=== PATIENT | female | born 1950 | race Caucasian/White ===

== ENCOUNTER → 2017-08-30 06:35 | Outpatient (CLI) | payer MEDICARE, OTHER, SELFPAY ==
--- NOTE | 2017-08-30 11:12 | STRESSREP ---
Stress Test Report Pharmacologic myocardial perfusion stress test. 67-year-old lady with a history of chest pain. Stress protocol: The EKG demonstrates normal sinus rhythm with a rate of 58 bpm normal intervals noted. Blood pressure is 130/78 mmHg. 0.4 mg of regadenoson was infused per usual protocol rapid intravenous saline flush injection. Continuous EKG monitoring was performed the maximum heart rate attained was 77 bpm which was 50% maximum predicted heart rate maximum workload attained was 1 metabolic equivalent. Resting blood pressure is 130/78 with a final blood pressure 142/82. Myocardial perfusion protocol. 12.0 mCi of technetium 99m sestamibi was injected at rest. 0.4 mg of regadenoson was infused per usual protocol. At peak infusion 33.8 mCi of technetium 99m sestamibi was injected. Stress images were obtained. Stress and rest images were reconstructed and compared in the short axis vertical long and horizontal long axis. Gated images were also obtained. Perfusion SPECT analysis: Review of the stress images demonstrate normal uptake of tracer noted in all areas of the myocardium. The resting images similarly demonstrate normal uptake of tracer noted in all areas of the myocardium. No areas of reversibility are noted to suggest ischemia and no previous infarct is noted. Gated SPECT analysis: The gated ejection fraction is noted to be 72%. Conclusion: Normal pharmacologic myocardial perfusion stress test. Preserved ejection fraction.
--- NOTE | 2017-08-30 11:17 | STRESSREP_ITS ---
Stress Test Report Pharmacologic myocardial perfusion stress test. 67-year-old lady with a history of chest pain. Stress protocol: The EKG demonstrates normal sinus rhythm with a rate of 58 bpm normal intervals noted. Blood pressure is 130/78 mmHg. 0.4 mg of regadenoson was infused per usual protocol rapid intravenous saline flush injection. Continuous EKG monitoring was performed the maximum heart rate attained was 77 bpm which was 50 % maximum predicted heart rate maximum workload attained was 1 metabolic equivalent. Resting blood pressure is 130/78 with a final blood pressure 142/ 82. Myocardial perfusion protocol. 12.0 mCi of technetium 99m sestamibi was injected at rest. 0.4 mg of regadenoson was infused per usual protocol. At peak infusion 33.8 mCi of technetium 99m sestamibi was injected. Stress images were obtained. Stress and rest images were reconstructed and compared in the short axis vertical long and horizontal long axis. Gated images were also obtained. Perfusion SPECT analysis: Review of the stress images demonstrate normal uptake of tracer noted in all areas of the myocardium. The resting images similarly demonstrate normal uptake of tracer noted in all areas of the myocardium. No areas of reversibility are noted to suggest ischemia and no previous infarct is noted. Gated SPECT analysis: The gated ejection fraction is noted to be 72%. Conclusion: Normal pharmacologic myocardial perfusion stress test. Preserved ejection fraction.
== END ==
PROVIDERS: Family Provider Family Medicine; PCP Family Medicine; Visit Provider Family Medicine
DX: R06.09 Other forms of dyspnea (principal)
CPT/HCPCS: 78452; 93017; A9500; A4216; J2785

== ENCOUNTER → 2017-09-08 10:52 | Outpatient (CLI) | payer MEDICARE, OTHER, SELFPAY ==
[2017-09-08 12:36] LABS: Absolute Lymphocyte Count 1.21 X10^3/ul (0.83-4.51); Absolute Neutrophil Count 3.7 X10^3/uL (2.0-7.7); Basophil# 0.04 X10^3/uL; Basophil% 0.7 % (0-1); Eosinophil# 0.09 X10^3/uL; Eosinophils% 1.7 % (0-5); Hematocrit 36.1 % (37-47); Hemoglobin 11.7 g/dl (12.0-15.0); Lymphocyte # 1.21 X10^3/ul (4.0); Lymphocyte % 22.4 % (19-41); Mean Corp Hgb Conc 32.4 g/gl (32-36); Mean Corpuscular Hgb 31.5 pg (27.0-32.0); Mean Corpuscular Volume 97.3 fL (81-99); Mean Platelet Vol. 10.9 fl (6.2-12.0); Monocyte# 0.33 X10^3/uL; Monocyte% 6.1 % (0-10); Neutrophil # 3.73 X10^3/uL (2.7-7.7); Neutrophil % 68.9 % (47-70); Platelet Count 288 K/mm3 (150-450); RBC Distribution Width CV 12.1 % (11.6-14.6); RBC Distribution Width SD 41.9 fl (35.1-43.9); Red Blood Count 3.71 M/mm3 (4.2-5.4); White Blood Count 5.4 K/mm3 (4.4-11.0)
[2017-09-08 12:37] LABS: POSITIVE COUNT NO; POSITIVE DIFFERENTIAL NO; POSITIVE MORPHOLOGY NO
[2017-09-08 12:46] LABS: ALB/GLOB Ratio 1.1 RATIO (0.9-2.4); AST(SGOT) 29 U/L (15-37); Alanine Aminotransfer ALT/SGPT 28 U/L (13-56); Albumin, Serum 3.7 g/dL (3.2-5.0); Alkaline Phosphatase 45 U/L (45-117); Anion Gap 8 (5-15); BUN 14 mg/dL (7-18); BUN/Creat Ratio 14.2 RATIO (10-20); Calcium,Total 8.9 mg/dL (8.5-10.1); Chloride 100 mmol/L (98-107); Creatinine, Serum 0.98 mg/dL (0.55-1.02); EST Glomerular Filtration Rate 60 mL/min (>60); Est Glom Filt Rate - Afr Amer 73 mL/min (>60); Globulin 3.4 g/dL (2.2-4.2); Glucose 132 mg/dL (74-106); Potassium 4.3 mmol/L (3.5-5.1); Protein, Total 7.1 g/dL (6.4-8.2); Sodium Level 140 mmol/L (136-145)
== END ==
PROVIDERS: Family Provider Family Medicine; PCP Family Medicine; Visit Provider Internal Medicine Rheumatology
DX: M06.4 Inflammatory polyarthropathy (principal); R76.8 Other specified abnormal immunological findings in serum; M79.7 Fibromyalgia; G43.909 Migraine, unspecified, not intractable, without status migrainosus; I10 Essential (primary) hypertension; F32.89 Other specified depressive episodes; M81.0 Age-related osteoporosis without current pathological fracture; N39.3 Stress incontinence (female) (male)
CPT/HCPCS: 36415; 80053; 85025

== ENCOUNTER → 2017-12-01 13:07 | Outpatient (CLI) | payer MEDICARE, OTHER, SELFPAY ==
[2017-12-01 14:29] LABS: Absolute Neutrophil Count 2.9 X10^3/uL (2.0-7.7); Basophil# 0.06 X10^3/uL; Basophil% 1.2 % (0-1); Eosinophil# 0.15 X10^3/uL; Eosinophils% 3.1 % (0-5); Hemoglobin 11.3 g/dl (12.0-15.0); Mean Corp Hgb Conc 33.2 g/gl (32-36); Mean Corpuscular Hgb 31.9 pg (27.0-32.0); Mean Platelet Vol. 10.9 fl (6.2-12.0); Monocyte# 0.44 X10^3/uL; Monocyte% 9.1 % (0-10); Neutrophil # 2.87 X10^3/uL (2.7-7.7); Neutrophil % 59.6 % (47-70); POSITIVE COUNT NO; POSITIVE DIFFERENTIAL NO; POSITIVE MORPHOLOGY NO; Platelet Count 275 K/mm3 (150-450); RBC Distribution Width CV 11.9 % (11.6-14.6); RBC Distribution Width SD 40.6 fl (35.1-43.9); Red Blood Count 3.54 M/mm3 (4.2-5.4); White Blood Count 4.8 K/mm3 (4.4-11.0)
[2017-12-01 14:59] LABS: ALB/GLOB Ratio 1.1 RATIO (0.9-2.4); AST(SGOT) 22 U/L (15-37); Alanine Aminotransfer ALT/SGPT 25 U/L (13-56); Albumin, Serum 3.6 g/dL (3.2-5.0); Alkaline Phosphatase 49 U/L (45-117); Anion Gap 7 (5-15); BUN 20 mg/dL (7-18); Calcium,Total 8.9 mg/dL (8.5-10.1); Chloride 98 mmol/L (98-107); EST Glomerular Filtration Rate 59 mL/min (>60); Est Glom Filt Rate - Afr Amer 71 mL/min (>60); Globulin 3.4 g/dL (2.2-4.2); Glucose 116 mg/dL (74-106); Potassium 3.5 mmol/L (3.5-5.1); Sodium Level 136 mmol/L (136-145)
== END ==
PROVIDERS: Family Provider Family Medicine; PCP Family Medicine; Visit Provider Internal Medicine Rheumatology
DX: M06.4 Inflammatory polyarthropathy (principal); R76.8 Other specified abnormal immunological findings in serum; M79.7 Fibromyalgia; G43.909 Migraine, unspecified, not intractable, without status migrainosus; I10 Essential (primary) hypertension; F32.9 Major depressive disorder, single episode, unspecified; M81.0 Age-related osteoporosis without current pathological fracture; N39.3 Stress incontinence (female) (male)
CPT/HCPCS: 36415; 80053; 85025

== ENCOUNTER → 2018-02-08 10:35 | Outpatient (CLI) | payer MEDICARE, OTHER, SELFPAY ==
--- NOTE | 2018-02-08 10:40 | RAD_ITS ---
STUDY: X-RAY CHEST REASON FOR EXAM: Female, 67 years old. Cough, shortness of breath. TECHNIQUE: PA and lateral chest COMPARISON: None. FINDINGS: The lungs are clear and expanded. Normal cardiomediastinal silhouette, roderick and pleural margins. No acute osseous or upper abdominal process. RAD/Chest PA and Lateral IMPRESSION: No acute cardiopulmonary process. Electronically Signed: Jim Estes, at 11:37 EDT Tel , Service support ,
[2018-02-08 12:39] LABS: D-Dimer Quantitative (DVT/PE) 0.58 FEU/ug/m (0.27-0.49)
[2018-02-08 12:59] LABS: Cholesterol 194 mg/dL (200); High Density Lipoprotein 61 mg/dL; Thyroid Stim Hormone (TSH) 1.97 uIU/mL (0.358-3.74); Triglycerides 153 mg/dL; Very Low Density Lipoprotein 31 mg/dL (5-40)
--- NOTE | 2018-02-08 14:46 | CT_ITS ---
STUDY: CTA CHEST REASON FOR EXAM: Female, 67 years old. Elevated d-dimer. RADIATION DOSAGE (If Supplied By Facility): CTDIvol = ( 14.75 ) mGy, DLP = ( 612.60 ) mGycm TECHNIQUE: The examination was performed with the intravenous administration of 100 ml of Isovue 370 contrast material. Post-processing of the angiographic images was performed, with multiplanar reformation and 3D reconstruction. Individualized dose optimization techniques were used for this CT. COMPARISON: X-ray chest 02/08/2018 FINDINGS: Supraclavicular: Unremarkable. Body wall soft tissues: No acute process. Osseous structures: No acute process. Upper abdomen: Limited evaluation, no acute process. Mediastinum: Normal esophagus. No mass or lymphadenopathy. Lungs: Minimal fissural atelectasis of the legs or fissure on the left. No acute pulmonary process. Heart: Mild/borderline cardiomegaly. No pericardial effusion. Epicardial lipomatosis and mild lipomatous hypertrophy of interatrial septum. No visible coronary calcifications. Aorta: Nondilated, widely patent cervical arch branching with no arch atherosclerosis. Pulmonary arteries: Nondilated with no large central pulmonary embolus. Peripheral evaluation is satisfactory into the proximal subsegmental divisions with no convincing evidence of peripheral pulmonary embolism. CT/CTA Chest W/WO Contrast IMPRESSION: There is no evidence of acute pulmonary elbow wasn't. No other acute cardiopulmonary process is identified. Electronically Signed: Jim Estes, at 16:07 EDT Tel , Service support ,
[2018-02-08 15:00] LABS: CREATININE FINGERSTICK 0.8 mg/dL (0.55-1.02)
== END ==
PROVIDERS: Family Provider Family Medicine; PCP Family Medicine; Visit Provider Family Medicine
DX: R05 Cough (principal); R79.89 Other specified abnormal findings of blood chemistry; R06.02 Shortness of breath; I10 Essential (primary) hypertension; M32.9 Systemic lupus erythematosus, unspecified
CPT/HCPCS: 36415; 71046; 71275; 80061; 84443; 85379; Q9967

== ENCOUNTER → 2018-02-28 12:47 | Outpatient (CLI) | payer MEDICARE, OTHER, SELFPAY | PROVIDERS: Family Provider Family Medicine; PCP Family Medicine; Visit Provider Family Medicine | DX: Z12.31 Encounter for screening mammogram for malignant neoplasm of breast (principal) | CPT/HCPCS: 77063; 77067 ==

== ENCOUNTER → 2018-05-04 06:58 | Outpatient (CLI) | payer MEDICARE, OTHER, SELFPAY ==
--- NOTE | 2018-05-04 09:54 | NEURO ---
NCS and/or EMG Patient Report Ordering Doctor: Gerri Tejeda DATE OF SERVICE: 05/04/18 This is a right upper extremity EMG and nerve conduction study performed on this 68-year-old female with a history of numbness and tingling as well as weakness in the right hand for approximately 3 months. There is a diagnosis of lupus as well however the patient indicates that she is asymptomatic. Is healthy otherwise with the exception of fibromyalgia. She does admit to neck pain. Right upper extremity sensory and motor nerve conduction study is performed. The median motor and sensory distal latencies are moderately prolonged with preservation of amplitude and conduction velocities. The ulnar motor and sensory and the radial sensory responses are normal. The median F wave is mildly prolonged compared to the ulnar F wave. Right upper extremity needle electrode mammography is performed. Muscles evaluated included the first dorsal osseous, abductor pollicis brevis, brachioradialis, biceps, triceps and deltoid muscles. The abductor pollicis brevis muscle did demonstrate somewhat large motor units however all other muscles tested demonstrated normal motor units and normal insertional activity with absence of pathologic spontaneous activity. There is no evidence of radiculopathy. Impression: Abnormal electrophysiologic study of the right upper extremity consistent with moderate carpal tunnel syndrome of the right wrist.
== END ==
PROVIDERS: Family Provider Family Medicine; PCP Family Medicine; Referring Provider Internal Medicine Rheumatology; Visit Provider Internal Medicine Rheumatology
DX: R20.2 Paresthesia of skin (principal); R20.0 Anesthesia of skin; M54.2 Cervicalgia
CPT/HCPCS: 95886; 95909

== ENCOUNTER → 2018-05-23 08:52 | Outpatient (CLI) | payer MEDICARE, OTHER, SELFPAY ==
[2018-05-23 10:53] LABS: ALB/GLOB Ratio 1.1 RATIO (0.9-2.4); AST(SGOT) 24 U/L (15-37); Alanine Aminotransfer ALT/SGPT 26 U/L (13-56); Albumin, Serum 3.7 g/dL (3.2-5.0); Alkaline Phosphatase 45 U/L (45-117); Anion Gap 8 (5-15); BUN 11 mg/dL (7-18); BUN/Creat Ratio 11.4 RATIO (10-20); Calcium,Total 8.9 mg/dL (8.5-10.1); Chloride 102 mmol/L (98-107); Creatinine, Serum 0.96 mg/dL (0.55-1.02); EST Glomerular Filtration Rate 61 mL/min (>60); Est Glom Filt Rate - Afr Amer 74 mL/min (>60); Globulin 3.3 g/dL (2.2-4.2); Glucose 92 mg/dL (74-106); Sodium Level 141 mmol/L (136-145)
[2018-05-23 12:43] LABS: Absolute Lymphocyte Count 0.84 X10^3/ul (0.83-4.51); Basophil# 0.04 X10^3/uL; Basophil% 0.9 % (0-1); Eosinophil# 0.12 X10^3/uL; Eosinophils% 2.8 % (0-5); Hemoglobin 11.9 g/dl (12.0-15.0); Lymphocyte # 0.84 X10^3/ul (4.0); Lymphocyte % 19.4 % (19-41); Mean Corp Hgb Conc 33.1 g/gl (32-36); Mean Corpuscular Hgb 31.8 pg (27.0-32.0); Mean Corpuscular Volume 96.3 fL (81-99); Mean Platelet Vol. 10.9 fl (6.2-12.0); Monocyte# 0.36 X10^3/uL; Monocyte% 8.3 % (0-10); Neutrophil # 2.97 X10^3/uL (2.7-7.7); Neutrophil % 68.6 % (47-70); Platelet Count 277 K/mm3 (150-450); RBC Distribution Width SD 40.5 fl (35.1-43.9); Red Blood Count 3.74 M/mm3 (4.2-5.4); White Blood Count 4.3 K/mm3 (4.4-11.0)
[2018-05-23 12:47] LABS: POSITIVE COUNT NO; POSITIVE DIFFERENTIAL NO; POSITIVE MORPHOLOGY NO
== END ==
PROVIDERS: Family Provider Family Medicine; PCP Family Medicine; Referring Provider Internal Medicine Rheumatology; Visit Provider Internal Medicine Rheumatology
DX: M06.4 Inflammatory polyarthropathy (principal); R76.8 Other specified abnormal immunological findings in serum; M79.7 Fibromyalgia; G43.909 Migraine, unspecified, not intractable, without status migrainosus; I10 Essential (primary) hypertension; F32.89 Other specified depressive episodes; M81.0 Age-related osteoporosis without current pathological fracture; N39.3 Stress incontinence (female) (male)
CPT/HCPCS: 36415; 80053; 85025

== ENCOUNTER 2018-08-17 10:30 | Outpatient (RCR) | payer MEDICARE, OTHER, SELFPAY ==
--- NOTE | 2018-08-02 13:33 | HP.PTEVAL ---
Patient's Visit Information YADIRA PEREZ is a 68 year old F referred to Physical Therapy by Carl Bourgeois DO with a diagnosis of vertigo. Date of Evaluation: 08/02/18 Physical Therapist: Reggie Hawley, KATHY, OCS, CSCS - Visit Plan Frequency: 1-2x /Week Duration: 2-4 Weeks Plan: 1-2x/week for 2-4 weeks as needed for positional testing/treatment and balance as needed. - Subjective Findings: Doctor thinks I have vertigo. Feels really dizzy on top of head and full. This is constant. Has been there for a couple months. Remembers being out with in May adn getting dizzy bending over and getting sick. Now gets spinning dizzy if she sits up in am and when she moves head too quick. Dizzyness lasts 5 minutes. Activities are normal as she is stubborn. Sleep is OK. Retired. Basic ADLs are OK just not fun. Drives OK. Balance is OK, no falls. - Objective Walks normal and trasnfers easily without concerns. c/s AROM is WFL and without pain. - L Hallpike. - roll test. + R hallpike for assymetrical dizzyness and object movement, no obvious nystagmus. Treateed with R Bravo and instruct - Balance Scores Functional Gait Assessment Score: 23 % Disability: 23.3400 CATSIB Score (Max score 120 seconds): 34 - Goals Goal 1:: Abolish vertigenous feelings 100% Goal Time Frame: 2-4 Weeks Goal 2:: Pt feel back to normal with housework Goal Time Frame: 2-4 Weeks - Rehabilitation Potential Physical Therapy Diagnosis: vertigo likely positional Rehabilitation Potential: Good - Anticipated Interventions Patient/Client Instruction: Educate patient on: Condition, Plan of Care For the Purpose of:: To increase tolerance to activity/condition/position Therapeutic Exercise to Include: Balance training Comment: positional test adn treatments For the Purpose of:: To increase tolerance to activity/condition/position, To improve balance Thank you for the opportunity to evaluate your patient. For Medicare and Medicare HMO plans, please review the plan of care and approve it. It will need to be FAXED BACK to us at [phone] for Medicare purposes. For Medicare only, by signing this I certify the plan of care. Please let me know if there are questions or concerns regarding this plan of care. Physician Signature: Date:
--- NOTE | 2018-08-17 10:57 | HP.PTDCSUM ---
HP - PT D/C Summary It has been my pleasure to treat YADIRA PEREZ under orders from Carl Bourgeois DO, for the diagnosis of vertigo for a total of 4 visit(s). Discharge Date: 08/17/18 Please see the following information for a summary of their discharge status. - Subjective Subjective: Woke up with MONROY and eye pain today for no reason. Doing exercises but never got past 30 seconds. Sitting up from lying down still makes her dizzy for 5 seconds. Exercises cause a couple seconds of dizzyness for 5 seconds. No new meds lately, doctor thought might be caused by cymbalta. May try to change that. 6 month f/u. Exercises are not helping or changing(side to side lying) - Overall Improvement % Improvement: 50 - Objective Objective/Function: VOR 30 second makes slightly dizzy quickly, - B hallpike but dizzy coming up from both sides was the main causative factor today, no nystagmus. Balacne is better and normal for age now. - Goals Goal 1:: Abolish vertigenous feelings 100% Goal Progress: Not Progressing Goal 2:: Pt feel back to normal with housework Goal Progress: Not Progressing - Plan Plan: D/C, pt back to doctor office for next medical step(medication change, blood pressure etc.) - D/C Information Discharge Comments: Pt to schedule with doctor for next medical step as she is not progressing in PT. If there are questions or concerns regarding this patient's physical therapy, please feel free to call me at [phone]. Thank you for the referral of this patient. Sincerely, Reggie Hawley, DPT, OCS, CSCS
== END 2018-08-17 19:00 | disposition home or self-care (01) ==
LOC: PT 10:30
PROVIDERS: Family Provider Family Medicine; PCP Family Medicine; Referring Provider Family Medicine; Visit Provider Family Medicine
DX: R42 Dizziness and giddiness (principal)
CPT/HCPCS: 97161; 97530

== ENCOUNTER → 2018-09-12 10:20 | Outpatient (CLI) | payer MEDICARE, OTHER, SELFPAY ==
--- NOTE | 2018-09-12 10:52 | MRI_ITS ---
STUDY: MRI BRAIN WITH AND WITHOUT CONTRAST (ATTENTION INTERNAL AUDITORY CANALS - I.A.C.'s) REASON FOR EXAM: Female, 68 years old. Vertigo and left-sided hearing loss with visual changes for 3 months TECHNIQUE: Standardized multiplanar fat and water weighted pulse sequences were obtained. Gadavist 10 IV was administered for the contrast portion of the examination. COMPARISON: None. FINDINGS: Normal bilateral temporal bones. Normal bilateral internal auditory canals. There is no demonstrated intracanalicular or cisternal vestibular schwannoma (acoustic neuroma). There is no enhancement of the bilateral VIIth or VIIIth cranial nerves. Normal bilateral cochlea, vestibules and semicircular canals. Normal size of the ventricles and extra-axial spaces for the patient's age. There are a limited number of small white matter hyperintensities, distributed throughout the deep white matter tracts of the cerebral hemispheres, consistent with mild chronic white matter ischemic changes. Normal bilateral basal ganglia. Normal thalami. Normal flow voids within the major intracranial circulation suggesting patency by spin echo criteria. Normal venous enhancement. There is no enhancing intra-axial or extra-axial abnormality. There is no extra-axial fluid accumulation. Normal sella turcica, pituitary gland, infundibular stalk, optic chiasm and hypothalamus. Normal tectal plate and pineal gland. Normal midbrain, ron and medulla. Normal cerebellum. Normal basal cisterns. No demonstrated orbital abnormality, within the constraints of a routine brain study. Normal visualized paranasal sinuses. Normal calvarium and skull base. Normal visualized soft tissue structures. Normal visualized upper cervical spine. MRI/Brain W/WO Contrast IMPRESSION: Normal unenhanced and enhanced MRI of the bilateral internal auditory canals (I.A.C's). No evidence of acute intra-axial pathology. Mild microangiopathic white matter disease. Electronically Signed: Chai Veliz MD at 14:51 EST Tel , Service support ,
[2018-09-12 11:10] LABS: CREATININE FINGERSTICK 0.9 mg/dL (0.55-1.02); EGFR FINGERSTICK > 60.0000 mL/min (>60)
== END ==
PROVIDERS: Family Provider Family Medicine; PCP Family Medicine; Referring Provider Family Medicine; Visit Provider Family Medicine
DX: R51 Headache (principal); R42 Dizziness and giddiness; H53.8 Other visual disturbances; H53.459 Other localized visual field defect, unspecified eye; H91.90 Unspecified hearing loss, unspecified ear
CPT/HCPCS: 70553; A9585

== ENCOUNTER → 2018-09-15 12:42 | Outpatient (CLI) | payer MEDICARE, OTHER, SELFPAY ==
[2018-09-21 12:23] LABS: HPV Reflexed? NOT INDICATED
== END ==
PROVIDERS: Family Provider Family Medicine; PCP Family Medicine; Visit Provider Family Medicine
DX: Z12.4 Encounter for screening for malignant neoplasm of cervix (principal); N95.0 Postmenopausal bleeding
CPT/HCPCS: 88175; G0145

== ENCOUNTER → 2018-09-16 14:16 | Outpatient (CLI) | payer MEDICARE, OTHER, SELFPAY ==
--- NOTE | 2018-09-16 14:22 | US_ITS ---
STUDY: ULTRASOUND TRANSVAGINAL CLINICAL: Female, 68 years old. Postmenopausal bleeding for one week TECHNIQUE: Transvaginal COMPARISON: None. FINDINGS: Normal uterine size measuring 9.0 x 5.0 x 3.3 cm in maximal craniocaudal dimension. Uterus is anteflexed with small hypoechoic myometrial masses measuring 1.0 and 1.2 cm compatible with fibroids. Normal endometrial thickness measuring 10 mm. There are endometrial calcifications with posterior ringdown. The endometrial canal is fluid distended, particularly in the cervical region. Normal uterine cervix. Not visualized on transvaginal imaging. Not visualized on transvaginal imaging. There is no free fluid in the pelvis. Polycystic ovary disease: No. US/Pelvic (Non ) IMPRESSION: 1. Fluid distended endometrial canal including at the cervix, considered abnormal for postmenopausal female. Endometrial hyperplasia/neoplasm should be considered. 2. Myometrial uterine fibroids. Electronically Signed: Osvaldo Tyler MD at 11:37 EST , Service support ,
--- NOTE | 2018-09-16 14:30 | US_ITS ---
STUDY: ULTRASOUND TRANSVAGINAL CLINICAL: Female, 68 years old. Postmenopausal bleeding for one week TECHNIQUE: Transvaginal COMPARISON: None. FINDINGS: Normal uterine size measuring 9.0 x 5.0 x 3.3 cm in maximal craniocaudal dimension. Uterus is anteflexed with small hypoechoic myometrial masses measuring 1.0 and 1.2 cm compatible with fibroids. Normal endometrial thickness measuring 10 mm. There are endometrial calcifications with posterior ringdown. The endometrial canal is fluid distended, particularly in the cervical region. Normal uterine cervix. Not visualized on transvaginal imaging. Not visualized on transvaginal imaging. There is no free fluid in the pelvis. Polycystic ovary disease: No. US/Transvaginal Non- IMPRESSION: 1. Fluid distended endometrial canal including at the cervix, considered abnormal for postmenopausal female. Endometrial hyperplasia/neoplasm should be considered. 2. Myometrial uterine fibroids. Electronically Signed: Osvaldo Tyler MD at 11:37 EST , Service support ,
== END ==
PROVIDERS: Family Provider Family Medicine; PCP Family Medicine; Referring Provider Family Medicine; Visit Provider Family Medicine
DX: N95.0 Postmenopausal bleeding (principal)
CPT/HCPCS: 76830; 76856

== ENCOUNTER → 2018-09-20 15:38 | Outpatient (CLI) | payer MEDICARE, OTHER, SELFPAY ==
[2018-09-20 13:42] VITALS: BMI 32.2
--- NOTE | 2018-09-20 14:30 | EMB_PTH ---
PATIENT: YADIRA PEREZ LOC: [facility] U#:[id number] AGE/SX: 75/F ROOM: RE09/20/[address]: SNEHA Roy : 1950 BED: DIS: SPEC #: [id number] RECD: 09/20/18 15:29 STATUS: SURINDER JORGE #: [id number] ZION: 09/20/18 14:[address]: Margot Bridges NP DEPT: SURGICAL PATHOLOGY RECD BY: Neo Pierson ENTERED: 09/21/18 12:49 SP TYPE: ENDOM BX/C MACARENA DR: Dr. Carl Bourgeois DO Tissues: Endometrium, NOS Procedures: Surgery Specimen Level IV HEADER OPERATION: Endometrial biopsy PRE-OP DIAGNOSIS: Abnormal uterine bleeding TISSUE SUBMITTED: Endometrium lining MICROSCOPIC DIAGNOSIS Endometrium, biopsy: Scant strips of benign superficial glandular mucosa. Fibrinopurulent material. AM:holli 09/22/18 MICROSCOPIC DESCRIPTION Slides are reviewed. GROSS DESCRIPTION Received is one container labeled with the patient's name and not further designated. The specimen consists of multiple irregular fragments of light pink-collins soft tissue that in aggregate measure 2.2 x 2 x 0.2 cm. The specimen is totally submitted in one cassette. / AM:holli 09/21/18 TC:2 CPT: 84955
== END ==
PROVIDERS: Family Provider Family Medicine; PCP Family Medicine; Referring Provider Nurse Practitioner Women's Health; Visit Provider Nurse Practitioner Women's Health
DX: N93.9 Abnormal uterine and vaginal bleeding, unspecified (principal)
CPT/HCPCS: 88305

== ENCOUNTER → 2018-09-29 10:29 | Outpatient (CLI) | payer MEDICARE, OTHER, SELFPAY ==
[2018-09-29 10:26] VITALS: BMI 32.2
[2018-09-29 10:58] LABS: Absolute Lymphocyte Count 1.48 X10^3/ul (0.83-4.51); Absolute Neutrophil Count 3.9 X10^3/uL (2.0-7.7); Basophil# 0.09 X10^3/uL; Basophil% 1.5 % (0-1); Eosinophil# 0.19 X10^3/uL; Eosinophils% 3.1 % (0-5); Hematocrit 37.9 % (37-47); Hemoglobin 12.1 g/dl (12.0-15.0); Lymphocyte # 1.48 X10^3/ul (4.0); Lymphocyte % 24.5 % (19-41); Mean Corp Hgb Conc 31.9 g/gl (32-36); Mean Corpuscular Hgb 31.8 pg (27.0-32.0); Mean Corpuscular Volume 99.7 fL (81-99); Mean Platelet Vol. 10.6 fl (6.2-12.0); Monocyte# 0.37 X10^3/uL; Monocyte% 6.1 % (0-10); Neutrophil # 3.89 X10^3/uL (2.7-7.7); Neutrophil % 64.5 % (47-70); Platelet Count 329 K/mm3 (150-450); RBC Distribution Width CV 12.1 % (11.6-14.6)
[2018-09-29 11:00] LABS: POSITIVE COUNT NO; POSITIVE DIFFERENTIAL NO; POSITIVE MORPHOLOGY NO
--- NOTE | 2018-09-29 11:20 | EMB_PTH ---
PATIENT: YADIRA PEREZ LOC: [facility] U#:[id number] AGE/SX: 75/F ROOM: RE09/29/[address]: Dr. Margarita Randolph MD : 1950 BED: DIS: SPEC #: [id number] RECD: 09/29/18 17:26 STATUS: SURINDER JORGE #: [id number] ZION: 09/29/18 11:[address]: Margarita Randolph DEPT: SURGICAL PATHOLOGY RECD BY: Neo Pierson ENTERED: 09/30/18 14:01 SP TYPE: ENDOM BX/C LATRICEHR DR: Dr. Carl Bourgeois DO Tissues: Endometrium, NOS Procedures: Surgery Specimen Level IV HEADER OPERATION: Endometrial biopsy PRE-OP DIAGNOSIS: Abnormal uterine bleeding TISSUE SUBMITTED: Endometrial lining MICROSCOPIC DIAGNOSIS Endometrium, biopsy: Scant strips of benign superficial endometrium. Fragments of endocervical squamous metaplasia. See comment. AM:holli 10/03/18 COMMENT Mucoid material with acute inflammatory cells are present. Clinical correlation is suggested. Reference is made to the patient's previous endometrial biopsy from 09/22/18 ([id number]) in which scant strips of benign superficial glandular mucosa was identified. MICROSCOPIC DESCRIPTION Slides are reviewed. GROSS DESCRIPTION Received is one container labeled with the patient's name and not further designated. The specimen consists of multiple irregular fragments of collins mucoid tissue that in aggregate measure 2.5 x 1 x 0.1 cm. The specimen is totally submitted in one cassette. / SJ:holli 09/30/18 TC:5 CPT: 59107
== END ==
PROVIDERS: Nurse Practitioner Women's Health; Family Provider Family Medicine; PCP Family Medicine; Referring Provider Obstetrics & Gynecology; Visit Provider Obstetrics & Gynecology
DX: N93.9 Abnormal uterine and vaginal bleeding, unspecified (principal)
CPT/HCPCS: 85025; 86850; 86900; 88305

== ENCOUNTER 2018-10-20 13:54 | Day surgery (SDC) | payer MEDICARE, OTHER, SELFPAY ==
[2018-09-20 13:42] VITALS: BMI 32.2
[2018-09-29 10:26] VITALS: BMI 32.2
--- NOTE | 2018-10-03 14:41 | NURSING ---
Lab called this morning saying the type and screen was drawn too early and will need to be redrawn day of surgery. PAT date is 10/13/18. Day of surgery is scheduled for 10/20/18with Dr. Randolph. Written order was placed in computer.
--- NOTE | 2018-10-20 08:11 | HP.PCM_ITS ---
- Problem List (1) Stress incontinence in female Status: Chronic (2) Osteoporosis Status: Chronic (3) Osteoarthritis Status: Chronic (4) SLE (systemic lupus erythematosus related syndrome) Status: Chronic (5) Thickened endometrium Status: Acute (6) Uterine fibroid Status: Acute Qualifiers: (7) Enlarged uterus Status: Acute (8) Postmenopausal bleeding Status: Acute (9) Vertigo Status: Acute (10) Lupus Status: Acute History and Physical Date of Admission: 10/20/18 Intake Vital Signs 09/29/18 Height 5 ft 7 in 09/29/18 Weight: 207 lb 09/29/18 Body Mass Index (BMI) 32.4 09/29/18 Blood Pressure 134/70 H Intake Visit 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: 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 Is patient in pain?: No Allergies codeine Allergy (Verified 09/29/18 10:00) Rash Medications Ascorbic Acid/Multivit-Min [Emergen-C 1,000 mg Packet] 1,000 mg PO DAILY 11/26/15 [History Confirmed 09/29/18] Calcium Carbonate [Calcium] 500 mg PO TID 11/26/15 [History Confirmed 09/29/18] Celecoxib [Celebrex] 200 mg PO DAILY 11/26/15 [History Confirmed 09/29/18] Cholecalciferol (VIT D3) [Vitamin D3] 2,000 unit PO BID 11/26/15 [History Confirmed 09/29/18] Duloxetine Hcl [Cymbalta] 30 mg PO DAILY 11/26/15 [History Confirmed 09/29/18] Ferrous Fumarate 325 mg PO QODAY 11/26/15 [History Confirmed 09/29/18] Hydrochlorothiazide [Hctz] 25 mg PO DAILY 11/26/15 [History Confirmed 09/29/18] Ibandronate Sodium [Boniva] 150 mg PO Q30D 11/26/15 [History Confirmed 09/29/18] Propranolol HCl [Inderal (Beta Naeem)] 40 mg PO BID 11/26/15 [History Confirmed 09/29/18] Is last menstrual period known: No Post menopausal: Yes Patient : No : No PFSH Medical History Stress incontinence in female (Chronic) Osteoporosis (Chronic) Osteoarthritis (Chronic) SLE (systemic lupus erythematosus related syndrome) (Chronic) Arthritis (Acute) Carpal tunnel syndrome, right (Acute) Dyspnea on exertion (Acute) Hot flashes (Acute) Lupus (Acute) Vaginal ulcer (Acute) Depressive disorder (Chronic) Hypertension (Chronic) Migraine headache (Chronic) Surgical History H/O tubal ligation (Acute) History of hernia surgery (Acute) History of hip surgery (Acute) History of tonsillectomy (Acute) Family History Sister Lupus Mother CVA (cerebral vascular accident) Heart disease Father Heart disease Brother Heart disease Sister Diabetes Social History adopted: No household members: spouse housing: house number of children: 1 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 status: retired 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 she has had postmenopaual bleeding and now it has stopped with hormones. Female Reproductive History Questions: Metorrhagia: No Menopausal Symptoms: No night sweats Pregancy History 1 Elective abortions Hx Para 1 Spontaneous abortions Hx # Term Pregnancies Ectopic pregnancies Hx # Pregnancies Multiple births # of living children 1 Past Pregnancies Del. Date Name GA/Weeks Outcome Route Bth Weight Infant Gen Labor Lgth Anesthesia Del [facility] Provider FOB Unknown 1965 Female ROS Const Constitutional: Denies fatigue, night sweats, weight gain or weight loss ENT ENT: Reports system reviewed and no additional complaints, except as docu Cardio Card: Denies chest pain Resp Resp: Denies cough or dyspnea GI GI: Reports as per HPI; denies abdominal pain, constipation, nausea or vomiting : Denies nipple discharge, urinary frequency, urinary incontinence, urinary hesitancy, urinary urgency, vaginal discharge, vaginal dryness, vaginal odor or vaginal itching Musc Musc: Denies joint pain, back pain or muscle weakness Skin Skin/Breast: Denies hair loss, change in hair, dry skin, breast lump, breast pain, breast skin changes or nipple discharge Neuro Neuro: Reports system reviewed and no additional complaints, except as docu Psych Psych: Reports system reviewed and no additional complaints, except as docu Endo Endo: Denies cold intolerance, excessive sweating, heat intolerance or increased thirst José Miguel/Lymph Hematologic/Lymphatic: Denies easy bleeding, Denies easy bruising, Denies enlarged lymph nodes Exam Const General: cooperative, healthy appearing, comfortable, no acute distress, well developed Orientation: alert [facility] Head: normal to inspection, normocephalic Ears: hearing grossly normal bilaterally, external ears normal Nose: external nose normal, nares normal Face and sinus: normal facial exam Neck Neck: normal visual inspection, no lymphadenopathy Thyroid: thyroid normal Chest Chest palpation & inspection: normal inspection of the chest Resp Effort & Inspection: normal respiratory effort Cardio Rate: regular rate Rhythm: regular rhythm GI Inspection: normal to inspection, non-distended Palpation: soft, no hepatosplenomegaly Musc Other: gross motor intact no deficits, full bilateral strength Skin General: no rashes or lesions noted Neuro General: alert, awake, moves all extremities, no focal motor deficits Motor: muscle tone normal throughout Extrem General: normal to inspection, no pedal edema Psych Appearance: grossly normal Mental Status: mental status grossly normal Affect: normal affect Speech and Movement: speech and movement normal Assessment & Plan Problems 1. Postmenopausal bleeding N95.0 2. Enlarged uterus N85.2 3. Thickened endometrium R93.89 4. Uterine leiomyoma, unspecified location D25.9 Plan discussed surgical risks including risks of anesthesia, infection, bleeding, injury to bowel, bladder or blood vessels, and patient wishes to proceed with surgery. plan d and c hysteroscopy Coding Level of Care Code No Charge Diagnoses Postmenopausal bleeding N95.0 Enlarged uterus N85.2 Thickened endometrium R93.89 Uterine leiomyoma, unspecified location D25.9 ??Uterine leiomyoma location: unspecified location UPDATE- I have seen the patient and performed any clinically relevant updates to the history and physical exam. Margarita Randolph MD
[2018-10-20 14:39] VITALS: BP 118/78; PULSE 61; RESP 18; TEMP 37.6; O2SAT 100; BMI 32.2
--- NOTE | 2018-10-20 15:30 | EMB_PTH ---
PATIENT: YADIRA PEREZ LOC: [facility] U#:[id number] AGE/SX: 68/F ROOM: RE10/20/[address]: Dr. Margarita Randolph MD : 1950 BED: DIS: 10/20/2018 SPEC #: [id number] RECD: 10/21/18 07:54 STATUS: SURINDER JORGE #: [id number] ZION: 10/20/18 15:[address]: Margarita Randolph DEPT: SURGICAL PATHOLOGY RECD BY: Neo Pierson ENTERED: 10/21/18 09:47 SP TYPE: ENDOM BX/C MACARENA DR: Dr. Carl Bourgeois DO Tissues: Endometrium, NOS Procedures: Surgery Specimen Level IV HEADER OPERATION: Hysteroscopy, dilation and curettage PRE-OP DIAGNOSIS: Postmenopausal bleeding, enlarged uterus, thickened endometrium, uterine leiomyoma TISSUE SUBMITTED: Endometrial curettings MICROSCOPIC DIAGNOSIS Endometrial curettings: A few fragments of benign inactive endometrial tissue. Fragments of benign ecto- and endocervical epithelium, blood and mucous. A few fragments of myometrium. See comment. SIMÓN:holli 10/24/18 COMMENT The specimen predominantly consists of ecto- and endocervical mucosa, blood and mucous. Please make reference to previous specimens ([id number]) endometrium, biopsy with diagnosis of scant strips of superficial glandular mucosa and fibrinopurulent material and ([id number]) endometrium, biopsy with diagnosis of scant strips of benign superficial endometrium and fragments of endocervical squamous metaplasia. Correlation with clinical findings and appropriate follow up are necessary. MICROSCOPIC DESCRIPTION Slides are reviewed. GROSS DESCRIPTION Received in fixative is one container labeled with the patient's name and designated endometrial curettings. The specimen consists of multiple fragments of collins hemorrhagic soft tissue mixed with mucoid tissue that in aggregate measure 3 x 2.5 x 0.3 cm. The specimen is totally submitted in one cassette. / SIMÓN:holli 10/21/18 TC:5 CPT: 41904
--- NOTE | 2018-10-20 15:36 | PCM.OPRPT ---
Problem List (1) Stress incontinence in female Status: Chronic (2) Osteoporosis Status: Chronic (3) Osteoarthritis Status: Chronic (4) SLE (systemic lupus erythematosus related syndrome) Status: Chronic (5) Thickened endometrium Status: Acute (6) Uterine fibroid Status: Acute Qualifiers: (7) Enlarged uterus Status: Acute (8) Postmenopausal bleeding Status: Acute (9) Vertigo Status: Acute (10) Lupus Status: Acute Report of Operation Date of Procedure: 10/20/18 Pre-Operative Diagnosis: postmenopausal bleeding Post-Operative Diagnosis: same Surgery/Procedure Performed:: d and c hysteroscopy Description of Surgical Findings:: mildly thickened lining Type of Anesthesia:: Local MAC Special Medications: none Specimen's removed: Endometrial curettings Drains: none Estimated Blood Loss (mL): minimal Fluids Replaced: Crystalloid Description of Procedure: Patient was prepped and draped in a normal sterile fashion under MAC anesthesia. A weighted speculum was placed in the vagina and the anterior lip of the cervix was grasped with a single-tooth tenaculum. A paracervical block was placed with 1% lidocaine. Cervix was progressively dilated to allow passage of a 5 mm hysteroscope. The lining was fully visualized and noted to have a mildly thickened lining with no gross abnormalities. Uterine sounded to 8 cm. Curettage was performed and a small amount of tissue was removed, sent to pathology. All instruments were removed from the vagina and excellent hemostasis was noted. Patient was awoken and taken to recovery in stable condition. Grafts/Implants Used: none - Complications none
--- NOTE | 2018-10-20 15:40 | DCINST_ITS ---
Discharge Diet: No Restrictions Discharge Activity: Return to Normal Activity, May Shower, May Take a Tub Bath Allergies/Adverse Reactions: Allergies codeine Allergy (Verified 10/20/18 14:38) Rash Medications to take at Discharge Calcium Carbonate [Calcium] 500 mg PO TID 11/26/15 Celecoxib [Celebrex] 200 mg PO BID 11/26/15 Cholecalciferol (VIT D3) [Vitamin D3] 2,000 unit PO BID 11/26/15 Duloxetine Hcl [Cymbalta] 30 mg PO DAILY 11/26/15 Ferrous Fumarate 325 mg PO DAILY 11/26/15 Hydrochlorothiazide [Hctz] 25 mg PO DAILY 11/26/15 Ibandronate Sodium [Boniva] 150 mg PO Q30D 11/26/15 Propranolol HCl [Inderal (Beta Naeem)] 40 mg PO BID 11/26/15 Orders to be completed after discharge: Type & Screen Time Frame: 10/20/18, Facility: [facility], Location: Laboratory Primary Care Physician: Carl Bourgeois DO [Primary Care Provider] - Test Results: Test results from this visit will be discussed in further detail at your follow- up appointment, if applicable. Please Follow Up With: Margarita Randolph MD - [phone]
[2018-10-20 15:44] VITALS: BP 118/78; BP 123/70; PULSE 66; RESP 16; TEMP 36.4; O2SAT 97
[2018-10-20 15:49] VITALS: BP 114/70; BP 118/78; PULSE 66; RESP 16; O2SAT 100
[2018-10-20 15:54] VITALS: BP 118/78; BP 123/74; PULSE 65; RESP 16; O2SAT 100
[2018-10-20 15:59] VITALS: BP 118/78; BP 123/75; PULSE 66; RESP 16; TEMP 36.3; O2SAT 100
[2018-10-20 16:17] VITALS: BP 118/78
== END 2018-10-20 16:36 | disposition home or self-care (01) ==
LOC: SDC 13:55 → AC 13:56
PROVIDERS: Family Provider Family Medicine; PCP Family Medicine; Referring Provider Obstetrics & Gynecology; Visit Provider Obstetrics & Gynecology
PROC: 0UDB8ZZ Extraction of Endometrium, Via Natural or Artificial Opening Endoscopic (ICD-10-PCS; CPT 58558; principal; 2018-10-20 15:20)
DX: N95.0 Postmenopausal bleeding (principal); N85.2 Hypertrophy of uterus; D25.9 Leiomyoma of uterus, unspecified; R93.89 Abnormal findings on diagnostic imaging of other specified body structures; N39.3 Stress incontinence (female) (male); M32.9 Systemic lupus erythematosus, unspecified; I10 Essential (primary) hypertension; D64.9 Anemia, unspecified; M19.90 Unspecified osteoarthritis, unspecified site; F32.9 Major depressive disorder, single episode, unspecified; M81.0 Age-related osteoporosis without current pathological fracture; Z78.0 Asymptomatic menopausal state; Z79.899 Other long term (current) drug therapy; Z87.2 Personal history of diseases of the skin and subcutaneous tissue
CPT/HCPCS: 58558; 36415; 86850; 86900; 88305; J7120

== ENCOUNTER → 2018-11-14 10:37 | Outpatient (CLI) | payer MEDICARE, OTHER, SELFPAY ==
[2018-11-03 10:43] VITALS: BMI 32.2
[2018-11-14 12:26] LABS: Absolute Lymphocyte Count 1.11 X10^3/ul (0.83-4.51); Absolute Neutrophil Count 2.6 X10^3/uL (2.0-7.7); Basophil# 0.07 X10^3/uL; Basophil% 1.7 % (0-1); Eosinophil# 0.12 X10^3/uL; Eosinophils% 2.8 % (0-5); Hematocrit 38.8 % (37-47); Hemoglobin 12.5 g/dl (12.0-15.0); Lymphocyte # 1.11 X10^3/ul (4.0); Lymphocyte % 26.2 % (19-41); Mean Corp Hgb Conc 32.2 g/gl (32-36); Mean Corpuscular Hgb 30.7 pg (27.0-32.0); Mean Corpuscular Volume 95.3 fL (81-99); Mean Platelet Vol. 10.9 fl (6.2-12.0); Monocyte# 0.31 X10^3/uL; Monocyte% 7.3 % (0-10); Neutrophil # 2.61 X10^3/uL (2.7-7.7); Neutrophil % 61.8 % (47-70); Platelet Count 267 K/mm3 (150-450); RBC Distribution Width SD 40.9 fl (35.1-43.9); Red Blood Count 4.07 M/mm3 (4.2-5.4); White Blood Count 4.2 K/mm3 (4.4-11.0)
[2018-11-14 12:31] LABS: POSITIVE COUNT NO; POSITIVE DIFFERENTIAL NO; POSITIVE MORPHOLOGY NO
[2018-11-14 12:51] LABS: ALB/GLOB Ratio 1.2 RATIO (0.9-2.4); AST(SGOT) 21 U/L (15-37); Alanine Aminotransfer ALT/SGPT 22 U/L (13-56); Albumin, Serum 3.9 g/dL (3.2-5.0); Alkaline Phosphatase 48 U/L (45-117); Anion Gap 2 (5-15); BUN 11 mg/dL (7-18); BUN/Creat Ratio 11.7 RATIO (10-20); Calcium,Total 8.7 mg/dL (8.5-10.1); Chloride 109 mmol/L (98-107); Creatinine, Serum 0.94 mg/dL (0.55-1.02); EST Glomerular Filtration Rate 63 mL/min (>60); Est Glom Filt Rate - Afr Amer 76 mL/min (>60); Globulin 3.3 g/dL (2.2-4.2); Glucose 95 mg/dL (74-106); Potassium 4.4 mmol/L (3.5-5.1); Protein, Total 7.2 g/dL (6.4-8.2); Sodium Level 141 mmol/L (136-145)
== END ==
PROVIDERS: Family Provider Family Medicine; PCP Family Medicine; Referring Provider Internal Medicine Rheumatology; Visit Provider Internal Medicine Rheumatology
DX: M06.4 Inflammatory polyarthropathy (principal); R76.8 Other specified abnormal immunological findings in serum; M79.7 Fibromyalgia; G43.909 Migraine, unspecified, not intractable, without status migrainosus; I10 Essential (primary) hypertension; F32.89 Other specified depressive episodes; M81.0 Age-related osteoporosis without current pathological fracture; N39.3 Stress incontinence (female) (male)
CPT/HCPCS: 36415; 80053; 85025

== ENCOUNTER → 2019-03-16 16:20 | Outpatient (CLI) | payer MEDICARE, OTHER, SELFPAY ==
[2018-11-03 10:43] VITALS: BMI 32.2
--- NOTE | 2019-03-16 16:25 | BI_ITS ---
MAMMOGRAPHY - BILATERAL SCREENING REASON FOR EXAM: Female, 68 years old. Routine annual screening examination. PERTINENT HISTORY: Non-contributory. TECHNIQUE: Digital bilateral breast sarath (3D mammographic acquisition) in the CC and MLO projections. 2-D mediolateral oblique (MLO) and craniocaudad (CC) views of both breasts were obtained. CAD: Full Field Digital Mammography with Computer Added Detection was performed. COMPARISON: Comparison is made with prior examination dated February 28, 2018 and February 17, 2017. FINDINGS: Breast Composition: There are scattered areas of fibroglandular density. There are no dominant masses or suspicious calcifications. Stable small bilateral benign appearing axillary lymph nodes. No other significant abnormalities are identified. There has been no significant change since the prior study. BI/SCREEN MAMM (CAD) W/SARATH BILAT IMPRESSION: Stable bilateral screening mammogram. Yearly follow-up mammogram recommended. (A) ASSESSMENT CATEGORY: BIRADS Category 2: Benign. A letter regarding these results will be sent to the patient by the facility within 30 days. Approximately 10% of breast cancers are not detected by mammography. A normal mammogram should not delay biopsy of a clinically suspicious abnormality. [id number] Electronically Signed: Manfred Aaron, at 8:25 EDT , Service support ,
== END ==
PROVIDERS: Family Provider Family Medicine; PCP Family Medicine; Referring Provider Family Medicine; Visit Provider Family Medicine
DX: Z12.31 Encounter for screening mammogram for malignant neoplasm of breast (principal)
CPT/HCPCS: 77063; 77067

== ENCOUNTER → 2019-05-08 12:15 | Outpatient (CLI) | payer MEDICARE, OTHER, SELFPAY ==
[2018-11-03 10:43] VITALS: BMI 32.2
[2019-05-08 14:11] LABS: Absolute Lymphocyte Count 1.25 X10^3/uL (0.83-4.51); Absolute Neutrophil Count 3.2 X10^3/uL (2.0-7.7); Basophil# 0.05 X10^3/uL; Eosinophil# 0.08 X10^3/uL; Eosinophils% 1.6 % (0-5); Hematocrit 37.4 % (37-47); Lymphocyte # 1.25 X10^3/ul (4.0); Lymphocyte % 25.5 % (19-41); Mean Corp Hgb Conc 32.1 g/dL (32-36); Mean Corpuscular Hgb 31.2 pg (27.0-32.0); Mean Corpuscular Volume 97.1 fL (81-99); Mean Platelet Vol. 11.2 fl (6.2-12.0); Monocyte# 0.34 X10^3/uL; Monocyte% 6.9 % (0-10); NRBC Flagged by Analyzer 0 % (0-5); Neutrophil # 3.18 X10^3/uL (2.7-7.7); Neutrophil % 64.8 % (47-70); Platelet Count 311 K/mm3 (150-450); RBC Distribution Width CV 11.9 % (11.6-14.6); Red Blood Count 3.85 M/mm3 (4.2-5.4); White Blood Count 4.9 K/mm3 (4.4-11.0)
[2019-05-08 14:28] LABS: ALB/GLOB Ratio 1.1 RATIO (0.9-2.4); AST(SGOT) 23 U/L (15-37); Alanine Aminotransfer ALT/SGPT 23 U/L (13-56); Albumin, Serum 3.7 g/dL (3.2-5.0); Alkaline Phosphatase 47 U/L (45-117); Anion Gap 6 (5-15); BUN 15 mg/dL (7-18); Chloride 101 mmol/L (98-107); EST Glomerular Filtration Rate 58 mL/min (>60); Est Glom Filt Rate - Afr Amer 71 mL/min (>60); Globulin 3.3 g/dL (2.2-4.2); Glucose 88 mg/dL (74-106); Potassium 3.6 mmol/L (3.5-5.1); Sodium Level 137 mmol/L (136-145)
== END ==
PROVIDERS: Family Provider Family Medicine; PCP Family Medicine; Referring Provider Internal Medicine Rheumatology; Visit Provider Internal Medicine Rheumatology
DX: M06.4 Inflammatory polyarthropathy (principal); R76.8 Other specified abnormal immunological findings in serum; M79.7 Fibromyalgia; M25.511 Pain in right shoulder; G43.909 Migraine, unspecified, not intractable, without status migrainosus; I10 Essential (primary) hypertension; F32.89 Other specified depressive episodes; M81.0 Age-related osteoporosis without current pathological fracture; N39.3 Stress incontinence (female) (male)
CPT/HCPCS: 36415; 80053; 85025

== ENCOUNTER → 2019-05-12 09:26 | Outpatient (CLI) | payer MEDICARE, OTHER, SELFPAY ==
[2018-11-03 10:43] VITALS: BMI 32.2
[2019-05-12 12:33] LABS: Cholesterol 182 mg/dL (200); High Density Lipoprotein 57 mg/dL; Triglycerides 114 mg/dL; Very Low Density Lipoprotein 23 mg/dL (5-40)
== END ==
PROVIDERS: Family Provider Family Medicine; PCP Family Medicine; Referring Provider Family Medicine; Visit Provider Family Medicine
DX: I10 Essential (primary) hypertension (principal)
CPT/HCPCS: 36415; 80061

== ENCOUNTER → 2019-06-12 08:28 | Outpatient (CLI) | payer MEDICARE, OTHER, SELFPAY ==
[2018-11-03 10:43] VITALS: BMI 32.2
[2019-06-12 10:23] LABS: Absolute Lymphocyte Count 1.14 X10^3/uL (0.83-4.51); Absolute Neutrophil Count 3.4 X10^3/uL (2.0-7.7); Basophil# 0.05 X10^3/uL; Eosinophils% 3.8 % (0-5); Hematocrit 38.8 % (37-47); Hemoglobin 12.3 g/dL (12.0-15.0); Lymphocyte # 1.14 X10^3/ul (4.0); Lymphocyte % 21.7 % (19-41); Mean Corp Hgb Conc 31.7 g/dL (32-36); Mean Corpuscular Volume 97.7 fL (81-99); Mean Platelet Vol. 11.2 fl (6.2-12.0); Monocyte# 0.42 X10^3/uL; NRBC Flagged by Analyzer 0 % (0-5); Neutrophil # 3.42 X10^3/uL (2.7-7.7); Neutrophil % 65.1 % (47-70); Platelet Count 276 K/mm3 (150-450); RBC Distribution Width CV 11.9 % (11.6-14.6); RBC Distribution Width SD 42.8 fl (35.1-43.9); Red Blood Count 3.97 M/mm3 (4.2-5.4); White Blood Count 5.3 K/mm3 (4.4-11.0)
[2019-06-12 10:40] LABS: ALB/GLOB Ratio 1.1 RATIO (0.9-2.4); AST(SGOT) 23 U/L (15-37); Alanine Aminotransfer ALT/SGPT 22 U/L (13-56); Albumin, Serum 3.7 g/dL (3.2-5.0); Alkaline Phosphatase 60 U/L (45-117); Anion Gap 6 (5-15); BUN 15 mg/dL (7-18); BUN/Creat Ratio 13.9 RATIO (10-20); Calcium,Total 8.7 mg/dL (8.5-10.1); Chloride 107 mmol/L (98-107); Creatinine, Serum 1.08 mg/dL (0.55-1.02); EST Glomerular Filtration Rate 53 mL/min (>60); Est Glom Filt Rate - Afr Amer 65 mL/min (>60); Globulin 3.4 g/dL (2.2-4.2); Glucose 98 mg/dL (74-106); Potassium 3.7 mmol/L (3.5-5.1); Protein, Total 7.1 g/dL (6.4-8.2); Sodium Level 141 mmol/L (136-145)
== END ==
PROVIDERS: Family Provider Family Medicine; PCP Family Medicine; Referring Provider Internal Medicine Rheumatology; Visit Provider Internal Medicine Rheumatology
DX: M06.4 Inflammatory polyarthropathy (principal); R76.8 Other specified abnormal immunological findings in serum; M79.7 Fibromyalgia; M25.511 Pain in right shoulder; G43.909 Migraine, unspecified, not intractable, without status migrainosus; I10 Essential (primary) hypertension; F32.89 Other specified depressive episodes; M81.0 Age-related osteoporosis without current pathological fracture; N39.3 Stress incontinence (female) (male)
CPT/HCPCS: 36415; 80053; 85025

== ENCOUNTER → 2019-08-14 11:28 | Outpatient (CLI) | payer MEDICARE, OTHER, SELFPAY ==
[2018-11-03 10:43] VITALS: BMI 32.2
[2019-08-14 13:49] LABS: Absolute Lymphocyte Count 0.85 X10^3/uL (0.83-4.51); Absolute Neutrophil Count 9.6 X10^3/uL (2.0-7.7); Basophil# 0.01 X10^3/uL; Basophil% 0.1 % (0-1); Hemoglobin 11.8 g/dL (12.0-15.0); Lymphocyte # 0.85 X10^3/ul (4.0); Lymphocyte % 7.6 % (19-41); Mean Corp Hgb Conc 32.8 g/dL (32-36); Mean Corpuscular Hgb 32.1 pg (27.0-32.0); Mean Corpuscular Volume 97.8 fL (81-99); Mean Platelet Vol. 9.9 fl (6.2-12.0); Monocyte# 0.61 X10^3/uL; Monocyte% 5.5 % (0-10); NRBC Flagged by Analyzer 0 % (0-5); Neutrophil % 86.2 % (47-70); Platelet Count 388 K/mm3 (150-450); RBC Distribution Width CV 13.2 % (11.6-14.6); RBC Distribution Width SD 47.1 fl (35.1-43.9); Red Blood Count 3.68 M/mm3 (4.2-5.4); White Blood Count 11.1 K/mm3 (4.4-11.0)
[2019-08-14 14:05] LABS: ALB/GLOB Ratio 0.9 RATIO (0.9-2.4); AST(SGOT) 23 U/L (15-37); Alanine Aminotransfer ALT/SGPT 34 U/L (13-56); Albumin, Serum 3.4 g/dL (3.2-5.0); Alkaline Phosphatase 52 U/L (45-117); Anion Gap 5 (5-15); BUN 16 mg/dL (7-18); BUN/Creat Ratio 17.1 RATIO (10-20); Chloride 99 mmol/L (98-107); Creatinine, Serum 0.93 mg/dL (0.55-1.02); EST Glomerular Filtration Rate 63 mL/min (>60); Est Glom Filt Rate - Afr Amer 76 mL/min (>60); Globulin 3.9 g/dL (2.2-4.2); Glucose 89 mg/dL (74-106); Potassium 3.6 mmol/L (3.5-5.1); Protein, Total 7.3 g/dL (6.4-8.2); Sodium Level 132 mmol/L (136-145)
== END ==
PROVIDERS: PCP Family Medicine; Referring Provider Internal Medicine Rheumatology; Visit Provider Internal Medicine Rheumatology
DX: M06.4 Inflammatory polyarthropathy (principal); R76.8 Other specified abnormal immunological findings in serum; M79.7 Fibromyalgia; M25.511 Pain in right shoulder; G43.909 Migraine, unspecified, not intractable, without status migrainosus; I10 Essential (primary) hypertension; F32.9 Major depressive disorder, single episode, unspecified; M81.0 Age-related osteoporosis without current pathological fracture; N39.3 Stress incontinence (female) (male)
CPT/HCPCS: 36415; 80053; 85025

== ENCOUNTER → 2019-10-10 12:15 | Outpatient (CLI) | payer MEDICARE, OTHER, SELFPAY ==
[2018-11-03 10:43] VITALS: BMI 32.2
[2019-10-10 15:14] LABS: Absolute Lymphocyte Count 1.17 X10^3/uL (0.83-4.51); Absolute Neutrophil Count 3.8 X10^3/uL (2.0-7.7); Basophil# 0.05 X10^3/uL; Basophil% 0.9 % (0-1); Eosinophil# 0.11 X10^3/uL; Hematocrit 36.4 % (37-47); Hemoglobin 11.5 g/dL (12.0-15.0); Lymphocyte # 1.17 X10^3/ul (4.0); Lymphocyte % 21.2 % (19-41); Mean Corp Hgb Conc 31.6 g/dL (32-36); Mean Corpuscular Hgb 32.4 pg (27.0-32.0); Mean Corpuscular Volume 102.5 fL (81-99); Mean Platelet Vol. 11.3 fl (6.2-12.0); Monocyte# 0.38 X10^3/uL; Monocyte% 6.9 % (0-10); NRBC Flagged by Analyzer 0 % (0-5); Neutrophil # 3.78 X10^3/uL (2.7-7.7); Neutrophil % 68.6 % (47-70); Platelet Count 337 K/mm3 (150-450); RBC Distribution Width CV 13.1 % (11.6-14.6); RBC Distribution Width SD 48.8 fl (35.1-43.9); Red Blood Count 3.55 M/mm3 (4.2-5.4); White Blood Count 5.5 K/mm3 (4.4-11.0)
[2019-10-10 15:32] LABS: AST(SGOT) 29 U/L (15-37); Alanine Aminotransfer ALT/SGPT 24 U/L (13-56); Albumin, Serum 3.5 g/dL (3.2-5.0); Alkaline Phosphatase 45 U/L (45-117); Anion Gap 7 (5-15); BUN 13 mg/dL (7-18); BUN/Creat Ratio 12.1 RATIO (10-20); Chloride 103 mmol/L (98-107); Creatinine, Serum 1.07 mg/dL (0.55-1.02); EST Glomerular Filtration Rate 54 mL/min (>60); Est Glom Filt Rate - Afr Amer 65 mL/min (>60); Globulin 3.4 g/dL (2.2-4.2); Glucose 99 mg/dL (74-106); Potassium 3.5 mmol/L (3.5-5.1); Protein, Total 6.9 g/dL (6.4-8.2); Sodium Level 140 mmol/L (136-145)
== END ==
PROVIDERS: PCP Family Medicine; Referring Provider Internal Medicine Rheumatology; Visit Provider Internal Medicine Rheumatology
DX: M06.4 Inflammatory polyarthropathy (principal); R76.8 Other specified abnormal immunological findings in serum; M79.7 Fibromyalgia; G43.909 Migraine, unspecified, not intractable, without status migrainosus; I10 Essential (primary) hypertension; F32.89 Other specified depressive episodes; M81.0 Age-related osteoporosis without current pathological fracture; N39.3 Stress incontinence (female) (male); Z79.899 Other long term (current) drug therapy
CPT/HCPCS: 36415; 80053; 85025

== ENCOUNTER → 2020-01-26 10:57 | Outpatient (CLI) | payer MEDICARE, OTHER, SELFPAY ==
[2018-11-03 10:43] VITALS: BMI 32.2
[2020-01-26 15:20] LABS: Absolute Lymphocyte Count 0.94 X10^3/uL (0.83-4.51); Absolute Neutrophil Count 3.5 X10^3/uL (2.0-7.7); Basophil# 0.05 X10^3/uL; Eosinophil# 0.06 X10^3/uL; Eosinophils% 1.2 % (0-5); Hematocrit 35.1 % (37-47); Lymphocyte # 0.94 X10^3/ul (4.0); Lymphocyte % 18.2 % (19-41); Mean Corp Hgb Conc 31.3 g/dL (32-36); Mean Corpuscular Hgb 32.7 pg (27.0-32.0); Mean Corpuscular Volume 104.5 fL (81-99); Mean Platelet Vol. 10.4 fl (6.2-12.0); Monocyte# 0.55 X10^3/uL; Monocyte% 10.7 % (0-10); NRBC Flagged by Analyzer 0 % (0-5); Neutrophil # 3.54 X10^3/uL (2.7-7.7); Neutrophil % 68.5 % (47-70); Platelet Count 333 K/mm3 (150-450); RBC Distribution Width CV 13.4 % (11.6-14.6); RBC Distribution Width SD 50.4 fl (35.1-43.9); Red Blood Count 3.36 M/mm3 (4.2-5.4); White Blood Count 5.2 K/mm3 (4.4-11.0)
[2020-01-26 15:44] LABS: ALB/GLOB Ratio 1.1 RATIO (0.9-2.4); AST(SGOT) 22 U/L (15-37); Alanine Aminotransfer ALT/SGPT 24 U/L (13-56); Albumin, Serum 3.3 g/dL (3.2-5.0); Alkaline Phosphatase 44 U/L (45-117); Anion Gap 5 (5-15); BUN 12 mg/dL (7-18); BUN/Creat Ratio 15.2 RATIO (10-20); Calcium,Total 8.6 mg/dL (8.5-10.1); Chloride 105 mmol/L (98-107); Creatinine, Serum 0.79 mg/dL (0.55-1.02); EST Glomerular Filtration Rate 76 mL/min (>60); Est Glom Filt Rate - Afr Amer 93 mL/min (>60); Globulin 3.1 g/dL (2.2-4.2); Glucose 83 mg/dL (74-106); Potassium 3.7 mmol/L (3.5-5.1); Protein, Total 6.4 g/dL (6.4-8.2); Sodium Level 139 mmol/L (136-145)
== END ==
PROVIDERS: PCP Family Medicine; Referring Provider Internal Medicine Rheumatology; Visit Provider Internal Medicine Rheumatology
DX: M06.4 Inflammatory polyarthropathy (principal); Z79.899 Other long term (current) drug therapy; R76.8 Other specified abnormal immunological findings in serum; M79.7 Fibromyalgia; G43.909 Migraine, unspecified, not intractable, without status migrainosus; I10 Essential (primary) hypertension; F32.89 Other specified depressive episodes; M81.0 Age-related osteoporosis without current pathological fracture; N39.3 Stress incontinence (female) (male)
CPT/HCPCS: 36415; 80053; 85025

== ENCOUNTER → 2020-03-19 12:30 | Outpatient (CLI) | payer MEDICARE, OTHER, SELFPAY ==
[2018-11-03 10:43] VITALS: BMI 32.2
--- NOTE | 2020-03-19 12:32 | BI_ITS ---
MAMMOGRAPHY - BILATERAL SCREENING REASON FOR EXAM: Female, 69 years old. Routine annual screening examination. PERTINENT HISTORY: Non-contributory. TECHNIQUE: Digital bilateral breast sarath (3D mammographic acquisition) in the CC and MLO projections. 2-D mediolateral oblique (MLO) and craniocaudad (CC) views of both breasts were obtained. CAD: Full Field Digital Mammography with Computer Added Detection was performed. COMPARISON: Comparison is made with prior examination dated 03/16/2019 and 02/28/2018. FINDINGS: Breast Composition: There are scattered areas of fibroglandular density. There are no dominant masses or suspicious calcifications. Stable benign appearing bilateral axillary lymph nodes. No other significant abnormalities are identified. There has been no significant change since the prior study. BI/SCREEN MAMM (CAD) W/SARATH BILAT IMPRESSION: Stable bilateral screening mammogram. Yearly follow-up mammogram recommended. (A) ASSESSMENT CATEGORY: BIRADS Category 2: Benign. A letter regarding these results will be sent to the patient by the facility within 30 days. Approximately 10% of breast cancers are not detected by mammography. A normal mammogram should not delay biopsy of a clinically suspicious abnormality. [id number] Electronically Signed: Manfred Aaron, at 14:08 EDT , Service support ,
--- NOTE | 2020-03-19 12:36 | BD_ITS ---
STUDY: DUAL ENERGY X-RAY ABSORPTIOMETRY / DXA REASON FOR EXAM: Female, 69 years old. BACTERIOLOGIST PHARMACEUTICAL -- TAKES 1500MG CALCIUM + MULTIVITAMIN -- DOES NO EXERCISE -- HX OF R HIP REPLACEMENT -- SILKE OF 1.5 INCHES TECHNIQUE: Bone Mineral Density (BMD) measurements of lumbar spine and left hip were obtained. COMPARISON: Comparison is made with prior study dated 12/29/2011. FINDINGS: Lumbar Spine (L1-L4): g/cm2 (1.306) / T-score (1.1) / Z-score (2.8) Findings are suggestive of normal bone density with a low fracture risk. Increased thoracic kyphosis. Left Femur Total: g/cm2 (0.904) / T-score (-0.8) / Z-score (0.6) Left Femoral Neck: g/cm2 (0.907) / T-score (-0.9) / Z-score (0.7) The T-Scores on the most recent prior examination were: Lumbar Spine (L1-L4): There has been improvement of bone density since the previous examination. Left Femur Total: which represents an improvement of 4.6%. BD/Dexa Bone Density Study IMPRESSION: The patient is considered normal as outlined below according to World Donovan Organization (WHO) criteria with a low fracture risk. There has been improvement of bone density since the previous examination. Reference Information: The T-score is the number of standard deviations above or below the standard which is normal for young adults at their peak bone mineral density. The World Health Organization (WHO) interprets the T-scores as follows: Above -1 Normal bone density Between -1 and -2.5 Osteopenia Equal to / or below -2.5 Osteoporosis As a practical clinical guideline, osteopenia may be graded as follows: Mild -1 through -1.5 Moderate -1.6 through -2.0 Severe -2.1 through -2.4 The Z-score is the number of standard deviations above or below age-matched controls. A Z-score of less than -1.5 would be considered abnormal. References: 1. NIH Osteoporosis and Related Bone Diseases http://www.osteo.org 2. International Society for Clinical Densitometry http://www.iscd.org 3. National Osteoporosis Foundation http://www.nof.org Electronically Signed: Manfred Aaron, at 15:51 EDT , Service support ,
== END ==
PROVIDERS: PCP Family Medicine; Referring Provider Family Medicine; Visit Provider Family Medicine
DX: Z12.31 Encounter for screening mammogram for malignant neoplasm of breast (principal); M81.0 Age-related osteoporosis without current pathological fracture
CPT/HCPCS: 77063; 77067; 77080

== ENCOUNTER → 2020-04-10 11:24 | Outpatient (CLI) | payer MEDICARE, OTHER, SELFPAY ==
[2018-11-03 10:43] VITALS: BMI 32.2
[2020-04-10 15:57] LABS: Absolute Lymphocyte Count 1.05 X10^3/uL (0.83-4.51); Absolute Neutrophil Count 2.8 X10^3/uL (2.0-7.7); Basophil# 0.06 X10^3/uL; Basophil% 1.4 % (0-1); Eosinophil# 0.06 X10^3/uL; Eosinophils% 1.4 % (0-5); Hematocrit 34.5 % (37-47); Hemoglobin 11.3 g/dL (12.0-15.0); Lymphocyte # 1.05 X10^3/ul (4.0); Lymphocyte % 23.9 % (19-41); Mean Corp Hgb Conc 32.8 g/dL (32-36); Mean Corpuscular Hgb 32.9 pg (27.0-32.0); Mean Corpuscular Volume 100.6 fL (81-99); Mean Platelet Vol. 10.4 fl (6.2-12.0); Monocyte# 0.43 X10^3/uL; Monocyte% 9.8 % (0-10); NRBC Flagged by Analyzer 0 % (0-5); Neutrophil # 2.78 X10^3/uL (2.7-7.7); Platelet Count 340 K/mm3 (150-450); RBC Distribution Width CV 12.5 % (11.6-14.6); RBC Distribution Width SD 45.9 fl (35.1-43.9); Red Blood Count 3.43 M/mm3 (4.2-5.4); White Blood Count 4.4 K/mm3 (4.4-11.0)
[2020-04-10 16:14] LABS: AST(SGOT) 25 U/L (15-37); Alanine Aminotransfer ALT/SGPT 27 U/L (13-56); Albumin, Serum 3.4 g/dL (3.2-5.0); Alkaline Phosphatase 52 U/L (45-117); Anion Gap 3 (5-15); BUN 10 mg/dL (7-18); BUN/Creat Ratio 14.3 RATIO (10-20); Calcium,Total 8.9 mg/dL (8.5-10.1); Chloride 99 mmol/L (98-107); EST Glomerular Filtration Rate 88 mL/min (>60); Est Glom Filt Rate - Afr Amer 106 mL/min (>60); Globulin 3.3 g/dL (2.2-4.2); Glucose 77 mg/dL (74-106); Potassium 3.6 mmol/L (3.5-5.1); Protein, Total 6.7 g/dL (6.4-8.2); Sodium Level 135 mmol/L (136-145)
== END ==
PROVIDERS: PCP Family Medicine; Referring Provider Internal Medicine Rheumatology; Visit Provider Internal Medicine Rheumatology
DX: M06.4 Inflammatory polyarthropathy (principal); Z79.899 Other long term (current) drug therapy; R76.8 Other specified abnormal immunological findings in serum; M79.7 Fibromyalgia; G43.909 Migraine, unspecified, not intractable, without status migrainosus; I10 Essential (primary) hypertension; F32.89 Other specified depressive episodes; M81.0 Age-related osteoporosis without current pathological fracture; N39.3 Stress incontinence (female) (male)
CPT/HCPCS: 36415; 80053; 85025

== ENCOUNTER → 2020-05-15 14:12 | Outpatient (CLI) | payer MEDICARE, OTHER, SELFPAY ==
[2018-11-03 10:43] VITALS: BMI 32.2
--- NOTE | 2020-05-15 14:25 | RAD_ITS ---
STUDY: X-RAY CHEST REASON FOR EXAM: Female, 70 years old. Chest heaviness, dyspnea on exertion, patient had COVID in December TECHNIQUE: PA and lateral views of the chest. COMPARISON: 02/08/2018 FINDINGS: There are a few bibasilar nonspecific opacities. Normal size heart. Normal mediastinum and roderick. Normal visualized pulmonary arteries. Normal visualized aortic arch and descending thoracic aorta. Normal visualized thoracic spine. There is degenerative osteoarthritis of the bilateral shoulders. There is no demonstrated abnormality of the visualized soft tissue structures of the upper abdomen. RAD/Chest PA and Lateral IMPRESSION: Bibasilar opacities may be secondary to underlying atelectasis and/or infectious processes. Electronically Signed: Fabi Montero MD at 15:21 EDT Tel , Service support ,
[2020-05-15 18:02] LABS: Absolute Lymphocyte Count 1.32 X10^3/uL (0.83-4.51); Absolute Neutrophil Count 3.5 X10^3/uL (2.0-7.7); Basophil# 0.06 X10^3/uL; Basophil% 1.1 % (0-1); Eosinophil# 0.08 X10^3/uL; Eosinophils% 1.4 % (0-5); Hematocrit 36.5 % (37-47); Hemoglobin 11.7 g/dL (12.0-15.0); Lymphocyte # 1.32 X10^3/ul (4.0); Lymphocyte % 23.9 % (19-41); Mean Corp Hgb Conc 32.1 g/dL (32-36); Mean Corpuscular Hgb 32.4 pg (27.0-32.0); Mean Corpuscular Volume 101.1 fL (81-99); Mean Platelet Vol. 10.2 fl (6.2-12.0); Monocyte# 0.51 X10^3/uL; Monocyte% 9.2 % (0-10); NRBC Flagged by Analyzer 0 % (0-5); Neutrophil # 3.54 X10^3/uL (2.7-7.7); Platelet Count 329 K/mm3 (150-450); RBC Distribution Width CV 12.2 % (11.6-14.6); RBC Distribution Width SD 45.2 fl (35.1-43.9); Red Blood Count 3.61 M/mm3 (4.2-5.4); White Blood Count 5.5 K/mm3 (4.4-11.0)
[2020-05-15 18:28] LABS: D-Dimer Quantitative (DVT/PE) 0.45 FEU/ug/m (0.27-0.49)
== END ==
PROVIDERS: PCP Family Medicine; Referring Provider Family Medicine; Visit Provider Family Medicine
DX: R07.9 Chest pain, unspecified (principal); R06.00 Dyspnea, unspecified
CPT/HCPCS: 36415; 71046; 84484; 85025; 85379

== ENCOUNTER → 2020-06-26 13:39 | Outpatient (CLI) | payer MEDICARE, OTHER, SELFPAY ==
[2018-11-03 10:43] VITALS: BMI 32.2
[2020-06-26 15:25] LABS: Absolute Lymphocyte Count 1.38 X10^3/uL (0.83-4.51); Basophil# 0.05 X10^3/uL; Eosinophil# 0.08 X10^3/uL; Eosinophils% 1.6 % (0-5); Hematocrit 36.9 % (37-47); Hemoglobin 11.8 g/dL (12.0-15.0); Lymphocyte # 1.38 X10^3/ul (4.0); Lymphocyte % 27.7 % (19-41); Mean Corpuscular Hgb 32.1 pg (27.0-32.0); Mean Corpuscular Volume 100.3 fL (81-99); Mean Platelet Vol. 10.7 fl (6.2-12.0); Monocyte# 0.43 X10^3/uL; Monocyte% 8.6 % (0-10); NRBC Flagged by Analyzer 0 % (0-5); Neutrophil # 3.03 X10^3/uL (2.7-7.7); Neutrophil % 60.7 % (47-70); Platelet Count 377 K/mm3 (150-450); RBC Distribution Width CV 12.6 % (11.6-14.6); Red Blood Count 3.68 M/mm3 (4.2-5.4)
[2020-06-26 15:44] LABS: ALB/GLOB Ratio 1.1 RATIO (0.9-2.4); AST(SGOT) 30 U/L (15-37); Alanine Aminotransfer ALT/SGPT 31 U/L (13-56); Albumin, Serum 3.7 g/dL (3.2-5.0); Alkaline Phosphatase 45 U/L (45-117); Anion Gap 4 (5-15); BUN 9 mg/dL (7-18); BUN/Creat Ratio 9.4 RATIO (10-20); Calcium,Total 9.4 mg/dL (8.5-10.1); Chloride 101 mmol/L (98-107); Creatinine, Serum 0.96 mg/dL (0.55-1.02); EST Glomerular Filtration Rate 61 mL/min (>60); Est Glom Filt Rate - Afr Amer 74 mL/min (>60); Globulin 3.3 g/dL (2.2-4.2); Glucose 110 mg/dL (74-106); Potassium 3.4 mmol/L (3.5-5.1); Sodium Level 137 mmol/L (136-145)
== END ==
PROVIDERS: PCP Family Medicine; Referring Provider Internal Medicine Rheumatology; Visit Provider Internal Medicine Rheumatology
DX: M06.4 Inflammatory polyarthropathy (principal); Z79.899 Other long term (current) drug therapy; R76.8 Other specified abnormal immunological findings in serum; M79.7 Fibromyalgia; G43.909 Migraine, unspecified, not intractable, without status migrainosus; I10 Essential (primary) hypertension; F32.89 Other specified depressive episodes; M81.0 Age-related osteoporosis without current pathological fracture; N39.3 Stress incontinence (female) (male)
CPT/HCPCS: 36415; 80053; 85025

== ENCOUNTER → 2020-09-04 09:44 | Outpatient (CLI) | payer MEDICARE, OTHER, SELFPAY ==
[2018-11-03 10:43] VITALS: BMI 32.2
[2020-09-04 12:57] LABS: Absolute Lymphocyte Count 0.97 X10^3/uL (0.83-4.51); Absolute Neutrophil Count 2.8 X10^3/uL (2.0-7.7); Basophil# 0.03 X10^3/uL; Basophil% 0.7 % (0-1); Eosinophil# 0.07 X10^3/uL; Eosinophils% 1.7 % (0-5); Hematocrit 35.7 % (37-47); Hemoglobin 11.6 g/dL (12.0-15.0); Lymphocyte # 0.97 X10^3/ul (4.0); Lymphocyte % 22.9 % (19-41); Mean Corp Hgb Conc 32.5 g/dL (32-36); Mean Corpuscular Hgb 32.6 pg (27.0-32.0); Mean Corpuscular Volume 100.3 fL (81-99); Mean Platelet Vol. 10.6 fl (6.2-12.0); Monocyte# 0.36 X10^3/uL; Monocyte% 8.5 % (0-10); NRBC Flagged by Analyzer 0 % (0-5); Neutrophil # 2.78 X10^3/uL (2.7-7.7); Neutrophil % 65.7 % (47-70); Platelet Count 309 K/mm3 (150-450); RBC Distribution Width CV 12.5 % (11.6-14.6); RBC Distribution Width SD 45.4 fl (35.1-43.9); Red Blood Count 3.56 M/mm3 (4.2-5.4); White Blood Count 4.2 K/mm3 (4.4-11.0)
[2020-09-04 13:20] LABS: ALB/GLOB Ratio 1.2 RATIO (0.9-2.4); AST(SGOT) 27 U/L (15-37); Alanine Aminotransfer ALT/SGPT 31 U/L (13-56); Albumin, Serum 3.8 g/dL (3.2-5.0); Alkaline Phosphatase 55 U/L (45-117); Anion Gap 3 (5-15); BUN 12 mg/dL (7-18); Calcium,Total 9.1 mg/dL (8.5-10.1); Chloride 104 mmol/L (98-107); EST Glomerular Filtration Rate 75 mL/min (>60); Est Glom Filt Rate - Afr Amer 91 mL/min (>60); Globulin 3.1 g/dL (2.2-4.2); Glucose 99 mg/dL (74-106); Potassium 3.6 mmol/L (3.5-5.1); Protein, Total 6.9 g/dL (6.4-8.2); Sodium Level 139 mmol/L (136-145)
== END ==
PROVIDERS: PCP Family Medicine; Referring Provider Internal Medicine Rheumatology; Visit Provider Internal Medicine Rheumatology
DX: M06.4 Inflammatory polyarthropathy (principal); Z79.899 Other long term (current) drug therapy; R76.8 Other specified abnormal immunological findings in serum; M79.7 Fibromyalgia; G43.909 Migraine, unspecified, not intractable, without status migrainosus; I10 Essential (primary) hypertension; F32.89 Other specified depressive episodes; M81.0 Age-related osteoporosis without current pathological fracture; N39.3 Stress incontinence (female) (male)
CPT/HCPCS: 36415; 80053; 85025

== ENCOUNTER 2020-09-12 11:30 | Outpatient (RCR) | payer MEDICARE, OTHER, SELFPAY ==
[2018-11-03 10:43] VITALS: BMI 32.2
--- NOTE | 2020-09-05 12:08 | HP.PTEVAL ---
Patient's Visit Information YADIRA PEREZ is a 70 year old F referred to Physical Therapy by Dr. Carl Bourgeois DO with a diagnosis of vertigo. Date of Evaluation: 09/05/20 Physical Therapist: Reggie Hawley, KATHY, OCS, CSCS - Visit Plan Frequency: 1-2x /Week Duration: 4-6 Weeks Plan: 1-2x/week x2-4 weeks for positional monitorring, check oculomotor for appropraiteness of adaptation ex adn balance as needed. Next session, check positional and balance if better adn schedule frequency - Subjective Pt has been having problems with balance, falling. Has had vertigo for last couple years daily. daily spinning for a minute or two. Moving too quick can bring it on. Fell one time in shower and tried to get out got dizzy and fell into tub. Fell last Wednesday cleaning litter box bending over adn fell down without getting dizzy. Can get spinning 3-4x/day. Has had ears tested adn had brain scanned and all was OK. Does not use cane or walker but has both. Uses the cane if has to walk alot.. No pain. Has tingling in feet but not sure why intermittent in am before getting out of bed. Sleeping is OK. Has FM and needs tylenol. Has not had dizzyness in bed. Lives with , does all basic ADLs. Does the shopping. Has no hobbies. No exercises. Does not work outside of home. Has care home neck soreness. Sees chiropractor.. Monthly assage. - Objective Walks I, trasnfers bed and chair I bt slow and weak in core for rolling. Steps are reciprocal with rail. cervical aROM is slow but painfree today and functional. - B hallpike vidal. + R roll test for slight geotropic nystagmus, improved and gone with BBQ roll. - Balance Scores Functional Gait Assessment Score: 23 % Disability: 23.3400 - Goals Goal 1:: Pt vertigo abolished Goal Time Frame: 2-4 Weeks Goal 2:: Balance FGA 25/30 Goal Time Frame: 2-4 Weeks Goal 3:: Pt feel 75% better overall. Goal Time Frame: 2-4 Weeks - Rehabilitation Potential Physical Therapy Diagnosis: possible BPPV, vertuigo adn imbalance. Rehabilitation Potential: Fair - Anticipated Interventions Patient/Client Instruction: Educate patient on: Condition, Plan of Care For the Purpose of:: To increase tolerance to activity/condition/position, To improve balance, To improve safety with gait Therapeutic Exercise to Include: Balance training Comment: postional, adaptation For the Purpose of:: To increase tolerance to activity/condition/position, To improve safety with gait, To improve safety Thank you for the opportunity to evaluate your patient. For Medicare and Medicare HMO plans, please review the plan of care and approve it. It will need to be FAXED BACK to us at [phone] for Medicare purposes. For Medicare only, by signing this I certify the plan of care. Please let me know if there are questions or concerns regarding this plan of care. Physician Signature: Date:
--- NOTE | 2020-10-29 15:35 | HP.PT.NRP ---
YADIRA PEREZ was seen in my office for initial evaluation on 09/05/20. The following Plan of Care was established for this patient: Initial Frequency: 1-2x /Week Initial Duration: 4-6 Weeks Patient/Client Instruction: Educate patient on: Condition, Plan of Care For the Purpose of:: To increase tolerance to activity/condition/position, To improve balance, To improve safety with gait Therapeutic Exercise to Include: Balance training For the Purpose of:: To increase tolerance to activity/condition/position, To improve safety with gait, To improve safety This patient was last seen in our office 09/12/20. Pertinent comments regarding their Physical therapy will appear below: Pt seen two visits of POC. was to f/u the following week but cancelled and neglected to reschedule. at this point, it has been over 6 weeks adn I will discontinue due to non attendance. At this point I will be discontinuing this patient from physical therapy. I would be happy to see this patient again in the future if found appropriate by the physician. Thank you! Reggie Hawley, DPT, OCS, CSCS
== END 2020-09-12 19:00 | disposition home or self-care (01) ==
LOC: PT 11:30
PROVIDERS: PCP Family Medicine; Referring Provider Family Medicine; Visit Provider Family Medicine
DX: R42 Dizziness and giddiness (principal)
CPT/HCPCS: 97161; 97530

== ENCOUNTER → 2020-11-18 10:14 | Outpatient (CLI) | payer MEDICARE, OTHER, SELFPAY ==
[2018-11-03 10:43] VITALS: BMI 32.2
[2020-11-18 12:20] LABS: Absolute Neutrophil Count 2.9 X10^3/uL (2.0-7.7); Basophil# 0.06 X10^3/uL; Basophil% 1.3 % (0-1); Eosinophil# 0.07 X10^3/uL; Eosinophils% 1.6 % (0-5); Hematocrit 36.8 % (37-47); Hemoglobin 12.1 g/dL (12.0-15.0); Lymphocyte % 24.5 % (19-41); Mean Corp Hgb Conc 32.9 g/dL (32-36); Mean Corpuscular Hgb 32.4 pg (27.0-32.0); Mean Corpuscular Volume 98.7 fL (81-99); Mean Platelet Vol. 10.8 fl (6.2-12.0); Monocyte# 0.34 X10^3/uL; Monocyte% 7.6 % (0-10); NRBC Flagged by Analyzer 0 % (0-5); Neutrophil # 2.91 X10^3/uL (2.7-7.7); Neutrophil % 64.8 % (47-70); Platelet Count 307 K/mm3 (150-450); RBC Distribution Width CV 12.4 % (11.6-14.6); RBC Distribution Width SD 44.5 fl (35.1-43.9); Red Blood Count 3.73 M/mm3 (4.2-5.4); White Blood Count 4.5 K/mm3 (4.4-11.0)
[2020-11-18 12:36] LABS: ALB/GLOB Ratio 1.1 RATIO (0.9-2.4); AST(SGOT) 24 U/L (15-37); Alanine Aminotransfer ALT/SGPT 23 U/L (13-56); Albumin, Serum 3.6 g/dL (3.2-5.0); Alkaline Phosphatase 59 U/L (45-117); Anion Gap 7 (5-15); BUN 14 mg/dL (7-18); BUN/Creat Ratio 16.2 RATIO (10-20); Chloride 101 mmol/L (98-107); Creatinine, Serum 0.86 mg/dL (0.55-1.02); EST Glomerular Filtration Rate 69 mL/min (>60); Est Glom Filt Rate - Afr Amer 83 mL/min (>60); Globulin 3.2 g/dL (2.2-4.2); Glucose 105 mg/dL (74-106); Potassium 3.4 mmol/L (3.5-5.1); Protein, Total 6.8 g/dL (6.4-8.2); Sodium Level 139 mmol/L (136-145)
== END ==
PROVIDERS: PCP Family Medicine; Referring Provider Internal Medicine Rheumatology; Visit Provider Internal Medicine Rheumatology
DX: M06.4 Inflammatory polyarthropathy (principal); Z79.899 Other long term (current) drug therapy; R76.8 Other specified abnormal immunological findings in serum; M79.7 Fibromyalgia; G43.909 Migraine, unspecified, not intractable, without status migrainosus; I10 Essential (primary) hypertension; F32.89 Other specified depressive episodes; M81.0 Age-related osteoporosis without current pathological fracture; N39.3 Stress incontinence (female) (male)
CPT/HCPCS: 36415; 80053; 85025

== ENCOUNTER 2020-11-24 10:58 | Emergency (ER) | payer MEDICARE, OTHER, SELFPAY ==
[2018-11-03 10:43] VITALS: BMI 32.2
[2020-11-24 10:59] VITALS: BP 154/81; PULSE 60; RESP 17; TEMP 36.7; O2SAT 96; BMI 28.3
--- NOTE | 2020-11-24 11:18 | RAD_ITS ---
STUDY: X-RAY - UNILATERAL RIBS ( LEFT ) WITH CHEST REASON FOR EXAM: Female, 70 years old. fall, chest pain TECHNIQUE - RIBS: 4 view(s) of the ribs. TECHNIQUE - CHEST: Single PA view of the chest. COMPARISON: 05/15/2020 FINDINGS - RIBS: Acute fracture the lateral left fifth rib. FINDINGS - CHEST: The lungs are clear and expanded. There is no demonstrated pleural abnormality. Normal size heart. Normal mediastinum and roderick. Normal visualized pulmonary arteries. Normal visualized aortic arch and descending thoracic aorta. Normal visualized thoracic spine. Normal visualized ribs, clavicles, and shoulders. There is no demonstrated abnormality of the visualized soft tissue structures of the upper abdomen. RAD/Ribs Uni Min 3V w/PA Chest IMPRESSION: RIBS: Acute fracture the lateral left fifth rib CHEST: No pneumothorax or hemothorax. Electronically Signed: Jim Soriano MD at 13:01 EDT Tel , Service support ,
--- NOTE | 2020-11-24 11:19 | EX.ED.DYSGE1 ---
HPI History of Present Illness Chief Complaint: Fall Informant: patient and family Narrative Narrative: 70-year-old female presenting after fall. Patient states on Wednesday she was trying to put the bed skirt on her bed. Her lifted the mattress up on one side. As she was trying to straighten the bed skirt she lost her balance and fell hitting her left side on the windowsill. She did not hit her head or lose consciousness. She has a skin tear to her left arm. Last tetanus is unknown. She states occasionally her legs have been weak. This has been ongoing for several months. She has a history of vertigo which occasionally causes her to fall. She states she did not have vertigo at the time of this fall. She denies headache. Denies numbness or tingling. Denies vision or speech changes. Denies fever. Denies chest pain or shortness of breath. Denies abdominal pain, vomiting, diarrhea. Prior similar symptoms: Yes Recent Illness/Hospitalization: No [facility] Medical History (Updated 11/24/20 @ 13:[address] Valentine Andrea MD) Arthritis Carpal tunnel syndrome, right Depressive disorder Dyspnea on exertion Hot flashes Hypertension Lupus Migraine headache Osteoarthritis Osteoporosis SLE (systemic lupus erythematosus related syndrome) Stress incontinence in female Vaginal ulcer Home Medications calcium carbonate 500 mg PO TID 11/26/15 [History Last Taken Unknown] celecoxib 200 mg PO BID 11/26/15 [History Last Taken Unknown] cholecalciferol (vitamin D3) 2,000 unit PO BID 11/26/15 [History Last Taken Unknown] duloxetine 30 mg PO DAILY 11/26/15 [History Last Taken Unknown] ferrous fumarate 325 mg PO DAILY 11/26/15 [History Last Taken Unknown] hydrochlorothiazide 25 mg PO DAILY 11/26/15 [History Last Taken Unknown] ibandronate 150 mg PO Q30D 11/26/15 [History Last Taken Unknown] propranolol 40 mg PO BID 11/26/15 [History Last Taken 10/20/18 40 MG] hydrocodone-acetaminophen 1 tab PO Q6H PRN PRN 3 Days #10 tablet 11/24/20 [Rx Last Taken Unknown] Allergy/AdvReac Type Severity Reaction Status Date / Time codeine Allergy Rash Verified 11/24/20 10:58 Family History Sister Lupus Mother CVA (cerebral vascular accident) Heart disease Father Heart disease Brother Heart disease Sister Diabetes Surgical History H/O dilation and curettage H/O tubal ligation History of hernia surgery History of hip surgery History of tonsillectomy Social History (Updated 11/03/18 @ 10:50 by Margot Bridges NP, EMAIL DEPLOYMENT SPECIALIST-C) adopted: No household members: spouse housing: house number of children: 1 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 status: 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 pets and animals: Yes Smoking Status: Never smoker second hand exposure: No alcohol intake: never substance use type: does not use seatbelt use: always do you feel safe at home: Yes additional social history: - Riki BROOKS ROS ED Constitutional Constitutional ED: Denies fever(s) Eyes Eyes: Denies change in vision ENT ENT ED: Denies rhinorrhea or sore throat Cardiovascular Cardiovascular: Denies chest pain or palpitations Respiratory/Chest Respiratory/Chest: Denies cough or dyspnea Gastrointestinal Gastrointestinal: Denies abdominal pain, diarrhea, nausea or vomiting Genitourinary Genitourinary ED: Denies dysuria Musculoskeletal Musculoskeletal: Reports other Details: left rib pain ; Denies myalgias Integumentary Denies rash Neurologic Neurologic: Denies headache(s), paresthesias or weakness EXAM Physical Exam Const Vital Signs: 11/24/20 10:59 Temperature 98.1 F Temperature Source Oral Pulse Rate 60 Respiratory Rate 17 Blood Pressure 154/81 H Blood Pressure Mean 105 Pulse Ox 96 Oxygen Delivery Method Room Air Positive well nourished and well developed General Appearance ED: well developed HEENT Reports normocephalic and head/scalp atraumatic Eyes PERRL and EOMs intact bilaterally Neck supple Neck Narrative: No midline tenderness General: Negative for tenderness Chest Wall inspection of chest normal Chest Narrative: Left posterior rib tenderness with mild ecchymosis. No crepitus Resp normal respiratory effort and clear to auscultation bilaterally Cardio regular rate and regular rhythm GI non-tender and non-distended Palpation: soft; Negative for guarding or rebound tenderness present no CVA tenderness Extremity normal to inspection Extremity Narrative: Skin tear left arm. No signs of infection. Neuro oriented x3, CN's II-XII intact bilaterally and no sensory deficits noted Neuro Narrative: NIH 0 Sensorium / Orientation: alert Motor Exam: strength 5/5 throughout Psych mental status grossly normal Skin no rashes or lesions noted MDM MDM MDM Narrative Medical decision making narrative: Patient was given Adacel IM. Left rib x-ray shows acute fracture of the left lateral fifth rib. Patient was given incentive spirometer. She is given prescription for [place]. Advised to follow-up with her primary care physician. Advised return to the ED for worsening complaints. Lab Data Attestation: I reviewed the patient's lab results. Labs: Laboratory Results - last 24 hr 11/24/20 11/24/20 11:54 11:54 WBC 5.9 RBC 3.59 L Hgb 11.5 L Hct 36.1 L MCV 100.6 H MCH 32.0 MCHC 31.9 L RDW Std Deviation 45.7 H RDW Coeff of Eduardo 12.7 Plt Count 259 MPV 10.0 Immature Gran % (Auto) 0.300 Neut % (Auto) 74.2 H Lymph % (Auto) 16.2 L Rolette % (Auto) 7.8 Eos % (Auto) 1.0 Baso % (Auto) 0.5 Absolute Neuts (auto) 4.4 Absolute Lymphs (auto) 0.95 Nucleated RBC % 0 Sodium 139 Potassium 4.3 Chloride 101 Carbon Dioxide 33.0 H Anion Gap 5 BUN 10 Creatinine 0.77 Estim Creat Clear Calc 50.91 Est GFR (MDRD) Af Amer 95 Est GFR (MDRD) Non-Af 79 BUN/Creatinine Ratio 13.0 Glucose 88 Calcium 8.8 Radiography Chest X-Ray - ED: Read by ED Physician and Read by Radiologist Diagnostic Testing: Radiology Impression Ribs w/Chest X-Ray 11/24/20 11:18 IMPRESSION: RIBS: Acute fracture the lateral left fifth rib CHEST: No pneumothorax or hemothorax. Electronically Signed: Jim Soriano MD at 13:01 EDT Tel , Service support , Discharge Plan Triage Chief Complaint: Fall ED Provider: Vlaentine Andrea Dx/Rx/DC Orders Clinical Impression: Left rib fracture Instructions: ED Rib Fracture Prescriptions: New hydrocodone-acetaminophen [hydrocodone-acetaminophen] 1 TABLET tablet 1 tab PO Q6H PRN PRN (Reason: Pain) 3 Days Qty: 10 RF: 0 No Action celecoxib 200 MG capsule 200 mg PO BID RF: 0 propranolol 40 MG tablet 40 mg PO BID RF: 0 calcium carbonate 500 MG tablet,chewable 500 mg PO TID RF: 0 hydrochlorothiazide 25 MG tablet 25 mg PO DAILY RF: 0 ferrous fumarate 324 MG tablet 325 mg PO DAILY RF: 0 duloxetine 30 MG capsule 30 mg PO DAILY RF: 0 ibandronate 150 MG tablet 150 mg PO Q30D RF: 0 cholecalciferol (vitamin D3) 1,000 UNIT tablet 2,000 unit PO BID RF: 0 Primary Care Provider: Carl Bourgeois Referrals: Carl Bourgeois DO [Primary Care Provider] -
[2020-11-24 12:03] LABS: Absolute Lymphocyte Count 0.95 X10^3/uL (0.83-4.51); Absolute Neutrophil Count 4.4 X10^3/uL (2.0-7.7); Basophil# 0.03 X10^3/uL; Basophil% 0.5 % (0-1); Eosinophil# 0.06 X10^3/uL; Hematocrit 36.1 % (37-47); Hemoglobin 11.5 g/dL (12.0-15.0); Lymphocyte # 0.95 X10^3/ul (0.83-4.51); Lymphocyte % 16.2 % (19-41); Mean Corp Hgb Conc 31.9 g/dL (32-36); Mean Corpuscular Volume 100.6 fL (81-99); Monocyte# 0.46 X10^3/uL; Monocyte% 7.8 % (0-10); NRBC Flagged by Analyzer 0 % (0-5); Neutrophil # 4.35 X10^3/uL (2.7-7.7); Neutrophil % 74.2 % (47-70); Platelet Count 259 K/mm3 (150-450); RBC Distribution Width CV 12.7 % (11.6-14.6); RBC Distribution Width SD 45.7 fl (35.1-43.9); Red Blood Count 3.59 M/mm3 (4.2-5.4); White Blood Count 5.9 K/mm3 (4.4-11.0)
[2020-11-24] MEDS: Diphth,Pertuss(Acell),Tet Vac 0.5 ML Vial IM (12:15)
[2020-11-24 12:23] LABS: Anion Gap 5 (5-15); BUN 10 mg/dL (7-18); Calcium,Total 8.8 mg/dL (8.5-10.1); Chloride 101 mmol/L (98-107); Creatinine, Serum 0.77 mg/dL (0.55-1.02); EST Glomerular Filtration Rate 79 mL/min (>60); Est Glom Filt Rate - Afr Amer 95 mL/min (>60); Estimated Creatinine Clearance 50.91 ml/min; Glucose 88 mg/dL (74-106); Potassium 4.3 mmol/L (3.5-5.1); Sodium Level 139 mmol/L (136-145)
[2020-11-24 14:00] VITALS: BP 158/85; PULSE 61; RESP 14; O2SAT 97
--- NOTE | 2020-11-24 14:32 | ED.RN ---
is given and instructed by sj bauman.
== END 2020-11-24 14:33 | disposition home or self-care (01) ==
LOC: ED 11:22
PROVIDERS: Emergency Provider Emergency Medicine; PCP Family Medicine
DX: S22.32XA Fracture of one rib, left side, initial encounter for closed fracture (principal); W22.09XA Striking against other stationary object, initial encounter
CPT/HCPCS: 71101; 80048; 85025; 90471; 90715; 99283; A4216

== ENCOUNTER → 2021-02-25 12:24 | Outpatient (CLI) | payer MEDICARE, OTHER, SELFPAY ==
[2021-02-25 15:19] LABS: Absolute Lymphocyte Count 1.25 X10^3/uL (0.83-4.51); Absolute Neutrophil Count 2.5 X10^3/uL (2.0-7.7); Basophil# 0.06 X10^3/uL; Basophil% 1.4 % (0-1); Eosinophil# 0.11 X10^3/uL; Eosinophils% 2.6 % (0-5); Hematocrit 35.7 % (37-47); Hemoglobin 11.6 g/dL (12.0-15.0); Lymphocyte # 1.25 X10^3/ul (0.83-4.51); Lymphocyte % 29.2 % (19-41); Mean Corp Hgb Conc 32.5 g/dL (32-36); Mean Corpuscular Hgb 32.2 pg (27.0-32.0); Mean Corpuscular Volume 99.2 fL (81-99); Mean Platelet Vol. 10.7 fl (6.2-12.0); Monocyte# 0.37 X10^3/uL; Monocyte% 8.6 % (0-10); NRBC Flagged by Analyzer 0 % (0-5); Neutrophil # 2.48 X10^3/uL (2.7-7.7); Platelet Count 306 K/mm3 (150-450); RBC Distribution Width CV 12.6 % (11.6-14.6); RBC Distribution Width SD 45.2 fl (35.1-43.9); White Blood Count 4.3 K/mm3 (4.4-11.0)
[2021-02-25 15:46] LABS: ALB/GLOB Ratio 1.2 RATIO (0.9-2.4); AST(SGOT) 30 U/L (15-37); Alanine Aminotransfer ALT/SGPT 33 U/L (13-56); Albumin, Serum 3.7 g/dL (3.2-5.0); Alkaline Phosphatase 66 U/L (45-117); Anion Gap 7 (5-15); BUN 12 mg/dL (7-18); BUN/Creat Ratio 15.9 RATIO (10-20); Calcium,Total 9.1 mg/dL (8.5-10.1); Chloride 100 mmol/L (98-107); Creatinine, Serum 0.76 mg/dL (0.55-1.02); EST Glomerular Filtration Rate 80 mL/min (>60); Est Glom Filt Rate - Afr Amer 97 mL/min (>60); Glucose 86 mg/dL (74-106); Potassium 3.4 mmol/L (3.5-5.1); Protein, Total 6.7 g/dL (6.4-8.2); Sodium Level 138 mmol/L (136-145)
== END ==
PROVIDERS: PCP Family Medicine; Referring Provider Internal Medicine Rheumatology; Visit Provider Internal Medicine Rheumatology
DX: M06.4 Inflammatory polyarthropathy (principal); Z79.899 Other long term (current) drug therapy; R76.8 Other specified abnormal immunological findings in serum; M79.7 Fibromyalgia; G43.909 Migraine, unspecified, not intractable, without status migrainosus; I10 Essential (primary) hypertension; F32.89 Other specified depressive episodes; M81.0 Age-related osteoporosis without current pathological fracture; N39.3 Stress incontinence (female) (male)
CPT/HCPCS: 36415; 80053; 85025

== ENCOUNTER → 2021-04-17 10:02 | Outpatient (CLI) | payer MEDICARE, OTHER, SELFPAY ==
--- NOTE | 2021-04-17 10:04 | BI_ITS ---
MAMMOGRAPHY - BILATERAL SCREENING REASON FOR EXAM: Female, 70 years old. Routine annual screening examination. PERTINENT HISTORY: Non-contributory. TECHNIQUE: Digital bilateral breast sarath (3D mammographic acquisition) in the CC and MLO projections. 2-D mediolateral oblique (MLO) and craniocaudad (CC) views of both breasts were obtained. CAD: Full Field Digital Mammography with Computer Added Detection was performed. COMPARISON: Comparison is made with prior study dated 03/19/2020 and 03/16/2019. FINDINGS: Breast Composition: There are scattered areas of fibroglandular density. There are no dominant masses or suspicious calcifications. Stable small benign appearing bilateral axillary lymph nodes. No other significant abnormalities are identified. There has been no significant change since the prior study. BI/SCRN MAMM (CAD)W/SARATH BILAT IMPRESSION: Stable bilateral screening mammogram. Yearly follow-up mammogram recommended. (A) ASSESSMENT CATEGORY: BIRADS Category 2: Benign. A letter regarding these results will be sent to the patient by the facility within 30 days. Approximately 10% of breast cancers are not detected by mammography. A normal mammogram should not delay biopsy of a clinically suspicious abnormality. [id number] Electronically Signed: Manfred Aaron MD at 12:16 EDT , Service support ,
== END ==
PROVIDERS: PCP Family Medicine; Visit Provider Family Medicine
DX: Z12.31 Encounter for screening mammogram for malignant neoplasm of breast (principal)
CPT/HCPCS: 77063; 77067

== ENCOUNTER → 2021-05-20 11:00 | Outpatient (CLI) | payer MEDICARE, OTHER, SELFPAY ==
[2021-05-20 12:34] LABS: Absolute Lymphocyte Count 1.21 X10^3/uL (0.83-4.51); Absolute Neutrophil Count 3.1 X10^3/uL (2.0-7.7); Basophil# 0.06 X10^3/uL; Basophil% 1.2 % (0-1); Eosinophil# 0.06 X10^3/uL; Eosinophils% 1.2 % (0-5); Hematocrit 38.4 % (37-47); Hemoglobin 12.5 g/dL (12.0-15.0); Lymphocyte # 1.21 X10^3/ul (0.83-4.51); Lymphocyte % 24.5 % (19-41); Mean Corp Hgb Conc 32.6 g/dL (32-36); Mean Corpuscular Hgb 32.4 pg (27.0-32.0); Mean Corpuscular Volume 99.5 fL (81-99); Mean Platelet Vol. 10.5 fl (6.2-12.0); Monocyte# 0.46 X10^3/uL; Monocyte% 9.3 % (0-10); NRBC Flagged by Analyzer 0 % (0-5); Neutrophil # 3.13 X10^3/uL (2.7-7.7); Neutrophil % 63.4 % (47-70); Platelet Count 350 K/mm3 (150-450); RBC Distribution Width CV 12.4 % (11.6-14.6); RBC Distribution Width SD 44.2 fl (35.1-43.9); Red Blood Count 3.86 M/mm3 (4.2-5.4); White Blood Count 4.9 K/mm3 (4.4-11.0)
[2021-05-20 13:20] LABS: AST(SGOT) 38 U/L (15-37); Alanine Aminotransfer ALT/SGPT 36 U/L (13-56); Albumin, Serum 3.6 g/dL (3.2-5.0); Alkaline Phosphatase 60 U/L (45-117); Anion Gap 4 (5-15); BUN 18 mg/dL (7-18); BUN/Creat Ratio 20.1 RATIO (10-20); Calcium,Total 9.2 mg/dL (8.5-10.1); Chloride 101 mmol/L (98-107); Creatinine, Serum 0.89 mg/dL (0.55-1.02); EST Glomerular Filtration Rate 66 mL/min (>60); Est Glom Filt Rate - Afr Amer 80 mL/min (>60); Globulin 3.7 g/dL (2.2-4.2); Glucose 70 mg/dL (74-106); Potassium 3.9 mmol/L (3.5-5.1); Protein, Total 7.3 g/dL (6.4-8.2); Sodium Level 138 mmol/L (136-145)
== END ==
PROVIDERS: PCP Family Medicine; Referring Provider Internal Medicine Rheumatology; Visit Provider Internal Medicine Rheumatology
DX: M06.4 Inflammatory polyarthropathy (principal); Z79.899 Other long term (current) drug therapy; R76.8 Other specified abnormal immunological findings in serum; M79.7 Fibromyalgia; G43.909 Migraine, unspecified, not intractable, without status migrainosus; I10 Essential (primary) hypertension; F32.89 Other specified depressive episodes; M81.0 Age-related osteoporosis without current pathological fracture; N39.3 Stress incontinence (female) (male)
CPT/HCPCS: 36415; 80053; 85025

== ENCOUNTER 2021-08-05 13:47 | Outpatient (CLI) | payer MEDICARE, OTHER, SELFPAY ==
[2021-08-05 15:15] LABS: Absolute Lymphocyte Count 1.41 X10^3/uL (0.83-4.51); Absolute Neutrophil Count 3.4 X10^3/uL (2.0-7.7); Basophil# 0.06 X10^3/uL; Basophil% 1.1 % (0-1); Eosinophil# 0.07 X10^3/uL; Eosinophils% 1.3 % (0-5); Hematocrit 36.7 % (37-47); Hemoglobin 12.3 g/dL (12.0-15.0); Lymphocyte # 1.41 X10^3/ul (0.83-4.51); Lymphocyte % 25.7 % (19-41); Mean Corp Hgb Conc 33.5 g/dL (32-36); Mean Corpuscular Hgb 32.7 pg (27.0-32.0); Mean Corpuscular Volume 97.6 fL (81-99); Monocyte# 0.53 X10^3/uL; Monocyte% 9.7 % (0-10); NRBC Flagged by Analyzer 0 % (0-5); Platelet Count 324 K/mm3 (150-450); RBC Distribution Width CV 12.6 % (11.6-14.6); RBC Distribution Width SD 44.2 fl (35.1-43.9); Red Blood Count 3.76 M/mm3 (4.2-5.4); White Blood Count 5.5 K/mm3 (4.4-11.0)
[2021-08-05 15:56] LABS: ALB/GLOB Ratio 1.1 RATIO (0.9-2.4); AST(SGOT) 26 U/L (15-37); Alanine Aminotransfer ALT/SGPT 33 U/L (13-56); Albumin, Serum 3.7 g/dL (3.2-5.0); Alkaline Phosphatase 44 U/L (45-117); Anion Gap 7 (5-15); BUN 15 mg/dL (7-18); BUN/Creat Ratio 17.6 RATIO (10-20); Chloride 99 mmol/L (98-107); Creatinine, Serum 0.85 mg/dL (0.55-1.02); EST Glomerular Filtration Rate 70 mL/min (>60); Est Glom Filt Rate - Afr Amer 85 mL/min (>60); Globulin 3.3 g/dL (2.2-4.2); Glucose 84 mg/dL (74-106); Potassium 3.2 mmol/L (3.5-5.1); Sodium Level 139 mmol/L (136-145)
== END 2021-08-05 23:59 | disposition short-term general hospital (02) ==
LOC: MTLAB 13:49
PROVIDERS: PCP Family Medicine; Referring Provider Internal Medicine Rheumatology; Visit Provider Internal Medicine Rheumatology
DX: M06.4 Inflammatory polyarthropathy (principal); R76.8 Other specified abnormal immunological findings in serum; M79.7 Fibromyalgia; G43.909 Migraine, unspecified, not intractable, without status migrainosus; I10 Essential (primary) hypertension; F32.89 Other specified depressive episodes; M81.0 Age-related osteoporosis without current pathological fracture; N39.3 Stress incontinence (female) (male); Z79.899 Other long term (current) drug therapy
CPT/HCPCS: 36415; 80053; 85025

== ENCOUNTER 2021-10-08 06:03 | Outpatient (CLI) | payer MEDICARE, OTHER, SELFPAY ==
--- NOTE | 2021-10-08 09:23 | NEURO ---
NCS and/or EMG Patient Report Ordering Doctor: Brodie Vizcarra DATE OF SERVICE: 10/08/21 Shital Rowell presents for electrodiagnostic testing of the lower limbs. She reports heaviness in the legs. She reports multiple falls over the past year, which she attributes to dizziness. She has intermittent lower back pain. Electrodiagnostic findings: Right peroneal motor responses within normal limits. Mildly prolonged left peroneal motor latency with normal amplitude and conduction velocity. Tibial motor response within normal limits borderline prolonged sural latency bilaterally. Borderline prolonged left superficial peroneal latency. Normal plantar responses. Normal right superficial peroneal latency is noted. H reflex Prolonged bilaterally. On needle EMG, all muscles tested in the lower limbs as well as lumbar paraspinal showed no evidence of denervation with normal motor unit action potentials. Electrodiagnostic impression:Normal study in the lower limbs. 1. Electrodiagnostic findings suggestive of a mild, sensory greater than motor, polyneuropathy. 2. No EMG findings for lumbosacral radiculopathy.
== END 2021-10-08 23:59 | disposition home or self-care (01) ==
LOC: PSN 06:04
PROVIDERS: PCP Family Medicine; Referring Provider Orthopaedic Surgery; Visit Provider Orthopaedic Surgery
DX: M48.061 Spinal stenosis, lumbar region without neurogenic claudication (principal)
CPT/HCPCS: 95886; 95912

== ENCOUNTER 2021-10-28 14:00 | Outpatient (CLI) | payer MEDICARE, OTHER, SELFPAY ==
[2021-10-28 15:21] LABS: Absolute Lymphocyte Count 1.42 X10^3/uL (0.83-4.51); Absolute Neutrophil Count 3.9 X10^3/uL (2.0-7.7); Basophil# 0.05 X10^3/uL; Basophil% 0.9 % (0-1); Eosinophil# 0.13 X10^3/uL; Eosinophils% 2.2 % (0-5); Hematocrit 35.5 % (37-47); Hemoglobin 11.7 g/dL (12.0-15.0); Lymphocyte # 1.42 X10^3/ul (0.83-4.51); Lymphocyte % 24.2 % (19-41); Mean Corpuscular Hgb 32.5 pg (27.0-32.0); Mean Corpuscular Volume 98.6 fL (81-99); Mean Platelet Vol. 10.5 fl (6.2-12.0); Monocyte# 0.41 X10^3/uL; NRBC Flagged by Analyzer 0 % (0-5); Neutrophil # 3.85 X10^3/uL (2.7-7.7); Neutrophil % 65.5 % (47-70); Platelet Count 354 K/mm3 (150-450); RBC Distribution Width CV 12.3 % (11.6-14.6); RBC Distribution Width SD 44.1 fl (35.1-43.9); White Blood Count 5.9 K/mm3 (4.4-11.0)
[2021-10-28 16:03] LABS: AST(SGOT) 26 U/L (15-37); Alanine Aminotransfer ALT/SGPT 25 U/L (13-56); Albumin, Serum 3.4 g/dL (3.2-5.0); Alkaline Phosphatase 64 U/L (45-117); Anion Gap 6 (5-15); BUN 12 mg/dL (7-18); BUN/Creat Ratio 13.8 RATIO (10-20); Calcium,Total 8.7 mg/dL (8.5-10.1); Chloride 98 mmol/L (98-107); Creatinine, Serum 0.87 mg/dL (0.55-1.02); EST Glomerular Filtration Rate 68 mL/min (>60); Est Glom Filt Rate - Afr Amer 83 mL/min (>60); Globulin 3.4 g/dL (2.2-4.2); Glucose 98 mg/dL (74-106); Potassium 3.1 mmol/L (3.5-5.1); Protein, Total 6.8 g/dL (6.4-8.2); Sodium Level 136 mmol/L (136-145)
== END 2021-10-28 23:59 | disposition home or self-care (01) ==
LOC: MTLAB 14:02
PROVIDERS: PCP Family Medicine; Referring Provider Internal Medicine Rheumatology; Visit Provider Internal Medicine Rheumatology
DX: M06.4 Inflammatory polyarthropathy (principal); Z79.899 Other long term (current) drug therapy; R76.8 Other specified abnormal immunological findings in serum; M79.7 Fibromyalgia; G43.909 Migraine, unspecified, not intractable, without status migrainosus; I10 Essential (primary) hypertension; F32.89 Other specified depressive episodes; M81.0 Age-related osteoporosis without current pathological fracture; N39.3 Stress incontinence (female) (male)
CPT/HCPCS: 36415; 80053; 85025

== ENCOUNTER → 2022-01-28 | Outpatient (CLI) | payer MEDICARE, OTHER, SELFPAY ==
[2022-01-28 15:22] LABS: Absolute Lymphocyte Count 1.16 X10^3/uL (0.83-4.51); Absolute Neutrophil Count 3.4 X10^3/uL (2.0-7.7); Basophil# 0.05 X10^3/uL; Eosinophils% 1.9 % (0-5); Hematocrit 35.6 % (37-47); Hemoglobin 11.7 g/dL (12.0-15.0); Lymphocyte # 1.16 X10^3/ul (0.83-4.51); Lymphocyte % 22.6 % (19-41); Mean Corp Hgb Conc 32.9 g/dL (32-36); Mean Corpuscular Hgb 32.7 pg (27.0-32.0); Mean Corpuscular Volume 99.4 fL (81-99); Mean Platelet Vol. 10.8 fl (6.2-12.0); Monocyte# 0.46 X10^3/uL; NRBC Flagged by Analyzer 0 % (0-5); Neutrophil # 3.35 X10^3/uL (2.7-7.7); Neutrophil % 65.3 % (47-70); Platelet Count 297 K/mm3 (150-450); RBC Distribution Width CV 12.6 % (11.6-14.6); RBC Distribution Width SD 45.3 fl (35.1-43.9); Red Blood Count 3.58 M/mm3 (4.2-5.4); White Blood Count 5.1 K/mm3 (4.4-11.0)
[2022-01-28 15:24] LABS: Color, Urine Yellow (Yellow); Glucose, Dipstick Normal (Normal); Ketone-Dipstick Negative (Negative); Leukocyte Esterase-Dipstick 25 /ul (Negative); Nitrite-Dipstick Negative (Negative); Occult Blood-Urine Negative /ul (Negative); Protein-Dipstick Negative (Negative); Urine Bilirubin Dipstick Negative (Negative); Urine Clarity Clear (Clear); Urine Urobilinogen Normal (Normal)
[2022-01-28 16:06] LABS: ALB/GLOB Ratio 1.1 RATIO (0.9-2.4); AST(SGOT) 26 U/L (15-37); Alanine Aminotransfer ALT/SGPT 26 U/L (13-56); Albumin, Serum 3.4 g/dL (3.2-5.0); Alkaline Phosphatase 58 U/L (45-117); Anion Gap 4 (5-15); BUN 14 mg/dL (7-18); BUN/Creat Ratio 16.2 RATIO (10-20); Calcium,Total 9.1 mg/dL (8.5-10.1); Chloride 102 mmol/L (98-107); Creatinine, Serum 0.86 mg/dL (0.55-1.02); EST Glomerular Filtration Rate 69 mL/min (>60); Est Glom Filt Rate - Afr Amer 83 mL/min (>60); Glucose 81 mg/dL (74-106); Potassium 3.7 mmol/L (3.5-5.1); Protein, Total 6.4 g/dL (6.4-8.2); Protein, Urine (Random) 14.4 mg/dL (<11.9); Protein:Creat Ratio 301 mg/g CRE (0-200); Sodium Level 137 mmol/L (136-145)
== END | disposition home or self-care (01) ==
PROVIDERS: PCP Family Medicine; Referring Provider Internal Medicine Rheumatology; Visit Provider Internal Medicine Rheumatology
DX: M06.4 Inflammatory polyarthropathy (principal); Z79.899 Other long term (current) drug therapy; R76.8 Other specified abnormal immunological findings in serum; M79.7 Fibromyalgia; G43.909 Migraine, unspecified, not intractable, without status migrainosus; I10 Essential (primary) hypertension; F32.89 Other specified depressive episodes; M81.0 Age-related osteoporosis without current pathological fracture; N39.3 Stress incontinence (female) (male)
CPT/HCPCS: 36415; 80053; 81002; 82570; 84156; 85025

== ENCOUNTER → 2022-02-02 | Outpatient (CLI) | payer MEDICARE, OTHER, SELFPAY ==
[2022-02-02 15:53] LABS: EXAGEN MAILED SPECIMEN
== END | disposition home or self-care (01) ==
LOC: MTLAB 14:36
PROVIDERS: PCP Family Medicine; Referring Provider Internal Medicine Rheumatology; Visit Provider Internal Medicine Rheumatology
DX: M06.4 Inflammatory polyarthropathy (principal); R76.8 Other specified abnormal immunological findings in serum

== ENCOUNTER → 2022-03-26 | Outpatient (CLI) | payer MEDICARE, OTHER, SELFPAY ==
--- NOTE | 2022-03-26 13:52 | ART_ITS ---
Reason For Study: PVD Procedure A bilateral lower extremity continuous wave Doppler with analog waveform analysis,segmental pressures,and ankle brachial indexes with exercise. Pt states she is unable to perform exercise portion of exam. Pt walkes with a cane and is unsteady. Left Segmental Pressures Left brachial= 148mmHg. Left posterior tibial artery = 177mmHg. Left dorsalis pedis artery = 166mmHg. Left digit = 27 mmHg. The left dorsalis pedis waveforms are triphasic. The left posterior tibial artery waveforms are triphasic. Right Segmental Pressures Right brachial= 156mmHg. Right posterior tibial artery = 179mmHg. Right dorsalis pedis artery = 168mmHg. Right digit = 53 mmHg. The right dorsalis pedis waveforms are triphasic. The right posterior tibial artery waveforms are triphasic. Indices The right ankle brachial index by the dorsalis pedis is 1.08. The right ankle brachial index by the posterior tibial artery is 1.15. The right digital-brachial index is .34. The left ankle brachial index by the dorsalis pedis is 1.06. The left ankle brachial index by the posterior tibial artery is 1.13. The left digital-brachial index is .17. VL/Lower Ext Art Exam w/ Exercise Interpretation Summary Triphasic Doppler waveforms are noted at ankle level bilaterally. Pulse-volume recordings appear diminished at digital level bilaterally, but satisfactory at all other levels b ilaterally. Resting ankle-brachial indices are normal bilaterally. Digital-brachial indices are sev erely diminished bilaterally. Arterial flow appears to be normal at ankle level bilaterally. There is evidenc e of severe arterial occlusive disease at digital level bilaterally. Ordering Physician: Brodie Ruiz Performed By: Juanito Marie, RVT
== END | disposition home or self-care (01) ==
LOC: CVS 13:48
PROVIDERS: PCP Family Medicine; Referring Provider Podiatrist; Visit Provider Podiatrist
DX: I73.9 Peripheral vascular disease, unspecified (principal)
CPT/HCPCS: 93924

== ENCOUNTER → 2022-03-31 | Outpatient (CLI) | payer MEDICARE, OTHER, SELFPAY ==
--- NOTE | 2022-03-31 12:28 | MRI_ITS ---
STUDY: MRI LUMBAR SPINE WITHOUT CONTRAST REASON FOR EXAM: Female, 71 years old. BILAT LEG WEAKNESS,LBP, DDD TECHNIQUE: Standardized fat and water weighted pulse sequences were obtained in the sagittal and axial planes. COMPARISON: None FINDINGS: T12-L1: Normal endplates. Normal disc height, hydration and morphology. Normal bilateral facet joints. Normal central canal and bilateral lateral recesses. Normal bilateral intervertebral neural foramina. Normal lumbar lordosis. There is no substantial scoliosis. Normal conus medullaris that terminates at the T12/L1. L1-2: Disc desiccation but no disc protrusion, spinal stenosis, or neural foraminal stenosis. L2-3: Mild bilateral facet hypertrophy and ligament flavum hypertrophy. Mild bilobed disc protrusion produces mild spinal stenosis and mild bilateral neural foraminal stenosis. L3-4: Normal endplates. Normal disc height, hydration and morphology. Normal bilateral facet joints. Normal central canal and bilateral lateral recesses. Normal bilateral intervertebral neural foramina. L4-5: Severe bilateral facet hypertrophy and moderate ligament flavum hypertrophy. 2 mm of anterolisthesis of L4 on L5 and a mild broad disc protrusion produces moderate spinal stenosis and moderate bilateral neural foraminal stenosis with abutment of the exiting L4 nerve roots by laterally. L5-S1: Normal endplates. Normal disc height, hydration and morphology. Normal bilateral facet joints. Normal central canal and bilateral lateral recesses. Normal bilateral intervertebral neural foramina. Normal visualized sacral ala. Normal visualized paraspinous soft tissue structures. MRI/Spine Lumbar (Routine) IMPRESSION: Multilevel degenerative changes, as described above. Electronically Signed: Jim Soriano MD at 16:50 EDT ,
== END | disposition home or self-care (01) ==
LOC: MRI 12:27
PROVIDERS: PCP Family Medicine; Referring Provider Family Medicine; Visit Provider Family Medicine
DX: M79.604 Pain in right leg (principal); M79.605 Pain in left leg; R29.898 Other symptoms and signs involving the musculoskeletal system; M51.36 Other intervertebral disc degeneration, lumbar region
CPT/HCPCS: 72148

== ENCOUNTER 2022-04-29 11:05 | Observation (INO) | payer MEDICARE, OTHER, SELFPAY ==
[2022-04-29] VITALS (8 sets, daily range): BP systolic 100–148; BP diastolic 51–75; PULSE 53–64; RESP 14–18; TEMP 36.2–36.8; O2SAT 94–100; BMI 30.7; BMI 30.3
--- NOTE | 2022-04-29 11:53 | EX.ED.DYSGE1 ---
HPI History of Present Illness Chief Complaint: Weakness Informant: patient Onset/Context/Timing Onset: Weeks (2-3) Context: Sudden Onset Timing: Continuous Quality: Difficulty getting words out Worsened by: Fatigue Relieved by: Nothing Narrative Narrative: Patient presents with slurred speech and aphasia that has been constant for the past 2 to 3 weeks. Patient states that she has difficulty getting her words out. Patient states this morning she was unable to speak at all for a brief amount of time. Patient states this is worse whenever she gets tired. Patient also admits to some bilateral lower extremity weakness. Patient states she is scheduled to have physical therapy. Patient states that this morning she was having difficulty lifting her legs. Patient admits to some decreased circulation in her toes and she is seeing a vascular surgeon for this. [facility] Medical History Arthritis Carpal tunnel syndrome, right Depressive disorder Dyspnea on exertion Hot flashes Hypertension Lupus Migraine headache Osteoarthritis Osteoporosis SLE (systemic lupus erythematosus related syndrome) Stress incontinence in female Vaginal ulcer Home Medications ferrous fumarate 324 mg (106 mg iron) tablet 325 mg PO DAILY 11/26/15 [History Last Taken Unknown] hydrochlorothiazide 25 mg tablet 25 mg PO DAILY bp 11/26/15 [History Last Taken Unknown] ibandronate 150 mg tablet 150 mg PO Q30D 11/26/15 [History Last Taken Unknown] propranolol 40 mg tablet 40 mg PO BID bp 11/26/15 [History Last Taken 10/20/18 40 MG] amoxicillin 500 mg tablet 2,000 mg PO ONCE 04/07/22 [History Last Taken Unknown] calcium carbonate 500 mg-vitamin D3 10 mcg (400 unit) tablet 1 tab PO TID 04/07/22 [History Last Taken Unknown] cholecalciferol (vitamin D3) 25 mcg (1,000 unit) tablet 2,000 unit PO DAILY 04/07/22 [History Last Taken Unknown] duloxetine 30 mg capsule,delayed release 60 mg PO BID 04/07/22 [History Last Taken Unknown] folic acid 1 mg tablet 1 mg PO BID 04/07/22 [History Last Taken Unknown] hydroxychloroquine 200 mg tablet (Plaquenil) 200 mg PO BID 04/07/22 [History Last Taken Unknown] loratadine 10 mg tablet (Allergy Relief (loratadine)) 10 mg PO DAILY PRN allergic symptoms 04/07/22 [History Last Taken Unknown] methotrexate sodium 2.5 mg tablet 15 mg PO QWEEK 04/07/22 [History Last Taken Unknown] potassium chloride 10 mEq tablet,extended release(part/cryst) 10 meq PO BID 04/07/22 [History Last Taken Unknown] prednisone 10 mg tablet 10 mg PO DAILY PRN Pain 04/07/22 [History Last Taken Unknown] topiramate 25 mg sprinkle capsule 25 mg PO DAILY 04/07/22 [History Last Taken Unknown] Allergy/AdvReac Type Severity Reaction Status Date / Time codeine Allergy Rash Verified 04/29/22 11:07 Family History Sister Lupus Mother CVA (cerebral vascular accident) Heart disease Hypertension Father Heart disease Hypertension Brother Heart disease Sister Diabetes Surgical History H/O dilation and curettage H/O tubal ligation History of hernia surgery History of hip surgery History of tonsillectomy Social History adopted: No household members: spouse housing: house number of children: 1 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 status: retired 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 [employer] pets and animals: Yes Smoking Status: Never smoker second hand exposure: No alcohol intake: never substance use type: does not use seatbelt use: always do you feel safe at home: Yes additional social history: - Riki BROOKS ROS ED Constitutional Constitutional ED: Denies chills or fever(s) Eyes Eyes: Reports blurry vision; Denies diplopia ENT ENT ED: Reports rhinorrhea; Denies sore throat Cardiovascular Cardiovascular: Denies chest pain or palpitations Respiratory/Chest Respiratory/Chest: Denies cough or dyspnea Gastrointestinal Gastrointestinal: Reports nausea and vomiting Genitourinary Genitourinary ED: Denies dysuria or hematuria Musculoskeletal Musculoskeletal: Reports back pain and neck pain Integumentary Denies abscess or rash Neurologic Neurologic: Reports paresthesias and weakness; Denies headache(s) Allergic/Immunologic Allergic/Immunologic ED: Denies mouth swelling or urticaria EXAM Physical Exam Const Vital Signs: 04/29/22 11:07 04/29/22 12:02 04/29/22 12:02 Temperature 97.2 F L Temperature Source Temporal Pulse Rate 55 L 53 L Respiratory Rate 14 Respiratory Effort Normal Non-Labored Respiratory Pattern Normal Blood Pressure 141/67 H 112/75 Blood Pressure Mean 91 87 Pulse Ox 97 Oxygen Delivery Method Room Air Positive well nourished and well developed General Appearance ED: well developed and NAD HEENT Reports moist mucous membranes Neck supple and no JVD Resp normal respiratory effort and clear to auscultation bilaterally Cardio regular rate, regular rhythm and no murmurs GI normal to inspection, nondistended, normoactive bowel sounds and non-tender Palpation: soft Extremity normal to inspection General Extremety ED: Negative for edema or tenderness General Extremity: Negative for edema Neuro oriented x3, CN's II-XII intact bilaterally and no sensory deficits noted Neuro Narrative: [id number] was intact. There is no ataxia noted. Sensorium / Orientation: alert Motor Exam: strength 5/5 throughout Psych mental status grossly normal Skin no rashes or lesions noted MDM MDM MDM Narrative Medical decision making narrative: CT scan of the brain was obtained. There is no acute intracranial abnormality. This was interpreted by the radiologist and reviewed by myself. Portable 1 view chest x-ray was obtained. On my interpretation, lung bhandari are clear. There is normal cardiac silhouette. Bony thorax is normal. There is no acute process noted. Radiologist also interpreted the x-ray and agrees. CBC was within normal limits. PT with INR and PTT was within normal limits. Comprehensive metabolic profile showed a mild hypokalemia of 3.2. High-sensitivity troponin was normal. Lactate was normal. Urinalysis was ordered and is pending. Patient was able to ambulate to the bathroom and back. Case was discussed with the hospitalist. He will admit the patient for observation for TIA work-up. Patient and family understood and were agreeable with the plan. All questions were answered. Lab Data Attestation: I reviewed the patient's lab results. Labs: Laboratory Results - last 24 hr 04/29/22 04/29/22 04/29/22 12:00 12:00 12:00 WBC 8.5 RBC 3.64 L Hgb 12.2 Hct 36.6 L MCV 100.5 H MCH 33.5 H MCHC 33.3 RDW Std Deviation 46.2 H RDW Coeff of Eduardo 12.5 Plt Count 320 MPV 10.5 Immature Gran % (Auto) 0.400 Neut % (Auto) 70.0 Lymph % (Auto) 22.0 Daniels % (Auto) 7.0 Eos % (Auto) 0.2 Baso % (Auto) 0.4 Absolute Neuts (auto) 6.0 Absolute Lymphs (auto) 1.88 Nucleated RBC % 0 PT 13.0 INR 1.0 APTT 26.3 Sodium 142 Potassium 3.2 L Chloride 107 Carbon Dioxide 30.0 Anion Gap 5 BUN 17 Creatinine 1.02 Estim Creat Clear Calc 44.86 Est GFR (MDRD) Af Amer 69 Est GFR (MDRD) Non-Af 57 L BUN/Creatinine Ratio 16.7 Glucose 86 Lactic Acid Calcium 8.9 Total Bilirubin 0.60 AST 21 ALT 25 Alkaline Phosphatase 43 L Troponin I High Sens 8 Total Protein 6.3 L Albumin 3.1 L Globulin 3.2 Albumin/Globulin Ratio 1.0 Urine Color Urine Clarity Urine pH Ur Specific Constantine Urine Protein Urine Glucose (UA) Urine Ketones Urine Occult Blood Urine Nitrite Urine Bilirubin Urine Urobilinogen Ur Leukocyte Esterase 04/29/22 04/29/22 12:00 12:40 WBC RBC Hgb Hct MCV MCH MCHC RDW Std Deviation RDW Coeff of Eduardo Plt Count MPV Immature Gran % (Auto) Neut % (Auto) Lymph % (Auto) Daniels % (Auto) Eos % (Auto) Baso % (Auto) Absolute Neuts (auto) Absolute Lymphs (auto) Nucleated RBC % PT INR APTT Sodium Potassium Chloride Carbon Dioxide Anion Gap BUN Creatinine Estim Creat Clear Calc Est GFR (MDRD) Af Amer Est GFR (MDRD) Non-Af BUN/Creatinine Ratio Glucose Lactic Acid 0.9 Calcium Total Bilirubin AST ALT Alkaline Phosphatase Troponin I High Sens Total Protein Albumin Globulin Albumin/Globulin Ratio Urine Color Yellow Urine Clarity Sl. Cloudy Urine pH 7.0 Ur Specific Constantine 1.010 Urine Protein 30 H Urine Glucose (UA) Normal Urine Ketones 5 H Urine Occult Blood Negative Urine Nitrite Negative Urine Bilirubin 1 H Urine Urobilinogen Normal Ur Leukocyte Esterase 100 H Radiography Chest X-Ray - ED: 1 View, Read by ED Physician, Read by Radiologist, No Acute Disease and Chronic Changes Diagnostic Testing: Clinical Impression(s) from Imaging Studies Brain CT 04/29/22 11:55 IMPRESSION: 1. Chronic involutional changes of the brain. Electronically Signed: Nemesio Patel MD at 12:40 EDT , Chest X-Ray 04/29/22 12:24 IMPRESSION: Degenerative changes, as described above. No demonstrated acute cardiopulmonary process. Electronically Signed: Nemesio Patel MD at 12:42 EDT , Discharge Plan Triage Chief Complaint: Weakness ED Provider: Reggie Michele Dx/Rx/DC Orders Clinical Impression: Brain TIA, Weakness of both lower extremities, Expressive aphasia Prescriptions: No Action folic acid 1 mg tablet 1 mg PO BID methotrexate sodium 2.5 mg tablet 15 mg PO QWEEK amoxicillin 500 mg tablet 2,000 mg PO ONCE Rx Instructions: prior to dentist appt hydroxychloroquine [Plaquenil] 200 mg tablet 200 mg PO BID calcium carbonate-vitamin D3 500 mg-10 mcg (400 unit) tablet 1 tab PO TID loratadine [Allergy Relief (loratadine)] 10 mg tablet 10 mg PO DAILY PRN (Reason: allergic symptoms) potassium chloride 10 mEq tablet,ER particles/crystals 10 meq PO BID prednisone 10 mg tablet 10 mg PO DAILY PRN (Reason: Pain) topiramate 25 mg capsule, sprinkle 25 mg PO DAILY propranolol 40 MG tablet 40 mg PO BID Label Comments: heart/blood pressure hydrochlorothiazide 25 MG tablet 25 mg PO DAILY Label Comments: blood pressure ferrous fumarate 324 MG tablet 325 mg PO DAILY Label Comments: supplement ibandronate 150 MG tablet 150 mg PO Q30D Label Comments: osteoporosis duloxetine 30 mg capsule,delayed release(DR/EC) 60 mg PO BID Label Comments: mood cholecalciferol (vitamin D3) 25 mcg (1,000 unit) tablet 2,000 unit PO DAILY Label Comments: supplement Primary Care Provider: Carl Bourgeois Referrals: Carl Bourgeois DO [Primary Care Provider] - Disposition Disposition: Acute Care Hospital [facility]
--- NOTE | 2022-04-29 11:55 | CT_ITS ---
STUDY: CT BRAIN WITHOUT CONTRAST REASON FOR EXAM: Female, 72 years old. Aphasia and bilateral leg weakness RADIATION DOSAGE (If Supplied By Facility): CTDIvol = ( 44.99 ) mGy, DLP = ( 796.11 ) mGycm TECHNIQUE: Transaxial CT imaging of the brain was performed without administration of intravenous contrast material. Individualized dose optimization techniques were used for this CT. COMPARISON: MRI of the brain dated September 12, 2018 FINDINGS: Normal soft tissue structures. Normal calvarium. No visualized sulcal effacement. No dense artery sign is seen. There is mild cerebral atrophy with widening of the extra-axial spaces and ventricular dilatation. Normal white matter tracts of the cerebral hemispheres. Normal basal ganglia and thalami. Normal brainstem. Normal cerebellum. There is no intracranial hemorrhage. There are no findings of an acute ischemic infarction. Normal visualized paranasal sinuses. CT/Brain/Head without Contrast IMPRESSION: 1. Chronic involutional changes of the brain. Electronically Signed: Nemesio Patel MD at 12:40 EDT ,
[2022-04-29 12:23] LABS: Absolute Lymphocyte Count 1.88 X10^3/uL (0.83-4.51); Basophil# 0.03 X10^3/uL; Basophil% 0.4 % (0-1); Eosinophil# 0.02 X10^3/uL; Eosinophils% 0.2 % (0-5); Hematocrit 36.6 % (37-47); Hemoglobin 12.2 g/dL (12.0-15.0); Lymphocyte # 1.88 X10^3/ul (0.83-4.51); Mean Corp Hgb Conc 33.3 g/dL (32-36); Mean Corpuscular Hgb 33.5 pg (27.0-32.0); Mean Corpuscular Volume 100.5 fL (81-99); Mean Platelet Vol. 10.5 fl (6.2-12.0); NRBC Flagged by Analyzer 0 % (0-5); Neutrophil # 5.98 X10^3/uL (2.7-7.7); Platelet Count 320 K/mm3 (150-450); RBC Distribution Width CV 12.5 % (11.6-14.6); RBC Distribution Width SD 46.2 fl (35.1-43.9); Red Blood Count 3.64 M/mm3 (4.2-5.4); White Blood Count 8.5 K/mm3 (4.4-11.0)
--- NOTE | 2022-04-29 12:24 | RAD_ITS ---
STUDY: X-RAY CHEST REASON FOR EXAM: Female, 72 years old. Cough BILAT LEG WEAKNESS. ALSO PT HAS HAD SLURRED SPEECH FOR A FEW WEEKS. TECHNIQUE: Single AP portable view of the chest. COMPARISON: Chest x-ray dated NOVEMBER 24, 2020 FINDINGS: The lungs are clear and expanded. There is no demonstrated pleural abnormality. Normal size heart. Normal mediastinum and roderick. Normal visualized pulmonary arteries. There is atherosclerotic tortuosity of the aortic arch and descending thoracic aorta. There are diffuse degenerative changes of the visualized thoracic spine. There is degenerative osteoarthritis of the bilateral shoulders. There is no demonstrated abnormality of the visualized soft tissue structures of the upper abdomen. RAD/Chest 1 View (Portable) IMPRESSION: Degenerative changes, as described above. No demonstrated acute cardiopulmonary process. Electronically Signed: Nemesio Patel MD at 12:42 EDT ,
[2022-04-29 12:35] LABS: Partial Thromboplast Time 26.3 Seconds (24.1-36.2)
[2022-04-29 12:39] LABS: AST(SGOT) 21 U/L (15-37); Alanine Aminotransfer ALT/SGPT 25 U/L (13-56); Albumin, Serum 3.1 g/dL (3.2-5.0); Alkaline Phosphatase 43 U/L (45-117); Anion Gap 5 (5-15); BUN 17 mg/dL (7-18); BUN/Creat Ratio 16.7 RATIO (10-20); Calcium,Total 8.9 mg/dL (8.5-10.1); Chloride 107 mmol/L (98-107); Creatinine, Serum 1.02 mg/dL (0.55-1.02); EST Glomerular Filtration Rate 57 mL/min (>60); Est Glom Filt Rate - Afr Amer 69 mL/min (>60); Estimated Creatinine Clearance 44.86 ml/min; Globulin 3.2 g/dL (2.2-4.2); Glucose 86 mg/dL (74-106); Potassium 3.2 mmol/L (3.5-5.1); Protein, Total 6.3 g/dL (6.4-8.2); Sodium Level 142 mmol/L (136-145); Troponin-I HS 8 pg/mL (3.0-54.0)
[2022-04-29 12:42] LABS: Lactic Acid 0.9 mmol/L (0.4-1.9)
[2022-04-29 13:00] LABS: Bacteria 0 SEEN /hpf (None Seen); Mucous, Urine 0 SEEN /hpf (<or=2+); Red Blood Cells-Urine 0 SEEN /hpf (0-5)
[2022-04-29 13:03] LABS: Color, Urine Yellow (Yellow); Glucose, Dipstick Normal (Normal); Ketone-Dipstick 5 mg/dl (Negative); Leukocyte Esterase-Dipstick 100 /ul (Negative); Nitrite-Dipstick Negative (Negative); Occult Blood-Urine Negative /ul (Negative); Protein-Dipstick 30 mg/dl (Negative); Urine Clarity Sl. Cloudy (Clear); Urine Urobilinogen Normal (Normal)
[2022-04-29 13:04] LABS: Urine Bilirubin Dipstick 1 mg/dL (Negative)
--- NOTE | 2022-04-29 13:07 | CT_ITS ---
STUDY: CTA HEAD AND NECK WITH CONTRAST REASON FOR EXAM: Female, 72 years old. Neuro deficit, acute, stroke suspected RADIATION DOSAGE (If Supplied By Facility): CTDIvol = ( 19.64 ) mGy, DLP = ( 687.99 ) mGycm TECHNIQUE: CT angiography was performed with a multi-detector CT scanner. Data acquisition was obtained from the skull base through the vertex following intravenous administration of IV 100mL [id number]. MIP images were reconstructed from the axial data set. Post-processing of the angiographic images was performed, with multiplanar reformation and 3D reconstruction. Individualized dose optimization techniques were used for this CT. COMPARISON: No relevant priors. FINDINGS: Normal bilateral petrous carotid arteries. Normal right cavernous carotid artery with a normal supraclinoid bifurcation. Normal left cavernous carotid artery with a normal supraclinoid bifurcation. Normal right A1 segments of the anterior cerebral artery. Normal left A1 segments of the anterior cerebral artery. Normal intact anterior communicating artery (ACOM). Normal bilateral A2 segments of the anterior cerebral arteries. Normal right M1 and M2 segments of the middle cerebral arteries, with a normal M1 bifurcation. Normal left M1 and M2 segments of the middle cerebral arteries, with a normal M1 bifurcation. Normal right posterior communicating artery (PCOM). Normal left posterior communicating artery (PCOM). Normal bilateral vertebral arteries. Normal basilar artery with a normal basilar bifurcation. The visualized bilateral superior cerebellar (SCA) arteries are normal. Normal bilateral P1, P2 and visualized P3 segments of the posterior cerebral arteries. There is no demonstrated aneurysm of the augustine of [place]. There is no demonstrated abnormality of the visualized brain. AORTIC ARCH: There is atherosclerotic calcific plaque formation of the aortic arch and great vessels arising from the aortic arch, without a hemodynamically significant stenosis. There is a normal origin of the brachiocephalic, left common carotid, and left subclavian arteries. RIGHT CAROTID ARTERIES: Normal right common carotid artery (CCA). Normal right common carotid bulb. There is mild atherosclerotic plaque formation of the origin of the right internal carotid artery with less than 50% cross sectional diameter stenosis. Normal visualized cervical portion of the right internal carotid artery. Normal origin of the right external carotid artery (ECA). LEFT CAROTID ARTERIES: Normal left common carotid artery (CCA). Normal left common carotid bulb. Normal origin of the left internal carotid (ICA) artery without a hemodynamically significant stenosis. Normal visualized cervical portion of the left internal carotid artery. Normal origin of the left external carotid artery (ECA). VERTEBRAL ARTERIES: Normal bilateral vertebral arteries. CT/STROKE CTA Head AND Neck W/Con IMPRESSION: Calcific plaques at the origin of the right internal carotid artery with less than 50% narrowing. N.B. : The above Results were Read Back by Manfred Aaron MD to Dr Herbie MD, and understanding confirmed on 04/29/2022 13:49:30 (ET). Electronically Signed: Manfred Aaron MD at 13:50 EDT ,
[2022-04-29 13:13] LABS: Squamous Epithelial Cells - UA 0-5 SEEN /hpf (5-10); White Blood Cells 10-25 SEEN /hpf (0-5)
--- NOTE | 2022-04-29 13:18 | PCM.HP.STD ---
[facility] - General General Date of Admission: 04/29/22 Date of Service: 04/29/22 Chief Complaint: Slurred speech, dysarthria/language deficit for about 2 to 3 weeks. Leg weakness today. HPI Narrative YADIRA PEREZ, is a 72 F who was brought to ED for ongoing language deficit/slurred speech for past 3 weeks. Patient describes that she was not able to get the words out but mumbled sound. She cannot think of words. Today she was unable to speak at home for brief moment of time. Patient had bilateral lower extremity weakness which got better. She said she could not move her feet from the floor. Her baseline that she walks on walker but she takes time to move her steps and fumbles on walker few times as per . She is also depressed. She denies burning micturition or new urinary tract symptoms. No fever. No chest pain or shortness of breath. Patient had initial work-up in the ED and described in detail in assessment plan. [facility] Medical History Arthritis Carpal tunnel syndrome, right Depressive disorder Dyspnea on exertion Hot flashes Hypertension Lupus Migraine headache Osteoarthritis Osteoporosis SLE (systemic lupus erythematosus related syndrome) Stress incontinence in female Vaginal ulcer Home Medications ferrous fumarate 324 mg (106 mg iron) tablet 325 mg PO DAILY 11/26/15 [History Last Taken Unknown] hydrochlorothiazide 25 mg tablet 25 mg PO DAILY bp 11/26/15 [History Last Taken Unknown] ibandronate 150 mg tablet 150 mg PO Q30D 11/26/15 [History Last Taken Unknown] propranolol 40 mg tablet 40 mg PO BID bp 11/26/15 [History Last Taken 10/20/18 40 MG] amoxicillin 500 mg tablet 2,000 mg PO ONCE 04/07/22 [History Last Taken Unknown] calcium carbonate 500 mg-vitamin D3 10 mcg (400 unit) tablet 1 tab PO TID 04/07/22 [History Last Taken Unknown] cholecalciferol (vitamin D3) 25 mcg (1,000 unit) tablet 2,000 unit PO DAILY 04/07/22 [History Last Taken Unknown] duloxetine 30 mg capsule,delayed release 60 mg PO BID 04/07/22 [History Last Taken Unknown] folic acid 1 mg tablet 1 mg PO BID 04/07/22 [History Last Taken Unknown] hydroxychloroquine 200 mg tablet (Plaquenil) 200 mg PO BID 04/07/22 [History Last Taken Unknown] loratadine 10 mg tablet (Allergy Relief (loratadine)) 10 mg PO DAILY PRN allergic symptoms 04/07/22 [History Last Taken Unknown] methotrexate sodium 2.5 mg tablet 15 mg PO QWEEK 04/07/22 [History Last Taken Unknown] potassium chloride 10 mEq tablet,extended release(part/cryst) 10 meq PO BID 04/07/22 [History Last Taken Unknown] prednisone 10 mg tablet 10 mg PO DAILY PRN Pain 04/07/22 [History Last Taken Unknown] topiramate 25 mg sprinkle capsule 25 mg PO DAILY 04/07/22 [History Last Taken Unknown] Allergy/AdvReac Type Severity Reaction Status Date / Time codeine Allergy Rash Verified 04/29/22 11:07 Family History Sister Lupus Mother CVA (cerebral vascular accident) Heart disease Hypertension Father Heart disease Hypertension Brother Heart disease Sister Diabetes Surgical History H/O dilation and curettage H/O tubal ligation History of hernia surgery History of hip surgery History of tonsillectomy Social History adopted: No household members: spouse housing: house number of children: 1 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 status: retired 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 No fever HEENT: Chronic vertigo, intermittent for 3 years reports systems reviewed and no addt'l complaints, except as documented Respiratory/Chest: Denies chest pain, shortness of breath at rest or with exertion Gastrointestinal: Denies coffee ground emesis, hematemesis or vomiting. Genitourinary: Denies burning urination or new urinary tract symptoms Musculoskeletal: SLE history. Multiple intermittent arthralgia. Neurologic: Denies seizure-like activity. Rest as described in HPI Psychiatric: Depressed mood. Anxiety. skin: No ulcer. No rash Endocrinology: Reports systems reviewed and no addt'l complaints, except as documented Hematologic/Lymphatic: Reports systems reviewed and no addt'l complaints, except as documented Rest 14 ROS are negative except as mentioned in HPI Vital Signs Vital Signs Vital Signs: 04/29/22 11:07 04/29/22 12:02 04/29/22 12:02 Temperature 97.2 F L Temperature Source Temporal Pulse Rate 55 L 53 L Respiratory Rate 14 Respiratory Effort Normal Non-Labored Respiratory Pattern Normal Blood Pressure 141/67 H 112/75 Blood Pressure Mean 91 87 Pulse Ox 97 Oxygen Delivery Method Room Air Weight Weight: 185 lb Body Mass Index (BMI) 30.7 Physical Exam Narrative Physical exam General: Alert, Oriented x3, Cooperative HEENT: Atraumatic, PERRLA, EOMI, Normocephalic Oral: No Gingival or Mucosal Lesions/ Ulcerations Neck: Supple, No JVD, Negative Carotid Bruits Lungs: Air entry diminished in bilateral lung bases. No crepitation/rhonchi Cardiovascular: Regular rate, Regular Rhythm, Normal S1, Normal S2, No murmurs Abdomen: Bowel Sounds Present, Soft, Non Tender, Non-Distended : No renal angle tenderness. No suprapubic tenderness. Extremities: No edema, Capillary Refill Less than 3 Seconds Skin: No rashes, No breakdown Musculoskeletal: No Tenderness to Palpation of Joints or Extremities. ROM slightly limited. Neurological: Cranial nerves II-XII grossly intact, DTR 2+/4, muscle strength 4/5 at major joints, right leg more than left leg. Psych/Mental Status: Flat affect. Takes time to answer questions Results Lab / Micro Data Result Diagrams: 04/29/22 12:00 04/29/22 12:00 Labs: Laboratory Results - last 24 hr 04/29/22 12:00: WBC 8.5, RBC 3.64 L, Hgb 12.2, Hct 36.6 L, MCV 100.5 H, MCH 33.5 H, MCHC 33.3, RDW Std Deviation 46.2 H, RDW Coeff of Eduardo 12.5, Plt Count 320, MPV 10.5, Immature Gran % (Auto) 0.400, Neut % (Auto) 70.0, Lymph % (Auto) 22.0, Lowndes % (Auto) 7.0, Eos % (Auto) 0.2, Baso % (Auto) 0.4, Absolute Neuts (auto) 6.0, Absolute Lymphs (auto) 1.88, Nucleated RBC % 0 04/29/22 12:00: PT 13.0, INR 1.0, APTT 26.3 04/29/22 12:00: Sodium 142, Potassium 3.2 L, Chloride 107, Carbon Dioxide 30.0, Anion Gap 5, BUN 17, Creatinine 1.02, Estim Creat Clear Calc 44.86, Est GFR (MDRD) Af Amer 69, Est GFR (MDRD) Non-Af 57 L, BUN/Creatinine Ratio 16.7, Glucose 86, Calcium 8.9, Total Bilirubin 0.60, AST 21, ALT 25, Alkaline Phosphatase 43 L, Troponin I High Sens 8, Total Protein 6.3 L, Albumin 3.1 L, Globulin 3.2, Albumin/Globulin Ratio 1.0 04/29/22 12:00: Lactic Acid 0.9 04/29/22 12:40: Urine Color Yellow, Urine Clarity Sl. Cloudy, Urine pH 7.0, Ur Specific Leo 1.010, Urine Protein 30 H, Urine Glucose (UA) Normal, Urine Ketones 5 H, Urine Occult Blood Negative, Urine Nitrite Negative, Urine Bilirubin 1 H, Urine Urobilinogen Normal, Ur Leukocyte Esterase 100 H, Urine RBC 0 SEEN, Urine WBC 10-25 SEEN, Ur Squamous Epith Cells 0-5 SEEN, Urine Bacteria 0 SEEN, Urine Mucus 0 SEEN Radiology Impression Brain CT 04/29/22 11:55 IMPRESSION: 1. Chronic involutional changes of the brain. Electronically Signed: Nemesio Patel MD at 12:40 EDT Reading Location ID and State: [address] [place] [address] , Service support , Chest X-Ray 04/29/22 12:24 IMPRESSION: Degenerative changes, as described above. No demonstrated acute cardiopulmonary process. Electronically Signed: Nemesio Patel MD at 12:42 EDT , Assessment & Plan Assessment/Plan (1) Brain TIA: PLAN: Plan This 72-year-old female is being admitted for further work-up of TIA/stroke. She has 3 weeks of mild language deficit/dysarthria and weakness of both legs today. 1. Possible TIA: Patient is being admitted in PCU. Twelve-lead EKG ordered. CT head does not show acute change. Head and neck CTA shows calcific plaque at origin of right ICA less than 50%. MRI brain and 2D echo ordered. Stroke protocol followed with serial NIH stroke scale, PT OT and speech therapy evaluation, BP and glucose monitoring. BP and glucose are elicitable limit. Patient does not have new urinary tract symptoms including burning micturition. UA shows LE 100, WBC 10-25 cells but negative nitrite, 0 bacteria. Urine culture pending. Does not need empiric antibiotics. Mild hypokalemia: Serum magnesium and phosphorus level normal. Potassium 3.2 getting replaced. 2. Hypertension: Blood pressure elicitable limit. Keep BP as per stroke protocol for permissive hypertension. 3. Rheumatological disease: SLE, carpal tunnel right side, osteoarthritis and osteoporosis: Patient on calcium and vitamin D, continued. Hold ibandronate but continue hydroxychloroquine, methotrexate, prednisone and folic acid supplement. 4. Migraine headache, anxiety and depression: Home medications continued. Patient on propranolol and propranolol. On duloxetine. 5. VT prophylaxis: Enoxaparin 40 subcu daily. Living will/advanced directive/end of life care: Patient does not have living will or advanced directive. His is next of kin sitting near the bedside. After prolonged discussion of benefits/risks procedures involved with full code, DNR CC arrest and DNR CC, the patient and her could not make decision but wanted full code for now. Patient does want artificial life support including intubation, tube feed, ventilator and/chest compression, central venous catheter, vasopressor and DC shock if needed Total time spent in [id number] encounter in discussion of advanced directive 16 minutes. Laboratory Results 04/29/22 12:00: WBC 8.5, RBC 3.64 L, Hgb 12.2, Hct 36.6 L, MCV 100.5 H, MCH 33.5 H, MCHC 33.3, RDW Std Deviation 46.2 H, RDW Coeff of Eduardo 12.5, Plt Count 320, MPV 10.5, Immature Gran % (Auto) 0.400, Neut % (Auto) 70.0, Lymph % (Auto) 22.0, Lowndes % (Auto) 7.0, Eos % (Auto) 0.2, Baso % (Auto) 0.4, Absolute Neuts (auto) 6.0, Absolute Lymphs (auto) 1.88, Nucleated RBC % 0 04/29/22 12:00: PT 13.0, INR 1.0, APTT 26.3 04/29/22 12:00: Sodium 142, Potassium 3.2 L, Chloride 107, Carbon Dioxide 30.0, Anion Gap 5, BUN 17, Creatinine 1.02, Estim Creat Clear Calc 44.86, Est GFR (MDRD) Af Amer 69, Est GFR (MDRD) Non-Af 57 L, BUN/Creatinine Ratio 16.7, Glucose 86, Calcium 8.9, Total Bilirubin 0.60, AST 21, ALT 25, Alkaline Phosphatase 43 L, Troponin I High Sens 8, Total Protein 6.3 L, Albumin 3.1 L, Globulin 3.2, Albumin/Globulin Ratio 1.0 04/29/22 12:00: Lactic Acid 0.9 04/29/22 12:00: Phosphorus 2.9, Magnesium 2.2 04/29/22 12:40: Urine Color Yellow, Urine Clarity Sl. Cloudy, Urine pH 7.0, Ur Specific Leo 1.010, Urine Protein 30 H, Urine Glucose (UA) Normal, Urine Ketones 5 H, Urine Occult Blood Negative, Urine Nitrite Negative, Urine Bilirubin 1 H, Urine Urobilinogen Normal, Ur Leukocyte Esterase 100 H, Urine RBC 0 SEEN, Urine WBC 10-25 SEEN, Ur Squamous Epith Cells 0-5 SEEN, Urine Bacteria 0 SEEN, Urine Mucus 0 SEEN Clinical Impression(s) from Imaging Studies Brain CT 04/29/22 11:55 IMPRESSION: 1. Chronic involutional changes of the brain. Electronically Signed: Nemesio Patel MD at 12:40 EDT Reading Location ID and State: [facility] / [place] , Service support , Chest X-Ray 04/29/22 12:24 IMPRESSION: Degenerative changes, as described above. No demonstrated acute cardiopulmonary process. Head/Neck CTA 04/29/22 13:07 IMPRESSION: Calcific plaques at the origin of the right internal carotid artery with less than 50% narrowing. Charges/Coding Visit Charges OBSV E&M: 50275 Initial observation care L3 Procedures Hospitalists Procedures: 70671 Advncd Care Plan 30 Min
[2022-04-29] MEDS: Cephalexin 250 MG Capsule 500 MG PO (13:29)
--- NOTE | 2022-04-29 14:00 | ECHOD_ITS ---
Reason For Study: TIA/CVA Procedure This was a 2D Doppler, Color Flow transthoracic echocardiogram. The exam was of adequate technical quality. Exam performed portable in patient room. Left Ventricle Normal LV size. Left ventricular systolic function is normal. The estimated ejection fraction is 65 %. No evidence for diastolic dysfunction. No regional wall motion abnormalities noted. Right Ventricle Normal RV size. Normal systolic function. Atria Normal left atrium. Normal right atrium. No doppler evidence for ASD. Bubble contrast study negative for right to left interatrial shunt. Mitral Valve There is no mitral annular calcification. Normal mitral valve. Trivial mitral valve insufficiency. Tricuspid Valve Normal tricuspid valve. Trivial tricuspid valve insufficiency. Unable to estimate RV systolic pressure due to insufficient tricuspid regurgitant envelope. Aortic Valve Trisinus/trileaflet aortic valve. Normal aortic valve. Trivial aortic valve insufficiency. Pulmonic Valve The pulmonic valve is not well visualized. Great Vessels Normal sized aortic root. Pericardium/Pleural No pericardial effusion. Epicardial fat. Medication Performed a rapid injection of agitated mix of 9 cc saline and 1cc air to assess for atrial septal defect. MMode/2D Measurements & Calculations LVIDd: 4.5 cm IVSd: 1.3 cm Ao root diam: 3.1 cm LVIDs: 3.1 cm LVPWd: 0.89 cm LA dimension: 4.2 cm FS: 30.7 % LAV(MOD-bp): 49.6 ml LA A4 area: 16.8 cm2 RA A4 area: 13.3 cm2 LAV(MOD-bp) Indexed: 25.8 ml/m2 LAV(MOD-sp2): 52.7 ml LAV(MOD-sp4): 41.5 ml Time Measurements MV dec time: 0.22 sec Doppler Measurements & Calculations MV E max satinder: 74.7 cm/sec Lat Peak E' Satinder: 7.5 cm/sec Med Peak E' Satinder: 8.9 cm/sec MV A max satinder: 80.5 cm/sec E/E' lat: 10.0 E/E' med: 8.4 MV E/A: 0.93 MV V2 max: 83.9 cm/sec MV P1/2t max satinder: 72.8 cm/sec Ao V2 max: 136.8 cm/sec MV max P.8 mmHg MV P1/2t: 65.4 msec Ao max P.5 mmHg MV V2 mean: 43.7 cm/sec MV dec slope: 325.7 cm/sec2 Ao V2 mean: 88.1 cm/sec MV mean P.93 mmHg Ao mean P.6 mmHg MV V2 VTI: 30.5 cm MVA(P1/2t): 3.4 cm2 Ao V2 VTI: 35.4 cm AI max satinder: 390.2 cm/sec LV V1 max: 124.5 cm/sec PA V2 max: 114.8 cm/sec AI max P.9 mmHg LV V1 max P.2 mmHg PA V2 mean: 75.9 cm/sec AI dec slope: 151.3 cm/sec2 LV V1 mean P.7 mmHg AI P1/2t: 755.6 msec LV V1 mean: 76.3 cm/sec LV V1 VTI: 30.4 cm ECHO/Echo Complete Interpretation Summary Left ventricular systolic function is normal. The estimated ejection fraction is 65 %. Trivial mitral valve insufficiency. Trivial tricuspid valve insufficiency. Trivial aortic valve insufficiency. Epicardial fat. Unable to estimate RV systolic pressure due to insufficient tricuspid regurgita nt envelope. No evidence for diastolic dysfunction. Bubble contrast study negative for right to left interatrial shunt. Ordering Physician: Raudel Stoner Referring Physician: Carl Bourgeois Performed By: Jesus Zuñiga RCS
[2022-04-29 14:11] LABS: Magnesium 2.2 mg/dL (1.6-2.6); Phosphorus 2.9 mg/dL (2.5-4.9)
--- NOTE | 2022-04-29 14:59 | EKG12_ITS ---
Test Reason : cp Blood Pressure : / mmHG Vent. Rate : 054 BPM Atrial Rate : 054 BPM P-R Int : 138 ms QRS Dur : 084 ms QT Int : 470 ms P-R-T Axes : 006 076 022 degrees QTc Int : 445 ms Poor data quality, interpretation may be adversely affected Sinus bradycardia Otherwise normal ECG When compared with ECG of 26-NOV-2015 14:49, Questionable change in QRS axis Confirmed by TORRES NAZARIO, HILARY ([id number]), continuity editor JUDITH FRANKLIN ([id number]) on 05/01/2022 8:18:08 AM Referred By: Herbie Confirmed By:SUMAYA MACDONALD MD
[2022-04-29] MEDS: Potassium Chloride Oral Tablet 20 MEQ 40 MEQ PO ×2 (15:01→16:40)
[2022-04-29] MEDS: 0.9% Normal Saline 1,000 ML 75 ML IV (15:01)
[2022-04-29] MEDS: Aspirin E.C. 81 MG Tablet PO (15:04)
[2022-04-29] MEDS: Folic Acid 1 MG Tablet PO (16:40)
[2022-04-29] MEDS: Hydroxychloroquine 200 MG Tablet PO (16:40)
[2022-04-29] MEDS: Calcium Carb/Vitamin D 1 TABLET Tablet PO (16:40)
[2022-04-29] MEDS: Atorvastatin Calcium 40 MG Tablet PO (21:23)
[2022-04-29] MEDS: DULoxetine Hcl 60 MG Capsule PO (21:23)
[2022-04-29] MEDS: Topiramate 25 MG Tablet PO (21:23)
[2022-04-30] VITALS (8 sets, daily range): BP systolic 106–139; BP diastolic 56–79; PULSE 55–63; RESP 14–16; TEMP 36.2–37; O2SAT 96–100; BMI 30.3
[2022-04-30 07:17] LABS: Anion Gap 3 (5-15); BUN 15 mg/dL (7-18); BUN/Creat Ratio 14.3 RATIO (10-20); Calcium,Total 8.6 mg/dL (8.5-10.1); Chloride 115 mmol/L (98-107); Cholesterol 150 mg/dL (200); Creatinine, Serum 1.05 mg/dL (0.55-1.02); EST Glomerular Filtration Rate 55 mL/min (>60); Est Glom Filt Rate - Afr Amer 66 mL/min (>60); Estimated Creatinine Clearance 45.34 ml/min; Glucose 90 mg/dL (74-106); High Density Lipoprotein 56 mg/dL; Potassium 3.6 mmol/L (3.5-5.1); Sodium Level 147 mmol/L (136-145); Thyroid Stim Hormone (TSH) 3.39 uIU/mL (0.358-3.74); Triglycerides 99 mg/dL; Very Low Density Lipoprotein 20 mg/dL (5-40)
[2022-04-30] MEDS: Potassium Chloride Oral Tablet 20 MEQ 40 MEQ PO (08:53)
[2022-04-30] MEDS: Folic Acid 1 MG Tablet PO (08:53)
[2022-04-30] MEDS: Aspirin E.C. 81 MG Tablet PO (08:53)
[2022-04-30] MEDS: Calcium Carb/Vitamin D 1 TABLET Tablet PO ×2 (08:53→12:09)
[2022-04-30] MEDS: DULoxetine Hcl 60 MG Capsule PO (08:54)
[2022-04-30] MEDS: Hydroxychloroquine 200 MG Tablet PO (08:54)
[2022-04-30] MEDS: Cholecalciferol (VIT D3) 25 MCG TABLET (1,000 UNITS) 50 MCG PO (08:54)
[2022-04-30] MEDS: Enoxaparin 40 MG/0.4 ML Syringe SC (08:54)
--- NOTE | 2022-04-30 09:00 | MRI_ITS ---
HISTORY: CVA. TECHNIQUE: Multiplanar and multisequence MR images of the brain were obtained without contrast. 340 images. COMPARISON: CT prior day, MR 09/12/2018. FINDINGS: BRAIN PARENCHYMA: Multiple foci and small zones of increased T2 FLAIR signal in the bilateral cerebral white matter mildly progressed from prior. No abnormal focus of restricted diffusion. No acute intracranial hemorrhage identified. CSF SPACES: Mild generalized volume loss. No significant midline shift or other mass effect.No extra-axial fluid collection. VASCULAR SYSTEM: Major intracranial flow voids are maintained. PARANASAL SINUSES AND MASTOID AIR CELLS: Small right maxillary sinus mucous retention cyst. ORBITS: Symmetric contents. MRI/Brain without Contrast IMPRESSION: No evidence for acute infarct. Chronic involutional and white matter changes. Electronically Signed: Hanna Marquez MD at 11:19 EDT ,
[2022-04-30] MEDS: FLU VACC QS2022-23(6MOS UP)/PF 60 MCG/0.5 ML SYRINGE IM (12:05)
[2022-04-30] MEDS: Ferrous Sulfate 325 MG Tablet PO (12:08)
--- NOTE | 2022-04-30 12:30 | DCINST_ITS ---
Discharge Instructions Diet Discharge Diet: No restrictions Activity Discharge Activity: Return to Normal Activity Weight Bearing Status: Full weight bearing Follow Up Care Test Results: Test results from this visit will be discussed in further detail at your follow- up appointment, if applicable. Discharge Plan Admission Admit Date/Time: 04/29/22 13:00 Primary Reason for Your Visit: Dysarthria, leg weakness Attending Provider: Carl Olivo Primary Care Provider: Carl Bourgeois Consulting Providers: Raudel Stoner Discharge Orders/Prescriptions Prescriptions: Continued folic acid 1 mg tablet 1 mg PO BID methotrexate sodium 2.5 mg tablet 15 mg PO QWEEK amoxicillin 500 mg tablet 2,000 mg PO ONCE Rx Instructions: prior to dentist appt hydroxychloroquine [Plaquenil] 200 mg tablet 200 mg PO BID calcium carbonate-vitamin D3 500 mg-10 mcg (400 unit) tablet 1 tab PO TID loratadine [Allergy Relief (loratadine)] 10 mg tablet 10 mg PO DAILY PRN (Reason: allergic symptoms) potassium chloride 10 mEq tablet,ER particles/crystals 10 meq PO BID prednisone 10 mg tablet 10 mg PO DAILY PRN (Reason: fibromyalgia pain) topiramate 25 mg capsule, sprinkle 25 mg PO DAILY propranolol 40 MG tablet 40 mg PO BID Label Comments: heart/blood pressure hydrochlorothiazide 25 MG tablet 25 mg PO DAILY Label Comments: blood pressure ferrous fumarate 324 MG tablet 325 mg PO DAILY Label Comments: supplement ibandronate 150 MG tablet 150 mg PO Q30D Label Comments: osteoporosis duloxetine 30 mg capsule,delayed release(DR/EC) 60 mg PO BID Label Comments: mood cholecalciferol (vitamin D3) 25 mcg (1,000 unit) tablet 2,000 unit PO DAILY Label Comments: supplement Referrals / Follow Up: Carl Bourgeois DO [Primary Care Provider] - Within 2 Weeks Hoang Ugarte MD [Non-Staff -Ordering Privileges] - See Referral Note (At your scheduled appointment time) Disposition Disposition (needs filled in before D/C Order can be placed): Home, Self Care
--- NOTE | 2022-04-30 13:17 | CASEMGMT ---
Speech is recommending OP speech at discharge and pt is agreeable to [facility]. Script faxed to [facility] and original to pt. Pt declines need for PT/OT script as she already has it set up with Dr. Johnson. Pt voices no further questions/concerns/needs. Slime RN CM
--- NOTE | 2022-04-30 15:28 | NURSING ---
Charting reviewed with Shanta Chang RN
--- NOTE | 2022-04-30 18:41 | DS.PCM_ITS ---
Providers Date of Admission: 04/29/22 Date of Discharge: 04/30/22 Primary Care Physician: Dr. Carl Bourgeois DO Reason For Visit: APHASIA / LANGUAGE / TIA Diagnosis Discharge Diagnosis (1) Brain TIA: Status: Acute Code(s): G45.9 - Transient cerebral ischemic attack, unspecified Plan 1. Dysarthria-etiology unclear #2 hypokalemia #3 essential hypertension #4 chronic anxiety/depression #5 SLE This examiner did not feel the patient had a TIA Medications at Discharge Home Medications ferrous fumarate 324 mg (106 mg iron) tablet 325 mg PO DAILY supplement 11/26/15 hydrochlorothiazide 25 mg tablet 25 mg PO DAILY bp 11/26/15 ibandronate 150 mg tablet 150 mg PO Q30D bone health 11/26/15 propranolol 40 mg tablet 40 mg PO BID bp 11/26/15 amoxicillin 500 mg tablet 2,000 mg PO ONCE infection 04/07/22 calcium carbonate 500 mg-vitamin D3 10 mcg (400 unit) tablet 1 tab PO TID vitamin 04/07/22 cholecalciferol (vitamin D3) 25 mcg (1,000 unit) tablet 2,000 unit PO DAILY vitamin 04/07/22 duloxetine 30 mg capsule,delayed release 60 mg PO BID mental health 04/07/22 folic acid 1 mg tablet 1 mg PO BID supplement 04/07/22 hydroxychloroquine 200 mg tablet (Plaquenil) 200 mg PO BID inflammation 04/07/22 loratadine 10 mg tablet (Allergy Relief (loratadine)) 10 mg PO DAILY PRN allergic symptoms 04/07/22 methotrexate sodium 2.5 mg tablet 15 mg PO QWEEK inflammation 04/07/22 potassium chloride 10 mEq tablet,extended release(part/cryst) 10 meq PO BID supplement 04/07/22 prednisone 10 mg tablet 10 mg PO DAILY PRN fibromyalgia pain 04/07/22 topiramate 25 mg sprinkle capsule 25 mg PO DAILY seizures 04/07/22 Hospital Course Operations None Procedures 2-D Echocardiogram Summary of Care Provided Minutes Spent on Discharge: 30 Hospital Course: 72-year-old white female seen in the emergency room with complaints of slurred speech and intermittent aphasia x2 to 3 weeks. Patient stated that she was having a hard time forming sentences. The morning she was seen in the emergency room, she stated she was unable to speak for a brief amount of time. Patient was scheduled to have physical therapy performed as an outpatient-this was due to be ordered by her pain management doctor. Work-up in the emergency room included a CTA of the head and neck as well as a CT of the brain, no acute abnormalities were noted, no significant vascular stenosis was noted. Patient's labs showed a slightly low potassium. Patient was placed in observation status on PCU, she was seen by PT, OT, and speech therapy and she underwent an MRI of the brain which showed no evidence of an acute stroke. Patient's potassium was replaced. Echocardiogram was obtained which showed no evidence of an ASD. On 04/30/2022, patient was seen and examined: On examination she appeared in go od health and spirits, she does not appear to be in any distress. Vital signs as documented. Skin warm and dry and without overt rashes. Neck without JVD, thyroid appears normal, trachea is midline, neck is supple. Lungs clear, normal air movement was noted. Heart exam notable for regular rhythm, normal sounds and absence of murmurs, rubs or gallops. Abdomen unremarkable and without evidence of organomegaly, masses, or abdominal aortic enlargement, bowel sounds are present in all 4 quadrants, no abdominal tenderness was noted. Extremities nonedematous, no cyanosis was noted, no clubbing was noted. Neuro: Cranial nerves II through XII are grossly intact, no focal motor deficits were noted, s ensation to light touch and pinprick is intact, motor exam 5/5 throughout. Psych: Patient is alert and oriented x3, she does not appear anxious or depressed, she does not appear agitated. On 04/30/2022, patient appears stable for discharge home. She consented to have speech therapy set up for her but she wanted to have physical therapy set up by a neurologist who she has an upcoming appointment with to rule out MS.. Weight / BMI Weight Weight: 85.2 kg Body Mass Index (BMI) 30.3 ABG / Lab / Microbiology Data Result Diagrams: 04/29/22 12:00 04/30/22 05:50 Laboratory: Laboratory Results - last 24 hr 04/30/22 05:50: Sodium 147 H, Potassium 3.6, Chloride 115 H, Carbon Dioxide 29.0, Anion Gap 3 L, BUN 15, Creatinine 1.05 H, Estim Creat Clear Calc 45.34, Est GFR (MDRD) Af Amer 66, Est GFR (MDRD) Non-Af 55 L, BUN/Creatinine Ratio 14.3, Glucose 90, Calcium 8.6, Triglycerides 99, Cholesterol 150, LDL Cholesterol 74, VLDL Cholesterol 20, HDL Cholesterol 56, TSH 3.39 Microbiology: Microbiology 04/29/22 12:40 Urine, Clean Catch Urine Culture - Final Mixed Gram Pos & Gram Neg Org Radiography Diagnostic Testing: Radiology Impression Brain MRI 04/30/22 09:00 IMPRESSION: No evidence for acute infarct. Chronic involutional and white matter changes. Electronically Signed: Hanna Marquez MD at 11:19 EDT Reading Location ID and State: [facility] / [place] Tel , Service support , D/C Instructions Discharge Diet: No restrictions Weight Bearing Status: Full weight bearing Meaningful Use Info Meaningful Use Diagnoses (Choose all that apply): None applicable Discharge Plan Admission Admit Date/Time: 04/29/22 13:00 Primary Reason for Your Visit: Dysarthria, leg weakness Attending Provider: Carl Olivo Primary Care Provider: Carl Bourgeois Consulting Providers: Raudel Stoner Discharge Orders/Prescriptions Prescriptions: Continued folic acid 1 mg tablet 1 mg PO BID methotrexate sodium 2.5 mg tablet 15 mg PO QWEEK amoxicillin 500 mg tablet 2,000 mg PO ONCE Rx Instructions: prior to dentist appt hydroxychloroquine [Plaquenil] 200 mg tablet 200 mg PO BID calcium carbonate-vitamin D3 500 mg-10 mcg (400 unit) tablet 1 tab PO TID loratadine [Allergy Relief (loratadine)] 10 mg tablet 10 mg PO DAILY PRN (Reason: allergic symptoms) potassium chloride 10 mEq tablet,ER particles/crystals 10 meq PO BID prednisone 10 mg tablet 10 mg PO DAILY PRN (Reason: fibromyalgia pain) topiramate 25 mg capsule, sprinkle 25 mg PO DAILY propranolol 40 MG tablet 40 mg PO BID Label Comments: heart/blood pressure hydrochlorothiazide 25 MG tablet 25 mg PO DAILY Label Comments: blood pressure ferrous fumarate 324 MG tablet 325 mg PO DAILY Label Comments: supplement ibandronate 150 MG tablet 150 mg PO Q30D Label Comments: osteoporosis duloxetine 30 mg capsule,delayed release(DR/EC) 60 mg PO BID Label Comments: mood cholecalciferol (vitamin D3) 25 mcg (1,000 unit) tablet 2,000 unit PO DAILY Label Comments: supplement Referrals / Follow Up: Carl Bourgeois DO [Primary Care Provider] - Within 2 Weeks Hoang Ugarte MD [Non-Staff -Ordering Privileges] - See Referral Note (At your scheduled appointment time) Disposition Disposition (needs filled in before D/C Order can be placed): Home, Self Care Charges/Coding Visit Charges OBSV E&M: 14136 Observation care discharge
== END 2022-04-30 12:39 | disposition home or self-care (01) ==
LOC: ED 13:10 → PCU 13:43
PROVIDERS: Admitting Provider Internal Medicine; Emergency Provider Emergency Medicine; PCP Family Medicine; Visit Provider Internal Medicine
DX: R47.1 Dysarthria and anarthria (principal); M32.9 Systemic lupus erythematosus, unspecified; M62.81 Muscle weakness (generalized); E87.6 Hypokalemia; Z79.52 Long term (current) use of systemic steroids; R47.81 Slurred speech; I10 Essential (primary) hypertension; F32.A Depression, unspecified; R47.01 Aphasia; M19.90 Unspecified osteoarthritis, unspecified site; Z79.899 Other long term (current) drug therapy; Z23 Encounter for immunization; R06.09 Other forms of dyspnea; R00.1 Bradycardia, unspecified; R53.1 Weakness; R53.81 Other malaise; R42 Dizziness and giddiness
CPT/HCPCS: 36415; 70450; 70496; 70498; 70551; 71045; 80048; 80053; 80061; 81001; 83605; 83735; 84100; 84443; 84484; 85025; 85610; 85730; 87086; 87088; 92523; 93005; 93306; 96360; 96361; 96372; 97162; 97167; 99218; 99251; 99285; J7030; Q9967; 90686; A4216; G0378; G0463

== ENCOUNTER → 2022-05-07 | Outpatient (CLI) | payer MEDICARE, OTHER, SELFPAY ==
[2022-05-07 15:23] LABS: Absolute Lymphocyte Count 1.31 X10^3/uL (0.83-4.51); Absolute Neutrophil Count 3.7 X10^3/uL (2.0-7.7); Basophil# 0.04 X10^3/uL; Basophil% 0.7 % (0-1); Eosinophil# 0.09 X10^3/uL; Eosinophils% 1.6 % (0-5); Hematocrit 36.5 % (37-47); Lymphocyte # 1.31 X10^3/ul (0.83-4.51); Lymphocyte % 23.1 % (19-41); Mean Corp Hgb Conc 32.9 g/dL (32-36); Mean Corpuscular Hgb 33.1 pg (27.0-32.0); Mean Corpuscular Volume 100.6 fL (81-99); Monocyte# 0.49 X10^3/uL; Monocyte% 8.6 % (0-10); NRBC Flagged by Analyzer 0 % (0-5); Neutrophil # 3.73 X10^3/uL (2.7-7.7); Neutrophil % 65.6 % (47-70); Platelet Count 339 K/mm3 (150-450); RBC Distribution Width CV 12.7 % (11.6-14.6); RBC Distribution Width SD 46.1 fl (35.1-43.9); Red Blood Count 3.63 M/mm3 (4.2-5.4); White Blood Count 5.7 K/mm3 (4.4-11.0)
[2022-05-07 16:05] LABS: ALB/GLOB Ratio 1.1 RATIO (0.9-2.4); AST(SGOT) 26 U/L (15-37); Alanine Aminotransfer ALT/SGPT 30 U/L (13-56); Albumin, Serum 3.3 g/dL (3.2-5.0); Alkaline Phosphatase 53 U/L (45-117); Anion Gap 4 (5-15); BUN 17 mg/dL (7-18); BUN/Creat Ratio 16.8 RATIO (10-20); Chloride 105 mmol/L (98-107); Creatinine, Serum 1.01 mg/dL (0.55-1.02); EST Glomerular Filtration Rate 57 mL/min (>60); Est Glom Filt Rate - Afr Amer 69 mL/min (>60); Globulin 3.1 g/dL (2.2-4.2); Glucose 84 mg/dL (74-106); Potassium 3.5 mmol/L (3.5-5.1); Protein, Total 6.4 g/dL (6.4-8.2); Sodium Level 141 mmol/L (136-145)
== END | disposition home or self-care (01) ==
LOC: MTLAB 13:49
PROVIDERS: PCP Family Medicine; Referring Provider Internal Medicine Rheumatology; Visit Provider Internal Medicine Rheumatology
DX: M06.4 Inflammatory polyarthropathy (principal); Z79.899 Other long term (current) drug therapy; R76.8 Other specified abnormal immunological findings in serum; M79.7 Fibromyalgia; G43.909 Migraine, unspecified, not intractable, without status migrainosus; I10 Essential (primary) hypertension; F32.89 Other specified depressive episodes; M81.0 Age-related osteoporosis without current pathological fracture; N39.3 Stress incontinence (female) (male)
CPT/HCPCS: 36415; 80053; 85025

== ENCOUNTER 2022-05-19 10:00 | Outpatient (RCR) | payer MEDICARE, OTHER, SELFPAY ==
--- NOTE | 2022-05-19 15:50 | HP.SP.DC_ITS ---
ST Discharge Summary - Discharged: Discharge: Pt was seen for initial speech/language/cognitive evaluation at [facility] on 05/07/22 s/p slurred speech and weakness. Pt attended 1 additional session following initial evaluation to implementation of compensatory strategies. Per Pt, her speech difficulties were caused a medications and since discontinuing the medication, her speech has greatly improved. Following re-evaluation of Pt?s current level of cognitive/speech function, and self-report, Pt deemed appropriate for d/c from speech therapy at this time. Pt provided w/home compensatory strategies to aid communication if needed. Pt discharged from speech therapy caseload on this date, 05/19/22. Thank you for allowing me to participate in the care of your Pt. Will reevaluate at Pt?s request following script from physician.
--- NOTE | 2022-05-19 15:50 | HP.SP.EVAL ---
History - History Date of Eval: 05/07/22 Other Relevant Medical History/Diagnoses/Surgery: Shital is a 72 year old woman who was seen for a speech and language evaluation at [facility]. Pt went to the hospital last week with speech difficulties. A CVA was rule out and she will be undergoing neurological testing to determine the cause. MS is being considered. Pt stated she had a harder time with speaking in morning and when tired. She described her speech difficulties as talking slow, slurred words, harder to think of what to say. Pt was previously receiving OT at [facility]. Pt stated her speech has been better since the hospital and she is having a good day with her speech during this evaluation. Pt also noted concerns of cognitive changes. Smoking Status: Never smoker Hx Smoking: No Hx Tobacco Use: No - Pain Is pain an issue with your current prescribed condition?: No Patient Allergies - Allergies Allergies codeine Allergy (Verified 04/29/22 11:07) Rash CLQT - CLQT CLQT Administered: Yes CLQT: Cognitive Linguistic Quick Test (CLQT) is a criterion - referenced assessment designed for adults between the ages of 18 and 89 with known or suspected neurological dysfuntions. The CLQT is to assess strength and weaknesses in five cognitive domains. Severity ratings are within normal limits, mild, moderate, severe deficits. The subtests are as follows: Date: 05/07/22 - Attention Attention: Mild - Memory Memory: WNL - Executive Functions Executive Functions: WNL - Language Language: WNL - Visuospatial Skills Visuospatial Skills: WNL - Composite Severity Rating Composite Severity Rating: WNL - Clock Drawing Severity Rating Clock Drawing Severity Rating: WNL Subjective Dysarthria/Motor - Subjective Subjective: Pt stated her speech difficulties onset suddenly and she went to the hospital. She stated that she was slurring her words and that it was very laborsome to speak. The exact cause is unknown at this time, but CVA has been ruled out. Pt stated that she still slurs words, has trouble with pronunciation, and has trouble remembering words. Objective Dysarthira/Motor - Speech Intelligibility Phonemes: WNL Single Words: WNL Phrases: WNL Sentences: WNL Paragraphs: WNL Conversation: WNL - Volume Volume: WNL - Sounds Sounds in Error: Pt stubbled over 3 words during a paragraph reading. This did not impact her intelligibility. Pt had one mispronunciation error in conversation. Pt stated her speech during the evaluation was not an accurate representation of her speech in the morning or when she is tired. - Consistency w/Multiple Repetitions Words: WNL Phrases: WNL - Observation Observation of Apraxia of Speech: No Oral Groping for Placement: No Inconsistent Errors: No - Awareness/Strategy Use Uses strategies effectively and consistently to improve intelligibility or listener's understanding of message: Yes HDQLIFE - Speech Difficulties - In the past 7 days. It was difficult for other people to understand me.: Rarely Is was difficult to speak clearly?: Sometimes - In the past 7 days.. How often did you limit your social activites because you had difficulty speaking?: Never - In the past 7 days... I had trouble speaking.: Somewhat I was frustrated by my speech difficulties.: A little bit - How much DIFFICULTY do you have... ...saying what you want to say?: A little difficulty - Score HDQLIFE Speech Difficulties Raw Score: 13 HDQLIFE Speech Difficulties T - Score: 54 Plan - Plan Plan: Pt presents with mild dysarthria re: slurred speech, misarticulation, and slow rate of speech per patient report. These errors were not noted during the session. Pt reported that her speech issues worsen throughout the day as she fatigues. Pt would benefit from communication strategies and compensatory strategies to address mild speech errors re: over exaggerated articulation, syllable attack, reducing background noise, and slow rate of speech. Treatment is required to ensure proper implementation of these strategies. Without skilled intervention, Pt is at risk for difficulty communicating basic, medical, emergent, social wants & needs, and interacting with family/friends at home, during social interactions, and at work. - Recommendations Treatment Warranted: Yes Treatment Warranted: Speech Sound Production, Cognition - Progress Prognosis: Excellent - Frequency Frequency: Every Other Week Duration: 2-4 Months - Goals that are Established Determination:: Goals will be added/modified as deemed necessary and appropriate. Therapy will be discontinued when results of re-evaluation indicate therapy is no longer needed or lack of progress has been documented. - Goal #1-5 Goal #1: Pt will utilize strategies for dysarthria re: exaggerated pronunciation, slower rate of speech, syllable attack and modify her home environment to be conducive for communication re: reduce background noise within 3 weeks of the initial evaluation. Goal #2: Pt will participate in an ongoing speech and cognitive linguistic assessment to assess progress and monitor the plan of care. Education - Patient Instruction Patient Education: Diagnosis, Treatment Plan, Goals Person Taught: Patient Teaching Method: Discussion Response to teaching: Return demonstration, Verbalize understanding
== END 2022-05-19 19:00 | disposition home or self-care (01) ==
LOC: SP 10:00
PROVIDERS: PCP Family Medicine; Referring Provider Internal Medicine; Visit Provider Family Medicine
DX: R29.898 Other symptoms and signs involving the musculoskeletal system (principal); M06.4 Inflammatory polyarthropathy; R47.1 Dysarthria and anarthria
CPT/HCPCS: 92507; 92523

== ENCOUNTER → 2022-05-22 | Outpatient (CLI) | payer MEDICARE, OTHER, SELFPAY ==
--- NOTE | 2022-05-22 14:37 | MRI_ITS ---
STUDY: MRI CERVICAL SPINE WITH AND WITHOUT CONTRAST REASON FOR EXAM: Female, 72 years old. SPEECH ABNORMALITIES, OCCASIONAL DOUBLE VISION; CONCERN FOR MS -- BRAIN MRI HAS WHITE MATTER CHANGES TECHNIQUE: Standardized fat and water weighted pulse sequences were obtained in the sagittal and axial following administration of IV 17ml Clariscan. COMPARISON: MRI brain April 30, 2022 FINDINGS: Normal bone marrow signal. No fracture or acute deformity. Normal cervical spine alignment without listhesis. No aggressive osseous lesion. No prevertebral soft tissue thickening or edema. No posterior neck soft tissue edema. Nonspecific homogeneous 1.3 x 1.0 x 0.9 cm T2 hyperintense and T1 hypointense nonenhancing cystic structure at the base of the tongue. Unremarkable cervical ligamentous structures. Normal cord signal without myelomalacia, edema, or abnormal intra or extra medullary enhancing mass. No abnormal epidural fluid collection. C2-3: Normal endplates. Normal disc height, signal and morphology. Normal central canal and intervertebral neural foramina. C3-4: Slight posterior disc osteophyte complex with minimal spinal canal and bilateral neural foraminal narrowing. C4-5: Minimal posterior disc osteophyte complex without significant spinal canal or neural foramina narrowing. C5-6: Minimal posterior disc osteophyte complex without significant spinal canal or neural foramina narrowing. C6-7: Minimal posterior disc osteophyte complex without significant spinal canal or neural foramina narrowing. C7-T1: Normal endplates. Normal disc height, signal and morphology. Normal central canal and intervertebral neural foramina. MRI/Spine Cervical W/WO Contrast IMPRESSION: Normal cord signal. No evidence of cervical demyelinating process. Mild spondylosis for age. Homogeneous nonenhancing 1.3 cm cyst at the base of the tongue, commonly thyroglossal duct cyst. Electronically Signed: Oniel Puentes MD at 3:27 EST ,
== END | disposition home or self-care (01) ==
PROVIDERS: PCP Family Medicine; Visit Provider Family Medicine
DX: R47.9 Unspecified speech disturbances (principal); R20.2 Paresthesia of skin; R29.818 Other symptoms and signs involving the nervous system
CPT/HCPCS: 72156; A9575

== ENCOUNTER 2022-06-02 13:56 | Outpatient (CLI) | payer MEDICARE, OTHER, SELFPAY ==
--- NOTE | 2022-06-02 13:58 | BI_ITS ---
MAMMOGRAPHY - BILATERAL SCREENING REASON FOR EXAM: Female, 72 years old. Routine annual screening examination. PERTINENT HISTORY: Non-contributory. TECHNIQUE: Digital bilateral breast sarath (3D mammographic acquisition) in the CC and MLO projections. 2-D mediolateral oblique (MLO) and craniocaudad (CC) views of both breasts were obtained. CAD: Full Field Digital Mammography with Computer Added Detection was performed. COMPARISON: Comparison is made with prior study 04/17/2021 and 03/19/2020. FINDINGS: Breast Composition: There are scattered areas of fibroglandular density. There are no dominant masses or suspicious calcifications. Stable fat-containing bilateral axillary lymph nodes. No other significant abnormalities are identified. There has been no significant change since the prior study. BI/SCRN MAMM (CAD)W/SARATH BILAT IMPRESSION: Stable bilateral screening mammogram. Yearly follow-up mammogram recommended. (A) ASSESSMENT CATEGORY: BIRADS Category 2: Benign. A letter regarding these results will be sent to the patient by the facility within 30 days. Approximately 10% of breast cancers are not detected by mammography. A normal mammogram should not delay biopsy of a clinically suspicious abnormality. [id number] Electronically Signed: Manfred Aaron MD at 15:39 EST ,
== END 2022-06-02 23:59 | disposition home or self-care (01) ==
LOC: OPBI 13:57
PROVIDERS: PCP Family Medicine; Visit Provider Family Medicine
DX: Z12.31 Encounter for screening mammogram for malignant neoplasm of breast (principal); M06.4 Inflammatory polyarthropathy; R29.898 Other symptoms and signs involving the musculoskeletal system
CPT/HCPCS: 77063; 77067; 97110

== ENCOUNTER → 2022-07-24 | Outpatient (CLI) | payer MEDICARE, OTHER, SELFPAY ==
--- NOTE | 2022-07-24 14:48 | MRI_ITS ---
MRI of thoracic spine INDICATION: Gait disorder inflammatory polyarthropathy TECHNIQUE: MRI of the thoracic spine was performed in the sagittal and axial projections utilizing T1-T2 and STIR imaging sequences. FINDINGS: Bony structures demonstrate slightly heterogeneous signal intensity due to scattered interosseous lipomatous deposits. 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 No evidence for acute fracture or subluxation. Disc space heights are well-maintained although there is multilevel disc degeneration. There are tiny central disc protrusions at T7-8 and T8-9 only mildly narrowing the central canal without cord compression. The cord in general is homogeneous signal intensity and normal in caliber. MRI/Spine Thoracic (Routine) IMPRESSION: No evidence for acute fracture or other significant bony pathology. Multilevel disc degeneration and tiny central disc protrusions at T7-8 and T8-9 without significant spinal stenosis Electronically Signed: Brodie Condon MD at 17:21 EST ,
== END | disposition home or self-care (01) ==
LOC: MRI 14:48
PROVIDERS: PCP Family Medicine; Referring Provider Psychiatry & Neurology Neurology; Visit Provider Psychiatry & Neurology Neurology
DX: M48.04 Spinal stenosis, thoracic region (principal); M06.4 Inflammatory polyarthropathy; M51.24 Other intervertebral disc displacement, thoracic region; M51.34 Other intervertebral disc degeneration, thoracic region; R26.9 Unspecified abnormalities of gait and mobility
CPT/HCPCS: 36415; 72146; 80053; 85025

== ENCOUNTER → 2022-07-24 | Outpatient (CLI) | payer MEDICARE, OTHER, SELFPAY ==
[2022-07-24 12:22] LABS: Absolute Lymphocyte Count 0.92 X10^3/uL (0.83-4.51); Absolute Neutrophil Count 3.1 X10^3/uL (2.0-7.7); Basophil# 0.06 X10^3/uL; Basophil% 1.3 % (0-1); Eosinophil# 0.07 X10^3/uL; Eosinophils% 1.5 % (0-5); Hematocrit 35.9 % (37-47); Hemoglobin 11.7 g/dL (12.0-15.0); Lymphocyte # 0.92 X10^3/ul (0.83-4.51); Lymphocyte % 19.6 % (19-41); Mean Corp Hgb Conc 32.6 g/dL (32-36); Mean Corpuscular Hgb 33.2 pg (27.0-32.0); Mean Platelet Vol. 10.9 fl (6.2-12.0); Monocyte# 0.52 X10^3/uL; Monocyte% 11.1 % (0-10); NRBC Flagged by Analyzer 0 % (0-5); Neutrophil # 3.11 X10^3/uL (2.7-7.7); Neutrophil % 66.1 % (47-70); Platelet Count 296 K/mm3 (150-450); RBC Distribution Width CV 12.2 % (11.6-14.6); RBC Distribution Width SD 44.8 fl (35.1-43.9); Red Blood Count 3.52 M/mm3 (4.2-5.4); White Blood Count 4.7 K/mm3 (4.4-11.0)
[2022-07-24 13:00] LABS: ALB/GLOB Ratio 1.2 RATIO (0.9-2.4); AST(SGOT) 22 U/L (15-37); Alanine Aminotransfer ALT/SGPT 23 U/L (13-56); Albumin, Serum 3.5 g/dL (3.2-5.0); Alkaline Phosphatase 50 U/L (45-117); Anion Gap 4 (5-15); BUN 12 mg/dL (7-18); BUN/Creat Ratio 13.3 RATIO (10-20); Chloride 102 mmol/L (98-107); EST Glomerular Filtration Rate 66 mL/min (>60); Est Glom Filt Rate - Afr Amer 79 mL/min (>60); Globulin 2.8 g/dL (2.2-4.2); Glucose 84 mg/dL (74-106); Potassium 3.6 mmol/L (3.5-5.1); Protein, Total 6.3 g/dL (6.4-8.2); Sodium Level 137 mmol/L (136-145)
== END | disposition home or self-care (01) ==
LOC: MTLAB 10:34
PROVIDERS: PCP Family Medicine; Referring Provider Internal Medicine Rheumatology; Visit Provider Internal Medicine Rheumatology
DX: Z79.899 Other long term (current) drug therapy (principal); M06.4 Inflammatory polyarthropathy; R76.8 Other specified abnormal immunological findings in serum; M79.7 Fibromyalgia; G43.909 Migraine, unspecified, not intractable, without status migrainosus; I10 Essential (primary) hypertension; F32.89 Other specified depressive episodes; M81.0 Age-related osteoporosis without current pathological fracture; N39.3 Stress incontinence (female) (male)
CPT/HCPCS: 36415; 80053; 85025

== ENCOUNTER → 2022-07-28 | Outpatient (CLI) | payer MEDICARE, OTHER, SELFPAY ==
[2022-07-28 10:18] LABS: Absolute Lymphocyte Count 0.83 X10^3/uL (0.83-4.51); Absolute Neutrophil Count 3.7 X10^3/uL (2.0-7.7); Basophil# 0.03 X10^3/uL; Basophil% 0.6 % (0-1); Eosinophil# 0.12 X10^3/uL; Eosinophils% 2.4 % (0-5); Lymphocyte # 0.83 X10^3/ul (0.83-4.51); Lymphocyte % 16.7 % (19-41); Mean Corp Hgb Conc 32.4 g/dL (32-36); Mean Corpuscular Hgb 32.7 pg (27.0-32.0); Mean Corpuscular Volume 100.8 fL (81-99); Mean Platelet Vol. 10.5 fl (6.2-12.0); Monocyte# 0.33 X10^3/uL; Monocyte% 6.6 % (0-10); NRBC Flagged by Analyzer 0 % (0-5); Neutrophil # 3.66 X10^3/uL (2.7-7.7); Neutrophil % 73.5 % (47-70); Platelet Count 295 K/mm3 (150-450); RBC Distribution Width CV 12.2 % (11.6-14.6); RBC Distribution Width SD 44.2 fl (35.1-43.9); Red Blood Count 3.67 M/mm3 (4.2-5.4)
[2022-07-28 10:48] LABS: Vitamin B12 277 pg/mL (211-911)
[2022-07-28 11:26] LABS: ALB/GLOB Ratio 1.2 RATIO (0.9-2.4); AST(SGOT) 24 U/L (15-37); Alanine Aminotransfer ALT/SGPT 25 U/L (13-56); Albumin, Serum 3.4 g/dL (3.2-5.0); Alkaline Phosphatase 45 U/L (45-117); Anion Gap 8 (5-15); BUN 14 mg/dL (7-18); BUN/Creat Ratio 14.8 RATIO (10-20); Calcium,Total 9.3 mg/dL (8.5-10.1); Chloride 103 mmol/L (98-107); Creatinine, Serum 0.94 mg/dL (0.55-1.02); EST Glomerular Filtration Rate 62 mL/min (>60); Est Glom Filt Rate - Afr Amer 75 mL/min (>60); Globulin 2.8 g/dL (2.2-4.2); Glucose 91 mg/dL (74-106); Potassium 3.8 mmol/L (3.5-5.1); Protein, Total 6.2 g/dL (6.4-8.2); Sodium Level 141 mmol/L (136-145); Thyroid Stim Hormone (TSH) 2.31 uIU/mL (0.358-3.74)
[2022-07-30 21:59] LABS: Vitamin B1, Thiamine 125.8 nmol/L (66.5-200.0)
== END | disposition home or self-care (01) ==
PROVIDERS: PCP Family Medicine; Referring Provider Psychiatry & Neurology Neurology; Visit Provider Psychiatry & Neurology Neurology
DX: G31.84 Mild cognitive impairment of uncertain or unknown etiology (principal); R26.89 Other abnormalities of gait and mobility
CPT/HCPCS: 36415; 80053; 82607; 82746; 84425; 84443; 85025

== ENCOUNTER → 2022-09-18 | Outpatient (CLI) | payer MEDICARE, OTHER, SELFPAY ==
[2022-09-18 15:21] LABS: Erythrocyte Sedimentation Rate 7 mm/hr (0-30)
== END | disposition home or self-care (01) ==
LOC: BFHLAB 13:04
PROVIDERS: PCP Family Medicine; Visit Provider Family Medicine
DX: R29.898 Other symptoms and signs involving the musculoskeletal system (principal)
CPT/HCPCS: 36415; 85652

== ENCOUNTER 2022-10-08 12:10 | Inpatient (IN) | payer MEDICARE, OTHER, SELFPAY ==
[2022-10-08] VITALS (7 sets, daily range): BP systolic 132–163; BP diastolic 61–94; PULSE 69–81; RESP 16–28; TEMP 35.9–38.6; O2SAT 94–98; BMI 30.3; BMI 30.7
--- NOTE | 2022-10-08 12:12 | NURSING ---
1202 STROKE ALERT CALLED PRIOR TO ARRIVAL
--- NOTE | 2022-10-08 12:14 | EKG12_ITS ---
Test Reason : STROKE TEAM Blood Pressure : / mmHG Vent. Rate : 079 BPM Atrial Rate : 079 BPM P-R Int : 160 ms QRS Dur : 086 ms QT Int : 386 ms P-R-T Axes : 057 002 097 degrees QTc Int : 442 ms Normal sinus rhythm Nonspecific ST and T wave abnormality Abnormal ECG Confirmed by MARTIR NAZARIO, DONATO ([id number]), acquisition editor YESSICA QUINTANILLA ([id number]) on 10/09/2022 10:52:26 AM Referred By: ASHLEY Confirmed By:DONATO MCMAHAN MD
--- NOTE | 2022-10-08 12:14 | CT_ITS ---
STUDY: CT HEAD STROKE PROTOCOL W/O CONTRAST INJECTION REASON FOR EXAM: Female, 72 years old. Neuro deficit, acute, stroke suspected RADIATION DOSAGE (If Supplied By Facility): CTDIvol = ( 44.99 ) mGy, DLP = ( 796.11 ) mGycm TECHNIQUE: Transaxial CT imaging of the brain was performed without administration of intravenous contrast material. Individualized dose optimization techniques were used for this CT. COMPARISON: Comparison is made with prior study dated April 29, 2022. FINDINGS: Normal soft tissue structures. There is hyperostosis frontalis internus. There is mild cerebral atrophy with widening of the extra-axial spaces and ventricular dilatation. There are areas of decreased attenuation within the white matter tracts of the supratentorial brain, consistent with microvascular disease changes. Focal atrophy in the right temporal lobe in keeping with old ischemic change. Normal basal ganglia and thalami. Normal brainstem. Normal cerebellum. There is no intracranial hemorrhage. There are no findings of an acute ischemic infarction. Atherosclerotic calcification of the cavernous portions of the internal carotid arteries bilaterally. Normal visualized paranasal sinuses. ASPECT score: 10 CT/STROKE Brain/Head without Cont IMPRESSION: Chronic involutional changes of the brain. N.B. : The above Results were Read Back by Manfred Aaron MD to Dr Jamey MD, and understanding confirmed on 10/08/2022 12:30:08 (ET). Electronically Signed: Manfred Aaron MD at 12:31 EDT ,
--- NOTE | 2022-10-08 12:15 | CT_ITS ---
STUDY: CTA HEAD AND NECK WITH CONTRAST REASON FOR EXAM: Female, 72 years old. Right sided facial droop RADIATION DOSAGE (If Supplied By Facility): CTDIvol = ( 16.57 ) mGy, DLP = ( 757.40 ) mGycm TECHNIQUE: CT angiography was performed with a multi-detector CT scanner. Data acquisition was obtained from the skull base through the vertex following intravenous administration of IV 100mL Isovue-370. MIP images were reconstructed from the axial data set. Post-processing of the angiographic images was performed, with multiplanar reformation and 3D reconstruction. Individualized dose optimization techniques were used for this CT. COMPARISON: Comparison is made with prior CTA of the head and neck dated April 29, 2022. FINDINGS: Normal bilateral petrous carotid arteries. Normal right cavernous carotid artery with a normal supraclinoid bifurcation. Normal left cavernous carotid artery with a normal supraclinoid bifurcation. Normal right A1 segments of the anterior cerebral artery. Normal left A1 segments of the anterior cerebral artery. Normal intact anterior communicating artery (ACOM). Normal bilateral A2 segments of the anterior cerebral arteries. Normal right M1 and M2 segments of the middle cerebral arteries, with a normal M1 bifurcation. Normal left M1 and M2 segments of the middle cerebral arteries, with a normal M1 bifurcation. Normal right posterior communicating artery (PCOM). Normal left posterior communicating artery (PCOM). Normal bilateral vertebral arteries. Normal basilar artery with a normal basilar bifurcation. The visualized bilateral superior cerebellar (SCA) arteries are normal. Normal bilateral P1, P2 and visualized P3 segments of the posterior cerebral arteries. There is no demonstrated aneurysm of the [place]. There is no demonstrated abnormality of the visualized brain. Mild heterogeneous enlargement of the right lobe of the liver. AORTIC ARCH: There is atherosclerotic calcific plaque formation of the aortic arch and great vessels arising from the aortic arch, without a hemodynamically significant stenosis. There is a normal origin of the brachiocephalic, left common carotid, and left subclavian arteries. RIGHT CAROTID ARTERIES: Normal right common carotid artery (CCA). Normal right common carotid bulb. There is mild atherosclerotic plaque formation of the origin of the right internal carotid artery with less than 50% cross sectional diameter stenosis. Normal visualized cervical portion of the right internal carotid artery. Normal origin of the right external carotid artery (ECA). LEFT CAROTID ARTERIES: Normal left common carotid artery (CCA). Normal left common carotid bulb. Normal origin of the left internal carotid (ICA) artery without a hemodynamically significant stenosis. Normal visualized cervical portion of the left internal carotid artery. Normal origin of the left external carotid artery (ECA). VERTEBRAL ARTERIES: Normal bilateral vertebral arteries. CT/STROKE CTA Head AND Neck W/Con IMPRESSION: Calcific plaque at the origin of the right internal carotid artery causing less than 50% stenosis. N.B. : The above Results were Read Back by Manfred Aaron MD to Dr Jamey MD, and understanding confirmed on 10/08/2022 12:43:31 (ET). Electronically Signed: Manfred Aaron MD at 12:44 EDT ,
--- NOTE | 2022-10-08 12:16 | EX.ED.DYSGE1 ---
HPI History of Present Illness Chief Complaint: Stroke Alert Narrative Narrative: 72-year-old female here with concern for acute stroke. She was activated as stroke team by EMS in the field. Last known well was proximately 9 PM on 10/07/2022. Patient was noted to have a history of a stroke/TIA. Per EMS patient was seen leaning to the right right-sided facial droop. Per EMS called 2/2 to intractable n/v. Patient does not provide a reliable history 2/2 AMS. Per the patient has been having nausea and vomiting last several days per EMS. Prior similar symptoms: Yes PFSH [facility] Medical History (Updated 10/08/22 @ 15:[address] Garry Concepcion, DO) Acute bronchitis, unspecified Acute maxillary sinusitis, unspecified Arthritis Carpal tunnel syndrome, right Depressive disorder Dyspnea on exertion Expressive aphasia Hot flashes Hypertension Lupus Migraine headache Osteoarthritis Osteoporosis SLE (systemic lupus erythematosus related syndrome) Stress incontinence in female Vaginal ulcer Home Medications hydrochlorothiazide 25 mg tablet 25 mg PO DAILY BLOOD PRESSURE 11/26/15 [History Last Taken 2 Days Ago ~10/06/22] ibandronate 150 mg tablet 150 mg PO Q30D BONE HEALTH 11/26/15 [History Last Taken 09/16/22] calcium carbonate 500 mg-vitamin D3 10 mcg (400 unit) tablet 1 tab PO TID SUPPLEMENT 04/07/22 [History Last Taken 2 Days Ago ~10/06/22] folic acid 1 mg tablet 1 mg PO BID SUPPLEMENT 04/07/22 [History Last Taken 2 Days Ago ~10/06/22] hydroxychloroquine 200 mg tablet (Plaquenil) 200 mg PO BID RHEUMATOID ARTHRITIS 04/07/22 [History Last Taken 2 Days Ago ~10/06/22] loratadine 10 mg tablet (Allergy Relief (loratadine)) 10 mg PO DAILY PRN allergic symptoms 04/07/22 [History Last Taken Unknown] methotrexate sodium 2.5 mg tablet 15 mg PO ARIAS RHEUMATOID ARTHRITIS 04/07/22 [History Last Taken 10/04/22] potassium chloride 10 mEq tablet,extended release(part/cryst) 10 meq PO BID SUPPLEMENT 04/07/22 [History Last Taken 2 Days Ago ~10/06/22] propranolol 40 mg tablet 40 mg PO DAILY BLOOD PRESSURE 07/08/22 [History Last Taken 2 Days Ago ~10/06/22] aspirin 81 mg tablet,delayed release (Adult Low Dose Aspirin) 81 mg PO DAILY HEART HEALTH 10/08/22 [History Last Taken 2 Days Ago ~10/06/22] buspirone 5 mg tablet 5 mg PO BID ANXIETY 10/08/22 [History Last Taken 2 Days Ago ~10/06/22] clindamycin HCl 300 mg capsule 300 mg PO TID ANTIBIOTIC 10/08/22 [History Last Taken 2 Days Ago ~10/06/22] duloxetine 60 mg capsule,delayed release 60 mg PO BID DEPRESSION 10/08/22 [History Last Taken 2 Days Ago ~10/06/22] ferrous sulfate 325 mg (65 mg iron) tablet 325 mg PO DAILY SUPPLEMENT 10/08/22 [History Last Taken 2 Days Ago ~10/06/22] meclizine 12.5 mg tablet 12.5 mg PO DAILY PRN DIZZINESS 10/08/22 [History Last Taken Unknown] prednisone 10 mg tablet 10 mg PO DAILY PRN STEROID 10/08/22 [History Last Taken Unknown] Allergy/AdvReac Type Severity Reaction Status Date / Time codeine Allergy Rash Verified 10/06/22 11:14 Family History Sister Lupus Mother CVA (cerebral vascular accident) Heart disease Hypertension Father Heart disease Hypertension Brother Heart disease Sister Diabetes Surgical History H/O dilation and curettage H/O tubal ligation History of hernia surgery History of hip surgery History of tonsillectomy Social History adopted: No household members: spouse housing: house number of children: 1 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 pets and animals: Yes Smoking Status: Never smoker second hand exposure: No alcohol intake: never substance use type: does not use seatbelt use: always do you feel safe at home: Yes additional social history: - Riki BROOKS ROS ED ROS Narrative Unable to obtain review of systems secondary to mental status change, acuity of condition Review of Systems ROS Unobtainable: due to mental status EXAM Physical Exam Narrative Exam Narrative: Nursing triage notes reviewed, Vital signs reviewed Constitutional: please see mdm HENT: MMM Eyes: Pupils equal round and reactive to light, Extraocular muscles intact Neck: No stridor, no JVD, full neck ROM Lungs: Clear to auscultation, No wheezing or rales. No increased work of breathing, no conversational dyspnea, no accessory muscle use, no nasal flaring. No respiratory distress noted Heart: Regular rate and rhythm, No murmurs, No rubs and No gallops, 2+ distal pulses (radial, femoral, posterior tibial) in all extremities Abdomen: Soft, there is no tenderness, rigidity, rebound or guarding, no obvious peritoneal signs, no palpable pulsatile abdominal masses, no auscultated abdominal bruit : No CVAT Extremities: No edema Neuro: Patient was somnolent, alert to minor stimuli, has dysarthria, aphasia, right-sided facial droop, right-sided drift initial NIH of 2 for aphasia and dysarthria Upon reassessment patient continued to have aphasia, dysarthria (baseline per family) but there is no obvious facial drooping, drift or other focal neurologic deficit. NIH now 0. Skin: No rash or lesions noted Const Vital Signs: 10/08/22 12:24 10/08/22 12:24 10/08/22 13:28 Temperature 100 F H Temperature Source Oral Pulse Rate 81 75 Respiratory Rate 18 18 Blood Pressure 163/94 H 157/78 H Blood Pressure Mean 117 104 Pulse Ox 94 96 Oxygen Delivery Method Nasal Cannula Nasal Cannula Nasal Cannula Oxygen Flow Rate (L/min) 2 2 2 MDM MDM MDM Narrative Medical decision making narrative: Chief Complaint: Code stroke External records reviewed: MRI from 2021 shows no acute infarct I considered the following differential diagnosis: Intracranial bleed, CVA, hepatic or metabolic encephalopathy, arrhythmia Patient was initially febrile, hypertensive and hypoxic requiring 2 L of oxygen. She had no respiratory distress to indicate intubation at this time. Initial NIH was 8 for dysarthria, aphasia, right-sided facial droop, right-sided upper arm drift. Patient was taken immediately to CT scanner as per stroke protocol. CT head, CTA of the head and neck were negative for acute intracranial bleeding or large vessel occlusion. Patient is out of tPA candidate given time since onset of symptoms being greater than 4 and half hours. Stroke neurology was consulted. Stroke neurology was able to evaluate the patient by telehealth. Stroke neurology did not think the patient's sensation is secondary to acute CVA on his exam he had NIH of 2 for baseline aphasia and dysarthria. On my repeat evaluation he also had NIH of 2. Patient's symptoms appear to resolve. At this point time concern was hypoxia and fever concerning for infectious encephalopathy. Patient's x-ray had evidence of pneumonia. She was given antibiotics. Given hypoxia, evidence of pneumonia and concern for TIA versus CVA patient was admitted to internal medicine for telemetry monitoring, MRI, antibiotics and further oxygen therapy. Discussed with hospitalist Dr. Dalal. Factors affecting care: history of TIA Social determinants of health: Elderly, poor health literacy History obtained from others: EMS, family Shared decision making: I will have a discussion with the patient and or visitors regarding risk/benefits of further testing or admission. They will be made aware of of the risk/benefits inherent in this decision they will be given the opportunity to voice understanding. Consults: Stroke neurology, hospitalist History & Record Review Discussion w/independent historian: EMS personnel and Family Lab Data Attestation: I reviewed the patient's lab results. Lab results narrative: CBC with no leukocytosis, mild anemia, no CMP with hyponatremia, hypokalemia, no anion gap to suggest endorgan hypoperfusion Troponin is negative, no evidence of myocardial ischemia PT, INR, PTT without evidence of coagulopathy Labs: Laboratory Results - last 24 hr 10/08/22 10/08/22 10/08/22 12:30 12:30 12:30 WBC 9.0 RBC 3.48 L Hgb 11.5 L Hct 34.6 L MCV 99.4 H MCH 33.0 H MCHC 33.2 RDW Std Deviation 45.3 H RDW Coeff of Eduardo 12.7 Plt Count 243 MPV 10.1 Immature Gran % (Auto) 0.800 Neut % (Auto) 87.4 H Lymph % (Auto) 4.5 L [place] % (Auto) 6.4 Eos % (Auto) 0.3 Baso % (Auto) 0.6 Absolute Neuts (auto) 7.9 H Absolute Lymphs (auto) 0.41 L Nucleated RBC % 0 PT 15.1 H INR 1.2 APTT 29.6 Sodium 134 L Potassium 3.4 L Chloride 99 Carbon Dioxide 28.0 Anion Gap 7 BUN 13 Creatinine 0.86 Estim Creat Clear Calc 55.35 Est GFR (MDRD) Af Amer 83 Est GFR (MDRD) Non-Af 69 BUN/Creatinine Ratio 15.1 Glucose 141 H Calcium 8.5 Troponin I High Sens 7 Radiography Diagnostic Testing: Clinical Impression(s) from Imaging Studies Brain CT 10/08/22 12:14 IMPRESSION: Chronic involutional changes of the brain. N.B. : The above Results were Read Back by Manfred Aaron MD to Dr Jamey MD, and understanding confirmed on 10/08/2022 12:30:08 (ET). Electronically Signed: Manfred Aaron MD at 12:31 EDT , ADDENDUM: 10/08/22 1238 IMPRESSION: Chronic involutional changes of the brain. N.B. : The above Results were Read Back by Manfred Aaron MD to Dr Jamey MD, and understanding confirmed on 10/08/2022 12:30:08 (ET). Electronically Signed: Manfred Aaron MD at 12:31 EDT , Head/Neck CTA 10/08/22 12:15 IMPRESSION: Calcific plaque at the origin of the right internal carotid artery causing less than 50% stenosis. N.B. : The above Results were Read Back by Manfred Aaron MD to Dr Jamey MD, and understanding confirmed on 10/08/2022 12:43:31 (ET). Electronically Signed: Manfred Aaron MD at 12:44 EDT , ADDENDUM: 10/08/22 1251 IMPRESSION: Calcific plaque at the origin of the right internal carotid artery causing less than 50% stenosis. N.B. : The above Results were Read Back by Manfred Aaron MD to Dr Jamey MD, and understanding confirmed on 10/08/2022 12:43:31 (ET). Electronically Signed: Manfred Aaron MD at 12:44 EDT , Chest X-Ray 10/08/22 12:52 IMPRESSION: Mild degree of increased markings in the right midlung. Early infiltrate should be ruled out. Electronically Signed: Manfred Aaron MD at 13:26 EDT , EKG Initial EKG: Attestation: I personally reviewed and interpreted this EKG as follows: Comments: EKG with normal sinus rhythm, left axis deviation, normal intervals, no STEMI Discharge Plan Dx/Rx/DC Orders Clinical Impression: Acute alteration in mental status, Nausea & vomiting, Dysarthria, Hypoxia, Pneumonia, Aphasia Disposition Disposition: Acute Care Hospital [facility] Discharge Date/Time: 10/08/22 15:37
[2022-10-08 12:40] LABS: Absolute Lymphocyte Count 0.41 X10^3/uL (0.83-4.51); Absolute Neutrophil Count 7.9 X10^3/uL (2.0-7.7); Basophil# 0.05 X10^3/uL; Basophil% 0.6 % (0-1); Eosinophil# 0.03 X10^3/uL; Eosinophils% 0.3 % (0-5); Hematocrit 34.6 % (37-47); Hemoglobin 11.5 g/dL (12.0-15.0); Lymphocyte # 0.41 X10^3/ul (0.83-4.51); Lymphocyte % 4.5 % (19-41); Mean Corp Hgb Conc 33.2 g/dL (32-36); Mean Corpuscular Volume 99.4 fL (81-99); Mean Platelet Vol. 10.1 fl (6.2-12.0); Monocyte# 0.58 X10^3/uL; Monocyte% 6.4 % (0-10); NRBC Flagged by Analyzer 0 % (0-5); Neutrophil % 87.4 % (47-70); POSITIVE DIFFERENTIAL YES; Platelet Count 243 K/mm3 (150-450); RBC Distribution Width CV 12.7 % (11.6-14.6); RBC Distribution Width SD 45.3 fl (35.1-43.9); Red Blood Count 3.48 M/mm3 (4.2-5.4)
[2022-10-08 12:45] LABS: Differential Indicated SCAN CRITERIA MET
--- NOTE | 2022-10-08 12:52 | RAD_ITS ---
STUDY: X-RAY CHEST REASON FOR EXAM: Female, 72 years old. Neuro deficit, acute, stroke suspected TECHNIQUE: Single AP portable view of the chest. COMPARISON: Comparison is made with prior study of November 24, 2020. FINDINGS: EKG electrodes are seen. Mild increased markings are seen in the right mid lung. Early infiltrate should be ruled out. There is no demonstrated pleural abnormality. Normal size heart. Normal mediastinum and roderick. Normal visualized pulmonary arteries. There is atherosclerotic tortuosity of the aortic arch and descending thoracic aorta. There are diffuse degenerative changes of the visualized thoracic spine. There is degenerative osteoarthritis of the bilateral shoulders. There is no demonstrated abnormality of the visualized soft tissue structures of the upper abdomen. RAD/Chest 1 View IMPRESSION: Mild degree of increased markings in the right midlung. Early infiltrate should be ruled out. Electronically Signed: Manfred Aaron MD at 13:26 EDT ,
--- NOTE | 2022-10-08 12:53 | ED.RN ---
Dr. Concepcion states do not need to order blood cultures at this time.
--- NOTE | 2022-10-08 12:55 | CM.ED ---
Social Work Note Referral Source: Stroke alert Referral Reason: emotional support SW responded to stroke alert upon patient's arrival to ED, no family present but is on his way. SW met with patient's in ED triage, introduced herself and role as [facility] Statistics Manager. SW reviewed procedures in responding and caring for a patient with symptoms related to possible stroke. Patient's briefly reviewed recent events, explaining the patient met with a neurologist in June and believes patient has a follow up appointment in October. Patient's also reports the patient has been struggling with speech, walking and ADLS occasionally. SW provided patient's with emotional support and escorted him to patient's room. Patient's RN at bedside and provided patient's with update. SW remains available if needs arise. Shirley BALLARD, MARIA C
[2022-10-08 12:56] LABS: Anion Gap 7 (5-15); BUN 13 mg/dL (7-18); BUN/Creat Ratio 15.1 RATIO (10-20); Calcium,Total 8.5 mg/dL (8.5-10.1); Chloride 99 mmol/L (98-107); Creatinine, Serum 0.86 mg/dL (0.55-1.02); EST Glomerular Filtration Rate 69 mL/min (>60); Est Glom Filt Rate - Afr Amer 83 mL/min (>60); Estimated Creatinine Clearance 55.35 ml/min; Glucose 141 mg/dL (74-106); Potassium 3.4 mmol/L (3.5-5.1); Sodium Level 134 mmol/L (136-145); Troponin-I HS 7 pg/mL (3.0-54.0)
[2022-10-08 13:21] LABS: Partial Thromboplast Time 29.6 Seconds (24.1-36.2)
[2022-10-08 13:50] LABS: International Normalized Ratio 1.2; Prothrombin Time (Protime)PT. 15.1 SECONDS (11.7-14.9)
--- NOTE | 2022-10-08 14:32 | ED.RN ---
notified energy technician to complete med list.
--- NOTE | 2022-10-08 14:47 | NURSING ---
DR HILL FOR DR RAMIREZ
--- NOTE | 2022-10-08 14:48 | NURSING ---
PCU [facility] HYPOXIA
[2022-10-08] MEDS: Ondansetron 4 MG/2 ML Vial IV ×2 (14:54→17:20)
--- NOTE | 2022-10-08 15:00 | HP.PCM.HOS_ITS ---
HPI - General General Date of Admission: 10/08/22 HPI Narrative YADIRA PEREZ, is a 72 F who presents to the hospital with lethargy and weakness as well as concerns for possible stroke. She had a stroke in the past that led to residual expressive aphasia however family noted that the aphasia has gotten worse over the last couple days. She has been having a cough that is now productive, she went to an urgent care and was started on clindamycin but it appears that she only took 1 days worth. Today in the ER she was found to have a normal white blood cell count but she spiked a temp to 100 and chest x-ray shows a mild right middle lobe infiltrate. Because of her presentation a stroke alert was called, [facility] was able to evaluate her and felt that she would benefit from an MRI but otherwise did not feel like they were having an acute stroke. [facility] Medical History (Updated 10/08/22 @ 15:[address] Rajat Dalal MD) Acute bronchitis, unspecified Acute maxillary sinusitis, unspecified Arthritis Carpal tunnel syndrome, right Depressive disorder Dyspnea on exertion Expressive aphasia Hot flashes Hypertension Lupus Migraine headache Osteoarthritis Osteoporosis SLE (systemic lupus erythematosus related syndrome) Stress incontinence in female Vaginal ulcer Home Medications hydrochlorothiazide 25 mg tablet 25 mg PO DAILY BLOOD PRESSURE 11/26/15 [History Last Taken 2 Days Ago ~10/06/22] ibandronate 150 mg tablet 150 mg PO Q30D BONE HEALTH 11/26/15 [History Last Taken 09/16/22] calcium carbonate 500 mg-vitamin D3 10 mcg (400 unit) tablet 1 tab PO TID SUPP LEMENT 04/07/22 [History Last Taken 2 Days Ago ~10/06/22] folic acid 1 mg tablet 1 mg PO BID SUPPLEMENT 04/07/22 [History Last Taken 2 Days Ago ~10/06/22] hydroxychloroquine 200 mg tablet (Plaquenil) 200 mg PO BID RHEUMATOID ARTHRITIS 04/07/22 [History Last Taken 2 Days Ago ~10/06/22] loratadine 10 mg tablet (Allergy Relief (loratadine)) 10 mg PO DAILY PRN allergic symptoms 04/07/22 [History Last Taken Unknown] methotrexate sodium 2.5 mg tablet 15 mg PO ARIAS RHEUMATOID ARTHRITIS 04/07/22 [History Last Taken 10/04/22] potassium chloride 10 mEq tablet,extended release(part/cryst) 10 meq PO BID SUP PLEMENT 04/07/22 [History Last Taken 2 Days Ago ~10/06/22] propranolol 40 mg tablet 40 mg PO DAILY BLOOD PRESSURE 07/08/22 [History Last Taken 2 Days Ago ~10/06/22] aspirin 81 mg tablet,delayed release (Adult Low Dose Aspirin) 81 mg PO DAILY HEART HEALTH 10/08/22 [History Last Taken 2 Days Ago ~10/06/22] buspirone 5 mg tablet 5 mg PO BID ANXIETY 10/08/22 [History Last Taken 2 Days Ago ~10/06/22] clindamycin HCl 300 mg capsule 300 mg PO TID ANTIBIOTIC 10/08/22 [History Last Taken 2 Days Ago ~10/06/22] duloxetine 60 mg capsule,delayed release 60 mg PO BID DEPRESSION 10/08/22 [History Last Taken 2 Days Ago ~10/06/22] ferrous sulfate 325 mg (65 mg iron) tablet 325 mg PO DAILY SUPPLEMENT 10/08/22 [History Last Taken 2 Days Ago ~10/06/22] meclizine 12.5 mg tablet 12.5 mg PO DAILY PRN DIZZINESS 10/08/22 [History Last Taken Unknown] prednisone 10 mg tablet 10 mg PO DAILY PRN STEROID 10/08/22 [History Last Taken Unknown] Allergy/AdvReac Type Severity Reaction Status Date / Time codeine Allergy Rash Verified 10/06/22 11:14 Family History Sister Lupus Mother CVA (cerebral vascular accident) Heart disease Hypertension Father Heart disease Hypertension Brother Heart disease Sister Diabetes Surgical History H/O dilation and curettage H/O tubal ligation History of hernia surgery History of hip surgery History of tonsillectomy Social History adopted: No household members: spouse housing: house number of children: 1 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 [employer] pets and animals: Yes Smoking Status: Never smoker second hand exposure: No alcohol intake: never substance use type: does not use seatbelt use: always do you feel safe at home: Yes additional social history: - Riki BROOKS Constitutional Constitutional: Reports fatigue and weakness; Denies chills, fever(s) or malaise Eyes Eyes: Denies blurry vision ENT HEENT: Denies headache(s) or nasal discharge Cardiovascular Cardiovascular: Denies chest pain, dyspnea on exertion or syncope Respiratory/Chest Respiratory/Chest: Denies cough, shortness of breath at rest or shortness of breath with exertion Gastrointestinal Gastrointestinal: Denies constipation, diarrhea, nausea or vomiting Genitourinary Genitourinary: Denies dysuria Neurologic Neurologic: Reports abnormal speech; Denies focal weakness, numbness or tremor(s) Psychiatric Psychiatric: Denies anxiety or depression Vital Signs Vital Signs Vital Signs: 10/08/22 12:24 10/08/22 12:24 10/08/22 13:28 Temperature 100 F H Temperature Source Oral Pulse Rate 81 75 Respiratory Rate 18 18 Blood Pressure 163/94 H 157/78 H Blood Pressure Mean 117 104 Pulse Ox 94 96 Oxygen Delivery Method Nasal Cannula Nasal Cannula Nasal Cannula Oxygen Flow Rate (L/min) 2 2 2 Weight Weight: 187 lb 13.341 oz Body Mass Index (BMI) 30.3 Physical Exam Narrative General: Alert, Oriented x3, Cooperative, No apparent distress, drowsy HEENT: Atraumatic, PERRLA, EOMI, Normocephalic Oral: Moist Mucosa Neck: Supple, No JVD Lungs: Diminished, Normal air movement, rhonchi, No wheeze, No rales Cardiovascular: Regular rate, Regular Rhythm, Normal S1, Normal S2, No murmurs Abdomen: Soft, Non Tender, Non-Distended, No Hepato-splenomegaly Extremities: No edema, Capillary Refill Less than 3 Seconds Skin: No rashes, No breakdown Musculoskeletal: No Tenderness to Palpation of Joints or Extremities Neurological: Motor Exam 5/5 strength throughout, Sensory exam intact to light touch and pain, no drift noted Psych/Mental Status: Normal Affect, Appropriate Results Lab / Micro Data Result Diagrams: 10/08/22 12:30 10/08/22 12:30 Labs: Laboratory Results - last 24 hr 10/08/22 12:30: WBC 9.0, RBC 3.48 L, Hgb 11.5 L, Hct 34.6 L, MCV 99.4 H, MCH 33.0 H, MCHC 33.2, RDW Std Deviation 45.3 H, RDW Coeff of Eduardo 12.7, Plt Count 243, MPV 10.1, Immature Gran % (Auto) 0.800, Neut % (Auto) 87.4 H, Lymph % (Auto) 4.5 L, [place] % (Auto) 6.4, Eos % (Auto) 0.3, Baso % (Auto) 0.6, Absolute Neuts (auto) 7.9 H, Absolute Lymphs (auto) 0.41 L, Nucleated RBC % 0 10/08/22 12:30: PT 15.1 H, INR 1.2, APTT 29.6 10/08/22 12:30: Sodium 134 L, Potassium 3.4 L, Chloride 99, Carbon Dioxide 28.0, Anion Gap 7, BUN 13, Creatinine 0.86, Estim Creat Clear Calc 55.35, Est GFR (MDR D) Af Amer 83, Est GFR (MDRD) Non-Af 69, BUN/Creatinine Ratio 15.1, Glucose 141 H, Calcium 8.5, Troponin I High Sens 7 Micro: Microbiology 10/08/22 13:30 Nasal Secretion SARS-CoV-2 & FLU Antigen (Rapid) - Final Radiology Impression Brain CT 10/08/22 12:14 IMPRESSION: Chronic involutional changes of the brain. N.B. : The above Results were Read Back by Manfred Aaron MD to Dr Jamey MD, and understanding confirmed on 10/08/2022 12:30:08 (ET). Electronically Signed: Manfred Aaron MD at 12:31 EDT , ADDENDUM: 10/08/22 1238 IMPRESSION: Chronic involutional changes of the brain. N.B. : The above Results were Read Back by Manfred Aaron MD to Dr Jamey MD, and understanding confirmed on 10/08/2022 12:30:08 (ET). Electronically Signed: Manfred Aaron MD at 12:31 EDT , Head/Neck CTA 10/08/22 12:15 IMPRESSION: Calcific plaque at the origin of the right internal carotid artery causing less than 50% stenosis. N.B. : The above Results were Read Back by Manfred Aaron MD to Dr Jamey MD, and understanding confirmed on 10/08/2022 12:43:31 (ET). Electronically Signed: Manfred Aaron MD at 12:44 EDT , ADDENDUM: 10/08/22 1251 IMPRESSION: Calcific plaque at the origin of the right internal carotid artery causing less than 50% stenosis. N.B. : The above Results were Read Back by Manfred Aaron MD to Dr Jamey MD, and understanding confirmed on 10/08/2022 12:43:31 (ET). Electronically Signed: Manfred Aaron MD at 12:44 EDT , Chest X-Ray 10/08/22 12:52 IMPRESSION: Mild degree of increased markings in the right midlung. Early infiltrate should be ruled out. Electronically Signed: Manfred Aaron MD at 13:26 EDT , Assessment & Plan Assessment/Plan (1) Acute alteration in mental status: (2) Pneumonia: (3) Transient ischemic attack: PLAN: Plan 1. TIA versus residual deficits from a previous stroke exacerbated by community-acquired pneumonia with acute hypoxia and metabolic encephalopathy ? We will obtain a sputum culture ? Continue with IV antibiotics ? We will obtain blood cultures ? We will obtain an MRI though her symptomatology has significantly improved ? We will continue with her home on aspirin and statin 2. Lupus ? Continue with Plaquenil and methotrexate ? Stable 3. HTN/history of CVA ? Can continue with her current and her home blood pressure medications ? Blood pressure is stable 4. Anxiety/depression ? Stable ? Can continue with Cymbalta DVT: Lovenox 78 minutes was spent in direct patient care as well as chart review, documentation and collaboration with colleagues Charges/Coding Visit Charges Inpatient E&M: 86195 Init Hosp L3
[2022-10-08] MEDS: Ceftriaxone 1 GM/50 ML BAG IV (15:27)
--- NOTE | 2022-10-08 15:40 | MRI_ITS ---
STUDY: MRI BRAIN WITHOUT CONTRAST REASON FOR EXAM: Female, 72 years old. TIA, r weakness, r facial droop, slurred speech TECHNIQUE: Standardized multiplanar fat and water weighted pulse sequences were obtained. COMPARISON: 04/30/2022; 10/08/2022 CT HEMISPHERES, CEREBELLUM AND BRAINSTEM: 1. The cerebral parenchyma, ventricular system, subarachnoid spaces have normal configuration. There is a normal gyral pattern. There is normal fulton/white differentiation. No midline shift. 2. Mild subcortical and periventricular chronic white matter ischemic change. 3. No intraparenchymal mass, hemorrhage, or acute territorial infarct. 4. The cerebellum, brainstem, basilar and suprasellar cisterns have normal appearance. No Chiari malformation. PITUITARY: Infundibulum and pituitary have normal configuration. Midline structures appear normal. CSF SPACES: Appropriate for age. No hydrocephalus. Basal cisterns are patent. VESSELS: 1. There are normal flow voids noted in the great vessels at the skull base ORBITS AND PARANASAL SINUSES: 1. Both globes, extraocular muscles, optic nerves and retrobulbar fat appear unremarkable. 2. Scattered paranasal sinus mucosal thickening. BONY ELEMENTS: Bony elements of the cranial vault, facial skeleton and skull base have normal appearance. SCALP AND SOFT TISSUES: Normal appearance of the soft tissues of the scalp and the visualized face OTHER: None MRI/Brain without Contrast IMPRESSION: 1. No intracranial mass, hemorrhage, or acute territorial infarct. Electronically Signed: Ruy Canales MD at 18:47 EDT ,
--- NOTE | 2022-10-08 16:47 | NURSING ---
patient taken to mri sisters left
[2022-10-08] MEDS: 0.9% Saline Lock 10 ML Syringe IV (17:20)
[2022-10-08] MEDS: Acetaminophen 325 MG Tablet 650 MG PO (21:03)
[2022-10-08] MEDS: Hydroxychloroquine 200 MG Tablet PO (21:06)
[2022-10-08] MEDS: DULoxetine Hcl 60 MG Capsule PO (21:06)
[2022-10-08] MEDS: Folic Acid 1 MG Tablet PO (21:07)
[2022-10-08] MEDS: busPIRone 5 MG Tablet PO (21:07)
[2022-10-09] VITALS (9 sets, daily range): BP systolic 116–150; BP diastolic 59–80; PULSE 56–79; RESP 16–20; TEMP 36.6–37; O2SAT 96–100; BMI 30.7
[2022-10-09 07:04] LABS: Absolute Lymphocyte Count 0.65 X10^3/uL (0.83-4.51); Absolute Neutrophil Count 7.1 X10^3/uL (2.0-7.7); Basophil# 0.05 X10^3/uL; Basophil% 0.6 % (0-1); Eosinophil# 0.02 X10^3/uL; Eosinophils% 0.2 % (0-5); Hematocrit 37.9 % (37-47); Hemoglobin 12.1 g/dL (12.0-15.0); Lymphocyte # 0.65 X10^3/ul (0.83-4.51); Lymphocyte % 7.7 % (19-41); Mean Corp Hgb Conc 31.9 g/dL (32-36); Mean Corpuscular Hgb 32.7 pg (27.0-32.0); Mean Corpuscular Volume 102.4 fL (81-99); Mean Platelet Vol. 10.2 fl (6.2-12.0); Monocyte# 0.57 X10^3/uL; Monocyte% 6.8 % (0-10); NRBC Flagged by Analyzer 0 % (0-5); Neutrophil # 7.09 X10^3/uL (2.7-7.7); Neutrophil % 84.1 % (47-70); Platelet Count 252 K/mm3 (150-450); RBC Distribution Width CV 12.9 % (11.6-14.6); RBC Distribution Width SD 47.7 fl (35.1-43.9); White Blood Count 8.4 K/mm3 (4.4-11.0)
[2022-10-09 07:29] LABS: Anion Gap 6 (5-15); BUN 10 mg/dL (7-18); Calcium,Total 8.8 mg/dL (8.5-10.1); Chloride 100 mmol/L (98-107); Creatinine, Serum 0.84 mg/dL (0.55-1.02); EST Glomerular Filtration Rate 71 mL/min (>60); Est Glom Filt Rate - Afr Amer 86 mL/min (>60); Estimated Creatinine Clearance 56.67 ml/min; Glucose 102 mg/dL (74-106); Potassium 3.5 mmol/L (3.5-5.1); Sodium Level 137 mmol/L (136-145)
[2022-10-09] MEDS: Hydroxychloroquine 200 MG Tablet PO ×2 (09:31→20:43)
[2022-10-09] MEDS: DULoxetine Hcl 60 MG Capsule PO ×2 (09:31→20:43)
[2022-10-09] MEDS: Ferrous Sulfate 325 MG Tablet PO (09:31)
[2022-10-09] MEDS: busPIRone 5 MG Tablet PO ×2 (09:31→20:43)
[2022-10-09] MEDS: Aspirin E.C. 81 MG Tablet PO (09:31)
[2022-10-09] MEDS: hydroCHLOROthiazide 25 MG Tablet PO (09:31)
[2022-10-09] MEDS: Folic Acid 1 MG Tablet PO ×2 (09:31→20:44)
[2022-10-09] MEDS: Propranolol 40 MG Tablet PO (09:31)
[2022-10-09] MEDS: Enoxaparin 40 MG/0.4 ML Syringe SC (09:31)
[2022-10-09] MEDS: Meclizine 12.5 MG Tablet PO (09:56)
--- NOTE | 2022-10-09 10:35 | CASEMGMT ---
ABISAI ARAIZA Face to Face with patient for initial transition planning/care coordination assessment. RN CM introduced self and role at [facility]. Patient lying in bed, alert and oriented. Patient willing to participate in assessment and is able to answer all questions appropriately. Care providers, pharmacy, and demographics verified. Patient wishes to discharge home, denies need for home health at this time. Patient states she has no further needs or concerns at this time. CM to follow for discharge planning needs that may arise. PCP: Bk Specialists: bong Ugarte; Joseph visual c developer; RA Ileana Preferred Pharmacy: [facility] Insurance: [facility], [facility] Prescription Benefit: yes Living Will/HPOA: none LNOK: Living Arrangements: Patient lives with in a single story home with 3 steps and railing to enter the home. Patient is independent for selfcare. Transportation: DME/HHC: Patient has built in shower chair, raised toilet, cane, wakler, wheelchair, grab bars, and pulse ox at home. NO previous HHC or SNF. Review DME agencies with patient, prefers [facility]. Disposition Plan: Patient to discharge home with family support and follow-up plans in place. Will monitor for home oxygen Meryl MARX, RN, CM
[2022-10-09] MEDS: Ceftriaxone 1 GM/50 ML BAG IV (11:08)
--- NOTE | 2022-10-09 12:57 | CASEMGMT ---
SW did not complete a PHQ 9 with patient as patient did not have a Stoke or TIA. Sendy Stephen SURVEY SUPERINTENDENTLydia LOMBARDI
--- NOTE | 2022-10-09 15:53 | PCM.PN.HOSP ---
Reason for Visit Reason for Visit: Diagnoses Transient cerebral ischemic attack, unspecified (10/08/22) Pneumonia, unspecified organism (10/08/22) Altered mental status, unspecified (10/08/22) Follow-up for acute bronchitis Objective Data Objective Data Vital Signs: Vital Signs Temp Pulse Resp BP Pulse Ox O2 Del Method O2 Flow Rate 98.6 F 56 L 18 126/59 H 98 Nasal Cannula 2 10/09/22 15:37 10/09/22 15:37 10/09/22 15:37 10/09/22 15:37 10/09/22 15:37 10/09/22 15:37 10/09/22 15:37 Oxygen Flow Rate (L/min) 2 Oxygen Delivery Method Nasal Cannula Weight: 190 lb Body Mass Index (BMI) 30.7 Intake & Output: Intake and Output for Last 24 Hours 10/07/22 10/08/22 10/09/22 23:59 23:59 23:59 Intake Total 545 / 665 1105 / 1105 Output Total 540 / 540 Balance 545 / 425 565 / 565 Lab / Micro Data Result Diagrams: 10/09/22 06:05 10/09/22 06:05 Labs: Laboratory Results - last 24 hr 10/09/22 06:05: WBC 8.4, RBC 3.70 L, Hgb 12.1, Hct 37.9, MCV 102.4 H, MCH 32.7 H, MCHC 31.9 L, RDW Std Deviation 47.7 H, RDW Coeff of Eduardo 12.9, Plt Count 252, MPV 10.2, Immature Gran % (Auto) 0.600, Neut % (Auto) 84.1 H, Lymph % (Auto) 7.7 L, [place] % (Auto) 6.8, Eos % (Auto) 0.2, Baso % (Auto) 0.6, Absolute Neuts (auto) 7.1, Absolute Lymphs (auto) 0.65 L, Nucleated RBC % 0 10/09/22 06:05: Sodium 137, Potassium 3.5, Chloride 100, Carbon Dioxide 31.0, Anion Gap 6, BUN 10, Creatinine 0.84, Estim Creat Clear Calc 56.67, Est GFR (MDRD) Af Amer 86, Est GFR (MDRD) Non-Af 71, BUN/Creatinine Ratio 12.0, Glucose 102, Calcium 8.8 Micro: Microbiology 10/08/22 13:30 Nasal Secretion SARS-CoV-2 & FLU Antigen (Rapid) - Final Radiography Diagnostic Testing: Radiology Impression Brain MRI 10/08/22 15:40 IMPRESSION: 1. No intracranial mass, hemorrhage, or acute territorial infarct. Electronically Signed: Ruy Canales MD at 18:47 EDT , Physical Exam Narrative Seen and examined. Patient has hoarseness of voice for 4 weeks which is slightly getting better. Also has cough sore throat, wheezing and mild shortness of breath on exertion. Denies fever or chill. Overall symptoms suggestive of viral bronchitis/URI. Denies COPD asthma or chronic cough or a smoking history. Physical exam General: Alert, Oriented x3, Cooperative HEENT: Atraumatic, PERRLA, EOMI, Normocephalic Oral: Oral mucosa moist. No Gingival or Mucosal Lesions/ Ulcerations Neck: Mild tenderness along submandibular region/throat. Supple, No JVD, Negative Carotid Bruits Lungs: Air entry diminished in bilateral lung bases. Bilateral wheezing Cardiovascular: Regular rate, Regular Rhythm, Normal S1, Normal S2, No murmurs Abdomen: Bowel Sounds Present, Soft, Non Tender, Non-Distended : No renal angle tenderness. No suprapubic tenderness. Extremities: No edema, Capillary Refill Less than 3 Seconds Skin: No rashes, No breakdown Musculoskeletal: No Tenderness to Palpation of Joints or Extremities. ROM intact. Neurological: Cranial nerves II-XII grossly intact, DTR 2+/4 and Symmetrical, Neuro grossly intact Psych/Mental Status: Normal Affect, Appropriate. Assessment & Plan Assessment/Plan (1) Acute alteration in mental status: (2) Pneumonia: (3) Transient ischemic attack: PLAN: Plan This 72-year-old female was admitted with lethargy, generalized weakness with concern of possible stroke. Patient has some residual expressive aphasia from previous stroke and family felt it got worse over last couple days. 1. Mild expressive aphasia from previous stroke: Patient is being admitted in PCU. MRI brain was done does not show acute acute infarct hemorrhage or mass. Earlier patient had CT brain and CTA head and neck which showed chronic involutional changes of brain and calcific plaque at origin of right ICA less than 50% stenosis respectively. Patient was seen by [facility] neurologist in ED the differential diagnosis was possible ischemic stroke versus metabolic process. Acute ischemic stroke ruled out. 2. Possible URI/acute bronchitis/early evolving pneumonia probably viral in origin: Chest x-ray individually reviewed and shows subtle changes at right midlung possible early infiltrate. History of throat, urinary antigens, sputum culture and respiratory panel are ordered. Patient empirically on IV ceftriaxone and azithromycin. 3. Lupus ? Continue with Plaquenil and methotrexate ? Stable 3. HTN/history of CVA ? Can continue with her current and her home blood pressure medications ? Blood pressure is stable 4. Anxiety/depression ? Can continue with Cymbalta DVT: Lovenox CODE STATUS DNR CCA no intubation Clinical Impression(s) from Imaging Studies Brain CT 10/08/22 12:14 IMPRESSION: Chronic involutional changes of the brain. Head/Neck CTA 10/08/22 12:15 IMPRESSION: Calcific plaque at the origin of the right internal carotid artery causing less than 50% stenosis. Chest X-Ray 10/08/22 12:52 IMPRESSION: Mild degree of increased markings in the right midlung. Early infiltrate should be ruled out. Electronically Signed: Manfred Aaron MD at 13:26 EDT , Brain MRI 10/08/22 15:40 IMPRESSION: 1. No intracranial mass, hemorrhage, or acute territorial infarct. Charges/Coding Visit Charges Inpatient E&M: 92718 Subs Hosp L2
[2022-10-09] MEDS: Ipratropium/Albuterol Sulfate 3 ML AMPUL.NEB INHALATION (19:24)
[2022-10-10 03:30] VITALS: BP 140/77; PULSE 57; RESP 16; TEMP 36.6; O2SAT 97
[2022-10-10] MEDS: guaiFENesin 10 ML UDC (200MG/10ML) PO (06:06)
[2022-10-10 06:50] VITALS: PULSE 65; RESP 16; O2SAT 94
[2022-10-10] MEDS: Ipratropium/Albuterol Sulfate 3 ML AMPUL.NEB INHALATION ×2 (06:50→13:14)
--- NOTE | 2022-10-10 09:36 | DCINST_ITS ---
Discharge Instructions Diet Discharge Diet: 2000 mg Sodium Diet Activity Discharge Activity: Return to Normal Activity Weight Bearing Status: Weight bearing as tolerated Dressing / Incision Call your doctor if you observe: Fever of 101 or Higher, Coldness, Increased Pain, Numbness or Tingling, Change in Color, Inability to urinate, Inability to have a bowel movement, Using more than 1 pad per hour, Shortness of breath, Dizziness, Fainting spells, Swelling in the ankles, Chest pain, Prolonged hiccupping, Increased palpitations (irregular heartbeat) and Calf discomfort Follow Up Care When: IN 2 WEEKS Test Results: Test results from this visit will be discussed in further detail at your follow- up appointment, if applicable. Discharge Plan Admission Admit Date/Time: 10/08/22 14:53 Primary Reason for Your Visit: acute viral bronchitis Attending Provider: Raudel Stoner Primary Care Provider: Carl Bourgeois Consulting Providers: Rajat Dalal Discharge Orders/Prescriptions Prescriptions: New pseudoephedrine-guaifenesin [Mucus D] 120-1,200 mg tablet extended release 12 hr 1 tab PO Q12H Qty: 14 0RF albuterol sulfate 90 mcg/actuation HFA aerosol inhaler 2 inh inhalation Q6H PRN (Reason: shortness of breath or wheezing) Qty: 8.5 0RF Continued folic acid 1 mg tablet 1 mg PO BID methotrexate sodium 2.5 mg tablet 15 mg PO ARIAS hydroxychloroquine [Plaquenil] 200 mg tablet 200 mg PO BID calcium carbonate-vitamin D3 500 mg-10 mcg (400 unit) tablet 1 tab PO TID loratadine [Allergy Relief (loratadine)] 10 mg tablet 10 mg PO DAILY PRN (Reason: allergic symptoms) potassium chloride 10 mEq tablet,ER particles/crystals 10 meq PO BID propranolol 40 mg tablet 40 mg PO DAILY hydrochlorothiazide 25 MG tablet 25 mg PO DAILY ibandronate 150 MG tablet 150 mg PO Q30D ferrous sulfate 325 mg (65 mg iron) Tablet 325 mg PO DAILY duloxetine 60 mg capsule,delayed release(DR/EC) 60 mg PO BID buspirone 5 mg tablet 5 mg PO BID meclizine 12.5 mg tablet 12.5 mg PO DAILY PRN (Reason: DIZZINESS ) aspirin [Adult Low Dose Aspirin] 81 mg tablet,delayed release (DR/EC) 81 mg PO DAILY prednisone 10 mg tablet 10 mg PO DAILY PRN (Reason: STEROID) Discontinued clindamycin HCl 300 mg capsule 300 mg PO TID Referrals / Follow Up: Negrito Shi DO [Med Staff - Active Staff] - Within 1 Month (CHRONIC Cough for 1 month, PFT, non smoker) Carl Bourgeois DO [Primary Care Provider] - Disposition Disposition (needs filled in before D/C Order can be placed): Home, Self Care
[2022-10-10 10:06] VITALS: BP 143/66; PULSE 57; RESP 18; TEMP 36.3; O2SAT 95
[2022-10-10] MEDS: Hydroxychloroquine 200 MG Tablet PO (10:10)
[2022-10-10] MEDS: Enoxaparin 40 MG/0.4 ML Syringe SC (10:10)
[2022-10-10] MEDS: Folic Acid 1 MG Tablet PO (10:11)
[2022-10-10] MEDS: busPIRone 5 MG Tablet PO (10:11)
[2022-10-10] MEDS: Ferrous Sulfate 325 MG Tablet PO (10:11)
[2022-10-10] MEDS: DULoxetine Hcl 60 MG Capsule PO (10:11)
[2022-10-10] MEDS: hydroCHLOROthiazide 25 MG Tablet PO (10:12)
[2022-10-10] MEDS: Aspirin E.C. 81 MG Tablet PO (10:13)
[2022-10-10] MEDS: Propranolol 40 MG Tablet PO (10:14)
[2022-10-10 11:38] VITALS: BMI 30.7
[2022-10-10] MEDS: Ceftriaxone 1 GM/50 ML BAG IV (11:38)
--- NOTE | 2022-10-10 11:46 | PCM.DC.SUM ---
Providers Date of Admission: 10/08/22 Date of Discharge: 10/10/22 Primary Care Physician: Dr. Carl Bourgeois, Reason For Visit: PNEUMONIA WITH TIA Diagnosis Discharge Diagnosis (1) Acute alteration in mental status: Status: Acute Code(s): R41.82 - Altered mental status, unspecified (2) Pneumonia: Status: Acute Code(s): J18.9 - Pneumonia, unspecified organism (3) Transient ischemic attack: Status: Resolved Code(s): G45.9 - Transient cerebral ischemic attack, unspecified Plan This 72-year-old female was admitted with lethargy, generalized weakness with concern of possible stroke. Patient has some residual expressive aphasia from previous stroke and family felt it got worse over last couple days. 1. Mild expressive aphasia from previous stroke: Patient is being admitted in PCU. MRI brain was done does not show acute acute infarct hemorrhage or mass. Earlier patient had CT brain and CTA head and neck which showed chronic involutional changes of brain and calcific plaque at origin of right ICA less than 50% stenosis respectively. Patient was seen by [facility] neurologist in ED the differential diagnosis was possible ischemic stroke versus metabolic process. Acute ischemic stroke ruled out. 2. Possible URI/acute bronchitis/early evolving pneumonia probably viral in origin: Chest x-ray individually reviewed and shows subtle changes at right midlung possible early infiltrate. History of throat, urinary antigens, sputum culture and respiratory panel are ordered. Patient empirically on IV ceftriaxone and azithromycin 10/10: Respiratory panel shows human metapneumovirus. Earlier patient was given prescription of clindamycin on 10/06 from urgent care which patient took for day butshe still has cough some wheezing although getting better for about 1 month. She might have bacterial superinfection therefore prescription given for cefdinir for 5 more days. Patient had 2 days of IV antibiotics here. Prescription also given for albuterol inhaler and Mucinex DM and referred for outpatient follow-up with Dr. Shi in 1 month for PFT. Patient is not a smoker. Home qualification oxygen 3. Lupus ? Continue with Plaquenil and methotrexate ? Stable 3. HTN/history of CVA ? Can continue with her current and her home blood pressure medications ? Blood pressure is stable 4. Anxiety/depression ? Can continue with Cymbalta DVT: Lovenox CODE STATUS DNR CCA no intubation Discharge medication reconciliation done. Discharge follow-up instructions completed. Discharge process discussed with the patient and all questions were answered to patient's satisfaction. Patient is ambulatory in home and in the community and requires home oxygen with portability probably from subacute/chronic bronchitis. Total time spent, exact 35 minutes on discharge meds reconciliation, examination, coordination of care with nurses and ancillary staff, review of imaging and blood test and discussion with the patient on follow-up instructions. Clinical Impression(s) from Imaging Studies Brain CT 10/08/22 12:14 IMPRESSION: Chronic involutional changes of the brain. Head/Neck CTA 10/08/22 12:15 IMPRESSION: Calcific plaque at the origin of the right internal carotid artery causing less than 50% stenosis. Chest X-Ray 10/08/22 12:52 IMPRESSION: Mild degree of increased markings in the right midlung. Early infiltrate should be ruled out. Electronically Signed: Manfred Aaron MD at 13:26 EDT , Brain MRI 10/08/22 15:40 IMPRESSION: 1. No intracranial mass, hemorrhage, or acute territorial infarct. Medications at Discharge Home Medications hydrochlorothiazide 25 mg tablet 25 mg PO DAILY BLOOD PRESSURE 11/26/15 ibandronate 150 mg tablet 150 mg PO Q30D BONE HEALTH 11/26/15 calcium carbonate 500 mg-vitamin D3 10 mcg (400 unit) tablet 1 tab PO TID SUPPLEMENT 04/07/22 folic acid 1 mg tablet 1 mg PO BID SUPPLEMENT 04/07/22 hydroxychloroquine 200 mg tablet (Plaquenil) 200 mg PO BID RHEUMATOID ARTHRITIS 04/07/22 loratadine 10 mg tablet (Allergy Relief (loratadine)) 10 mg PO DAILY PRN allergic symptoms 04/07/22 methotrexate sodium 2.5 mg tablet 15 mg PO ARIAS RHEUMATOID ARTHRITIS 04/07/22 potassium chloride 10 mEq tablet,extended release(part/cryst) 10 meq PO BID SUPPLEMENT 04/07/22 propranolol 40 mg tablet 40 mg PO DAILY BLOOD PRESSURE 07/08/22 aspirin 81 mg tablet,delayed release (Adult Low Dose Aspirin) 81 mg PO DAILY HEART HEALTH 10/08/22 buspirone 5 mg tablet 5 mg PO BID ANXIETY 10/08/22 duloxetine 60 mg capsule,delayed release 60 mg PO BID DEPRESSION 10/08/22 ferrous sulfate 325 mg (65 mg iron) tablet 325 mg PO DAILY SUPPLEMENT 10/08/22 meclizine 12.5 mg tablet 12.5 mg PO DAILY PRN DIZZINESS 10/08/22 prednisone 10 mg tablet 10 mg PO DAILY PRN STEROID 10/08/22 albuterol sulfate 90 mcg/actuation aerosol inhaler 2 inh inhalation Q6H PRN shortness of breath or wheezing #8.5 grams 10/10/22 cefdinir 300 mg capsule 300 mg PO BID #10 caps 10/10/22 pseudoephedrine-guaifenesin ER 120 mg-1,200 mg tab,extend release 12hr (Mucus D) 1 tab PO Q12H cold symptoms #14 tabs 10/10/22 Physical Exam Narrative Seen and examined. Shortness of breath cough and hoarseness of voice better. Denies COPD asthma or chronic cough or a smoking history. Advised 5 more days of mask as she is human metapneumovirus. On 2 L of oxygen. Physical exam General: Alert, Oriented x3, Cooperative HEENT: Atraumatic, PERRLA, EOMI, Normocephalic Oral: Oral mucosa moist. No Gingival or Mucosal Lesions/ Ulcerations Neck: Mild tenderness along submandibular region/throat. Supple, No JVD, Negative Carotid Bruits Lungs: Air entry diminished in bilateral lung bases. Bilateral wheezing and rhonchi better. Cardiovascular: Regular rate, Regular Rhythm, Normal S1, Normal S2, No murmurs Abdomen: Bowel Sounds Present, Soft, Non Tender, Non-Distended : No renal angle tenderness. No suprapubic tenderness. Extremities: No edema, Capillary Refill Less than 3 Seconds Skin: No rashes, No breakdown Musculoskeletal: No Tenderness to Palpation of Joints or Extremities. ROM intact. Neurological: Cranial nerves II-XII grossly intact, DTR 2+/4 and Symmetrical, Neuro grossly intact Psych/Mental Status: Normal Affect, Appropriate. Weight / BMI Weight Weight: 190 lb Body Mass Index (BMI) 30.7 ABG / Lab / Microbiology Data Result Diagrams: 10/09/22 06:05 10/09/22 06:05 Microbiology: Microbiology 10/09/22 11:00 Mucosa - Nose Respiratory Panel (PCR) - Final Human [place] 10/08/22 13:30 Nasal Secretion SARS-CoV-2 & FLU Antigen (Rapid) - Final D/C Instructions Discharge Diet: 2000 mg Sodium Diet Weight Bearing Status: Weight bearing as tolerated Call your doctor if you observe: Fever of 101 or Higher, Coldness, Increased Pain, Numbness or Tingling, Change in Color, Inability to urinate, Inability to have a bowel movement, Using more than 1 pad per hour, Shortness of breath, Dizziness, Fainting spells, Swelling in the ankles, Chest pain, Prolonged hiccupping, Increased palpitations (irregular heartbeat) and Calf discomfort When: IN 2 WEEKS Meaningful Use Info Meaningful Use Diagnoses (Choose all that apply): None applicable Discharge Plan Admission Admit Date/Time: 10/08/22 14:53 Primary Reason for Your Visit: acute viral bronchitis Attending Provider: Raudel Stoner Primary Care Provider: Carl Bourgeois Consulting Providers: Rajat Dalal Discharge Orders/Prescriptions Prescriptions: New pseudoephedrine-guaifenesin [Mucus D] 120-1,200 mg tablet extended release 12 hr 1 tab PO Q12H Qty: 14 0RF albuterol sulfate 90 mcg/actuation HFA aerosol inhaler 2 inh inhalation Q6H PRN (Reason: shortness of breath or wheezing) Qty: 8.5 0RF cefdinir 300 mg capsule 300 mg PO BID Qty: 10 0RF Continued folic acid 1 mg tablet 1 mg PO BID methotrexate sodium 2.5 mg tablet 15 mg PO ARIAS hydroxychloroquine [Plaquenil] 200 mg tablet 200 mg PO BID calcium carbonate-vitamin D3 500 mg-10 mcg (400 unit) tablet 1 tab PO TID loratadine [Allergy Relief (loratadine)] 10 mg tablet 10 mg PO DAILY PRN (Reason: allergic symptoms) potassium chloride 10 mEq tablet,ER particles/crystals 10 meq PO BID propranolol 40 mg tablet 40 mg PO DAILY hydrochlorothiazide 25 MG tablet 25 mg PO DAILY ibandronate 150 MG tablet 150 mg PO Q30D ferrous sulfate 325 mg (65 mg iron) Tablet 325 mg PO DAILY duloxetine 60 mg capsule,delayed release(DR/EC) 60 mg PO BID buspirone 5 mg tablet 5 mg PO BID meclizine 12.5 mg tablet 12.5 mg PO DAILY PRN (Reason: DIZZINESS ) aspirin [Adult Low Dose Aspirin] 81 mg tablet,delayed release (DR/EC) 81 mg PO DAILY prednisone 10 mg tablet 10 mg PO DAILY PRN (Reason: STEROID) Discontinued clindamycin HCl 300 mg capsule 300 mg PO TID Referrals / Follow Up: Negrito Shi DO [Med Staff - Active Staff] - Within 1 Month (CHRONIC Cough for 1 month, PFT, non smoker) Carl Bourgeois DO [Primary Care Provider] - Disposition Disposition (needs filled in before D/C Order can be placed): Home, Self Care Charges/Coding Visit Charges Inpatient E&M: 33183 Disch Hosp >30min
[2022-10-10 12:33] VITALS: O2SAT 87; O2SAT 89; O2SAT 96
[2022-10-10 13:02] VITALS: BP 119/63; PULSE 46; RESP 14; TEMP 36.8; O2SAT 2
[2022-10-10 13:14] VITALS: PULSE 63; RESP 16
--- NOTE | 2022-10-10 13:19 | NURSING ---
Call placed to [facility] to set up home oxygen.
== END 2022-10-10 14:28 | disposition home or self-care (01) | DRG 194 ==
LOC: ED 14:52 → PCU 15:24
PROVIDERS: Admitting Provider Family Medicine; Emergency Provider Emergency Medicine; PCP Family Medicine; Visit Provider Internal Medicine
DX: J18.9 Pneumonia, unspecified organism (principal); G45.9 Transient cerebral ischemic attack, unspecified; M32.9 Systemic lupus erythematosus, unspecified; I10 Essential (primary) hypertension; I69.322 Dysarthria following cerebral infarction; J20.9 Acute bronchitis, unspecified; I69.320 Aphasia following cerebral infarction; M48.02 Spinal stenosis, cervical region; F32.A Depression, unspecified; Z79.83 Long term (current) use of bisphosphonates; R09.02 Hypoxemia; R41.82 Altered mental status, unspecified; Z82.3 Family history of stroke; Z79.82 Long term (current) use of aspirin
CPT/HCPCS: 36415; 70450; 70496; 70498; 70551; 71045; 80048; 84484; 85025; 85610; 85730; 87428; 87633; 93005; 94640; 97162; 97166; 99285; J7030; Q9967; A4216; J2405

== ENCOUNTER → 2022-10-27 | Outpatient (CLI) | payer MEDICARE, OTHER, SELFPAY ==
[2022-10-27 12:38] LABS: Absolute Lymphocyte Count 0.72 X10^3/uL (0.83-4.51); Absolute Neutrophil Count 4.8 X10^3/uL (2.0-7.7); Basophil% 1.7 % (0-1); Eosinophil# 0.09 X10^3/uL; Eosinophils% 1.5 % (0-5); Hemoglobin 11.8 g/dL (12.0-15.0); Lymphocyte # 0.72 X10^3/ul (0.83-4.51); Lymphocyte % 11.9 % (19-41); Mean Corp Hgb Conc 31.9 g/dL (32-36); Mean Corpuscular Hgb 32.8 pg (27.0-32.0); Mean Corpuscular Volume 102.8 fL (81-99); Mean Platelet Vol. 10.8 fl (6.2-12.0); Monocyte# 0.29 X10^3/uL; Monocyte% 4.8 % (0-10); NRBC Flagged by Analyzer 0 % (0-5); Neutrophil # 4.83 X10^3/uL (2.7-7.7); Neutrophil % 79.8 % (47-70); Platelet Count 351 K/mm3 (150-450); RBC Distribution Width CV 13.1 % (11.6-14.6); RBC Distribution Width SD 48.7 fl (35.1-43.9); White Blood Count 6.1 K/mm3 (4.4-11.0)
[2022-10-27 13:06] LABS: AST(SGOT) 24 U/L (15-37); Alanine Aminotransfer ALT/SGPT 22 U/L (13-56); Albumin, Serum 3.4 g/dL (3.2-5.0); Alkaline Phosphatase 52 U/L (45-117); Anion Gap 2 (5-15); BUN 14 mg/dL (7-18); BUN/Creat Ratio 13.6 RATIO (10-20); Calcium,Total 9.2 mg/dL (8.5-10.1); Chloride 105 mmol/L (98-107); Creatinine, Serum 1.03 mg/dL (0.55-1.02); EST Glomerular Filtration Rate 56 mL/min (>60); Est Glom Filt Rate - Afr Amer 68 mL/min (>60); Globulin 3.5 g/dL (2.2-4.2); Glucose 98 mg/dL (74-106); Potassium 3.7 mmol/L (3.5-5.1); Protein, Total 6.9 g/dL (6.4-8.2); Sodium Level 137 mmol/L (136-145)
== END | disposition home or self-care (01) ==
LOC: MTLAB 10:22
PROVIDERS: PCP Family Medicine; Referring Provider Internal Medicine Rheumatology; Visit Provider Internal Medicine Rheumatology
DX: M06.4 Inflammatory polyarthropathy (principal); Z79.899 Other long term (current) drug therapy
CPT/HCPCS: 36415; 80053; 85025

== ENCOUNTER 2022-11-30 09:00 | Outpatient (RCR) | payer MEDICARE, OTHER, SELFPAY ==
--- NOTE | 2022-05-21 14:19 | HP.PTEVAL ---
Patient's Visit Information YADIRA PEREZ is a 72 year old F referred to Physical Therapy by Dr. Carl Bourgeois DO with a diagnosis of INFLAMMATORY POLYARTHROPATHY. Date of Evaluation: 05/21/22 Physical Therapist: Radha Mcgrath PT, Cert MDT - Visit Plan Frequency: 2-3x /Week Duration: 4-6 Weeks Plan: TRIAL OF AQUATIC THERPAY STARTING VERY SLOW. NO BACK EXTENSION. NEUTRAL SPINE ONLY. POSTURE CORRECTION/STRENGTHENING, INSTRUCTION IN APPROPRIATE BODY MECHANICS AND ACTIVITY MODIFICATIONS. DLS WITH NEUTRAL SPINE ONLY. RANDY LE ROM, STRETCHING AND STRENGTHENING. HEP INSTRUCTION. - Subjective Present symptoms: RANDY LOW BACK AND HIP PAIN. RANDY THIGH PAIN. TOES ARE NUMB. PATIENT REPORTS SHE IS HAVING TROUBLE WITH HER LEGS AND WALKING. STATES SHE CAN ONLY WALK A FEW STEPS WITHOUT HER ROLLATOR OR CANE. USES ROLLATOR ALMOST ALL THE TIME. Present since: 6-8 MONTHS. Pain Scale: WORST 5/10, LEAST 0/10. Currently: 0/10. Is it getting better, worse or staying the same: UNCHANGING. Commenced as a result of: NO APPARENT REASON. Symptoms at onset: I COULDN'T WALK ON MY OWN. Worse: STANDING AND WALKING. Better: SITTING. Disturbed sleep: NO. Previous history/Previous treatment: R THR 2016 (HIP INJECTIONS PRIOR TO SX) NO BACK SURGERY. MANY YEARS OF CHIROPRACTIC ADJUSTMENTS. H/O MASSAGE THERAPY. STILL CURRENTLY GOING TO CHIROPRACTOR AND MASSAGE THERAPIST. Treatment this episode: PATIENT REPORTS DR. MASCORRO REFERRED HER TO DR. WALKER. CONSULT WITH DR. WALKER. PATIENT REPORTS DR. WALKER REFERRED HER TO DR. SHOOK AND DR. MARIN. BACK INJECTION WITH DR. MARIN IN PAIN MGMT YESTERDAY (FIRST TIME HAVING BACK INJECTIONS). SHE REPORTS HER LOW BACK PAIN IS BETTER SINCE THE INJECTION. ALSO HAD CONSULT WITH DR. CHRISTOPHER BECAUSE OF TOES GOING NUMB. SHE REPORTS DR. CHRISTOPHER'S TESTING SHOWED DECRASED BLOOD FLOW IN HER FEET. PATIENT REPORTS DR. CHRISTOPHER JUST TOLD HER TO TRY TO KEEP HER FEET WARM AND NO OTHER TREATMENT RECOMMENDED. PATIENT ALSO REPORTS SHE HAS ALSO HAD A CONSULT WITH DR. GARRIDO FOR NECK PAIN, NECK MRI AND NECK INJECTION BY DR. MARIN SINCE ONSET OF DIFFICULTY WALKING ABOUT 8 MONTHS AGO. PT CONSULT WITH DINA AT [facility] 3 WKS AGO, WAS GIVEN HOME EX INSTRUCTIONS AND REFERRED TO PT HERE AT [facility] BECAUSE GETTING SPEECH THERAPY HERE. DOING HOME EX PROGRAM 1-2 TIMES A DAY INCLUDING: SEATED KNEE EXT, MARCHING, HEEL RAISES, ISO HIP ADD AND TBAND HIP ABD ALONG WITH SOME ARM EX'S. Coughing/sneezing/straining: NEGATIVE. Gait: PATIENT REPORTS SHE NOW WALKS VERY SLOW AND SHUFFLES. STATES SHE CAN'T PICK HER FEET UP LIKE SHE SHOULD. LAST FALL WAS AUG 2021 ABOUT WHEN THIS STARTED. Bowel or Bladder Dysfunction: NO. Accidents: NO. Unexplained weight loss: NO. Imaging: LUMBAR MRI MAR 2022: STUDY: MRI LUMBAR SPINE WITHOUT CONTRAST. REASON FOR EXAM: Female, 71 years old. BILAT LEG WEAKNESS,LBP, DDD. TECHNIQUE: Standardized fat and water weighted pulse sequences were. obtained in the sagittal and axial planes. COMPARISON: None. . FINDINGS: T12-L1: Normal endplates. Normal disc height, hydration and morphology. Normal bilateral facet joints. Normal central canal and bilateral lateral. recesses. Normal bilateral intervertebral neural foramina. Normal lumbar lordosis. There is no substantial scoliosis. Normal conus. medullaris that terminates at the T12/L1. L1-2: Disc desiccation but no disc protrusion, spinal stenosis, or neural. foraminal stenosis. L2-3: Mild bilateral facet hypertrophy and ligament flavum hypertrophy. Mild bilobed disc protrusion produces mild spinal stenosis and mild. bilateral neural foraminal stenosis. L3-4: Normal endplates. Normal disc height, hydration and morphology. Normal bilateral facet joints. Normal central canal and bilateral lateral. recesses. Normal bilateral intervertebral neural foramina. L4-5: Severe bilateral facet hypertrophy and moderate ligament flavum. hypertrophy. 2 mm of anterolisthesis of L4 on L5 and a mild broad disc. protrusion produces moderate spinal stenosis and moderate bilateral neural. foraminal stenosis with abutment of the exiting L4 nerve roots by. laterally. L5-S1: Normal endplates. Normal disc height, hydration and morphology. Normal bilateral facet joints. Normal central canal and bilateral lateral. recesses. Normal bilateral intervertebral neural foramina. Normal visualized sacral ala. Normal visualized paraspinous soft tissue structures. . MRI/Spine Lumbar (Routine). IMPRESSION: Multilevel degenerative changes, as described above. . Electronically Signed: Jim Soriano MD. at 16:50 EDT. , Fax [phone] APR 30 2022 BRAIN MRI: HISTORY: CVA. TECHNIQUE: Multiplanar and multisequence MR images of the brain were obtained without. contrast. 340 images. COMPARISON: CT prior day, MR 09/12/2018. FINDINGS: BRAIN PARENCHYMA: Multiple foci and small zones of increased T2 FLAIR. signal in the bilateral cerebral white matter mildly progressed from prior. No abnormal focus of restricted diffusion. No acute intracranial. hemorrhage identified. CSF SPACES: Mild generalized volume loss. No significant midline shift or. other mass effect.No extra-axial fluid collection. VASCULAR SYSTEM: Major intracranial flow voids are maintained. PARANASAL SINUSES AND MASTOID AIR CELLS: Small right maxillary sinus mucous. retention cyst. ORBITS: Symmetric contents. MRI/Brain without Contrast. IMPRESSION: . No evidence for acute infarct. Chronic involutional and white matter changes. . Electronically Signed: Hanna Marquez MD. at 11:19 EDT. PMH/Recent major surgery: VERTIGO. FIBROMYALGIA. HTN. PATIENT REPORTS THE DOCTORS SUSPECTED SHE HAD A STROKE BUT IT WAS RULED OUT WITH TESTING. PATIENT REPORTS THE DOCTORS SUSPECT SHE HAS MS. HAD SPEECH THERAPY AFTER ONSET OF SPEECH PROBLEMS AFTER TAKING MEDICINE FOR HEADACHES. REPORTS SHE HAS BEEN RELEASED FROM SPEECH THERPAY. - Objective THIS PATIENT AMBULATES INDEP'LY INTO PT TODAY WITH A ROLLATOR. NO LOB. SHE WALKS WITH A SHUFFLE TYPE GAIT, DECREASED CADANCE AND DECREASED RANDY STRIDE LENGTH. SITTING AND STANDING POSTURE IS POOR WITH INCREASED TRUNK FLEXION. Active Correction of posture: NE. Other Observations: PATIENT IS VERY RANDY UE DEPENDENT TO TRANSFER FROM SIT TO STAND. Sensory Deficit: RANDY LE LIGHT TOUCH SENSATION IS GROSSLY INTACT BUT FEET NT. ROM deficit: RANDY LE HS AND GASTROC SOLEUS TIGHTNESS. Motor deficit: RANDY LE'S GROSSLY 4/5 WITH MMT'ING. Lumbar mvmt loss: flex - MOD. ext - NT. R SG - URI. L SG - URI. PATIENT DENIES INCREASED PAIN WITH LUMBAR ROM TESTING TODAY. Core strength: POOR. Palpation: NO ACUTE HIP OR LOW BACK TENDERNESS. - Balance/Special Test Scores Lower Extremity Functional Score: 23 TUG Test Time Seconds: 28.61 30 Second Chair Rise Test Seconds: 3 - Goals Goal 1:: PATIENT WILL COMPLETE 6 STANDS IN 30 SECS TO DEMONSTRATE IMPROVED FUNCTIONAL STRENGTH Goal Time Frame: 2-4 Weeks Goal 2:: PATIENT WILL COMPLETE TUG IN < 20 SECS TO DEMONSTRATE IMPROVED GAIT STABILITY Goal Time Frame: 4-6 Weeks Goal 3:: PATIENT WILL AMBULATE 500 FEET WITH WW WITH SUPERVISION X 1 TO IMPROVE ACTIVITY TOLERANCE Goal Time Frame: 4-6 Weeks Goal 4:: PATIENT WILL BE INDEP WITH A HEP FOR CONTINUED IMPROVEMENT ONCE FORMAL PHYSICAL THERAPY CONCLUDES. Goal Time Frame: 4-6 Weeks Goal 5:: PATIENT WILL BE ABLE TO GO UP AND DOWN CURB SAFELY WITH LEAST ASSISTANCE. Goal Time Frame: 4-6 Weeks - Anticipated Interventions Patient/Client Instruction: Educate patient on: Condition, Plan of Care, Risk Factors For the Purpose of:: To improve self management Therapeutic Exercise to Include: Strength training, Body mechanics, Postural training, Flexibilty training, Gait and locomotor training, Neuromotor development, In an aquatic setting, Dynamic Lumbar Stabilization For the Purpose of:: To decrease pain, To increase ROM, To improve muscle performance and motor function, To increase tolerance to activity/condition/position, To improve ability of physical actions for home/community/work/leisure, To improve gait and locomotor functions Thank you for the opportunity to evaluate your patient. For Medicare and Medicare HMO plans, please review the plan of care and approve it. It will need to be FAXED BACK to us at [phone] for Medicare purposes. For Medicare only, by signing this I certify the plan of care. Please let me know if there are questions or concerns regarding this plan of care. Physician Signature: Date:
--- NOTE | 2022-06-23 10:49 | HP.PTREVAL ---
Dr. 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 Please see the progress note below for an update on the physical therapy plan of care! Subjective: PATIENT REPORTS THERAPY IS HELPING AND SHE WOULD LIKE TO CONTINUE. SHE REPORTS SHE IS DEFINATELY NOT WORSE AND SHE IS GETTING BETTER. SHE REPORTS HER DIZZINESS IS STILL A FACTOR IN HER MOBILITY BUT HER DIZZINESS IS NOT BETTER AND NOT WORSE SINCE STARTING PT. [facility] PENDING IN [address] SHOOK AND SHE PLANS TO DISCUSS HER DIZZINESS WITH HIM. PATIENT REPORTS SHE IS ABLE TO STAND UP FROM SITTING BETTER. SHE REPORTS SHE USE TO HAVE TO HAVE SOMEONE HELP HER UP. SHE REPORTS SHE IS FEELING STEADIER IN GENERAL AND USING HER CANE MORE WALKING AROUND THE HOUSE. SHE REPORTS SHE EVEN WALKS WITHOUT AD AT TIMES IN THE HOUSE. Objective/Function: PATIENT WAS SEEN TODAY FOR RE-ASSESSMENT OF PROGRESS TOWARD THE SET PT GOALS AND THE NEED FOR FURTHER PHYSICAL THERAPY VS READINESS FOR DISCHARGE. PATIENT IS A GOOD CANDIDATE TO CONTINUE PT BASED ON PROGRESS MADE AND ROOM FOR FUTHER IMPROVEMENT. PATIENT IS MAKING PROGRESS IN TERMS OF TRANSFERS, GAIT AND STRENGTH (SEE TUG TIME AND STS TESTS BELOW) BUT AT LEAST PARTIALLY LIMITED BY DIZZINESS. SHE CONTINUES TO BE RANDY UE DEPENDENT TO TRANSFER FROM SIT TO STAND BUT NOW ABLE TO DO IT IN ONE ATTEMPT. SHE DEMO'S INDEP GAIT WITH ROLLATOR X 350 FEET TODAY SAFELY BUT CADANCE IS SLOW (SEE TUG TIME). PATIENT DEMO'S ABILITY TO STEP UP 4 STEP TODAY IN PARALLEL BARS WITH MODERATE RANDY UE ASSIST LEADING WITH THE LEFT LEG FIRST AND THEN ALSO LEADING WITH LEFT LEG. Plan Plan: CONT PER POC 2X'S A WK X 10 VISITS PROGESSING TOLERATED. STARTING VERY SLOW. NO BACK EXTENSION. NEUTRAL SPINE ONLY. POSTURE CORRECTION/STRENGTHENING, INSTRUCTION IN APPROPRIATE BODY MECHANICS AND ACTIVITY MODIFICATIONS. DLS WITH NEUTRAL SPINE ONLY. RANDY LE ROM, STRETCHING AND STRENGTHENING. HEP INSTRUCTION. Balance/Gait/Functional tests - Balance/Special Test Scores Lower Extremity Functional Score: 30 TUG Test Time Seconds: 27.89 Tug Test: 20-30sec.=variable mobility 30 Second Chair Rise Test Seconds: 6 Goals Goal 1:: PATIENT WILL COMPLETE 6 STANDS IN 30 SECS TO DEMONSTRATE IMPROVED FUNCTIONAL STRENGTH Goal Time Frame: 2-4 Weeks Goal Progress: Goal Met Goal 2:: PATIENT WILL COMPLETE TUG IN < 20 SECS TO DEMONSTRATE IMPROVED GAIT STABILITY Goal Time Frame: 4-6 Weeks Goal Progress: Progressing Goal 3:: PATIENT WILL AMBULATE 500 FEET WITH WW WITH SUPERVISION X 1 TO IMPROVE ACTIVITY TOLERANCE Goal Time Frame: 4-6 Weeks Goal Progress: Progressing Goal 4:: PATIENT WILL BE INDEP WITH A HEP FOR CONTINUED IMPROVEMENT ONCE FORMAL PHYSICAL THERAPY CONCLUDES. Goal Time Frame: 4-6 Weeks Goal Progress: Progressing Goal 5:: PATIENT WILL BE ABLE TO GO UP AND DOWN CURB SAFELY WITH LEAST ASSISTANCE. Goal Time Frame: 4-6 Weeks Goal Progress: Progressing Anticipated Interventions Patient/Client Instruction: Educate patient on: Condition, Plan of Care, Risk Factors For the Purpose of:: To improve self management Therapeutic Exercise to Include: Strength training, Body mechanics, Postural training, Flexibilty training, Gait and locomotor training, Neuromotor development, In an aquatic setting, Dynamic Lumbar Stabilization For the Purpose of:: To decrease pain, To increase ROM, To improve muscle performance and motor function, To increase tolerance to activity/condition/position, To improve ability of physical actions for home/community/work/leisure, To improve gait and locomotor functions Please do not hesitate to contact me at [phone] by phone or if you have questions or concerns regarding this new plan of care! Sincerely, Radha Mcgrath, PT, Cert MDT
--- NOTE | 2022-09-21 18:23 | HP.PTREVAL ---
Dr. Carl Bourgeois, DO, It has been my pleasure to treat YADIRA PEREZ over the last 24 visits for INFLAMMATORY POLYARTHROPATHY. Please see the progress note below for an update on the physical therapy plan of care! Subjective: PATIENT REPORTS SHE IS HAPPY WITH PT. SHE REPORTS CONTINUING THERAPY HAS benefitted HER. SHE REPORTS SHE CAN GET UP OUT OF THE CHAIR BY HERSELF AND EVEN CAN WALK AT HOME SOME IN THE HOUSE WITHOUT HER ROLLATOR. HASN'T FALLEN FOR AT LEAST A FEW MONTHS. Objective/Function: PATIENT WAS SEEN TODAY FOR RE-ASSESSMENT OF PROGRESS TOWARD THE SET PT GOALS AND THE NEED FOR FURTHER PHYSICAL THERAPY VS READINESS FOR DISCHARGE. PATIENT IS A GOOD CANDIDATE TO CONTINUE PT BASED ON PROGRESS MADE AND ROOM FOR FUTHER IMPROVEMENT. PATIENT IS MAKING PROGRESS IN TERMS OF TRANSFERS, GAIT AND STRENGTH (SEE TUG TIME AND STS TESTS BELOW) AND NOW ABLE TO TRANSFER SIT TO STAND WITH ONE VS TWO UE ASSIST. SHE DEMO'S INDEP GAIT WITH ROLLATOR X 350 FEET TODAY SAFELY BUT CADANCE IS SLOW (SEE TUG TIME). Plan Plan: CONTINUE TO INCREASE TIME VS RESISTANCE ON NUSTEP UNTIL REACHING 10 MIN. INCORPORATE STEP UPS. CONT PER POC 2X'S A WK X 4-6 WKS X 10 VISITS PROGESSING TOLERATED AND INCORPORATING STEP UPS, SIT TO STAND TRAINING AND GAIT ENDURANCE TRAINING TO HELP MEET SET GOALS. GIVE HEP IN PREPARATION FOR DISCHARGE. NO BACK EXTENSION. NEUTRAL SPINE ONLY. POSTURE CORRECTION/STRENGTHENING, INSTRUCTION IN APPROPRIATE BODY MECHANICS AND ACTIVITY MODIFICATIONS. DLS WITH NEUTRAL SPINE ONLY. RANDY LE ROM, STRETCHING AND STRENGTHENING. Balance/Gait/Functional tests - Balance/Special Test Scores Lower Extremity Functional Score: 30 TUG Test Time Seconds: 18.99 Tug Test: 20-30sec.=variable mobility 30 Second Chair Rise Test Seconds: 8 Goals Goal 1:: PATIENT WILL COMPLETE 9 STANDS IN 30 SECS W/ ONE UE ASSIST TO DEMONSTRATE IMPROVED FUNCTIONAL STRENGTH Goal Time Frame: 2-4 Weeks Goal Progress: NEW GOAL Goal 2:: PATIENT WILL COMPLETE TUG IN < 15 SECS TO DEMONSTRATE IMPROVED GAIT STABILITY Goal Time Frame: 4-6 Weeks Goal Progress: NEW GOAL Goal 3:: PATIENT WILL AMBULATE 500 FEET WITH WW WITH SUPERVISION X 1 TO IMPROVE ACTIVITY TOLERANCE Goal Time Frame: 4-6 Weeks Goal Progress: Goal Met Goal 4:: PATIENT WILL BE INDEP WITH A HEP FOR CONTINUED IMPROVEMENT ONCE FORMAL PHYSICAL THERAPY CONCLUDES. Goal Time Frame: 4-6 Weeks Goal Progress: Progressing Goal 5:: PATIENT WILL BE ABLE TO GO UP AND DOWN CURB SAFELY WITH LEAST ASSISTANCE. Goal Time Frame: 4-6 Weeks Goal Progress: Progressing Anticipated Interventions Patient/Client Instruction: Educate patient on: Condition, Plan of Care, Risk Factors For the Purpose of:: To improve self management Therapeutic Exercise to Include: Strength training, Body mechanics, Postural training, Flexibilty training, Gait and locomotor training, Neuromotor development, In an aquatic setting, Dynamic Lumbar Stabilization For the Purpose of:: To decrease pain, To increase ROM, To improve muscle performance and motor function, To increase tolerance to activity/condition/position, To improve ability of physical actions for home/community/work/leisure, To improve gait and locomotor functions Please do not hesitate to contact me at [phone] by phone or if you have questions or concerns regarding this new plan of care! Sincerely, Radha Mcgrath, PT, Cert MDT
--- NOTE | 2022-10-27 11:31 | HP.PTREVAL ---
Dr. Carl Bourgeois, DO, It has been my pleasure to treat YADIRA PEREZ over the last 27 visits for INFLAMMATORY POLYARTHROPATHY. Please see the progress note below for an update on the physical therapy plan of care! Subjective: PATIENT REPORTS SHE GOT SICK AND GOT TO THE POINT THAT SHE COULDN'T EVEN GET TO THE BATHROOM ON HER OWN. SHE WAS ADMITTED HER TO THE HOSPITAL WITH A DX OF A pneumonia. SHE REPORTS SHE IS SLOWLY GETTING BETTER BUT HASN'T BEEN ACTIVE AT ALL SINCE LAST PT VISIT (10/01/22). PULMONOLOGY JENNIFER'T PENDING 10/29/22. Objective/Function: PATIENT WAS SEEN TODAY FOR RE-ASSESSMENT OF PROGRESS TOWARD THE SET PT GOALS AND THE NEED FOR FURTHER PHYSICAL THERAPY VS READINESS FOR DISCHARGE. PATIENT IS A GOOD CANDIDATE TO RESUME PT BASED ON PROGRESS MADE IN THE PAST PRIOR TO RECENT ILLNESS AND HER DESIRE TO RESUME. PATIENT WAS MAKING PROGRESS IN TERMS OF TRANSFERS, GAIT AND STRENGTH PRIOR TO ILLNESS. SEE NEW STS AND TUG SCORES BELOW. SHE DEMO'S INDEP GAIT WITH ROLLATOR 2X100 FEET TODAY WITH VERY SLOW CADANCE BUT NO LOB. Plan Plan: Progress HEP ea visit. Continue to INCORPORATE STEP UPS. CONT PER POC 2X'S A WK X 4-6 WKS X 10 VISITS PROGESSING TOLERATED AND INCORPORATING STEP UPS, SIT TO STAND TRAINING AND GAIT ENDURANCE TRAINING TO HELP MEET SET GOALS. GIVE HEP IN PREPARATION FOR DISCHARGE. NO BACK EXTENSION. NEUTRAL SPINE ONLY. POSTURE CORRECTION/STRENGTHENING, INSTRUCTION IN APPROPRIATE BODY MECHANICS AND ACTIVITY MODIFICATIONS. DLS WITH NEUTRAL SPINE ONLY. RANDY LE ROM, STRETCHING AND STRENGTHENING. Balance/Gait/Functional tests - Balance/Special Test Scores Lower Extremity Functional Score: 26 TUG Test Time Seconds: 27.87 Tug Test: 20-30sec.=variable mobility 30 Second Chair Rise Test Seconds: 5 Goals Goal 1:: PATIENT WILL COMPLETE 9 STANDS IN 30 SECS W/ ONE UE ASSIST TO DEMONSTRATE IMPROVED FUNCTIONAL STRENGTH Goal Time Frame: 2-4 Weeks Goal Progress: NEW GOAL Goal 2:: PATIENT WILL COMPLETE TUG IN < 15 SECS TO DEMONSTRATE IMPROVED GAIT STABILITY Goal Time Frame: 4-6 Weeks Goal Progress: NEW GOAL Goal 3:: PATIENT WILL AMBULATE 500 FEET WITH WW WITH SUPERVISION X 1 TO IMPROVE ACTIVITY TOLERANCE Goal Time Frame: 4-6 Weeks Goal Progress: Goal Met Goal 4:: PATIENT WILL BE INDEP WITH A HEP FOR CONTINUED IMPROVEMENT ONCE FORMAL PHYSICAL THERAPY CONCLUDES. Goal Time Frame: 4-6 Weeks Goal Progress: Progressing Goal 5:: PATIENT WILL BE ABLE TO GO UP AND DOWN CURB SAFELY WITH LEAST ASSISTANCE. Goal Time Frame: 4-6 Weeks Goal Progress: Progressing Anticipated Interventions Patient/Client Instruction: Educate patient on: Condition, Plan of Care, Risk Factors For the Purpose of:: To improve self management Therapeutic Exercise to Include: Strength training, Body mechanics, Postural training, Flexibilty training, Gait and locomotor training, Neuromotor development, In an aquatic setting, Dynamic Lumbar Stabilization For the Purpose of:: To decrease pain, To increase ROM, To improve muscle performance and motor function, To increase tolerance to activity/condition/position, To improve ability of physical actions for home/community/work/leisure, To improve gait and locomotor functions Please do not hesitate to contact me at [phone] by phone or if you have questions or concerns regarding this new plan of care! Sincerely, Radha Mcgrath, PT, Cert MDT
--- NOTE | 2022-11-30 09:49 | HP.PTDCSUM ---
It has been my pleasure to treat YADIRA PEREZ referred by Dr. Carl Bourgeois DO, with the diagnosis of INFLAMMATORY POLYARTHROPATHY for a total of 36 visit(s). Discharge Date: Please see the following information for a summary of their discharge status. Subjective: PATIENT REPORTS SHE IS TAKING HER MEDICATION FOR DIZZINESS EVERYDAY NOW AND IT HELPS. SHE STATES SHE HAS COME A LONG WAY WITH PT AND FEELS SHE HAS HAD 80% IMPROVEMENT SINCE STARTING PT. STATES SHE WAS ABLE TO WALK AROUND THE FACILITY X 2 WITHOUIT A BREAK LAST VISIT. I AM JUST SO PLEASED WITH HOW I AM DOING. STATES SHE SHE CAN DO CURBS WITH THE HELP OF HER WITH ONE HAND NOW WHEN THEY GO OUT TO EAT OR SHOPPING. STATES SHE CAN GET IN AND OUT OF THE HOUSE (ONE STEP) NOW BY HERSELF BUT HAS TO HOLD DOOR FRAME ON BOTH SIDES BECAUSE THERE IS NO HR. IS PLANNING TO PUT A GRAB BAR UP. PATIENT REPORTS SHE HAS BEEN GETTING B12 SHOTS AND THEY ARE HELPING HER WITH HER ENERGY. SHE REPORTS SHE BOUGHT CUFF WEIGHTS, HAS HER BIKE AND COUNTER HOME EX'S THAT SHE IS DOING NOW. PATIENT REPORTS SHE IS EVEN WALKING AROUND THE HOUSE WITHOUT HER ROLLATOR OR CANE SOMETIMES TOO. PATIENT REPORTS SHE DROVE TO PICK HER UP FROM THE CLEANING HANDYMAN RECENTLY AND IT WENT REALLY WELL. [place] Pain Intensity (Out of 10): Unrated GENERALIZED PAIN Pain Intensity (Out of 10): 0 % Improvement: 80 Objective/Function: PATIENT WAS SEEN TODAY FOR RE-ASSESSMENT OF PROGRESS TOWARD THE SET PT GOALS AND THE NEED FOR FURTHER PHYSICAL THERAPY VS READINESS FOR DISCHARGE. ALL PT GOALS HAVE BEEN MET AND PATIENT IS APPROPRIATE FOR AND AGREEABLE TO D/C. LEFS SCORE HAS IMPROVED FROM 26 TO 33 SINCE LAST RE-CHECK. Goal 1:: PATIENT WILL COMPLETE 9 STANDS IN 30 SECS W/ ONE UE ASSIST TO DEMONSTRATE IMPROVED FUNCTIONAL STRENGTH Goal Progress: Goal Met Goal 2:: PATIENT WILL COMPLETE TUG IN < 15 SECS TO DEMONSTRATE IMPROVED GAIT STABILITY Goal Progress: Goal Met Goal 3:: PATIENT WILL AMBULATE 500 FEET WITH WW WITH SUPERVISION X 1 TO IMPROVE ACTIVITY TOLERANCE Goal Progress: Goal Met Goal 4:: PATIENT WILL BE INDEP WITH A HEP FOR CONTINUED IMPROVEMENT ONCE FORMAL PHYSICAL THERAPY CONCLUDES. Goal Progress: Goal Met Goal 5:: PATIENT WILL BE ABLE TO GO UP AND DOWN CURB SAFELY WITH LEAST ASSISTANCE. Goal Progress: Goal Met Plan: D/C TO INDEP HEP. PATIENT IS AGREEABLE. If there are questions or concerns regarding this patient's physical therapy, please feel free to call me at [phone]. Thank you for the referral of this patient. Sincerely, Radha Mcgrath, PT, Cert MDT Balance/Gait/Functional tests - Balance/Special Test Scores Lower Extremity Functional Score: 33 TUG Test Time Seconds: 19.28 Tug Test: 20-30sec.=variable mobility 30 Second Chair Rise Test Seconds: 9
== END 2022-11-30 10:42 | disposition home or self-care (01) ==
LOC: PT 09:00
PROVIDERS: PCP Family Medicine; Referring Provider Family Medicine; Visit Provider Family Medicine
DX: R29.898 Other symptoms and signs involving the musculoskeletal system (principal); M06.4 Inflammatory polyarthropathy
CPT/HCPCS: 97110; 97162; 97164; 97530

== ENCOUNTER → 2023-01-07 | Outpatient (CLI) | payer MEDICARE, OTHER, SELFPAY ==
[2023-01-12 13:08] LABS: Alternaria tenuis <0.10 kU/L (Class 0); Ash, White <0.10 kU/L (Class 0); Aspergillus fumigatus <0.10 kU/L (Class 0); Bermuda Grass <0.10 kU/L (Class 0); Birch <0.10 kU/L (Class 0); Black Walnut <0.10 kU/L (Class 0); Cat Hair / Dander,Stand <0.10 kU/L (Class 0); Cedar, Mountain <0.10 kU/L (Class 0); Cladosporium herbarum <0.10 kU/L (Class 0); Cockroach, American <0.10 kU/L (Class 0); Cottonwood <0.10 kU/L (Class 0); D farinae Mite <0.10 kU/L (Class 0); D pteronyssinus <0.10 kU/L (Class 0); Dog Epithelia <0.10 kU/L (Class 0); Elm, American White <0.10 kU/L (Class 0); Immunoglobulin E 34 IU/mL (6-495); Maple/Box Elder <0.10 kU/L (Class 0); Mouse Urine <0.10 kU/L (Class 0); Mulberry, White <0.10 kU/L (Class 0); Oak, White <0.10 kU/L (Class 0); Pecan <0.10 kU/L (Class 0); Penicillium Notatum <0.10 kU/L (Class 0); Pigweed, Rough <0.10 kU/L (Class 0); Ragweed, Short/Common <0.10 kU/L (Class 0); Russian Thistle <0.10 kU/L (Class 0); Sheep Sorrel <0.10 kU/L (Class 0); Sycamore, American <0.10 kU/L (Class 0); Timothy Grass <0.10 kU/L (Class 0)
== END | disposition home or self-care (01) ==
LOC: BFHLAB 15:39
PROVIDERS: PCP Family Medicine; Visit Provider Family Medicine
DX: J30.9 Allergic rhinitis, unspecified (principal)
CPT/HCPCS: 36415; 82785; 86003

== ENCOUNTER → 2023-01-21 | Outpatient (CLI) | payer MEDICARE, OTHER, SELFPAY ==
[2023-01-21 17:41] LABS: Absolute Lymphocyte Count 1.16 X10^3/uL (0.83-4.51); Absolute Neutrophil Count 3.2 X10^3/uL (2.0-7.7); Basophil# 0.05 X10^3/uL; Eosinophil# 0.11 X10^3/uL; Eosinophils% 2.2 % (0-5); Hematocrit 36.3 % (37-47); Hemoglobin 12.1 g/dL (12.0-15.0); Lymphocyte # 1.16 X10^3/ul (0.83-4.51); Lymphocyte % 23.4 % (19-41); Mean Corp Hgb Conc 33.3 g/dL (32-36); Mean Corpuscular Hgb 33.6 pg (27.0-32.0); Mean Corpuscular Volume 100.8 fL (81-99); Mean Platelet Vol. 10.1 fl (6.2-12.0); Monocyte# 0.44 X10^3/uL; Monocyte% 8.9 % (0-10); NRBC Flagged by Analyzer 0 % (0-5); Neutrophil # 3.18 X10^3/uL (2.7-7.7); Neutrophil % 64.3 % (47-70); Platelet Count 288 K/mm3 (150-450); RBC Distribution Width CV 12.5 % (11.6-14.6); RBC Distribution Width SD 45.8 fl (35.1-43.9)
[2023-01-21 18:22] LABS: AST(SGOT) 26 U/L (15-37); Alanine Aminotransfer ALT/SGPT 29 U/L (13-56); Albumin, Serum 3.4 g/dL (3.2-5.0); Alkaline Phosphatase 54 U/L (45-117); Anion Gap 5 (5-15); BUN 15 mg/dL (7-18); BUN/Creat Ratio 15.6 RATIO (10-20); Chloride 103 mmol/L (98-107); Creatinine, Serum 0.96 mg/dL (0.55-1.02); EST Glomerular Filtration Rate 60 mL/min (>60); Est Glom Filt Rate - Afr Amer 73 mL/min (>60); Globulin 3.3 g/dL (2.2-4.2); Glucose 105 mg/dL (74-106); Potassium 3.4 mmol/L (3.5-5.1); Protein, Total 6.7 g/dL (6.4-8.2); Sodium Level 138 mmol/L (136-145)
== END | disposition home or self-care (01) ==
LOC: MTLAB 14:12
PROVIDERS: PCP Family Medicine; Referring Provider Internal Medicine Rheumatology; Visit Provider Internal Medicine Rheumatology
DX: M06.4 Inflammatory polyarthropathy (principal); Z79.899 Other long term (current) drug therapy; R76.8 Other specified abnormal immunological findings in serum; M79.7 Fibromyalgia
CPT/HCPCS: 36415; 80053; 85025

== ENCOUNTER 2023-02-21 22:57 | Emergency (ER) | payer MEDICARE, OTHER, SELFPAY ==
[2023-02-21 22:58] VITALS: BP 149/69; PULSE 65; RESP 18; TEMP 36.4; O2SAT 96; BMI 34.6
[2023-02-21 23:02] VITALS: BP 149/69; PULSE 63; RESP 18; O2SAT 98
--- NOTE | 2023-02-21 23:13 | EDS_ITS ---
HPI History of Present Illness Chief Complaint: Fatigue Informant: patient, spouse/S.O. and family Narrative Narrative: Patient presents with bilateral lower extremity weakness. Patient had lumbar surgery this past week at [facility] and was discharged on Wednesday. They think she had a fusion but are not sure of the details and I do not have access to the operative report. She went home and was using a walker but was able to walk. Starting this morning she started to feel overall weaker in both legs. 1 was not affected more than the other. This evening she just feels she cannot walk she does not have the strength. She denies any change in pain of her back. No headache. She denies nausea vomiting fevers or chills. She denies drainage from the wound. She contacted her surgeon who referred her in for further evaluation. Patient is also on new medicines of oxycodone and 2 other medicines for pain but nobody knows what these are. She took just took an oxycodone scheduled prior to arrival. [facility] Medical History Acute bronchitis, unspecified Acute maxillary sinusitis, unspecified Arthritis Carpal tunnel syndrome, right Depressive disorder Dyspnea on exertion Expressive aphasia Hot flashes Hypertension Lupus Migraine headache Osteoarthritis Osteoporosis SLE (systemic lupus erythematosus related syndrome) Stress incontinence in female Stroke/cerebrovascular accident Vaginal ulcer Home Medications hydrochlorothiazide 25 mg tablet 25 mg PO DAILY BLOOD PRESSURE 11/26/15 [History Last Taken 2 Days Ago ~10/06/22] ibandronate 150 mg tablet 150 mg PO Q30D BONE HEALTH 11/26/15 [History Last Taken 09/16/22] calcium carbonate 500 mg-vitamin D3 10 mcg (400 unit) tablet 1 tab PO TID SUPPLEMENT 04/07/22 [History Last Taken 2 Days Ago ~10/06/22] folic acid 1 mg tablet 1 mg PO BID SUPPLEMENT 04/07/22 [History Last Taken 2 Days Ago ~10/06/22] hydroxychloroquine 200 mg tablet (Plaquenil) 200 mg PO BID RHEUMATOID ARTHRITIS 04/07/22 [History Last Taken 2 Days Ago ~10/06/22] loratadine 10 mg tablet (Allergy Relief (loratadine)) 10 mg PO DAILY PRN all ergic symptoms 04/07/22 [History Last Taken Unknown] methotrexate sodium 2.5 mg tablet 15 mg PO ARIAS RHEUMATOID ARTHRITIS 04/07/22 [History Last Taken 10/04/22] potassium chloride 10 mEq tablet,extended release(part/cryst) 10 meq PO BID SUPPLEMENT 04/07/22 [History Last Taken 2 Days Ago ~10/06/22] aspirin 81 mg tablet,delayed release (Adult Low Dose Aspirin) 81 mg PO DAILY HEART HEALTH 10/08/22 [History Last Taken 2 Days Ago ~10/06/22] duloxetine 60 mg capsule,delayed release 60 mg PO BID DEPRESSION 10/08/22 [History Last Taken 2 Days Ago ~10/06/22] ferrous sulfate 325 mg (65 mg iron) tablet 325 mg PO DAILY SUPPLEMENT 10/08/22 [History Last Taken 2 Days Ago ~10/06/22] meclizine 12.5 mg tablet 12.5 mg PO DAILY PRN DIZZINESS 10/08/22 [History Last Taken Unknown] prednisone 10 mg tablet 10 mg PO DAILY PRN STEROID 10/08/22 [History Last Taken Unknown] albuterol sulfate 90 mcg/actuation aerosol inhaler 2 inh inhalation Q6H PRN shortness of breath or wheezing #8.5 grams 10/10/22 [Rx Last Taken Unknown] buspirone 10 mg tablet 10 mg PO BID #60 tabs 11/09/22 [Rx Last Taken Unknown] propranolol 10 mg tablet 10 mg PO BID #60 tabs 11/09/22 [Rx Last Taken Unknown] cyanocobalamin (vitamin B-12) 1,000 mcg/mL injection solution (Dodex) 1,000 mcg subcut QMONTH 02/22/23 [History Last Taken Unknown] Allergy/AdvReac Type Severity Reaction Status Date / Time codeine Allergy Rash Verified 02/21/23 23:01 Family History Sister Lupus Mother CVA (cerebral vascular accident) Heart disease Hypertension Father Heart disease Hypertension Brother Heart disease Sister Diabetes Surgical History H/O dilation and curettage H/O tubal ligation History of hernia surgery History of hip surgery History of tonsillectomy Social History adopted: No household members: spouse housing: house number of children: 1 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 status: retired current occupation: [employer] pets and animals: Yes Smoking Status: Never smoker second hand exposure: No alcohol intake: never substance use type: does not use seatbelt use: always do you feel safe at home: Yes additional social history: - Riki BROOKS ROS ED ROS Narrative A complete review of systems was performed and is negative except as documented in the history of present illness. Some specific details below. Constitutional: No recent fevers or chills. EYE: No visual complaints or pain. ENT: No difficulty swallowing. No swelling. No pain. No headaches. CV: No chest pain or palpitations. Not syncopal. She has had no falls. Respiratory: No dyspnea. No hemoptysis. No difficulty taking breaths. GI: No nausea vomiting or diarrhea. : No frequency dysuria or hematuria. She denies trouble starting urination. Musculoskeletal: No recent trauma. No pains. Skin: No rash. Nondiaphoretic. Neuro: See history of present illness. She denies numbness but states both of her legs feel too weak to walk. Endocrine: No polyuria or polydipsia. EXAM Physical Exam Narrative Exam Narrative: CONSTITUTIONAL: Patient is nontoxic in appearance. The patient looks comfortable. HEENT: No notable trauma. Mucous membranes moist. EYES: No conjunctival injection. No proptosis. CARDIOVASCULAR: Regular rate. Regular rhythm. No notable murmur. No JVD. RESPIRATORY: No respiratory distress. Breathing is unlabored. No wheezes. Saturations are normal at 98% on room air showing no hypoxia. GASTROINTESTINAL: Not distended. Bowel sounds are normal. No tenderness. No guarding. No rebound. No palpable mass. No bruit. GENITOURINARY: No tenderness over the bladder. No CVA tenderness. MUSCULOSKELETAL: Atraumatic. No peripheral edema. No cord. No tenderness along the deep venous system. No asymmetry. No pallor. She has dressings on the back. There is no drainage or erythema or notable tenderness of this wound. NEUROLOGICAL: Patient is alert and appropriate. No focal deficit noted. She does have slow speech but this sounds to be more consistent with oxycodone than any stroke. There is no dysarthria or aphasia. There are no lateralizing findings. She is actually able to plantar and dorsiflex her feet with good normal strength and equal bilaterally. She can lift either leg off the bed. She is slow to do it but she can lift it off the bed and get the thigh knee and lower leg off the bed for over 5 seconds each. She can tell exactly what toe and what area I am touching on which foot. There is no indication of gross motor deficit or sensory deficit. I did not walk the patient at this point though. SKIN: No noted rashes. No diaphoresis. PSYCHIATRIC: Patient is calm. Mood is appropriate. Const Vital Signs: 02/21/23 22:58 02/21/23 23:02 02/22/23 02:32 Temperature 97.6 F L Temperature Source Temporal Pulse Rate 65 63 Respiratory Rate 18 18 Respiratory Pattern Normal Blood Pressure 149/69 H 149/69 H Blood Pressure Mean 95 95 Pulse Ox 96 98 Oxygen Delivery Method Room Air Room Air 02/22/23 03:49 02/22/23 03:59 Temperature Temperature Source Pulse Rate 66 66 Respiratory Rate 16 16 Respiratory Pattern Blood Pressure 147/68 H 147/68 H Blood Pressure Mean 94 94 Pulse Ox 97 97 Oxygen Delivery Method Room Air MDM MDM MDM Narrative Medical decision making narrative: Patient CBC shows mild anemia at 10.9. But white count and platelets are normal. Patient's electrolytes show no marked abnormalities. Minimally low sodium that is not affecting her strength. Patient's ESR is high at 42 and CRP is high at 168. Although this can go along with infection, she is also postoperative and has a history of SLE. I do not think these elevated levels automatically define an infection. Patient's liver function test show no acute process. My independent interpretation the patient's CT scan of the head shows chronic but no acute changes. Is similar to final read. There is nothing on this that would explain her symptoms. CT scan of her back with contrast shows postsurgical changes but they cannot rule out an infection based on this. However, she has no fever, elevated white count, or sign of wound infection on exam. We attempted to get the patient up to walk. We were able to sit her on the edge of the bed. When sitting on the edge of the bed I was even had able to have her lift up her thighs and knees in the air. I am not getting any gross asymmetry or gross weakness on direct exam. But she has no strength or ability to stand or walk. Her legs start shaking. She is not safe to go home. I called [facility] to speak with her surgeon. I discussed case with Dr. Ankit Gaines we discussed the history, presentation, labs and radiologic studies. Plan will be to transfer to [facility]. She will likely need strengthening and may need rehab. She will also have the ability to be evaluated by her surgeon. We are making those arrangements at this time. Lab Data Attestation: I reviewed the patient's lab results. Labs: Laboratory Results - last 24 hr 02/21/23 02/21/23 01:25 23:15 WBC 9.4 RBC 3.30 L Hgb 10.9 L Hct 33.7 L MCV 102.1 H MCH 33.0 H MCHC 32.3 RDW Std Deviation 46.5 H RDW Coeff of Eduardo 12.6 Plt Count 291 MPV 10.4 Immature Gran % (Auto) 0.500 Neut % (Auto) 76.5 H Lymph % (Auto) 10.5 L Starke % (Auto) 9.9 Eos % (Auto) 2.2 Baso % (Auto) 0.4 Absolute Neuts (auto) 7.2 Absolute Lymphs (auto) 0.99 Nucleated RBC % 0 ESR 42 H Sodium 135 L Potassium 3.8 Chloride 99 Carbon Dioxide 32.0 Anion Gap 4 L BUN 11 Creatinine 0.75 Estim Creat Clear Calc 47.60 Est GFR (MDRD) Af Amer 98 Est GFR (MDRD) Non-Af 81 BUN/Creatinine Ratio 14.7 Glucose 111 H Calcium 9.3 Total Bilirubin 0.70 AST 31 ALT 19 Alkaline Phosphatase 33 L C-React Prot Ext Range 168.00 H Total Protein 6.5 Albumin 2.9 L Globulin 3.6 Albumin/Globulin Ratio 0.8 L Urine Color Yellow Urine Clarity Clear Urine pH 7.0 Ur Specific Berkley 1.010 Urine Protein Negative Urine Glucose (UA) Normal Urine Ketones Negative Urine Occult Blood 25 H Urine Nitrite Negative Urine Bilirubin Negative Urine Urobilinogen Normal Ur Leukocyte Esterase Negative Urine RBC 0-5 SEEN Urine WBC 0 SEEN Ur Squamous Epith Cells 0-5 SEEN Urine Bacteria 2+ Urine Mucus 0 SEEN Radiography Diagnostic Testing: Clinical Impression(s) from Imaging Studies Brain CT 02/22/23 00:00 IMPRESSION: 1. No acute intracranial abnormalities. 2. Age-related changes. Electronically Signed: Bc Flores MD at 0:28 EDT Reading Location ID and State: [facility] / [place] Tel , Service support , Lumbar Spine CT 02/22/23 00:00 IMPRESSION: 1. Recent surgical changes consistent with clinical history, with partial resection of the posterior elements from L3 through L5, with posterior pedicle screws and interbody rods at L4/5. 2. Postoperative fluid and air at the location of the posterior element resection measuring approximately 3 x 3 x 2.9 cm. Evaluation limited by extensive streak artifact from the surgical hardware. This could indicate expected postsurgical fluid collection, resolving hematoma, but infected fluid collection cannot be excluded. Electronically Signed: Bc Flores MD at 0:27 EDT , Discharge Plan Triage Chief Complaint: Fatigue ED Provider: Fili Faria Dx/Rx/DC Orders Clinical Impression: H/O lumbosacral spine surgery, Bilateral leg weakness, History of systemic lupus erythematosus (SLE), Inability to walk Prescriptions: No Action folic acid 1 mg tablet 1 mg PO BID methotrexate sodium 2.5 mg tablet 15 mg PO ARIAS hydroxychloroquine [Plaquenil] 200 mg tablet 200 mg PO BID calcium carbonate-vitamin D3 500 mg-10 mcg (400 unit) tablet 1 tab PO TID loratadine [Allergy Relief (loratadine)] 10 mg tablet 10 mg PO DAILY PRN (Reason: allergic symptoms) potassium chloride 10 mEq tablet,ER particles/crystals 10 meq PO BID buspirone 10 mg tablet 10 mg PO BID Qty: 60 5RF propranolol 10 mg tablet 10 mg PO BID Qty: 60 5RF hydrochlorothiazide 25 MG tablet 25 mg PO DAILY ibandronate 150 MG tablet 150 mg PO Q30D ferrous sulfate 325 mg (65 mg iron) Tablet 325 mg PO DAILY duloxetine 60 mg capsule,delayed release(DR/EC) 60 mg PO BID meclizine 12.5 mg tablet 12.5 mg PO DAILY PRN (Reason: DIZZINESS ) aspirin [Adult Low Dose Aspirin] 81 mg tablet,delayed release (DR/EC) 81 mg PO DAILY prednisone 10 mg tablet 10 mg PO DAILY PRN (Reason: STEROID) albuterol sulfate 90 mcg/actuation HFA aerosol inhaler 2 inh inhalation Q6H PRN (Reason: shortness of breath or wheezing) Qty: 8.5 0RF cyanocobalamin (vitamin B-12) [Dodex] 1,000 mcg/mL solution 1,000 mcg subcut QMONTH Primary Care Provider: Carl Bourgeois Referrals: Carl Bourgeois DO [Primary Care Provider] - Disposition Disposition: Acute Care Hospital Discharge Location: Other Acute Care Hospital Discharge Date/Time: 02/22/23 04:06
[2023-02-21 23:24] LABS: Absolute Lymphocyte Count 0.99 X10^3/uL (0.83-4.51); Absolute Neutrophil Count 7.2 X10^3/uL (2.0-7.7); Basophil# 0.04 X10^3/uL; Basophil% 0.4 % (0-1); Eosinophil# 0.21 X10^3/uL; Eosinophils% 2.2 % (0-5); Hematocrit 33.7 % (37-47); Hemoglobin 10.9 g/dL (12.0-15.0); Lymphocyte # 0.99 X10^3/ul (0.83-4.51); Lymphocyte % 10.5 % (19-41); Mean Corp Hgb Conc 32.3 g/dL (32-36); Mean Corpuscular Volume 102.1 fL (81-99); Mean Platelet Vol. 10.4 fl (6.2-12.0); Monocyte# 0.93 X10^3/uL; Monocyte% 9.9 % (0-10); NRBC Flagged by Analyzer 0 % (0-5); Neutrophil # 7.22 X10^3/uL (2.7-7.7); Neutrophil % 76.5 % (47-70); Platelet Count 291 K/mm3 (150-450); RBC Distribution Width CV 12.6 % (11.6-14.6); RBC Distribution Width SD 46.5 fl (35.1-43.9); White Blood Count 9.4 K/mm3 (4.4-11.0)
[2023-02-21 23:38] LABS: Erythrocyte Sedimentation Rate 42 mm/hr (0-30)
[2023-02-21 23:43] LABS: ALB/GLOB Ratio 0.8 RATIO (0.9-2.4); AST(SGOT) 31 U/L (15-37); Alanine Aminotransfer ALT/SGPT 19 U/L (13-56); Albumin, Serum 2.9 g/dL (3.2-5.0); Alkaline Phosphatase 33 U/L (45-117); Anion Gap 4 (5-15); BUN 11 mg/dL (7-18); BUN/Creat Ratio 14.7 RATIO (10-20); Calcium,Total 9.3 mg/dL (8.5-10.1); Chloride 99 mmol/L (98-107); Creatinine, Serum 0.75 mg/dL (0.55-1.02); EST Glomerular Filtration Rate 81 mL/min (>60); Est Glom Filt Rate - Afr Amer 98 mL/min (>60); Globulin 3.6 g/dL (2.2-4.2); Glucose 111 mg/dL (74-106); Potassium 3.8 mmol/L (3.5-5.1); Protein, Total 6.5 g/dL (6.4-8.2); Sodium Level 135 mmol/L (136-145)
--- NOTE | 2023-02-22 | CT_ITS ---
EXAM: CT HEAD WITHOUT INTRAVENOUS CONTRAST CLINICAL INDICATION: weakness TECHNIQUE: Multiple axial images were obtained of the head without intravenous contrast. This CT exam was performed using one or more of the following dose reduction techniques: automated exposure control, adjustment of the mA and/or kV according to patient size, and/or use of iterative reconstruction technique. RADIATION DOSE: CTDIvol = 44.99 mGy, DLP = 863.60 mGy-cm COMPARISON: MRI brain 10/08/2022 FINDINGS: BRAIN AND EXTRA-AXIAL SPACES: Diffuse cerebral volume loss. Periventricular small vessel ischemic changes. No intra- or extra-axial hemorrhage. No intracranial mass or mass effect. Posterior fossa structures are unremarkable. No hydrocephalus. Basal cisterns are patent. BONES/JOINTS: Unremarkable. No discrete lytic or blastic abnormalities. VASCULATURE: Vascular calcifications. SINUSES: Unremarkable as visualized. Clear. MASTOID AIR CELLS: Unremarkable. Clear. ORBITS: Visualized globes, extraocular muscles, optic nerves and retrobulbar fat appear unremarkable. CT/Brain/Head without Contrast IMPRESSION: 1. No acute intracranial abnormalities. 2. Age-related changes. Electronically Signed: Bc Flores MD at 0:28 EDT ,
--- NOTE | 2023-02-22 | CT_ITS ---
EXAM: CT LUMBAR SPINE WITH INTRAVENOUS CONTRAST CLINICAL INDICATION: Weakness postsurgery question abscess TECHNIQUE: Helically acquired images were obtained of the lumbar spine with intravenous contrast. 2D reformats were reviewed. This CT exam was performed using one or more of the following dose reduction techniques: automated exposure control, adjustment of the mA and/or kV according to patient size, and/or use of iterative reconstruction technique. CONTRAST: IV 100mL [id number] RADIATION DOSE: CTDIvol = 31.51 mGy, DLP = 939.43 mGy-cm COMPARISON: No relevant prior studies available. FINDINGS: VERTEBRAE: Recent surgical changes consistent with clinical history, with partial resection of the posterior elements from L3 through L5, with posterior pedicle screws and interbody rods at L4/5. No fracture. No traumatic subluxation. No discrete lytic or blastic abnormality. Normal alignment. DISCS/SPINAL CANAL/NEURAL FORAMINA: Unremarkable. Disc heights are preserved. No critical stenosis. VASCULATURE: Visualized abdominal aorta is not dilated. LYMPH NODES: Unremarkable. No retroperitoneal adenopathy. SOFT TISSUES: Postoperative fluid and air at the location of the posterior element resection measuring approximately 3 x 3 x 2.9 cm. Evaluation limited by extensive streak artifact from the surgical hardware. CT/Spine Lumbar WITH Contrast IMPRESSION: 1. Recent surgical changes consistent with clinical history, with partial resection of the posterior elements from L3 through L5, with posterior pedicle screws and interbody rods at L4/5. 2. Postoperative fluid and air at the location of the posterior element resection measuring approximately 3 x 3 x 2.9 cm. Evaluation limited by extensive streak artifact from the surgical hardware. This could indicate expected postsurgical fluid collection, resolving hematoma, but infected fluid collection cannot be excluded. Electronically Signed: Bc Flores MD at 0:27 EDT ,
--- NOTE | 2023-02-22 01:23 | ED.RN ---
Pt is accepted by Dr Mason Gaines, waiting for [facility] to call back with a bed assignment.
[2023-02-22 01:30] LABS: Mucous, Urine 0 SEEN /hpf (<or=2+); White Blood Cells 0 SEEN /hpf (0-5)
[2023-02-22 02:02] LABS: Color, Urine Yellow (Yellow); Glucose, Dipstick Normal (Normal); Ketone-Dipstick Negative (Negative); Leukocyte Esterase-Dipstick Negative /ul (Negative); Nitrite-Dipstick Negative (Negative); Occult Blood-Urine 25 /ul (Negative); Protein-Dipstick Negative (Negative); Urine Bilirubin Dipstick Negative (Negative); Urine Clarity Clear (Clear); Urine Urobilinogen Normal (Normal)
[2023-02-22 02:46] LABS: Squamous Epithelial Cells - UA 0-5 SEEN /hpf (5-10)
[2023-02-22 02:47] LABS: Bacteria 2+ /hpf (None Seen); Red Blood Cells-Urine 0-5 SEEN /hpf (0-5)
[2023-02-22 03:49] VITALS: BP 147/68; PULSE 66; RESP 16; O2SAT 97
[2023-02-22 03:59] VITALS: BP 147/68; PULSE 66; RESP 16; O2SAT 97
== END 2023-02-22 04:06 | disposition short-term general hospital (02) ==
PROVIDERS: Emergency Provider Emergency Medicine; PCP Family Medicine; Visit Provider Emergency Medicine
DX: R26.2 Difficulty in walking, not elsewhere classified (principal); M32.9 Systemic lupus erythematosus, unspecified; I10 Essential (primary) hypertension; Z98.890 Other specified postprocedural states; Z79.82 Long term (current) use of aspirin; Z79.899 Other long term (current) drug therapy; Z86.73 Personal history of transient ischemic attack (TIA), and cerebral infarction without residual deficits
CPT/HCPCS: 99285; 70450; 72132; 80053; 81001; 85025; 85652; 86140; Q9967; A4216

== ENCOUNTER 2023-02-24 12:26 | Inpatient (IN) | payer MEDICARE, OTHER, SELFPAY ==
[2023-02-24 12:58] VITALS: BP 131/63; PULSE 59; RESP 15; TEMP 37; O2SAT 97
[2023-02-24 13:10] VITALS: O2SAT 97
[2023-02-24 14:27] VITALS: BMI 34.2
[2023-02-24] MEDS: Gabapentin 300 MG Capsule PO (17:41)
[2023-02-24] MEDS: traMADol 50 MG Tablet PO (20:14)
[2023-02-24] MEDS: Ferrous Sulfate 325 MG Tablet PO (20:15)
[2023-02-24] MEDS: DULoxetine Hcl 60 MG Capsule PO (20:15)
[2023-02-24] MEDS: Propranolol 10 MG Tablet PO (20:16)
[2023-02-24] MEDS: Potassium Chloride Oral Tablet 10 MEQ PO (20:16)
[2023-02-24] MEDS: Calcium Carb/Vitamin D 1 TABLET Tablet PO (20:17)
[2023-02-24] MEDS: Senna/Docusate Sodium 1 Tablet 2 TABLET PO (20:17)
[2023-02-24] MEDS: Baclofen 10 MG Tablet 5 MG PO (20:18)
[2023-02-24] MEDS: busPIRone 15 MG TABLET PO (20:19)
[2023-02-24] MEDS: Hydroxychloroquine 200 MG Tablet PO (20:20)
[2023-02-24 20:35] VITALS: BP 133/62; PULSE 63; RESP 16; TEMP 35.8; O2SAT 97
[2023-02-24] MEDS: Acetaminophen 500 MG Tablet 1000 MG PO (21:36)
[2023-02-25] MEDS: traMADol 50 MG Tablet PO ×2 (03:11→21:37)
[2023-02-25] MEDS: Acetaminophen 500 MG Tablet 1000 MG PO ×3 (05:06→21:37)
[2023-02-25] MEDS: Baclofen 10 MG Tablet 5 MG PO ×2 (05:06→21:41)
[2023-02-25 05:41] LABS: Absolute Lymphocyte Count 1.17 X10^3/uL (0.83-4.51); Absolute Neutrophil Count 4.7 X10^3/uL (2.0-7.7); Basophil# 0.06 X10^3/uL; Basophil% 0.9 % (0-1); Eosinophil# 0.27 X10^3/uL; Eosinophils% 3.8 % (0-5); Hematocrit 30.1 % (37-47); Hemoglobin 9.6 g/dL (12.0-15.0); Lymphocyte # 1.17 X10^3/ul (0.83-4.51); Lymphocyte % 16.6 % (19-41); Mean Corp Hgb Conc 31.9 g/dL (32-36); Mean Corpuscular Hgb 33.2 pg (27.0-32.0); Mean Corpuscular Volume 104.2 fL (81-99); Mean Platelet Vol. 10.1 fl (6.2-12.0); Monocyte# 0.82 X10^3/uL; Monocyte% 11.6 % (0-10); NRBC Flagged by Analyzer 0 % (0-5); Neutrophil # 4.69 X10^3/uL (2.7-7.7); Neutrophil % 66.7 % (47-70); Platelet Count 277 K/mm3 (150-450); RBC Distribution Width CV 12.6 % (11.6-14.6); RBC Distribution Width SD 47.3 fl (35.1-43.9); Red Blood Count 2.89 M/mm3 (4.2-5.4)
[2023-02-25 06:00] VITALS: BP 125/60; BP 133/70; BP 140/73; PULSE 63; PULSE 67; PULSE 69
[2023-02-25 06:45] LABS: ALB/GLOB Ratio 0.7 RATIO (0.9-2.4); AST(SGOT) 27 U/L (15-37); Alanine Aminotransfer ALT/SGPT 23 U/L (13-56); Albumin, Serum 2.3 g/dL (3.2-5.0); Alkaline Phosphatase 52 U/L (45-117); Anion Gap 4 (5-15); BUN 14 mg/dL (7-18); BUN/Creat Ratio 19.1 RATIO (10-20); Chloride 106 mmol/L (98-107); Creatinine, Serum 0.73 mg/dL (0.55-1.02); EST Glomerular Filtration Rate 83 mL/min (>60); Est Glom Filt Rate - Afr Amer 100 mL/min (>60); Globulin 3.5 g/dL (2.2-4.2); Glucose 101 mg/dL (74-106); Magnesium 2.2 mg/dL (1.6-2.6); Phosphorus 4.4 mg/dL (2.5-4.9); Potassium 3.8 mmol/L (3.5-5.1); Protein, Total 5.8 g/dL (6.4-8.2); Sodium Level 140 mmol/L (136-145)
[2023-02-25 07:32] VITALS: O2SAT 98
[2023-02-25] MEDS: Potassium Chloride Oral Tablet 10 MEQ PO ×2 (08:39→21:41)
[2023-02-25] MEDS: Propranolol 10 MG Tablet PO ×2 (08:39→21:40)
[2023-02-25] MEDS: DULoxetine Hcl 60 MG Capsule PO ×2 (08:40→21:38)
[2023-02-25] MEDS: busPIRone 15 MG TABLET PO ×2 (08:40→21:39)
[2023-02-25] MEDS: Folic Acid 1 MG Tablet PO (08:40)
[2023-02-25] MEDS: Aspirin E.C. 81 MG Tablet PO (08:40)
[2023-02-25] MEDS: Calcium Carb/Vitamin D 1 TABLET Tablet PO ×2 (08:41→21:39)
[2023-02-25] MEDS: Hydroxychloroquine 200 MG Tablet PO ×2 (08:41→21:38)
[2023-02-25] MEDS: Senna/Docusate Sodium 1 Tablet 2 TABLET PO ×2 (08:42→21:37)
[2023-02-25 09:00] VITALS: BP 137/82; PULSE 69; RESP 16; TEMP 35.8; O2SAT 97
[2023-02-25 09:09] LABS: Vitamin D,25 Hydroxy 73.1 ng/mL
[2023-02-25] MEDS: Meclizine 12.5 MG Tablet PO (11:33)
--- NOTE | 2023-02-25 13:22 | PCM.HP.STD ---
[facility] - General General Date of Admission: 02/24/23 Date of Service: 02/25/23 Chief Complaint: Debility due to recent lumbar decompression and fusion. HPI Narrative YADIRA PEREZ, is a 72 F with a PMH of anxiety/depression, fibromyalgia, hypertension, peripheral neuropathy, osteoporosis and benign positional vertigo who recently had a bilateral posterior microdecompression of L3-L4, L4-L5 and local graft, allograft for L4-5 fusion on 02/17/[address] Frank Horan. She went home on 02/19/23 but on 02/21/23 she became extremely weak and started having muscle spasms and pain to the BL anterior thighs. She was seen at the [facility] ED. She tells me that she did not know she was supposed to get up and move every hour while awake and she thinks this may be what caused the decline. She had no difficulties with bowel or bladder. Labs showed a normal white blood cell count and she was afebrile. Hemoglobin was 10.9 with an MCV of 102.1. Platelets were normal. Differential was unremarkable. ESR and CRP were elevated however this is expected in the postoperative patient. A UA had [address] was unremarkable. CT scan of the lumbar spine showed recent surgical changes with partial resection of the posterior elements from L3-L5 with posterior pedicle screws and interbody rods at L4/5. There was postop fluid and air at the location of the posterior element resection but there was also a lot of streak artifact related to surgical hardware. She was admitted to the [facility] on 02/22/23. Additional W/U was unremarkable and acute rehab was recommended for strengthening. she was transferred to the acute inpt rehab unit at [facility] on 02/24/23 for 3 hours of therapy daily to restore function/independence at or near her level prior to the surgery. Leila tells me that since her surgery she now has increased feeling in the plantar surfaces of her feet. She denies any paresthesias at this time. The pain in the anterior thighs is getting somewhat better although she tells me she could not sleep last night because of back pain. She did not remember to ask for pain medication prior to bedtime. She denies hx of RA but, tells me that she is being treated with MTX and Plaquenil for SLE for which she sees Dr. Tejeda. She went to the [facility] in [place] for a second opinion and they told her that she did not have SLE but, she is still on Plaquenil and MTX. She does not think this medication has helped her. Prior to these medications she was on Lyrica and that did not help her pain and fatigue either. she has been seeing Dr. Moreland for fatigue and has been getting B12 injections but, she is still chronically fatigued. she takes naps during the day and falls asleep in front of the TV. She received a letter from [facility] following an admission in the past that told her she needed a sleep study however, she never followed up with this. She snores and has HTN. She was transitioned from Oxycodone at admission to Tramadol because of hallucinations and some cognitive dysfunction. She has taken 2 doses of Tramadol and currently her pain is adequately controlled. She had some vertigo when standing today and it resolved after Meclizine which she takes PRN for vertigo. She was also put on HCTZ for vertigo but, she denies tinnitus and hearing loss. She was able to do her therapy today and did well. She also felt her speech was a little slurred but, she is on several sedating medications and she really did not fall asleep until 5 AM......and her mouth is very dry. No focal neurologic deficits. All lab form this AM was personally reviewed. White blood cell count is normal with an unremarkable differential. Hemoglobin is 9.6 which is down from 10.9 on 02/21/2023 and 12.1 on 01/21/2023. MCV is elevated at 104.2. Platelets are normal. BMP is normal. LFTs are unremarkable. Calcium, magnesium and phosphorus are all normal. [facility] Medical History (Updated 02/25/23 @ 17:[address] Mariluz Cisneros, ) Acute bronchitis, unspecified Acute maxillary sinusitis, unspecified Anisocoria Anxiety Carpal tunnel syndrome, right Depression Depressive disorder Dysarthria Dyspnea on exertion Enlarged uterus Expressive aphasia Hot flashes Hypertension Hypoxia Lupus Migraine headache Orthostatic hypotension Osteoarthritis Osteoporosis Stress incontinence in female Stroke/cerebrovascular accident Thickened endometrium Uterine fibroid Vaginal ulcer Home Medications hydrochlorothiazide 25 mg tablet 25 mg PO DAILY BLOOD PRESSURE 11/26/15 [History Last Taken 2 Days Ago ~10/06/22] ibandronate 150 mg tablet 150 mg PO Q30D BONE HEALTH 11/26/15 [History Last Taken 09/16/22] calcium carbonate 500 mg-vitamin D3 10 mcg (400 unit) tablet 1 tab PO TID SUPPLEMENT 04/07/22 [History Last Taken 2 Days Ago ~10/06/22] folic acid 1 mg tablet 1 mg PO DAILY SUPPLEMENT 04/07/22 [History Last Taken 2 Days Ago ~10/06/22] hydroxychloroquine 200 mg tablet (Plaquenil) 200 mg PO BID RHEUMATOID ARTHRITIS 04/07/22 [History Last Taken 2 Days Ago ~10/06/22] methotrexate sodium 2.5 mg tablet 15 mg PO ARIAS RHEUMATOID ARTHRITIS 04/07/22 [History Last Taken 10/04/22] potassium chloride 10 mEq tablet,extended release(part/cryst) 10 meq PO BID SUPPLEMENT 04/07/22 [History Last Taken 2 Days Ago ~10/06/22] aspirin 81 mg tablet,delayed release (Adult Low Dose Aspirin) 81 mg PO DAILY HEART HEALTH 10/08/22 [History Last Taken 2 Days Ago ~10/06/22] duloxetine 60 mg capsule,delayed release 60 mg PO BID DEPRESSION 10/08/22 [History Last Taken 2 Days Ago ~10/06/22] ferrous sulfate 325 mg (65 mg iron) tablet 325 mg PO DAILY SUPPLEMENT 10/08/22 [History Last Taken 2 Days Ago ~10/06/22] meclizine 12.5 mg tablet 12.5 mg PO DAILY PRN DIZZINESS 10/08/22 [History Last Taken Unknown] albuterol sulfate 90 mcg/actuation aerosol inhaler 2 inh inhalation Q6H PRN shortness of breath or wheezing #8.5 grams 10/10/22 [Rx Last Taken Unknown] propranolol 10 mg tablet 10 mg PO BID HTN #60 tabs 11/09/22 [Rx Last Taken Unknown] cyanocobalamin (vitamin B-12) 1,000 mcg/mL injection solution (Dodex) 1,000 mcg subcut QMONTH supplement 02/22/23 [History Last Taken 02/13/23] buspirone 10 mg tablet 15 mg PO BID Anxity 02/24/23 [History Last Taken Unknown] Allergy/AdvReac Type Severity Reaction Status Date / Time codeine Allergy Rash Verified 02/21/23 23:01 Family History Sister Lupus Mother CVA (cerebral vascular accident) Heart disease Hypertension Father Heart disease Hypertension Brother Heart disease Sister Diabetes Surgical History (Updated 02/25/23 @ 17:[address] 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 pets and animals: Yes Smoking Status: Never smoker second hand exposure: No alcohol intake: never substance use type: does not use seatbelt use: always do you feel safe at home: Yes additional social history: - Riki ROS Review of Systems ROS Unobtainable: Denies due to encephalopathy, due to endotracheal tube, due to mental condition or due to mental status Constitutional Constitutional: Reports daytime sleepiness and weakness; Denies anorexia, change in weight, chills, fatigue, fever(s) or night sweats Eyes Eyes: Denies blurry vision, change in vision, eye pain or loss of vision ENT HEENT: Reports vertigo; Denies abnormal hearing, dysphagia, headache(s), hearing loss, nasal congestion or sore throat Cardiovascular Cardiovascular: Reports lightheadedness; Denies chest pain, dyspnea on exertion, edema, orthopnea, palpitations, paroxysmal nocturnal dyspnea or syncope Respiratory/Chest Respiratory/Chest: Denies cough, dyspnea, shortness of breath at rest, shortness of breath with exertion or wheezing Gastrointestinal Gastrointestinal: Denies abdominal pain, constipation, diarrhea, dyspepsia, hematemesis, hematochezia, nausea or vomiting Genitourinary Genitourinary: Reports urinary incontinence and other Details: Stress urinary incontinence ; Denies dysuria, hematuria, nocturia, urinary frequency, urinary hesitancy or urinary urgency Musculoskeletal Musculoskeletal: Reports back pain, myalgias and other Details: She tells me that the fibromyalgia pain is in her hands and the R elbow and forearm. She has a hx of carpal tunnel on the R and she has no joint deformities of the hands. ; Denies joint pain, joint swelling or neck pain Integumentary Integumentary: Denies hirsutism or jaundice Neurologic Neurologic: Reports dizziness and headache(s); Denies confusion, disequilibrium, focal weakness, paresthesias, seizures or tremor(s) Psychiatric Psychiatric: Reports anxiety and depression; Denies homicidal ideation or suicidal ideation Endocrine Endocrinology: Denies change in body appearance, polydipsia or polyuria Hematologic/Lymphatic Hematologic/Lymphatic: Denies easy bleeding, easy bruising or lymphadenopathy Allergic/Immunologic Allergic/Immunologic: Denies rhinitis, eczemia or asthma Vital Signs Vital Signs Vital Signs: 02/24/23 20:35 02/25/23 06:00 02/25/23 07:32 Temperature 96.4 F L Temperature Source Oral Pulse Rate 63 Pulse Rate [Lying] 63 Pulse Rate [Sitting (for 1 minute prior to obtaining)] 67 Pulse Rate [Standing (for 1 minute prior to obtaining)] 69 Pulse Strength Respiratory Rate 16 Respiratory Effort Respiratory Depth Respiratory Pattern Blood Pressure 133/62 H Blood Pressure [Lying] 133/70 H Blood Pressure [Sitting (for 1 minute prior to obtaining)] 125/60 H Blood Pressure [Standing (for 1 minute prior to obtaining)] 140/73 H Blood Pressure Mean 85 Blood Pressure Mean [Lying] 91 Blood Pressure Mean [Sitting (for 1 minute prior to obtaining)] 81 Blood Pressure Mean [Standing (for 1 minute prior to obtaining)] 95 Blood Pressure Source Monitor Blood Pressure Position Semi-Fowlers Blood Pressure Location Left Arm Pulse Ox 97 98 Oxygen Delivery Method Room Air Room Air 02/25/23 09:00 02/25/23 10:00 02/25/23 11:46 Temperature 96.5 F L Temperature Source Oral Pulse Rate 69 Pulse Rate [Lying] Pulse Rate [Sitting (for 1 minute prior to obtaining)] Pulse Rate [Standing (for 1 minute prior to obtaining)] Pulse Strength Normal (2+) Respiratory Rate 16 Respiratory Effort Normal Non-Labored Respiratory Depth Normal Respiratory Pattern Normal Blood Pressure 137/82 H Blood Pressure [Lying] Blood Pressure [Sitting (for 1 minute prior to obtaining)] Blood Pressure [Standing (for 1 minute prior to obtaining)] Blood Pressure Mean 100 Blood Pressure Mean [Lying] Blood Pressure Mean [Sitting (for 1 minute prior to obtaining)] Blood Pressure Mean [Standing (for 1 minute prior to obtaining)] Blood Pressure Source Monitor Blood Pressure Position Semi-Fowlers Blood Pressure Location Right Arm Pulse Ox 97 Oxygen Delivery Method Room Air Room Air Weight Weight: 211 lb 13.828 oz Body Mass Index (BMI) 34.2 Physical Exam Const alert, oriented x3 and no apparent distress General Appearance: cooperative and comfortable HEENT normocephalic and head/scalp atraumatic HEENT Narrative: Dry mucous membranes Eyes Eyes Narrative: The R pupil is larger than the left and this is chronic. Neck supple, thyroid normal, No nodes and no carotid bruits Chest Chest: symmetrical chest wall rise Resp normal respiratory effort, no use of accessory muscles and clear to auscultation bilaterally Effort and Inspection: able to speak in complete sentences; Negative for tachypneic Cardio regular rate, regular rhythm, S1 normal heart sound, S2 normal heart sound, no rub and no gallops Cardio Narrative: Soft 1-2/6 systolic EF at the 2nd RICS......possibly due to flow MM from anemia. No ectopy GI normal to inspection, nondistended, normoactive bowel sounds, non-tender and non-distended GI Narrative: No guarding with palpation Back/Spine Back/Spine Narrative: The incision in the low back is covered by a bandage.....will examine in the AM when the bandage is changed. General Back: Negative for CVA tenderness Extremity no clubbing, cyanosis or edema Extremity Narrative: No calf tenderness. Pedal pulses are normal. She has intact sensation in both feet. Skin no rashes or lesions noted and no jaundice General Skin Exam: no breakdown Neuro oriented x3, CN's II-XII intact bilaterally, no focal motor deficits and no sensory deficits noted Sensorium / Orientation: alert Psych affect normal, denies hallucinations, denies homicidal ideation and denies suicidal ideation Psych Narrative: appropriate, makes good eye contact Appearance: well kempt Attitude: calm Results Lab / Micro Data 02/25/23 05:08 02/25/23 05:08 Labs: Laboratory Results - last 24 hr 02/25/23 05:08: WBC 7.0, RBC 2.89 L, Hgb 9.6 L, Hct 30.1 L, MCV 104.2 H, MCH 33.2 H, MCHC 31.9 L, RDW Std Deviation 47.3 H, RDW Coeff of Eduardo 12.6, Plt Count 277, MPV 10.1, Immature Gran % (Auto) 0.400, Neut % (Auto) 66.7, Lymph % (Auto) 16.6 L, Weston % (Auto) 11.6 H, Eos % (Auto) 3.8, Baso % (Auto) 0.9, Absolute Neuts (auto) 4.7, Absolute Lymphs (auto) 1.17, Nucleated RBC % 0, Sodium 140, Potassium 3.8, Chloride 106, Carbon Dioxide 30.0, Anion Gap 4 L, BUN 14, Creatinine 0.73, Estim Creat Clear Calc 47.60, Est GFR (MDRD) Af Amer 100, Est GFR (MDRD) Non-Af 83, BUN/Creatinine Ratio 19.1, Glucose 101, Calcium 9.0, Phosphorus 4.4, Magnesium 2.2, Total Bilirubin 0.30, AST 27, ALT 23, Alkaline Phosphatase 52, Total Protein 5.8 L, Albumin 2.3 L, Globulin 3.5, Albumin/Globulin Ratio 0.7 L, Vitamin D 25-Hydroxy 73.1 Assessment & Plan Assessment/Plan (1) Anisocoria: (2) Bilateral leg weakness: (3) Status post lumbar spine surgery for decompression of spinal cord: (4) Macrocytic anemia: (5) Fatigue: QUALIFIERS: Fatigue type: chronic, unspecified Qualified Code(s): R53.82 - Chronic fatigue, unspecified (6) Vertigo: (7) Dysarthria: PLAN: Plan 1. PLAN PT for gait stability OT for ADL's ST for evaluation Analgesics as needed Bowel protocol Fall precautions Assess for Anxiety/Depression GI prophylaxis not necessary, asymptomatic and has no hx of PUD DVT prophylaxis with SCDs and NADEEM hose until okay with surgery for pharmacologic DVT prophylaxis Follow up with Dr. Carl Bourgeois, Dr. Frank Horan following DC from Rehab AM lab including CMP, CBC, Mag and Phos all personally reviewed. Schedule pain medication at bedtime and change the Baclofen to 5 mg daily at HS. Change the Gabapentin to 100 mg BID and 200 mg at 2100 Continue with PRN Tramadol. Place a straight back chair in her room for comfort. I am doubtful that she has SLE and ? why she is on Plaquenil and MTX? She is not on a NSAID. Will request records from Dr. Tejeda and [facility]. The chronic fatigue could be due to polypharmacy or she may have sleep apnea. Stop BANG score now is 4......will check the neck circumference. Overnight trending pulse ox tonight. HCTZ discontinued.......she has periodic vertigo but, no hearing loss and no tinnitus........and she does not drink enough fluids on a regular basis because she has stress urinary incontinence. Check a hemoccult stool Charges/Coding Visit Charges Inpatient E&M: 41207 Init Hosp L3
--- NOTE | 2023-02-25 15:24 | CHAPLAIN ---
Type of Pastoral Visit _x__ Initial Visit ___ Follow-up Visit ___ On-call Visit ___ General Patient Visit ___ Spiritual Assessment ___ Family Conference ___ Bereavement ___ Rapid Response ___ Code Blue ___ Other (describe below) Pastoral Care Referral From _x__ Patient ___ Family ___ Nurse ___ Physician ___ Solder Technician ___ Stencil Printer ___ Other (describe below) Sacrament/Intervention _x__ Active listening ___ Anointing ___ Jain ___ Bereavement ___ Communion _x__ Kayla exploration ___ ___ Life review _x__ Prayer ___ Reconciliation ___ Sacrament of Sick ___ Supportive presence ___ Wedding ___ Other (describe below) Pastoral Comments made 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
--- NOTE | 2023-02-25 17:13 | REHABEVAL_ITS ---
Admission Information Primary Diagnosis:: Debility secondary to bilateral leg weakness related to recent lumbar decompression and fusion. Status Changes from Prescreening?: No changes Identified Actual Problem List:: Skin Intergrity, Pain, ALteration in Cmfrt, Cognitve Impr/Memory Loss, Depression, Bowel, Constipation, Alteration in Sleep, Mobility Impaired, Self Care Deficit, Know.Dfct of Medicaitons and Alteration-Leisure Activ. Potential Problem List:: DVT, Bleeding, Infection, UTI, Aspiration, Falls, Skin Integrity and Depression Risk of Complications DVT: NADEEM Hose and Sequential Compression Device Bleeding: Monitor Lab Values, Nursing to Teach Precautions for anti-coagulation therapy., Wound, if applicable, to be assessed every shift. and Stroke patients assessed for lethargy or change in status. Infection: Clinical Staff to Monitor for S/S of infection: and S/S of infection include fever, redness, warmth, etc. Urinary Tract Infection: Monitor for frequency, burning, discomfort, or incontinence. and Nursing will obtain urine sample for urinalysis and C&S when ordered. Aspiration: Clinical staff will monitor for coughing, drooling, congestion., Speech will evaluate swallowing and dsyphasia. and Nursing will monitor patient swallowing during meals. Falls: Patient will be evaluated for Fall Precautions and Patient will be placed on Fall Precautions as indicated per protocol. Skin Breakdown: Nursing will assess skin daily using assessment tool. and Nursing will place on Skin Breakdown Precautions as indicated. Pain: Clinical staff will assess patient's pain level per protocol., Medications will be given, if needed, and the pain level reassessed. and Other methods: Massage, distraction, decrease stimulus, etc. used PRN. Plan of Care Patient requires physician specializing in physical medicine and rehab oversight to provide close medical supervision of rehab issues including: Pain Management, Sleep Problems, Bowel and Bladder, Medical and co-morbidity Management, DVT prophylaxis, Rehabilitation Leadership and Coordination of treatment team Patient needs Physical Therapy: For a minimum of 1 hour and At least 5 out of 7 days Patient needs Physical Therapy to improve:: Mobility, Strengthening, Transfers, Stretching, ROM, Endurance, Stairs, Gait and Balance Patient needs Occupational Therapy: For a minimum of 1 hour and At least 5 out of 7 days Patient needs Occupational Therapy to improve ADL's incl.: Eating, Grooming, Bathing, Dressing, Toileting, Toilet transfers, Community Reintegration, Higher functioning activities, Household tasks, Adaptive Equipment, Splinting and Other activities as determined Patient requires 24/7 Rehabilitation Nursing for: Pain Issues, Identifying and preventing risk factors, Monitoring and reporting current medical conditions, Assisting with ambulation, transfer, and all ADL's, Teaching patients about disease process and medications, Family teaching, Providing safe environment, Bowel and Bladder Issues, Skin integrity and Medication Management Patient needs Occupational Health Physiotherapist/ Case Management for: Discharge Planning, Arranging Home Equipment or Services and Family Interventions Patient needs Dietary and Nutrition Services for: Adequate Nutrition, Nutritional Supplements and Nutritional Education Goals Patient will remain: free from falls and or injury at time of discharge. Patient will perform bed mobility at: MOD I level of assist. Patient will complete transfers from bed to chair at: MOD I level of assist. Patient will ambulate: - (500 feet with least restrictive device on various surfaces at mod I) Patient will complete upper body dressing at: MOD I level of assist. Patient will complete lower body dressing at: MOD I level of assist. (With adaptive equipment as needed.) Patient will complete toileting at: MOD I level of assist. Patient will perform bathing at: MOD I level of assist. Patient will complete grooming at: MOD I level of assist. Patient will complete home management skills at: MOD I level of assist. Patient will achieve: - (She will complete 2 steps with the least restrictive device at contact-guard assist to allow access to her home.) Patient will have pain level of: of 3 or less Patient's skin will: remain intact Patient will receive: adequate nutrition. Discharge Planning Pt Prognosis for Sig. Practical Improv. w/in Reasonable Time: Good Estimated Length of stay (days): 21 Anticipated D/C Destination: Home with Outpt Therapy Was Preadmission Assessment Accurate?: Yes
[2023-02-25] MEDS: Gabapentin 100 MG Capsule PO (17:23)
[2023-02-25 20:00] VITALS: BP 173/70; PULSE 79; RESP 17; TEMP 36.5; O2SAT 95
[2023-02-25] MEDS: Gabapentin 100 MG Capsule 200 MG PO (21:37)
[2023-02-25] MEDS: Ferrous Sulfate 325 MG Tablet PO (21:40)
[2023-02-25 21:46] VITALS: PULSE 65; O2SAT 98
--- NOTE | 2023-02-25 21:50 | NURSING ---
Neck circumference is 16 inches.
[2023-02-26] MEDS: traMADol 50 MG Tablet PO ×2 (02:03→22:05)
[2023-02-26 06:00] VITALS: BP 119/68; BP 131/66; BP 137/64; PULSE 60; PULSE 66; PULSE 69; BMI 33.6
[2023-02-26] MEDS: Acetaminophen 500 MG Tablet 1000 MG PO ×3 (06:31→22:05)
[2023-02-26] MEDS: Meclizine 12.5 MG Tablet PO (07:09)
[2023-02-26 08:18] VITALS: BP 136/71; PULSE 77; RESP 17; TEMP 36.2; O2SAT 97
[2023-02-26] MEDS: Hydroxychloroquine 200 MG Tablet PO ×2 (09:12→22:09)
[2023-02-26] MEDS: Senna/Docusate Sodium 1 Tablet 2 TABLET PO ×2 (09:12→22:09)
[2023-02-26] MEDS: Calcium Carb/Vitamin D 1 TABLET Tablet PO ×2 (09:12→22:09)
[2023-02-26] MEDS: Folic Acid 1 MG Tablet PO (09:13)
[2023-02-26] MEDS: DULoxetine Hcl 60 MG Capsule PO (09:13)
[2023-02-26] MEDS: Propranolol 10 MG Tablet PO ×2 (09:13→22:08)
[2023-02-26] MEDS: Aspirin E.C. 81 MG Tablet PO (09:13)
[2023-02-26] MEDS: Potassium Chloride Oral Tablet 10 MEQ PO ×2 (09:13→22:10)
[2023-02-26] MEDS: Gabapentin 100 MG Capsule PO ×2 (09:22→17:53)
[2023-02-26] MEDS: busPIRone 15 MG TABLET PO (09:39)
--- NOTE | 2023-02-26 14:48 | PN_ITS ---
Subjective Subjective Afebrile VSS Maintaining appropriate oxygen saturation on RA Oral intake is good Discussed with nursing - no problems that need addressed Reviewed the PT/OT/ST notes Medication list reviewed. the overnight trending pulse ox showed the pulse ox to ranged from 90 to 100% for 99.24% of the monitoring.. More 0.77% of the time the pulse ox ranged from 82-89.The pulse ox was lower than 90% 4% of the period of time she was monitored. Leila tells me that she is having a much better day today. She slept well l ast night. Pain is well controlled with the current pain regimen. She denies cephalgia, lightheadedness, chest pain, shortness of breath, nausea/vomiting/abdominal pain, dysuria, calf tenderness, night sweats and chills. Objective Data Objective Data Vital Signs: Vital Signs Temp Pulse Resp BP Pulse Ox O2 Del Method O2 Flow Rate 97.2 F L 77 17 136/71 H 97 Room Air 0 02/26/23 08:18 02/26/23 08:18 02/26/23 08:18 02/26/23 08:18 02/26/23 08:18 02/26/23 10:00 02/25/23 21:46 FiO2 21 02/25/23 21:46 Oxygen Flow Rate (L/min) 0 Oxygen Delivery Method Room Air Weight: 208 lb 5.389 oz Body Mass Index (BMI) 33.6 Intake & Output: Intake and Output for Last 24 Hours 02/24/23 02/25/23 02/26/23 23:59 23:59 23:59 Output Total 300 / 300 350 / 350 1000 / 1000 Balance -300 / -300 -350 / -350 -1000 / -1000 Lab / Micro Data 02/25/23 05:08 02/25/23 05:08 Physical Exam Const alert, oriented x3 and no apparent distress General Appearance: cooperative HEENT Mouth: dry mucous membranes Resp normal respiratory effort and clear to auscultation bilaterally Effort and Inspection: Negative for tachypneic or labored Cardio regular rate and regular rhythm Cardio Narrative: No change in the murmur at the second right intercostal space. GI normal to inspection, nondistended, normoactive bowel sounds, soft to palpation and non-tender GI Narrative: No guarding with palpation Extremity no calf tenderness General Extremity: Negative for edema Skin General Skin Exam: no breakdown Rashes: no rashes Assessment & Plan Assessment/Plan (1) Anisocoria: (2) Bilateral leg weakness: (3) Status post lumbar spine surgery for decompression of spinal cord: (4) Macrocytic anemia: (5) Fatigue: QUALIFIERS: Fatigue type: chronic, unspecified Qualified Code(s): R53.82 - Chronic fatigue, unspecified (6) Vertigo: (7) Dysarthria: PLAN: Plan 1. Continue therapy 2. We discussed tapering some of her medications down to see if the fatigue improves and she is on board with this. 3. I reviewed Dr. 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 She does not have lupus or rheumatoid arthritis. 4. Decrease BuSpar to 10 mg p.o. twice daily and decrease Cymbalta to 60 mg once daily. She denies feeling anxious or depressed at the present time. 5. Continue methotrexate and Plaquenil. 6. Continue gabapentin. Charges/Coding Visit Charges Inpatient E&M: 16429 Subs Hosp L2
[2023-02-26 19:51] VITALS: BP 128/54; PULSE 64; RESP 16; TEMP 36.6; O2SAT 98
[2023-02-26 22:00] VITALS: PULSE 70; RESP 16; O2SAT 93
[2023-02-26] MEDS: Gabapentin 100 MG Capsule 200 MG PO (22:05)
[2023-02-26] MEDS: busPIRone 5 MG Tablet 10 MG PO (22:08)
[2023-02-26] MEDS: Baclofen 10 MG Tablet 5 MG PO (22:08)
[2023-02-26] MEDS: Ferrous Sulfate 325 MG Tablet PO (22:09)
--- NOTE | 2023-02-27 00:56 | NURSING ---
Pt requesting all 4 bed rails to be up while asleep.
[2023-02-27 06:00] VITALS: BP 116/63; BP 118/45; BP 121/54; PULSE 62; PULSE 64
[2023-02-27] MEDS: Acetaminophen 500 MG Tablet 1000 MG PO ×3 (06:29→21:44)
[2023-02-27 07:10] VITALS: O2SAT 95
[2023-02-27] MEDS: busPIRone 5 MG Tablet 10 MG PO ×2 (08:20→21:45)
[2023-02-27] MEDS: Gabapentin 100 MG Capsule PO ×2 (08:20→17:19)
[2023-02-27 08:21] VITALS: BP 130/58; PULSE 61; RESP 16; TEMP 36.6; O2SAT 98
[2023-02-27] MEDS: DULoxetine Hcl 60 MG Capsule PO (08:21)
[2023-02-27] MEDS: Folic Acid 1 MG Tablet PO (08:21)
[2023-02-27] MEDS: Aspirin E.C. 81 MG Tablet PO (08:21)
[2023-02-27] MEDS: Hydroxychloroquine 200 MG Tablet PO ×2 (08:22→21:48)
[2023-02-27] MEDS: Propranolol 10 MG Tablet PO ×2 (08:22→21:46)
[2023-02-27] MEDS: Calcium Carb/Vitamin D 1 TABLET Tablet PO ×2 (08:22→21:48)
[2023-02-27] MEDS: Senna/Docusate Sodium 1 Tablet 2 TABLET PO ×2 (08:22→21:48)
[2023-02-27] MEDS: Potassium Chloride Oral Tablet 10 MEQ PO ×2 (08:22→21:47)
[2023-02-27] MEDS: traMADol 50 MG Tablet PO ×2 (18:14→21:44)
[2023-02-27 19:46] VITALS: BP 111/49; PULSE 64; RESP 14; TEMP 36.4; O2SAT 99
[2023-02-27] MEDS: Gabapentin 100 MG Capsule 200 MG PO (21:44)
[2023-02-27] MEDS: Ferrous Sulfate 325 MG Tablet PO (21:46)
[2023-02-27] MEDS: Baclofen 10 MG Tablet 5 MG PO (21:47)
[2023-02-27 22:00] VITALS: PULSE 64; RESP 16; O2SAT 99
[2023-02-28] MEDS: Acetaminophen 500 MG Tablet 1000 MG PO ×3 (06:10→19:56)
[2023-02-28] MEDS: Methotrexate 2.5 MG Tablet 15 MG PO (06:10)
[2023-02-28] MEDS: Folic Acid 1 MG Tablet PO (07:53)
[2023-02-28] MEDS: Gabapentin 100 MG Capsule PO ×2 (07:53→16:32)
[2023-02-28] MEDS: busPIRone 5 MG Tablet 10 MG PO ×2 (07:53→19:53)
[2023-02-28] MEDS: Propranolol 10 MG Tablet PO ×2 (07:54→19:54)
[2023-02-28] MEDS: Potassium Chloride Oral Tablet 10 MEQ PO ×2 (07:54→19:54)
[2023-02-28] MEDS: Senna/Docusate Sodium 1 Tablet 2 TABLET PO ×2 (07:54→19:55)
[2023-02-28] MEDS: Calcium Carb/Vitamin D 1 TABLET Tablet PO ×2 (07:55→19:55)
[2023-02-28] MEDS: DULoxetine Hcl 60 MG Capsule PO (07:55)
[2023-02-28] MEDS: Aspirin E.C. 81 MG Tablet PO (07:55)
[2023-02-28] MEDS: Hydroxychloroquine 200 MG Tablet PO ×2 (07:55→19:55)
[2023-02-28 08:05] VITALS: BP 123/51; PULSE 93; RESP 16; TEMP 36.6; O2SAT 94
[2023-02-28 10:00] VITALS: BP 104/44; BP 119/55; BP 122/60; PULSE 59; PULSE 63
[2023-02-28 19:33] VITALS: BP 135/60; PULSE 61; RESP 14; TEMP 36.7; O2SAT 98
[2023-02-28] MEDS: Gabapentin 100 MG Capsule 200 MG PO (19:53)
[2023-02-28] MEDS: Baclofen 10 MG Tablet 5 MG PO (19:54)
[2023-02-28] MEDS: Ferrous Sulfate 325 MG Tablet PO (19:54)
[2023-02-28 20:06] VITALS: O2SAT 98
[2023-02-28] MEDS: traMADol 50 MG Tablet PO (21:50)
--- NOTE | 2023-03-01 02:16 | NURSING ---
Reviewed and agree with Genna GODINEZ, documentation and assessment charting.
[2023-03-01] MEDS: Acetaminophen 500 MG Tablet 1000 MG PO ×3 (05:29→21:00)
[2023-03-01 07:25] VITALS: BP 117/60; PULSE 58; RESP 16; TEMP 36; O2SAT 93
[2023-03-01] MEDS: Aspirin E.C. 81 MG Tablet PO (08:50)
[2023-03-01] MEDS: Calcium Carb/Vitamin D 1 TABLET Tablet PO ×2 (08:50→21:01)
[2023-03-01] MEDS: Hydroxychloroquine 200 MG Tablet PO ×2 (08:50→21:01)
[2023-03-01] MEDS: Folic Acid 1 MG Tablet PO (08:50)
[2023-03-01] MEDS: Gabapentin 100 MG Capsule PO ×2 (08:50→17:06)
[2023-03-01] MEDS: Propranolol 10 MG Tablet PO ×2 (08:51→20:59)
[2023-03-01] MEDS: Potassium Chloride Oral Tablet 10 MEQ PO ×2 (08:51→20:59)
[2023-03-01] MEDS: DULoxetine Hcl 60 MG Capsule PO (08:51)
[2023-03-01] MEDS: busPIRone 5 MG Tablet 10 MG PO ×2 (08:51→20:59)
[2023-03-01] MEDS: Senna/Docusate Sodium 1 Tablet 2 TABLET PO ×2 (08:51→21:00)
[2023-03-01 09:29] VITALS: O2SAT 95
[2023-03-01] MEDS: Meclizine 12.5 MG Tablet PO (10:20)
--- NOTE | 2023-03-01 11:43 | PCM.PROGNOTE ---
Subjective Subjective Leila was seen on team rounds today. Her Riki and her daughter were present in the room. Afebrile VSS Maintaining appropriate oxygen saturation on RA Oral intake is good Discussed with nursing - no problems that need addressed Reviewed the PT/OT notes Medication list reviewed. She is sleeping well. Pain is adequately controlled. She denies chest pain, palpitations, hemoptysis, cough, nausea/vomiting/abdominal pain, dysuria and calf pain. She occasionally has mild slurred speech and I feel this happens when she has a poor fluid intake with decreased cerebral blood flow. The BP does drop from 123/60 when lying down to 104/44 standing up. Heart rate does not change with changes in position and this is likely secondary to the Propanolol 10 mg twice daily that she takes, I suspect for migraines. MM are dry and she is being encouraged to increase her fluid intake. She has not noticed any difference in her mood with the decrease in the Buspar and the Cymbalta last week. She is not feeling anxious or depressed and she has less pain since the GABApentin was added to the drug regimen. Objective Data Objective Data Vital Signs: Vital Signs Temp Pulse Resp BP Pulse Ox O2 Del Method O2 Flow Rate 96.8 F L 58 L 16 117/60 95 Room Air 0 03/01/23 07:25 03/01/23 07:25 03/01/23 07:25 03/01/23 07:25 03/01/23 09:29 03/01/23 07:25 02/25/23 21:46 FiO2 21 02/25/23 21:46 Oxygen Flow Rate (L/min) 0 Oxygen Delivery Method Room Air Weight: 208 lb 5.389 oz Body Mass Index (BMI) 33.6 Intake & Output: Intake and Output for Last 24 Hours 02/27/23 02/28/23 03/01/23 23:59 23:59 23:59 Intake Total 350 / 350 60 / 60 Output Total 400 / 400 350 / 350 Balance -50 / -50 -290 / -290 Lab / Micro Data 02/25/23 05:08 02/25/23 05:08 Physical Exam Const alert and no apparent distress General Appearance: cooperative HEENT moist oral mucous membranes Resp normal respiratory effort, no use of accessory muscles and clear to auscultation bilaterally Effort and Inspection: Negative for tachypneic or labored Cardio regular rate, regular rhythm and no gallops GI normal to inspection, nondistended, normoactive bowel sounds, non-tender and non-distended GI Narrative: no guarding with palpation Extremity Negative for no calf tenderness Extremity Narrative: The incision is intact with no itesha-incisional erythema, no purulent discharge and no dehiscence. General Extremity: Negative for edema Skin General Skin Exam: no breakdown Rashes: no rashes Psych affect normal Assessment & Plan Assessment/Plan (1) Anisocoria: (2) Bilateral leg weakness: (3) Status post lumbar spine surgery for decompression of spinal cord: (4) Macrocytic anemia: (5) Fatigue: QUALIFIERS: Fatigue type: chronic, unspecified Qualified Code(s): R53.82 - Chronic fatigue, unspecified (6) Vertigo: (7) Dysarthria: PLAN: Plan 1. Continue therapy 2. Plan discharge home on 03/10 with home health care for home PT/OT. 3. She plans on driving to [place] in mid March and was advised to stop every hour while on the road to get out, stretch and ambulate a little. 4. She was reminded to increase her fluid intake to between 1502 L a day. 5. If no problems occur we will decrease the Cymbalta dosage to 60 mg once daily and the BuSpar to 5 mg twice daily toward the end of the week. Charges/Coding Visit Charges Inpatient E&M: 70925 Subs Hosp L2
[2023-03-01 13:39] VITALS: O2SAT 98
--- NOTE | 2023-03-01 14:49 | CASEMGMT ---
Social Work Rehab Unit Team Notes: IDT met w/pt, , and daughter for team meeting. Discussed patient's progress in PT/OT.. Educated pt and family anticipated discharge is 03/10/23. Pt and family''s goal is for pt to return home at discharge with home health care. SW will continue to follow and participate in weekly team meeting. MANUEAL Walker
[2023-03-01 19:29] VITALS: BP 132/62; PULSE 65; RESP 12; TEMP 37; O2SAT 100
[2023-03-01] MEDS: Gabapentin 100 MG Capsule 200 MG PO (20:58)
[2023-03-01] MEDS: Ferrous Sulfate 325 MG Tablet PO (21:00)
[2023-03-01] MEDS: Baclofen 10 MG Tablet 5 MG PO (21:02)
[2023-03-01] MEDS: traMADol 50 MG Tablet PO (21:04)
[2023-03-02] MEDS: Acetaminophen 500 MG Tablet 1000 MG PO ×3 (05:28→19:46)
[2023-03-02 07:51] VITALS: BP 123/64; PULSE 59; RESP 16; TEMP 36.8; O2SAT 97
[2023-03-02] MEDS: busPIRone 5 MG Tablet 10 MG PO ×2 (08:08→19:45)
[2023-03-02] MEDS: Folic Acid 1 MG Tablet PO (08:08)
[2023-03-02] MEDS: Calcium Carb/Vitamin D 1 TABLET Tablet PO ×2 (08:09→19:46)
[2023-03-02] MEDS: Potassium Chloride Oral Tablet 10 MEQ PO (08:09)
[2023-03-02] MEDS: Aspirin E.C. 81 MG Tablet PO (08:09)
[2023-03-02] MEDS: Gabapentin 100 MG Capsule PO ×2 (08:09→17:38)
[2023-03-02] MEDS: Propranolol 10 MG Tablet PO ×2 (08:09→19:45)
[2023-03-02] MEDS: DULoxetine Hcl 60 MG Capsule PO (08:09)
[2023-03-02] MEDS: Hydroxychloroquine 200 MG Tablet PO ×2 (08:09→19:46)
[2023-03-02] MEDS: Senna/Docusate Sodium 1 Tablet 2 TABLET PO ×2 (08:10→19:46)
--- NOTE | 2023-03-02 13:27 | PCM.PROGNOTE ---
Subjective Subjective Afebrile VSS-blood pressure and heart rate are within normal limits. Maintaining appropriate oxygen saturation on RA Oral intake is good. Discussed with nursing - no problems that need addressed Reviewed the PT/OT/ST notes Medication list reviewed. She feels as though she is getting stronger. She is sleeping well and her pain is adequately controlled. She has been intentionally increasing her water intake and she is on her second liter today. She has some vertigo when she first gets up in the morning but, it is not bad and she did no0t take Meclizine today. It generally resolves prior to the Meclizine having a chance to get into her system. She denies MONROY, CP, SOB, cough, dysuria and calf pain. She has not noticed her speech to be slurred. She denies feeling anxious or depressed. She is feeling good. Objective Data Objective Data Vital Signs: Vital Signs Temp Pulse Resp BP Pulse Ox O2 Del Method O2 Flow Rate 98.3 F 59 L 16 123/64 H 97 Room Air 0 03/02/23 07:51 03/02/23 07:51 03/02/23 07:51 03/02/23 07:51 03/02/23 07:51 03/02/23 07:51 02/25/23 21:46 FiO2 21 02/25/23 21:46 Oxygen Flow Rate (L/min) 0 Oxygen Delivery Method Room Air Weight: 208 lb 5.389 oz Body Mass Index (BMI) 33.6 Intake & Output: Intake and Output for Last 24 Hours 02/28/23 03/01/23 03/02/23 23:59 23:59 23:59 Intake Total 60 / 60 300 / 300 360 / 360 Output Total 350 / 350 Balance -290 / -290 300 / 300 360 / 360 Lab / Micro Data 02/25/23 05:08 02/25/23 05:08 Micro: Microbiology 03/01/23 20:04 Stool Stool Occult Blood (CESAR) - Final Physical Exam Const alert, oriented x3 and no apparent distress Constitutional Narrative: looks happy and relaxed sitting in bed. General Appearance: cooperative Orientation / Consciousness: Negative for confused Resp normal respiratory effort, normal air movement and clear to auscultation bilaterally Cardio regular rate, regular rhythm and no gallops GI normal to inspection, nondistended, normoactive bowel sounds, soft to palpation and non-tender Extremity no calf tenderness General Extremity: Negative for edema Skin General Skin Exam: no breakdown Rashes: no rashes Neuro CN's II-XII intact bilaterally Neuro Narrative: She has no slurred speech, no facial droop and no ataxia today. Coordination / Balance: [id number] test normal and [id number] test normal Speech: speech normal Psych cooperative and affect normal Assessment & Plan Assessment/Plan (1) Anisocoria: (2) Bilateral leg weakness: (3) Status post lumbar spine surgery for decompression of spinal cord: (4) Macrocytic anemia: (5) Fatigue: QUALIFIERS: Fatigue type: chronic, unspecified Qualified Code(s): R53.82 - Chronic fatigue, unspecified (6) Vertigo: (7) Dysarthria: PLAN: Plan 1. Continue therapy 2. continue to taper off as many medications as possible. 3. PT will teach her the head maneuvers to do for BPV. She does not have Meniere's so will DC the HCTZ.......it was making her more symptomatic because she was not drinking enough water and she was dry. 4. Discontinue the potassium supplement since she is no longer taking hydrochlorothiazide. 5. Recheck a BMP on Charges/Coding Visit Charges Inpatient E&M: 73001 Subs Hosp L2
[2023-03-02 19:10] VITALS: BP 155/69; PULSE 63; RESP 14; TEMP 36; O2SAT 100
[2023-03-02] MEDS: Gabapentin 100 MG Capsule 200 MG PO (19:44)
[2023-03-02] MEDS: Baclofen 10 MG Tablet 5 MG PO (19:45)
[2023-03-02] MEDS: Ferrous Sulfate 325 MG Tablet PO (19:45)
[2023-03-02] MEDS: traMADol 50 MG Tablet PO (21:16)
[2023-03-03] MEDS: Acetaminophen 500 MG Tablet 1000 MG PO ×3 (05:24→20:41)
[2023-03-03] MEDS: Meclizine 12.5 MG Tablet PO ×2 (06:45→13:04)
[2023-03-03 09:09] VITALS: BP 120/65; PULSE 65; RESP 16; TEMP 36.6; O2SAT 97
[2023-03-03] MEDS: busPIRone 5 MG Tablet 10 MG PO ×2 (09:10→20:43)
[2023-03-03] MEDS: Propranolol 10 MG Tablet PO ×2 (09:11→20:42)
[2023-03-03] MEDS: Aspirin E.C. 81 MG Tablet PO (09:11)
[2023-03-03] MEDS: Folic Acid 1 MG Tablet PO (09:11)
[2023-03-03] MEDS: DULoxetine Hcl 60 MG Capsule PO (09:11)
[2023-03-03] MEDS: Hydroxychloroquine 200 MG Tablet PO ×2 (09:11→20:41)
[2023-03-03] MEDS: Calcium Carb/Vitamin D 1 TABLET Tablet PO ×2 (09:11→20:42)
[2023-03-03] MEDS: Senna/Docusate Sodium 1 Tablet 2 TABLET PO ×2 (09:12→20:41)
[2023-03-03] MEDS: Gabapentin 100 MG Capsule PO ×2 (09:16→17:37)
--- NOTE | 2023-03-03 16:15 | NURSING ---
24 robyn removed from lumbar spine per Drs orders. pt tolerated well. Resting at this time.
[2023-03-03 18:58] VITALS: BP 130/69; PULSE 62; RESP 16; TEMP 36.4; O2SAT 98
[2023-03-03 20:20] VITALS: PULSE 62; RESP 15; O2SAT 98
[2023-03-03] MEDS: traMADol 50 MG Tablet PO (20:42)
[2023-03-03] MEDS: Ferrous Sulfate 325 MG Tablet PO (20:43)
[2023-03-03] MEDS: Baclofen 10 MG Tablet 5 MG PO (20:43)
[2023-03-03] MEDS: Gabapentin 100 MG Capsule 200 MG PO (20:49)
[2023-03-04 05:54] LABS: Hemoglobin 9.5 g/dL (12.0-15.0)
[2023-03-04 06:19] LABS: Anion Gap 4 (5-15); BUN 23 mg/dL (7-18); BUN/Creat Ratio 27.4 RATIO (10-20); Calcium,Total 8.9 mg/dL (8.5-10.1); Chloride 107 mmol/L (98-107); Creatinine, Serum 0.84 mg/dL (0.55-1.02); EST Glomerular Filtration Rate 71 mL/min (>60); Est Glom Filt Rate - Afr Amer 86 mL/min (>60); Estimated Creatinine Clearance 56.67 ml/min; Glucose 102 mg/dL (74-106); Potassium 4.1 mmol/L (3.5-5.1); Sodium Level 141 mmol/L (136-145)
[2023-03-04] MEDS: Acetaminophen 500 MG Tablet 1000 MG PO ×3 (06:40→21:29)
[2023-03-04 08:52] VITALS: BP 133/58; PULSE 68; RESP 16; TEMP 36.9; O2SAT 94
[2023-03-04] MEDS: Propranolol 10 MG Tablet PO ×2 (09:11→21:31)
[2023-03-04] MEDS: Folic Acid 1 MG Tablet PO (09:11)
[2023-03-04] MEDS: Calcium Carb/Vitamin D 1 TABLET Tablet PO ×2 (09:11→21:31)
[2023-03-04] MEDS: DULoxetine Hcl 60 MG Capsule PO (09:11)
[2023-03-04] MEDS: busPIRone 5 MG Tablet 10 MG PO ×2 (09:11→21:29)
[2023-03-04] MEDS: Aspirin E.C. 81 MG Tablet PO (09:11)
[2023-03-04] MEDS: Gabapentin 100 MG Capsule PO ×2 (09:11→18:06)
[2023-03-04] MEDS: Hydroxychloroquine 200 MG Tablet PO ×2 (09:11→21:30)
[2023-03-04] MEDS: Senna/Docusate Sodium 1 Tablet 2 TABLET PO (09:11)
--- NOTE | 2023-03-04 10:13 | PCM.PROGNOTE ---
Subjective Subjective Afebrile VSS Maintaining appropriate oxygen saturation on RA Oral intake is good Discussed with nursing - no problems that need addressed Reviewed the PT/OT/ST notes Medication list reviewed. All lab from this morning was personally reviewed. Hemoglobin is stable at 9.5. Sodium is 141 and the potassium is 4.1 today. The BUN is 23 (up from 11 on 02/21/2023. With a stable creatinine of 0.84. She was seen at the [facility] on September 16, 2021. She only visited 1 time. They repeated an JEN and a double-stranded DNA but the results did not come in the paperwork they faxed. Patient stated she never got the results. We will resend a request for the results of those tests. JEN has been negative consistently. Titer using Crithidia assay was negative. RA negative and CCP negative. She may not need MTX. If she has a inflammatory polyarthropathy then Plaquenil could be continued. She is sleeping well and has a good appetite. Pain is well controlled. She denies chest pain, shortness of breath, hemoptysis, cough, nausea/vomiting/abdominal pain, dysuria and calf pain. She feels as though she is getting stronger and is happy with her progress in therapy. Objective Data Objective Data Vital Signs: Vital Signs Temp Pulse Resp BP Pulse Ox O2 Del Method O2 Flow Rate 98.5 F 68 16 133/58 H 94 Room Air 0 03/04/23 08:52 03/04/23 08:52 03/04/23 08:52 03/04/23 08:52 03/04/23 08:52 03/04/23 08:52 02/25/23 21:46 FiO2 21 02/25/23 21:46 Oxygen Flow Rate (L/min) 0 Oxygen Delivery Method Room Air Weight: 208 lb 5.389 oz Body Mass Index (BMI) 33.6 Intake & Output: Intake and Output for Last 24 Hours 03/02/23 03/03/23 03/04/23 23:59 23:59 23:59 Intake Total 1440 / 1440 1220 / 1220 Balance 1440 / 1440 1220 / 1220 Lab / Micro Data 03/04/23 05:46 03/04/23 05:46 Labs: Laboratory Results - last 24 hr 03/04/23 05:46: Hgb 9.5 L, Hct 30.0 L, Sodium 141, Potassium 4.1, Chloride 107, Carbon Dioxide 30.0, Anion Gap 4 L, BUN 23 H, Creatinine 0.84, Estim Creat Clear Calc 56.67, Est GFR (MDRD) Af Amer 86, Est GFR (MDRD) Non-Af 71, BUN/Creatinine Ratio 27.4 H, Glucose 102, Calcium 8.9 Micro: Microbiology 03/01/23 20:04 Stool Stool Occult Blood (CESAR) - Final Physical Exam Const alert, oriented x3 and no apparent distress General Appearance: cooperative HEENT Mouth: dry mucous membranes Resp clear to auscultation bilaterally Cardio regular rate, regular rhythm and no gallops GI normal to inspection, nondistended, normoactive bowel sounds, soft to palpation and non-tender Extremity no calf tenderness Skin General Skin Exam: no breakdown Rashes: no rashes Wound Narrative: The incision is intact with no dehiscence. There is no significant tiesha-incisional erythema, no odor and no purulent discharge. Assessment & Plan Assessment/Plan (1) Anisocoria: (2) Bilateral leg weakness: (3) Status post lumbar spine surgery for decompression of spinal cord: (4) Macrocytic anemia: (5) Fatigue: QUALIFIERS: Fatigue type: chronic, unspecified Qualified Code(s): R53.82 - Chronic fatigue, unspecified (6) Vertigo: (7) Dysarthria: PLAN: Plan 1. Continue therapy 2. she had vertigo again this AM and I suspect this is due to the fact that she is once again not drinking enough non-caffeinated fluid. She was once again encouraged to increase her water intake. 3. Discharge is planned to home next Wednesday. Charges/Coding Visit Charges Inpatient E&M: 34574 Subs Hosp L2
[2023-03-04] MEDS: Gabapentin 100 MG Capsule 200 MG PO (21:30)
[2023-03-04] MEDS: Ferrous Sulfate 325 MG Tablet PO (21:31)
[2023-03-04] MEDS: Baclofen 10 MG Tablet 5 MG PO (21:31)
[2023-03-04] MEDS: traMADol 50 MG Tablet PO (21:34)
[2023-03-04 21:35] VITALS: BP 166/66; PULSE 70; RESP 14; TEMP 36.6; O2SAT 98
[2023-03-05] MEDS: traMADol 50 MG Tablet PO ×2 (04:46→20:24)
[2023-03-05 05:57] VITALS: BMI 33.4
[2023-03-05] MEDS: Acetaminophen 500 MG Tablet 1000 MG PO ×3 (06:04→20:26)
[2023-03-05 07:38] VITALS: BP 132/56; PULSE 67; RESP 16; TEMP 36.2; O2SAT 97
[2023-03-05] MEDS: Gabapentin 100 MG Capsule PO ×2 (08:34→17:41)
[2023-03-05] MEDS: Hydroxychloroquine 200 MG Tablet PO ×2 (08:34→20:27)
[2023-03-05] MEDS: DULoxetine Hcl 60 MG Capsule PO (08:35)
[2023-03-05] MEDS: Folic Acid 1 MG Tablet PO (08:35)
[2023-03-05] MEDS: Propranolol 10 MG Tablet PO ×2 (08:35→20:27)
[2023-03-05] MEDS: Calcium Carb/Vitamin D 1 TABLET Tablet PO ×2 (08:35→20:26)
[2023-03-05] MEDS: Senna/Docusate Sodium 1 Tablet 2 TABLET PO ×2 (08:35→20:28)
[2023-03-05] MEDS: Aspirin E.C. 81 MG Tablet PO (08:35)
[2023-03-05] MEDS: busPIRone 5 MG Tablet 10 MG PO ×2 (08:35→20:27)
[2023-03-05 20:15] VITALS: BP 139/69; PULSE 62; RESP 16; TEMP 36.6; O2SAT 99
[2023-03-05] MEDS: Gabapentin 100 MG Capsule 200 MG PO (20:24)
[2023-03-05] MEDS: Baclofen 10 MG Tablet 5 MG PO (20:25)
[2023-03-05] MEDS: Ferrous Sulfate 325 MG Tablet PO (20:28)
[2023-03-06] MEDS: traMADol 50 MG Tablet PO ×2 (00:07→19:51)
[2023-03-06] MEDS: Acetaminophen 500 MG Tablet 1000 MG PO ×3 (05:08→19:51)
[2023-03-06 07:40] VITALS: BP 123/68; PULSE 67; RESP 15; TEMP 35.9; O2SAT 94
[2023-03-06] MEDS: busPIRone 5 MG Tablet 10 MG PO ×2 (08:53→19:54)
[2023-03-06] MEDS: Aspirin E.C. 81 MG Tablet PO (08:53)
[2023-03-06] MEDS: Folic Acid 1 MG Tablet PO (08:53)
[2023-03-06] MEDS: Hydroxychloroquine 200 MG Tablet PO ×2 (08:54→19:56)
[2023-03-06] MEDS: DULoxetine Hcl 60 MG Capsule PO (08:54)
[2023-03-06] MEDS: Calcium Carb/Vitamin D 1 TABLET Tablet PO ×2 (08:54→19:56)
[2023-03-06] MEDS: Propranolol 10 MG Tablet PO ×2 (08:54→19:54)
[2023-03-06] MEDS: Gabapentin 100 MG Capsule PO ×2 (08:57→17:53)
[2023-03-06] MEDS: Senna/Docusate Sodium 1 Tablet 2 TABLET PO ×2 (08:57→19:55)
[2023-03-06 19:32] VITALS: BP 135/77; PULSE 62; RESP 16; TEMP 36.2; O2SAT 97
[2023-03-06] MEDS: Gabapentin 100 MG Capsule 200 MG PO (19:50)
[2023-03-06] MEDS: Ferrous Sulfate 325 MG Tablet PO (19:53)
[2023-03-06] MEDS: Baclofen 10 MG Tablet 5 MG PO (19:53)
[2023-03-07] MEDS: Acetaminophen 500 MG Tablet 1000 MG PO ×3 (04:34→21:00)
[2023-03-07] MEDS: Methotrexate 2.5 MG Tablet 15 MG PO (04:34)
[2023-03-07 07:58] VITALS: BP 150/76; PULSE 68; RESP 16; TEMP 36.2; O2SAT 96
[2023-03-07] MEDS: Gabapentin 100 MG Capsule PO ×2 (09:24→17:09)
[2023-03-07] MEDS: busPIRone 5 MG Tablet 10 MG PO ×2 (09:24→20:58)
[2023-03-07] MEDS: Folic Acid 1 MG Tablet PO (09:24)
[2023-03-07] MEDS: DULoxetine Hcl 60 MG Capsule PO (09:24)
[2023-03-07] MEDS: Aspirin E.C. 81 MG Tablet PO (09:24)
[2023-03-07] MEDS: Hydroxychloroquine 200 MG Tablet PO ×2 (09:25→21:01)
[2023-03-07] MEDS: Propranolol 10 MG Tablet PO ×2 (09:25→20:58)
[2023-03-07] MEDS: Calcium Carb/Vitamin D 1 TABLET Tablet PO ×2 (09:25→20:59)
[2023-03-07 20:19] VITALS: BP 146/71; PULSE 62; RESP 18; TEMP 36.5; O2SAT 99
[2023-03-07] MEDS: Gabapentin 100 MG Capsule 200 MG PO (20:58)
[2023-03-07] MEDS: traMADol 50 MG Tablet PO (20:59)
[2023-03-07] MEDS: Senna/Docusate Sodium 1 Tablet 2 TABLET PO (20:59)
[2023-03-07] MEDS: Baclofen 10 MG Tablet 5 MG PO (21:01)
[2023-03-07] MEDS: Ferrous Sulfate 325 MG Tablet PO (21:02)
[2023-03-08] MEDS: Acetaminophen 500 MG Tablet 1000 MG PO ×3 (05:00→20:05)
[2023-03-08 07:45] VITALS: BP 141/64; PULSE 69; RESP 17; TEMP 36.1; O2SAT 100
[2023-03-08] MEDS: Gabapentin 100 MG Capsule PO ×2 (07:46→17:15)
[2023-03-08] MEDS: Folic Acid 1 MG Tablet PO (07:46)
[2023-03-08] MEDS: busPIRone 5 MG Tablet 10 MG PO ×2 (09:46→20:02)
[2023-03-08] MEDS: Calcium Carb/Vitamin D 1 TABLET Tablet PO ×2 (09:47→20:04)
[2023-03-08] MEDS: Propranolol 10 MG Tablet PO ×2 (09:47→20:03)
[2023-03-08] MEDS: DULoxetine Hcl 60 MG Capsule PO (09:47)
[2023-03-08] MEDS: Senna/Docusate Sodium 1 Tablet 2 TABLET PO ×2 (09:48→20:04)
[2023-03-08] MEDS: Hydroxychloroquine 200 MG Tablet PO ×2 (10:28→20:05)
[2023-03-08] MEDS: Aspirin E.C. 81 MG Tablet PO (10:28)
--- NOTE | 2023-03-08 11:34 | PN_ITS ---
Subjective Subjective Leila was seen on team rounds today. Her and daughter were present in the room for rounds. Afebrile VSS-systolics are always mildly elevated. Since she has had a stroke in the past the goal for her blood pressure is less than 130/80. Maintaining appropriate oxygen saturation on RA Oral intake is good Discussed with nursing - no problems that need addressed Reviewed the PT/OT notes - therapists are recommending close supervision at home for the first few weeks. She is doing better this week than last. She no longer has weakness on the R side and she has no slurred speech. Fluid intake is significantly increased. When she gets vertigo it is usually in the AM and it goes away within 10 minutes of taking a Meclizine? I suspect it is not the Meclizine that makes the vertigo go away if it is truly only 10 minutes. She cut her TUG time in half this week when compared to last. Medication list reviewed. Leila denies cephalgia, lightheadedness, cough, shortness of breath, chest roberto n, palpitations, nausea/vomiting/abdominal pain, calf tenderness and dysuria. Objective Data Objective Data Vital Signs: Vital Signs Temp Pulse Resp BP Pulse Ox O2 Del Method O2 Flow Rate 96.9 F L 69 17 141/64 H 100 Room Air 0 03/08/23 07:45 03/08/23 07:45 03/08/23 07:45 03/08/23 07:45 03/08/23 07:45 03/08/23 07:45 02/25/23 21:46 FiO2 21 02/25/23 21:46 Oxygen Flow Rate (L/min) 0 Oxygen Delivery Method Room Air Weight: 207 lb 14.334 oz Body Mass Index (BMI) 33.4 Intake & Output: Intake and Output for Last 24 Hours 03/06/23 03/07/23 03/08/23 23:59 23:59 23:59 Intake Total 250 / 250 200 / 200 Output Total 200 / 200 325 / 325 Balance 50 / 50 -125 / -125 Lab / Micro Data 03/04/23 05:46 03/04/23 05:46 Micro: Microbiology 03/01/23 20:04 Stool Stool Occult Blood (CESAR) - Final Physical Exam Const alert and no apparent distress General Appearance: cooperative HEENT moist oral mucous membranes Neck supple Resp normal respiratory effort, no use of accessory muscles and clear to auscultation bilaterally Effort and Inspection: Negative for tachypneic or labored Cardio regular rate, regular rhythm and no gallops GI normal to inspection, nondistended, normoactive bowel sounds, non-tender and non-distended GI Narrative: no guarding with palpation Extremity Negative for no calf tenderness General Extremity: Negative for edema Skin General Skin Exam: no breakdown Rashes: no rashes Wound Narrative: The lumbar incision is intact with no tiesha-incisional erythema, no significant swelling around the incision and no purulent discharge. Psych affect normal Assessment & Plan Assessment/Plan (1) Anisocoria: (2) Bilateral leg weakness: (3) Status post lumbar spine surgery for decompression of spinal cord: (4) Macrocytic anemia: (5) Fatigue: QUALIFIERS: Fatigue type: chronic, unspecified Qualified Code(s): R53.82 - Chronic fatigue, unspecified (6) Vertigo: (7) Dysarthria: PLAN: Plan 1. Continue therapy 2. Scheduled meclizine 12.5 mg every morning at 7:00. 3. Continue to encourage at least 1500 cc of fluid daily 4. Plan discharge on Wednesday with home health for PT/OT 5. Therapists recommending close supervision at home for at least the first 2 weeks Charges/Coding Visit Charges Inpatient E&M: 16353 Subs Hosp L2
--- NOTE | 2023-03-08 14:40 | CASEMGMT ---
Social Work Team meeting held today with pt, pts spouse and dgt present. Therapy and nursing discussed pt's progress with therapy. SW explained that last covered day by Medicare is 03/09 with discharge planned for 03/10. Pt and family are agreeable to this. Pt will require 24 hour supervision upon return home and spouse confirms he can provide this. Team is recommending home health PT and OT. A list of [facility] providers including quality and resource use data and consistent with pt's preferred geographic region, medical needs and insurance network provided from the [employer] guide. Pt will review list and notify SW of choice. Pt has needed DME. Pt, team and family agreeable with discharge plan. SW to follow to arrange dc. Discharge Date : 03/10/23 Discharge Plan: Home with 24 supervision of spouse and [facility] PT/OT MYRON May
[2023-03-08 19:37] VITALS: BP 136/63; PULSE 62; RESP 16; TEMP 36.5; O2SAT 98
[2023-03-08] MEDS: Gabapentin 100 MG Capsule 200 MG PO (20:02)
[2023-03-08] MEDS: Ferrous Sulfate 325 MG Tablet PO (20:03)
[2023-03-08] MEDS: Baclofen 10 MG Tablet 5 MG PO (20:03)
[2023-03-08] MEDS: traMADol 50 MG Tablet PO (21:08)
--- NOTE | 2023-03-09 03:38 | NURSING ---
Reviewed and agree with Genna GODINEZ documentation and assessment charting.
[2023-03-09] MEDS: Acetaminophen 500 MG Tablet 1000 MG PO ×3 (04:26→21:48)
[2023-03-09] MEDS: traMADol 50 MG Tablet PO ×2 (04:27→21:48)
[2023-03-09] MEDS: Meclizine 12.5 MG Tablet PO (06:23)
[2023-03-09 07:45] VITALS: BP 129/68; PULSE 69; RESP 15; TEMP 36.2; O2SAT 95
[2023-03-09] MEDS: Calcium Carb/Vitamin D 1 TABLET Tablet PO ×2 (08:25→20:14)
[2023-03-09] MEDS: Hydroxychloroquine 200 MG Tablet PO ×2 (08:25→20:14)
[2023-03-09] MEDS: busPIRone 5 MG Tablet 10 MG PO ×2 (08:26→20:13)
[2023-03-09] MEDS: DULoxetine Hcl 60 MG Capsule PO (08:26)
[2023-03-09] MEDS: Folic Acid 1 MG Tablet PO (08:26)
[2023-03-09] MEDS: Propranolol 10 MG Tablet PO ×2 (08:26→20:14)
[2023-03-09] MEDS: Aspirin E.C. 81 MG Tablet PO (08:26)
[2023-03-09] MEDS: Gabapentin 100 MG Capsule PO ×2 (08:26→17:13)
[2023-03-09] MEDS: Senna/Docusate Sodium 1 Tablet 2 TABLET PO ×2 (08:26→20:15)
--- NOTE | 2023-03-09 09:55 | CASEMGMT ---
Social Work Discharge is planned for Saturday 03/10. SW followed up with pt and preferred home health provider is [facility]. Referral made to Radha at [facility] for PT/OT and they are able to accept with a start of care on 03/11. Pt has needed DME. Pt spouse with provide transportation home. No additional dc needs at this time. Discharge Date: 03/10 Discharge Disposition: Home with spouse and [facility] PT/OT MY[facility] May
--- NOTE | 2023-03-09 10:39 | DCINST_ITS ---
Discharge Instructions Diet Discharge Diet: Low fat / Low cholesterol Activity Discharge Activity: May Not Drive, May Shower and Use Walker Weight Bearing Status: Full weight bearing Keep extremity elevated above heart level: Legs Additional Activity Instructions:: 1. No bending at the waist 2. No lifting more than 5 lbs 3. No twisting Dressing / Incision Call your doctor if your incision/area has: Continuous Slow Oozing, Increased Pain/ Swelling, Increased Redness, Foul Smelling Discharge and Swelling at the incision site Call your doctor if you observe: Fever of 101 or Higher, Inability to urinate, Inability to have a bowel movement, Shortness of breath, Fainting spells, Chest pain, Increased palpitations (irregular heartbeat), Calf discomfort, Uncontrolled pain and - (STROKE symptoms: facial droop, slurred speech, inability to get words out, weakness on 1 side of the body and not the other, numbness on 1 side of the body and not the other, inability to maintain your balance sitting or standing, vertigo. ) Suture Line Care: Avoid Pulling/Pushing and Avoid Pinching/Bending Change Dressing in: leave in place till F/U (no dressing necessary) Cleanse incision/area with: Soap & Water Follow Up Care Please Follow Up With: Carl Bourgeois, When: You will also need to follow up with Dr. Frank Horan. Test Results: Test results from this visit will be discussed in further detail at your follow- up appointment, if applicable. Pending Tests Upon Discharge: none Discharge Plan Admission Admit Date/Time: 02/24/23 12:26 Primary Reason for Your Visit: Debility due to lumbar laminectomy and fusion. Attending Provider: Mariluz Cisneros Primary Care Provider: Carl Bourgeois Instructions Patient Instructions: Caring for Your Incision, Orthostatic Hypotension Additional Instructions / Restrictions: 1. NO BENDING, NO TWISTING AND NO LIFTING MORE THAN 5 LBS. 2. At least for the first 2 weeks you are home you will need close supervision. This means you need help to walk to the bathroom and help with bathing and help remembering your spinal precautions. 3. Have Riki check the incision at least once a day and if there is any increasing redness around the incision, increased swelling or discharge from the incision call Dr. Horan or Dr. Bourgeois. 4. When you are on your trip to the [facility] make sure to stop at least once every hour and get out and walk for 5 minutes or so to prevent stiffness and increased pain. This will also help to prevent blood clots in your legs. 5. If you have calf pain, swelling of one leg and not the other, chest pain, shortness of breath while on your trip go to an ER and get evaluated for a blood clot. Pain in the calf, redness of the calf, swelling of the leg, chest pain and shortness of breath are all symptoms of blood clots. 6. You do NOT have lupus and your tests for rheumatoid arthritis are negative. Your diagnosis is inflammatory polyarthropathy. Plaquenil (hydroxychloroquine) is used to treat inflammatory polyarthritis. You may not need Methotrexate so please discuss this with Dr. Tejeda. 7. You are forgetful and have a hard time paying attention and following instructions. Some of your medications contribute to this and we are weaning the doses down. Duloxetine(also called Cymbalta) treats both anxiety and depression. We have the buspirone down to 5 mg twice a day from 15 mg twice a day. Buspirone only treats anxiety and only works if taken twice a day rather than just as needed. You may be able to discontinue this medication. 8. I discontinued hydrochlorothiazide, which is a diuretic, because you do not drink enough water a day and this leads to dehydration. When you get dehydrated you develop some stroke symptoms such as right-sided weakness, slurred speech and a facial droop. When you are well-hydrated you do not have the symptoms. Optimally you should be drinking 1-1/2 to 2 L of fluid a day. 9. I do not think the Meclizine is really helping with the vertigo. Vertigo is a spinning sensation not just lightheadedness. Meclizine would take at least 20-30 minutes to be absorbed from your stomach and your symptoms are gone in just 10 minutes. I think that the symptoms you have in the morning when first getting out of bed are due to orthostasis. I gave you some literature to ready about this. As we get older and devan if we are taking diuretics, antidepressants, antianxiety medications, antihypertensives, etc the blood pressure tends to drop temporarily with changes in position. When your first sit up in the morning sit at the edge of the bed for a few minutes before standing. When you stand do not start walking for a few minutes, just stand next to the bed. This allows the BP to equilibrate and prevents the dizziness. Also you have to drink enough fluid to keep well hydrated.......your urine should be a pale yellow if you are drinking enough water. 10. Meclizine, Duloxetine and buspirone can all make you feel fatigued and lightheaded. I think you would feel less fatigued and more alert if you were taking less medication. Your memory may improve also. Gabapentin can also make you fatigued and throw off your balance. You should only take this medication for another month.......by the the swelling from the surgery will have improved and you should not be having pain from nerve compression. 11. If you have any questions after you leave rehab please do not hesitate to call me. OFFICE: [phone] CELL: [phone] Have fun on your trip Discharge Orders/Prescriptions Prescriptions: New tramadol 50 mg Tablet 50 - 100 mg PO Q6H PRN PRN (Reason: Pain Score 3-10) Qty: 50 0RF buspirone 5 mg Tablet 5 mg PO BID Qty: 60 0RF acetaminophen 500 mg Tablet 1,000 mg PO Q6H PRN (Reason: pain, mild) Qty: 1 0RF baclofen 10 mg Tablet 5 mg PO QHS Qty: 30 0RF Rx Instructions: 1 and 1/2 tabs at bedtime for muscle relaxation gabapentin 100 mg Capsule See Rx Instructions .ROUTE .COMPLEX Qty: 120 0RF Rx Instructions: 1 capsule twice a day and 2 capsules 1 hr before bed. meclizine 12.5 mg Tablet 12.5 mg PO 4X/DAY PRN PRN (Reason: Vertigo) Qty: 30 0RF Rx Instructions: take only for vertigo (room spinning) Continued folic acid 1 mg tablet 1 mg PO DAILY methotrexate sodium 2.5 mg tablet 15 mg PO ARIAS hydroxychloroquine [Plaquenil] 200 mg tablet 200 mg PO BID calcium carbonate-vitamin D3 500 mg-10 mcg (400 unit) tablet 1 tab PO TID potassium chloride 10 mEq tablet,ER particles/crystals 10 meq PO BID propranolol 10 mg tablet 10 mg PO BID Qty: 60 5RF ibandronate 150 MG tablet 150 mg PO Q30D Hold Instructions: MD Ordered ferrous sulfate 325 mg (65 mg iron) Tablet 325 mg PO DAILY duloxetine 60 mg capsule,delayed release(DR/EC) 60 mg PO BID aspirin [Adult Low Dose Aspirin] 81 mg tablet,delayed release (DR/EC) 81 mg PO DAILY cyanocobalamin (vitamin B-12) [Dodex] 1,000 mcg/mL solution 1,000 mcg subcut QMONTH Discontinued hydrochlorothiazide 25 MG tablet 25 mg PO DAILY meclizine 12.5 mg tablet 12.5 mg PO DAILY PRN (Reason: DIZZINESS ) albuterol sulfate 90 mcg/actuation HFA aerosol inhaler 2 inh inhalation Q6H PRN (Reason: shortness of breath or wheezing) Qty: 8.5 0RF buspirone 10 mg tablet 15 mg PO BID Referrals / Follow Up: Carl Bourgeois DO [Primary Care Provider] - Disposition Disposition (needs filled in before D/C Order can be placed): Home Health Service
--- NOTE | 2023-03-09 13:30 | DS.PCM_ITS ---
Providers Date of Admission: 02/24/23 Date of Discharge: 03/10/23 Primary Care Physician: Dr. Carl Bourgeois DO Reason For Visit: DEBILITY Diagnosis Discharge Diagnosis (1) Lumbar canal stenosis: Status: Acute Code(s): M48.061 - Spinal stenosis, lumbar region without neurogenic claudication Qualifiers: Neurogenic claudication status: with neurogenic claudication Qualified Code(s): M48.062 - Spinal stenosis, lumbar region with neurogenic claudication (2) Facet arthritis of lumbosacral region: Status: Acute Code(s): M47.817 - Spondylosis without myelopathy or radiculopathy, lumbosacral region (3) Bilateral leg weakness: Status: Inactive Code(s): R29.898 - Other symptoms and signs involving the musculoskeletal system (4) Status post lumbar spine surgery for decompression of spinal cord: Status: Acute Code(s): Z98.890 - Other specified postprocedural states Plan: 02/17/[address] Neftaly Horan from the [facility]. (5) Inflammatory polyarthropathy: Status: Acute Code(s): M06.4 - Inflammatory polyarthropathy Plan: Follows up with Dr. Tejeda (6) Osteoarthritis: Status: Chronic Code(s): M19.90 - Unspecified osteoarthritis, unspecified site Qualifiers: Osteoarthritis location: multiple joints Osteoarthritis type: primary Qualified Code(s): M15.9 - Polyosteoarthritis, unspecified (7) Multifactorial gait disorder: Status: Chronic Code(s): R26.89 - Other abnormalities of gait and mobility (8) Anisocoria: Status: Acute Code(s): H57.02 - Anisocoria Plan: Long standing (9) Fatigue: Status: Chronic Code(s): R53.83 - Other fatigue Qualifiers: Fatigue type: chronic, unspecified Qualified Code(s): R53.82 - Chronic fatigue, unspecified Plan: Chronic. suspect related to polypharmacy. (10) Dysarthria: Status: Acute Code(s): R47.1 - Dysarthria and anarthria Plan: This is intermittent and sometimes is associated with R side weakness and facial droop. I suspect this is due to poor cerebral perfusion due to IV volume depletion/orthostasis. Has presented to the ED several times with slurred speech and W/U is always negative. Resolves with better hydration. HCTZ was discon tinued. (11) Peripheral vestibulopathy: Status: Chronic Code(s): H81.90 - Unspecified disorder of vestibular function, unspecified ear Qualifiers: Laterality: unspecified laterality Qualified Code(s): H81.90 - Unspecified disorder of vestibular function, unspecified ear (12) Mild cognitive impairment: Status: Chronic Code(s): G31.84 - Mild cognitive impairment of uncertain or unknown etiology Plan: Memory loss. Short attention span. Poor safety awareness at times. (13) Hypersomnolence: Status: Acute Code(s): G47.10 - Hypersomnia, unspecified Plan: Sleep study has been ordered and she will follow up with [place] [facility]. Plan 1. Discharge home on 03/10/2023 with [facility] home health services for continued PT/OT. 2. Follow-up with Dr. Carl Bourgeois and Dr. Frank Horan post discharge 3. Prescriptions were faxed to [facility] on [address] 4. DME at discharge includes a front wheeled walker 5. Sleep study the end of March, split study and then follow up with pulmonary. Medications at Discharge Home Medications ibandronate 150 mg tablet 150 mg PO Q30D [facility] 11/26/15 calcium carbonate 500 mg-vitamin D3 10 mcg (400 unit) tablet 1 tab PO TID SUPPLEMENT 04/07/22 folic acid 1 mg tablet 1 mg PO DAILY SUPPLEMENT 04/07/22 hydroxychloroquine 200 mg tablet (Plaquenil) 200 mg PO BID RHEUMATOID ARTHRITIS 04/07/22 methotrexate sodium 2.5 mg tablet 15 mg PO ARIAS RHEUMATOID ARTHRITIS 04/07/22 potassium chloride 10 mEq tablet,extended release(part/cryst) 10 meq PO BID SUPPLEMENT 04/07/22 aspirin 81 mg tablet,delayed release (Adult Low Dose Aspirin) 81 mg PO DAILY [facility] 10/08/22 duloxetine 60 mg capsule,delayed release 60 mg PO BID DEPRESSION 10/08/22 ferrous sulfate 325 mg (65 mg iron) tablet 325 mg PO DAILY SUPPLEMENT 10/08/22 propranolol 10 mg tablet 10 mg PO BID HTN #60 tabs 11/09/22 cyanocobalamin (vitamin B-12) 1,000 mcg/mL injection solution (Dodex) 1,000 mcg subcut QMONTH supplement 02/22/23 acetaminophen 500 mg tablet 1,000 mg (2 x 500 mg) PO Q6H PRN pain, mild #1 TAB 03/09/23 baclofen 10 mg tablet 5 mg (1/2 x 10 mg) PO QHS #30 tabs 03/09/23 buspirone 5 mg tablet 5 mg PO BID #60 tabs 03/09/23 gabapentin 100 mg capsule See Rx Instructions .Route .COMPLEX #120 caps 03/09/23 meclizine 12.5 mg tablet 12.5 mg PO 4X/DAY PRN PRN Vertigo #30 tabs 03/09/23 tramadol 50 mg tablet 50 - 100 mg (1 - 2 x 50 mg) PO Q6H PRN PRN Pain Score 3-10 #50 tabs 03/09/23 Hospital Course Operations - (Lumbar laminectomy and fusion by Dr. Frank Horan on 02/17/2023. ) Procedures None Summary of Care Provided Minutes Spent on Discharge: 40 Hospital Course: YADIRA PEREZ, is a 72 F with a PMH of anxiety/depression, fibromyalgia, hypertension, peripheral neuropathy, osteoporosis, prior stroke, mild cognitive impairment and benign positional vertigo who had a bilateral posterior microdecompression of L3-L4, L4-L5 and local graft, allograft for L4-5 fusion on 02/17/[address] Frank Horan. She went home on 02/19/23 but, on 02/21/23 she became extremely weak and started having muscle spasms and pain to the BL anterior thighs. She was seen at [facility] ED. She tells me that she did not know she was supposed to get up and move every hour while awake and she thinks this may be what caused the decline. She had no difficulties with bowel or bladder. Labs showed a normal white blood cell count and she was afebrile. Hemoglobin was 10.9 with an MCV of 102.1. Platelets were normal. Differential was unremarkable. ESR and CRP were elevated however this is expected in the postoperative patient. A UA had [address] was unremarkable. CT scan of the lumbar spine showed recent surgical changes with partial resection of the posterior elements from L3-L5 with posterior pedicle screws and interbody rods at L4/5. There was postop fluid and air at the location of the posterior element resection but there was also a lot of streak artifact related to surgical hardware. She was admitted to the [facility] on 02/22/23. Additional W/U was unremarkable and acute rehab was recommended for strengthening. She was transferred to the acute inpt rehab unit at [facility] on 02/24/23 for 3 hours of therapy daily to restore function/independence at or near her level prior to the surgery. Yadira c/o chronic fatigue and daytime drowsiness at admission. She also tells me that she has trouble with her memory. She received a letter from the hospital after an admission that said she had O2 desaturation at night and recommended she talk with her PCP about a sleep study. A overnight trending pulse ox was abnormal while she was in rehab. She snores and she has hypersomnolence during the day along with poor memory. A split sleep study was ordered and will be scheduled for the end of March. She will follow up with either Dr. Morgan or Dr. Shi to review the results. I also feel some of her medications were contributing to drowsiness/fatigue. We tapered the Buspar down to 5 mg BID and she is more alert during the day and not napping as much. I also discontinued HCTZ because she is chronically dehydrated and was not drinking enough water. She is less fatigued since she is better hydrated and in better physical shape. I do not think she has Meniere's disease. She denies tinnitus and hearing loss. She may not even have BPPV. She is generally dizzy/vertigo in the AM when first getting out of bed. The symptoms are short lived and generally last < 10 minutes. She takes Meclizine and thinks this helps but, the sx resolve in 10 minutes........before the Meclizine has a chance to be absorbed in the stomach. I instructed her to drink at least 1600 cc's of non-caffeinated fluids a day and to sit at the EOB for a few minutes before standing in the morning and then when she stands she will stand for a few minutes before ambulating. I suspect her sx are due to orthostasis. She is much better since she is hydrated. When she first arrived on rehab she was having short periods of slurred speech, facial droop and R side weakness. Since she has been hydrated she no longer has any of these symptoms. She has been seen in the ED in the past for slurred speech and R side weakness and W/U's have been negative. I suspect she has intermittent neurologic deficits due to dehydration with decreased cerebral blood flow to an area previously affected by and ischemic stroke. She has had no sx for several days prior to DC. HGB is stable at 9.5 at DC, sodium is normal and the creatinine is 0.84. Vitamin D level is normal at 73.1. Yadira did well in therapy. She has some difficulty remembering her back precautions. At the time of DC she is independent with eating. She is standby assist for grooming and toileting. She is contact-guard assist for toilet transfer and bathing. She is supervision/set up for upper body dressing and requires minimal assistance with lower body dressing and tub/shower transfer. Her and dtr are aware that at least for the first 2 weeks after DC she will need close supervision 08/02. She has ambulated up to 510 feet with a front wheeled walker at close standby assist/contact-guard assist. She can be easily distracted. She is able to do 8 sit to stands at standby assist/contact-guard assist in 30 seconds. She can ascend/descend two 6 inch steps with 1 handrail at contact-guard assist with voice cueing for sequencing. Yadira was discharged on 03/10/2023 with family for close supervision. She will have [facility] for PT/OT. She has follow up appts scheduled with Dr. Bourgeois and with Dr. Neftaly Horan. The sleep lab will call her to schedule a sleep study for the end of March and will also schedule an appt to follow up with pulmonary to discuss the results of the sleep study. Physical Exam Const alert and no apparent distress General Appearance: cooperative HEENT moist oral mucous membranes Resp normal respiratory effort, normal air movement and clear to auscultation bilaterally Resp Narrative: No conversational dyspnea, able to speak in complete sentences. Effort and Inspection: Negative for tachypneic or labored Cardio regular rate, regular rhythm, S1 normal heart sound and S2 normal heart sound Cardio Narrative: She has a soft 1-2/6 systolic murmur at the second right intercostal space which may be related to anemia. She has no ectopy. GI normal to inspection, nondistended, normoactive bowel sounds, soft to palpation and non-tender GI Narrative: No guarding with palpation. No masses and no HS. Extremity no calf tenderness General Extremity: Negative for edema Skin General Skin Exam: no breakdown Rashes: no rashes Wound Narrative: The lumbar incision looks beautiful with no dehiscence, erythema or discharge. It is healing well. Neuro CN's II-XII intact bilaterally and no focal motor deficits Speech: speech normal Psych affect normal Appearance: appropriate Activity / Motor Behavior: Negative for restless Mood & Affect: Negative for depressed or anxious Thought Content: No delusion(s) and No hallucination(s) Weight / BMI Weight Weight: 207 lb 14.334 oz Body Mass Index (BMI) 33.4 ABG / Lab / Microbiology Data 03/04/23 05:46 03/04/23 05:46 Microbiology: Microbiology 03/01/23 20:04 Stool Stool Occult Blood (CESAR) - Final D/C Instructions Discharge Diet: Low fat / Low cholesterol Weight Bearing Status: Full weight bearing Keep extremity elevated above heart level: Legs Additional Activity Instructions: 1. No bending at the waist 2. No lifting more than 5 lbs 3. No twisting Call your doctor if your incision/area has: Continuous Slow Oozing, Increased Pain/ Swelling, Increased Redness, Foul Smelling Discharge and Swelling at the incision site Call your doctor if you observe: Fever of 101 or Higher, Inability to urinate, Inability to have a bowel movement, Shortness of breath, Fainting spells, Chest pain, Increased palpitations (irregular heartbeat), Calf discomfort, Uncontrolled pain and - (STROKE symptoms: facial droop, slurred speech, inability to get words out, weakness on 1 side of the body and not the other, numbness on 1 side of the body and not the other, inability to maintain your balance sitting or standing, vertigo. ) Suture Line Care: Avoid Pulling/Pushing and Avoid Pinching/Bending Cleanse incision/area with: Soap & Water Pending Tests Upon Discharge: none Please Follow Up With: Carl Bourgeois, DO When: You will also need to follow up with Dr. Frank Horan. Meaningful Use Info Meaningful Use Diagnoses (Choose all that apply): None applicable Discharge Plan Admission Admit Date/Time: 02/24/23 12:26 Primary Reason for Your Visit: Debility due to lumbar laminectomy and fusion. Attending Provider: Mariluz Cisneros Primary Care Provider: Carl Bourgeois Instructions Patient Instructions: Caring for Your Incision, Orthostatic Hypotension Additional Instructions / Restrictions: 1. NO BENDING, NO TWISTING AND NO LIFTING MORE THAN 5 LBS. 2. At least for the first 2 weeks you are home you will need close supervision. This means you need help to walk to the bathroom and help with bathing and help remembering your spinal precautions. 3. Have Riki check the incision at least once a day and if there is any increasing redness around the incision, increased swelling or discharge from the incision call Dr. Horan or Dr. Bourgeois. 4. When you are on your trip to the [facility] make sure to stop at least once every hour and get out and walk for 5 minutes or so to prevent stiffness and increased pain. This will also help to prevent blood clots in your legs. 5. If you have calf pain, swelling of one leg and not the other, chest pain, shortness of breath while on your trip go to an ER and get evaluated for a blood clot. Pain in the calf, redness of the calf, swelling of the leg, chest pain and shortness of breath are all symptoms of blood clots. 6. You do NOT have lupus and your tests for rheumatoid arthritis are negative. Your diagnosis is inflammatory polyarthropathy. Plaquenil (hydroxychloroquine) is used to treat inflammatory polyarthritis. You may not need Methotrexate so please discuss this with Dr. Tejeda. 7. You are forgetful and have a hard time paying attention and following instructions. Some of your medications contribute to this and we are weaning the doses down. Duloxetine(also called Cymbalta) treats both anxiety and depression. We have the buspirone down to 5 mg twice a day from 15 mg twice a day. Buspirone only treats anxiety and only works if taken twice a day rather than just as needed. You may be able to discontinue this medication. 8. I discontinued hydrochlorothiazide, which is a diuretic, because you do not drink enough water a day and this leads to dehydration. When you get dehydrated you develop some stroke symptoms such as right-sided weakness, slurred speech and a facial droop. When you are well-hydrated you do not have the symptoms. Optimally you should be drinking 1-1/2 to 2 L of fluid a day. 9. I do not think the Meclizine is really helping with the vertigo. Vertigo is a spinning sensation not just lightheadedness. Meclizine would take at least 20-30 minutes to be absorbed from your stomach and your symptoms are gone in just 10 minutes. I think that the symptoms you have in the morning when first getting out of bed are due to orthostasis. I gave you some literature to ready about this. As we get older and devan if we are taking diuretics, antidepressants, antianxiety medications, antihypertensives, etc the blood pressure tends to drop temporarily with changes in position. When your first sit up in the morning sit at the edge of the bed for a few minutes before standing. When you stand do not start walking for a few minutes, just stand next to the bed. This allows the BP to equilibrate and prevents the dizziness. Also you have to drink enough fluid to keep well hydrated.......your urine should be a pale yellow if you are drinking enough water. 10. Meclizine, Duloxetine and buspirone can all make you feel fatigued and lightheaded. I think you would feel less fatigued and more alert if you were taking less medication. Your memory may improve also. Gabapentin can also make you fatigued and throw off your balance. You should only take this medication for another month.......by the the swelling from the surgery will have improved and you should not be having pain from nerve compression. 11. If you have any questions after you leave rehab please do not hesitate to call me. OFFICE: [phone] CELL: [phone] Have fun on your trip Discharge Orders/Prescriptions Prescriptions: New tramadol 50 mg Tablet 50 - 100 mg PO Q6H PRN PRN (Reason: Pain Score 3-10) Qty: 50 0RF buspirone 5 mg Tablet 5 mg PO BID Qty: 60 0RF acetaminophen 500 mg Tablet 1,000 mg PO Q6H PRN (Reason: pain, mild) Qty: 1 0RF baclofen 10 mg Tablet 5 mg PO QHS Qty: 30 0RF Rx Instructions: 1 and 1/2 tabs at bedtime for muscle relaxation gabapentin 100 mg Capsule See Rx Instructions .ROUTE .COMPLEX Qty: 120 0RF Rx Instructions: 1 capsule twice a day and 2 capsules 1 hr before bed. meclizine 12.5 mg Tablet 12.5 mg PO 4X/DAY PRN PRN (Reason: Vertigo) Qty: 30 0RF Rx Instructions: take only for vertigo (room spinning) Continued folic acid 1 mg tablet 1 mg PO DAILY methotrexate sodium 2.5 mg tablet 15 mg PO ARIAS hydroxychloroquine [Plaquenil] 200 mg tablet 200 mg PO BID calcium carbonate-vitamin D3 500 mg-10 mcg (400 unit) tablet 1 tab PO TID potassium chloride 10 mEq tablet,ER particles/crystals 10 meq PO BID propranolol 10 mg tablet 10 mg PO BID Qty: 60 5RF ibandronate 150 MG tablet 150 mg PO Q30D Hold Instructions: MD Ordered ferrous sulfate 325 mg (65 mg iron) Tablet 325 mg PO DAILY duloxetine 60 mg capsule,delayed release(DR/EC) 60 mg PO BID aspirin [Adult Low Dose Aspirin] 81 mg tablet,delayed release (DR/EC) 81 mg PO DAILY cyanocobalamin (vitamin B-12) [Dodex] 1,000 mcg/mL solution 1,000 mcg subcut QMONTH Discontinued hydrochlorothiazide 25 MG tablet 25 mg PO DAILY meclizine 12.5 mg tablet 12.5 mg PO DAILY PRN (Reason: DIZZINESS ) albuterol sulfate 90 mcg/actuation HFA aerosol inhaler 2 inh inhalation Q6H PRN (Reason: shortness of breath or wheezing) Qty: 8.5 0RF buspirone 10 mg tablet 15 mg PO BID Referrals / Follow Up: Frank Horan [Other] - 03/16/23 10:00 am Carl Bourgeois DO [Primary Care Provider] - 03/12/23 12:50 pm Disposition Disposition (needs filled in before D/C Order can be placed): Home Health Service Charges/Coding Visit Charges Inpatient E&M: 87800 Disch Hosp >30min
--- NOTE | 2023-03-09 14:22 | NURSING ---
message left with Dr Bourgeois and Dr Frank cheung for f/u appt
[2023-03-09 19:42] VITALS: BP 121/59; PULSE 62; RESP 15; TEMP 36.4; O2SAT 94
[2023-03-09] MEDS: Ferrous Sulfate 325 MG Tablet PO (20:13)
[2023-03-09] MEDS: Gabapentin 100 MG Capsule 200 MG PO (20:13)
[2023-03-09] MEDS: Baclofen 10 MG Tablet 5 MG PO (20:14)
[2023-03-09 22:00] VITALS: PULSE 62; RESP 16; O2SAT 94
[2023-03-10] MEDS: Acetaminophen 500 MG Tablet 1000 MG PO ×2 (05:00→12:57)
[2023-03-10] MEDS: Meclizine 12.5 MG Tablet PO (06:28)
[2023-03-10 07:24] VITALS: BP 135/65; PULSE 66; RESP 16; TEMP 36.3; O2SAT 94
[2023-03-10] MEDS: Hydroxychloroquine 200 MG Tablet PO (08:22)
[2023-03-10] MEDS: busPIRone 5 MG Tablet 10 MG PO (08:23)
[2023-03-10] MEDS: Folic Acid 1 MG Tablet PO (08:23)
[2023-03-10] MEDS: Gabapentin 100 MG Capsule PO (08:23)
[2023-03-10] MEDS: Calcium Carb/Vitamin D 1 TABLET Tablet PO (08:23)
[2023-03-10] MEDS: Propranolol 10 MG Tablet PO (08:23)
[2023-03-10] MEDS: Aspirin E.C. 81 MG Tablet PO (08:23)
[2023-03-10] MEDS: DULoxetine Hcl 60 MG Capsule PO (08:23)
[2023-03-10 14:19] VITALS: BP 135/65; PULSE 66; RESP 16; TEMP 36.3; O2SAT 94
--- NOTE | 2023-03-10 14:20 | NURSING ---
discahrged home iwht . discharge instruction, medications, and appointments reviewed with pt. denies questions or concerns
== END 2023-03-10 14:21 | disposition home health service (06) | DRG 561 ==
PROVIDERS: Admitting Provider Internal Medicine; PCP Family Medicine; Visit Provider Internal Medicine
DX: Z47.89 Encounter for other orthopedic aftercare (principal); D53.9 Nutritional anemia, unspecified; M32.9 Systemic lupus erythematosus, unspecified; M06.4 Inflammatory polyarthropathy; I10 Essential (primary) hypertension; F32.A Depression, unspecified; M48.062 Spinal stenosis, lumbar region with neurogenic claudication; R26.2 Difficulty in walking, not elsewhere classified; M79.7 Fibromyalgia; G31.84 Mild cognitive impairment of uncertain or unknown etiology; F41.9 Anxiety disorder, unspecified; M47.817 Spondylosis without myelopathy or radiculopathy, lumbosacral region; H57.02 Anisocoria; R47.1 Dysarthria and anarthria; Z79.82 Long term (current) use of aspirin; Z79.83 Long term (current) use of bisphosphonates; G47.10 Hypersomnia, unspecified; Z79.899 Other long term (current) drug therapy; Z86.73 Personal history of transient ischemic attack (TIA), and cerebral infarction without residual deficits; Z98.890 Other specified postprocedural states; Z98.1 Arthrodesis status
CPT/HCPCS: 36415; 70450; 72132; 80048; 80053; 81001; 82274; 82306; 83735; 84100; 85014; 85018; 85025; 85652; 86140; 94762; 97110; 97112; 97116; 97162; 97166; 97530; 97535; 97802; 97803; 99285; Q9967; A4216; J8610

== ENCOUNTER → 2023-04-12 | Outpatient (CLI) | payer MEDICARE, OTHER, SELFPAY | END | disposition home or self-care (01) | LOC: SL 20:03 | PROVIDERS: PCP Family Medicine; Referring Provider Internal Medicine; Visit Provider Internal Medicine | DX: G47.10 Hypersomnia, unspecified (principal) | CPT/HCPCS: 95810 ==

== ENCOUNTER → 2023-04-22 | Outpatient (CLI) | payer MEDICARE, OTHER, SELFPAY ==
[2023-04-22 15:02] LABS: Absolute Lymphocyte Count 1.38 X10^3/uL (0.83-4.51); Absolute Neutrophil Count 3.4 X10^3/uL (2.0-7.7); Basophil# 0.04 X10^3/uL; Basophil% 0.7 % (0-1); Eosinophil# 0.11 X10^3/uL; Hematocrit 37.1 % (37-47); Hemoglobin 11.5 g/dL (12.0-15.0); Lymphocyte # 1.38 X10^3/ul (0.83-4.51); Lymphocyte % 25.7 % (19-41); Mean Corpuscular Hgb 31.8 pg (27.0-32.0); Mean Corpuscular Volume 102.5 fL (81-99); Mean Platelet Vol. 10.5 fl (6.2-12.0); Monocyte# 0.48 X10^3/uL; Monocyte% 8.9 % (0-10); NRBC Flagged by Analyzer 0 % (0-5); Neutrophil # 3.36 X10^3/uL (2.7-7.7); Neutrophil % 62.5 % (47-70); Platelet Count 290 K/mm3 (150-450); RBC Distribution Width CV 13.1 % (11.6-14.6); RBC Distribution Width SD 48.8 fl (35.1-43.9); Red Blood Count 3.62 M/mm3 (4.2-5.4); White Blood Count 5.4 K/mm3 (4.4-11.0)
[2023-04-22 15:41] LABS: AST(SGOT) 18 U/L (15-37); Alanine Aminotransfer ALT/SGPT 21 U/L (13-56); Albumin, Serum 3.3 g/dL (3.2-5.0); Alkaline Phosphatase 57 U/L (45-117); Anion Gap 5 (5-15); BUN 13 mg/dL (7-18); BUN/Creat Ratio 12.3 RATIO (10-20); Calcium,Total 9.2 mg/dL (8.5-10.1); Chloride 104 mmol/L (98-107); Creatinine, Serum 1.06 mg/dL (0.55-1.02); EST Glomerular Filtration Rate 54 mL/min (>60); Est Glom Filt Rate - Afr Amer 65 mL/min (>60); Globulin 3.3 g/dL (2.2-4.2); Glucose 102 mg/dL (74-106); Potassium 3.6 mmol/L (3.5-5.1); Protein, Total 6.6 g/dL (6.4-8.2); Sodium Level 139 mmol/L (136-145)
== END | disposition home or self-care (01) ==
LOC: MTLAB 12:46
PROVIDERS: PCP Family Medicine; Referring Provider Internal Medicine Rheumatology; Visit Provider Internal Medicine Rheumatology
DX: M06.4 Inflammatory polyarthropathy (principal); Z79.899 Other long term (current) drug therapy; R76.8 Other specified abnormal immunological findings in serum; M79.7 Fibromyalgia
CPT/HCPCS: 36415; 80053; 85025

== ENCOUNTER → 2023-06-09 | Outpatient (CLI) | payer MEDICARE, OTHER, SELFPAY ==
--- NOTE | 2023-06-09 12:44 | BI_ITS ---
MAMMOGRAPHY - BILATERAL SCREENING REASON FOR EXAM: Female, 73 years old. Routine annual screening examination. PERTINENT HISTORY: Non-contributory. TECHNIQUE: Digital bilateral breast sarath (3D mammographic acquisition) in the CC and MLO projections. 2-D mediolateral oblique (MLO) and craniocaudad (CC) views of both breasts were obtained. CAD: Full Field Digital Mammography with Computer Added Detection was performed. COMPARISON: Comparison is made with prior study dated June 02, 2022 and April 17, 2021. FINDINGS: Breast Composition: There are scattered areas of fibroglandular density. There are no dominant masses or suspicious calcifications. Stable small benign-appearing bilateral axillary lymph nodes. No other significant abnormalities are identified. There has been no significant change since the prior study. BI/SCRN MAMM (CAD)W/SARATH BILAT IMPRESSION: Stable bilateral screening mammogram. Yearly follow-up mammogram recommended. (A) ASSESSMENT CATEGORY: BIRADS Category 2: Benign. A letter regarding these results will be sent to the patient by the facility within 30 days. Approximately 10% of breast cancers are not detected by mammography. A normal mammogram should not delay biopsy of a clinically suspicious abnormality. [id number] Electronically Signed: Manfred Aaron MD at 15:13 EST ,
== END | disposition home or self-care (01) ==
LOC: OPBI 12:42
PROVIDERS: PCP Family Medicine; Referring Provider Family Medicine; Visit Provider Family Medicine
DX: Z12.31 Encounter for screening mammogram for malignant neoplasm of breast (principal)
CPT/HCPCS: 77063; 77067

== ENCOUNTER → 2023-07-21 | Outpatient (CLI) | payer MEDICARE, OTHER, SELFPAY ==
[2023-07-21 12:24] LABS: Absolute Neutrophil Count 2.3 X10^3/uL (2.0-7.7); Basophil# 0.05 X10^3/uL; Basophil% 1.4 % (0-1); Eosinophil# 0.11 X10^3/uL; Hematocrit 35.9 % (37-47); Hemoglobin 11.5 g/dL (12.0-15.0); Lymphocyte % 24.8 % (19-41); Mean Corpuscular Hgb 32.5 pg (27.0-32.0); Mean Corpuscular Volume 101.4 fL (81-99); Mean Platelet Vol. 10.7 fl (6.2-12.0); Monocyte# 0.31 X10^3/uL; Monocyte% 8.5 % (0-10); NRBC Flagged by Analyzer 0 % (0-5); Neutrophil # 2.25 X10^3/uL (2.7-7.7); Platelet Count 279 K/mm3 (150-450); RBC Distribution Width CV 13.2 % (11.6-14.6); RBC Distribution Width SD 48.3 fl (35.1-43.9); Red Blood Count 3.54 M/mm3 (4.2-5.4); White Blood Count 3.6 K/mm3 (4.4-11.0)
--- OUTSIDE RECORDS SUMMARY | 2023-07-21 12:36 | XMS RPT_ITS | CCD ---
Author Name Unknown Address [address] [place] [address] Organization [facility] Results Test Name Value Interpretation Reference Range Facil ity Summary Purpose Family History No Family History Records Found Advance Directives No Advanced Directives Records Found Additional Source Comments INFORMATION SOURCE (unrecogn ized section and content) FOR RECORDS PERTAINING TO PATIENTS WHO ARE OR HAVE BEEN ENROLLED IN A CHEMICAL DEPENDENCY/SUBSTANCEABUSE PROGRAM, SOME INFORMATION MAY BE OMITTED. This clinical summary was aggregated from multiple sources. Caution should be exercised in using it in the provision of clinical care. This summary normalizes information from multiple sources, and as a consequence, information in this document may materially change the coding, format and clinical context of patient data. In addition, data may be omitted in some cases. CLINICAL DECISIONS SHOULD BE BASED ON THE PRIMARY CLINICAL RECORDS. [employer] provides no warranty or guarantee of the accuracy or completeness of information in this document.
[2023-07-21 12:57] LABS: ALB/GLOB Ratio 0.9 RATIO (0.9-2.4); AST(SGOT) 26 U/L (15-37); Alanine Aminotransfer ALT/SGPT 29 U/L (13-56); Albumin, Serum 3.2 g/dL (3.2-5.0); Alkaline Phosphatase 58 U/L (45-117); Anion Gap 4 (5-15); BUN 15 mg/dL (7-18); BUN/Creat Ratio 14.4 RATIO (10-20); Calcium,Total 9.4 mg/dL (8.5-10.1); Chloride 105 mmol/L (98-107); Creatinine, Serum 1.04 mg/dL (0.55-1.02); EST Glomerular Filtration Rate 55 mL/min (>60); Est Glom Filt Rate - Afr Amer 67 mL/min (>60); Globulin 3.5 g/dL (2.2-4.2); Glucose 103 mg/dL (74-106); Potassium 3.6 mmol/L (3.5-5.1); Protein, Total 6.7 g/dL (6.4-8.2); Sodium Level 138 mmol/L (136-145)
== END | disposition home or self-care (01) ==
LOC: MTLAB 11:00
PROVIDERS: PCP Family Medicine; Referring Provider Internal Medicine Rheumatology; Visit Provider Internal Medicine Rheumatology
DX: M06.4 Inflammatory polyarthropathy (principal); Z79.899 Other long term (current) drug therapy; R76.8 Other specified abnormal immunological findings in serum; M79.7 Fibromyalgia
CPT/HCPCS: 36415; 80053; 85025

== ENCOUNTER → 2023-10-08 | Outpatient (CLI) | payer MEDICARE, OTHER, SELFPAY ==
[2023-10-08 15:51] LABS: Absolute Lymphocyte Count 2.23 X10^3/uL (0.83-4.51); Absolute Neutrophil Count 4.1 X10^3/uL (2.0-7.7); Basophil# 0.08 X10^3/uL; Basophil% 1.1 % (0-1); Eosinophil# 0.18 X10^3/uL; Eosinophils% 2.5 % (0-5); Hematocrit 38.2 % (37-47); Hemoglobin 12.3 g/dL (12.0-15.0); Lymphocyte # 2.23 X10^3/ul (0.83-4.51); Lymphocyte % 30.5 % (19-41); Mean Corp Hgb Conc 32.2 g/dL (32-36); Mean Corpuscular Hgb 32.8 pg (27.0-32.0); Mean Corpuscular Volume 101.9 fL (81-99); Mean Platelet Vol. 10.7 fl (6.2-12.0); Monocyte# 0.68 X10^3/uL; Monocyte% 9.3 % (0-10); NRBC Flagged by Analyzer 0 % (0-5); Neutrophil # 4.09 X10^3/uL (2.7-7.7); Neutrophil % 55.8 % (47-70); Platelet Count 388 K/mm3 (150-450); RBC Distribution Width CV 12.9 % (11.6-14.6); RBC Distribution Width SD 47.7 fl (35.1-43.9); Red Blood Count 3.75 M/mm3 (4.2-5.4); White Blood Count 7.3 K/mm3 (4.4-11.0)
[2023-10-08 16:29] LABS: ALB/GLOB Ratio 0.9 RATIO (0.9-2.4); AST(SGOT) 27 U/L (15-37); Alanine Aminotransfer ALT/SGPT 23 U/L (13-56); Albumin, Serum 3.3 g/dL (3.2-5.0); Alkaline Phosphatase 63 U/L (45-117); Anion Gap 3 (5-15); BUN 15 mg/dL (7-18); BUN/Creat Ratio 13.3 RATIO (10-20); Calcium,Total 9.4 mg/dL (8.5-10.1); Chloride 105 mmol/L (98-107); Creatinine, Serum 1.13 mg/dL (0.55-1.02); EST Glomerular Filtration Rate 50 mL/min (>60); Est Glom Filt Rate - Afr Amer 61 mL/min (>60); Globulin 3.7 g/dL (2.2-4.2); Glucose 87 mg/dL (74-106); Potassium 3.9 mmol/L (3.5-5.1); Sodium Level 140 mmol/L (136-145)
== END | disposition home or self-care (01) ==
LOC: MTLAB 14:10
PROVIDERS: PCP Family Medicine; Referring Provider Internal Medicine Rheumatology; Visit Provider Internal Medicine Rheumatology
DX: M06.4 Inflammatory polyarthropathy (principal); Z79.899 Other long term (current) drug therapy; R76.8 Other specified abnormal immunological findings in serum; M79.7 Fibromyalgia
CPT/HCPCS: 36415; 80053; 85025

== ENCOUNTER 2023-11-04 09:30 | Outpatient (RCR) | payer MEDICARE, OTHER, SELFPAY ==
--- NOTE | 2023-04-19 13:18 | HP.PTEVAL ---
Patient's Visit Information Visit Information Visit Information: YADIRA PEREZ is a 72 year old F referred to Physical Therapy by Dr. Neftaly Horan DO with a diagnosis of SPONDYLOLISTHESIS LUMBAR REGION. Date of Evaluation: 04/19/23 Physical Therapist: Jeff Dubose, PT, Cert MDT, OCS Visit Plan Frequency: 2x /Week Duration: 4 Months Plan: S/P LUMBAR FUSION 02/17/23 PT INTE[employer]ETIONS DLS ,POSTURE EX'S ,BLE FLEXABILITY , QUADS/HAMS/HIP ,LUMBAR ROM, AND ENDURANCE/GAIT TRAINING Subjective Subjective: This 72 y/o female presents to physical therapy with lumbar fusion done on Feb [address] Horan at [facility] and D/C to home Feb 19. Patient had lumbar stenosis with spondylolisthesis with stenosis which was seen on MRI. Patient bilateral radiculopathy in legs. Tried Injections epidural. Thus s/p bilateral posterior laminectomies L3 ,L4-,L5 bilateral partial facetectomy and L4-L5 ,posterodorsolateral L4-5 instruction , Medtronic ATS and L4-5 Patient d/c with back brace for 6weeks and no BLT and used rollator. Thus d/c lumbar . Last visit had x-rays looked good. Patient has minor pain right glut and back .Aggravating factors standing ,walking ,unable or lift to bend. Alleviating factors sitting and medication but patient stopped. Sleeping okay . Patient denies paranesthesia/tingling . No falls reported. Coughing /sneezing -. Bowel/bladder -. Patient needs rollator for gait and and ADL's. Patient condition affects QOL and function. Patient goals to return to normal but used rollator prior surgery for balance. SOCIAL: VOCATION: retired Pain Bilateral Back: Pain Intensity (Out of 10): 3 Pain Intensity Range: 10 Objective Objective: POSTURE: mild forward posture GAIT : reciprocal pattern with rollator INSCION : well approximate skin NEURO: denies paresthesia/tingling ,reflexes L3-4,L4-5 ,L5-S1 1/3,denies paresthesia/tingling MMT: quads/hams 4-/5 ,hip flexion 4-/5 ,ankle 4/5 LUMBAR ROM: flexion mod loss , extension severe loss ,side glide mod loss FLEXABLITY : hamstrings mod GAIT: ambulates with rollator slow ronel ,mild forward posture Special Tests L/S Slump test left side: Negative L/S Slump test right side: Negative L/S Left Straight Leg Raise: Negative L/S Right Straight Leg Raise: Negative Balance/Special Test Scores Oswestry Low Back Score: 30 Goals Goal 1:: Patient to be I with HEP for back Goal Time Frame: 4-6 Weeks Goal 2:: Patient to demonstrate 50% to improve function and ADL Goal Time Frame: 4-6 Weeks Goal 3:: Patient to improve lumbar ROM for function of recovery to put on shoes . Goal Time Frame: 4-6 Weeks Goal 4:: Patient to improve strength BLE 4/5 to improve gait Goal Time Frame: 4-6 Weeks Goal 5:: Patient to ambulate with no device in Home ambulation distances with improved gait pattern. Goal Time Frame: 4-6 Weeks Goal 6:: Patient to improve back oswestry by 5 points to improve QOL and function Goal Time Frame: 4-6 Weeks Rehabilitation Potential Physical Therapy Diagnosis: Patient s/p bilateral posterior laminectomies L3 ,L4-,L5 bilateral partial facetectomy and L4-L5 ,posterodorsolateral L4-5 instruction , Medtronic ATS and L4-5 Patient d/c with back brace . Patient uses rollator . Patient has impairments with decrease gait , weakness BLE and decrease Lumbar rom for function thus benefit from skilled PT Rehabilitation Potential: Good Anticipated Interventions Patient/Client Instruction: Educate patient on: Condition and Plan of Care For the Purpose of:: To decrease pain, To increase ROM, To improve muscle performance and motor function, To improve ability to perform ADL's, To increase tolerance to activity/condition/position, To improve ability of physical actions for home/community/work/leisure, To improve health of tissue, To decrease soft tissue restriction, To increase flexibility/ROM and To reduce risk of recurrence Therapeutic Exercise to Include: Strength training, Endurance training, Balance training, Body mechanics, Postural training, Flexibilty training, Active ROM and Dynamic Lumbar Stabilization Comment: BLE For the Purpose of:: To increase ROM, To improve muscle performance and motor function, To increase tolerance to activity/condition/position, To improve ability of physical actions for home/community/work/leisure, To improve health of tissue, To decrease soft tissue restriction, To increase flexibility/ROM and To prevent re-injury Text: Thank you for the opportunity to evaluate your patient. For Medicare and Medicare HMO plans, please review the plan of care and approve it. It will need to be FAXED BACK to us at [phone] for Medicare purposes. For Medicare only, by signing this I certify the plan of care. Please let me know if there are questions or concerns regarding this plan of care. Physician Signature: Date:
--- NOTE | 2023-05-18 10:37 | HP.PTREVAL ---
Re-Evaluation Intro: Dr. Neftaly Horan, DO, It has been my pleasure to treat YADIRA PEREZ over the last 8 visits for SPONDYLOLISTHESIS LUMBAR REGION. Please see the progress note below for an update on the physical therapy plan of care! Subjective Subjective: Feeling stronger Objective Objective/Function: POSTURE: mild forward posture GAIT : reciprocal pattern with rollator INSCION : well approximate skin NEURO: denies paresthesia/tingling ,reflexes L3-4,L4-5 ,L5-S1 1/3,denies paresthesia/tingling MMT: quads/hams 4/5 ,hip flexion 4-/5 ,ankle 4/5 LUMBAR ROM: flexion mod loss , extension mod/severe loss ,side glide mod loss FLEXABLITY : hamstrings mod Plan Plan Plan: S/P LUMBAR FUSION 02/17/23 PT [employer] DLS ,POSTURE EX'S ,BLE FLEXABILITY , QUADS/HAMS/HIP ,LUMBAR ROM, AND ENDURANCE/GAIT TRAINING Balance/Gait/Functional tests Balance/Special Test Scores Oswestry Low Back Score: 26 Goals Goals Goal 1:: Patient to be I with HEP for back Goal Time Frame: 4-6 Weeks Goal Progress: Progressing Goal 2:: Patient to demonstrate 50% to improve function and ADL Goal Time Frame: 4-6 Weeks Goal Progress: Progressing Goal 3:: Patient to improve lumbar ROM for function of recovery to put on shoes . Goal Time Frame: 4-6 Weeks Goal Progress: Progressing Goal 4:: Patient to improve strength BLE 4/5 to improve gait Goal Time Frame: 4-6 Weeks Goal Progress: Progressing Goal 5:: Patient to ambulate with no device in Home ambulation distances with improved gait pattern. Goal Time Frame: 4-6 Weeks Goal Progress: Progressing Goal 6:: Patient to improve back oswestry by 5 points to improve QOL and function Goal Time Frame: 4-6 Weeks Goal Progress: Progressing Anticipated Interventions Anticipated Interventions Patient/Client Instruction: Educate patient on: Condition and Plan of Care For the Purpose of:: To decrease pain, To increase ROM, To improve muscle performance and motor function, To improve ability to perform ADL's, To increase tolerance to activity/condition/position, To improve ability of physical actions for home/community/work/leisure, To improve health of tissue, To decrease soft tissue restriction, To increase flexibility/ROM and To reduce risk of recurrence Therapeutic Exercise to Include: Strength training, Endurance training, Balance training, Body mechanics, Postural training, Flexibilty training, Active ROM and Dynamic Lumbar Stabilization Comment: BLE For the Purpose of:: To increase ROM, To improve muscle performance and motor function, To increase tolerance to activity/condition/position, To improve ability of physical actions for home/community/work/leisure, To improve health of tissue, To decrease soft tissue restriction, To increase flexibility/ROM and To prevent re-injury Re-Evaluation Ending Re-evaluation ending: Please do not hesitate to contact me at [phone] by phone or if you have questions or concerns regarding this new plan of care! Sincerely, Jeff Dubose, PT, Cert MDT, OCS
--- NOTE | 2023-07-15 11:03 | HP.PTREVAL ---
Re-Evaluation Intro: Dr. Neftaly Horan, DO, It has been my pleasure to treat YADIRA PEREZ over the last 20 visits for SPONDYLOLISTHESIS LUMBAR REGION. Please see the progress note below for an update on the physical therapy plan of care! Subjective Subjective: Doing better overall Objective Objective/Function: POSTURE: mild forward posture GAIT : reciprocal pattern with rollator INSCION : well approximate skin NEURO: denies paresthesia/tingling ,reflexes L3-4,L4-5 ,L5-S1 1/3,denies paresthesia/tingling MMT: quads/hams 4/5 ,hip flexion 4-/5 ,ankle 4/5 LUMBAR ROM: flexion mod loss , extension mod/severe loss ,side glide mod loss FLEXABLITY : hamstrings mod Plan Plan Plan: cont with POC S/P LUMBAR FUSION 02/17/23 PT [employer] DLS ,POSTURE EX'S ,BLE FLEXABILITY , QUADS/HAMS/HIP ,LUMBAR ROM, AND ENDURANCE/GAIT TRAINING Balance/Gait/Functional tests Balance/Special Test Scores Oswestry Low Back Score: 26 Goals Goals Goal 1:: Patient to be I with HEP for back Goal Time Frame: 4-6 Weeks Goal Progress: Progressing Goal 2:: Patient to demonstrate 50% to improve function and ADL Goal Time Frame: 4-6 Weeks Goal Progress: Progressing Goal 3:: Patient to improve lumbar ROM for function of recovery to put on shoes . Goal Time Frame: 4-6 Weeks Goal Progress: Progressing Goal 4:: Patient to improve strength BLE 4/5 to improve gait Goal Time Frame: 4-6 Weeks Goal Progress: Progressing Goal 5:: Patient to ambulate with no device in Home ambulation distances with improved gait pattern. Goal Time Frame: 4-6 Weeks Goal Progress: Progressing Goal 6:: Patient to improve back oswestry by 5 points to improve QOL and function Goal Time Frame: 4-6 Weeks Goal Progress: Progressing Anticipated Interventions Anticipated Interventions Patient/Client Instruction: Educate patient on: Condition and Plan of Care For the Purpose of:: To decrease pain, To increase ROM, To improve muscle performance and motor function, To improve ability to perform ADL's, To increase tolerance to activity/condition/position, To improve ability of physical actions for home/community/work/leisure, To improve health of tissue, To decrease soft tissue restriction, To increase flexibility/ROM and To reduce risk of recurrence Therapeutic Exercise to Include: Strength training, Endurance training, Balance training, Body mechanics, Postural training, Flexibilty training, Active ROM and Dynamic Lumbar Stabilization Comment: BLE For the Purpose of:: To increase ROM, To improve muscle performance and motor function, To increase tolerance to activity/condition/position, To improve ability of physical actions for home/community/work/leisure, To improve health of tissue, To decrease soft tissue restriction, To increase flexibility/ROM and To prevent re-injury Re-Evaluation Ending Re-evaluation ending: Please do not hesitate to contact me at [phone] by phone or if you have questions or concerns regarding this new plan of care! Sincerely, Jeff Dubose, PT, Cert MDT, OCS
--- NOTE | 2023-08-19 10:07 | HP.PTREVAL ---
Re-Evaluation Intro: Dr. Neftaly Horan, DO, It has been my pleasure to treat YADIRA PEREZ over the last 29 visits for SPONDYLOLISTHESIS LUMBAR REGION. Please see the progress note below for an update on the physical therapy plan of care! Subjective Subjective: Seen Dr did x-rays every thing looks good Objective Objective/Function: POSTURE: mild forward posture GAIT : reciprocal pattern with rollator ( short distances no device slow unsteady decrease step length INSCION : intact NEURO: denies paresthesia/tingling ,reflexes L3-4,L4-5 ,L5-S1 1/3,denies paresthesia/tingling MMT:( peak force) quads R 2,7 ,L 28.2hams R 26.8 ,L 25.2 ,hip flexion R 23.3 ,L 24.3 ,ankle 4/5 LUMBAR ROM: flexion mod loss , extension mod/severe loss ,side glide mod loss FLEXABLITY : hamstrings mod Plan Plan Plan: cont with POC S/P LUMBAR FUSION 02/17/23 PT [employer] DLS ,POSTURE EX'S ,BLE FLEXABILITY , QUADS/HAMS/HIP ,LUMBAR ROM, AND ENDURANCE/GAIT TRAINING Balance/Gait/Functional tests Balance/Special Test Scores Oswestry Low Back Score: 21 Goals Goals Goal 1:: Patient to be I with HEP for back Goal Time Frame: 4-6 Weeks Goal Progress: Progressing Goal 2:: Patient to demonstrate 60% to improve function and ADL Goal Time Frame: 4-6 Weeks Goal Progress: ( NEW GOAL) Goal 3:: Patient to improve lumbar ROM for function of recovery to put on shoes . Goal Time Frame: 4-6 Weeks Goal Progress: Progressing Goal 4:: Patient to improve strength BLE peak force by 5-10 # to improve function with gait Goal Time Frame: 4-6 Weeks Goal Progress: (New goal) Goal 5:: Patient to ambulate with no device in Home ambulation distances with improved gait pattern. Goal Time Frame: 4-6 Weeks Goal Progress: Progressing Goal 6:: Patient to improve back oswestry by 5 points to improve QOL and function Goal Time Frame: 4-6 Weeks Goal Progress: Progressing Anticipated Interventions Anticipated Interventions Patient/Client Instruction: Educate patient on: Condition and Plan of Care For the Purpose of:: To decrease pain, To increase ROM, To improve muscle performance and motor function, To improve ability to perform ADL's, To increase tolerance to activity/condition/position, To improve ability of physical actions for home/community/work/leisure, To improve health of tissue, To decrease soft tissue restriction, To increase flexibility/ROM and To reduce risk of recurrence Therapeutic Exercise to Include: Strength training, Endurance training, Balance training, Body mechanics, Postural training, Flexibilty training, Active ROM and Dynamic Lumbar Stabilization Comment: BLE For the Purpose of:: To increase ROM, To improve muscle performance and motor function, To increase tolerance to activity/condition/position, To improve ability of physical actions for home/community/work/leisure, To improve health of tissue, To decrease soft tissue restriction, To increase flexibility/ROM and To prevent re-injury Re-Evaluation Ending Re-evaluation ending: Please do not hesitate to contact me at [phone] by phone or if you have questions or concerns regarding this new plan of care! Sincerely, Jeff Dubose, PT, Cert MDT, OCS
--- NOTE | 2023-09-21 10:44 | HP.PTREVAL ---
Re-Evaluation Intro: Dr. Neftaly Horan, DO, It has been my pleasure to treat YADIRA PEREZ over the last 30 visits for SPONDYLOLISTHESIS LUMBAR REGION. Please see the progress note below for an update on the physical therapy plan of care! Subjective Subjective: Just got back from vacation Doing okay Ambulates with cane at home`or no device short distances Objective Objective/Function: * Patient progressing with strength in legs and ambulated with cane in PT DEPT 100 ft x2 with CGA/SBA 2 point gait thus will cont to benefit from skilled PT to improve gait no device or cane and function endurance* POSTURE: mild forward posture GAIT : Ambulated with CGA/SBA with cane 100 ft x2 2 point gait slow ronel ( short distances no device slow unsteady decrease step length without rollator) INSCION : intact NEURO: denies paresthesia/tingling ,reflexes L3-4,L4-5 ,L5-S1 1/3,denies paresthesia/tingling MMT:( peak force) quads R 44.6 ,L 37.8 ,hams R 33.8 ,L 32,.2 ,hip flexion R 46.6 ,L 34.1 ,ankle 4/5 LUMBAR ROM: flexion mod loss , extension mod/severe loss ,side glide mod loss FLEXABLITY : hamstrings mod Plan Plan Plan: cont with POC S/P LUMBAR FUSION 02/17/23 PT [employer] DLS ,POSTURE EX'S ,BLE FLEXABILITY , QUADS/HAMS/HIP ,LUMBAR ROM, AND ENDURANCE/GAIT TRAINING Balance/Gait/Functional tests Balance/Special Test Scores Oswestry Low Back Score: 21 Goals Goals Goal 1:: Patient to be I with HEP for back Goal Time Frame: 4-6 Weeks Goal Progress: Progressing Goal 2:: Patient to demonstrate 60% to improve function and ADL Goal Time Frame: 4-6 Weeks Goal Progress: ( NEW GOAL) Goal 3:: Patient to improve lumbar ROM for function of recovery to put on shoes . Goal Time Frame: 4-6 Weeks Goal Progress: Progressing Goal 4:: Patient to improve strength BLE peak force by 5-10 # to improve function with gait Goal Time Frame: 4-6 Weeks Goal Progress: (New goal) Goal 5:: Patient to ambulate with no devic in Home ambulation distances with improved gait pattern. Goal Time Frame: 4-6 Weeks Goal Progress: Progressing Goal 6:: Patient to improve back oswestry by 5 points to improve QOL and function Goal Time Frame: 4-6 Weeks Goal Progress: Progressing Anticipated Interventions Anticipated Interventions Patient/Client Instruction: Educate patient on: Condition and Plan of Care For the Purpose of:: To decrease pain, To increase ROM, To improve muscle performance and motor function, To improve ability to perform ADL's, To increase tolerance to activity/condition/position, To improve ability of physical actions for home/community/work/leisure, To improve health of tissue, To decrease soft tissue restriction, To increase flexibility/ROM and To reduce risk of recurrence Therapeutic Exercise to Include: Strength training, Endurance training, Balance training, Body mechanics, Postural training, Flexibilty training, Active ROM and Dynamic Lumbar Stabilization Comment: BLE For the Purpose of:: To increase ROM, To improve muscle performance and motor function, To increase tolerance to activity/condition/position, To improve ability of physical actions for home/community/work/leisure, To improve health of tissue, To decrease soft tissue restriction, To increase flexibility/ROM and To prevent re-injury Re-Evaluation Ending Re-evaluation ending: Please do not hesitate to contact me at [phone] by phone or if you have questions or concerns regarding this new plan of care! Sincerely, Jeff Dubose PT, Cert MDT, OCS
--- NOTE | 2023-11-04 10:15 | HP.PTDCSUM_ITS ---
Discharge Summary D/C summary: It has been my pleasure to treat YADIRA PEREZ referred by Dr. Neftaly Horan DO, with the diagnosis of SPONDYLOLISTHESIS LUMBAR REGION for a total of 40 visit(s). Discharge Date: 11/04/23 Please see the following information for a summary of their discharge status. Subjective Subjective: Doing okay plan to do ex's at home Uses cane in home ,rollator Dizziness conts to be problem ..sees Chiropractor for dizziness Discussed with patient to see DR for dizzienss Pain Bilateral Back: Pain Intensity (Out of 10): 3 Overall Improvement % Improvement: 40 Objective Objective/Function: POSTURE: mild forward posture GAIT : Ambulated with CGA/SBA with cane 100 ft x2 2 point gait slow ronel ( short distances no device slow unsteady decrease step length without rollator) INSCION : intact NEURO: denies paresthesia/tingling ,reflexes L3-4,L4-5 ,L5-S1 1/3,denies paresthesia/tingling MMT:( peak force) quads R 44.6 ,L 30.8 ,hams R 33.3 ,L 32,.9 ,hip flexion R 44.6 ,L 34.9 ,ankle 4/5 LUMBAR ROM: flexion mod loss , extension mod/severe loss ,side glide mod loss FLEXABLITY : hamstrings mod Goals Goal 1:: Patient to be I with HEP for back Goal Progress: Goal Met Goal 2:: Patient to demonstrate 60% to improve function and ADL Goal Progress: Goal Met Goal 3:: Patient to improve lumbar ROM for function of recovery to put on shoes . Goal Progress: Goal Met Goal 4:: Patient to improve strength BLE peak force by 5-10 # to improve func tion with gait Goal Progress: Goal Met Goal 5:: Patient to ambulate with no devic in Home ambulation distances with improved gait pattern. Goal Progress: Goal Met Goal 6:: Patient to improve back oswestry by 5 points to improve QOL and function Goal Progress: Goal Met Plan Plan: d/c hep D/C Information Discharge Comments: HEP d/c sentence: If there are questions or concerns regarding this patient's physical therapy, please feel free to call me at [phone]. Thank you for the referral of this patient. Sincerely, Jeff Androsik, PT, Cert MDT, OCS Balance/Gait/Functional tests Balance/Special Test Scores Oswestry Low Back Score: 20 Improvement % Improvement: 40
== END 2023-11-04 10:38 | disposition home or self-care (01) ==
LOC: PT 09:30
PROVIDERS: PCP Family Medicine; Visit Provider Orthopaedic Surgery
DX: M43.16 Spondylolisthesis, lumbar region (principal)
CPT/HCPCS: 97110; 97162; 97530

== ENCOUNTER → 2023-11-11 | Outpatient (CLI) | payer MEDICARE, OTHER, SELFPAY | END | disposition home or self-care (01) | LOC: SL 11:21 | PROVIDERS: PCP Family Medicine; Referring Provider Nurse Practitioner Acute Care; Visit Provider Nurse Practitioner Acute Care | DX: G47.33 Obstructive sleep apnea (adult) (pediatric) (principal) | CPT/HCPCS: 98960; G0463 ==

== ENCOUNTER → 2023-12-24 | Outpatient (CLI) | payer MEDICARE, OTHER, SELFPAY ==
--- NOTE | 2023-12-24 06:42 | MRI_ITS ---
STUDY: MRI CERVICAL SPINE WITHOUT CONTRAST REASON FOR EXAM: Female, 73 years old. neck pain; gait disorder TECHNIQUE: Standardized fat and water weighted pulse sequences were obtained in the sagittal and axial planes. Mild motion artifact is present on several sequences. COMPARISON: MRI of the cervical spine dated May 22, 2022 FINDINGS: Small simple lingual cyst seen (incidentally) in the posterior base of the tongue on image 7/15 series 9, measuring 1.63 cm in diameter and does not require any additional imaging or assessment. Normal foramen magnum and brainstem-cervical cord junction. Normal craniovertebral junction. Normal anterior atlantoaxial articulation. Normal odontoid process. Normal cervical lordosis. Normal vertebral bodies and posterior osseous elements. C2-3: Normal endplates. Diffuse disc desiccation and mild posterior disc space narrowing with slight annular bulging. Normal central canal and right neural foramen. Mild to moderate left foraminal stenosis with nerve root impingement is present due to combined uncovertebral facet joint hypertrophy. C3-4: Normal endplates. Mild to moderate disc space narrowing with only minimal posterior annular bulging. Mild intrinsic central canal stenosis. Moderate left and severe right foraminal stenosis with nerve root compression due to uncovertebral and facet joint hypertrophy. C4-5: Diffuse disc desiccation with mild disc space narrowing and slight annular bulging. Moderate to severe bilateral foraminal stenosis with nerve root compression due to combined uncovertebral facet joint hypertrophy. Normal central canal. C5-6: Mild posterior disc space narrowing and slight annular bulging. Mild disc desiccation. Severe bilateral foraminal stenosis with nerve root compression due to significant facet joint and uncovertebral hypertrophy. Normal central canal. C6-7: Moderate disc space narrowing with minor annular bulging and anterior endplate spurring. Normal central canal and intervertebral neural foramina. Facet joint hypertrophy C7-T1: Mild disc space narrowing without posterior disc herniation or bulging. Normal central canal and intervertebral neural foramina. Normal cervical cord. There is no demonstrated cervical cord syrinx cavity. Normal visualized soft tissue structures. MRI/Spine Cervical (Routine) IMPRESSION: 1. Multilevel degenerative changes, as described above. 2. Multilevel foraminal stenosis with nerve root compression 3. Mild central canal stenosis at C3-C4. Electronically Signed: Nemesio Patel MD at 11:46 EDT ,
--- NOTE | 2023-12-24 06:42 | MRI_ITS ---
STUDY: MRI LUMBAR SPINE WITH AND WITHOUT CONTRAST REASON FOR EXAM: Female, 73 years old. low back pain; gait imbalance TECHNIQUE: Standardized fat and water weighted pulse sequences were obtained in the sagittal and axial planes. IV 19cc clariscan was administered for the contrast portion of the examination. COMPARISON: CT lumbar spine dated February 21, 2023. MRI of the lumbar spine dated March 31, 2022 FINDINGS: Normal lumbar lordosis. There is no substantial scoliosis. Normal conus medullaris that terminates at the T12-L1 level. No marrow edema or fracture or compression deformity is present. Stable posterior spinal rods and pedicle screws at the L4-L5 level. Stable posterior surgical decompressive defect at the same level. There is postcontrast enhancement of the fibrosis in the surgical bed but no focal or suspicious enhancement of the vertebral bodies, intervertebral disc, nerve roots, or distal aspect of the spinal cord. No epidural fluid collection is present. T12-L1: Normal endplates. Normal disc height, hydration and morphology. Normal bilateral facet joints. Normal central canal and bilateral lateral recesses. Normal bilateral intervertebral neural foramina. L1-2: Mild anterior endplate spurring Normal disc height, hydration and morphology. Normal bilateral facet joints. Normal central canal and bilateral lateral recesses. Normal bilateral intervertebral neural foramina. L2-3: Mild anterior endplate spurring. Diffuse disc desiccation. Normal disc height and morphology. Normal bilateral facet joints. Normal central canal and bilateral lateral recesses. Normal bilateral intervertebral neural foramina. L3-4: Normal endplates. Diffuse disc desiccation with mild posterior disc space narrowing but no herniation or bulging of the disc moderate facet joint hypertrophy. Mild to moderate bilateral frontal foraminal stenosis with posterior nerve root impingement. Normal central canal and bilateral lateral recesses. L4-5: Anterolisthesis of L4 and L5 of less than 2 mm. Diffuse disc desiccation with mild disc space narrowing and slight annular bulging. Mild anterior endplate spurring. Mild facet joint hypertrophy. Normal central canal and bilateral lateral recesses. Normal bilateral intervertebral neural foramina. L5-S1: Normal endplates. Normal disc height, hydration and morphology. Mild facet joint hypertrophy.. Normal central canal and bilateral lateral recesses. Normal right neural foramen. Mild to moderate left foraminal stenosis with posterior nerve root impingement. Normal visualized sacral ala. Normal visualized paraspinous soft tissue structures. No visualized arachnoiditis. MRI/Spine Lumbar W/WO Contrast IMPRESSION: 1. There is postcontrast enhancement of the fibrosis in the surgical bed but no focal or suspicious enhancement of the vertebral bodies, intervertebral disc, nerve roots, or distal aspect of the spinal cord. No epidural fluid collection is present. 2. No visualized arachnoiditis. 3. Multilevel degenerative changes, as described above. Electronically Signed: Nemesio Patel MD at 12:49 EDT Reading Location ID and State: [facility] / [place] , Service support ,
[2023-12-24 07:07] LABS: CREATININE FINGERSTICK < 1.0 mg/dL (0.55-1.02); EGFR FINGERSTICK > 60.0000 mL/min (>60)
== END | disposition home or self-care (01) ==
LOC: MRI 06:25
PROVIDERS: PCP Family Medicine; Referring Provider Psychiatry & Neurology Neurology; Visit Provider Psychiatry & Neurology Neurology
DX: M43.26 Fusion of spine, lumbar region (principal); R26.9 Unspecified abnormalities of gait and mobility
CPT/HCPCS: 72141; 72158; A9575

== ENCOUNTER → 2023-12-31 | Outpatient (CLI) | payer MEDICARE, OTHER, SELFPAY ==
[2023-12-31 15:44] LABS: Absolute Lymphocyte Count 1.38 X10^3/uL (0.83-4.51); Absolute Neutrophil Count 2.6 X10^3/uL (2.0-7.7); Basophil# 0.04 X10^3/uL; Basophil% 0.9 % (0-1); Eosinophil# 0.12 X10^3/uL; Eosinophils% 2.6 % (0-5); Hematocrit 38.2 % (37-47); Lymphocyte # 1.38 X10^3/ul (0.83-4.51); Lymphocyte % 30.4 % (19-41); Mean Corp Hgb Conc 31.4 g/dL (32-36); Mean Corpuscular Hgb 32.3 pg (27.0-32.0); Monocyte# 0.41 X10^3/uL; NRBC Flagged by Analyzer 0 % (0-5); Neutrophil # 2.58 X10^3/uL (2.7-7.7); Neutrophil % 56.9 % (47-70); Platelet Count 299 K/mm3 (150-450); RBC Distribution Width SD 48.1 fl (35.1-43.9); Red Blood Count 3.71 M/mm3 (4.2-5.4); White Blood Count 4.5 K/mm3 (4.4-11.0)
[2023-12-31 16:04] LABS: AST(SGOT) 24 U/L (15-37); Alanine Aminotransfer ALT/SGPT 24 U/L (13-56); Albumin, Serum 3.5 g/dL (3.2-5.0); Alkaline Phosphatase 54 U/L (45-117); Anion Gap 7 (5-15); BUN 14 mg/dL (7-18); BUN/Creat Ratio 14.2 RATIO (10-20); Calcium,Total 9.3 mg/dL (8.5-10.1); Chloride 104 mmol/L (98-107); Creatinine, Serum 0.98 mg/dL (0.55-1.02); EST Glomerular Filtration Rate 59 mL/min (>60); Est Glom Filt Rate - Afr Amer 71 mL/min (>60); Globulin 3.4 g/dL (2.2-4.2); Glucose 134 mg/dL (74-106); Potassium 3.5 mmol/L (3.5-5.1); Protein, Total 6.9 g/dL (6.4-8.2); Sodium Level 142 mmol/L (136-145)
== END | disposition home or self-care (01) ==
LOC: MTLAB 14:09
PROVIDERS: PCP Family Medicine; Referring Provider Internal Medicine Rheumatology; Visit Provider Internal Medicine Rheumatology
DX: M06.4 Inflammatory polyarthropathy (principal); R76.8 Other specified abnormal immunological findings in serum; M79.7 Fibromyalgia; Z79.899 Other long term (current) drug therapy
CPT/HCPCS: 36415; 80053; 85025

== ENCOUNTER → 2024-03-27 | Outpatient (CLI) | payer MEDICARE, OTHER, SELFPAY ==
[2024-03-27 15:23] LABS: Absolute Lymphocyte Count 1.03 X10^3/uL (0.83-4.51); Absolute Neutrophil Count 3.5 X10^3/uL (2.0-7.7); Basophil# 0.06 X10^3/uL; Basophil% 1.2 % (0-1); Hematocrit 38.1 % (37-47); Hemoglobin 12.1 g/dL (12.0-15.0); Lymphocyte # 1.03 X10^3/ul (0.83-4.51); Lymphocyte % 20.2 % (19-41); Mean Corp Hgb Conc 31.8 g/dL (32-36); Mean Corpuscular Hgb 32.7 pg (27.0-32.0); Monocyte% 7.8 % (0-10); NRBC Flagged by Analyzer 0 % (0-5); Neutrophil % 68.4 % (47-70); Platelet Count 264 K/mm3 (150-450); RBC Distribution Width CV 12.7 % (11.6-14.6); RBC Distribution Width SD 48.2 fl (35.1-43.9); White Blood Count 5.1 K/mm3 (4.4-11.0)
[2024-03-27 16:08] LABS: ALB/GLOB Ratio 1.1 RATIO (0.9-2.4); AST(SGOT) 22 U/L (15-37); Alanine Aminotransfer ALT/SGPT 19 U/L (13-56); Albumin, Serum 3.3 g/dL (3.2-5.0); Alkaline Phosphatase 43 U/L (45-117); Anion Gap 5 (5-15); BUN 13 mg/dL (7-18); BUN/Creat Ratio 12.7 RATIO (10-20); Calcium,Total 9.4 mg/dL (8.5-10.1); Chloride 106 mmol/L (98-107); Creatinine, Serum 1.02 mg/dL (0.55-1.02); EST Glomerular Filtration Rate 56 mL/min (>60); Est Glom Filt Rate - Afr Amer 68 mL/min (>60); Globulin 3.1 g/dL (2.2-4.2); Glucose 126 mg/dL (74-106); Potassium 3.8 mmol/L (3.5-5.1); Protein, Total 6.4 g/dL (6.4-8.2); Sodium Level 140 mmol/L (136-145)
== END | disposition home or self-care (01) ==
PROVIDERS: PCP Family Medicine; Referring Provider Internal Medicine Rheumatology; Visit Provider Internal Medicine Rheumatology
DX: M06.4 Inflammatory polyarthropathy (principal); Z79.899 Other long term (current) drug therapy; R76.8 Other specified abnormal immunological findings in serum; M79.7 Fibromyalgia
CPT/HCPCS: 36415; 80053; 85025

== ENCOUNTER 2024-04-09 10:30 | Emergency (ER) | payer MEDICARE, OTHER, SELFPAY ==
[2024-04-09 10:30] VITALS: BP 134/74; PULSE 81; RESP 14; TEMP 36.1; O2SAT 98; BMI 32.3
--- NOTE | 2024-04-09 10:49 | EX.ED.UPPERE ---
HPI History of Present Illness HPI Narrative: 73-year-old female tripped and fell over a piece of exercise equipment at home injuring her right hand occurred around 930 this morning. Denies other injuries. Not on any blood thinners. Said she struck her ear but her head and her ear do not hurt. No LOC. No neck pain. Chief Complaint: Upper Extremity Injury Informant: patient and spouse/S.O. Occured/Mechanism Mechanism/Context: Yes injury and Yes blunt trauma Onset/Context/Timing Onset: Today and Hours Context: Sudden Onset Timing: Continuous Quality of Pain: Sharp Current Severity: Mild Maximum Severity: Mild Associated Symptoms Associated Symptoms: Negative for Parasthesia, Weakness or Loss of Funtion Narrative Narrative: [id number] female tripped and fell at home injuring her right hand. Complaining of pain along the medic carpal phalangeal joints. No prior hand surgery. Denies other complaints. Prior similar symptoms: No Recent Illness/Hospitalization: No PFSH PFSH Medical History Fusion of lumbar spine Macrocytic anemia Anisocoria Stroke/cerebrovascular accident Hypoxia Dysarthria Acute bronchitis, unspecified Acute maxillary sinusitis, unspecified Orthostatic hypotension Depression Anxiety Expressive aphasia Carpal tunnel syndrome, right Dyspnea on exertion Hot flashes Depressive disorder Stress incontinence in female Migraine headache Osteoporosis Osteoarthritis Thickened endometrium Uterine fibroid Enlarged uterus Vertigo Vaginal ulcer Hypertension Home Medications ?Medication ?Instructions ?Recorded ?Last Taken ?Type ibandronate 150 mg tablet 150 mg PO Q30D BONE HEALTH 11/26/15 09/16/22 History calcium carbonate 500 mg-vitamin 1 tab PO TID SUPPLEMENT 04/07/22 2 Days Ago History D3 10 mcg (400 unit) tablet ~10/06/22 folic acid 1 mg tablet 1 mg PO DAILY SUPPLEMENT 04/07/22 2 Days Ago History ~10/06/22 hydroxychloroquine 200 mg tablet 200 mg PO BID RHEUMATOID ARTHRITIS 04/07/22 2 Days Ago History (Plaquenil) ~10/06/22 methotrexate sodium 2.5 mg tablet 15 mg PO ARIAS RHEUMATOID ARTHRITIS 04/07/22 10/04/22 History potassium chloride 10 mEq 10 meq PO BID SUPPLEMENT 04/07/22 2 Days Ago History tablet,extended release(part/cryst) ~10/06/22 aspirin 81 mg tablet,delayed 81 mg PO DAILY HEART HEALTH 10/08/22 2 Days Ago History release (Adult Low Dose Aspirin) ~10/06/22 duloxetine 60 mg capsule,delayed 60 mg PO BID DEPRESSION 10/08/22 2 Days Ago History release ~10/06/22 ferrous sulfate 325 mg (65 mg 325 mg PO DAILY SUPPLEMENT 10/08/22 2 Days Ago History iron) tablet ~10/06/22 cyanocobalamin (vitamin B-12) 1,000 mcg subcut QMONTH supplement 02/22/23 02/13/23 History 1,000 mcg/mL injection solution (Dodex) acetaminophen 500 mg tablet 1,000 mg (2 x 500 mg) PO Q6H PRN 03/09/23 Unknown Rx pain, mild #1 TAB meclizine 12.5 mg tablet 12.5 mg PO BID PRN dizziness #180 12/14/23 Unknown Rx tabs buspirone 10 mg tablet 10 mg PO BID #180 tabs 04/04/24 Unknown Rx propranolol 10 mg tablet 10 mg PO BID HTN #180 tabs 04/04/24 Unknown Rx Allergy/AdvReac Type Severity Reaction Status Date / Time codeine Allergy Rash Verified 04/09/24 10:31 Family History Sister Lupus Mother CVA (cerebral vascular accident) Heart disease Hypertension Father Heart disease Hypertension Brother Heart disease Sister Diabetes Surgical History H/O dilation and curettage History of hernia surgery History of tonsillectomy H/O tubal ligation History of hip surgery Social History adopted: No household members: spouse housing: house number of children: 1 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 status: 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 Constitutional Constitutional ED: Denies chills or fever(s) Eyes Eyes: Denies blurry vision ENT ENT ED: Denies ear pain Cardiovascular Cardiovascular: Denies chest pain Respiratory/Chest Respiratory/Chest: Denies cough or dyspnea Gastrointestinal Gastrointestinal: Denies abdominal pain Genitourinary Genitourinary ED: Denies dysuria Musculoskeletal Musculoskeletal: Denies back pain Integumentary Denies abscess Neurologic Neurologic: Denies headache(s) Psychiatric Psychiatric: Denies anxiety Endocrine Endocrinology: Denies cold intolerance Hematologic/Lymphatic Hematologic/Lymphatic: Denies easy bleeding Allergic/Immunologic Allergic/Immunologic ED: Denies mouth swelling EXAM Physical Exam Narrative Exam Narrative: 73-year-old female sitting in a wheelchair. Vital signs are stable afebrile. at at her side. H EENT exam pupils are manage light. No facial trauma. She has mild tenderness to top of her right ear but there is no bruising or swelling. Right side of her head is nontender. No signs of trauma. Neck nontender. Lungs clear. Heart regular rhythm rate about 80. Chest wall ribs nontender. Abdomen soft nontender. Pelvic girdle intact. She has normal range of motion to both upper and lower extremities. No deformity. She has tenderness along her right hand. Primarily the metacarpal phalangeal joints. She is able to open and close her hand. The wrist there is no bony deformity. Right forearm, elbow, shoulder are nontender. Left upper extremity nontender. Back and spine nontender. She is able to stand up with mild assistance from myself and her . Lower extremities are nontender. She is awake and alert. No focal motor deficits. Const Vital Signs: 04/09/24 10:30 Temperature 96.9 F L Temperature Source Temporal Pulse Rate 81 Respiratory Rate 14 Blood Pressure 134/74 H Blood Pressure Mean 94 Pulse Ox 98 Oxygen Delivery Method Room Air Positive well nourished and well developed; Negative for cachectic, contractures or unkempt General Appearance ED: well developed; Negative for unkempt, cachectic, contractures, cyanotic or diaphoretic Nutritional Appearance: Negative for cachectic HEENT Reports moist mucous membranes HEENT Narrative: Tenderness along the top of her right ear. No bruise or laceration. Scalp nontender no hematoma. normocephalic and atraumatic; Negative for trauma or tenderness Eyes PERRL Neck full ROM and supple General: Negative for tenderness Chest Wall inspection of chest normal and palpation of chest normal Chest: Negative for other Resp normal respiratory effort and clear to auscultation bilaterally Effort and Inspection: Negative for pain with movement Auscultation: Negative for rales, rhonchi, wheezes or diminished lung sounds Cardio regular rate, regular rhythm, S1 normal heart sound, S2 normal heart sound and no murmurs Rate: Negative for bradycardia or tachycardic Rhythm: Negative for abnormal rhythm GI non-tender, non-distended and no masses Palpation: soft; Negative for tender, guarding or rebound tenderness present Back/Spine no CVA tenderness Extremity normal to inspection and full ROM Extremity Narrative: Tenderness along the right hand metacarpal phalangeal joints. No deformity. Able to open close her hand. No deformity of the wrist. General Extremety ED: Negative for edema General Extremity: Negative for edema Neuro oriented x3, CN's II-XII intact bilaterally, moves all extremities and no focal motor deficits Sensorium / Orientation: alert, oriented to person, oriented to place and oriented to time; Negative for orientation impaired Motor Exam: strength 5/5 throughout Psych mental status grossly normal Appearance: Negative for unkempt Attitude: No agitated Mood & Affect: Negative for depressed, anxious or tearful Skin General Skin Exam: Negative for petechiae Rashes: no rashes Trauma: no lacerations or abrasions; Negative for abrasion, laceration or puncture MDM MDM MDM Narrative Medical decision making narrative: 73-year-old female fell injuring her right hand x-ray being obtained to rule out fracture or dislocation. She already took pain medication at home did not want a thing for pain currently. History & Record Review Discussion w/independent historian: Patient and Family Radiography Diagnostic Testing: Right hand x-ray, 3 views, interpreted by myself and the radiologist shows midshaft fractures of the right small and long finger metacarpals. A will go over the x-ray with the patient and her . Procedures Upper Extremity Splints Upper Extremity Splint: Orthoglass and Ulnar gutter Splint Fabrication: Fabricated Location: Right (Well-padded right hand short arm ulnar gutter splint for both the small and ring finger metacarpal fractures.) Discharge Plan Triage Chief Complaint: Upper Extremity Injury ED Provider: Yao Negrete Dx/Rx/DC Orders Prescriptions: No Action folic acid 1 mg tablet 1 mg PO DAILY methotrexate sodium 2.5 mg tablet 15 mg PO ARIAS hydroxychloroquine [Plaquenil] 200 mg tablet 200 mg PO BID calcium carbonate-vitamin D3 500 mg-10 mcg (400 unit) tablet 1 tab PO TID potassium chloride 10 mEq tablet,ER particles/crystals 10 meq PO BID meclizine 12.5 mg tablet 12.5 mg PO BID PRN (Reason: dizziness) Qty: 180 1RF propranolol 10 mg tablet 10 mg PO BID Qty: 180 1RF buspirone 10 mg tablet 10 mg PO BID Qty: 180 1RF ibandronate 150 MG tablet 150 mg PO Q30D ferrous sulfate 325 mg (65 mg iron) Tablet 325 mg PO DAILY duloxetine 60 mg capsule,delayed release(DR/EC) 60 mg PO BID aspirin [Adult Low Dose Aspirin] 81 mg tablet,delayed release (DR/EC) 81 mg PO DAILY cyanocobalamin (vitamin B-12) [Dodex] 1,000 mcg/mL solution 1,000 mcg subcut QMONTH acetaminophen 500 mg Tablet 1,000 mg PO Q6H PRN (Reason: pain, mild) Qty: 1 0RF Primary Care Provider: Carl Bourgeois Referrals: Carl Bourgeois DO [Primary Care Provider] - Print Language: Slovenian
--- NOTE | 2024-04-09 10:51 | RAD_ITS ---
INDICATION: injury EXAMINATION/TECHNIQUE: X-RAY - RIGHT XR Hand Min 3 Views 3 VIEWS COMPARISON: No relevant prior comparison study available FINDINGS: SOFT TISSUES: No soft tissue swelling or gas. No radiopaque foreign body. BONES/JOINTS: There is an oblique fracture within the diaphysis of the fourth metacarpal. There is a fracture within the diaphysis of the fifth metacarpal as well. No dislocation is visualized. There are degenerative changes throughout the wrist and hand. No sclerotic or destructive changes observed. RAD/Hand Min 3 Views IMPRESSION: Fourth and fifth metacarpal fractures. Degenerative changes. Electronically Signed: Fabi Montero MD at 11:19 EDT ,
[2024-04-09 12:37] VITALS: BP 139/72; PULSE 69; RESP 14; TEMP 36.8; O2SAT 99
== END 2024-04-09 12:38 | disposition home or self-care (01) ==
PROVIDERS: Emergency Provider Emergency Medicine; PCP Family Medicine; Visit Provider Emergency Medicine
DX: S59.911A Unspecified injury of right forearm, initial encounter (principal); I10 Essential (primary) hypertension; W01.0XXA Fall on same level from slipping, tripping and stumbling without subsequent striking against object, initial encounter; Y92.009 Unspecified place in unspecified non-institutional (private) residence as the place of occurrence of the external cause; Z86.73 Personal history of transient ischemic attack (TIA), and cerebral infarction without residual deficits; Z79.899 Other long term (current) drug therapy; Z79.82 Long term (current) use of aspirin; F32.A Depression, unspecified; F41.9 Anxiety disorder, unspecified; Z98.51 Tubal ligation status
CPT/HCPCS: 29125; 73130; 99282

== ENCOUNTER → 2024-06-21 | Outpatient (CLI) | payer MEDICARE, OTHER, SELFPAY ==
[2024-06-21 17:54] LABS: Absolute Lymphocyte Count 1.51 X10^3/uL (0.83-4.51); Absolute Neutrophil Count 3.4 X10^3/uL (2.0-7.7); Basophil# 0.06 X10^3/uL; Basophil% 1.1 % (0-1); Eosinophils% 1.8 % (0-5); Hemoglobin 11.8 g/dL (12.0-15.0); Lymphocyte # 1.51 X10^3/ul (0.83-4.51); Lymphocyte % 27.6 % (19-41); Mean Corp Hgb Conc 31.9 g/dL (32-36); Mean Corpuscular Hgb 32.5 pg (27.0-32.0); Mean Corpuscular Volume 101.9 fL (81-99); Mean Platelet Vol. 10.5 fl (6.2-12.0); Monocyte% 7.3 % (0-10); NRBC Flagged by Analyzer 0 % (0-5); Neutrophil # 3.39 X10^3/uL (2.7-7.7); Neutrophil % 61.8 % (47-70); Platelet Count 300 K/mm3 (150-450); RBC Distribution Width CV 12.2 % (11.6-14.6); RBC Distribution Width SD 45.3 fl (35.1-43.9); Red Blood Count 3.63 M/mm3 (4.2-5.4); White Blood Count 5.5 K/mm3 (4.4-11.0)
[2024-06-21 18:24] LABS: AST(SGOT) 21 U/L (15-37); Alanine Aminotransfer ALT/SGPT 21 U/L (13-56); Albumin, Serum 3.3 g/dL (3.2-5.0); Alkaline Phosphatase 47 U/L (45-117); Anion Gap 7 (5-15); BUN 14 mg/dL (7-18); BUN/Creat Ratio 13.5 RATIO (10-20); Calcium,Total 9.4 mg/dL (8.5-10.1); Chloride 103 mmol/L (98-107); Creatinine, Serum 1.04 mg/dL (0.55-1.02); EST Glomerular Filtration Rate 55 mL/min (>60); Est Glom Filt Rate - Afr Amer 67 mL/min (>60); Globulin 3.4 g/dL (2.2-4.2); Glucose 86 mg/dL (74-106); Potassium 3.8 mmol/L (3.5-5.1); Protein, Total 6.7 g/dL (6.4-8.2); Sodium Level 140 mmol/L (136-145)
== END | disposition home or self-care (01) ==
PROVIDERS: PCP Family Medicine; Visit Provider Internal Medicine Rheumatology
DX: M06.4 Inflammatory polyarthropathy (principal); Z79.899 Other long term (current) drug therapy; R76.8 Other specified abnormal immunological findings in serum; M79.7 Fibromyalgia
CPT/HCPCS: 36415; 80053; 85025

== ENCOUNTER → 2024-06-23 | Outpatient (CLI) | payer MEDICARE, OTHER, SELFPAY ==
--- NOTE | 2024-06-23 13:53 | BI_ITS ---
MAMMOGRAPHY - BILATERAL SCREENING REASON FOR EXAM: Female, 74 years old. Routine annual screening examination. PERTINENT HISTORY: Non-contributory. TECHNIQUE: Digital bilateral breast sarath (3D mammographic acquisition) in the CC and MLO projections. 2-D mediolateral oblique (MLO) and craniocaudad (CC) views of both breasts were obtained. CAD: Full Field Digital Mammography with Computer Added Detection was performed. COMPARISON: Comparison is made with prior study June 09, 2023 and June 02, 2022. FINDINGS: Breast Composition: There are scattered areas of fibroglandular density. There are no dominant masses or suspicious calcifications. Stable small bilateral axillary lymph nodes. No other significant abnormalities are identified. There has been no significant change since the prior study. BI/SCRN MAMM (CAD)W/SARATH BILAT IMPRESSION: Stable bilateral screening mammogram. Yearly follow-up mammogram recommended. (A) ASSESSMENT CATEGORY: BIRADS Category 2: Benign. A letter regarding these results will be sent to the patient by the facility within 30 days. Approximately 10% of breast cancers are not detected by mammography. A normal mammogram should not delay biopsy of a clinically suspicious abnormality. [id number] Electronically Signed: Manfred Aaron MD at 8:11 EST ,
== END | disposition home or self-care (01) ==
LOC: OPBI 13:49
PROVIDERS: PCP Family Medicine; Referring Provider Family Medicine; Visit Provider Family Medicine
DX: Z12.31 Encounter for screening mammogram for malignant neoplasm of breast (principal)
CPT/HCPCS: 77063; 77067

== ENCOUNTER → 2024-06-27 | Outpatient (CLI) | payer MEDICARE, OTHER, SELFPAY ==
[2024-06-27 13:23] LABS: Ferritin 389 ng/mL (8-252); Iron 70 ug/dL (50-170)
== END | disposition home or self-care (01) ==
LOC: BFHLAB 09:57
PROVIDERS: PCP Family Medicine; Referring Provider Family Medicine; Visit Provider Family Medicine
DX: D64.9 Anemia, unspecified (principal)
CPT/HCPCS: 36415; 82728; 83540

== ENCOUNTER 2024-07-13 10:30 | Outpatient (RCR) | payer MEDICARE, OTHER, SELFPAY ==
--- NOTE | 2024-06-14 15:00 | HP.PTEVAL ---
Patient's Visit Information Visit Information Visit Information: YADIRA PEREZ is a 74 year old F referred to Physical Therapy by Dr. Hoang Ugarte MD with a diagnosis of abnormality of gait LBP, spine fusion. Date of Evaluation: 06/14/24 Physical Therapist: Reggie Hawley, DPT, OCS, CSCS Visit Plan Frequency: 2x /Week Duration: 4-6 Weeks Plan: 2x/week x 4-6 weeks for 1. FW weight shift confidence and with trasnfers 2. Teach LE and core strength and mobility ex and progress to I home program. 3. Gait training with LRD 4. Core strength isometric to HEP Pt wishes to recheck with Radha Mcgrath at appropriate time to take over her care, also will be in OT for wrist therapy Subjective Subjective: Was supposed to be here 2 months ago but broke her hand and put off for two months. I need to get legs moving If on legs for a while then they will shake and not funciton properly. This typically happens after 15-20 minutes. had back surgery 17 months ago and this has happened after that. Had pain prior. Fusion by doctor Aung. Seen surgeon and things are fine. Sees Shanel for this condition with legs. Gave her a B12 shot and nerve pill which does not help. Does get pain in legs sometimes but mostly don't work properly. Takes her time to stand up straight at legs, sometimes feet won't move. Uses rollator all the time and has for a couple years. Fell and broke hand months ago due to leg condition and LOB. Has not fallen lately but did a lot prior to consistent use of walker. back pain is good. Sleeps well. No exercises at home, had some after back surgery but not continued. Having chiropractic for neck and some dizzyness. Having OT for wrist. Lives with of 22 years, one story with 2 steps to get in and ramp. Has small steps and uses walker. Basic ADLs dressing , bathroom self, shower walk in and seat and needs help for transfer safety. Not employed Spends day sitting and computer., and things around house. Hobbies: none. 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 Slow weight shift. Mod I. Trasnfers with UE only exitting chair due to lack of FW weight shift and plops back into chair to sit avoiding keeping weight FW. Bed trasnfer I. Walks 4 steps today short adn almost nil SL stance time without AD. Unable to FGA today due to unsteadyness without wh walker. LE AROM WFL., coordination pretty good to reciprocal toe and heel tap , strength hips 4- and knees 4- and ankles 4/5 sensation WNL to gross light touch but obvious neuropathy in gait pattern and diagnosed and effecting her balance and confidence and FW weight shift. reflexes 1/3 patella javier achilles Stand i without UE assist with poor confidence but can do eo adn ec 30 seconds. Balance/Special Test Scores Oswestry Low Back Score: 19 Goals Goal 1:: Tolerate FGa with cane or no AD Goal Time Frame: 4-6 Weeks Goal 2:: I appropriate HEP to limit future problems with balance and strength Goal Time Frame: 4-6 Weeks Goal 3:: Trasnfer out and into chair without UE with good Fw weight shift I. Goal Time Frame: 4-6 Weeks Goal 4:: Pt feel 50% in overall mobility adn balance Goal Time Frame: 4-6 Weeks Goal 5:: Put walker in car and walk around to door I Goal Time Frame: 4-6 Weeks Rehabilitation Potential Physical Therapy Diagnosis: neuroapthy adn weakness limiting confident funciton creating sedentarism and all decreasing her mobility. Rehabilitation Potential: Fair Anticipated Interventions Patient/Client Instruction: Educate patient on: Condition and Risk Factors For the Purpose of:: To improve nutrient delivery to tissue, To improve muscle performance and motor function, To increase tolerance to activity/condition/position, To improve ability of physical actions for home/community/work/leisure, To improve gait and locomotor functions and To improve safety Therapeutic Exercise to Include: Strength training, Balance training and Dynamic Lumbar Stabilization For the Purpose of:: To increase ROM, To improve nutrient delivery to tissue, To increase tolerance to activity/condition/position, To improve ability of physical actions for home/community/work/leisure and To improve gait and locomotor functions Text: Thank you for the opportunity to evaluate your patient. For Medicare and Medicare HMO plans, please review the plan of care and approve it. It will need to be FAXED BACK to us at [phone] for Medicare purposes. For Medicare only, by signing this I certify the plan of care. Please let me know if there are questions or concerns regarding this plan of care. Physician Signature: Date:
--- NOTE | 2024-07-13 12:37 | HP.PTDCSUM ---
Discharge Summary D/C summary: It has been my pleasure to treat YADIRA PEREZ referred by Dr. Hoang Ugarte MD, with the diagnosis of abnormality of gait LBP, spine fusion for a total of 9 visit(s). Discharge Date: 07/13/24 Please see the following information for a summary of their discharge status. Subjective Subjective: PATIENT REPORTS HER LEFT HIP HAS FLARED UP AND IT IS HER L HIP PAIN THAT STOPS HER FROM DOING MORE. SHE REPORTS COMPLIANCE WITH CURRENT HEP WITHOUT PAIN PROVACATION IF SHE DOESN'T DO TOO MUCH. PATIENT HAS CUFF WEIGHTS FOR HEP. SHE REPORTS X-RAYS AT [facility] SHOWED HER HIP WAS BONE ON BONE ABOUT [address] MACE TOLD HER ABOUT 2 WEEKS AGO SHE IS GOING TO HAVE TO HAVE SURGERY ON IT. PATIENT PLANS TO MAKE AN JENNIFER'T WITH [facility] SOON POSSIBLE AND HOPEFULLY HAVE SURGERY WHEN SHE RETURNS FROM [place] IN SEPTEMBER. PATIENT REPORTS SHE HAS NOT DRIVEN FOR AT LEAST 18 MONTHS DUE TO VERTIGO. SHE REPORTS SHE LIKES COMING TO PT BECAUSE IT HELPS HER ATTITUDE BUT HER Pain left LE: Pain Intensity (Out of 10): 4 Overall Improvement % Improvement: 0 Objective Objective/Function: PATIENT WAS SEEN TODAY FOR RE-ASSESSMENT OF PROGRESS TOWARD THE SET PT GOALS AND THE NEED FOR FURTHER PHYSICAL THERAPY VS READINESS FOR DISCHARGE. UPON EXAM TODAY THERE ARE NO SIGNIFICANT IMPROVEMENTS IN STRENGTH, COORDINATION OR BALANCE COMPARED TO INITIAL EVAL AND HER BACK OSWESTRY SCORE IS ACTUALLY 7 POINTS WORSE WHICH CAN I THINK MOSTLY BE ATTRIBUTED TO C/O AN INCREASE IN L HIP PAIN THAT STARTED FOR NO APPARENT REASON (PER PATIENT REPORT). PATIENT IS INDEP WITH HOME INSTRUCTION FOR CONTINUED USE OF WALKER AND HEP TOLERATED. Goals Goal 1:: Tolerate FGa with cane or no AD Goal Progress: Not Met Goal 2:: I appropriate HEP to limit future problems with balance and strength Goal Progress: Goal Met Goal 3:: Trasnfer out and into chair without UE with good Fw weight shift I. Goal Progress: Not Met Goal 4:: Pt feel 50% in overall mobility adn balance Goal Progress: Not Met Goal 5:: Put walker in car and walk around to door I Goal Progress: Not Met Plan Plan: D/C TO HEP. PATIENT AGREEABLE. D/C Information d/c sentence: If there are questions or concerns regarding this patient's physical therapy, please feel free to call me at [phone]. Thank you for the referral of this patient. Sincerely, Radha Mcgrath, PT, Cert MDT Balance/Gait/Functional tests Balance/Special Test Scores Oswestry Low Back Score: 26 Improvement % Improvement: 0
== END 2024-07-13 19:00 | disposition home or self-care (01) ==
LOC: PT 10:30
PROVIDERS: PCP Family Medicine; Referring Provider Psychiatry & Neurology Neurology; Visit Provider Psychiatry & Neurology Neurology
DX: M54.50 Low back pain, unspecified (principal); M43.26 Fusion of spine, lumbar region; R26.9 Unspecified abnormalities of gait and mobility
CPT/HCPCS: 97110; 97162; 97530

== ENCOUNTER 2024-07-27 07:33 | Day surgery (SDC) | payer MEDICARE, OTHER, SELFPAY ==
--- NOTE | 2024-07-26 13:50 | PAT.ANESEVAL ---
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 When Was Last Pacemaker Check QUESTION #4 FULL TEXT: You/Your Family Experience fever (hyperthermia) with Anesthesia Last Oral Intake Last Oral intake: Last Oral Intake NPO since Meds taken in AM with sips of water? Meds patient instructed to take am of surgery PONV PONV - radiology equipment servicer: PONV - radiology equipment servicer Female Yes 07/26/24 10:30 HX of Motion Sickness Yes 07/26/24 10:30 HX of N/V After Surgery No 07/26/24 10:30 Non-Smoker Yes 07/26/24 10:30 Duration of Surgery greater No 07/26/24 10:30 than 60 minutes Number of Risk Factors 3 07/26/24 10:30 PONV Score Moderate Risk 07/26/24 10:30 Height & Weight Height & Weight: Anesthesia: Height & Weight Height 5 ft 7 in 06/28/24 09:43 Respiratory Assessment Respiratory Assessment - radiology equipment servicer: Respiratory Tract Infection Hx - radiology equipment servicer Hx Respiratory Tract Infection No 07/26/24 10:30 STOP Sleep Apnea STOP Sleep Apnea - radiology equipment servicer: STOP Sleep Apnea - radiology equipment servicer Hx Hypertension Yes: CONTROLLED WITH MED 07/26/24 10:30 Hx Sleep Apnea Yes 07/26/24 10:30 CPAP Yes 07/26/24 10:30 BIPAP No 07/26/24 10:30 Do you snore loudly (louder than talking or can be heard Do you often feel tired/ fatigued/ sleepy during daytime? Has anyone observed you stop breathing during sleep? STOP Results Positive 07/26/24 10:30 QUESTION #5 FULL TEXT : Do you snore loudly (louder than talking or can be heard through closed doors)? 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 Specify any problems Hx of Preganancy in last 3 No 07/26/24 10:30 Months Nurse Filling Out Transfusion DSCHRIBER 07/26/24 10:30 & Questions: Date: 07/26/24 07/26/24 10:30 Time: 10:32 07/26/24 10:30 Patient unable to answer at this time (ie. confused, unrespo /Reproduction History /Reproductive History - radiology equipment servicer: /Reproductive Hx- radiology equipment servicer Hx Now No 07/26/24 10:30 Gestational Age (in weeks): EDC: Hx Hx Para Hx Section SAB No 07/26/24 10:30 [facility] Medical History (Updated 07/26/24 @ 10:42 by Rosie Bullard) Rheumatoid arthritis Wears glasses Post-menopausal Walker as ambulation aid Bladder disease Low iron Back pain Migraine headache TIA (transient ischemic attack) Syncope Heartburn CPAP (continuous positive airway pressure) dependence Shortness of breath on exertion History of edema History of Holter monitoring History of echocardiogram History of stress test Fusion of lumbar spine Macrocytic anemia Anisocoria Hypoxia Dysarthria Acute bronchitis, unspecified Acute maxillary sinusitis, unspecified Orthostatic hypotension Depression Anxiety Expressive aphasia Carpal tunnel syndrome, right Stress incontinence in female Osteoporosis Osteoarthritis Thickened endometrium Uterine fibroid Enlarged uterus Vertigo Hypertension Home Medications ?Medication ?Instructions ?Recorded ?Last Taken ?Type ibandronate 150 mg tablet 150 mg PO Q30D [facility] 11/26/15 09/16/22 History calcium 500 mg (as 1 tab PO TID SUPPLEMENT 04/07/22 2 Days Ago History carbonate)-vitamin D3 10 mcg (400 ~10/06/22 unit) tablet methotrexate sodium 2.5 mg tablet 15 mg PO ARIAS RHEUMATOID ARTHRITIS 04/07/22 10/04/22 History potassium chloride 10 mEq 10 meq PO BID SUPPLEMENT 04/07/22 2 Days Ago History tablet,extended release(part/cryst) ~10/06/22 aspirin 81 mg tablet,delayed 81 mg PO DAILY [facility] 10/08/22 2 Days Ago History release (Adult Low Dose Aspirin) ~10/06/22 ferrous sulfate 325 mg (65 mg 325 mg PO DAILY SUPPLEMENT 10/08/22 07/23/24 History iron) tablet acetaminophen 500 mg tablet 1,000 mg (2 x 500 mg) PO Q6H PRN 03/09/23 Unknown Rx pain, mild #1 TAB meclizine 12.5 mg tablet 12.5 mg PO BID PRN dizziness #180 12/14/23 Unknown Rx tabs buspirone 10 mg tablet 10 mg PO BID #180 tabs 04/04/24 Unknown Rx propranolol 10 mg tablet 10 mg PO BID HTN #180 tabs 04/04/24 Unknown Rx prednisone 10 mg tablet 10 mg PO DAILY PRN RA 05/18/24 Unknown History cyanocobalamin (vitamin B-12) 100 mcg IM QMONTH 06/28/24 Unknown History 1,000 mcg/mL injection solution duloxetine 60 mg capsule,delayed 60 mg PO BID DEPRESSION 06/28/24 Unknown History release folic acid 1 mg tablet 2 mg PO QDAY 06/28/24 Unknown History hydroxychloroquine 200 mg tablet 200 mg PO QDAY RHEUMATOID ARTHRITIS 06/28/24 Unknown History (Plaquenil) vibegron 75 mg tablet (Gemtesa) 75 mg PO QDAY 06/28/24 Unknown History Allergy/AdvReac Type Severity Reaction Status Date / Time codeine Allergy Rash Verified 07/26/24 10:26 Family History Sister Lupus Mother CVA (cerebral vascular accident) Heart disease Hypertension Father Heart disease Hypertension Brother Heart disease Sister Diabetes Surgical History (Updated 06/28/24 @ 09:24 by Chante Li) Hx of colonoscopy H/O dilation and curettage History of hernia surgery History of tonsillectomy H/O tubal ligation History of hip surgery Social History adopted: No household members: spouse housing: house number of children: 1 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
[2024-07-27] VITALS (8 sets, daily range): BP systolic 113–147; BP diastolic 67–76; PULSE 54–60; RESP 16; TEMP 36.3–36.5; O2SAT 94–100; BMI 32.7
--- NOTE | 2024-07-27 08:08 | PCM.PRE.AN2 ---
ASA Classification* ASA Classification ASA Classification: 2 Assessment & Plan Anesthesia* Anesthesia Assessment Anesthesia Assessment: Discussed sedation and/or anesthesia options, risks, benefits, and alternatives with patient/parents/legal guardian/POA. Questions invited. The patient/parents/legal guardian/POA seems to understand and agrees to proceed with anesthesia plan. Reviewed the physical assessment, medical history, allergy history and patient home medications list prior to surgery/procedure/anesthetic and documented any changes. Performed airway and anesthesia risk assessments. Anesthesia Type Anesthesia Type: MAC Anesthesia Focused Assessment* Temperature: 97.5 F Pulse Rate: 60 Blood Pressure: 147/76 Respiratory Rate: 16 Pulse Ox: 100 Airway Assessment Mouth opens: >3 cm Mallampati Score: II Focused Labs Anesthesia Preop lab: CBC WBC 5.5 K/mm3 (4.4-11.0) 06/21/24 15:53 RBC 3.63 M/mm3 (4.2-5.4) L 06/21/24 15:53 Hgb 11.8 g/dL (12.0-15.0) L 06/21/24 15:53 Hct 37.0 % (37-47) 06/21/24 15:53 Plt Count 300 K/mm3 (150-450) 06/21/24 15:53 CHEMISTRY Potassium 3.8 mmol/L (3.5-5.1) 06/21/24 15:53 Sodium 140 mmol/L (136-145) 06/21/24 15:53 Magnesium 2.2 mg/dL (1.6-2.6) 02/25/23 05:08 Phosphorus 4.4 mg/dL (2.5-4.9) 02/25/23 05:08 BUN 14 mg/dL (7-18) 06/21/24 15:53 Creatinine 1.04 mg/dL (0.55-1.02) H 06/21/24 15:53 Glucose 86 mg/dL (74-106) 06/21/24 15:53 TSH 2.31 uIU/mL (0.358-3.74) 07/28/22 08:56 COAG PT 15.1 SECONDS (11.7-14.9) H 10/08/22 12:30 Pre-Assessment Diagnosis/Proposed Procedure Planned Operative Procedure(s): CSCOPE OA Anesthesia History 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 When Was Last Pacemaker Check QUESTION #4 FULL TEXT: You/Your Family Experience fever (hyperthermia) with Anesthesia Last Oral Intake Last Oral intake: Last Oral Intake NPO since 04:40 07/27/24 07:50 Meds taken in AM with sips of Yes 07/27/24 07:50 water? Meds patient instructed to propranolol, plaquenil, 07/27/24 07:50 take am of surgery duloxetine PONV PONV - spring fitter helper: PONV - spring fitter helper Female Yes 07/26/24 10:30 HX of Motion Sickness Yes 07/26/24 10:30 HX of N/V After Surgery No 07/26/24 10:30 Non-Smoker Yes 07/26/24 10:30 Duration of Surgery greater No 07/26/24 10:30 than 60 minutes Number of Risk Factors 3 07/26/24 10:30 PONV Score Moderate Risk 07/26/24 10:30 Height & Weight Height & Weight: Anesthesia: Height & Weight Height 5 ft 6 in 07/27/24 07:50 Weight: 92 kg 07/27/24 07:50 Body Mass Index (BMI) 32.7 07/27/24 07:50 Respiratory Assessment Respiratory Assessment - spring fitter helper: Respiratory Tract Infection Hx - spring fitter helper Hx Respiratory Tract Infection No 07/26/24 10:30 STOP Sleep Apnea STOP Sleep Apnea - spring fitter helper: STOP Sleep Apnea - spring fitter helper Hx Hypertension Yes: CONTROLLED WITH MED 07/26/24 10:30 Hx Sleep Apnea Yes 07/26/24 10:30 CPAP Yes 07/26/24 10:30 BIPAP No 07/26/24 10:30 Do you snore loudly (louder than talking or can be heard Do you often feel tired/ fatigued/ sleepy during daytime? Has anyone observed you stop breathing during sleep? STOP Results Positive 07/26/24 10:30 QUESTION #5 FULL TEXT : Do you snore loudly (louder than talking or can be heard through closed doors)? 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 Specify any problems Hx of Preganancy in last 3 No 07/26/24 10:30 Months Nurse Filling Out Transfusion DSCHRIBER 07/26/24 10:30 & Questions: Date: 07/26/24 07/26/24 10:30 Time: 10:32 07/26/24 10:30 Patient unable to answer at this time (ie. confused, unrespo /Reproduction History /Reproductive History - spring fitter helper: /Reproductive Hx- spring fitter helper Hx Now No 07/26/24 10:30 Gestational Age (in weeks): EDC: Hx Hx Para Hx Section SAB No 07/26/24 10:30 [facility] Medical History Rheumatoid arthritis Wears glasses Post-menopausal Walker as ambulation aid Bladder disease Low iron Back pain Migraine headache TIA (transient ischemic attack) Syncope Heartburn CPAP (continuous positive airway pressure) dependence Shortness of breath on exertion History of edema History of Holter monitoring History of echocardiogram History of stress test Fusion of lumbar spine Macrocytic anemia Anisocoria Hypoxia Dysarthria Acute bronchitis, unspecified Acute maxillary sinusitis, unspecified Orthostatic hypotension Depression Anxiety Expressive aphasia Carpal tunnel syndrome, right Stress incontinence in female Osteoporosis Osteoarthritis Thickened endometrium Uterine fibroid Enlarged uterus Vertigo Hypertension Home Medications ?Medication ?Instructions ?Recorded ?Last Taken ?Type ibandronate 150 mg tablet 150 mg PO Q30D [facility] 11/26/15 09/16/22 History calcium 500 mg (as 1 tab PO TID SUPPLEMENT 04/07/22 2 Days Ago History carbonate)-vitamin D3 10 mcg (400 ~10/06/22 unit) tablet methotrexate sodium 2.5 mg tablet 15 mg PO ARIAS RHEUMATOID ARTHRITIS 04/07/22 10/04/22 History potassium chloride 10 mEq 10 meq PO BID SUPPLEMENT 04/07/22 2 Days Ago History tablet,extended release(part/cryst) ~10/06/22 aspirin 81 mg tablet,delayed 81 mg PO DAILY [facility] 10/08/22 2 Days Ago History release (Adult Low Dose Aspirin) ~10/06/22 ferrous sulfate 325 mg (65 mg 325 mg PO DAILY SUPPLEMENT 10/08/22 07/23/24 History iron) tablet acetaminophen 500 mg tablet 1,000 mg (2 x 500 mg) PO Q6H PRN 03/09/23 Unknown Rx pain, mild #1 TAB meclizine 12.5 mg tablet 12.5 mg PO BID PRN dizziness #180 12/14/23 Unknown Rx tabs buspirone 10 mg tablet 10 mg PO BID #180 tabs 04/04/24 07/27/24 Rx propranolol 10 mg tablet 10 mg PO BID HTN #180 tabs 04/04/24 07/27/24 Rx prednisone 10 mg tablet 10 mg PO DAILY PRN RA 05/18/24 Unknown History cyanocobalamin (vitamin B-12) 100 mcg IM QMONTH 06/28/24 Unknown History 1,000 mcg/mL injection solution duloxetine 60 mg capsule,delayed 60 mg PO BID DEPRESSION 06/28/24 07/27/24 History release folic acid 1 mg tablet 2 mg PO QDAY 06/28/24 Unknown History hydroxychloroquine 200 mg tablet 200 mg PO QDAY RHEUMATOID ARTHRITIS 06/28/24 07/27/24 History (Plaquenil) vibegron 75 mg tablet (Gemtesa) 75 mg PO QDAY 06/28/24 07/27/24 History Allergy/AdvReac Type Severity Reaction Status Date / Time codeine Allergy Rash Verified 07/27/24 07:47 Family History Sister Lupus Mother CVA (cerebral vascular accident) Heart disease Hypertension Father Heart disease Hypertension Brother Heart disease Sister Diabetes Surgical History Hx of colonoscopy H/O dilation and curettage History of hernia surgery History of tonsillectomy H/O tubal ligation History of hip surgery Social History adopted: No household members: spouse housing: house number of children: 1 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
--- NOTE | 2024-07-27 08:30 | COLBX_PTH ---
PATIENT: YADIRA PEREZ LOC: EN U#:[id number] AGE/SX: 74/F ROOM: RE07/27/[address]: Dr. Shawn Bates MD : 1950 BED: DIS: 07/27/2024 SPEC #: [id number] RECD: 07/27/24 13:21 STATUS: SURINDER JORGE #: [id number] ZION: 07/27/24 08:[address]: Shawn Bates DEPT: SURGICAL PATHOLOGY RECD BY: Mikala Reynaga ENTERED: 07/27/24 13:51 SP TYPE: COLON BX OTHR DR: Dr. Carl Bourgeois DO Tissues: COLON BIOPSY Procedures: Surgery Specimen Level IV HEADER OPERATION: Colonoscopy, polypectomy PRE-OP DIAGNOSIS: Personal history of colonic polyps TISSUE SUBMITTED: Hepatic flexure polyp MICROSCOPIC DIAGNOSIS Hepatic flexure polyp, polypectomy: Fragments of tubular adenoma. 07/28/2024 MICROSCOPIC DESCRIPTION Slides are reviewed. GROSS DESCRIPTION Received in fixative is one container labeled with the patient's name and designated Hepatic flexure polyp. The specimen consists of multiple irregular fragments of light collins soft tissue that in aggregate measure 0.6 x 0.6 x 0.1 cm. The specimen is totally submitted in one cassette. 07/27/2024 TC:1 CPT:55116
--- NOTE | 2024-07-27 08:58 | HP.PCM_ITS ---
HPI - General General Date of Service: 07/27/24 Chief Complaint: Update surveillance colonoscopy HPI Narrative YADIRA PEREZ, is a 74 F who presents for update surveillance colonoscopy. She reports a history of a colonoscopy somewhere around 10 years ago where polyps were found. She further confirms her preappointment questionnaire that she has not experienced any change in her bowel habits-and particularly denies any notice of blood. She also denies any family history of GI illness to include diverticulitis, inflammatory bowel disease, or colon cancer. Lastly she confirms that her prep was completed successfully and that her output is now clear. [facility]LY [facility] Medical History Rheumatoid arthritis Wears glasses Post-menopausal Walker as ambulation aid Bladder disease Low iron Back pain Migraine headache TIA (transient ischemic attack) Syncope Heartburn CPAP (continuous positive airway pressure) dependence Shortness of breath on exertion History of edema History of Holter monitoring History of echocardiogram History of stress test Fusion of lumbar spine Macrocytic anemia Anisocoria Hypoxia Dysarthria Acute bronchitis, unspecified Acute maxillary sinusitis, unspecified Orthostatic hypotension Depression Anxiety Expressive aphasia Carpal tunnel syndrome, right Stress incontinence in female Osteoporosis Osteoarthritis Thickened endometrium Uterine fibroid Enlarged uterus Vertigo Hypertension Home Medications ?Medication ?Instructions ?Recorded ?Last Taken ?Type ibandronate 150 mg tablet 150 mg PO Q30D [facility] 11/26/15 09/16/22 History calcium 500 mg (as 1 tab PO TID SUPPLEMENT 04/07/22 2 Days Ago History carbonate)-vitamin D3 10 mcg (400 ~10/06/22 unit) tablet methotrexate sodium 2.5 mg tablet 15 mg PO ARIAS RHEUMATOID ARTHRITIS 04/07/22 10/04/22 History potassium chloride 10 mEq 10 meq PO BID SUPPLEMENT 04/07/22 2 Days Ago History tablet,extended release(part/cryst) ~10/06/22 aspirin 81 mg tablet,delayed 81 mg PO DAILY HEART HEALTH 10/08/22 2 Days Ago History release (Adult Low Dose Aspirin) ~10/06/22 ferrous sulfate 325 mg (65 mg 325 mg PO DAILY SUPPLEMENT 10/08/22 07/23/24 History iron) tablet acetaminophen 500 mg tablet 1,000 mg (2 x 500 mg) PO Q6H PRN 03/09/23 Unknown Rx pain, mild #1 TAB meclizine 12.5 mg tablet 12.5 mg PO BID PRN dizziness #180 12/14/23 Unknown Rx tabs buspirone 10 mg tablet 10 mg PO BID #180 tabs 04/04/24 07/27/24 Rx propranolol 10 mg tablet 10 mg PO BID HTN #180 tabs 04/04/24 07/27/24 Rx prednisone 10 mg tablet 10 mg PO DAILY PRN RA 05/18/24 Unknown History cyanocobalamin (vitamin B-12) 100 mcg IM QMONTH 06/28/24 Unknown History 1,000 mcg/mL injection solution duloxetine 60 mg capsule,delayed 60 mg PO BID DEPRESSION 06/28/24 07/27/24 History release folic acid 1 mg tablet 2 mg PO QDAY 06/28/24 Unknown History hydroxychloroquine 200 mg tablet 200 mg PO QDAY RHEUMATOID ARTHRITIS 06/28/24 07/27/24 History (Plaquenil) vibegron 75 mg tablet (Gemtesa) 75 mg PO QDAY 06/28/24 07/27/24 History Allergy/AdvReac Type Severity Reaction Status Date / Time codeine Allergy Rash Verified 07/27/24 07:47 Family History Sister Lupus Mother CVA (cerebral vascular accident) Heart disease Hypertension Father Heart disease Hypertension Brother Heart disease Sister Diabetes Surgical History Hx of colonoscopy H/O dilation and curettage History of hernia surgery History of tonsillectomy H/O tubal ligation History of hip surgery Social History adopted: No household members: spouse housing: house number of children: 1 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 status: 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 pets and animals: Yes Smoking Status: Never smoker second hand exposure: No alcohol intake: never substance use type: does not use seatbelt use: always do you feel safe at home: Yes additional social history: - Riki Past Medical/Surgical History Planned Operation Planned Operative Procedure(s): CSCOPE OA S.O.S: No Previous Hospitalizations/Surgeries HX Hospitalizations: No HX of Surgeries: TUBAL LIGATION TONSILLECTOMY RIGHT INGUINAL HERNIA REPAIR COLONOSCOPY Any Problems With Anesthesia: No You/Your Family Experience Fever (Hyperthermia) With Anes: No Cholinesterase deficiency: No Cardiovascular Hx Chest Pain within Last 2 months: No Hx of Irregular Heartbeat and/or Afib: No Hx Heart Attack: No Hx Congestive Heart Failure: No Hx Rheumatic Fever: No Hx Hypertension: Yes (CONTROLLED WITH MED) Hx Internal Defibrillator: No Hx Pacemaker: No Hx Cardiac Catheterization: No Hx Cardiac Surgery/Stents/Etc.: No Hx Stress Test: No Hx Pain in Legs when Walking/Leg Cramps: No Respiratory Chronic Cough: No HX of Shortness of Breath: Yes (WITH EXERTION) Hoarseness: No Hx Chronic Obstructive Pulmonary Disease (COPD): No Hx Asthma: No Hx Emphysema: No Hx Sleep Apnea: Yes CPAP: Yes BIPAP: No Hx Respiratory Tract Infection/Cold (presently): No Result (for STOP score): Positive Hx Smoking: No Smoking Status: Never smoker Gastrointestinal Hx Gastrointestinal Disorders: No Hx Gastrointestinal Bleed: No Hx Ulcer: No Hx Hiatal Hernia: No Difficulty Chewing/Swallowing: No Special diet followed at home: No Hx Unplanned Weight Loss of 20#: No HX Unplanned Weight Gain of 20#: No Neurological Hx Seizures: No HX Syncope/Blackout Spells/Unconsciousness: No Hx Transient Ischemic Attacks (TIA): Yes Hx Multiple Sclerosis: No Hx Parkinson's Disease: No Hx Head/Neck Injury: No Hx Headaches: Yes (MIGRAINE HX) Hx Back Injury/Pain: No Recent Onset of Speech Difficulty: No Restless Legs: No Does patient have nerve stimulator: No Blood Disorder Hx Leukemia: No Bleeding Tendencies: No Hx Deep Vein Thrombosis: No Hx High Cholesterol: No Blood Transmitted Disease: No Hx Hepatitis: No Hx Cirrhosis: No Hx Anemia: Yes (ON IRON SUPPLEMENT) Hx Blood Disorders: No Reproduction : No Is Patient Lactating: No Hx Hysterectomy: No Hx Tubal Ligation: Yes Are You Post Menopause: Yes Genitourinary Hx Renal Disease: No Hx Dialysis: No Musculoskeletal Hx Arthritis: Yes (OA) Hx Rheumatoid Arthritis: No Hx Gout: No Recent Onset of an Orthopedic Problem: Yes (RIGHT HIP) Endocrine Hx Diabetes: No Thyroid Disease: No Hx Steroid Therapy: Yes (CORTISONE INJECTION 11/27/15) Psycho/Social Hx Substance Use: No Hx Alcohol Use: No Hx Anxiety: No Hx Depression: Yes (ON MEDS) Mental Illness: No Hx Dementia: No Miscellaneous Hx Cancer: Yes (SKIN CANCER) Recent Exposure to Contagious Disease: No Hx of C-Diff: No Any Loose Teeth: No Allergies codeine Allergy (Verified 07/27/24 07:47) Rash Discharge Is Pt Admitted From a Shelter, or a [place] [facility]: No After D/C, Where Do you Plan to Go: Return Home From the PAT History Number of Risk Factors: 4 Vital Signs Vital Signs Vital Signs: 07/27/24 07:50 07/27/24 07:50 07/27/24 08:09 Temperature 97.5 F L 97.5 F L Temperature Source Temporal Pulse Rate 60 60 Respiratory Rate 16 16 Respiratory Pattern Normal Blood Pressure 147/76 H 147/76 H Blood Pressure Mean 99 Blood Pressure Source Monitor Blood Pressure Position Sitting Blood Pressure Location Left Arm Pulse Ox 100 100 Oxygen Delivery Method Room Air Weight Weight: 202 lb 13.204 oz Body Mass Index (BMI) 32.7 Physical Exam Const alert, oriented x3, no apparent distress and average body habitus Resp normal respiratory effort GI GI Narrative: No scars, no visible herniation, nondistended, soft, nontender to palpation x 4 quadrants Assessment & Plan Assessment/Plan (1) Personal history of colonic polyps: PLAN: Patient is a 74-year-old female who arrives for surveillance colonoscopy given a history of colonic polyps at a previous colonoscopy which she estimates took place around 10 years ago. She denies any present issues with her GI habits. She confirms that she completed the prep for today's procedure. Will plan to proceed to the endoscopy suite for colonoscopy as scheduled. Surgery Risks - Colonoscopy Risks Include but are not Limited To: Risks include but are not limited to: Bleeding, perforation requiring further surgery, inability to complete colonoscopy requiring barium enema.
--- NOTE | 2024-07-27 10:40 | PCM.POST.ANE ---
Anesthesia: Postop Eval I Current Vital Signs Temperature: 97.3 F Pulse Rate: 57 Blood Pressure: 113/73 Respiratory Rate: 16 Pulse Ox: 100 Oxygen Delivery Method: Room Air Assessment Airway patent: Yes Spontaneous unlabored respirations: Yes Mental status: Awake and Calm nausea: No Vomiting: No Anesthesia Complication: No Fluid Hydration Crystalloid volume administer (ml): 150 Total IV fluid infused: 150 Progress Note Anesthesia document: Postop Eval 1 completed: Yes
--- NOTE | 2024-07-27 10:42 | OP.COLON_ITS ---
Patient Name: Shital Rowell Procedure Date: 07/27/2024 9:10 AM Date of : 1950 Age: 74 Procedure: Colonoscopy Indications: High risk colon cancer surveillance: Personal history of colonic polyps Providers: Shawn Bates MD Referring MD: Carl Bourgeois Medicines: See the Anesthesia note for documentation of the administered medications Patient Profile: Last Colonoscopy: 10 years ago. Complications: No immediate complications. Estimated blood loss: None. Procedure: Pre-Anesthesia Assessment: - The heart rate, respiratory rate, oxygen saturations, blood pressure, adequacy of pulmonary ventilation, and response to care were monitored throughout the procedure. - The heart rate, respiratory rate, oxygen saturations, blood pressure, adequacy of pulmonary ventilation, and response to care were monitored throughout the procedure. After I obtained informed consent, the scope was passed under direct vision. Throughout the procedure, the patient's blood pressure, pulse, and oxygen saturations were monitored continuously. The colonoscope was introduced through the anus and advanced to the cecum, identified by palpation. The colonoscopy was technically difficult and complex due to multiple diverticula in the colon, poor bowel prep with stool present, poor endoscopic visualization, a redundant colon and significant looping. Successful completion of the procedure was aided by changing the patient to a supine position, withdrawing and reinserting the scope, straightening and shortening the scope to obtain bowel loop reduction, using scope torsion, applying abdominal pressure and lavage. The patient tolerated the procedure well. Scope In: 9:11:43 AM Scope Out: 10:29:33 AM Total Procedure Duration Time 1 hour 17 minutes 50 seconds Findings: Patulous tone, No biopsies or other specimens were collected for this exam. Multiple small and large-mouthed diverticula were found in the sigmoid colon, descending colon, transverse colon and ascending colon. No biopsies or other specimens were collected for this exam. The cecum was moderately redundant. Advancing the scope required changing the patient's position. A 10 mm, non-bleeding polyp was found in the hepatic flexure. The polyp was semi-pedunculated. The polyp was removed with a hot snare. Resection and retrieval were complete. Estimated blood loss: none. The sigmoid colon and ascending colon were moderately tortuous. The retroflexed view of the distal rectum and anal verge was normal and showed no anal or rectal abnormalities. No biopsies or other specimens were collected for this exam. Impression: - Diverticulosis in the sigmoid colon, in the descending colon, in the transverse colon and in the ascending colon. No specimens collected. - Redundant colon. - One 10 mm, non-bleeding polyp at the hepatic flexure, removed with a hot snare. Resected and retrieved. - Tortuous colon. - The distal rectum and anal verge are normal on retroflexion view. Recommendation: - Discharge patient to home (via wheelchair). - High fiber diet today. - No aspirin, ibuprofen, naproxen, or other non-steroidal anti-inflammatory drugs for 2 days after biopsy. - Await pathology results. - Repeat colonoscopy in 1 year because the bowel preparation was poor. - Telephone my office for pathology results in 1 week. Procedure Code(s): --- Professional --- 44638, Colonoscopy, flexible; with removal of tumor(s), polyp(s), or other lesion(s) by snare technique Diagnosis Code(s): --- Professional --- Q43.8, Other specified congenital malformations of intestine Z86.010, Personal history of colonic polyps D12.3, Benign neoplasm of transverse colon (hepatic flexure or splenic flexure) K57.30, Diverticulosis of large intestine without perforation or abscess without bleeding CPT copyright 2021 [employer]. All rights reserved. The codes documented in this report are preliminary and upon jacket changer review may be revised to meet current compliance requirements. Shawn Bates MD 07/27/2024 10:42:00 AM This report has been signed electronically. Number of Addenda: 0 Note Initiated On: 07/27/2024 9:10 AM
--- NOTE | 2024-07-27 10:43 | OP.CCLET_ITS ---
07/27/2024 Carl Bourgeois [address] [place] [address] Re : Colonoscopy procedure for Shital Rowell Dear Dr. Bourgeois This procedure was performed on July. My impressions and recommendations are as follows: Impressions : - Diverticulosis in the sigmoid colon, in the descending colon, in the transverse colon and in the ascending colon. No specimens collected. - Redundant colon. - One 10 mm, non-bleeding polyp at the hepatic flexure, removed with a hot snare. Resected and retrieved. - Tortuous colon. - The distal rectum and anal verge are normal on retroflexion view. Recommendations : - Discharge patient to home (via wheelchair). - High fiber diet today. - No aspirin, ibuprofen, naproxen, or other non-steroidal anti-inflammatory drugs for 2 days after biopsy. - Await pathology results. - Repeat colonoscopy in 1 year because the bowel preparation was poor. - Telephone my office for pathology results in 1 week. My findings are described in the full procedure note, which is enclosed. If I can be of further assistance, please feel free to contact me at Doctor phone number(s): , Work: . Sincerely, Shawn Bates MD 07/27/2024 10:42:00 AM This report has been signed electronically.
--- NOTE | 2024-07-27 10:48 | PCM.POSTANE2 ---
Anesthesia Postop Eval I Sum Postop Eval Completion status Anesthesia document: Postop Eval 1 completed: Yes Anesthesia Postop Eval I Summary Anesthesia Postop Eval I Summary: Anesthesia Postop Eval I: Assessment Summary Airway patent Yes 07/27/24 10:41 [email or web address] Spontaneous unlabored Yes 07/27/24 10:41 [email or web address] respirations Mental status Awake,Calm 07/27/24 10:41 [email or web address] nausea No 07/27/24 10:41 [email or web address] Vomiting No 07/27/24 10:41 [email or web address] Anesthesia Postop Eval I: Fluid Summary Crystalloid volume administer 150 07/27/24 10:41 [email or web address] (ml) Colloids volume administered ( ml) Blood Product volume administered (ml) Total IV fluid infused 150 07/27/24 10:41 [email or web address] Anesthesia Postop Eval I: Summary Notes Anesthesia Complication No 07/27/24 10:41 [email or web address] Anesthesia Complication Comment: Post-operative progress note Anesthesia: Postop Eval II Evaluation Mental status: Awake Pain Level: 0 nausea: No Vomiting: No
== END 2024-07-27 11:53 | disposition home or self-care (01) ==
LOC: EN 07:36 → AC 07:37
PROVIDERS: PCP Family Medicine; Referring Provider Family Medicine; Visit Provider Surgery
PROC: 0DJD8ZZ Inspection of Lower Intestinal Tract, Via Natural or Artificial Opening Endoscopic (ICD-10-PCS; CPT 45378; principal; 2024-07-27 08:25)
DX: Z12.11 Encounter for screening for malignant neoplasm of colon (principal); K63.5 Polyp of colon; I10 Essential (primary) hypertension; D53.9 Nutritional anemia, unspecified; Z86.0100 Personal history of colon polyps, unspecified; D12.3 Benign neoplasm of transverse colon; K57.30 Diverticulosis of large intestine without perforation or abscess without bleeding; Z99.89 Dependence on other enabling machines and devices; Z86.73 Personal history of transient ischemic attack (TIA), and cerebral infarction without residual deficits; Z98.51 Tubal ligation status
CPT/HCPCS: 45385; 88305; A4216; J2405

== ENCOUNTER → 2024-07-31 | Outpatient (CLI) | payer MEDICARE, OTHER, SELFPAY ==
--- NOTE | 2024-07-31 12:33 | RAD_ITS ---
STUDY: X-RAY - PELVIS AND LEFT HIP REASON FOR EXAM: Female, 74 years old. Left hip pain. TECHNIQUE: 3 views of the pelvis and left hip. COMPARISON: None. FINDINGS: There is a non-specific bowel gas pattern. Normal visualized soft tissue structures. Normal bilateral iliac wings, sacroiliac joints and visualized sacrum. Normal bilateral superior and inferior pubic rami. Normal pubic symphysis. Normal bilateral ischial tuberosities. There are mild osteoarthritic changes of the femoral head with marginal osteophyte formation. There is moderate osteoarthritic spur formation and subcortical cyst formation of the left acetabular rim. There is mild to moderate articular joint space narrowing of the left hip. There is no demonstrated acute fracture. There is a right hip arthroplasty in place, with no periprosthetic fracture. There is a partially imaged bilateral fusion hardware at L3-4. RAD/HIP, UNI W/ Pelvis 2-3 Views IMPRESSION: Mild to moderate degenerative arthrosis of the left hip joint. Right hip arthroplasty, with no periprosthetic fracture. Electronically Signed: Veto Sullivan MD at 16:17 EST ,
== END | disposition home or self-care (01) ==
LOC: MTRAD 12:33
PROVIDERS: PCP Family Medicine; Referring Provider Psychiatry & Neurology Neurology; Visit Provider Psychiatry & Neurology Neurology
DX: M25.552 Pain in left hip (principal)

== ENCOUNTER → 2024-08-09 | Outpatient (CLI) | payer MEDICARE, OTHER, SELFPAY ==
--- NOTE | 2024-08-09 10:02 | BD_ITS ---
STUDY: DUAL ENERGY X-RAY ABSORPTIOMETRY / DXA REASON FOR EXAM: Female, 74 years old. 733.00OsteoporosisBONE DENSITY REASON FOR EXAM TECHNIQUE: Bone Mineral Density (BMD) measurements of lumbar spine and left hip were obtained. COMPARISON: Comparison is made with prior study dated March 19, 2020. FINDINGS: Lumbar Spine (L1-L4): g/cm2 (1.168) / T-score (1.4) / Z-score (3.7) Findings are suggestive of normal bone density with a low fracture risk. Left Femur Total: g/cm2 (0.878) / T-score (-0.5) / Z-score (1.2) Left Femoral Neck: g/cm2 (0.733) / T-score (-1.0) / Z-score (1.0) The T-Scores on the most recent prior examination were: Lumbar Spine (L1-L4): There has been improvement of bone density since the previous examination. Left Femur Total: which represents an improvement of 4.5%. BD/Dexa Bone Density Study IMPRESSION: The patient is considered normal as outlined below according to World Donovan Organization (WHO) criteria with a low fracture risk. There has been improvement of bone density since the previous examination. Reference Information: The T-score is the number of standard deviations above or below the standard which is normal for young adults at their peak bone mineral density. The World Health Organization (WHO) interprets the T-scores as follows: Above -1 Normal bone density Between -1 and -2.5 Osteopenia Equal to / or below -2.5 Osteoporosis As a practical clinical guideline, osteopenia may be graded as follows: Mild -1 through -1.5 Moderate -1.6 through -2.0 Severe -2.1 through -2.4 The Z-score is the number of standard deviations above or below age-matched controls. A Z-score of less than -1.5 would be considered abnormal. References: 1. NIH Osteoporosis and Related Bone Diseases www osteo.org 2. International Society for Clinical Densitometry www iscd.org 3. National Osteoporosis Foundation www nof.org Electronically Signed: Manfred Aaron MD at 9:51 EST ,
== END | disposition home or self-care (01) ==
LOC: OPBD 09:55
PROVIDERS: PCP Family Medicine; Referring Provider Family Medicine; Visit Provider Family Medicine
DX: M81.0 Age-related osteoporosis without current pathological fracture (principal)
CPT/HCPCS: 77080

== ENCOUNTER 2024-09-20 10:30 | Outpatient (RCR) | payer MEDICARE, OTHER, SELFPAY ==
--- NOTE | 2024-06-06 09:38 | HP.OTEVAL_ITS ---
Patient's Visit Information Visit Information Visit Information: YADIRA PEREZ is a 74 year old F, referred to Occupational Therapy by Dr. Derik Pratt DO, with a diagnosis of right 4th metacarpal nondisplaced fx. Date of Evaluation: 06/06/24 Occupational Therapist: TAYLOR Antonio/Nya, CHT Subjective Subjective: This 74 year arrives for OT eval with dx of right nondisplaced fx of shaft of 4th metacarpal bone. Pt states she suffered fall on 04/09/24 and went to ER. Did see Dr. Pratt on 04/19/24 who placed her in brace. Dr. Pratt requested OT eval and treat on 05/26/24. pt is right handed pt states she is having trouble with walking and is to start her PT. due to limited ROM- swelling and pain pt is unable and requires assistance with ADL and IADls. 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 Pain right hand: Current Pain Intensity: 1 Pain Intensity Range: 4 and 6 ROM MP: right LF 0/40, RF 0/40 MF 0/40 IF 0/70 left IF 0/80 MF 0/85 RF 0/85 LF 0/85 PIP: right LF 0/50 RF 0/55 MF 0/60 IF 0/90 left IF 0/105 MF 0/100 RF 0/95 LF0/90 DIP: right LF 0/35 RF 0/35 MF0/ 55 IF 0/60 left IF 0/60 MF 0/60 RF 0/60 LF 0/50 ROM Comments: pt demo limited right composite fist Strength Drafter Plumbing: right 10# left 65# Lateral Pinch: right 10# left 16# Tripod Pinch: right 7# left 16# Edema PIP: right LF 5.5 RF 6.5 left RF 5.5 LF 5 Sensation Thumb: right 2.83 left 2.83 interpretation Normal sensation Index: right 2.83 left 2.83 interpretation Normal sensation Middle: right 2.83 left 2.83 interpretation Normal sensation Ring: right 2.83 left 2.83 interpretation Normal sensation Little: right 2.83 left 2.83 interpretation Normal sensation Quick DASH-Disab of Arm,Shoulder& Hand Quick DASH Score: 75.0000 Goals Goal:ROM equal to unaffected hand: Yes Goal:Drafter Plumbing/Pinch strength at least 75% of unaffected hand: Yes Goal:No pain with affected hand use: Yes Goal:PIP Circumferences equal to unaffected hand: Yes Goal:Full use of affected hand in daily activities including work: Yes Rehabilitation General Assessment: pt arrives to session 8 weeks and 3 days from DOI. pt demo with limited ROM, edema and weakness limiting her functional use of her dominate hand for ADLs and IADls. Pt would benefit from skilled OT services 2-3 x week for 6-8 weeks to return pt to a PLOF. Today therapist ed. pt on PROM /AROM and contrast bath for edema- ed. pt on light use for daily tasks as washing dished and getting dressed. pt demo understanding and agree to POC. Rehabilitation Potential: Good Anticipated Interventions Anticipated Interventions: A/AAROM/PROM, Strengthening, Modalities, Orthoses, Joint Protection/Energy Conservation, Ergonomic Education, Education re Diagnosis and Home Program Visit Plan Frequency: 2-3x /Week Duration: 2 Months TEXT: Thank you for the opportunity to evaluate your patient. For Medicare and Medicare HMO plans, please review the plan of care and approve it. It will need to be FAXED BACK to us at [phone] for Medicare purposes. Please let me know if there are questions or concerns regarding this plan of care. Physician Signature: Date:
--- NOTE | 2024-07-20 11:24 | HP.OTREVAL ---
Re-Evaluation Intro: Dr. Derik Pratt, DO, It has been my pleasure to treat YADIRA PEREZ over the last 10 visits for right 4th metacarpal nondisplaced fx. Please see the progress note below for an update on the occupational therapy plan of care! Subjective Subjective: Pt would like to continue therapy - but does not have more scheduled. Having hip replacement- and going to [place] in August. 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 slip provided to front desk manager to allow pt to schedule 1x a week for 3 more weeks to continue to work on strengthening pain management as well as return to functional use of hand Goal: Social Insurance Specialist/Pinch strength at least 75% of unaffected hand: R Social Insurance Specialist: 30#, L Social Insurance Specialist: 45# R Pincer: 2#, L Pincer: 6# R Tripod: 8#, L Tripod: 11# R Lateral: 5# , L Lateral: 10# Goal: No pain with affected hand use: Pain in 2-3 range Goal: PIP Circumferences equal to unaffected hand: R LF PIP: 5.5 cm L LF PIP: 5.25 cm Goal: Full use of affected hand in daily activities including work: -Difficulty- cutting food, writing Goal: ROM equal to unaffected hand: PROM after therapy: MP: right LF 0/85, RF 0/85 MF 0/90 IF 0/95 PIP: right LF 0/87 RF 0/95 MF 0/95 IF 0/100 DIP: right LF 0/50 RF 0/45 MF 0/65 IF 0/65 Wrist: 75/85 (gets more if ulnar deviates) Plan Plan Frequency: 1x/Week Duration: 3 Weeks Visits in this POC: (Insurance Limit- $2330) 2 months (2-3x week) Plan: 1x a week for 3 weeks Goals Goals Patient Goals: Use Hand/Wrist/Arm Normally Again and Resume Former Household Responsibilities (Cooking,Cleaning,Yard, etc.) Goal:ROM equal to unaffected hand: Yes Goal:Social Insurance Specialist/Pinch strength at least 75% of unaffected hand: Yes Goal:No pain with affected hand use: Yes Goal:PIP Circumferences equal to unaffected hand: Yes Goal:Full use of affected hand in daily activities including work: Yes Anticipated Interventions Anticipated Interventions Anticipated Interventions: A/AAROM/PROM, Strengthening, Modalities, Orthoses, Joint Protection/Energy Conservation, Ergonomic Education, Education re Diagnosis and Home Program Re-Evaluation Ending Re-evaluation ending: Please do not hesitate to contact me at [phone] by phone or if you have questions or concerns regarding this new plan of care! Sincerely, Kerry Johnson
--- NOTE | 2024-08-10 11:47 | HP.OTREVAL ---
Re-Evaluation Intro: Dr. Derik Pratt, DO, It has been my pleasure to treat YADIRA PEREZ over the last 3 visits for right 4th metacarpal nondisplaced fx. Please see the progress note below for an update on the occupational therapy plan of care! Subjective Subjective: pt arrives this date stating hand is going numb. this is pts last scheduled visit-- measurements complete and update pof pt POC for extension to address strengthening to decrease dropping of tiems and use of hand functionally. Objective Objective/Function: completion of update this date to reflect pt current measurements for strength-- today was pt last scheduled visit. OT consults with pt as well as SHAYY regaridng extension at this time of 1x a week for 3 weeks with heavy focus on chief radiologic technologist as well as pinch strengthening for improved functional use of R hand --- provided pt with ed on exercises to perform at home to assure gains made in next few weeks. R hand chief radiologic technologist 25# L hand chief radiologic technologist 40# pt is 1.5 cm RF to palm pts LF does cross over RF when coming into fist L lateral pinch 8# R lateral pinch 10# L tripod pinch 2# R tripod pinch 8# Plan Plan Frequency: 1x/Week Duration: 3 Weeks Visits in this POC: (Insurance Limit- $2330) 2 months (2-3x week) Plan: 1x a week for 3 weeks STRENGTHENING stretch ORL ligament of RF DIP Goals Goals Patient Goals: Use Hand/Wrist/Arm Normally Again and Resume Former Household Responsibilities (Cooking,Cleaning,Yard, etc.) Goal:ROM equal to unaffected hand: Yes Goal Progress: Progressing Goal:Small Battery Plate Assembler/Pinch strength at least 75% of unaffected hand: Yes Goal Progress: Progressing Goal:No pain with affected hand use: Yes Goal Progress: Progressing Goal:PIP Circumferences equal to unaffected hand: Yes Goal:Full use of affected hand in daily activities including work: Yes Goal Progress: Progressing Anticipated Interventions Anticipated Interventions Anticipated Interventions: A/AAROM/PROM, Strengthening, Modalities, Orthoses, Joint Protection/Energy Conservation, Ergonomic Education, Education re Diagnosis and Home Program Re-Evaluation Ending Re-evaluation ending: Please do not hesitate to contact me at [phone] by phone or if you have questions or concerns regarding this new plan of care! Sincerely, Kerry Johnson
--- NOTE | 2024-09-20 11:01 | HP.OT.NRP ---
Patient Information Patient Information: YADIRA PEREZ was seen in my office for initial evaluation on 06/06/24. The following Plan of Care was established for this patient: POC Established Initial Frequency: 1x/Week Initial Duration: 3 Weeks Plan: 1x a week for 3 weeks STRENGTHENING stretch ORL ligament of RF DIP Anticipated Interventions Anticipated Interventions: A/AAROM/PROM, Strengthening, Modalities, Orthoses, Joint Protection/Energy Conservation, Ergonomic Education, Education re Diagnosis and Home Program Last Seen Last Seen: This patient was last seen in our office 09/20/24. Pertinent comments regarding their Occupational therapy will appear below: This 74 year old female seen by OT with dx of R hand MCP fx. Pt seen throughout OT working toward improved ROM as well as strength decreased pain as well as tingling. pt has progressed in POC and ed provided on exercises and activities to perform at home. pt to complete on own at home for carryover at this time discharge from OT services pt in agreeance. At this point I will be discontinuing this patient from occupational therapy. I would be happy to see this patient again in the future if found appropriate by the physician. Thank you! Kerry Johnson
--- NOTE | 2024-09-20 11:03 | HP.OTDCSUM_ITS ---
Discharge Summary D/C Summary: It has been my pleasure to treat YADIRA PEREZ under orders from Dr. Derik Pratt DO, for the diagnosis of right 4th metacarpal nondisplaced fx for a total of 6 visit(s). Please see the following information for a summary of their discharge status. Overall Improvement % Improvement: 75 Objective Objective/Function: R hand 30# L hand 50# R lateral pinch 5# R tripod pinch 3# unable to make full composite fist of R hand pt is approx 1 cm from palm of hand D4 semmes kimber monofilament 2.83 R hand all digits Goals Patient Goals: Use Hand/Wrist/Arm Normally Again and Resume Former Household Responsibilities (Cooking,Cleaning,Yard, etc.) Goal:ROM equal to unaffected hand: Yes Goal Progress: not met Goal:Button Breaker/Pinch strength at least 75% of unaffected hand: Yes Goal Progress: met Goal:No pain with affected hand use: Yes Goal Progress: not met Goal:PIP Circumferences equal to unaffected hand: Yes Goal Progress: met Goal:Full use of affected hand in daily activities including work: Yes Goal Progress: not met Plan Plan: 1x a week for 3 weeks STRENGTHENING stretch ORL ligament of RF DIP D/C Information Discharge Comments: This 74 year old female seen by OT with dx of R hand MCP fx. Pt seen throughout OT working toward improved ROM as well as strength decreased pain as well as tingling. pt has progressed in POC and ed provided on exercises and activities to perform at home. pt to complete on own at home for carryover at this time discharge from OT services pt in agreeance. d/c sentence: If there are questions or concerns regarding this patient's occupational therapy, please fell free to call me at [phone]. Thank you for the referral of this patient. Sincerely, Kerry Johnson
== END 2024-09-20 19:00 | disposition home or self-care (01) ==
LOC: OT 10:30
PROVIDERS: PCP Family Medicine; Referring Provider Orthopaedic Surgery; Visit Provider Orthopaedic Surgery
DX: S62.354D Nondisplaced fracture of shaft of fourth metacarpal bone, right hand, subsequent encounter for fracture with routine healing (principal)
CPT/HCPCS: 97110; 97166; 97530

== ENCOUNTER → 2024-09-27 | Outpatient (CLI) | payer MEDICARE, OTHER, SELFPAY ==
[2024-09-27 12:20] LABS: Absolute Lymphocyte Count 0.92 X10^3/uL (0.83-4.51); Absolute Neutrophil Count 3.3 X10^3/uL (2.0-7.7); Basophil# 0.04 X10^3/uL; Basophil% 0.8 % (0-1); Eosinophil# 0.13 X10^3/uL; Eosinophils% 2.6 % (0-5); Hematocrit 37.5 % (37-47); Lymphocyte # 0.92 X10^3/ul (0.83-4.51); Lymphocyte % 18.7 % (19-41); Mean Corpuscular Hgb 33.5 pg (27.0-32.0); Mean Corpuscular Volume 104.7 fL (81-99); Mean Platelet Vol. 10.5 fl (6.2-12.0); Monocyte# 0.55 X10^3/uL; Monocyte% 11.2 % (0-10); NRBC Flagged by Analyzer 0 % (0-5); Neutrophil # 3.25 X10^3/uL (2.7-7.7); Neutrophil % 66.3 % (47-70); Platelet Count 299 K/mm3 (150-450); RBC Distribution Width SD 49.4 fl (35.1-43.9); Red Blood Count 3.58 M/mm3 (4.2-5.4); White Blood Count 4.9 K/mm3 (4.4-11.0)
[2024-09-27 12:46] LABS: ALB/GLOB Ratio 1.5 RATIO (0.9-2.4); AST(SGOT) 22 U/L (<=31); Alanine Aminotransfer ALT/SGPT 13 U/L (<=34); Albumin, Serum 3.8 g/dL (3.4-4.8); Alkaline Phosphatase 57 U/L (35-104); Anion Gap 9 (5-15); BUN 12 mg/dL (4-19); BUN/Creat Ratio 12.7 RATIO (10-20); Calcium,Total 9.2 mg/dL (7.6-11.0); Carbon Dioxide 27.7 mmol/L (21.0-32.0); Chloride 107 mmol/L (98-108); Creatinine, Serum 0.97 mg/dL (0.70-1.20); EST Glomerular Filtration Rate 61 (>60); Globulin 2.5 g/dL (2.2-4.2); Glucose 93 mg/dL (70-99); Potassium 4.1 mmol/L (3.3-5.1); Protein, Total 6.2 g/dL (5.9-8.4); Sodium Level 143 mmol/L (133-145); Total Bilirubin 0.25 mg/dL (0.00-1.30)
== END | disposition home or self-care (01) ==
LOC: MTLAB 11:08
PROVIDERS: PCP Family Medicine; Referring Provider Internal Medicine Rheumatology; Visit Provider Internal Medicine Rheumatology
DX: M06.4 Inflammatory polyarthropathy (principal); Z79.899 Other long term (current) drug therapy; R76.8 Other specified abnormal immunological findings in serum; M79.7 Fibromyalgia
CPT/HCPCS: 36415; 80053; 85025

== ENCOUNTER → 2024-11-14 | Outpatient (CLI) | payer MEDICARE, OTHER, SELFPAY ==
--- NOTE | 2024-11-14 13:39 | RAD_ITS ---
PROCEDURE: L/S SPINE MIN 4 VIEWS 11/14/2024 REASON FOR EXAM: BACK PAIN, FALL TECHNIQUE: Four views of the lumbar spine FINDINGS: Vertebrae: No acute fracture. Discs: Disc space heights are preserved. Alignment: Status post transpedicular fixation at L4/L5 with 5 mm of anterolisthesis of L4 on L5. Mild levoscoliosis centered at L3. Other: Facet hypertrophy. RAD/L/S Spine Min 4 Views IMPRESSION: Status post transpedicular fixation at L4/L5 with 5 mm of anterolisthesis of L4 on L5. Mild levoscoliosis with degenerative disc disease. Reading Location: [id number]
[2024-11-21 14:08] LABS: ACHR Recep AB, Blocking 25 % (0-25); Acetylcholine Receptor Binding < 0.07 nmol/L (0.00-0.24)
[2024-11-22 21:07] LABS: ACHR AB Modulating 13 % (0-45)
== END | disposition home or self-care (01) ==
LOC: MTLAB 13:37
PROVIDERS: Psychiatry & Neurology Neurology; PCP Family Medicine; Referring Provider Family Medicine; Visit Provider Family Medicine
DX: M54.50 Low back pain, unspecified (principal)
CPT/HCPCS: 36415; 72110; 83519; 84238

== ENCOUNTER → 2024-11-28 | Outpatient (CLI) | payer MEDICARE, OTHER, SELFPAY ==
[2024-11-28 18:30] LABS: ALB/GLOB Ratio 1.5 RATIO (0.9-2.4); AST(SGOT) 30 U/L (<=31); Alanine Aminotransfer ALT/SGPT 18 U/L (<=34); Albumin, Serum 3.9 g/dL (3.4-4.8); Alkaline Phosphatase 105 U/L (35-104); Anion Gap 9 (5-15); BUN 18 mg/dL (4-19); BUN/Creat Ratio 15.1 RATIO (10-20); Calcium,Total 9.2 mg/dL (7.6-11.0); Carbon Dioxide 25.9 mmol/L (21.0-32.0); Chloride 106 mmol/L (98-108); Creatinine, Serum 1.16 mg/dL (0.70-1.20); EST Glomerular Filtration Rate 49 (>60); Globulin 2.6 g/dL (2.2-4.2); Glucose 143 mg/dL (70-99); Potassium 4.3 mmol/L (3.3-5.1); Protein, Total 6.5 g/dL (5.9-8.4); Sodium Level 141 mmol/L (133-145); Total Bilirubin 0.27 mg/dL (0.00-1.30)
[2024-11-28 19:04] LABS: Absolute Lymphocyte Count 0.51 X10^3/uL (0.83-4.51); Basophil# 0.04 X10^3/uL; Basophil% 0.8 % (0-1); Hematocrit 35.8 % (37-47); Hemoglobin 11.6 g/dL (12.0-15.0); Lymphocyte # 0.51 X10^3/ul (0.83-4.51); Lymphocyte % 10.6 % (19-41); Mean Corp Hgb Conc 32.4 g/dL (32-36); Mean Corpuscular Hgb 33.6 pg (27.0-32.0); Mean Corpuscular Volume 103.8 fL (81-99); Mean Platelet Vol. 11.5 fl (6.2-12.0); Monocyte# 0.19 X10^3/uL; NRBC Flagged by Analyzer 0 % (0-5); Neutrophil # 4.03 X10^3/uL (2.7-7.7); Neutrophil % 84.2 % (47-70); POSITIVE DIFFERENTIAL YES; Platelet Count 246 K/mm3 (150-450); RBC Distribution Width CV 12.3 % (11.6-14.6); RBC Distribution Width SD 46.5 fl (35.1-43.9); Red Blood Count 3.45 M/mm3 (4.2-5.4); White Blood Count 4.8 K/mm3 (4.4-11.0)
== END | disposition home or self-care (01) ==
LOC: MTLAB 15:22
PROVIDERS: PCP Family Medicine; Referring Provider Internal Medicine Rheumatology; Visit Provider Internal Medicine Rheumatology
DX: M06.4 Inflammatory polyarthropathy (principal); Z79.899 Other long term (current) drug therapy; R76.8 Other specified abnormal immunological findings in serum; M79.7 Fibromyalgia
CPT/HCPCS: 36415; 80053; 85025

== ENCOUNTER → 2024-12-06 | Outpatient (CLI) | payer MEDICARE, OTHER, SELFPAY | END | disposition home or self-care (01) | LOC: SL 12:06 | PROVIDERS: PCP Family Medicine; Referring Provider Nurse Practitioner Family; Visit Provider Nurse Practitioner Family | DX: G47.33 Obstructive sleep apnea (adult) (pediatric) (principal) | CPT/HCPCS: 94762 ==

== ENCOUNTER → 2024-12-26 | Outpatient (CLI) | payer MEDICARE, OTHER, SELFPAY ==
--- NOTE | 2024-12-26 13:58 | ST.MBS ---
Modified Barium Swallow Patient Information Study Date: 12/26/24 Study Time: 13:00 Direct Billable Minutes: 120 Total Minutes procedure & reportin Diagnosis: R05.9; T17.908A Referring Physician: Carl Bourgeois Reason for Referral: The patient was referred for MBSS by her PCP due to patient reports of coughing w/ food and drink, especially drinks. Of note, she reports bad heartburn managed by [facility]. The patient verbalized various symptoms that have onset in the past few years and she feels are progressively worsening, including dysarthria, difficulty w/ word finding, difficulty w/ cognition, and gait difficulty w/ falls resulting in hitting her head (pt reports no LOC, no brain imaging immediately after falls). Patient did report hx of TIA. Due to these ongoing symptoms, she has been following w/ neurologist, Dr. Ugarte, for years and reports continuing to follow w/ him. She has no current definitive neurological diagnosis per patient report, but she follows for continued work up. Her next follow up is in 3-4 months. Medical History: PMH: Rheumatoid arthritis, Wears glasses, Post-menopausal, Walker as ambulation aid, Bladder disease, Low iron, Back pain, Migraine headache, TIA, MARTHA, Heartburn, SOB on exertion, Anisocoria, Hypoxia, Dysarthria, Expressive aphasia, Anxiety and Depression, Vertigo, HTN, Mild cognitive impairment, Multi-factorial gait disorder, Hx of tonsillectomy - See EMR for full PMH. Current Diet Ordered: Regular textures / Thin liquids Dentition: Natural Teeth and Missing Teeth Mental Status: Impaired (MCI) Respiratory Status: Oxygenating on Room Air Penetration-Aspiration Scale Penetration-Aspiration Scale: OBJECTIVE ASSESSMENT OF SWALLOW FUNCTION (QUANTITATIVE ? PER TRIAL): PENETRATION / ASPIRATION SCALE (BERNARD): 1 = does not enter airway 2 = enters airway/above vocal folds/ejected 3 = enters airway/above vocal folds/not ejected 4 = enters airway/contacts vocal folds/ejected 5 = enters airway/contacts vocal folds/not ejected 6 = enters airway/below vocal folds/ejected 7 = enters airway/below vocal folds/not ejected despite effort 8 = enters airway/below vocal folds/no effort VIDEOFLOROSCOPIC SCALE SCORE (BERNARD): Grade I = aspiration of material that has penetrated into the laryngeal vestibule, intact cough reflex Grade II = aspiration < 10 % of the bolus, intact cough reflex Grade III = aspiration of < 10 % of the bolus, reduced cough reflex or aspiration of > 10 % of the bolus, intact cough reflex Grade IV = aspiration of > 10 % of the bolus, reduced cough reflex Penetration-Aspiration Scale Score Thin Liquid via teaspoon: Result: 2= enter airway/above vocal folds/ejected Thin Liquid via teaspoon Trial 2: Result: 6= enters airway/below vocal folds/ejected Thin Liquid via large single sip: cup: Result: 5= enters airways/contacts vocal folds/not ejected (trace) Thin Liquid via large single sip: cup Effortful swallow: Result: 3= enters airways/above vocal folds/not ejected [place] Thick Liquid via large single sip: cup: Result: 2= enter airway/above vocal folds/ejected Pudding via teaspoon: Result: 1= does not enter airway Comment: Esophageal screen - Retention in the middle and lower esophagus w/ min retrograde flow. Thin Liquid via single sip: straw: Result: 7= enters airways/below vocal folds/not ejected despite effort Comment: Large sip Esophageal screen - Liquid wash was mostly effective in clearing esophageal retention of the previous trial. Thin Liquid via single sip: straw Effortful swallow: Result: 2= enter airway/above vocal folds/ejected Comment: Cued small sip 1/2 Cookie coated in barium pudding: Result: 2= enter airway/above vocal folds/ejected (Trace barium on VF, HEALTH TECHNICAL WRITER suspects trace post prandial penetration of previous trial. Reflexive cough cleared trace barium from the laryngeal vestibule after swallowing the cookie.) Comment: Esophageal screen - Retention of cookie throughout the esophagus. Thin Liquid via small single sip: cup Effortful swallow: Result: 2= enter airway/above vocal folds/ejected Comment: Esophageal screen - Thin Liquid via small single sip: cup Chin tuck: Result: 2= enter airway/above vocal folds/ejected Thin Liquid via small single sip: cup Chin tuck Trial 2: Result: 2= enter airway/above vocal folds/ejected Oral Phase Labial Seal: No Labial Escape Tongue Control During Bolus Hold: Posterior escape of less than half of bolus Bolus Preparation/Mastication: Slow prolonged chewing/mashing with complete recollection Bolus Transport/Lingual Motion: Slowed tongue motion Oral Residue: Majority of bolus remaining (~50% of pudding and cookie bolus - piecemeal deglutition) Pharyngeal Phase Initiation of Pharyngeal Swallow: Bolus head in pyriforms (thin by tsp spilled to the vocal folds prior to swallow onset) Soft Palate Elevation: Trace column of contrast/air between soft palate and pharyngeal wall Laryngeal Elevation: Partial superior movement thyroid cart/partial apprx aryt-epig petiole Anterior Hyoid Excursion: Partial anterior movement Epiglottic Movement: Complete inversion Pharyngeal Stripping Wave: Present - diminished Pharyngoesophageal Segment Opening: Parital distension and partial duration; parital obstruction of flow Tongue Base Retraction: Narrow column of contrast between tongue base & post. pharyngeal wall Pharyngeal Residue: Collection of residue within or on pharyngeal structures Esophageal Phase Esophageal Clearance: Esophageal retention w/ retrograde flow below pharyngoesophageal seg. Diagnosis/Impression Diagnosis: Moderate oropharyngeal dysphagia R13.12; Esophageal dysphagia R13.14 Impression: The oral phase is primarily marked by... -Decreased bolus control w/ premature posterior loss of thin liquids by tsp to the vocal folds prior to swallow onset w/ reflexive coughing preventing aspiration. Decreased bolus control greatly increases aspiration risk. -Slowed tongue motion for A-P transport. -Slowed, but complete mastication of cookie. Piecemeal deglutition of pudding and cookie. The pharyngeal phase is primarily marked by... -Mildly delayed swallow onset. -Mildly decreased pharyngeal motility due to decreased TB retraction and pharyngeal stripping wave. -Decreased airway closure due to decreased anterior hyoid excursion and laryngeal elevation w/ aspiration of thin liquids via large straw sip. Use of decreased bolus size in addition to either effortful swallow or chin tuck decreased the patient's risk for aspiration. See full PAS scores and details above. The esophageal phase is primarily marked by... -Retention of pudding in the middle and lower esophagus w/ min retrograde flow, which mostly cleared w/ thin liquid wash. -Retention of cookie throughout the esophagus, which mostly cleared w/ thin liquid wash. Recommendations Diet: Regular Textures and Thin Liquids Compensatory Strategies: Small Bites (Chew thoroughly), Small Sips (Effortful swallows), Slow Rate, Alternate bites/solids and sips/liquids and Sitting upright (During and 30-60min after meal) Recommend Repeat Modified Barium Swallow: TBD Need for Skilled Speech Therapy Services: Yes Comment: -Train the patient in use of strategies to decrease risk for aspiration and reflux aspiration. Effortful swallow has been recommended to decrease risk for aspiration w/ liquids; however, if pt fatigues w/ effortful swallow, a chin tuck was also effective. She could consider alternating between use of these two strategies in attempt to reduce fatigue. -Ongoing assessment of diet tolerance of recommended textures. If poor diet tolerance, would consider downgrade to mildly thick liquids; however, pt expressed that hydration is of utmost importance to her, so HEALTH TECHNICAL WRITER recommended continuing w/ thin liquids and utilizing strategies to decrease aspiration risk. -Implement and educate about importance of thorough oral care routine. -Would hold on oropharyngeal exercise program until further neurological work up has been completed. Could consider participation in EMST to decrease aspiration risk and improve cough strength. -Would consider the patient for speech production and cognitive-linguistic assessment given dysarthria, expressive aphasia, and mild cognitive impairment. Recommended Referrals: GI Consult (Pt already follows w/ Dr. Valderrama for lower GI issues. Would NOT recommend esophagram due to high aspiration risk w/ sequential thin liquids.) Education Completed: 1. Described result of evaluation. and 2. Pt understands evaluation & agrees with goals and treatment plan. Status Active ST Patient: Active Contact Information [facility] Speech Therapy:: Regina Chan M.A. CCC-HEALTH TECHNICAL WRITER? Speech-Language Pathologist?? [facility] [address] [place] [address]? [email or web address]?? [phone]
--- OUTSIDE RECORDS SUMMARY | 2024-12-26 23:27 | XMS RPT_ITS | CCD ---
Author Organization [facility] Care Team Providers Care Entertainment Agent Name Role Phone Dr. Carl Bourgeois Primary Care Provider [phone] Dr. Carl Bourgeois Referring Provider Dr. Reggie Martinez Attending Provider Dr. Carlos Ferris Attending Provider Dr. Reggie Michele Emergency Provider Herbie, Dr. Starks Admit Provider Dr. Raudel Stoner Attending Provider Herbie, Dr. Starks Other Provider Dr. Ruy Harmon Attending Provider Dr. Carl Olivo Attending Provider Dr. Carl Olivo Other Provider Dr. Carl Bourgeois Primary Care Provider [phone] Dr. Carl Bourgeois Referring Provider Dr. Carlos Ferris Attending Provider Dr. Reggie Michele Emergency Provider Dr. Raudel Stoner Admit Provider Dr. Raudel Stoner Attending Provider Dr. Raudel Stoner Other Provider Dr. Ruy Harmon Attending Provider Dr. Carl Olivo Attending Provider Dr. Carl Olivo Other Provider Dr. Hoang Ugarte Attending Provider [phone] Dr. Carl Bourgeois Primary Care Provider [phone] Dr. Carl Bourgeois Referring Provider Dr. Carlos Ferris Attending Provider Dr. Ruy Harmon Attending Provider Dr. Hoang Ugarte Referring Provider [phone] Carl Bourgeois Primary Care Provider [phone] Bk, Dr. Henry Referring Provider [phone] Dr. Hoang Ugarte Attending Provider [phone] Dr. Ruy Harmon Attending Provider [phone] Shanel, Dr. Bolton Referring Provider [phone] Sandra VALDEZ, JOSÉ MIGUEL Zhang Attending Provider Dr. Garry Concepcion Emergency Provider [phone] Rajat Dalal Attending Provider Dr. Rajat Dalal Admit Provider Dr. Rajat Dalal Other Provider Dr. Raudel Stoner Attending Provider Dr. Raudel Stoner Other Provider Dr. Negrito Shi Attending Provider Dr. Carl Bourgeois Primary Care Provider [phone] Dr. Carl Bourgeois Referring Provider Dr. Hoang Ugarte Attending Provider [phone] Dr. Carl Bourgeois Primary Care Provider [phone] Dr. Hoang Ugarte Referring Provider [phone] Dr. Carl Bourgeois Primary Care Provider [phone] Dr. Carl Bourgeois Referring Provider [phone] Carl Bourgeois Primary Care Provider [phone] Dr. Hoang Ugarte Attending Provider Dr. Hoang Ugarte Referring Provider Dr. Carl Bourgeois Referring Provider Sementi, Dr. Mariluz Ferreira Admit Provider Sementi, Dr. Mariluz Ferreira Attending Provider Sementi, Dr. Mariluz Ferreira Other Provider Dr. Carl Bourgeois Primary Care Provider Dr. Hoang Ugarte Attending Provider Dr. Hoang Ugarte Referring Provider Dr. Carl Bourgeois Primary Care Provider Sementi, Dr. Mariluz Ferreira Admit Provider Sementi, Dr. Mariluz Ferreira Attending Provider Sementi, Dr. Mariluz Ferreira Other Provider Dr. Hoang Ugarte Attending Provider Dr. Hoang Ugarte Referring Provider Dr. Carl Bourgeois Referring Provider Mateus [facility], [facility]oma Attending Provider Dr. Carl Bourgeois Primary Care Provider [phone] Hoang Ugarte Attending Provider Dr. Hoang Ugarte Referring Provider Dr. Carl Bourgeois Referring Provider JOSÉ MIGUEL Domingo Attending Provider Mateus [facility], [facility] [place]oma Attending Provider Dr. Carl Bourgeois Primary Care Provider Dr. Carl Bourgeois Referring Provider Dr. Hoang Ugarte Attending Provider Dr. Hoang Ugarte Referring Provider [facility], Dr. Henry Primary Care Provider Ileana NAZARIO, Dr. Talley Attending Provider [facility], Dr. Henry Attending Provider [phone] [facility] , Dr. Henry Referring Provider [phone] Shanel NAZARIO, Dr. Bolton Attending Provider Shanel NAZARIO, Dr. Bolton Referring Provider Chante Li Attending Provider Unavailable Paulo NAZARIO, Dr. Escobar Attending Provider Paulo NAZARIO, Dr. Escobar Other Provider Santa DEVINE, Dr. More Attending Provider [facility], Dr. More Referring Provider Arvin DO, Dr. Stuart Attending Provider Paulo NAZARIO, Dr. Escobar Referring Provider Ileana NAZARIO, Dr. Talley Referring Provider [facility], Dr. Henry Primary Care Provider [facility], Dr. Henry Referring Provider [phone] Shanel NAZARIO, Dr. Bolton Attending Provider Shanel NAZARIO, Dr. Bolton Referring Provider [facility], Dr. Henry Attending Provider [phone], [address]. Talley Attending Provider Shanel NAZARIO, Dr. Bolton Other Provider Valdez HOOVER, Slime Zhang Attending Provider [facility], Dr. Henry Primary Care Provider [facility] , Dr. Henry Referring Provider [facility] , Dr. Henry Primary Care Provider Shanel NAZARIO, Dr. Bolton Attending Provider Dr. Hoang Ugarte MD Referring Provider Dr. Carl Bourgeois DO Primary Care Provider Bk DEVINE, Dr. Henry Attending Provider Bk DEVINE, Dr. Henry Referring Provider Valdez WADDELL-CSlime Referring Provider Hoang Ugarte Attending Unavailable Bk, Carl Primary Care Unavailable Baddour, Hoang Referring Unavailable Baddour, Hoang Referring Unavailable Bk, Carl Primary Care Unavailable Baddomarisela, Hoang Attending Unavailable Bk, Carl Primary Care Unavailable Naga Bates Referring Unavailable Narciso Valderrama Attending Unavailable Bk, Carl Primary Care Unavailable Baddour, Hoang Consulting Unavailable BkCarl Attending Unavailable BkCarl Referring Unavailable Derik Pratt Referring Unavailable Derik Pratt Attending Unavailable Vellanki, Gerri Consulting Unavailable Bk, Carl Primary Care Unavailable Bk, Carl Primary Care Unavailable Vellanki, Gerri Referring Unavailable Vellanki, Gerri Attending Unavailable Naga Bates Attending Unavailable Bk, Carl Primary Care Unavailable Bk, Carl Referring Unavailable Bk, Carl Primary Care Unavailable Slime Kellogg Referring Unavailable Slime Kellogg Attending Unavailable Baddour, Hoang Referring Unavailable Bk, Carl Primary Care Unavailable Baddomarisela Hoang Attending Unavailable Baddour, Hoang Referring Unavailable Bk, Carl Primary Care Unavailable BaddoHoang antonio Attending Unavailable Bk, Carl Primary Care Unavailable Vellanki, Gerri Attending Unavailable Vellanki, Gerri Referring Unavailable Bk, Carl Primary Care Unavailable Yao Negrete Attending Unavailable Bk, Carl Primary Care Unavailable BkCarl Attending Unavailable Bk, Carl Referring Unavailable Bk, Carl Primary Care Unavailable Vellanki, Gerri Attending Unavailable Vellanki, Gerri Referring Unavailable Bk, Carl Referring Unavailable Bk, Carl Attending Unavailable Bk, Carl Primary Care Unavailable Bk, Carl Primary Care Unavailable BkCarl Attending Unavailable Bk, Carl Referring Unavailable Bk, Carl Primary Care Unavailable Vellanki, Gerri Referring Unavailable Vellanki, Gerri Attending Unavailable Borruulysses Derik Attending Unavailable Bk, Carl Primary Care Unavailable Bk, Carl Referring Unavailable Baddour, Hoang Attending Unavailable Bk, Carl Primary Care Unavailable Baddour, Hoang Referring Unavailable Bk, Carl Primary Care Unavailable RadhasoDerik Attending Unavailable Bk, Carl Referring Unavailable Bk, Carl Primary Care Unavailable Homa Ignacio Attending Unavailable Bk, Carl Referring Unavailable Baddour, Hoang Attending Unavailable Bk, Carl Primary Care Unavailable Baddour, Hoang Referring Unavailable Gerri Tejeda Attending Unavailable Bk, Carl Primary Care Unavailable Baddour, Hoang Attending Unavailable Bk, Carl Primary Care Unavailable Baddour, Hoang Referring Unavailable Bk, Carl Primary Care Unavailable Severo David Attending Unavailable Derik Pratt Attending Unavailable Bk, Carl Primary Care Unavailable Bk, Carl Referring Unavailable Bk, Carl Primary Care Unavailable Severo David Attending Unavailable Baddour, Hoang Referring Unavailable Bk, Carl Primary Care Unavailable Baddour, Hoang Attending Unavailable Baddour, Hoang Attending Unavailable Bk, Carl Primary Care Unavailable Baddour, Hoang Referring Unavailable Bk, Carl Primary Care Unavailable Naga Bates Attending Unavailable Naga Bates Consulting Unavailable Bk, Carl Referring Unavailable Chante Li Attending Unavailable Bk, Carl Primary Care Unavailable Baddour, Hoang Attending Unavailable Bk, Carl Primary Care Unavailable Bk, Carl Referring Unavailable Baddour, Hoang Attending Unavailable Bk, Carl Primary Care Unavailable Bk, Carl Referring Unavailable Baddour, Hoang Attending Unavailable Bk, Carl Primary Care Unavailable Bk, Carl Referring Unavailable Bk, Carl Primary Care Unavailable Slime Kellogg Attending Unavailable Bk, Carl Referring Unavailable Baddour, Hoang Attending Unavailable Baddour, Hoang Referring Unavailable Bk, Carl Primary Care Unavailable Bk, Carl Primary Care Unavailable Severo David Attending Unavailable Derik Pratt Attending Unavailable Bk, Carl Referring Unavailable Bk, Carl Primary Care Unavailable Baddour, Hoang Attending Unavailable Baddour, Hoang Referring Unavailable Bk, Carl Primary Care Unavailable Baddour, Hoang Referring Unavailable Bk, Carl Primary Care Unavailable Baddour, Hoang Attending Unavailable Bk, Carl Attending Unavailable Carl Bourgeois Referring Unavailable Carl Bourgeois Primary Care Unavailable Allergies Allergy Classification Reported Allergen(s) Allergy Type Date of Onset Reaction(s) Facility (20 sources) Codeine Drug Allergy 11-24-2020 Rash [facility] (1 source) Codeine Drug Allergy 11-28-2024 [facility] Repository Medications Current Medications Medication Drug Class(es) Dates Sig (Normalized) Sig (Original) acetaminophen 500 mg oral tablet (12 sources) Start: 03-09-2023 take 2 tablets by mouth every six hours as needed for pain Acetaminophen 500 mg Tablet Active 1000 mg PO EVERY 6 HOURS as needed for pain, mild March 09, 2023 12:15pm Start: 03-09-2023 take 1000 mg by mout h every six hours Acetaminophen Active 1000 MG PO EVERY 6 HOURS March 09, 2023 12:15pm aspirin 81 mg delayed release oral tablet (20 sources) Platelet Aggregation Inhibitor, Nonsteroidal Anti-inflammatory Drug Start: 07-09-2022 End: 10-08-2022 Aspirin (Adult Low Dose Aspirin) 81 mg tablet,delayed release (DR/EC) Active 81 mg PO DAILY October 08, 2022 2:22pm Start: 01-08-2016 End: 09-20-2018 take 1 tablet by mouth twice daily at mealtime Aspirin 325 MG tablet Discontinued 325 mg PO TWICE DAILY WITH MEALS 60 January 08, 2016 12:00am September 20, 2018 3:47pm calcium carbonate 1250 mg / cholecalciferol 0.01 mg oral tablet (20 sources) Vitamin D Start: 04-07-2022 Calcium Carbon ate-Vitamin D3 500 mg-10 mcg (400 unit) tablet Active 1 {tbl} PO THREE TIMES A DAY April 07, 2022 12:00am Start: 04-07-2022 take 1 tablet by amelia th three times daily Calcium Carbonate-Vitamin D3 Active 1 TABLET PO THREE TIMES A DAY April 07, 2022 12:00am DULoxetine 60 mg delayed release oral capsule (20 sources) Serotonin and Norepinephrine Reuptake Inhibitor Start: 10-08-2022 End: 06-28-2024 take 1 capsule by mouth twice daily Duloxetine 60 mg capsule,delayed release(DR/EC) Active 60 mg PO TWICE A DAY June 28, 2024 10:35am Start: 04-07-2022 take 60 mg by mouth twice amparo y Duloxetine Active 60 MG PO TWICE A DAY April 07, 2022 9:12am Start: 11-26-2015 End: 04-07-2022 take 1 capsule by mouth once daily Duloxetine 30 MG capsule Discontinued 30 mg PO DAILY November 26, 2015 12:00am April 07, 2022 10:25am ferrous fumarate 324 mg oral tablet (14 sources) Start: 11-26-2015 take 325 mg by mouth once daily Ferrous Fumarate Active 325 MG PO DAILY November 25, 2015 11:00pm ferrous sulfate 325 mg oral tablet (19 sources) Start: 10-08-2022 take 1 tablet by mouth once daily Ferrous Sulfate 325 mg (65 mg iron) Tablet Active 325 mg PO DAILY October 08, 2022 12:00am folic acid 1 mg oral tablet (20 sources) Start: 06-28-2024 take 2 tablets by mouth once daily Folic Acid 1 mg tablet Active 2 mg PO daily June 28, 2024 1:00am Start: 04-07-2022 End: 04-12-2024 take 1 tablet by mouth once daily Folic Acid 1 mg tablet Discontinued 1 mg PO DAILY April 07, 2022 12:00am April 12, 2024 10:33am Start: 04-07-2022 take 1 mg by mouth twice daily Folic Acid Active 1 MG PO TWICE A DAY April 07, 2022 12:00am gabapentin 100 mg oral capsule (16 sources) Anti-epileptic Agent Start: 11-28-2024 take 1 capsule by mouth three times daily Gabapentin 100 mg capsule Active 100 mg PO THREE TIMES A DAY 270 November 28, 2024 12:00am 90 day supply BERNABE: [id number] Start: 03-09-2023 End: 08-10-2023 Gabapentin 100 mg Capsule Di scontinued 0 .ROUTE .COMPLEX 120 March 09, 2023 12:00am August 10, 2023 2:29pm 1 capsule twice a day and 2 capsules 1 hr before bed. hydroxychloroquine sulfate 200 mg oral tablet (20 sources) Antimalarial, Antirheumatic Agent Start: 06-28-2024 take 1 tablet by mouth once daily Hydroxychloroquine (Plaquenil) 200 mg tablet Active 200 mg PO daily June 28, 2024 10:37am Start: 04-07-2022 End: 06-28-2024 take 1 tablet by mouth twice daily Hydroxychloroquine (Plaquenil) 200 mg tablet Discontinued 200 mg PO TWICE A DAY April 07, 2022 12:00am June 28, 2024 10:40am ibandronic acid 150 mg oral tablet (20 sources) Bisphosphonate Start: 11-26-2015 take 1 tablet by mouth every 30 days Ibandronate 150 MG tablet Active 150 mg PO Q30D November 26, 2015 12:00am meloxicam 7.5 mg oral tablet (9 sources) Nonsteroidal Anti-inflammatory Drug Start: 07-31-2024 End: 11-28-2024 take 1 tablet by mouth twice daily as needed for pain Meloxicam 7.5 mg tablet Active 7.5 mg PO TWICE A DAY as needed for pain 180 November 28, 2024 3:47pm methotrexate 2.5 mg oral tablet (20 sources) Folate Analog Metabolic Inhibitor Start: 04-07-2022 Methotrexate Sodium 2.5 mg tablet Active 15 mg PO ARIAS April 07, 2022 12:00am Start: 04-07-2022 Methotrexate S odium Active 15 MG PO ARIAS April 07, 2022 12:00am microencapsulated potassium chloride 10 meq extended release oral tablet (20 sources) Start: 04-07-2022 take 1 tablet by mouth twice daily Potassium Chloride 10 mEq tablet,ER particles/crystals Active 10 meq PO TWICE A DAY April 07, 2022 12:00am predniSONE 10 mg oral tablet (20 sources) Start: 04-12-2024 End: 05-18-2024 take 1 tablet by mouth once daily as needed Prednisone 10 mg tablet Active 10 mg PO DAILY as needed for RA May 18, 2024 11:20am Start: 10-08-2022 End: 02-24-2023 take 1 tablet by mouth once daily as needed Prednisone 10 mg tablet Discontinued 10 mg PO DAILY as needed for STEROID October 08, 2022 12:00am February 24, 2023 2:05pm Start: 04-07-2022 End: 07-08-2022 take 1 tablet by mouth once daily as needed for pain Prednisone 10 mg tablet Discontinued 10 mg PO DAILY as needed for fibromyalgia pain April 07, 2022 12:00am July 08, 2022 5:59pm Vibegron (6 sources) Start: 06-28-2024 take 1 tablet by mouth once daily Vibegron (Gemtesa) 75 mg tablet Active 75 mg PO daily June 28, 2024 1:00am vitamin b12 1 mg/ml injectable solution (19 sources) Vitamin B12 Start: 06-28-2024 inject 100 ug by intramuscular injection every month Cyanocobalamin (Vitamin B-12) 1,000 mcg/mL solution Active 100 ug IM EVERY MONTH June 28, 2024 1:00am Start: 02-22-2023 End: 04-12-2024 Cyanocobalamin (Vitamin B-12 ) (Dodex) 1,000 mcg/mL solution Discontinued 1000 ug SC EVERY MONTH February 22, 2023 12:00am April 12, 2024 10:33am Completed/Discontinued Medications Medication Drug Class(es) Dates Sig (Normalized) Sig (Original) acetaminophen 325 mg / HYDROcodone bitartrate 5 mg oral tablet (20 sources) Opioid Agonist Start: 11-24-2020 End: 04-07-2022 Hydrocodone-Acetami nophen 1 TABLET tablet Discontinued 1 {tbl} PO EVERY 6 HOURS NEEDED as needed for Pain 04 20November 24, 2020 April 07, 2022 10:24am Start: 11-24-2020 End: 04-07-2022 take 1 tablet by mouth every six hours as needed Hydrocodone-Acetaminophen Discontinued 1 TABLET PO EVERY 6 HOURS NEEDED 04 20November 24, 2020 April 07, 2022 10:24am Start: 01-08-2016 End: 09-20-2018 Hydrocodone-Acetaminophen 1 TABLET tablet Discontinued 1 - 2 {tbl} PO EVERY 6 HOURS NEEDED as needed for Mild-Mod Pain (1-5/10) January 08, 2016 12:00am September 20, 2018 3:47pm Start: 01-08-2016 End: 09-20-2018 take 1 tablet by mouth every six hours as needed Hydrocodone-Acetaminophen Discontinued 1 - 2 TABLET PO EVERY 6 HOURS NEEDED January 08, 2016 12:00am September 20, 2018 3:47pm Start: 11-26-2015 End: 01-08-2016 Hydrocodone-Acetaminophen 1 TABLET tablet Discontinued 0.5 {tbl} PO THREE TIMES A DAY November 26, 2015 12:00am January 08, 2016 11:37am Start: 11-26-2015 End: 01-08-2016 take 0.5 tablet by mouth three times daily Hydrocodone-Acetaminophen Discontinued 0 .5 TABLET PO THREE TIMES A DAY November 26, 2015 12:00am January 08, 2016 11:37am [id number] 200 actuat albuterol 0.09 mg/actuat metered dose inhaler (18 sources) beta2-Adrenergic Agonist Start: 10-10-2022 End: 03-09-2023 Albuterol Sulfate 90 mcg/actuation HFA aerosol inhaler Discontinued 2 NMA INHALATION EVERY 6 HOURS as needed for shortness of breath or wheezing 8.October 10, 2022 11:44am March 09, 2023 12:12pm Start: 10-10-2022 End: 03-09-2023 Albuterol Sulfate Discontinu ed 2 INH INHALATION EVERY 6 HOURS 8.October 10, 2022 11:44am March 09, 2023 12:12pm amoxicillin 500 mg oral tablet (20 sources) Penicillin-class Antibacterial Start: 04-07-2022 End: 07-08-2022 take 4 tablets by mouth once Amoxicillin 500 mg tablet Discontinued 2000 mg PO ONCE April 07, 2022 12:00am July 08, 2022 12:11pm prior to dentist appt Start: 04-07-2022 End: 07-08-2022 take 2000 mg by mouth once Amoxicillin Discontinued 20 00 MG PO ONCE April 07, 2022 12:00am July 08, 2022 12:11pm prior to dentist appt baclofen 10 mg oral tablet (12 sources) gamma-Aminobutyric Acid-ergic Agonist Start: 03-09-2023 End: 03-16-2023 take 1 tablet by mouth at bedtime, then take 0.5 tablet by mouth at bedtime Baclofen 10 mg Tablet Discontinued 5 mg PO AT BEDTIME March 09, 2023 12:00am March 16, 2023 1:43pm 1 and 1/2 tabs at bedtime for muscle relaxation Start: 03-09-2023 End: 03-16-2023 take 1 tablet by mouth at bedtime, then take 0.5 tablet by mouth at bedtime Baclofen Discontinued 5 MG PO AT BEDTIME March 09, 2023 12:00am March 16, 2023 1:43pm 1 and 1/2 tabs at bedtime for muscle relaxation busPIRone hydrochloride 10 mg oral tablet (20 sources) Start: 08-10-2023 End: 11-28-2024 take 1 tablet by mouth twice daily Buspirone 10 mg tablet Discontinued 10 mg PO TWICE A DAY 180 July 31, 2024 12:05pm November 28, 2024 11:31am Start: 03-09-2023 End: 08-10-2023 take 1 tablet by mouth twice daily Buspirone 5 mg tablet Discontinued 5 mg PO TWICE A DAY 180 March 16, 2023 1:44pm August 10, 2023 2:28pm Start: 02-24-2023 End: 03-09-2023 Buspirone 10 mg tablet Disco ntinued 15 mg PO TWICE A DAY February 24, 2023 12:00am March 09, 2023 12:13pm Start: 02-24-2023 End: 03-09-2023 take 15 mg by mouth twice daily Buspirone Discontinued 15 MG PO TWICE A DAY February 24, 2023 12:00am March 09, 2023 12:13pm Start: 11-09-2022 End: 02-24-2023 take 1 tablet by mouth twice daily Buspirone 10 mg tablet Discontinued 10 mg PO TWICE A DAY 60 November 09, 2022 12:00am February 24, 2023 2:07pm Start: 07-08-2022 End: 11-09-2022 take 1 tablet by mouth twice daily Buspirone 5 mg tablet Discontinued 5 mg PO TWICE A DAY October 08, 2022 2:22pm November 09, 2022 7:04pm calcium carbonate 1250 mg chewable tablet (20 sources) Start: 11-26-2015 End: 04-07-2022 take 1 tablet by mouth three times daily Calcium Carbonate 500 MG tablet,chewable Discontinued 500 mg PO THREE TIMES A DAY November 26, 2015 12:00am April 07, 2022 10:24am cefdinir 300 mg oral capsule (18 sources) Cephalosporin Antibacterial Start: 10-10-2022 End: 10-29-2022 take 1 capsule by mouth twice daily Cefdinir 300 mg capsule Discontinued 300 mg PO TWICE A DAY October 10, 2022 12:00am October 29, 2022 8:43am celecoxib 200 mg oral capsule (20 sources) Nonsteroidal Anti-inflammatory Drug Start: 11-26-2015 End: 04-07-2022 take 1 capsule by mouth twice daily Celecoxib 200 MG capsule Discontinued 200 mg PO TWICE A DAY November 26, 2015 12:00am April 07, 2022 10:24am cholecalciferol 0.025 mg oral tablet (20 sources) Vitamin D Start: 04-07-2022 End: 10-08-2022 take 1 tablet by mouth once daily Cholecalciferol (Vitamin D3) 25 mcg (1,000 unit) tablet Discontinued 2000 U PO DAILY April 07, 2022 10:18am October 08, 2022 2:20pm Start: 11-26-2015 End: 04-07-2022 take 2 tablets by mouth twice daily Cholecalciferol (Vitamin D3) 1,000 UNIT tablet Discontinued 2000 U PO TWICE A DAY November 26, 2015 12:00am April 07, 2022 10:25am Start: 11-26-2015 End: 04-07-2022 take 2000 [IU] by mouth twice daily Cholecalciferol (Vitamin D3) Discontinued 2000 UNIT PO TWICE A DAY November 26, 2015 12:00am April 07, 2022 10:25am clindamycin 300 mg oral capsule (20 sources) Lincosamide Antibacterial Start: 10-06-2022 End: 10-10-2022 take 1 capsule by mouth three times daily Clindamycin Hcl 300 mg capsule Discontinued 300 mg PO THREE TIMES A DAY October 08, 2022 2:30pm October 10, 2022 11:41am dexamethasone 6 mg oral tablet (9 sources) Corticosteroid Start: 06-28-2023 End: 11-04-2023 take 1 tablet by mouth once daily Dexamethasone 6 mg tablet Discontinued 6 mg PO DAILY June 28, 2023 1:00am November 04, 2023 3:27pm 12 hr guaiFENesin 1200 mg / pseudoephedrine hydrochloride 120 mg extended release oral tablet (18 sources) alpha-Adrenergic Agonist Start: 10-10-2022 End: 10-29-2022 Pseudoephedrine-Guaife nesin (Mucus D) 120-1,200 mg tablet extended release 12 hr Discontinued 1 {tbl} PO Q12H October 10, 2022 12:00am October 29, 2022 8:42am hydroCHLOROthiazide 25 mg oral tablet (20 sources) Thiazide Diuretic Start: 11-26-2015 End: 03-09-2023 take 1 tablet by mouth once daily Hydrochlorothiazide 25 MG tablet Discontinued mg PO DAILY November 26, 2015 12:00am March 09, 2023 12:12pm loratadine 10 mg oral tablet (20 sources) Start: 04-07-2022 End: 02-24-2023 take 1 tablet by mouth once daily as needed Loratadine (Allergy Relief (Loratadine)) 10 mg tablet Discontinued 10 mg PO DAILY as needed for allergic symptoms April 07, 2022 12:00am February 24, 2023 2:03pm Start: 11-26-2015 End: 09-20-2018 take 1 tablet by mouth once daily Loratadine 10 MG tablet Discontinued 10 mg PO DAILY November 26, 2015 12:00am September 20, 2018 2:35pm meclizine hydrochloride 12.5 mg oral tablet (20 sources) Antiemetic Start: 03-16-2023 End: 11-28-2024 take 1 tablet by mouth twice daily as needed for dizziness Meclizine 12.5 mg tablet Discontinued 12.5 mg PO TWICE A DAY as needed for dizziness 180 July 31, 2024 12:07pm November 28, 2024 11:31am Start: 03-09-2023 End: 03-16-2023 take 1 tablet by mouth four times daily as needed Meclizine 12.5 mg Tablet Discontinued 12.5 mg PO 4 TIMES DAILY NEEDED as needed for Vertigo March 09, 2023 12:00am March 16, 2023 1:46pm take only for vertigo (room spinning) Start: 10-08-2022 End: 03-09-2023 take 1 tablet by mouth once daily as needed for dizziness Meclizine 12.5 mg tablet Discontinued 12.5 mg PO DAILY as needed for DIZZINESS October 08, 2022 2:22pm March 09, 2023 12:12pm Start: 07-14-2022 End: 10-08-2022 take 1 tablet by mouth twice daily as needed for dizziness Meclizine 12.5 mg tablet Discontinued 12.5 mg PO TWICE A DAY as needed for dizziness 60 July 14, 2022 1:00am October 08, 2022 2:22pm medroxyPROGESTERone acetate 10 mg oral tablet (20 sources) Progestin Start: 10-05-2018 End: 10-15-2018 take 1 tablet by mouth three times daily Medroxyprogesterone 10 mg tablet Discontinued 10 mg PO THREE TIMES A DAY 90 October 05, 2018 12:00am October 14, 2018 12:00am October 15, 2018 12:08am Start: 09-22-2018 End: 09-23-2018 Medroxyprogesterone 10 mg ta blet Discontinued 10 mg PO .COMPLEX 60 0 September 22, 2018 1:00am September 22, 2018 1:00am September 23, 2018 1:09am 10 mg PO tid until bleeding stops X 24 hour then bid to finish Rx; propranolol hydrochloride 10 mg oral tablet (20 sources) beta-Adrenergic Naeem Start: 11-09-2022 End: 11-28-2024 take 1 tablet by mouth twice daily Propranolol 10 mg tablet Discontinued 10 mg PO TWICE A DAY 180 July 31, 2024 12:07pm November 28, 2024 11:31am Start: 07-08-2022 End: 11-09-2022 take 1 tablet by mouth once daily Propranolol 40 mg tablet Discontinued 40 mg PO DAILY July 08, 2022 5:59pm November 09, 2022 7:05pm Start: 11-26-2015 End: 07-08-2022 take 1 tablet by mouth twice daily Propranolol 40 MG tablet Discontinued 40 mg PO TWICE A DAY November 26, 2015 12:00am July 08, 2022 5:59pm topiramate 25 mg oral capsule (20 sources) Start: 04-07-2022 End: 07-08-2022 take 1 capsule by mouth once daily Topiramate 25 mg capsule, sprinkle Discontinued 25 mg PO DAILY April 07, 2022 12:00am July 08, 2022 5:59pm traMADol hydrochloride 50 mg oral tablet (12 sources) Opioid Agonist Start: 03-09-2023 End: 03-16-2023 take 50-100 mg by mouth every six hours as needed for pain Tramadol 50 mg Tablet Discontinued 50 - 100 mg PO EVERY 6 HOURS NEEDED as needed for Pain Score 3-10 50 March 09, 2023 12:00am March 16, 2023 1:40pm Vitamin B Complex (B Complex-Vitamin B12) tablet (17 sources) Start: 10-29-2022 End: 02-22-2023 Vitamin B Complex (B Complex-Vitamin B12) tablet Discontinued 1 {tbl} PO DAILY October 29, 2022 12:00am February 22, 2023 2:46am Start: 10-29-2022 End: 02-22-2023 take 1 tablet by mouth once daily Vitamin B Complex (B Complex-Vitamin B12) tablet Discontinued 1 TABLET PO DAILY October 28, 2022 11:00pm February 22, 2023 1:46am Start: 10-29-2022 End: 02-22-2023 take 1 tablet by mouth once daily Vitamin B Complex (B Complex-Vitamin B12) tablet Discontinued 1 TABLET PO DAILY October 29, 2022 12:00am February 22, 2023 2:46am Start: 10-29-2022 take 1 tablet by amelia th once daily Vitamin B Complex (B Complex-Vitamin B12) tablet Active 1 TABLET PO DAILY October 29, 2022 12:00am Problems Active Problems Problem Classification Problem Date Documented Da te Episodic/Chronic Acute bronchitis (20 sources) Acute bronchitis; Translations: [Acute bronchitis, unspecified] 10-06-2022 Episodic Anxiety disorders (20 sources) Anxiety; Translations: [Anxiety disorder, unspecified] Onset: 08-21-2024 07-08-2022 Chronic Comment on above: ON MED Benign neoplasm of uterus (20 sources) Uterine leiomyoma; Translations: [Leiomyoma of uterus, unspecified] 10-20-2018 Episodic Blindness and vision defects (5 sources) Diplopia; Translations: [Diplopia] 10-31-2024 Episodic Conditions associated with dizziness or vertigo (20 sources) Vertigo; Translations: [Dizziness and giddiness] 07-08-2022 Episodic Deficiency and other anemia (12 sources) Macrocytic anemia; Translations: [Nutritional anemia, unspecified] 02-25-2023 Episodic Deficiency and other anemia (1 source) Nutritional anemia, unspecified; Translations: [Unspecified deficiency anemia] 03-10-2023 Episodic Diverticulosis and diverticulitis (12 sources) Diverticular disease; Translations: [Diverticulosis of intestine, part unspecified, without perforation or abscess without bleeding] 09-27-2024 Chronic E Codes: Fall (6 sources) Fall; Translations: [Unspecified fall, initial encounter] 04-17-2024 Episodic Genitourinary symptoms and ill-defined conditions (20 sources) Female stress incontinence; Translations: [Stress incontinence (female) (male)] 10-20-2018 Chronic Headache; including migraine (6 sources) Migraine; Translations: [Migraine, unspecified, not intractable, without status migrainosus] 11-28-2024 Chronic Malaise and fatigue (1 source) Chronic fatigue, unspecified; Translations: [Chronic fatigue, unspecified] Onset: 12-21-2024 Chronic Malaise and fatigue (20 sources) Fatigue; Translations: [Other fatigue] 12-02-2022 Episodic Menopausal disorders (20 sources) Postmenopausal bleeding; Translations: [Postmenopausal bleeding] 10-20-2018 Chronic Mood disorders (20 sources) Depressive disorder; Translations: [Depression] 07-08-2022 Chronic Comment on above: ON MED Nausea and vomiting (20 sources) Nausea and vomiting; Translations: [Nausea with vomiting, unspecified] 10-08-2022 Episodic Osteoarthritis (20 sources) Osteoarthritis; Translations: [Unspecified osteoarthritis, unspecified site] 10-20-2018 Chronic Osteoporosis (20 sources) Osteoporosis; Translations: [Age-related osteoporosis without current pathological fracture] Onset: 08-31-2024 10-20-2018 Chronic Comment on above: BMD in 2013 showed b orderline osteopenia and the BMD in 2019 was normal. Other and unspecified benign neoplasm (14 sources) History of polyp of colon; Translations: [History of colonic polyps] 07-27-2024 Episodic Other circulatory disease (20 sources) Raynaud's phenomenon; Translations: [Raynaud's syndrome without gangrene] 04-07-2022 Chronic Other circulatory disease (5 sources) Raynaud's syndrome without gangrene; Translations: [Raynaud's syndrome] Chronic Other circulatory disease (20 sources) Orthostatic hypotension; Translations: [Orthostatic hypotension] 07-08-2022 Episodic Other circulatory disease (11 sources) Orthostatic hypotension; Translations: [Orthostatic hypotension] 07-08-2022 Episodic Other connective tissue disease (20 sources) Paraparesis; Translations: [Other symptoms and signs involving the musculoskeletal system] 05-08-2022 Episodic Other connective tissue disease (7 sources) Other symptoms and signs involving the musculoskeletal system; Translations: [Other musculoskeletal symptoms referable to limbs] Episodic Other connective tissue disease (13 sources) Fibromyalgia; Translations: [Fibromyalgia] 08-05-2024 Episodic Other eye disorders (12 sources) Anisocoria; 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] 02-25-2023 Chronic Other eye disorders (1 source) Anisocoria; 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] 03-10-2023 Chronic Other female genital disorders (20 sources) Enlarged uterus; Translations: [Hypertrophy of uterus] 10-20-2018 Episodic Other fractures (20 sources) Fracture of rib; Translations: [Fracture of one rib, left side, initial encounter for closed fracture] 11-25-2020 Episodic Other fractures (9 sources) Fracture of left rib; Translations: [Fracture of one rib, left side, initial encounter for closed fracture] 11-25-2020 Episodic Other gastrointestinal disorders (12 sources) Chronic constipation; Translations: [Other constipation] 09-27-2024 Episodic Other hereditary and degenerative nervous system conditions (20 sources) Impaired cognition; Translations: [Mild cognitive impairment, so stated] 07-08-2022 Chronic Other hereditary and degenerative nervous system conditions (20 sources) Mild cognitive impairment, so stated; Translations: [Mild cognitive impairment, so stated] Onset: 08-21-2024 07-08-2022 Chronic Other infections; including parasitic (5 sources) H/O: viral illness; Translations: [Personal history of other infectious and parasitic diseases] 10-29-2022 Episodic Other infections; including parasitic (5 sources) Personal history of other infectious and parasitic diseases; Translations: [Personal history of other infectious and parasitic diseases] 10-29-2022 Episodic Other injuries and conditions due to external causes (1 source) Unspecified foreign body in respiratory tract, part unspecified causing other injury, initial encounter; Translations: [Unspecified foreign body in respiratory tract, part unspecified causing other injury, initial encounter] Onset: 12-20-2024 Episodic Other lower respiratory disease (19 sources) Hypoxia; Translations: [Hypoxemia] 10-08-2022 Episodic Other lower respiratory disease (6 sources) Hypoxemia; Translations: [Hypoxemia] 10-08-2022 Episodic Other nervous system disorders (20 sources) Expressive dysphasia; Translations: [Aphasia] 05-08-2022 Chronic Other nervous system disorders (18 sources) Aphasia; Translations: [Aphasia] 10-08-2022 Chronic Other nervous system disorders (5 sources) Aphasia; Translations: [Aphasia] 10-10-2022 Chronic Other nervous system disorders (13 sources) Unable to walk; Translations: [Difficulty in walking, not elsewhere classified] 02-22-2023 Chronic Other nervous system disorders (20 sources) Multifactorial gait problem; Translations: [Other abnormalities of gait and mobility] 07-08-2022 Episodic Other nervous system disorders (19 sources) Other abnormalities of gait and mobility; Translations: [Abnormality of gait] 07-08-2022 Episodic Other nervous system disorders (19 sources) Dysarthria; Translations: [Dysarthria and anarthria] 10-08-2022 Episodic Comment on above: She has c/o of this many times while at the hospital and in the ED but, recent MRI without evidence of a prior stroke and I do not feel she has dysarthria now, although she believes this. Other nervous system disorders (9 sources) Dysarthria and anarthria; Translations: [Dysarthria] 10-08-2022 Episodic Other nervous system disorders (13 sources) Abnormal gait; Translations: [Unspecified abnormalities of gait and mobility] 12-14-2023 Episodic Other non-traumatic joint disorders (13 sources) Hip pain; Translations: [Pain in left hip] 07-31-2024 Episodic Other nutritional; endocrine; and metabolic disorders (15 sources) Obesity; Translations: [Obesity, unspecified] 2023 Chronic Other nutritional; endocrine; and metabolic disorders (2 sources) Obesity, unspecified; Translations: [Obesity, unspecified] 2023 Chronic Other screening for suspected conditions (not mental disorders or infectious disease) (20 sources) Endometrium thickened; Translations: [Abnormal findings on diagnostic imaging of other specified body structures] 10-20-2018 Chronic Other upper respiratory infections (20 sources) Acute maxillary sinusitis; Translations: [Acute maxillary sinusitis, unspecified] 10-06-2022 Episodic Pneumonia (except that caused by tuberculosis or sexually transmitted disease) (5 sources) Pneumonia; Translations: [Pneumonia, unspecified organism] 10-08-2022 Episodic Residual codes; unclassified (12 sources) Hypersomnia; Translations: [Hypersomnia, unspecified] 03-10-2023 Chronic Residual codes; unclassified (3 sources) Hypersomnia, unspecified; Translations: [Hypersomnia, unspecified] 03-10-2023 Chronic Residual codes; unclassified (15 sources) Obstructive sleep apnea syndrome; Translations: [Obstructive sleep apnea (adult) (pediatric)] 2023 Chronic Comment on above: AHI 14.9 Residual codes; unclassified (6 sources) Obstructive sleep apnea (adult) (pediatric); Translations: [Obstructive sleep apnea (adult)(pediatric)] Onset: 12-13-2024 2023 Chronic Residual codes; unclassified (19 sources) Altered mental status; Translations: [Altered mental status, unspecified] 10-08-2022 Episodic Residual codes; unclassified (6 sources) Altered mental status, unspecified; Translations: [Altered mental status] 10-08-2022 Episodic Residual codes; unclassified (13 sources) History of operative procedure on lumbosacral spinal structure; Translations: [Other specified postprocedural states] 02-22-2023 Episodic Residual codes; unclassified (12 sources) History of operative procedure on lumbar spinal structure; Translations: [Other specified postprocedural states] 02-25-2023 Episodic Comment on above: 02/17/[address] Frank Horan. Decomression and fusion. Residual codes; unclassified (3 sources) Other specified postprocedural states; Translations: [Other postprocedural status] 03-10-2023 Episodic Rheumatoid arthritis and related disease (20 sources) Inflammatory polyarthropathy; Translations: [Inflammatory polyarthropathy] Onset: 12-04-2024 07-08-2022 Chronic Spondylosis; intervertebral disc disorders; other back problems (20 sources) Arthritis of lumbosacral spine; Translations: [Spondylosis without myelopathy or radiculopathy, lumbosacral region] Chronic Systemic lupus erythematosus and connective tissue disorders (20 sources) Lupus erythematosus; Translations: [Systemic lupus erythematosus, unspecified] 10-20-2018 Chronic Comment on above: This is questionable ......2nd opinion at [facility] told her she does not have SLE Transient cerebral ischemia (20 sources) Transient cerebral ischemia; 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, unspecified] 07-08-2022 Chronic Unclassified (1 source) Cough, unspecified; Translations: [Cough, unspecified] Onset: 12-20-2024 Unclassified (1 source) Low back pain, unspecified; Translations: [Low back pain, unspecified] Onset: 11-23-2024 Unclassified (1 source) Personal history of colon polyps, unspecified; Translations: [Personal history of colon polyps, unspecified] Onset: 08-18-2024 Past or Other Problems Problem Classification Problem Date Documented Date Episodic/Chronic Deficiency and other anemia (1 source) Anemia, unspecified; Translations: [Anemia, unspecified] Onset: 07-28-2024 Episodic Fracture of upper limb (16 sources) Fracture of metacarpal bone; Translations: [Unspecified fracture of unspecified metacarpal bone, initial encounter for closed fracture] Onset: 04-12-2024 04-19-2024 Episodic Immunizations and screening for infectious disease (1 source) Other specified abnormal immunological findings in serum; Translations: [Other specified abnormal immunological findings in serum] Onset: 09-21-2024 Episodic Other aftercare (1 source) Other care home (current) drug therapy; Translations: [Other roasterman (current) drug therapy] Onset: 09-21-2024 Episodic Other connective tissue disease (1 source) Fibromyalgia; Translations: [Fibromyalgia] Onset: 09-21-2024 Episodic Other connective tissue disease (1 source) Pain in right hand; Translations: [Pain in right hand] Onset: 05-26-2024 Episodic Other injuries and conditions due to external causes (1 source) Unspecified injury of right forearm, initial encounter; Translations: [Unspecified injury of right forearm, initial encounter] Onset: 07-05-2024 Episodic Other nervous system disorders (1 source) Unspecified abnormalities of gait and mobility; Translations: [Unspecified abnormalities of gait and mobility] Onset: 08-21-2024 Episodic Other non-traumatic joint disorders (1 source) Pain in left hip; Translations: [Pain in left hip] Onset: 08-23-2024 Episodic Other screening for suspected conditions (not mental disorders or infectious disease) (8 sources) Patient encounter status; Translations: [Encounter for screening for malignant neoplasm of colon] Onset: 07-27-2024 06-28-2024 Episodic Spondylosis; intervertebral disc disorders; other back problems (20 sources) Low back pain; Translations: [Low back pain] Onset: 08-21-2024 04-15-2022 Episodic Comment on above: 02/2023 Results Test Name Value Interpretation Reference Range Facility Office Visit Reporton 2024 Office Visit Report Normal [facility] Absolute lymphocyte countOrd ered By: Gerri Tejeda on 11-28-2024 Lymphocytes Auto (Unsp spec) [#/Vol] 0.51 10*3/uL Low 0.83-4.51 [facility] Absolute neutrophil countOrd ered By: Gerripriscilla Tejeda on 11-28-2024 Neutrophils (Bld) [#/Vol] 4.0 10*3/uL 2.0-7.7 [facility] Anion gap in Serum or Plasma Ordered By: Gerri Tejeda on 11-28-2024 Anion gap [Moles/Vol] 9 mmol/L 5- [facility] Automated lymphocyte count a s percentage of total leukocytesOrdered By: Gerri Tejeda on 11-28-2024 Lymphocytes/100 WBC Auto (Unsp spec) 10.6 % Low 19-41 [facility] BUN/creatinine ratioOrdered By: [facility] Ileana on 11-28-2024 Urea nitrogen/Creatinine [Mass ratio] 15.1 mg/mg 10- [facility] Basophil percentageOrdered B y: Gerri Tejeda on 11-28-2024 Basophils/100 WBC (Bld) 0.8 % 0-1 [facility] Bilirubin, totalOrdered By: Gerri Tejeda on 11-28-2024 Bilirubin [Mass/Vol] 0.27 mg/dL 0.00-1.30 [facility] CBC W/Diff, Automatedon 11-16 Absolute Lymph 0.51 X10 3/uL Low 0.83-4.51 [facility] Comment on above: Performed By: #### L 500.4050, L100.0100 ####[facility] [address] [place], [address] Absolute Neut 4.0 X10 3/uL Normal 2.0-7.7 [facility] Comment on above: Performed By: #### L [id number], L100.0100 ####[facility] [address] [place], [address] Basophils/100 WBC (Bld) 0.8 % Normal 0-1 [facility] Comment on above: Performed By: #### L [id number], L100.0100 ####[facility] [address] [place], [address] Eosinophils/100 WBC (Bld) 0.0 % Normal 0-5 [facility] Comment on above: Performed By: #### L [id number], L100.0100 ####[facility] [address] [place], [address] Erythrocyte distribution width (RBC) [Ratio] 12.3 % Normal 11.6-14.6 [facility] Comment on above: Performed By: #### L [id number], L100.0100 ####[facility] [address] [place], [address] Hematocrit (Bld) [Volume fraction] 35.8 % Low 37-47 [facility] Comment on above: Performed By: #### L [id number], L100.0100 ####[facility] [address] [place], [address] Hemoglobin (Bld) [Mass/Vol] 11.6 g/dL Low 12.0-15.0 [facility] Comment on above: Performed By: #### L [id number], L100.0100 ####[facility] [address] [place], [address] IG% 0.400 Normal 0.0-0.9 [facility] Comment on above: Result Comment: IG% - Immature Granulocytes (promyelocytes, myelocytes andmetamyelocytes) > 1% indicates that a LEFT SHIFT is Present. Performed By: #### L 500.4050, L100.0100 ####[facility] [address] [place], [address] Lymphocytes/100 WBC (Bld) 10.6 % Low 19-41 [facility] Comment on above: Performed By: #### L [id number], L100.0100 ####[facility] [address] [place], [address] MCH (RBC) [Entitic mass] 33.6 pg High 27.0-32.0 [facility] Comment on above: Performed By: #### L [id number], L100.0100 ####[facility] [address] [place], [address] MCHC (RBC) [Mass/Vol] 32.4 g/dL Normal 32-36 [facility] Comment on above: Performed By: #### L [id number], L100.0100 ####[facility] [address] [place], [address] MCV (RBC) [Entitic vol] 103.8 fL High 81-99 [facility] Comment on above: Performed By: #### L [id number], L100.0100 ####[facility] [address] [place], [address] Monocytes/100 WBC (Bld) 4.0 % Normal 0-10 [facility] Comment on above: Performed By: #### L [id number], L100.0100 ####[facility] [address] [place], [address] Neutrophils/100 WBC (Bld) 84.2 % High 47-70 [facility] Comment on above: Performed By: #### L [id number], L100.0100 ####[facility] [address] [place], [address] Nucleated RBC (Bld) [#/Vol] 0 10*3/uL Normal 0-5 [facility] Comment on above: Performed By: #### L [id number], L100.0100 ####[facility] [address] [place], [address] Platelet mean volume (Bld) [Entitic vol] 11.5 fL Normal 6.2-12.0 [facility] Comment on above: Performed By: #### L 500.4050, L100.0100 ####[facility] [address] [place], [address] Platelets (Bld) [#/Vol] 246 10*3/uL Normal 150-450 [facility] Comment on above: Performed By: #### L [id number], L100.0100 ####[facility] [address] [place], [address] RBC (Bld) [#/Vol] 3.45 10*6/uL Low 4.2-5.[address] [facility] Comment on above: Performed By: #### L 500.4050, L100.0100 ####[facility] [address] [place], [address] RDW SD 46.5 fl High 35.1-43.9 [facility] Comment on above: Performed By: #### L 500.4050, L100.0100 ####[facility] [address] [place], [address] WBC (Bld) [#/Vol] 4.8 10*3/uL Normal 4.4-11.0 [facility] Comment on above: Performed By: #### L 500.4050, L100.0100 ####[facility] [address] [place], [address] Carbon dioxide, total [Moles /volume] in Central venous bloodOrdered By: Gerri Tejeda on 11-28-2024 CO2 [Moles/Vol] 25.9 mmol/L 21.0-32.0 [facility] Chloride assayOrdered By: José Miguel Tejeda on 11-28-2024 Chloride [Moles/Vol] 106 mmol/L 98-108 [facility] Comprehensive Metabolic Prof ilon 11-28-2024 Albumin [Mass/Vol] 3.9 g/dL Normal 3.4-4.8 [facility] Comment on above: Performed By: #### L 500.4050, L100.0100 ####[facility] [address] [place], [address] Albumin/Globulin [Mass ratio] 1.5 {ratio} Normal 0.9-2.4 [facility] Comment on above: Performed By: #### L 500.4050, L100.0100 ####[facility] [address] [place], [address] ALK PHOS 105 U/L High 35-104 [facility] Comment on above: Performed By: #### L 500.4050, L100.0100 ####[facility] [address] [place], [address] ALT [Catalytic activity/Vol] 18 U/L Normal <=34 [facility] Comment on above: Performed By: #### L 500.4050, L100.0100 ####[facility] [address] [place], [address] AST [Catalytic activity/Vol] 30 U/L Normal <=31 [facility] Comment on above: Performed By: #### L 500.4050, L100.0100 ####[facility] [address] [place], [address] Bilirubin [Mass/Vol] 0.27 mg/dL Normal 0.00-1.30 [facility] Comment on above: Performed By: #### L 500.4050, L100.0100 ####[facility] [address] [place], [address] BUN/CRE 15.1 RATIO Normal 10-20 [facility] Comment on above: Performed By: #### L 500.4050, L100.0100 ####[facility] [address] [place], [address] Calcium [Mass/Vol] 9.2 mg/dL Normal 7.6-11.0 [facility] Comment on above: Performed By: #### L 500.4050, L100.0100 ####[facility] [address] [place], [address] Chloride [Moles/Vol] 106 mmol/L Normal 98-108 [facility] Comment on above: Performed By: #### L 500.4050, L100.0100 ####[facility] [address] [place], [address] CO2 [Moles/Vol] 25.9 mmol/L Normal 21.0-32.0 [facility] Comment on above: Performed By: #### L 500.4050, L100.0100 ####[facility] [address] [place], [address] Creatinine [Mass/Vol] 1.16 mg/dL Normal 0.70-1.20 [facility] Comment on above: Performed By: #### L 500.4050, L100.0100 ####[facility] [address] [place], [address] GAP 9 Normal 5-15 [facility] Comment on above: Performed By: #### L 500.4050, L100.0100 ####[facility] [address] [place], [address] GFR/1.73 sq M.predicted among non-blacks MDRD (S/P/Bld) [Vol rate/Area] 49 mL/min/{1.73_m2} Low >60 [facility] Comment on above: Result Comment: mL/m in/1.73m2 CKD-EPI Creatinine Equation (2020) Performed By: #### L 500.4050, L100.0100 ####[facility] [address] [place], [address] Globulin (S) [Mass/Vol] 2.6 g/dL Normal 2.2-4.2 [facility] Comment on above: Performed By: #### L 500.4050, L100.0100 ####[facility] [address] [place], [address] Glucose [Mass/Vol] 143 mg/dL High 70-99 [facility] Comment on above: Performed By: #### L 500.4050, L100.0100 ####[facility] [address] [place], [address] Potassium [Moles/Vol] 4.3 mmol/L Normal 3.3-5.1 [facility] Comment on above: Performed By: #### L 500.4050, L100.0100 ####[facility] [address] [place], [address] Sodium [Moles/Vol] 141 mmol/L Normal 133-145 [facility] Comment on above: Performed By: #### L 500.4050, L100.0100 ####[facility] [address] [place], [address] T PROT 6.5 g/dL Normal 5.9-8.4 [facility] Comment on above: Performed By: #### L 500.4050, L100.0100 ####[facility] [address] [place], [address] Urea nitrogen [Mass/Vol] 18 mg/dL Normal 4-19 [facility] Comment on above: Performed By: #### L 500.4050, L100.0100 ####[facility] [address] [place], [address] Eosinophil percentageOrdered By: Gerri Tejeda on 11-28-2024 Eosinophils/100 WBC (Bld) 0.0 % 0-5 [facility] Erythrocyte distribution wid th ratioOrdered By: Gerri Tejeda on 11-28-2024 Erythrocyte distribution width (RBC) [Ratio] 12.3 % 11.6-14.6 [facility] Erythrocyte distribution wid th standard deviationOrdered By: Gerri Tejeda on 11-28-2024 Erythrocyte distribution width (RBC) [Ratio] 46.5 fl High 35.1-43.9 [facility] Glomerular filtration rate ( GFR) estimation/1.73 sq m using serum, plasma, or whole bOrdered By: Gerri Tejeda on 11-28-2024 GFR/1.73 sq M.predicted among non-blacks MDRD (S/P/Bld) [Vol rate/Area] 49 mL/min/{1.73_m2} Low >60 [facility] Comment on above: mL/min/1.73m2 CKD-EP I Creatinine Equation (2020) Hematocrit Auto (Bld) [Volum e fraction]Ordered By: Gerri Tejeda on 11-28-2024 Hematocrit (Bld) [Volume fraction] 35.8 % Low 37-47 [facility] Hemoglobin measurementOrdere d By: Gerri Tejeda on 11-28-2024 Hemoglobin (Bld) [Mass/Vol] 11.6 g/dL Low 12.0-15.0 [facility] Immature granulocytes/100 WB C Auto (Bld)Ordered By: Gerri Tejeda on 11-28-2024 Immature granulocytes/100 WBC (Bld) 0.400 % 0.0-0.9 [facility] Comment on above: IG% - Immature Granu locytes (promyelocytes, myelocytes and metamyelocytes) > 1% indicates that a LEFT SHIFT is Present. Laboratory - Chemistry and C hemistry - challengeOrdered By: Gerri Tejeda on 11-28-2024 AST [Catalytic activity/Vol] 30 U/L <32 [facility] MCV (mean corpuscular volume ) determinationOrdered By: Gerri Tejeda on 11-28-2024 MCV (RBC) [Entitic vol] 103.8 fL High 81-99 [facility] Mean corpuscular hemoglobin (MCH) determinationOrdered By: Gerri Tejeda 11-28-2024 MCH (RBC) [Entitic mass] 33.6 pg High 27.0-32.0 [facility] Mean corpuscular hemoglobin concentration (MCHC) determinationOrdered By: Gerri Tejeda on 11-28-2024 MCHC (RBC) [Mass/Vol] 32.4 g/dL 32-36 [facility] Mean platelet volume determi nationOrdered By: Gerri Tejeda on 11-28-2024 Platelet mean volume (Bld) [Entitic vol] 11.5 fL 6.2-12.0 [facility] Monocyte percentageOrdered B y: Gerri Tejeda on 11-28-2024 Monocytes/100 WBC (Bld) 4.0 % 0-10 [facility] Neurology Visit Reporton Neurology Visit Report Normal [facility] Neutrophil percentageOrdered By: Gerri Tejeda on 11-28-2024 Neutrophils/100 WBC (Bld) 84.2 % High 47-70 [facility] Nucleated red blood cell per centageOrdered By: Gerri Tejeda on 11-28-2024 Nucleated RBC/100 WBC (Bld) [Ratio] 0 % 0-5 [facility] Platelet countOrdered By: José Miguel Tejeda on 11-28-2024 Platelets (Bld) [#/Vol] 246 10*3/uL 150-450 [facility] Potassium measurement (mass/ volume)Ordered By: Gerri Tejeda on 11-28-2024 Potassium (Unsp spec) [Mass/Vol] 4.3 mmol/L 3.3-5.1 [facility] RBC Auto (Bld) [#/Vol]Ordere d By: Gerri Tejeda on 11-28-2024 RBC (Bld) [#/Vol] 3.45 10*6/uL Low 4.2-5.[address] [facility] Serum creatinine measurement (mass/volume)Ordered By: Gerri Tejeda on 11-28-2024 Creatinine [Mass/Vol] 1.16 mg/dL 0.70-1.20 [facility] Serum globulin measurementOr dered By: Gerri Tejeda on 11-28-2024 Globulin (S) [Mass/Vol] 2.6 g/dL 2.2-4.2 [facility] Serum glucose measurement (m ass/volume)Ordered By: Gerri Tejeda on 11-28-2024 Glucose [Mass/Vol] 143 mg/dL High 70-99 [facility] Serum or plasma alanine cloud otransferase (ALT) measurementOrdered By: Gerri Tejeda on 11-28-2024 ALT [Catalytic activity/Vol] 18 U/L <35 [facility] Serum or plasma albumin leatha urement (mass/volume)Ordered By: Gerri Tejeda on 11-28-2024 Albumin [Mass/Vol] 3.9 g/dL 3.4-4.8 [facility] Serum or plasma albumin/glob ulin mass ratioOrdered By: Gerri Tejeda on 11-28-2024 Albumin/Globulin [Mass ratio] 1.5 {ratio} 0.9-2.4 [facility] Serum or plasma alkaline kunal sphatase measurementOrdered By: Gerri Tejeda on 11-28-2024 ALP [Catalytic activity/Vol] 105 U/L High 35-104 [facility] Serum or plasma calcium leatha urement (mass/volume)Ordered By: Gerri Tejeda on 11-28-2024 Calcium [Mass/Vol] 9.2 mg/dL 7.6-11.0 [facility] Serum or plasma urea nitroge n measurement (mass/volume)Ordered By: Gerri Tejeda on 11-28-2024 Urea nitrogen [Mass/Vol] 18 mg/dL 4-19 [facility] Sodium levelOrdered By: Kaela Tejeda on 11-28-2024 Sodium [Moles/Vol] 141 mmol/L 133-145 [facility] Total proteinOrdered By: Mulu Tejeda on 11-28-2024 Protein [Mass/Vol] 6.5 g/dL 5.9-8.4 [facility] White blood cell (WBC) count Ordered By: Gerri Tejeda on 11-28-2024 WBC (Bld) [#/Vol] 4.8 10*3/uL 4.4-11.0 [facility] ACHR AB Modulatingon 025 ACHR AB MODULAT 13 Normal 0-45 [facility] Comment on above: Order Comment: Test( s) 246499-ZNvQ-vifkieecdz Abwas developed and its performance characteristicsdetermined by [employer] It has not been cleared or approvedby the Food and Drug Administration. Result Comment: Inte rpretive Information: Negative: 0 - 45% Positive: > 45%No single value for AChR-modulating antibody shouldbe used as a sole basis for diagnosis or responseto therapy. Performed By: #### L 3410.0100, L3300.0600, L3410.0200 ####[facility] [address] [place], [place], [id number] ACHR Hoisting Engineer Pile Driving AB, Blockingon ACHR INSERT OPERATOR AB 25 Normal 0-25 [facility] Comment on above: Order Comment: Test( s) [id number]-ALfN Blocking Abs, SerumThis test was developed and its performance characteristicsdetermined by [facility]. It has not been cleared orapproved by the Food and Drug Administration. Result Comment: Nega tive: 0 - 25 Borderline: 26 - 30 Positive: >30Performed at: [address] [id number] Director: Ava Jason MD, Phone: [phone] Performed By: #### L 3410.0100, L3300.0600, L3410.0200 ####[facility] [address] [place], [place], [address] Acetylcholine Receptoron ACHR AB < 0.07 Normal 0.00-0.24 [facility] Comment on above: Order Comment: Test( s) [id number]-FXeE Blocking Abs, SerumThis test was developed and its performance characteristicsdetermined by [facility]. It has not been cleared orapproved by the Food and Drug Administration.N Result Comment: Nega tive: 0.00 - 0.24 Borderline: 0.25 - 0.40 Positive: >0.40 Performed By: #### L 3410.0100, L3300.0600, L3410.0200 ####[facility] [address] [place], [place], [address] Pulmonary Visit Reporton Pulmonary Visit Report Normal [facility] Office Visit Reporton 2024 Office Visit Report Normal [facility] L/S Spine Min 4 Viewson 10-18 L/S Spine Min 4 Views Normal [facility] Serum acetylcholine receptor modulation antibody/total acetylcholine antibody ratio (Ordered By: Hoang Ugarte on 11-14-2024 Acetylcholine receptor modulation Ab/Acetylcholine Ab.total (S) [Molar fraction] 13 % 0-45 [facility] Comment on above: Interpretive Informa tion: Negative: 0 - 45% Positive: > 45%No single value for AChR-modulating antibody shouldbe used as a sole basis for diagnosis or responseto therapy. Office Visit Reporton 2024 Office Visit Report Normal [facility] Absolute lymphocyte countOrd ered By: Gerri Tejeda on 09-27-2024 Lymphocytes Auto (Unsp spec) [#/Vol] 0.92 10*3/uL 0.83-4.51 [facility] Absolute neutrophil countOrd ered By: Gerri Tejeda on 09-27-2024 Neutrophils (Bld) [#/Vol] 3.3 10*3/uL 2.0-7.7 [facility] Anion gap in Serum or Plasma Ordered By: Gerri Tejeda on 09-27-2024 Anion gap [Moles/Vol] 9 mmol/L 5-15 [facility] Automated lymphocyte count a s percentage of total leukocytesOrdered By: Gerri Tejeda on 09-27-2024 Lymphocytes/100 WBC Auto (Unsp spec) 18.7 % Low 19-41 [facility] BUN/creatinine ratioOrdered By: Gerri Tejeda on 09-27-2024 Urea nitrogen/Creatinine [Mass ratio] 12.7 mg/mg 10-20 [facility] Basophil percentageOrdered B y: Gerri Tejeda on 09-27-2024 Basophils/100 WBC (Bld) 0.8 % 0-1 [facility] Bilirubin, totalOrdered By: Gerri Tejeda on 09-27-2024 Bilirubin [Mass/Vol] 0.25 mg/dL 0.00-1.30 [facility] CBC W/Diff, Automatedon 09-16 Absolute Lymph 0.92 X10 3/uL Normal 0.83-4.51 [facility] Comment on above: Performed By: #### L 100.0100, L500.4050 ####[facility] [address] [place], [address] Absolute Neut 3.3 X10 3/uL Normal 2.0-7.7 [facility] Comment on above: Performed By: #### L 100.0100, L500.4050 ####[facility] [address] [place], [address] Basophils/100 WBC (Bld) 0.8 % Normal 0-1 [facility] Comment on above: Performed By: #### L 100.0100, L500.4050 ####[facility] [address] [place], [address] Eosinophils/100 WBC (Bld) 2.6 % Normal 0-5 [facility] Comment on above: Performed By: #### L 100.0100, L500.4050 ####[facility] [address] [place], [address] Erythrocyte distribution width (RBC) [Ratio] 13.0 % Normal 11.6-14.6 [facility] Comment on above: Performed By: #### L 100.0100, L500.4050 ####[facility] [address] [place], [address] Hematocrit (Bld) [Volume fraction] 37.5 % Normal 37-47 [facility] Comment on above: Performed By: #### L 100.0100, L500.4050 ####[facility] [address] [place], [address] Hemoglobin (Bld) [Mass/Vol] 12.0 g/dL Normal 12.0-15.0 [facility] Comment on above: Performed By: #### L 100.0100, L500.4050 ####[facility] [address] [place], [address] IG% 0.400 Normal 0.0-0.9 [facility] Comment on above: Result Comment: IG% - Immature Granulocytes (promyelocytes, myelocytes andmetamyelocytes) > 1% indicates that a LEFT SHIFT is Present. Performed By: #### L 100.0100, L500.4050 ####[facility] [address] [place], [address] Lymphocytes/100 WBC (Bld) 18.7 % Low 19-41 [facility] Comment on above: Performed By: #### L 100.0100, L500.4050 ####[facility] [address] [place], [address] MCH (RBC) [Entitic mass] 33.5 pg High 27.0-32.0 [facility] Comment on above: Performed By: #### L 100.0100, L500.4050 ####[facility] [address] [place], [address] MCHC (RBC) [Mass/Vol] 32.0 g/dL Normal 32-36 [facility] Comment on above: Performed By: #### L 100.0100, L500.4050 ####[facility] [address] [place], [address] MCV (RBC) [Entitic vol] 104.7 fL High 81-99 [facility] Comment on above: Performed By: #### L 100.0100, L500.4050 ####[facility] [address] [place], [address] Monocytes/100 WBC (Bld) 11.2 % High 0-10 [facility] Comment on above: Performed By: #### L 100.0100, L500.4050 ####[facility] [address] [place], [address] Neutrophils/100 WBC (Bld) 66.3 % Normal 47-70 [facility] Comment on above: Performed By: #### L 100.0100, L500.4050 ####[facility] [address] [place], [address] Nucleated RBC (Bld) [#/Vol] 0 10*3/uL Normal 0-5 [facility] Comment on above: Performed By: #### L 100.0100, L500.4050 ####[facility] [address] [place], [address] Platelet mean volume (Bld) [Entitic vol] 10.5 fL Normal 6.2-12.0 [facility] Comment on above: Performed By: #### L 100.0100, L500.4050 ####[facility] [address] [place], [address] Platelets (Bld) [#/Vol] 299 10*3/uL Normal 150-450 [facility] Comment on above: Performed By: #### L 100.0100, L500.4050 ####[facility] [address] [place], [address] RBC (Bld) [#/Vol] 3.58 10*6/uL Low 4.2-5.[address] [facility] Comment on above: Performed By: #### L 100.0100, L500.4050 ####[facility] [address] [place], [address] RDW SD 49.4 fl High 35.1-43.9 [facility] Comment on above: Performed By: #### L 100.0100, L500.4050 ####[facility] [address] [place], [address] WBC (Bld) [#/Vol] 4.9 10*3/uL Normal 4.4-11.0 [facility] Comment on above: Performed By: #### L 100.0100, L500.4050 ####[facility] [address] [place], [address] Carbon dioxide, total [Moles /volume] in Central venous bloodOrdered By: Gerri Tejeda on 09-27-2024 CO2 [Moles/Vol] 27.7 mmol/L 21.0-32.0 [facility] Chloride assayOrdered By: José Miguel Tejeda on 09-27-2024 Chloride [Moles/Vol] 107 mmol/L 98-108 [facility] Comprehensive Metabolic Prof ilon 09-27-2024 Albumin [Mass/Vol] 3.8 g/dL Normal 3.4-4.8 [facility] Comment on above: Performed By: #### L 100.0100, L500.4050 ####[facility] [address] [place], [address] Albumin/Globulin [Mass ratio] 1.5 {ratio} Normal 0.9-2.4 [facility] Comment on above: Performed By: #### L 100.0100, L500.4050 ####[facility] [address] [place], [address] ALK PHOS 57 U/L Normal 35-104 [facility] Comment on above: Performed By: #### L 100.0100, L500.4050 ####[facility] [address] [place], [address] ALT [Catalytic activity/Vol] 13 U/L Normal <=34 [facility] Comment on above: Performed By: #### L 100.0100, L500.4050 ####[facility] [address] [place], [address] AST [Catalytic activity/Vol] 22 U/L Normal <=31 [facility] Comment on above: Performed By: #### L 100.0100, L500.4050 ####[facility] [address] [place], [address] Bilirubin [Mass/Vol] 0.25 mg/dL Normal 0.00-1.30 [facility] Comment on above: Performed By: #### L 100.0100, L500.4050 ####[facility] [address] [place], [address] BUN/CRE 12.7 RATIO Normal 10-20 [facility] Comment on above: Performed By: #### L 100.0100, L500.4050 ####[facility] [address] [place], [address] Calcium [Mass/Vol] 9.2 mg/dL Normal 7.6-11.0 [facility] Comment on above: Performed By: #### L 100.0100, L500.4050 ####[facility] [address] [place], [address] Chloride [Moles/Vol] 107 mmol/L Normal 98-108 [facility] Comment on above: Performed By: #### L 100.0100, L500.4050 ####[facility] [address] [place], [address] CO2 [Moles/Vol] 27.7 mmol/L Normal 21.0-32.0 [facility] Comment on above: Performed By: #### L 100.0100, L500.4050 ####[facility] [address] [place], [address] Creatinine [Mass/Vol] 0.97 mg/dL Normal 0.70-1.20 [facility] Comment on above: Performed By: #### L 100.0100, L500.4050 ####[facility] [address] [place], [address] GAP 9 Normal 5-15 [facility] Comment on above: Performed By: #### L 100.0100, L500.4050 ####[facility] [address] [place], [address] GFR/1.73 sq M.predicted among non-blacks MDRD (S/P/Bld) [Vol rate/Area] 61 mL/min/{1.73_m2} Normal >60 [facility] Comment on above: Result Comment: mL/m in/1.73m2 CKD-EPI Creatinine Equation (2020) Performed By: #### L 100.0100, L500.4050 ####[facility] [address] [place], [address] Globulin (S) [Mass/Vol] 2.5 g/dL Normal 2.2-4.2 [facility] Comment on above: Performed By: #### L 100.0100, L500.4050 ####[facility] [address] [place], [address] Glucose [Mass/Vol] 93 mg/dL Normal 70-99 [facility] Comment on above: Performed By: #### L 100.0100, L500.4050 ####[facility] [address] [place], [address] Potassium [Moles/Vol] 4.1 mmol/L Normal 3.3-5.1 [facility] Comment on above: Performed By: #### L 100.0100, L500.4050 ####[facility] [address] [place], [address] Sodium [Moles/Vol] 143 mmol/L Normal 133-145 [facility] Comment on above: Performed By: #### L 100.0100, L500.4050 ####[facility] [address] [place], [address] T PROT 6.2 g/dL Normal 5.9-8.4 [facility] Comment on above: Performed By: #### L 100.0100, L500.4050 ####[facility] [address] [place], [place], [address] Urea nitrogen [Mass/Vol] 12 mg/dL Normal 4-19 [facility] Comment on above: Performed By: #### L 100.0100, L500.4050 ####[facility] [address] [place], [place], [id number] Eosinophil percentageOrdered By: Gerri Tejeda on 09-27-2024 Eosinophils/100 WBC (Bld) 2.6 % 0-5 [facility] Erythrocyte distribution wid th ratioOrdered By: Gerri Tejeda on 09-27-2024 Erythrocyte distribution width (RBC) [Ratio] 13.0 % 11.6-14.6 [facility] Erythrocyte distribution wid th standard deviationOrdered By: Gerri Tejeda on 09-27-2024 Erythrocyte distribution width (RBC) [Entitic vol] 49.4 fL High 35.1-43.9 [facility] Erythrocyte distribution width (RBC) [Ratio] 49.4 fl High 35.1-43.9 [facility] GFR/1.73 sq M.predicted jb g non-blacks MDRD (S/P/Bld) [Vol rate/Area]Ordered By: Gerri Tejeda on 09-27-2024 Estimated GFR (MDRD) Non-Af Amer 61 >60 [facility] Comment on above: mL/min/1.73m2 CKD-EP I Creatinine Equation (2020) Gastroenterology Visit Repor ton 09-27-2024 Gastroenterology Visit Report Normal [facility] Glomerular filtration rate ( GFR) estimation/1.73 sq m using serum, plasma, or whole bOrdered By: Gerri Tejeda on 09-27-2024 GFR/1.73 sq M.predicted among non-blacks MDRD (S/P/Bld) [Vol rate/Area] 61 mL/min/{1.73_m2} >60 [facility] Comment on above: mL/min/1.73m2 CKD-EP I Creatinine Equation (2020) Hematocrit Auto (Bld) [Volum e fraction]Ordered By: Gerri Tejeda on 09-27-2024 Hematocrit (Bld) [Volume fraction] 37.5 % 37-47 [facility] Hemoglobin measurementOrdere d By: Gerri Tejeda on 09-27-2024 Hemoglobin (Bld) [Mass/Vol] 12.0 g/dL 12.0-15.0 [facility] Immature granulocytes/100 WB C Auto (Bld)Ordered By: Gerri Tejeda on 09-27-2024 Immature granulocytes/100 WBC (Bld) 0.400 % 0.0-0.9 [facility] Comment on above: IG% - Immature Granu locytes (promyelocytes, myelocytes and metamyelocytes) > 1% indicates that a LEFT SHIFT is Present. Laboratory - Chemistry and C hemistry - challengeOrdered By: Gerri Tejeda on 09-27-2024 AST [Catalytic activity/Vol] 22 U/L <32 [facility] Lymphocytes Auto (Unsp spec) [#/Vol]Ordered By: Gerri Tejeda on 09-27-2024 Lymphocytes (Bld) [#/Vol] 0.92 10*3/uL 0.83-4.51 [facility] Lymphocytes/100 WBC Auto (Un sp spec)Ordered By: Gerri Tejeda on 09-27-2024 Lymphocytes/100 WBC (Bld) 18.7 % Low 19-41 [facility] MCV (mean corpuscular volume ) determinationOrdered By: Gerri Tejeda on 09-27-2024 MCV (RBC) [Entitic vol] 104.7 fL High 81-99 [facility] Mean corpuscular hemoglobin (MCH) determinationOrdered By: Gerri Tejeda on 09-27-2024 MCH (RBC) [Entitic mass] 33.5 pg High 27.0-32.0 [facility] Mean corpuscular hemoglobin concentration (MCHC) determinationOrdered By: Gerri Tejeda on 09-27-2024 MCHC (RBC) [Mass/Vol] 32.0 g/dL 32-36 [facility] Mean platelet volume determi nationOrdered By: Gerri Tejeda on 09-27-2024 Platelet mean volume (Bld) [Entitic vol] 10.5 fL 6.2-12.0 [facility] Monocyte percentageOrdered B y: Gerri Tejeda on 09-27-2024 Monocytes/100 WBC (Bld) 11.2 % High 0-10 [facility] Neutrophil percentageOrdered By: Gerri Tejeda on 09-27-2024 Neutrophils/100 WBC (Bld) 66.3 % 47-70 [facility] Nucleated red blood cell per centageOrdered By: Gerri Tejeda on 09-27-2024 Nucleated RBC/100 WBC (Bld) [Ratio] 0 % 0-5 [facility] Platelet countOrdered By: José Miguel Tejeda on 09-27-2024 Platelets (Bld) [#/Vol] 299 10*3/uL 150-450 [facility] Potassium (Unsp spec) [Mass/ Vol]Ordered By: Gerri Tejeda on 09-27-2024 Potassium [Moles/Vol] 4.1 mmol/L 3.3-5.1 [facility] Potassium measurement (mass/ volume)Ordered By: Gerri Tejeda on 09-27-2024 Potassium (Unsp spec) [Mass/Vol] 4.1 mmol/L 3.3-5.1 [facility] RBC Auto (Bld) [#/Vol]Ordere d By: Gerri Tejeda on 09-27-2024 RBC (Bld) [#/Vol] 3.58 10*6/uL Low 4.2-5.[address] [facility] Serum creatinine measurement (mass/volume)Ordered By: Gerri Tejeda on 09-27-2024 Creatinine [Mass/Vol] 0.97 mg/dL 0.70-1.20 [facility] Serum globulin measurementOr dered By: Gerri Tejeda on 09-27-2024 Globulin (S) [Mass/Vol] 2.5 g/dL 2.2-4.2 [facility] Serum glucose measurement (m ass/volume)Ordered By: Gerri Tejeda on 09-27-2024 Glucose [Mass/Vol] 93 mg/dL 70-99 [facility] Serum or plasma alanine cloud otransferase (ALT) measurementOrdered By: Gerri Tejeda on 09-27-2024 ALT [Catalytic activity/Vol] 13 U/L <35 [facility] Serum or plasma albumin leatha urement (mass/volume)Ordered By: Gerri Tejeda on 09-27-2024 Albumin [Mass/Vol] 3.8 g/dL 3.4-4.8 [facility] Serum or plasma albumin/glob ulin mass ratioOrdered By: Gerri Tejeda on 09-27-2024 Albumin/Globulin [Mass ratio] 1.5 {ratio} 0.9-2.4 [facility] Serum or plasma alkaline kunal sphatase measurementOrdered By: Gerri Tejeda on 09-27-2024 ALP [Catalytic activity/Vol] 57 U/L 35-104 [facility] Serum or plasma calcium leatha urement (mass/volume)Ordered By: Gerri Tejeda on 09-27-2024 Calcium [Mass/Vol] 9.2 mg/dL 7.6-11.0 [facility] Serum or plasma urea nitroge n measurement (mass/volume)Ordered By: Gerri Tejeda on 09-27-2024 Urea nitrogen [Mass/Vol] 12 mg/dL 4-19 [facility] Sodium levelOrdered By: Kaela Tejeda on 09-27-2024 Sodium [Moles/Vol] 143 mmol/L 133-145 [facility] Total proteinOrdered By: Mulu Tejeda on 09-27-2024 Protein [Mass/Vol] 6.2 g/dL 5.9-8.4 [facility] White blood cell (WBC) count Ordered By: Gerri Tejeda on 09-27-2024 WBC (Bld) [#/Vol] 4.9 10*3/uL 4.4-11.0 [facility] OT D/C Summaryon 09-20-2024 OT D/C Summary Normal [facility] OT D/C of Non Returning Pton 09-20-2024 OT D/C of Non Returning Pt [facility] Office Visit Reporton 2024 Office Visit Report Normal [facility] Re-Evalution OTon 08-10-2024 Re-Evalution OT Normal [facility] Dexa Bone Density Studyon Dexa Bone Density Study Normal [facility] HIP, UNI W/ Pelvis 2-3 Views on 07-31-2024 HIP, UNI W/ Pelvis 2-3 Views Normal [facility] Neurology Visit Reporton Neurology Visit Report Normal [facility] Colonoscopy Reporton 025 Colonoscopy Report Normal [facility] MR/POSTOP.ANEon 07-27-2024 MR/POSTOP.ANE Normal [facility] MR/[id number] 07-27-2024 MR/POSTOPAN2 Normal [facility] Surgery Specimen Level Pipe 07-27-2024 Surgery Specimen Level IV Normal [facility] Comment on above: Performed By: #### P SUIV ####[facility] [address] [place], [address] MR/PAT.ANEon 07-26-2024 MR/PAT.ANE Normal [facility] Re-Evalution OTon 07-20-2024 Re-Evalution OT Normal [facility] PT D/C Summary (1)on 024 PT D/C Summary (1) Normal [facility] Ferritinon 06-27-2024 Ferritin [Mass/Vol] 389 ng/mL High 8-[address] [facility] Comment on above: Performed By: #### L 503.6550, [id number] ####[facility] [address] [place], [place], [address] Ferritin measurementOrdered By: Carl Bourgeois on 06-27-2024 Ferritin [Mass/Vol] 389 ng/mL High 8-[address] [facility] Ironon 06-27-2024 Iron [Mass/Vol] 70 ug/dL Normal 50-170 [facility] Comment on above: Performed By: #### L 503.6550, [id number] ####[facility] [address] [place], [place], [address] Iron (Unsp spec) [Mass/Mass] Ordered By: Carl Bourgeois on 06-27-2024 Iron [Mass/Vol] 70 ug/dL 50-170 [facility] Office Visit Reporton 2023 Office Visit Report Normal [facility] SCRN MAMM (CAD)W/SARATH BILATo n 06-23-2024 SCRN MAMM (CAD)W/SARATH BILAT Normal [facility] Absolute neutrophil countOrd ered By: Gerri Tejeda on 06-21-2024 Neutrophils (Bld) [#/Vol] 3.4 10*3/uL 2.0-7.7 [facility] Albumin to globulin ratioOrd ered By: Gerri Tejeda on 06-21-2024 Albumin/Globulin [Mass ratio] 1.0 {ratio} 0.9-2.4 [facility] Basophil percentageOrdered B y: Gerri Tejeda on 06-21-2024 Basophils/100 WBC (Bld) 1.1 % High 0-1 [facility] Bilirubin, totalOrdered By: Gerripriscilla Tejeda on 06-21-2024 Bilirubin [Mass/Vol] 0.60 mg/dL 0.20-1.00 [facility] Comment on above: For patients on eltr ombopag therapy, use of Dimension [place] TBIL is not recommended. Blood urea nitrogen (BUN)/cr eatinine ratioOrdered By: Gerri Tejeda on 06-21-2024 Urea nitrogen/Creatinine [Mass ratio] 13.5 mg/mg 10-20 [facility] CBC W/Diff, Automatedon Absolute Lymph 1.51 X10 3/uL Normal 0.83-4.51 [facility] Comment on above: Performed By: #### L 100.0100, L500.4050 ####[facility] [address] [place], [address] Absolute Neut 3.4 X10 3/uL Normal 2.0-7.7 [facility] Comment on above: Performed By: #### L 100.0100, L500.4050 ####[facility] [address] [place], [address] Basophils/100 WBC (Bld) 1.1 % High 0-1 [facility] Comment on above: Performed By: #### L 100.0100, L500.4050 ####[facility] [address] [place], [address] Eosinophils/100 WBC (Bld) 1.8 % Normal 0-5 [facility] Comment on above: Performed By: #### L 100.0100, L500.4050 ####[facility] [address] [place], [address] Erythrocyte distribution width (RBC) [Ratio] 12.2 % Normal 11.6-14.6 [facility] Comment on above: Performed By: #### L 100.0100, L500.4050 ####[facility] [address] [place], [address] Hematocrit (Bld) [Volume fraction] 37.0 % Normal 37-47 [facility] Comment on above: Performed By: #### L 100.0100, L500.4050 ####[facility] [address] [place], [address] Hemoglobin (Bld) [Mass/Vol] 11.8 g/dL Low 12.0-15.0 [facility] Comment on above: Performed By: #### L 100.0100, L500.4050 ####[facility] [address] [place], [address] IG% 0.400 Normal 0.0-0.9 [facility] Comment on above: Result Comment: IG% - Immature Granulocytes (promyelocytes, myelocytes andmetamyelocytes) > 1% indicates that a LEFT SHIFT is Present. Performed By: #### L 100.0100, L500.4050 ####[facility] [address] [place], [address] Lymphocytes/100 WBC (Bld) 27.6 % Normal 19-41 [facility] Comment on above: Performed By: #### L 100.0100, L500.4050 ####[facility] [address] [place], [address] MCH (RBC) [Entitic mass] 32.5 pg High 27.0-32.0 [facility] Comment on above: Performed By: #### L 100.0100, L500.4050 ####[facility] [address] [place], [address] MCHC (RBC) [Mass/Vol] 31.9 g/dL Low 32-36 [facility] Comment on above: Performed By: #### L 100.0100, L500.4050 ####[facility] [address] [place], [address] MCV (RBC) [Entitic vol] 101.9 fL High 81-99 [facility] Comment on above: Performed By: #### L 100.0100, L500.4050 ####[facility] [address] [place], [address] Monocytes/100 WBC (Bld) 7.3 % Normal 0-10 [facility] Comment on above: Performed By: #### L 100.0100, L500.4050 ####[facility] [address] [place], [address] Neutrophils/100 WBC (Bld) 61.8 % Normal 47-70 [facility] Comment on above: Performed By: #### L 100.0100, L500.4050 ####[facility] [address] [place], [address] Nucleated RBC (Bld) [#/Vol] 0 10*3/uL Normal 0-5 [facility] Comment on above: Performed By: #### L 100.0100, L500.4050 ####[facility] [address] [place], [address] Platelet mean volume (Bld) [Entitic vol] 10.5 fL Normal 6.2-12.0 [facility] Comment on above: Performed By: #### L 100.0100, L500.4050 ####[facility] [address] [place], [address] Platelets (Bld) [#/Vol] 300 10*3/uL Normal 150-450 [facility] Comment on above: Performed By: #### L 100.0100, L500.4050 ####[facility] [address] [place], [address] RBC (Bld) [#/Vol] 3.63 10*6/uL Low 4.2-5.[address] [facility] Comment on above: Performed By: #### L 100.0100, L500.4050 ####[facility] [address] [place], [address] RDW SD 45.3 fl High 35.1-43.9 [facility] Comment on above: Performed By: #### L 100.0100, L500.4050 ####[facility] [address] [place], [address] WBC (Bld) [#/Vol] 5.5 10*3/uL Normal 4.4-11.0 [facility] Comment on above: Performed By: #### L 100.0100, L500.4050 ####[facility] [address] [place], [address] Carbon dioxide measurementOr dered By: Gerri Tejeda on 06-21-2024 CO2 [Moles/Vol] 30.0 mmol/L 21.0-32.0 [facility] Chloride measurementOrdered By: Gerri Tejeda on 06-21-2024 Chloride [Moles/Vol] 103 mmol/L 98-107 [facility] Comprehensive Metabolic Prof ilon 06-21-2024 Albumin [Mass/Vol] 3.3 g/dL Normal 3.2-5.0 [facility] Comment on above: Performed By: #### L 100.0100, L500.4050 ####[facility] [address] [place], [address] Albumin/Globulin [Mass ratio] 1.0 {ratio} Normal 0.9-2.4 [facility] Comment on above: Performed By: #### L 100.0100, L500.4050 ####[facility] [address] [place], [address] ALK P 47 U/L Normal 45-117 [facility] Comment on above: Performed By: #### L 100.0100, L500.4050 ####[facility] [address] [place], [address] ALT [Catalytic activity/Vol] 21 U/L Normal 13-56 [facility] Comment on above: Performed By: #### L 100.0100, L500.4050 ####[facility] [address] [place], [address] AST [Catalytic activity/Vol] 21 U/L Normal 15-37 [facility] Comment on above: Performed By: #### L 100.0100, L500.4050 ####[facility] [address] [place], [address] Bilirubin [Mass/Vol] 0.60 mg/dL Normal 0.20-1.00 [facility] Comment on above: Result Comment: For patients on eltrombopag therapy, use of Dimension [place] TBIL is not recommended. Performed By: #### L 100.0100, L500.4050 ####[facility] [address] [place], [address] BUN/CRE 13.5 RATIO Normal 10-20 [facility] Comment on above: Performed By: #### L 100.0100, L500.4050 ####[facility] [address] [place], [address] CA,Total 9.4 mg/dL Normal 8.5-10.1 [facility] Comment on above: Performed By: #### L 100.0100, L500.4050 ####[facility] [address] [place], [address] Chloride [Moles/Vol] 103 mmol/L Normal 98-107 [facility] Comment on above: Performed By: #### L 100.0100, L500.4050 ####[facility] [address] [place], [address] CO2 [Moles/Vol] 30.0 mmol/L Normal 21.0-32.0 [facility] Comment on above: Performed By: #### L 100.0100, L500.4050 ####[facility] [address] [place], [address] Creatinine [Mass/Vol] 1.04 mg/dL High 0.55-1.02 [facility] Comment on above: Result Comment: The validity of the calculated GFR GFRAA in patients over70 years has not been determined. Clinical correlation isessential. Performed By: #### L 100.0100, L500.4050 ####[facility] [address] [place], [address] EST GFR - AA 67 mL/min Normal >60 [facility] Comment on above: Result Comment: Afri can [place] GFR Calc Performed By: #### L 100.0100, L500.4050 ####[facility] [address] [place], [address] GAP 7 Normal 5-15 [facility] Comment on above: Performed By: #### L 100.0100, L500.4050 ####[facility] [address] [place], [address] GFR/1.73 sq M.predicted among non-blacks MDRD (S/P/Bld) [Vol rate/Area] 55 mL/min/{1.73_m2} Low >60 [facility] Comment on above: Result Comment: Non- GFR Calc Performed By: #### L 100.0100, L500.4050 ####[facility] [address] [place], [address] Globulin (S) [Mass/Vol] 3.4 g/dL Normal 2.2-4.2 [facility] Comment on above: Performed By: #### L 100.0100, L500.4050 ####[facility] [address] [place], [address] Glucose [Mass/Vol] 86 mg/dL Normal 74-106 [facility] Comment on above: Performed By: #### L 100.0100, L500.4050 ####[facility] [address] [place], [address] Potassium [Moles/Vol] 3.8 mmol/L Normal 3.5-5.1 [facility] Comment on above: Performed By: #### L 100.0100, L500.4050 ####[facility] [address] [place], [address] Sodium [Moles/Vol] 140 mmol/L Normal 136-145 [facility] Comment on above: Performed By: #### L 100.0100, L500.4050 ####[facility] [address] [place], [address] T PROT 6.7 g/dL Normal 6.4-8.2 [facility] Comment on above: Performed By: #### L 100.0100, L500.4050 ####[facility] [address] [place], [address] Urea nitrogen [Mass/Vol] 14 mg/dL Normal 7-18 [facility] Comment on above: Performed By: #### L 100.0100, L500.4050 ####[facility] [address] [place], [address] Eosinophil percentageOrdered By: Gerri Tejeda on 06-21-2024 Eosinophils/100 WBC (Bld) 1.8 % 0-5 [facility] Erythrocyte distribution wid th ratioOrdered By: Gerri Tejeda on 06-21-2024 Erythrocyte distribution width (RBC) [Ratio] 12.2 % 11.6-14.6 [facility] Erythrocyte distribution wid th standard deviationOrdered By: Gerri Tejeda on 06-21-2024 Erythrocyte distribution width (RBC) [Entitic vol] 45.3 fL High 35.1-43.9 [facility] Estimated glomerular filtrat ion rate (GFR) AmericanOrdered By: Gerri Tejeda on 06-21-2024 Estimated GFR (MDRD) Amer 67 mL/min >60 [facility] Comment on above: GFR Calc Glomerular filtration rate ( GFR) estimationOrdered By: Gerri Tejeda on 06-21-2024 Estimated GFR (MDRD) Non-Af Amer 55 mL/min Low >60 [facility] Comment on above: Non- GFR Calc Glucose measurementOrdered B y: Greri Tejeda on 06-21-2024 Glucose [Mass/Vol] 86 mg/dL 74-106 [facility] Hematocrit Auto (Bld) [Volum e fraction]Ordered By: Gerri Tejeda on 06-21-2024 Hematocrit (Bld) [Volume fraction] 37.0 % 37-47 [facility] Hemoglobin measurementOrdere d By: Gerri Tejeda on 06-21-2024 Hemoglobin (Bld) [Mass/Vol] 11.8 g/dL Low 12.0-15.0 [facility] Immature granulocytes/100 WB C Auto (Bld)Ordered By: Gerri Tejeda on 06-21-2024 Immature granulocytes/100 WBC (Bld) 0.400 % 0.0-0.9 [facility] Comment on above: IG% - Immature Granu locytes (promyelocytes, myelocytes and metamyelocytes) > 1% indicates that a LEFT SHIFT is Present. Laboratory - Chemistry and C hemistry - challengeOrdered By: Gerri Tejeda on 06-21-2024 AST [Catalytic activity/Vol] 21 U/L 15-37 [facility] Lymphocytes Auto (Unsp spec) [#/Vol]Ordered By: Gerri Tejeda on 06-21-2024 Lymphocytes (Bld) [#/Vol] 1.51 10*3/uL 0.83-4.51 [facility] Lymphocytes/100 WBC Auto (Un sp spec)Ordered By: Gerri Tejeda on 06-21-2024 Lymphocytes/100 WBC (Bld) 27.6 % 19-41 [facility] MCV (mean corpuscular volume ) determinationOrdered By: Gerri Tejeda on 06-21-2024 MCV (RBC) [Entitic vol] 101.9 fL High 81-99 [facility] Mean corpuscular hemoglobin (MCH) determinationOrdered By: Gerri Tejeda on 06-21-2024 MCH (RBC) [Entitic mass] 32.5 pg High 27.0-32.0 [facility] Mean corpuscular hemoglobin concentration (MCHC) determinationOrdered By: Gerri Tejeda on 06-21-2024 MCHC (RBC) [Mass/Vol] 31.9 g/dL Low 32-36 [facility] Mean platelet volume determi nationOrdered By: Gerri Tejeda on 06-21-2024 Platelet mean volume (Bld) [Entitic vol] 10.5 fL 6.2-12.0 [facility] Monocyte percentageOrdered B y: Gerri Tejeda on 06-21-2024 Monocytes/100 WBC (Bld) 7.3 % 0-10 [facility] Neutrophil percentageOrdered By: Gerri Tejeda on 06-21-2024 Neutrophils/100 WBC (Bld) 61.8 % 47-70 [facility] Nucleated red blood cell per centageOrdered By: Gerri Tejeda on 06-21-2024 Nucleated RBC/100 WBC (Bld) [Ratio] 0 % 0-5 [facility] Platelet countOrdered By: José Miguel Tejeda on 06-21-2024 Platelets (Bld) [#/Vol] 300 10*3/uL 150-450 [facility] Potassium measurementOrdered By: Gerri Tejeda on 06-21-2024 Potassium [Moles/Vol] 3.8 mmol/L 3.5-5.1 [facility] RBC Auto (Bld) [#/Vol]Ordere d By: Gerri Tejeda on 06-21-2024 RBC (Bld) [#/Vol] 3.63 10*6/uL Low 4.2-5.[address] [facility] Serum anion gap measurementO rdered By: Gerri Tejeda on 06-21-2024 Anion gap [Moles/Vol] 7 mmol/L 5-15 [facility] Serum globulin measurementOr dered By: Gerri Tejeda on 06-21-2024 Globulin (S) [Mass/Vol] 3.4 g/dL 2.2-4.2 [facility] Serum or plasma alanine cloud otransferase (ALT) measurementOrdered By: Gerri Tejeda on 06-21-2024 ALT [Catalytic activity/Vol] 21 U/L 13-56 [facility] Serum or plasma albumin leatha urement (mass/volume)Ordered By: Gerri Tejeda on 06-21-2024 Albumin [Mass/Vol] 3.3 g/dL 3.2-5.0 [facility] Serum or plasma alkaline kunal sphatase measurementOrdered By: Gerri Tejeda on 06-21-2024 ALP [Catalytic activity/Vol] 47 U/L 45-117 [facility] Serum or plasma calcium leatha urement (mass/volume)Ordered By: Gerri Tejeda on 06-21-2024 Calcium [Mass/Vol] 9.4 mg/dL 8.5-10.1 [facility] Serum or plasma creatinine m easurement (mass/volume)Ordered By: Gerri Tejeda on 06-21-2024 Creatinine [Mass/Vol] 1.04 mg/dL High 0.55-1.02 [facility] Comment on above: The validity of the calculated GFR & GFRAA in patients over 70 years has not been determined. Clinical correlation is essential. Serum or plasma urea nitroge n measurement (mass/volume)Ordered By: Gerri Tejeda on 06-21-2024 Urea nitrogen [Mass/Vol] 14 mg/dL 7-18 [facility] Sodium levelOrdered By: Kaela Tejeda on 06-21-2024 Sodium [Moles/Vol] 140 mmol/L 136-145 [facility] Total proteinOrdered By: Mulu Tejeda on 06-21-2024 Protein [Mass/Vol] 6.7 g/dL 6.4-8.2 [facility] White blood cell (WBC) count Ordered By: Gerri Tejeda on 06-21-2024 WBC (Bld) [#/Vol] 5.5 10*3/uL 4.4-11.0 [facility] Inital Evaluation (1) - PTon 06-14-2024 Inital Evaluation (1) - PT Normal [facility] OT General Evaluationon 05-19 OT General Evaluation Normal [facility] Hand Min 3 Viewson 4 Hand Min 3 Views Normal [facility] Orthopedic Visit Reporton Orthopedic Visit Report Normal [facility] Pulmonary Visit Reporton Pulmonary Visit Report Normal [facility] Office Visit Reporton 2023 Office Visit Report Normal [facility] Hand Min 3 Viewson 4 Hand Min 3 Views Normal [facility] Orthopedic Visit Reporton Orthopedic Visit Report Normal [facility] Hand Min 3 Viewson 4 Hand Min 3 Views Normal [facility] Orthopedic Visit Reporton Orthopedic Visit Report Normal [facility] Office Visit Reporton 2023 Office Visit Report Normal [facility] Orthopedic Visit Reporton Orthopedic Visit Report Normal [facility] Emergency Department Summary on 04-09-2024 Emergency Department Summary Normal [facility] Hand Min 3 Viewson 4 Hand Min 3 Views Normal [facility] Neurology Visit Reporton Neurology Visit Report Normal [facility] CBC W/Diff, Automatedon 09-0 Absolute Lymph 1.03 X10 3/uL Normal 0.83-4.51 [facility] Comment on above: Performed By: #### L 100.0100, L500.4050 ####[facility] [address] [place], [address] Absolute Neut 3.5 X10 3/uL Normal 2.0-7.7 [facility] Comment on above: Performed By: #### L 100.0100, L500.4050 ####[facility] [address] [place], [address] Basophils/100 WBC (Bld) 1.2 % High 0-1 [facility] Comment on above: Performed By: #### L 100.0100, L500.4050 ####[facility] [address] [place], [address] Eosinophils/100 WBC (Bld) 2.0 % Normal 0-5 [facility] Comment on above: Performed By: #### L 100.0100, L500.4050 ####[facility] [address] [place], [address] Erythrocyte distribution width (RBC) [Ratio] 12.7 % Normal 11.6-14.6 [facility] Comment on above: Performed By: #### L 100.0100, L500.4050 ####[facility] [address] [place], [address] Hematocrit (Bld) [Volume fraction] 38.1 % Normal 37-47 [facility] Comment on above: Performed By: #### L 100.0100, L500.4050 ####[facility] [address] [place], [address] Hemoglobin (Bld) [Mass/Vol] 12.1 g/dL Normal 12.0-15.0 [facility] Comment on above: Performed By: #### L 100.0100, L500.4050 ####[facility] [address] [place], [address] IG% 0.400 Normal 0.0-0.9 [facility] Comment on above: Result Comment: IG% - Immature Granulocytes (promyelocytes, myelocytes andmetamyelocytes) > 1% indicates that a LEFT SHIFT is Present. Performed By: #### L 100.0100, L500.4050 ####[facility] [address] [place], [address] Lymphocytes/100 WBC (Bld) 20.2 % Normal 19-41 [facility] Comment on above: Performed By: #### L 100.0100, L500.4050 ####[facility] [address] [place], [address] MCH (RBC) [Entitic mass] 32.7 pg High 27.0-32.0 [facility] Comment on above: Performed By: #### L 100.0100, L500.4050 ####[facility] [address] [place], [address] MCHC (RBC) [Mass/Vol] 31.8 g/dL Low 32-36 [facility] Comment on above: Performed By: #### L 100.0100, L500.4050 ####[facility] [address] [place], [address] MCV (RBC) [Entitic vol] 103.0 fL High 81-99 [facility] Comment on above: Performed By: #### L 100.0100, L500.4050 ####[facility] [address] [place], [address] Monocytes/100 WBC (Bld) 7.8 % Normal 0-10 [facility] Comment on above: Performed By: #### L 100.0100, L500.4050 ####[facility] [address] [place], [address] Neutrophils/100 WBC (Bld) 68.4 % Normal 47-70 [facility] Comment on above: Performed By: #### L 100.0100, L500.4050 ####[facility] [address] [place], [address] Nucleated RBC (Bld) [#/Vol] 0 10*3/uL Normal 0-5 [facility] Comment on above: Performed By: #### L 100.0100, L500.4050 ####[facility] [address] [place], [address] Platelet mean volume (Bld) [Entitic vol] 11.0 fL Normal 6.2-12.0 [facility] Comment on above: Performed By: #### L 100.0100, L500.4050 ####[facility] [address] [place], [address] Platelets (Bld) [#/Vol] 264 10*3/uL Normal 150-450 [facility] Comment on above: Performed By: #### L 100.0100, L500.4050 ####[facility] [address] [place], [address] RBC (Bld) [#/Vol] 3.70 10*6/uL Low 4.2-5.[address] [facility] Comment on above: Performed By: #### L 100.0100, L500.4050 ####[facility] [address] [place], [address] RDW SD 48.2 fl High 35.1-43.9 [facility] Comment on above: Performed By: #### L 100.0100, L500.4050 ####[facility] [address] [place], [address] WBC (Bld) [#/Vol] 5.1 10*3/uL Normal 4.4-11.0 [facility] Comment on above: Performed By: #### L 100.0100, L500.4050 ####[facility] [address] [place], [address] Comprehensive Metabolic Prof ilon 03-27-2024 Albumin [Mass/Vol] 3.3 g/dL Normal 3.2-5.0 [facility] Comment on above: Performed By: #### L 100.0100, L500.4050 ####[facility] [address] [place], [address] Albumin/Globulin [Mass ratio] 1.1 {ratio} Normal 0.9-2.4 [facility] Comment on above: Performed By: #### L 100.0100, L500.4050 ####[facility] [address] [place], [address] ALK P 43 U/L Low 45-117 [facility] Comment on above: Performed By: #### L 100.0100, L500.4050 ####[facility] [address] [place], [address] ALT [Catalytic activity/Vol] 19 U/L Normal 13-56 [facility] Comment on above: Performed By: #### L 100.0100, L500.4050 ####[facility] [address] [place], [address] AST [Catalytic activity/Vol] 22 U/L Normal 15-37 [facility] Comment on above: Performed By: #### L 100.0100, L500.4050 ####[facility] [address] [place], [address] Bilirubin [Mass/Vol] 0.40 mg/dL Normal 0.20-1.00 [facility] Comment on above: Result Comment: For patients on eltrombopag therapy, use of Dimension [place] TBIL is not recommended. Performed By: #### L 100.0100, L500.4050 ####[facility] [address] [place], [address] BUN/CRE 12.7 RATIO Normal 10-20 [facility] Comment on above: Performed By: #### L 100.0100, L500.4050 ####[facility] [address] [place], [address] CA,Total 9.4 mg/dL Normal 8.5-10.1 [facility] Comment on above: Performed By: #### L 100.0100, L500.4050 ####[facility] [address] [place], [address] Chloride [Moles/Vol] 106 mmol/L Normal 98-107 [facility] Comment on above: Performed By: #### L 100.0100, L500.4050 ####[facility] [address] [place], [address] CO2 [Moles/Vol] 29.0 mmol/L Normal 21.0-32.0 [facility] Comment on above: Performed By: #### L 100.0100, L500.4050 ####[facility] [address] [place], [address] Creatinine [Mass/Vol] 1.02 mg/dL Normal 0.55-1.02 [facility] Comment on above: Result Comment: The validity of the calculated GFR GFRAA in patients over70 years has not been determined. Clinical correlation isessential. Performed By: #### L 100.0100, L500.4050 ####[facility] [address] [place], [address] EST GFR - AA 68 mL/min Normal >60 [facility] Comment on above: Result Comment: Afri can [place] GFR Calc Performed By: #### L 100.0100, L500.4050 ####[facility] [address] [place], [address] GAP 5 Normal 5-15 [facility] Comment on above: Performed By: #### L 100.0100, L500.4050 ####[facility] [address] [place], [address] GFR/1.73 sq M.predicted among non-blacks MDRD (S/P/Bld) [Vol rate/Area] 56 mL/min/{1.73_m2} Low >60 [facility] Comment on above: Result Comment: Non- GFR Calc Performed By: #### L 100.0100, L500.4050 ####[facility] [address] [place], [address] Globulin (S) [Mass/Vol] 3.1 g/dL Normal 2.2-4.2 [facility] Comment on above: Performed By: #### L 100.0100, L500.4050 ####[facility] [address] [place], [address] Glucose [Mass/Vol] 126 mg/dL High 74-106 [facility] Comment on above: Result Comment: Fast ing Glucose result greater than or equal to 126 mg/dLsuggests DIABETES MELLITUS per A.D.A. criteria. Performed By: #### L 100.0100, L500.4050 ####[facility] [address] [place], [address] Potassium [Moles/Vol] 3.8 mmol/L Normal 3.5-5.1 [facility] Comment on above: Performed By: #### L 100.0100, L500.4050 ####[facility] [address] [place], [address] Sodium [Moles/Vol] 140 mmol/L Normal 136-145 [facility] Comment on above: Performed By: #### L 100.0100, L500.4050 ####[facility] [address] [place], [address] T PROT 6.4 g/dL Normal 6.4-8.2 [facility] Comment on above: Performed By: #### L 100.0100, L500.4050 ####[facility] [address] [place], [address] Urea nitrogen [Mass/Vol] 13 mg/dL Normal 7-18 [facility] Comment on above: Performed By: #### L 100.0100, L500.4050 ####[facility] [address] [place], [address] Office Visit Reporton 2023 Office Visit Report Normal [facility] Office Visit Reporton 2023 Office Visit Report Normal [facility] Office Visit Reporton 2023 Office Visit Report Normal [facility] CBC W/Diff, Automatedon 12-17 Absolute Lymph 1.38 X10 3/uL Normal 0.83-4.51 [facility] Comment on above: Performed By: #### L 500.4050, L100.0100 ####[facility] [address] [place], [address] Absolute Neut 2.6 X10 3/uL Normal 2.0-7.7 [facility] Comment on above: Performed By: #### L 500.4050, L100.0100 ####[facility] [address] [place], [address] Basophils/100 WBC (Bld) 0.9 % Normal 0-1 [facility] Comment on above: Performed By: #### L 500.4050, L100.0100 ####[facility] [address] [place], [address] Eosinophils/100 WBC (Bld) 2.6 % Normal 0-5 [facility] Comment on above: Performed By: #### L 500.4050, L100.0100 ####[facility] [address] [place], [address] Erythrocyte distribution width (RBC) [Ratio] 13.0 % Normal 11.6-14.6 [facility] Comment on above: Performed By: #### L 500.4050, L100.0100 ####[facility] [address] [place], [address] Hematocrit (Bld) [Volume fraction] 38.2 % Normal 37-47 [facility] Comment on above: Performed By: #### L 500.4050, L100.0100 ####[facility] [address] [place], [address] Hemoglobin (Bld) [Mass/Vol] 12.0 g/dL Normal 12.0-15.0 [facility] Comment on above: Performed By: #### L 500.4050, L100.0100 ####[facility] [address] [place], [address] IG% 0.200 Normal 0.0-0.9 [facility] Comment on above: Result Comment: IG% - Immature Granulocytes (promyelocytes, myelocytes andmetamyelocytes) > 1% indicates that a LEFT SHIFT is Present. Performed By: #### L 500.4050, L100.0100 ####[facility] [address] [place], [address] Lymphocytes/100 WBC (Bld) 30.4 % Normal 19-41 [facility] Comment on above: Performed By: #### L 500.4050, L100.0100 ####[facility] [address] [place], [address] MCH (RBC) [Entitic mass] 32.3 pg High 27.0-32.0 [facility] Comment on above: Performed By: #### L 500.4050, L100.0100 ####[facility] [address] [place], [address] MCHC (RBC) [Mass/Vol] 31.4 g/dL Low 32-36 [facility] Comment on above: Performed By: #### L 500.4050, L100.0100 ####[facility] [address] [place], [address] MCV (RBC) [Entitic vol] 103.0 fL High 81-99 [facility] Comment on above: Performed By: #### L 500.4050, L100.0100 ####[facility] [address] [place], [address] Monocytes/100 WBC (Bld) 9.0 % Normal 0-10 [facility] Comment on above: Performed By: #### L 500.4050, L100.0100 ####[facility] [address] [place], [address] Neutrophils/100 WBC (Bld) 56.9 % Normal 47-70 [facility] Comment on above: Performed By: #### L 500.4050, L100.0100 ####[facility] [address] [place], [address] Nucleated RBC (Bld) [#/Vol] 0 10*3/uL Normal 0-5 [facility] Comment on above: Performed By: #### L 500.4050, L100.0100 ####[facility] [address] [place], [address] Platelet mean volume (Bld) [Entitic vol] 11.0 fL Normal 6.2-12.0 [facility] Comment on above: Performed By: #### L 500.4050, L100.0100 ####[facility] [address] [place], [address] Platelets (Bld) [#/Vol] 299 10*3/uL Normal 150-450 [facility] Comment on above: Performed By: #### L 500.4050, L100.0100 ####[facility] [address] [place], [address] RBC (Bld) [#/Vol] 3.71 10*6/uL Low 4.2-5.[address] [facility] Comment on above: Performed By: #### L 500.4050, L100.0100 ####[facility] [address] [place], [address] RDW SD 48.1 fl High 35.1-43.9 [facility] Comment on above: Performed By: #### L 500.4050, L100.0100 ####[facility] [address] [place], [address] WBC (Bld) [#/Vol] 4.5 10*3/uL Normal 4.4-11.0 [facility] Comment on above: Performed By: #### L 500.4050, L100.0100 ####[facility] [address] [place], [address] Comprehensive Metabolic Prof [facility] 12-31-2023 Albumin [Mass/Vol] 3.5 g/dL Normal 3.2-5.0 [facility] Comment on above: Performed By: #### L 500.4050, L100.0100 ####[facility] [address] [place], [address] Albumin/Globulin [Mass ratio] 1.0 {ratio} Normal 0.9-2.4 [facility] Comment on above: Performed By: #### L 500.4050, L100.0100 ####[facility] [address] [place], [address] ALK P 54 U/L Normal 45-117 [facility] Comment on above: Performed By: #### L 500.4050, L100.0100 ####[facility] [address] [place], [address] ALT [Catalytic activity/Vol] 24 U/L Normal 13-56 [facility] Comment on above: Performed By: #### L 500.4050, L100.0100 ####[facility] [address] [place], [address] AST [Catalytic activity/Vol] 24 U/L Normal 15-37 [facility] Comment on above: Performed By: #### L 500.4050, L100.0100 ####[facility] [address] [place], [address] Bilirubin [Mass/Vol] 0.40 mg/dL Normal 0.20-1.00 [facility] Comment on above: Result Comment: For patients on eltrombopag therapy, use of Dimension [place] TBIL is not recommended. Performed By: #### L 500.4050, L100.0100 ####[facility] [address] [place], [address] BUN/CRE 14.2 RATIO Normal 10-20 [facility] Comment on above: Performed By: #### L 500.4050, L100.0100 ####[facility] [address] [place], [address] CA,Total 9.3 mg/dL Normal 8.5-10.1 [facility] Comment on above: Performed By: #### L 500.4050, L100.0100 ####[facility] [address] [place], [address] Chloride [Moles/Vol] 104 mmol/L Normal 98-107 [facility] Comment on above: Performed By: #### L 500.4050, L100.0100 ####[facility] [address] [place], [address] CO2 [Moles/Vol] 31.0 mmol/L Normal 21.0-32.0 [facility] Comment on above: Performed By: #### L 500.4050, L100.0100 ####[facility] [address] [place], [address] Creatinine [Mass/Vol] 0.98 mg/dL Normal 0.55-1.02 [facility] Comment on above: Result Comment: The validity of the calculated GFR GFRAA in patients over70 years has not been determined. Clinical correlation isessential. Performed By: #### L 500.4050, L100.0100 ####[facility] [address] [place], [address] EST GFR - AA 71 mL/min Normal >60 [facility] Comment on above: Result Comment: Afri can [place] GFR Calc Performed By: #### L 500.4050, L100.0100 ####[facility] [address] [place], [address] GAP 7 Normal 5-15 [facility] Comment on above: Performed By: #### L 500.4050, L100.0100 ####[facility] [address] [place], [address] GFR/1.73 sq M.predicted among non-blacks MDRD (S/P/Bld) [Vol rate/Area] 59 mL/min/{1.73_m2} Low >60 [facility] Comment on above: Result Comment: Non- GFR Calc Performed By: #### L 500.4050, L100.0100 ####[facility] [address] [place], [address] Globulin (S) [Mass/Vol] 3.4 g/dL Normal 2.2-4.2 [facility] Comment on above: Performed By: #### L 500.4050, L100.0100 ####[facility] [address] [place], [address] Glucose [Mass/Vol] 134 mg/dL High 74-106 [facility] Comment on above: Result Comment: Fast ing Glucose result greater than or equal to 126 mg/dLsuggests DIABETES MELLITUS per A.D.A. criteria. Performed By: #### L 500.4050, L100.0100 ####[facility] [address] [place], [address] Potassium [Moles/Vol] 3.5 mmol/L Normal 3.5-5.1 [facility] Comment on above: Performed By: #### L 500.4050, L100.0100 ####[facility] [address] [place], [address] Sodium [Moles/Vol] 142 mmol/L Normal 136-145 [facility] Comment on above: Performed By: #### L 500.4050, L100.0100 ####[facility] [address] [place], [address] T PROT 6.9 g/dL Normal 6.4-8.2 [facility] Comment on above: Performed By: #### L 500.4050, L100.0100 ####[facility] [address] [place], [address] Urea nitrogen [Mass/Vol] 14 mg/dL Normal 7-18 [facility] Comment on above: Performed By: #### L 500.4050, L100.0100 ####[facility] [address] [place], [address] Absolute lymphocyte countOrd ered By: Gerri Tejeda on 10-08-2023 Lymphocytes Auto (Unsp spec) [#/Vol] 2.23 10*3/uL 0.83-4.51 [facility] Automated lymphocyte count a s percentage of total leukocytesOrdered By: Gerri Tejeda on 10-08-2023 Lymphocytes/100 WBC Auto (Unsp spec) 30.5 % 19-41 [facility] Basophil percentageOrdered B y: Gerri Tejeda on 10-08-2023 Basophils/100 WBC (Bld) 1.1 % 0-1 [facility] Bilirubin [Mass/Vol] 0.60 mg/dL 0.20-1.00 [facility] Comment on above: For patients on eltr ombopag therapy, use of Dimension [place] TBIL is not recommended. Chloride [Moles/Vol] 105 mmol/L 98-107 [facility] Eosinophils/100 WBC (Bld) 2.5 % 0-5 [facility] Glucose [Mass/Vol] 87 mg/dL 74-106 [facility] Hemoglobin (Bld) [Mass/Vol] 12.3 g/dL 12.0-15.0 [facility] Monocytes/100 WBC (Bld) 9.3 % 0-10 [facility] Neutrophils (Bld) [#/Vol] 4.1 10*3/uL 2.0-7.7 [facility] Neutrophils/100 WBC (Bld) 55.8 % 47-70 [facility] Potassium [Moles/Vol] 3.9 mmol/L 3.5-5.1 [facility] Protein [Mass/Vol] 7.0 g/dL 6.4-8.2 [facility] Sodium [Moles/Vol] 140 mmol/L 136-145 [facility] WBC (Bld) [#/Vol] 7.3 10*3/uL 4.4-11.0 [facility] Determination of erythrocyte mean corpuscular volume (MCV)Ordered By: Gerri Tejeda on 10-08-2023 MCV (RBC) [Entitic vol] 101.9 fL 81-99 [facility] Erythrocyte distribution wid th ratioOrdered By: Gerri Ileana on 10-08-2023 Erythrocyte distribution width (RBC) [Ratio] 12.9 % 11.6-14.6 [facility] Erythrocyte distribution wid th standard deviationOrdered By: [facility] on 10-08-2023 Erythrocyte distribution width (RBC) [Entitic vol] 47.7 fL 35.1-43.9 [facility] Hematocrit Auto (Bld) [Volum e fraction]Ordered By: Gerri Tejeda on 10-08-2023 Hematocrit (Bld) [Volume fraction] 38.2 % 37-47 [facility] Immature granulocytes/100 WB C Auto (Bld)Ordered By: Gerri Tejeda on 10-08-2023 Immature granulocytes/100 WBC (Bld) 0.800 % 0.0-0.9 [facility] Comment on above: IG% - Immature Granu locytes (promyelocytes, myelocytes and metamyelocytes) > 1% indicates that a LEFT SHIFT is Present. Laboratory - Chemistry and C hemistry - challengeOrdered By: Gerri Tejeda on 10-08-2023 Albumin/Globulin [Mass ratio] 0.9 {ratio} 0.9-2.4 [facility] ALP [Catalytic activity/Vol] 63 U/L 45-117 [facility] ALT [Catalytic activity/Vol] 23 U/L 13-56 [facility] CO2 [Moles/Vol] 32.0 mmol/L 21.0-32.0 [facility] Globulin (S) [Mass/Vol] 3.7 g/dL 2.2-4.2 [facility] Urea nitrogen/Creatinine [Mass ratio] 13.3 mg/mg 10-20 [facility] Laboratory - Hematology and Cell countsOrdered By: Gerri Tejeda on 10-08-2023 MCH (RBC) [Entitic mass] 32.8 pg 27.0-32.0 [facility] MCHC (RBC) [Mass/Vol] 32.2 g/dL 32-36 [facility] Nucleated RBC/100 WBC (Bld) [Ratio] 0 % 0-5 [facility] Platelet mean volume (Bld) [Entitic vol] 10.7 fL 6.2-12.0 [facility] Platelets (Bld) [#/Vol] 388 10*3/uL 150-450 [facility] No Panel InformationOrdered By: Gerri Tejeda on 10-08-2023 Estimated GFR (MDRD) Amer 61 mL/min >60 [facility] Comment on above: GFR Calc Estimated GFR (MDRD) Non-Af Amer 50 mL/min >60 [facility] Comment on above: Non- GFR Calc RBC Auto (Bld) [#/Vol]Ordere d By: Gerri Tejeda on 10-08-2023 RBC (Bld) [#/Vol] 3.75 10*6/uL 4.2-5.4 [facility] Serum or plasma calcium leatha urement (mass/volume)Ordered By: Gerri Tejeda on 10-08-2023 Calcium [Mass/Vol] 9.4 mg/dL 8.5-10.1 [facility] Serum or plasma creatinine m easurement (mass/volume)Ordered By: Gerri Tejeda on 10-08-2023 Creatinine [Mass/Vol] 1.13 mg/dL 0.55-1.02 [facility] Comment on above: The validity of the calculated GFR & GFRAA in patients over 70 years has not been determined. Clinical correlation is essential. Serum or plasma urea nitroge n measurement (mass/volume)Ordered By: Gerri Tejeda on 10-08-2023 Urea nitrogen [Mass/Vol] 15 mg/dL 7-18 [facility] Thin prep Papanicolaou smear with manual screeningOrdered By: Gerri Tejeda on 10-08-2023 Thin prep Papanicolaou smear with manual screening 3.3 g/dL 3.2-5.0 [facility] Thin prep Papanicolaou smear with manual screening 27 U/L 15-37 [facility] Thin prep Papanicolaou smear with manual screening 3 5-15 [facility] Absolute lymphocyte countOrd ered By: Gerri Tejeda on 07-21-2023 Lymphocytes Auto (Unsp spec) [#/Vol] 0.90 10*3/uL 0.83-4.51 [facility] Basophil percentageOrdered B y: Gerri Tejeda on 07-21-2023 Basophils/100 WBC (Bld) 1.4 % 0-1 [facility] Bilirubin [Mass/Vol] 0.50 mg/dL 0.20-1.00 [facility] Comment on above: For patients on eltr ombopag therapy, use of Dimension [place] TBIL is not recommended. Chloride [Moles/Vol] 105 mmol/L 98-107 [facility] Eosinophils/100 WBC (Bld) 3.0 % 0-5 [facility] Glucose [Mass/Vol] 103 mg/dL 74-106 [facility] Comment on above: Fasting Glucose resu lt from 100 to 125 mg/dL suggests IMPAIRED HOMEOSTASIS per A.D.A. criteria. Neutrophils (Bld) [#/Vol] 2.3 10*3/uL 2.0-7.7 [facility] Neutrophils/100 WBC (Bld) 62.0 % 47-70 [facility] Potassium [Moles/Vol] 3.6 mmol/L 3.5-5.1 [facility] Protein [Mass/Vol] 6.7 g/dL 6.4-8.2 [facility] Sodium [Moles/Vol] 138 mmol/L 136-145 [facility] WBC (Bld) [#/Vol] 3.6 10*3/uL 4.4-11.0 [facility] Blood erythrocytes count (nu mber/volume)Ordered By: Gerri Tejeda on 07-21-2023 RBC (Bld) [#/Vol] 3.54 10*6/uL 4.2-5.[address] [facility] Blood hemoglobin measurement (mass/volume)Ordered By: Gerri Tejeda on 07-21-2023 Hemoglobin (Bld) [Mass/Vol] 11.5 g/dL 12.0-15.0 [facility] Blood lymphocytes/100 leukoc ytesOrdered By: Gerripriscilla Tejeda on 07-21-2023 Lymphocytes/100 WBC (Bld) 24.8 % 19-41 [facility] Blood monocytes/100 leukocyt esOrdered By: Gerri Tejeda on 07-21-2023 Monocytes/100 WBC (Bld) 8.5 % 0-10 [facility] Blood platelet mean volumeOr dered By: Gerri Ileana on 07-21-2023 Platelet mean volume (Bld) [Entitic vol] 10.7 fL 6.2-12.0 [facility] Determination of erythrocyte mean corpuscular volume (MCV)Ordered By: Gerripriscilla Tejeda on 07-21-2023 MCV (RBC) [Entitic vol] 101.4 fL 81-99 [facility] Hematocrit Auto (Bld) [Volum e fraction]Ordered By: Gerri Tejeda on 07-21-2023 Hematocrit (Bld) [Volume fraction] 35.9 % 37-47 [facility] Laboratory - Chemistry and C hemistry - challengeOrdered By: Gerri Tejeda on 07-21-2023 ALP [Catalytic activity/Vol] 58 U/L 45-117 [facility] ALT [Catalytic activity/Vol] 29 U/L 13-56 [facility] CO2 [Moles/Vol] 29.0 mmol/L 21.0-32.0 [facility] Globulin (S) [Mass/Vol] 3.5 g/dL 2.2-4.2 [facility] Urea nitrogen/Creatinine [Mass ratio] 14.4 mg/mg 10-20 [facility] Laboratory - Hematology and Cell countsOrdered By: Gerri Tejeda on 07-21-2023 Erythrocyte distribution width (RBC) [Entitic vol] 48.3 fL 35.1-43.9 [facility] Erythrocyte distribution width (RBC) [Ratio] 13.2 % 11.6-14.6 [facility] Immature granulocytes/100 WBC (Bld) 0.300 % 0.0-0.9 [facility] Comment on above: IG% - Immature Granu locytes (promyelocytes, myelocytes and metamyelocytes) > 1% indicates that a LEFT SHIFT is Present. MCH (RBC) [Entitic mass] 32.5 pg 27.0-32.0 [facility] Nucleated RBC/100 WBC (Bld) [Ratio] 0 % 0-5 [facility] MCHC Auto (RBC) [Mass/Vol]Or dered By: Gerri Tejeda on 07-21-2023 MCHC (RBC) [Mass/Vol] 32.0 g/dL 32-36 [facility] No Panel InformationOrdered By: Gerri Tejeda on 07-21-2023 Estimated GFR (MDRD) Amer 67 mL/min >60 [facility] Comment on above: GFR Calc Estimated GFR (MDRD) Non-Af Amer 55 mL/min >60 [facility] Comment on above: Non- GFR Calc Platelets bldOrdered By: Mulu Tejeda on 07-21-2023 Platelets (Bld) [#/Vol] 279 10*3/uL 150-450 [facility] Serum or plasma albumin leatha urement (mass/volume)Ordered By: Gerri eTjeda on 07-21-2023 Albumin [Mass/Vol] 3.2 g/dL 3.2-5.0 [facility] Serum or plasma albumin/glob ulin mass ratioOrdered By: Gerri Tejeda on 07-21-2023 Albumin/Globulin [Mass ratio] 0.9 {ratio} 0.9-2.4 [facility] Serum or plasma calcium leatha urement (mass/volume)Ordered By: Gerri Tejeda on 07-21-2023 Calcium [Mass/Vol] 9.4 mg/dL 8.5-10.1 [facility] Serum or plasma creatinine m easurement (mass/volume)Ordered By: Gerri Tejeda on 07-21-2023 Creatinine [Mass/Vol] 1.04 mg/dL 0.55-1.02 [facility] Comment on above: The validity of the calculated GFR & GFRAA in patients over 70 years has not been determined. Clinical correlation is essential. Serum or plasma urea nitroge n measurement (mass/volume)Ordered By: Gerri Tejeda on 07-21-2023 Urea nitrogen [Mass/Vol] 15 mg/dL 7-18 [facility] Thin prep Papanicolaou smear with manual screeningOrdered By: Gerri Tejeda on 07-21-2023 Thin prep Papanicolaou smear with manual screening 26 U/L 15-37 [facility] Thin prep Papanicolaou smear with manual screening 4 5-15 [facility] No Panel Informationon 06-28 Influenza Types A,B Rapid (Clinic) Negative [facility] POC SARS CoV-2 Antigen Positive [facility] Absolute lymphocyte countOrd ered By: Gerri Tejeda on 04-22-2023 Lymphocytes Auto (Unsp spec) [#/Vol] 1.38 10*3/uL 0.83-4.51 [facility] Basophil percentageOrdered B y: Gerri Tejeda on 04-22-2023 Basophils/100 WBC (Bld) 0.7 % 0-1 [facility] Bilirubin [Mass/Vol] 0.40 mg/dL 0.20-1.00 [facility] Comment on above: For patients on eltr ombopag therapy, use of Dimension [place] TBIL is not recommended. Chloride [Moles/Vol] 104 mmol/L 98-107 [facility] Eosinophils/100 WBC (Bld) 2.0 % 0-5 [facility] Glucose [Mass/Vol] 102 mg/dL 74-106 [facility] Comment on above: Fasting Glucose resu lt from 100 to 125 mg/dL suggests IMPAIRED HOMEOSTASIS per A.D.A. criteria. Neutrophils (Bld) [#/Vol] 3.4 10*3/uL 2.0-7.7 [facility] Neutrophils/100 WBC (Bld) 62.5 % 47-70 [facility] Potassium [Moles/Vol] 3.6 mmol/L 3.5-5.1 [facility] Protein [Mass/Vol] 6.6 g/dL 6.4-8.2 [facility] Sodium [Moles/Vol] 139 mmol/L 136-145 [facility] WBC (Bld) [#/Vol] 5.4 10*3/uL 4.4-11.0 [facility] Blood erythrocytes count (nu mber/volume)Ordered By: Gerri Tejeda on 04-22-2023 RBC (Bld) [#/Vol] 3.62 10*6/uL 4.2-5.[address] [facility] Blood hemoglobin measurement (mass/volume)Ordered By: Gerri Tejeda on 04-22-2023 Hemoglobin (Bld) [Mass/Vol] 11.5 g/dL 12.0-15.0 [facility] Blood lymphocytes/100 leukoc ytesOrdered By: Gerri Tejeda on 04-22-2023 Lymphocytes/100 WBC (Bld) 25.7 % 19-41 [facility] Blood monocytes/100 leukocyt esOrdered By: Gerri Tejeda on 04-22-2023 Monocytes/100 WBC (Bld) 8.9 % 0-10 [facility] Blood platelet mean volumeOr dered By: Gerri Tejeda on 04-22-2023 Platelet mean volume (Bld) [Entitic vol] 10.5 fL 6.2-12.0 [facility] Determination of erythrocyte mean corpuscular volume (MCV)Ordered By: Gerri Tejeda on 04-22-2023 MCV (RBC) [Entitic vol] 102.5 fL 81-99 [facility] Hematocrit Auto (Bld) [Volum e fraction]Ordered By: Gerri Tejeda on 04-22-2023 Hematocrit (Bld) [Volume fraction] 37.1 % 37-47 [facility] Laboratory - Chemistry and C hemistry - challengeOrdered By: Gerri Tejeda on 04-22-2023 ALP [Catalytic activity/Vol] 57 U/L 45-117 [facility] ALT [Catalytic activity/Vol] 21 U/L 13-56 [facility] CO2 [Moles/Vol] 30.0 mmol/L 21.0-32.0 [facility] Globulin (S) [Mass/Vol] 3.3 g/dL 2.2-4.2 [facility] Urea nitrogen/Creatinine [Mass ratio] 12.3 mg/mg 10-20 [facility] Laboratory - Hematology and Cell countsOrdered By: Gerri Tejeda on 04-22-2023 Erythrocyte distribution width (RBC) [Entitic vol] 48.8 fL 35.1-43.9 [facility] Erythrocyte distribution width (RBC) [Ratio] 13.1 % 11.6-14.6 [facility] Immature granulocytes/100 WBC (Bld) 0.200 % 0.0-0.9 [facility] Comment on above: IG% - Immature Granu locytes (promyelocytes, myelocytes and metamyelocytes) > 1% indicates that a LEFT SHIFT is Present. MCH (RBC) [Entitic mass] 31.8 pg 27.0-32.0 [facility] Nucleated RBC/100 WBC (Bld) [Ratio] 0 % 0-5 [facility] MCHC Auto (RBC) [Mass/Vol]Or dered By: Gerri Tejeda on 04-22-2023 MCHC (RBC) [Mass/Vol] 31.0 g/dL 32-36 [facility] No Panel InformationOrdered By: Gerri Tejeda on 04-22-2023 Estimated GFR (MDRD) Amer 65 mL/min >60 [facility] Comment on above: GFR Calc Estimated GFR (MDRD) Non-Af Amer 54 mL/min >60 [facility] Comment on above: Non- GFR Calc Platelets bldOrdered By: Mulu Tejeda on 04-22-2023 Platelets (Bld) [#/Vol] 290 10*3/uL 150-450 [facility] Serum or plasma albumin leatha urement (mass/volume)Ordered By: Gerri Tejeda on 04-22-2023 Albumin [Mass/Vol] 3.3 g/dL 3.2-5.0 [facility] Serum or plasma albumin/glob ulin mass ratioOrdered By: Gerri Tejeda on 04-22-2023 Albumin/Globulin [Mass ratio] 1.0 {ratio} 0.9-2.4 [facility] Serum or plasma calcium leatha urement (mass/volume)Ordered By: Gerri Tejeda on 04-22-2023 Calcium [Mass/Vol] 9.2 mg/dL 8.5-10.1 [facility] Serum or plasma creatinine m easurement (mass/volume)Ordered By: Gerri Tejeda on 04-22-2023 Creatinine [Mass/Vol] 1.06 mg/dL 0.55-1.02 [facility] Comment on above: The validity of the calculated GFR & GFRAA in patients over 70 years has not been determined. Clinical correlation is essential. Serum or plasma urea nitroge n measurement (mass/volume)Ordered By: Gerripriscilla Tejeda on 04-22-2023 Urea nitrogen [Mass/Vol] 13 mg/dL 7-18 [facility] Thin prep Papanicolaou smear with manual screeningOrdered By: Gerri Tejeda on 04-22-2023 Thin prep Papanicolaou smear with manual screening 18 U/L 15-37 [facility] Thin prep Papanicolaou smear with manual screening 5 5-15 [facility] Basophil percentageOrdered B y: Mariluz Cisneros on 03-04-2023 Chloride [Moles/Vol] 107 mmol/L 98-107 [facility] Glucose [Mass/Vol] 102 mg/dL 74-106 [facility] Comment on above: Fasting Glucose resu lt from 100 to 125 mg/dL suggests IMPAIRED HOMEOSTASIS per A.D.A. criteria. Potassium [Moles/Vol] 4.1 mmol/L 3.5-5.1 [facility] Sodium [Moles/Vol] 141 mmol/L 136-145 [facility] Blood hemoglobin measurement (mass/volume)Ordered By: Mariluz Cisneros on 03-04-2023 Hemoglobin (Bld) [Mass/Vol] 9.5 g/dL 12.0-15.0 [facility] Hematocrit Auto (Bld) [Volum e fraction]Ordered By: Mariluz Cisneros on 03-04-2023 Hematocrit (Bld) [Volume fraction] 30.0 % 37-47 [facility] Laboratory - Chemistry and C hemistry - challengeOrdered By: Mariluz Cisneros on 03-04-2023 CO2 [Moles/Vol] 30.0 mmol/L 21.0-32.0 [facility] Urea nitrogen/Creatinine [Mass ratio] 27.4 mg/mg 10-20 [facility] No Panel InformationOrdered By: Mariluz Cisneros on 03-04-2023 Estimated Creatinine Clearance Calc 56.67 ml/min [facility] Estimated GFR (MDRD) Amer 86 mL/min >60 [facility] Comment on above: GFR Calc Estimated GFR (MDRD) Non-Af Amer 71 mL/min >60 [facility] Comment on above: Non- GFR Calc Serum or plasma calcium leatha urement (mass/volume)Ordered By: Mariluz Cisneros on 03-04-2023 Calcium [Mass/Vol] 8.9 mg/dL 8.5-10.1 [facility] Serum or plasma creatinine m easurement (mass/volume)Ordered By: Mariluz Cisneros on 03-04-2023 Creatinine [Mass/Vol] 0.84 mg/dL 0.55-1.02 [facility] Comment on above: The validity of the calculated GFR & GFRAA in patients over 70 years has not been determined. Clinical correlation is essential. Serum or plasma urea nitroge n measurement (mass/volume)Ordered By: Mariluz Cisneros on 03-04-2023 Urea nitrogen [Mass/Vol] 23 mg/dL 7-18 [facility] Thin prep Papanicolaou smear with manual screeningOrdered By: Mariluz Cisneros on 03-04-2023 Thin prep Papanicolaou smear with manual screening 4 5-15 [facility] Stool gastrointestinal hemog lobin detection by immunologic methodOrdered By: Mariluz Cisneros on 03-01-2023 Lower GI hemoglobin IA Ql (Stl) [facility] Lower GI hemoglobin IA Ql (Stl) [facility] Absolute lymphocyte countOrd ered By: Mariluz Cisneros on 02-25-2023 Lymphocytes Auto (Unsp spec) [#/Vol] 1.17 10*3/uL 0.83-4.51 [facility] Basophil percentageOrdered B y: Mariluz Cisneros on 02-25-2023 Basophil percentage 4.4 mg/dL 2.5-4.[address] [facility] Basophils/100 WBC (Bld) 0.9 % 0-1 [facility] Bilirubin [Mass/Vol] 0.30 mg/dL 0.20-1.00 [facility] Comment on above: For patients on eltr ombopag therapy, use of [employer] [place] TBIL is not recommended. Eosinophils/100 WBC (Bld) 3.8 % 0-5 [facility] Neutrophils (Bld) [#/Vol] 4.7 10*3/uL 2.0-7.7 [facility] Neutrophils/100 WBC (Bld) 66.7 % 47-70 [facility] Protein [Mass/Vol] 5.8 g/dL 6.4-8.2 [facility] WBC (Bld) [#/Vol] 7.0 10*3/uL 4.4-11.0 [facility] Blood erythrocytes count (nu mber/volume)Ordered By: Mariluz Cisneros on 02-25-2023 RBC (Bld) [#/Vol] 2.89 10*6/uL 4.2-5.[address] [facility] Blood lymphocytes/100 leukoc ytesOrdered By: Mariluz Cisneros on 02-25-2023 Lymphocytes/100 WBC (Bld) 16.6 % 19-41 [facility] Blood monocytes/100 leukocyt esOrdered By: Mariluz Cisneros on 02-25-2023 Monocytes/100 WBC (Bld) 11.6 % 0-10 [facility] Blood platelet mean volumeOr dered By: Mariluz Cisneros on 02-25-2023 Platelet mean volume (Bld) [Entitic vol] 10.1 fL 6.2-12.0 [facility] Determination of erythrocyte mean corpuscular volume (MCV)Ordered By: Mariluz Cisneros on 02-25-2023 MCV (RBC) [Entitic vol] 104.2 fL 81-99 [facility] Laboratory - Chemistry and C hemistry - challengeOrdered By: Mariluz Cisneros on 02-25-2023 ALP [Catalytic activity/Vol] 52 U/L 45-117 [facility] ALT [Catalytic activity/Vol] 23 U/L 13-56 [facility] Globulin (S) [Mass/Vol] 3.5 g/dL 2.2-4.2 [facility] Magnesium [Mass/Vol] 2.2 mg/dL 1.6-2.6 [facility] Laboratory - Hematology and Cell countsOrdered By: Mariluz Cisneros on 02-25-2023 Erythrocyte distribution width (RBC) [Entitic vol] 47.3 fL 35.1-43.9 [facility] Erythrocyte distribution width (RBC) [Ratio] 12.6 % 11.6-14.6 [facility] Immature granulocytes/100 WBC (Bld) 0.400 % 0.0-0.9 [facility] Comment on above: IG% - Immature Granu locytes (promyelocytes, myelocytes and metamyelocytes) > 1% indicates that a LEFT SHIFT is Present. MCH (RBC) [Entitic mass] 33.2 pg 27.0-32.0 [facility] Nucleated RBC/100 WBC (Bld) [Ratio] 0 % 0-5 [facility] MCHC Auto (RBC) [Mass/Vol]Or dered By: Mariluz Cisneros on 02-25-2023 MCHC (RBC) [Mass/Vol] 31.9 g/dL 32-36 [facility] No Panel InformationOrdered By: Mairluz Cisneros on 02-25-2023 Vitamin D 25-Hydroxy 73.1 ng/mL [facility] Comment on above: Vitamin D 25(OH) Sta tus Range Deficiency <20 ng/mL (50nmol/L) Insufficiency 20 - 30 ng/mL (50 - 75 nmol/L) Sufficiency 30 - 100 ng/mL (75 - 250 nmol/L) Toxicity >100 ng/mL (>250 nmol/L) Platelets bldOrdered By: Brii Cisneros on 02-25-2023 Platelets (Bld) [#/Vol] 277 10*3/uL 150-450 [facility] Serum or plasma albumin leatha urement (mass/volume)Ordered By: Mariluz Cisneros on 02-25-2023 Albumin [Mass/Vol] 2.3 g/dL 3.2-5.0 [facility] Serum or plasma albumin/glob ulin mass ratioOrdered By: Mariluz Cisneros on 02-25-2023 Albumin/Globulin [Mass ratio] 0.7 {ratio} 0.9-2.4 [facility] Thin prep Papanicolaou smear with manual screeningOrdered By: Mariluz Cisneros on 02-25-2023 Thin prep Papanicolaou smear with manual screening 27 U/L 15-37 [facility] Absolute lymphocyte countOrd ered By: Fili Faria on 02-21-2023 Lymphocytes Auto (Unsp spec) [#/Vol] 0.99 10*3/uL 0.83-4.51 [facility] Basophil percentageOrdered B y: Fili Faria on 02-21-2023 Basophils/100 WBC (Bld) 0.4 % 0-1 [facility] Bilirubin [Mass/Vol] 0.70 mg/dL 0.20-1.00 [facility] Comment on above: For patients on eltr ombopag therapy, use of [employer] [place] TBIL is not recommended. Chloride [Moles/Vol] 99 mmol/L 98-107 [facility] Eosinophils/100 WBC (Bld) 2.2 % 0-5 [facility] Glucose [Mass/Vol] 111 mg/dL 74-106 [facility] Comment on above: Fasting Glucose resu lt from 100 to 125 mg/dL suggests IMPAIRED HOMEOSTASIS per A.D.A. criteria. Neutrophils (Bld) [#/Vol] 7.2 10*3/uL 2.0-7.7 [facility] Neutrophils/100 WBC (Bld) 76.5 % 47-70 [facility] Potassium [Moles/Vol] 3.8 mmol/L 3.5-5.1 [facility] Protein [Mass/Vol] 6.5 g/dL 6.4-8.2 [facility] Sodium [Moles/Vol] 135 mmol/L 136-145 [facility] WBC (Bld) [#/Vol] 9.4 10*3/uL 4.4-11.0 [facility] Basophil percentage 0 SEEN /hpf 0-5 [facility] Bilirubin Test strip Ql (U)O rdered By: Fili Faria on 02-21-2023 Bilirubin Ql (U) Negative Negative [facility] Blood erythrocytes count (nu mber/volume)Ordered By: Fili Faria on 02-21-2023 RBC (Bld) [#/Vol] 3.30 10*6/uL 4.2-5.[address] [facility] Blood hemoglobin measurement (mass/volume)Ordered By: Fili Faria on 02-21-2023 Hemoglobin (Bld) [Mass/Vol] 10.9 g/dL 12.0-15.0 [facility] Blood lymphocytes/100 leukoc ytesOrdered By: Fili Faria on 02-21-2023 Lymphocytes/100 WBC (Bld) 10.5 % 19-41 [facility] Blood monocytes/100 leukocyt esOrdered By: Fili Faria on 02-21-2023 Monocytes/100 WBC (Bld) 9.9 % 0-10 [facility] Blood platelet mean volumeOr dered By: Fili Faria on 02-21-2023 Platelet mean volume (Bld) [Entitic vol] 10.4 fL 6.2-12.0 [facility] Determination of erythrocyte mean corpuscular volume (MCV)Ordered By: Fili Faria on 02-21-2023 MCV (RBC) [Entitic vol] 102.1 fL 81-99 [facility] Erythrocyte sedimentation ra teOrdered By: Fili Faria on 02-21-2023 ESR (Bld) [Velocity] 42 mm/h 0-30 [facility] Hematocrit Auto (Bld) [Volum e fraction]Ordered By: Fili Faria on 02-21-2023 Hematocrit (Bld) [Volume fraction] 33.7 % 37-47 [facility] Ketones Test strip Ql (U)Ord ered By: Fili Faria on 02-21-2023 Ketones Ql (U) Negative Negative [facility] Laboratory - Chemistry and C hemistry - challengeOrdered By: Fili Faria on 02-21-2023 ALP [Catalytic activity/Vol] 33 U/L 45-117 [facility] ALT [Catalytic activity/Vol] 19 U/L 13-56 [facility] CO2 [Moles/Vol] 32.0 mmol/L 21.0-32.0 [facility] Globulin (S) [Mass/Vol] 3.6 g/dL 2.2-4.2 [facility] Urea nitrogen/Creatinine [Mass ratio] 14.7 mg/mg 10-20 [facility] Laboratory - Hematology and Cell countsOrdered By: Fili Faria on 02-21-2023 Erythrocyte distribution width (RBC) [Entitic vol] 46.5 fL 35.1-43.9 [facility] Erythrocyte distribution width (RBC) [Ratio] 12.6 % 11.6-14.6 [facility] Immature granulocytes/100 WBC (Bld) 0.500 % 0.0-0.9 [facility] Comment on above: IG% - Immature Granu locytes (promyelocytes, myelocytes and metamyelocytes) > 1% indicates that a LEFT SHIFT is Present. MCH (RBC) [Entitic mass] 33.0 pg 27.0-32.0 [facility] Nucleated RBC/100 WBC (Bld) [Ratio] 0 % 0-5 [facility] MCHC Auto (RBC) [Mass/Vol]Or dered By: Fili Faria on 02-21-2023 MCHC (RBC) [Mass/Vol] 32.3 g/dL 32-36 [facility] Mucus LM Ql (Urine sed)Order ed By: Fili Faria on 02-21-2023 Mucus Ql (Urine sed) 0 SEEN /hpf [facility] Nitrite Test strip Ql (U)Ord ered By: Fili Faria on 02-21-2023 Nitrite Ql (U) Negative Negative [facility] No Panel InformationOrdered By: Fili Faria on 02-21-2023 Estimated Creatinine Clearance Calc 47.60 ml/min [facility] Estimated GFR (MDRD) Amer 98 mL/min >60 [facility] Comment on above: GFR Calc Estimated GFR (MDRD) Non-Af Amer 81 mL/min >60 [facility] Comment on above: Non- GFR Calc Platelets bldOrdered By: Kendra Faria on 02-21-2023 Platelets (Bld) [#/Vol] 291 10*3/uL 150-450 [facility] Protein Test strip Ql (U)Ord ered By: Fili Faria on 02-21-2023 Protein Ql (U) Negative Negative [facility] Serum or plasma C reactive p rotein measurement (mass/volume)Ordered By: Fili Faria on 02-21-2023 CRP [Mass/Vol] 168.00 mg/L 0.0-3.0 [facility] Comment on above: C-Reactive Protein ( CRP) provides useful information for thediagnosis, therapy and monitoring of inflammatory processesand associated diseases. For the evaluation of Relative Riskfor Cardiovascular Disease, a High Sensitivity CRP (HSCRP)should be ordered. Serum or plasma albumin leatha urement (mass/volume)Ordered By: Fili Faria on 02-21-2023 Albumin [Mass/Vol] 2.9 g/dL 3.2-5.0 [facility] Serum or plasma albumin/glob ulin mass ratioOrdered By: Fili Faria on 02-21-2023 Albumin/Globulin [Mass ratio] 0.8 {ratio} 0.9-2.4 [facility] Serum or plasma calcium leatha urement (mass/volume)Ordered By: Fili Faria on 02-21-2023 Calcium [Mass/Vol] 9.3 mg/dL 8.5-10.1 [facility] Serum or plasma creatinine m easurement (mass/volume)Ordered By: Fili Faria on 02-21-2023 Creatinine [Mass/Vol] 0.75 mg/dL 0.55-1.02 [facility] Comment on above: The validity of the calculated GFR & GFRAA in patients over 70 years has not been determined. Clinical correlation is essential. Serum or plasma urea nitroge n measurement (mass/volume)Ordered By: Fili Faria on 02-21-2023 Urea nitrogen [Mass/Vol] 11 mg/dL 7-18 [facility] Squamous epithelial cells de tection in urine sediment by light microscopyOrdered By: Fili Faria on 02-21-2023 Epithelial cells.squamous LM Ql (Urine sed) 0-5 SEEN /hpf 5-10 [facility] Thin prep Papanicolaou smear with manual screeningOrdered By: Fili Faria on 02-21-2023 Thin prep Papanicolaou smear with manual screening 31 U/L 15-37 [facility] Thin prep Papanicolaou smear with manual screening 4 5-15 [facility] Urine blood detectionOrdered By: Fili Faria on 02-21-2023 RBC Ql (U) 25 /ul Negative [facility] RBC Ql (U) 0-5 SEEN /hpf 0-5 [facility] Urine clarityOrdered By: Kendra Faria on 02-21-2023 Clarity (U) Clear Clear [facility] Urine color determinationOrd ered By: Fili Faria on 08-06-2023 Color (U) Yellow Yellow [facility] Urine glucose detectionOrder ed By: Fili Faria on 02-21-2023 Glucose Ql (U) Normal mg/dl Normal [facility] Urine leukocyte esterase det ection by dipstickOrdered By: Fili Faria on 02-21-2023 Leukocyte esterase Test strip Ql (U) Negative Negative [facility] Urine pHOrdered By: Fili nolasco on 02-21-2023 pH (U) 7.0 [pH] 5.0 - 8.0 [facility] Urine sediment bacteria coun t by microscopy (number/high power field)Ordered By: Fili Faria on 02-21-2023 Bacteria LM.HPF (Urine sed) [#/Area] 2 /[HPF] None Seen [facility] Urine specific gravity measu rementOrdered By: Fili Faria on 02-21-2023 Specific gravity (U) [Rel density] 1.010 1.002-1.03 0 [facility] Urobilinogen Auto test strip Ql (U)Ordered By: Fili Faria on 02-21-2023 Urobilinogen Ql (U) Normal mg/dl Normal [facility] Absolute lymphocyte countOrd ered By: Gerri Tejeda on 01-21-2023 Lymphocytes Auto (Unsp spec) [#/Vol] 1.16 10*3/uL 0.83-4.51 [facility] Basophil percentageOrdered B y: Gerri Tejeda on 01-21-2023 Basophils/100 WBC (Bld) 1.0 % 0-1 [facility] Bilirubin [Mass/Vol] 0.50 mg/dL 0.20-1.00 [facility] Comment on above: For patients on eltr ombopag therapy, use of [employer] [place] TBIL is not recommended. Chloride [Moles/Vol] 103 mmol/L 98-107 [facility] Eosinophils/100 WBC (Bld) 2.2 % 0-5 [facility] Glucose [Mass/Vol] 105 mg/dL 74-106 [facility] Comment on above: Fasting Glucose resu lt from 100 to 125 mg/dL suggests IMPAIRED HOMEOSTASIS per A.D.A. criteria. Neutrophils (Bld) [#/Vol] 3.2 10*3/uL 2.0-7.7 [facility] Neutrophils/100 WBC (Bld) 64.3 % 47-70 [facility] Potassium [Moles/Vol] 3.4 mmol/L 3.5-5.1 [facility] Protein [Mass/Vol] 6.7 g/dL 6.4-8.2 [facility] Sodium [Moles/Vol] 138 mmol/L 136-145 [facility] WBC (Bld) [#/Vol] 5.0 10*3/uL 4.4-11.0 [facility] Blood erythrocytes count (nu mber/volume)Ordered By: Gerri Tejeda on 01-21-2023 RBC (Bld) [#/Vol] 3.60 10*6/uL 4.2-5.[address] [facility] Blood hemoglobin measurement (mass/volume)Ordered By: Gerri Tejeda on 01-21-2023 Hemoglobin (Bld) [Mass/Vol] 12.1 g/dL 12.0-15.0 [facility] Blood lymphocytes/100 leukoc ytesOrdered By: Gerri Tejeda on 01-21-2023 Lymphocytes/100 WBC (Bld) 23.4 % 19-41 [facility] Blood monocytes/100 leukocyt esOrdered By: Gerri Tejeda on 01-21-2023 Monocytes/100 WBC (Bld) 8.9 % 0-10 [facility] Blood platelet mean volumeOr dered By: Gerri Tejeda on 01-21-2023 Platelet mean volume (Bld) [Entitic vol] 10.1 fL 6.2-12.0 [facility] Determination of erythrocyte mean corpuscular volume (MCV)Ordered By: Gerri Tejeda on 01-21-2023 MCV (RBC) [Entitic vol] 100.8 fL 81-99 [facility] Hematocrit Auto (Bld) [Volum e fraction]Ordered By: Gerri Tejeda on 01-21-2023 Hematocrit (Bld) [Volume fraction] 36.3 % 37-47 [facility] Laboratory - Chemistry and C hemistry - challengeOrdered By: Gerri Tejeda on 01-21-2023 ALP [Catalytic activity/Vol] 54 U/L 45-117 [facility] ALT [Catalytic activity/Vol] 29 U/L 13-56 [facility] CO2 [Moles/Vol] 30.0 mmol/L 21.0-32.0 [facility] Globulin (S) [Mass/Vol] 3.3 g/dL 2.2-4.2 [facility] Urea nitrogen/Creatinine [Mass ratio] 15.6 mg/mg 10-20 [facility] Laboratory - Hematology and Cell countsOrdered By: Gerri Tejeda on 01-21-2023 Erythrocyte distribution width (RBC) [Entitic vol] 45.8 fL 35.1-43.9 [facility] Erythrocyte distribution width (RBC) [Ratio] 12.5 % 11.6-14.6 [facility] Immature granulocytes/100 WBC (Bld) 0.200 % 0.0-0.9 [facility] Comment on above: IG% - Immature Granu locytes (promyelocytes, myelocytes and metamyelocytes) > 1% indicates that a LEFT SHIFT is Present. MCH (RBC) [Entitic mass] 33.6 pg 27.0-32.0 [facility] Nucleated RBC/100 WBC (Bld) [Ratio] 0 % 0-5 [facility] MCHC Auto (RBC) [Mass/Vol]Or dered By: Gerri Tejeda on 01-21-2023 MCHC (RBC) [Mass/Vol] 33.3 g/dL 32-36 [facility] No Panel InformationOrdered By: Gerri Tejeda on 01-21-2023 Estimated GFR (MDRD) Amer 73 mL/min >60 [facility] Comment on above: GFR Calc Estimated GFR (MDRD) Non-Af Amer 60 mL/min >60 [facility] Comment on above: Non- GFR Calc Platelets bldOrdered By: Mulu Tejeda on 01-21-2023 Platelets (Bld) [#/Vol] 288 10*3/uL 150-450 [facility] Serum or plasma albumin leatha urement (mass/volume)Ordered By: Gerri Tejeda on 01-21-2023 Albumin [Mass/Vol] 3.4 g/dL 3.2-5.0 [facility] Serum or plasma albumin/glob ulin mass ratioOrdered By: Gerri Tejeda on 01-21-2023 Albumin/Globulin [Mass ratio] 1.0 {ratio} 0.9-2.4 [facility] Serum or plasma calcium leatha urement (mass/volume)Ordered By: Gerri Tejeda on 01-21-2023 Calcium [Mass/Vol] 9.0 mg/dL 8.5-10.1 [facility] Serum or plasma creatinine m easurement (mass/volume)Ordered By: Gerri Tejeda on 01-21-2023 Creatinine [Mass/Vol] 0.96 mg/dL 0.55-1.02 [facility] Comment on above: The validity of the calculated GFR & GFRAA in patients over 70 years has not been determined. Clinical correlation is essential. Serum or plasma urea nitroge n measurement (mass/volume)Ordered By: Gerri Tejeda on 01-21-2023 Urea nitrogen [Mass/Vol] 15 mg/dL 7-18 [facility] Thin prep Papanicolaou smear with manual screeningOrdered By: Gerri Tejeda on 01-21-2023 Thin prep Papanicolaou smear with manual screening 26 U/L 15-37 [facility] Thin prep Papanicolaou smear with manual screening 5 5-15 [facility] Alternaria alternata IgE ser umOrdered By: Carl Bourgeois on 01-07-2023 A. alternata IgE Qn (S) <0.10 kU/L Class 0 [facility] No Panel InformationOrdered By: Carl Bourgeois on 01-07-2023 Cat Hair Allergen <0.10 kU/L Class 0 [facility] Common Ragweed (Short) Allergen <0.10 kU/L Class 0 [facility] Immunoglobulin E 34 IU/mL 6-495 [facility] [facility] ([place]) Allergen IgE Ab <0.10 kU/L Class 0 [facility] Mouse Urine Allergen IgE Antibody <0.10 kU/L Class 0 [facility] Comment on above: Performed at: [address] [id number] Director: Ava Jason MD, Phone: [phone] RAST Comment Comment . [facility] Comment on above: Levels of Specific I gE Class Description of Class ----- < 0.10 0 Negative 0.10 - 0.31 0/I Equivocal/Low 0.32 - 0.55 I Low 0.56 - 1.40 II Moderate 1.41 - 3.90 III High 3.91 - 19.00 IV Very High 19.01 - 100.00 V Very High >100.00 Very High [place] Tree Allergen <0.10 kU/L Class 0 [facility] Rough pigweed specific IgE a ntibody assayOrdered By: Carl Bourgeois on 01-07-2023 Rough Pigweed IgE Qn (S) <0.10 kU/L Class 0 [facility] Serum Bolivian sycamore IgE antibody assay (units/volume)Ordered By: Carl Bourgeois on 01-07-2023 [place]ian [place] IgE Qn (S) <0.10 kU/L Class 0 [facility] Serum Aspergillus fumigatus IgE antibody assay (units/volume)Ordered By: Carl Bourgeois on 01-07-2023 A. fumigatus IgE Qn (S) <0.10 kU/L Class 0 [facility] Serum Bermuda grass IgE anti body assay (units/volume)Ordered By: Carl Bourgeois on 01-07-2023 Bermuda grass IgE Qn (S) <0.10 kU/L Class 0 [facility] Serum Cladosporium herbarum IgE antibody assay (units/volume)Ordered By: Carl Bourgeois on 01-07-2023 C. herbarum IgE Qn (S) <0.10 kU/L Class 0 [facility] Serum Dermatophagoides farin ae specific IgE antibody assay (units/volume)Ordered By: Carl Bourgeois on 01-07-2023 Bolivian house dust mite IgE Qn (S) <0.10 kU/L Class 0 [facility] Serum house dust mi te IgE antibody assay (units/volume)Ordered By: Carl Bourgeois on 01-07-2023 house dust mite IgE Qn (S) <0.10 kU/L Class 0 [facility] Serum Penicillium notatum Ig E antibody assay (units/volume)Ordered By: Carl Bourgeois on 01-07-2023 P. notatum IgE Qn (S) <0.10 kU/L Class 0 [facility] Serum Periplaneta americana IgE antibody assay (units/volume)Ordered By: Carl Bourgeois on 01-07-2023 Bolivian Cockroach IgE Qn (S) <0.10 kU/L Class 0 [facility] Serum Gibraltarian thistle specif ic IgE antibody assayOrdered By: Carl Bourgeois on 01-07-2023 Saltwort IgE Qn (S) <0.10 kU/L Class [address] [facility] Serum birch specific IgE ant ibody assayOrdered By: Carl Bourgeois on 01-07-2023 Silver Birch IgE Qn (S) <0.10 kU/L Class 0 [facility] Serum black walnut IgE antib kelvin assay (units/volume)Ordered By: Carl Bourgeois on 01-07-2023 Black Towaco IgE Qn (S) <0.10 kU/L Class 0 [facility] Serum cottonwood IgE antibod y assay (units/volume)Ordered By: Carl Bourgeois on 01-07-2023 [place] IgE Qn (S) <0.10 kU/L Class 0 [facility] Serum dog epithelium IgE ant ibody assay (units/volume)Ordered By: Carl Bourgeois on 01-07-2023 Dog epithelium IgE Qn (S) <0.10 kU/L Class 0 [facility] Serum mountain cedar specifi c IgE antibody assayOrdered By: Carl Bourgeois on 01-07-2023 Mountain Juniper IgE Qn (S) <0.10 kU/L Class 0 [facility] Serum pecan or hickory nut I gE antibody assay (units/volume)Ordered By: Carl Bourgeois on 01-07-2023 Pecan or Mouthcard Nut IgE Qn (S) <0.10 kU/L Class 0 [facility] Serum sheep sorrel IgE antib kelvin assay (units/volume)Ordered By: Carl Bourgeois on 01-07-2023 Sheep Pe Ell IgE Qn (S) <0.10 kU/L Class 0 [facility] Serum leobardo IgE antibody a ssay (units/volume)Ordered By: Carl Bourgeois on 01-07-2023 Leobardo IgE Qn (S) <0.10 kU/L Class 0 [facility] Serum white claude IgE antibody assay (units/volume)Ordered By: Carl Bourgeois on 01-07-2023 White Claude IgE Qn (S) <0.10 kU/L Class 0 [facility] Serum white elm IgE antibody assay (units/volume)Ordered By: Carl Bourgeois on 01-07-2023 White Elm IgE Qn (S) <0.10 kU/L Class 0 [facility] Serum white mulberry IgE ant ibody assay (units/volume)Ordered By: Carl Bourgeois on 01-07-2023 White mulberry IgE Qn (S) <0.10 kU/L Class 0 [facility] Absolute lymphocyte countOrd ered By: Dr. Tejeda on 10-27-2022 Lymphocytes Auto (Unsp spec) [#/Vol] 0.72 10*3/uL 0.83-4.51 [facility] Basophil percentageOrdered B y: Dr. Tejeda on 10-27-2022 Basophils/100 WBC (Bld) 1.7 % 0-1 [facility] Bilirubin [Mass/Vol] 0.40 mg/dL 0.20-1.00 [facility] Comment on above: For patients on eltr ombopag therapy, use of Dimension [place] TBIL is not recommended. Chloride [Moles/Vol] 105 mmol/L 98-107 [facility] Eosinophils/100 WBC (Bld) 1.5 % 0-5 [facility] Glucose [Mass/Vol] 98 mg/dL 74-106 [facility] Neutrophils (Bld) [#/Vol] 4.8 10*3/uL 2.0-7.7 [facility] Neutrophils/100 WBC (Bld) 79.8 % 47-70 [facility] Potassium [Moles/Vol] 3.7 mmol/L 3.5-5.1 [facility] Protein [Mass/Vol] 6.9 g/dL 6.4-8.2 [facility] Sodium [Moles/Vol] 137 mmol/L 136-145 [facility] WBC (Bld) [#/Vol] 6.1 10*3/uL 4.4-11.0 [facility] Blood erythrocytes count (nu mber/volume)Ordered By: Dr. Tejeda on 10-27-2022 RBC (Bld) [#/Vol] 3.60 10*6/uL 4.2-5.[address] [facility] Blood hemoglobin measurement (mass/volume)Ordered By: Dr. Tejeda on 10-27-2022 Hemoglobin (Bld) [Mass/Vol] 11.8 g/dL 12.0-15.0 [facility] Blood lymphocytes/100 leukoc ytesOrdered By: Dr. Tejeda on 10-27-2022 Lymphocytes/100 WBC (Bld) 11.9 % 19-41 [facility] Blood monocytes/100 leukocyt esOrdered By: Dr. Tejeda on 10-27-2022 Monocytes/100 WBC (Bld) 4.8 % 0-10 [facility] Blood platelet mean volumeOr dered By: Dr. Tejeda on 10-27-2022 Platelet mean volume (Bld) [Entitic vol] 10.8 fL 6.2-12.0 [facility] Determination of erythrocyte mean corpuscular volume (MCV)Ordered By: Dr. Tejeda on 10-27-2022 MCV (RBC) [Entitic vol] 102.8 fL 81-99 [facility] Hematocrit Auto (Bld) [Volum e fraction]Ordered By: Dr. Tejeda on 10-27-2022 Hematocrit (Bld) [Volume fraction] 37.0 % 37-47 [facility] Laboratory - Chemistry and C hemistry - challengeOrdered By: Dr. Tejeda on 10-27-2022 ALP [Catalytic activity/Vol] 52 U/L 45-117 [facility] ALT [Catalytic activity/Vol] 22 U/L 13-56 [facility] CO2 [Moles/Vol] 30.0 mmol/L 21.0-32.0 [facility] Globulin (S) [Mass/Vol] 3.5 g/dL 2.2-4.2 [facility] Urea nitrogen/Creatinine [Mass ratio] 13.6 mg/mg 10-20 [facility] Laboratory - Hematology and Cell countsOrdered By: Dr. Tejeda on 10-27-2022 Erythrocyte distribution width (RBC) [Entitic vol] 48.7 fL 35.1-43.9 [facility] Erythrocyte distribution width (RBC) [Ratio] 13.1 % 11.6-14.6 [facility] Immature granulocytes/100 WBC (Bld) 0.300 % 0.0-0.9 [facility] Comment on above: IG% - Immature Granu locytes (promyelocytes, myelocytes and metamyelocytes) > 1% indicates that a LEFT SHIFT is Present. MCH (RBC) [Entitic mass] 32.8 pg 27.0-32.0 [facility] Nucleated RBC/100 WBC (Bld) [Ratio] 0 % 0-5 [facility] MCHC Auto (RBC) [Mass/Vol]Or dered By: Dr. Tejeda on 10-27-2022 MCHC (RBC) [Mass/Vol] 31.9 g/dL 32-36 [facility] No Panel InformationOrdered By: Dr. Tejeda on 10-27-2022 Estimated GFR (MDRD) Amer 68 mL/min >60 [facility] Comment on above: GFR Calc Estimated GFR (MDRD) Non-Af Amer 56 mL/min >60 [facility] Comment on above: Non- GFR Calc Platelets bldOrdered By: Dr. Tejeda on 10-27-2022 Platelets (Bld) [#/Vol] 351 10*3/uL 150-450 [facility] Serum or plasma albumin leatha urement (mass/volume)Ordered By: Dr. Tejeda on 10-27-2022 Albumin [Mass/Vol] 3.4 g/dL 3.2-5.0 [facility] Serum or plasma albumin/glob ulin mass ratioOrdered By: Dr. Tejeda on 10-27-2022 Albumin/Globulin [Mass ratio] 1.0 {ratio} 0.9-2.4 [facility] Serum or plasma calcium leatha urement (mass/volume)Ordered By: Dr. Tejeda on 10-27-2022 Calcium [Mass/Vol] 9.2 mg/dL 8.5-10.1 [facility] Serum or plasma creatinine m easurement (mass/volume)Ordered By: Dr. Tejeda on 10-27-2022 Creatinine [Mass/Vol] 1.03 mg/dL 0.55-1.02 [facility] Comment on above: The validity of the calculated GFR & GFRAA in patients over 70 years has not been determined. Clinical correlation is essential. Serum or plasma urea nitroge n measurement (mass/volume)Ordered By: Dr. Tejeda on 10-27-2022 Urea nitrogen [Mass/Vol] 14 mg/dL 7-18 [facility] Thin prep Papanicolaou smear with manual screeningOrdered By: Dr. Tejeda on 10-27-2022 Thin prep Papanicolaou smear with manual screening 24 U/L 15-37 [facility] Thin prep Papanicolaou smear with manual screening 2 5-15 [facility] Absolute lymphocyte countOrd ered By: Dr. Dalal on 10-09-2022 Lymphocytes Auto (Unsp spec) [#/Vol] 0.65 10*3/uL 0.83-4.51 [facility] Basophil percentageOrdered B y: Dr. Dalal on 10-09-2022 Basophils/100 WBC (Bld) 0.6 % 0-1 [facility] Chloride [Moles/Vol] 100 mmol/L 98-107 [facility] Eosinophils/100 WBC (Bld) 0.2 % 0-5 [facility] Glucose [Mass/Vol] 102 mg/dL 74-106 [facility] Comment on above: Fasting Glucose resu lt from 100 to 125 mg/dL suggests IMPAIRED HOMEOSTASIS per A.D.A. criteria. Neutrophils (Bld) [#/Vol] 7.1 10*3/uL 2.0-7.7 [facility] Neutrophils/100 WBC (Bld) 84.1 % 47-70 [facility] Potassium [Moles/Vol] 3.5 mmol/L 3.5-5.1 [facility] Sodium [Moles/Vol] 137 mmol/L 136-145 [facility] WBC (Bld) [#/Vol] 8.4 10*3/uL 4.4-11.0 [facility] Blood erythrocytes count (nu mber/volume)Ordered By: Dr. Dalal on 10-09-2022 RBC (Bld) [#/Vol] 3.70 10*6/uL 4.2-5.[address] [facility] Blood hemoglobin measurement (mass/volume)Ordered By: Dr. Dalal on 10-09-2022 Hemoglobin (Bld) [Mass/Vol] 12.1 g/dL 12.0-15.0 [facility] Blood lymphocytes/100 leukoc ytesOrdered By: Dr. Dalal on 10-09-2022 Lymphocytes/100 WBC (Bld) 7.7 % 19-41 [facility] Blood monocytes/100 leukocyt esOrdered By: Dr. Dalal on 10-09-2022 Monocytes/100 WBC (Bld) 6.8 % 0-10 [facility] Blood platelet mean volumeOr dered By: Dr. Dalal on 10-09-2022 Platelet mean volume (Bld) [Entitic vol] 10.2 fL 6.2-12.0 [facility] Determination of erythrocyte mean corpuscular volume (MCV)Ordered By: Dr. Dalal on 10-09-2022 MCV (RBC) [Entitic vol] 102.4 fL 81-99 [facility] Hematocrit Auto (Bld) [Volum e fraction]Ordered By: Dr. Dalal on 10-09-2022 Hematocrit (Bld) [Volume fraction] 37.9 % 37-47 [facility] Laboratory - Chemistry and C hemistry - challengeOrdered By: Dr. Dalal on 10-09-2022 CO2 [Moles/Vol] 31.0 mmol/L 21.0-32.0 [facility] Urea nitrogen/Creatinine [Mass ratio] 12.0 mg/mg 10-20 [facility] Laboratory - Hematology and Cell countsOrdered By: Dr. Dalal on 10-09-2022 Erythrocyte distribution width (RBC) [Entitic vol] 47.7 fL 35.1-43.9 [facility] Erythrocyte distribution width (RBC) [Ratio] 12.9 % 11.6-14.6 [facility] Immature granulocytes/100 WBC (Bld) 0.600 % 0.0-0.9 [facility] Comment on above: IG% - Immature Granu locytes (promyelocytes, myelocytes and metamyelocytes) > 1% indicates that a LEFT SHIFT is Present. MCH (RBC) [Entitic mass] 32.7 pg 27.0-32.0 [facility] Nucleated RBC/100 WBC (Bld) [Ratio] 0 % 0-5 [facility] MCHC Auto (RBC) [Mass/Vol]Or dered By: Dr. Dalal on 10-09-2022 MCHC (RBC) [Mass/Vol] 31.9 g/dL 32-36 [facility] No Panel InformationOrdered By: Dr. Dalal on 10-09-2022 Estimated Creatinine Clearance Calc 56.67 ml/min [facility] Estimated GFR (MDRD) Amer 86 mL/min >60 [facility] Comment on above: GFR Calc Estimated GFR (MDRD) Non-Af Amer 71 mL/min >60 [facility] Comment on above: Non- GFR Calc Platelets bldOrdered By: Dr. Dalal on 10-09-2022 Platelets (Bld) [#/Vol] 252 10*3/uL 150-450 [facility] Respiratory pathogens DNA an d RNA 12b panel ADIA+probe (Unsp spec)Ordered By: Dr. Stoner on 10-09-2022 Respiratory Panel (PCR) Human [place] [facility] Serum or plasma calcium leatha urement (mass/volume)Ordered By: Dr. Dalal on 10-09-2022 Calcium [Mass/Vol] 8.8 mg/dL 8.5-10.1 [facility] Serum or plasma creatinine m easurement (mass/volume)Ordered By: Dr. Dalal on 10-09-2022 Creatinine [Mass/Vol] 0.84 mg/dL 0.55-1.02 [facility] Comment on above: The validity of the calculated GFR & GFRAA in patients over 70 years has not been determined. Clinical correlation is essential. Serum or plasma urea nitroge n measurement (mass/volume)Ordered By: Dr. Dalal on 10-09-2022 Urea nitrogen [Mass/Vol] 10 mg/dL 7-18 [facility] Thin prep Papanicolaou smear with manual screeningOrdered By: Dr. Dalal on 10-09-2022 Thin prep Papanicolaou smear with manual screening 6 5-15 [facility] Absolute lymphocyte countOrd ered By: Dr. Concepcion on 10-08-2022 Lymphocytes Auto (Unsp spec) [#/Vol] 0.41 10*3/uL 0.83-4.51 [facility] Basophil percentageOrdered B y: Dr. Concepcion on 10-08-2022 Basophils/100 WBC (Bld) 0.6 % 0-1 [facility] Chloride [Moles/Vol] 99 mmol/L 98-107 [facility] Eosinophils/100 WBC (Bld) 0.3 % 0-5 [facility] Glucose [Mass/Vol] 141 mg/dL 74-106 [facility] Comment on above: Fasting Glucose resu lt greater than or equal to 126 mg/dL suggests DIABETES MELLITUS per A.D.A. criteria. Neutrophils (Bld) [#/Vol] 7.9 10*3/uL 2.0-7.7 [facility] Neutrophils/100 WBC (Bld) 87.4 % 47-70 [facility] Potassium [Moles/Vol] 3.4 mmol/L 3.5-5.1 [facility] Comment on above: Slight Hemolysis, Re sult may be falsely increased. Sodium [Moles/Vol] 134 mmol/L 136-145 [facility] WBC (Bld) [#/Vol] 9.0 10*3/uL 4.4-11.0 [facility] Blood erythrocytes count (nu mber/volume)Ordered By: Dr. Concepcion on 10-08-2022 RBC (Bld) [#/Vol] 3.48 10*6/uL 4.2-5.[address] [facility] Blood hemoglobin measurement (mass/volume)Ordered By: Dr. Concepcion on 10-08-2022 Hemoglobin (Bld) [Mass/Vol] 11.5 g/dL 12.0-15.0 [facility] Blood lymphocytes/100 leukoc ytesOrdered By: Dr. Concepcion on 10-08-2022 Lymphocytes/100 WBC (Bld) 4.5 % 19-41 [facility] Blood monocytes/100 leukocyt esOrdered By: Dr. Concepcion on 10-08-2022 Monocytes/100 WBC (Bld) 6.4 % 0-10 [facility] Blood platelet mean volumeOr dered By: Dr. Concepcion on 10-08-2022 Platelet mean volume (Bld) [Entitic vol] 10.1 fL 6.2-12.0 [facility] Determination of erythrocyte mean corpuscular volume (MCV)Ordered By: Dr. Concepcion on 10-08-2022 MCV (RBC) [Entitic vol] 99.4 fL 81-99 [facility] Hematocrit Auto (Bld) [Volum e fraction]Ordered By: Dr. Concepcion on 10-08-2022 Hematocrit (Bld) [Volume fraction] 34.6 % 37-47 [facility] INR in Blood by Coagulation assayOrdered By: Dr. Concepcion on 10-08-2022 INR Coag (Bld) [Relative time] 1.2 {INR} [facility] Influenza virus A and B and SARS-CoV-2 (COVID-19) Ag panel - Upper respiratory specimOrdered By: Dr. Concepcion on 10-08-2022 SARS-CoV-2 (COVID-19) RNA ADIA+probe Ql (Resp) [facility] Laboratory - Chemistry and C hemistry - challengeOrdered By: Dr. Concepcion on 10-08-2022 CO2 [Moles/Vol] 28.0 mmol/L 21.0-32.0 [facility] Urea nitrogen/Creatinine [Mass ratio] 15.1 mg/mg 10-20 [facility] Laboratory - CoagulationOrde red By: Dr. Concepcion on 10-08-2022 aPTT Coag (Bld) [Time] 29.6 s 24.1-36.2 [facility] PT Coag (PPP) [Time] 15.1 s 11.7-14.9 [facility] Laboratory - Hematology and Cell countsOrdered By: Dr. Concepcion on 10-08-2022 Erythrocyte distribution width (RBC) [Entitic vol] 45.3 fL 35.1-43.9 [facility] Erythrocyte distribution width (RBC) [Ratio] 12.7 % 11.6-14.6 [facility] Immature granulocytes/100 WBC (Bld) 0.800 % 0.0-0.9 [facility] Comment on above: IG% - Immature Granu locytes (promyelocytes, myelocytes and metamyelocytes) > 1% indicates that a LEFT SHIFT is Present. MCH (RBC) [Entitic mass] 33.0 pg 27.0-32.0 [facility] Nucleated RBC/100 WBC (Bld) [Ratio] 0 % 0-5 [facility] MCHC Auto (RBC) [Mass/Vol]Or dered By: Dr. Concepcion on 10-08-2022 MCHC (RBC) [Mass/Vol] 33.2 g/dL 32-36 [facility] No Panel InformationOrdered By: Dr. Concepcion on 10-08-2022 Estimated Creatinine Clearance Calc 55.35 ml/min [facility] Estimated GFR (MDRD) Amer 83 mL/min >60 [facility] Comment on above: GFR Calc Estimated GFR (MDRD) Non-Af Amer 69 mL/min >60 [facility] Comment on above: Non- GFR Calc Troponin I High Sensitivity 7 pg/mL 3.0-54.0 [facility] Comment on above: Please Note: New Anila t Units and Gender Specific Reference Ranges. For more information see Policy Stat Procedure [place] High Sensitivity Troponin (TNIH) and attachments. Platelets bldOrdered By: Dr. Concepcion on 10-08-2022 Platelets (Bld) [#/Vol] 243 10*3/uL 150-450 [facility] Serum or plasma calcium leatha urement (mass/volume)Ordered By: Dr. Concepcion on 10-08-2022 Calcium [Mass/Vol] 8.5 mg/dL 8.5-10.1 [facility] Serum or plasma creatinine m easurement (mass/volume)Ordered By: Dr. Concepcion on 10-08-2022 Creatinine [Mass/Vol] 0.86 mg/dL 0.55-1.02 [facility] Comment on above: The validity of the calculated GFR & GFRAA in patients over 70 years has not been determined. Clinical correlation is essential. Serum or plasma urea nitroge n measurement (mass/volume)Ordered By: Dr. Concepcion on 10-08-2022 Urea nitrogen [Mass/Vol] 13 mg/dL 7-18 [facility] Thin prep Papanicolaou smear with manual screeningOrdered By: Dr. Concepcion on 10-08-2022 Thin prep Papanicolaou smear with manual screening 7 5-15 [facility] Erythrocyte sedimentation ra teOrdered By: Dr. Bourgeois on 09-18-2022 ESR (Bld) [Velocity] 7 mm/h 0-30 [facility] Absolute lymphocyte countOrd ered By: Dr. Ugarte on 07-28-2022 Lymphocytes Auto (Unsp spec) [#/Vol] 0.83 10*3/uL 0.83-4.51 [facility] Basophil percentageOrdered B y: Dr. Ugarte on 07-28-2022 Basophils/100 WBC (Bld) 0.6 % 0-1 [facility] Bilirubin [Mass/Vol] 0.50 mg/dL 0.20-1.00 [facility] Comment on above: For patients on eltr ombopag therapy, use of Dimension [place] TBIL is not recommended. Chloride [Moles/Vol] 103 mmol/L 98-107 [facility] Eosinophils/100 WBC (Bld) 2.4 % 0-5 [facility] Glucose [Mass/Vol] 91 mg/dL 74-106 [facility] Neutrophils (Bld) [#/Vol] 3.7 10*3/uL 2.0-7.7 [facility] Neutrophils/100 WBC (Bld) 73.5 % 47-70 [facility] Potassium [Moles/Vol] 3.8 mmol/L 3.5-5.1 [facility] Protein [Mass/Vol] 6.2 g/dL 6.4-8.2 [facility] Sodium [Moles/Vol] 141 mmol/L 136-145 [facility] WBC (Bld) [#/Vol] 5.0 10*3/uL 4.4-11.0 [facility] Blood erythrocytes count (nu mber/volume)Ordered By: Dr. Ugarte on 07-28-2022 RBC (Bld) [#/Vol] 3.67 10*6/uL 4.2-5.[address] [facility] Blood hemoglobin measurement (mass/volume)Ordered By: Dr. Ugarte on 07-28-2022 Hemoglobin (Bld) [Mass/Vol] 12.0 g/dL 12.0-15.0 [facility] Blood lymphocytes/100 leukoc ytesOrdered By: Dr. Ugarte on 07-28-2022 Lymphocytes/100 WBC (Bld) 16.7 % 19-41 [facility] Blood monocytes/100 leukocyt esOrdered By: Dr. Ugarte on 07-28-2022 Monocytes/100 WBC (Bld) 6.6 % 0-10 [facility] Blood platelet mean volumeOr dered By: Dr. Ugarte on 07-28-2022 Platelet mean volume (Bld) [Entitic vol] 10.5 fL 6.2-12.0 [facility] Determination of erythrocyte mean corpuscular volume (MCV)Ordered By: Dr. Ugarte on 07-28-2022 MCV (RBC) [Entitic vol] 100.8 fL 81-99 [facility] Hematocrit Auto (Bld) [Volum e fraction]Ordered By: Dr. Ugarte on 07-28-2022 Hematocrit (Bld) [Volume fraction] 37.0 % 37-47 [facility] Laboratory - Chemistry and C hemistry - challengeOrdered By: Dr. Ugarte on 07-28-2022 ALP [Catalytic activity/Vol] 45 U/L 45-117 [facility] ALT [Catalytic activity/Vol] 25 U/L 13-56 [facility] CO2 [Moles/Vol] 30.0 mmol/L 21.0-32.0 [facility] Cobalamin (Vitamin B12) [Mass/Vol] 277 pg/mL 211-911 [facility] Globulin (S) [Mass/Vol] 2.8 g/dL 2.2-4.2 [facility] Urea nitrogen/Creatinine [Mass ratio] 14.8 mg/mg 10-20 [facility] Laboratory - Hematology and Cell countsOrdered By: Dr. Ugarte on 07-28-2022 Erythrocyte distribution width (RBC) [Entitic vol] 44.2 fL 35.1-43.9 [facility] Erythrocyte distribution width (RBC) [Ratio] 12.2 % 11.6-14.6 [facility] Immature granulocytes/100 WBC (Bld) 0.200 % 0.0-0.9 [facility] Comment on above: IG% - Immature Granu locytes (promyelocytes, myelocytes and metamyelocytes) > 1% indicates that a LEFT SHIFT is Present. MCH (RBC) [Entitic mass] 32.7 pg 27.0-32.0 [facility] Nucleated RBC/100 WBC (Bld) [Ratio] 0 % 0-5 [facility] MCHC Auto (RBC) [Mass/Vol]Or dered By: Dr. Ugarte on 07-28-2022 MCHC (RBC) [Mass/Vol] 32.4 g/dL 32-36 [facility] No Panel InformationOrdered By: Dr. Ugarte on 07-28-2022 Estimated GFR (MDRD) Amer 75 mL/min >60 [facility] Comment on above: GFR Calc Estimated GFR (MDRD) Non-Af Amer 62 mL/min >60 [facility] Comment on above: Non- GFR Calc Thyroid Stimulating Hormone (TSH) 2.31 uIU/mL 0.358-3.74 [facility] Whole Blood Vitamin B1 Level 125.8 nmol/L 66.5-200.0 [facility] Comment on above: Performed at: [email or web address] - [address] [id number] Director: Ava Jason MD, Phone: [phone] Platelets bldOrdered By: Dr. Ugarte on 07-28-2022 Platelets (Bld) [#/Vol] 295 10*3/uL 150-450 [facility] Serum or plasma albumin leatha urement (mass/volume)Ordered By: Dr. Ugarte on 07-28-2022 Albumin [Mass/Vol] 3.4 g/dL 3.2-5.0 [facility] Serum or plasma albumin/glob ulin mass ratioOrdered By: Dr. Ugarte on 07-28-2022 Albumin/Globulin [Mass ratio] 1.2 {ratio} 0.9-2.4 [facility] Serum or plasma calcium leatha urement (mass/volume)Ordered By: Dr. Ugarte on 07-28-2022 Calcium [Mass/Vol] 9.3 mg/dL 8.5-10.1 [facility] Serum or plasma creatinine m easurement (mass/volume)Ordered By: Dr. Ugarte on 07-28-2022 Creatinine [Mass/Vol] 0.94 mg/dL 0.55-1.02 [facility] Comment on above: The validity of the calculated GFR & GFRAA in patients over 70 years has not been determined. Clinical correlation is essential. Serum or plasma folate measu rement (mass/volume)Ordered By: Dr. Ugarte on 07-28-2022 Folate [Mass/Vol] 31.20 ng/mL 3.1-55.4 [facility] Serum or plasma urea nitroge n measurement (mass/volume)Ordered By: Dr. Ugarte on 07-28-2022 Urea nitrogen [Mass/Vol] 14 mg/dL 7-18 [facility] Thin prep Papanicolaou smear with manual screeningOrdered By: Dr. Ugarte on 07-28-2022 Thin prep Papanicolaou smear with manual screening 24 U/L 15-37 [facility] Thin prep Papanicolaou smear with manual screening 8 5-15 [facility] Absolute lymphocyte countOrd ered By: Dr. Tejeda on 07-24-2022 Lymphocytes Auto (Unsp spec) [#/Vol] 0.92 10*3/uL 0.83-4.51 [facility] Basophil percentageOrdered B y: Dr. Tejeda on 07-24-2022 Basophils/100 WBC (Bld) 1.3 % 0-1 [facility] Bilirubin [Mass/Vol] 0.60 mg/dL 0.20-1.00 [facility] Comment on above: For patients on eltr ombopag therapy, use of Dimension [place] TBIL is not recommended. Chloride [Moles/Vol] 102 mmol/L 98-107 [facility] Eosinophils/100 WBC (Bld) 1.5 % 0-5 [facility] Glucose [Mass/Vol] 84 mg/dL 74-106 [facility] Neutrophils (Bld) [#/Vol] 3.1 10*3/uL 2.0-7.7 [facility] Neutrophils/100 WBC (Bld) 66.1 % 47-70 [facility] Potassium [Moles/Vol] 3.6 mmol/L 3.5-5.1 [facility] Protein [Mass/Vol] 6.3 g/dL 6.4-8.2 [facility] Sodium [Moles/Vol] 137 mmol/L 136-145 [facility] WBC (Bld) [#/Vol] 4.7 10*3/uL 4.4-11.0 [facility] Blood erythrocytes count (nu mber/volume)Ordered By: Dr. Tejeda on 07-24-2022 RBC (Bld) [#/Vol] 3.52 10*6/uL 4.2-5.[address] [facility] Blood hemoglobin measurement (mass/volume)Ordered By: Dr. Tejeda on 07-24-2022 Hemoglobin (Bld) [Mass/Vol] 11.7 g/dL 12.0-15.0 [facility] Blood lymphocytes/100 leukoc ytesOrdered By: Dr. Tejeda on 07-24-2022 Lymphocytes/100 WBC (Bld) 19.6 % 19-41 [facility] Blood monocytes/100 leukocyt esOrdered By: Dr. Tejeda on 07-24-2022 Monocytes/100 WBC (Bld) 11.1 % 0-10 [facility] Blood platelet mean volumeOr dered By: Dr. Tejeda on 07-24-2022 Platelet mean volume (Bld) [Entitic vol] 10.9 fL 6.2-12.0 [facility] Determination of erythrocyte mean corpuscular volume (MCV)Ordered By: Dr. Tejeda on 07-24-2022 MCV (RBC) [Entitic vol] 102.0 fL 81-99 [facility] Hematocrit Auto (Bld) [Volum e fraction]Ordered By: Dr. Tejeda on 07-24-2022 Hematocrit (Bld) [Volume fraction] 35.9 % 37-47 [facility] Laboratory - Chemistry and C hemistry - challengeOrdered By: Dr. Tejeda on 07-24-2022 ALP [Catalytic activity/Vol] 50 U/L 45-117 [facility] ALT [Catalytic activity/Vol] 23 U/L 13-56 [facility] CO2 [Moles/Vol] 31.0 mmol/L 21.0-32.0 [facility] Globulin (S) [Mass/Vol] 2.8 g/dL 2.2-4.2 [facility] Urea nitrogen/Creatinine [Mass ratio] 13.3 mg/mg 10-20 [facility] Laboratory - Hematology and Cell countsOrdered By: Dr. Tejeda on 07-24-2022 Erythrocyte distribution width (RBC) [Entitic vol] 44.8 fL 35.1-43.9 [facility] Erythrocyte distribution width (RBC) [Ratio] 12.2 % 11.6-14.6 [facility] Immature granulocytes/100 WBC (Bld) 0.400 % 0.0-0.9 [facility] Comment on above: IG% - Immature Granu locytes (promyelocytes, myelocytes and metamyelocytes) > 1% indicates that a LEFT SHIFT is Present. MCH (RBC) [Entitic mass] 33.2 pg 27.0-32.0 [facility] Nucleated RBC/100 WBC (Bld) [Ratio] 0 % 0-5 [facility] MCHC Auto (RBC) [Mass/Vol]Or dered By: Dr. Tejeda on 07-24-2022 MCHC (RBC) [Mass/Vol] 32.6 g/dL 32-36 [facility] No Panel InformationOrdered By: Dr. Tejeda on 07-24-2022 Estimated GFR (MDRD) Amer 79 mL/min >60 [facility] Comment on above: GFR Calc Estimated GFR (MDRD) Non-Af Amer 66 mL/min >60 [facility] Comment on above: Non- GFR Calc Platelets bldOrdered By: Dr. Tejeda on 07-24-2022 Platelets (Bld) [#/Vol] 296 10*3/uL 150-450 [facility] Serum or plasma albumin leatha urement (mass/volume)Ordered By: Dr. Tejeda on 07-24-2022 Albumin [Mass/Vol] 3.5 g/dL 3.2-5.0 [facility] Serum or plasma albumin/glob ulin mass ratioOrdered By: Dr. Tejeda on 07-24-2022 Albumin/Globulin [Mass ratio] 1.2 {ratio} 0.9-2.4 [facility] Serum or plasma calcium leatha urement (mass/volume)Ordered By: Dr. Tejeda on 07-24-2022 Calcium [Mass/Vol] 9.0 mg/dL 8.5-10.1 [facility] Serum or plasma creatinine m easurement (mass/volume)Ordered By: Dr. Tejeda on 07-24-2022 Creatinine [Mass/Vol] 0.90 mg/dL 0.55-1.02 [facility] Comment on above: The validity of the calculated GFR & GFRAA in patients over 70 years has not been determined. Clinical correlation is essential. Serum or plasma urea nitroge n measurement (mass/volume)Ordered By: Dr. Tejeda on 07-24-2022 Urea nitrogen [Mass/Vol] 12 mg/dL 7-18 [facility] Thin prep Papanicolaou smear with manual screeningOrdered By: Dr. Tejeda on 07-24-2022 Thin prep Papanicolaou smear with manual screening 22 U/L 15-37 [facility] Thin prep Papanicolaou smear with manual screening 4 5-15 [facility] Absolute lymphocyte countOrd ered By: Dr. Tejeda on 05-07-2022 Lymphocytes Auto (Unsp spec) [#/Vol] 1.31 10*3/uL 0.83-4.51 [facility] Basophil percentageOrdered B y: Dr. Tejeda on 05-07-2022 Basophils/100 WBC (Bld) 0.7 % 0-1 [facility] Bilirubin [Mass/Vol] 0.40 mg/dL 0.20-1.00 [facility] Comment on above: For patients on eltr ombopag therapy, use of Dimension [place] TBIL is not recommended. Chloride [Moles/Vol] 105 mmol/L 98-107 [facility] Eosinophils/100 WBC (Bld) 1.6 % 0-5 [facility] Glucose [Mass/Vol] 84 mg/dL 74-106 [facility] Neutrophils (Bld) [#/Vol] 3.7 10*3/uL 2.0-7.7 [facility] Neutrophils/100 WBC (Bld) 65.6 % 47-70 [facility] Potassium [Moles/Vol] 3.5 mmol/L 3.5-5.1 [facility] Protein [Mass/Vol] 6.4 g/dL 6.4-8.2 [facility] Sodium [Moles/Vol] 141 mmol/L 136-145 [facility] WBC (Bld) [#/Vol] 5.7 10*3/uL 4.4-11.0 [facility] Blood erythrocytes count (nu mber/volume)Ordered By: Dr. Tejeda on 05-07-2022 RBC (Bld) [#/Vol] 3.63 10*6/uL 4.2-5.[address] [facility] Blood hemoglobin measurement (mass/volume)Ordered By: Dr. Tejeda on 05-07-2022 Hemoglobin (Bld) [Mass/Vol] 12.0 g/dL 12.0-15.0 [facility] Blood lymphocytes/100 leukoc ytesOrdered By: Dr. Tejeda on 05-07-2022 Lymphocytes/100 WBC (Bld) 23.1 % 19-41 [facility] Blood monocytes/100 leukocyt esOrdered By: Dr. Tejeda on 05-07-2022 Monocytes/100 WBC (Bld) 8.6 % 0-10 [facility] Blood platelet mean volumeOr dered By: Dr. Tejeda on 05-07-2022 Platelet mean volume (Bld) [Entitic vol] 11.0 fL 6.2-12.0 [facility] Determination of erythrocyte mean corpuscular volume (MCV)Ordered By: Dr. Tejeda on 05-07-2022 MCV (RBC) [Entitic vol] 100.6 fL 81-99 [facility] Hematocrit Auto (Bld) [Volum e fraction]Ordered By: Dr. Tejeda on 05-07-2022 Hematocrit (Bld) [Volume fraction] 36.5 % 37-47 [facility] Laboratory - Chemistry and C hemistry - challengeOrdered By: Dr. Tejeda on 05-07-2022 ALP [Catalytic activity/Vol] 53 U/L 45-117 [facility] ALT [Catalytic activity/Vol] 30 U/L 13-56 [facility] CO2 [Moles/Vol] 32.0 mmol/L 21.0-32.0 [facility] Globulin (S) [Mass/Vol] 3.1 g/dL 2.2-4.2 [facility] Urea nitrogen/Creatinine [Mass ratio] 16.8 mg/mg 10 [facility] Laboratory - Hematology and Cell countsOrdered By: Dr. Tejeda on 05-07-2022 Erythrocyte distribution width (RBC) [Entitic vol] 46.1 fL 35.1-43.9 [facility] Erythrocyte distribution width (RBC) [Ratio] 12.7 % 11.6-14.6 [facility] Immature granulocytes/100 WBC (Bld) 0.400 % 0.0-0.9 [facility] Comment on above: IG% - Immature Granu locytes (promyelocytes, myelocytes and metamyelocytes) > 1% indicates that a LEFT SHIFT is Present. MCH (RBC) [Entitic mass] 33.1 pg 27.0-32.0 [facility] Nucleated RBC/100 WBC (Bld) [Ratio] 0 % 0-5 [facility] MCHC Auto (RBC) [Mass/Vol]Or dered By: Dr. Tejeda on 05-07-2022 MCHC (RBC) [Mass/Vol] 32.9 g/dL 32-36 [facility] No Panel InformationOrdered By: Dr. Tejeda on 05-07-2022 Estimated GFR (MDRD) Amer 69 mL/min >60 [facility] Comment on above: GFR Calc Estimated GFR (MDRD) Non-Af Amer 57 mL/min >60 [facility] Comment on above: Non- GFR Calc Platelets bldOrdered By: Dr. Tejeda on 05-07-2022 Platelets (Bld) [#/Vol] 339 10*3/uL 150-450 [facility] Serum or plasma albumin leatha urement (mass/volume)Ordered By: Dr. Tejeda on 05-07-2022 Albumin [Mass/Vol] 3.3 g/dL 3.2-5.0 [facility] Serum or plasma albumin/glob ulin mass ratioOrdered By: Dr. Tejeda on 05-07-2022 Albumin/Globulin [Mass ratio] 1.1 {ratio} 0.9-2.4 [facility] Serum or plasma calcium leatha urement (mass/volume)Ordered By: Dr. Tejeda on 05-07-2022 Calcium [Mass/Vol] 9.0 mg/dL 8.5-10.1 [facility] Serum or plasma creatinine m easurement (mass/volume)Ordered By: Dr. Tejeda on 05-07-2022 Creatinine [Mass/Vol] 1.01 mg/dL 0.55-1.02 [facility] Comment on above: The validity of the calculated GFR & GFRAA in patients over 70 years has not been determined. Clinical correlation is essential. Serum or plasma urea nitroge n measurement (mass/volume)Ordered By: Dr. Tejeda on 05-07-2022 Urea nitrogen [Mass/Vol] 17 mg/dL 7-18 [facility] Thin prep Papanicolaou smear with manual screeningOrdered By: Dr. Tejeda on 05-07-2022 Thin prep Papanicolaou smear with manual screening 26 U/L 15-37 [facility] Thin prep Papanicolaou smear with manual screening 4 5-15 [facility] Basophil percentageOrdered B y: Dr. Stoner on 04-30-2022 Chloride [Moles/Vol] 115 mmol/L 98-107 [facility] Cholesterol [Mass/Vol] 150 mg/dL <200 [facility] Comment on above: <200 mg/dL Desirable 200-240 mg/dL Borderline >240 mg/dL High Risk Glucose [Mass/Vol] 90 mg/dL 74-106 [facility] Potassium [Moles/Vol] 3.6 mmol/L 3.5-5.1 [facility] Sodium [Moles/Vol] 147 mmol/L 136-145 [facility] Triglyceride [Mass/Vol] 99 mg/dL <199 [facility] Comment on above: The drugs N-Acetylcy steine and Metamizole may falsely depress this assay.Serum Triglycerides Reference Interval Normal <150 mg/dL Borderline high 150 - 199 mg/dL High 200 - 499 mg/dL Very High > or = 500 mg/dL Culture, urineOrdered By: Dr Kd Michele on 04-30-2022 Bacteria identified Cx Nom (U) Mixed Gram Pos & Gram Neg Org [facility] Laboratory - Chemistry and C hemistry - challengeOrdered By: Dr. Stoner on 04-30-2022 CO2 [Moles/Vol] 29.0 mmol/L 21.0-32.0 [facility] Urea nitrogen/Creatinine [Mass ratio] 14.3 mg/mg 10-20 [facility] No Panel InformationOrdered By: Dr. Stoner on 04-30-2022 Estimated Creatinine Clearance Calc 45.34 ml/min [facility] Estimated GFR (MDRD) Amer 66 mL/min >60 [facility] Comment on above: GFR Calc Estimated GFR (MDRD) Non-Af Amer 55 mL/min >60 [facility] Comment on above: Non- GFR Calc Thyroid Stimulating Hormone (TSH) 3.39 uIU/mL 0.358-3.74 [facility] Serum or plasma calcium leatha urement (mass/volume)Ordered By: Dr. Stoner on 04-30-2022 Calcium [Mass/Vol] 8.6 mg/dL 8.5-10.1 [facility] Serum or plasma cholesterol in HDL measurement (mass/volume)Ordered By: Dr. Stoner on 04-30-2022 Cholesterol in HDL [Mass/Vol] 56 mg/dL >40 [facility] Comment on above: The drugs N-Acetylcy steine and Metamizole may falsely depress this assay. Reference Range HDL <40 mg/dL Low HDL Cholesterol HDL >or= 60 mg/dL High HDL Cholesterol Serum or plasma cholesterol in VLDL measurement (mass/volume)Ordered By: Dr. Stoner on 04-30-2022 Cholesterol in VLDL [Mass/Vol] 20 mg/dL 5-40 [facility] Serum or plasma creatinine m easurement (mass/volume)Ordered By: Dr. Stoner on 04-30-2022 Creatinine [Mass/Vol] 1.05 mg/dL 0.55-1.02 [facility] Comment on above: The validity of the calculated GFR & GFRAA in patients over 70 years has not been determined. Clinical correlation is essential. Serum or plasma low density lipoprotein (LDL) cholesterol measurement (mass/volume)Ordered By: Dr. Stoner on 04-30-2022 Cholesterol in LDL [Mass/Vol] 74 mg/dL 0-130 [facility] Serum or plasma urea nitroge n measurement (mass/volume)Ordered By: Dr. Stoner on 04-30-2022 Urea nitrogen [Mass/Vol] 15 mg/dL 7-18 [facility] Thin prep Papanicolaou smear with manual screeningOrdered By: Dr. Stoner on 04-30-2022 Thin prep Papanicolaou smear with manual screening 3 5-15 [facility] Absolute lymphocyte countOrd ered By: Dr. Michele on 2022 Lymphocytes Auto (Unsp spec) [#/Vol] 1.88 10*3/uL 0.83-4.51 [facility] Basophil percentageOrdered B y: Dr. Michele on 2022 Basophil percentage 10-25 SEEN /hpf 0-5 [facility] Basophils/100 WBC (Bld) 0.4 % 0-1 [facility] Bilirubin [Mass/Vol] 0.60 mg/dL 0.20-1.00 [facility] Comment on above: For patients on eltr ombopag therapy, use of Dimension [place] TBIL is not recommended. Eosinophils/100 WBC (Bld) 0.2 % 0-5 [facility] Lactate [Moles/Vol] 0.9 mmol/L 0.4-2.[address] [facility] Neutrophils (Bld) [#/Vol] 6.0 10*3/uL 2.0-7.7 [facility] Neutrophils/100 WBC (Bld) 70.0 % 47-70 [facility] Protein [Mass/Vol] 6.3 g/dL 6.4-8.2 [facility] WBC (Bld) [#/Vol] 8.5 10*3/uL 4.4-11.0 [facility] Basophil percentageOrdered B y: Dr. Stoner on 2022 Basophil percentage 2.9 mg/dL 2.5-4.[address] [facility] Basophil percentageon 2021 Chloride [Moles/Vol] 107 mmol/L 98-107 [facility] Work Phone: [phone] Glucose [Mass/Vol] 86 mg/dL 74-106 [facility] Work Phone: Potassium [Moles/Vol] 3.2 mmol/L 3.5-5.1 [facility] Work Phone: [phone] Sodium [Moles/Vol] 142 mmol/L 136-145 [facility] Work Phone: Bilirubin Test strip Ql (U)O rdered By: Dr. Michele on 2022 Bilirubin Ql (U) 1 mg/dL Negative [facility] Comment on above: COLOR OF URINE MAY A FFECT DIPSTICK RESULTS. Blood erythrocytes count (nu mber/volume)Ordered By: Dr. Michele on 2022 RBC (Bld) [#/Vol] 3.64 10*6/uL 4.2-5.[address] [facility] Blood hemoglobin measurement (mass/volume)Ordered By: Dr. Michele on 2022 Hemoglobin (Bld) [Mass/Vol] 12.2 g/dL 12.0-15.0 [facility] Blood lymphocytes/100 leukoc ytesOrdered By: Dr. Michele on 2022 Lymphocytes/100 WBC (Bld) 22.0 % 19-41 [facility] Blood monocytes/100 leukocyt esOrdered By: Dr. Michele on 2022 Monocytes/100 WBC (Bld) 7.0 % 0-10 [facility] Blood platelet mean volumeOr dered By: Dr. Michele on 2022 Platelet mean volume (Bld) [Entitic vol] 10.5 fL 6.2-12.0 [facility] Determination of erythrocyte mean corpuscular volume (MCV)Ordered By: Dr. Michele on 2022 MCV (RBC) [Entitic vol] 100.5 fL 81-99 [facility] Hematocrit Auto (Bld) [Volum e fraction]Ordered By: Dr. Michele on 2022 Hematocrit (Bld) [Volume fraction] 36.6 % 37-47 [facility] INR in Blood by Coagulation assayOrdered By: Dr. Michele on 2022 INR Coag (Bld) [Relative time] 1.0 {INR} [facility] Ketones Test strip Ql (U)Ord ered By: Dr. Michele on 2022 Ketones Ql (U) 5 mg/dl Negative [facility] Laboratory - Chemistry and C hemistry - challengeOrdered By: Dr. Michele on 10-12-2022 ALP [Catalytic activity/Vol] 43 U/L 45-117 [facility] ALT [Catalytic activity/Vol] 25 U/L 13-56 [facility] Globulin (S) [Mass/Vol] 3.2 g/dL 2.2-4.2 [facility] Laboratory - Chemistry and C hemistry - challengeon 2022 CO2 [Moles/Vol] 30.0 mmol/L 21.0-32.0 [facility] Work Phone: Urea nitrogen/Creatinine [Mass ratio] 16.7 mg/mg 10- [facility] Work Phone: Laboratory - Chemistry and C hemistry - challengeOrdered By: Dr. Stoner on 2022 Magnesium [Mass/Vol] 2.2 mg/dL 1.6-2.6 [facility] Laboratory - CoagulationOrde red By: Dr. Michele on 2022 aPTT Coag (Bld) [Time] 26.3 s 24.1-36.2 [facility] PT Coag (PPP) [Time] 13.0 s 11.7-14.9 [facility] Laboratory - Hematology and Cell countsOrdered By: Dr. Michele on 2022 Erythrocyte distribution width (RBC) [Entitic vol] 46.2 fL 35.1-43.9 [facility] Erythrocyte distribution width (RBC) [Ratio] 12.5 % 11.6-14.6 [facility] Immature granulocytes/100 WBC (Bld) 0.400 % 0.0-0.9 [facility] Comment on above: IG% - Immature Granu locytes (promyelocytes, myelocytes and metamyelocytes) > 1% indicates that a LEFT SHIFT is Present. MCH (RBC) [Entitic mass] 33.5 pg 27.0-32.0 [facility] Nucleated RBC/100 WBC (Bld) [Ratio] 0 % 0-5 [facility] MCHC Auto (RBC) [Mass/Vol]Or dered By: Dr. Michele on 2022 MCHC (RBC) [Mass/Vol] 33.3 g/dL 32-36 [facility] Mucus LM Ql (Urine sed)Order ed By: Dr. Michele on 2022 Mucus Ql (Urine sed) 0 SEEN /hpf [facility] Nitrite Test strip Ql (U)Ord ered By: Dr. Michele on 2022 Nitrite Ql (U) Negative Negative [facility] No Panel Informationon 04-29 Estimated Creatinine Clearance Calc 44.86 ml/min [facility] Work Phone: Estimated GFR (MDRD) Amer 69 mL/min >60 [facility] Work Phone: Comment on above: GFR Calc Estimated GFR (MDRD) Non-Af Amer 57 mL/min >60 [facility] Work Phone: Comment on above: Non- GFR Calc No Panel InformationOrdered By: Dr. Michele on 2022 Troponin I High Sensitivity 8 pg/mL 3.0-54.0 [facility] Comment on above: Please Note: New Anila t Units and Gender Specific Reference Ranges. For more information see Policy Stat Procedure [place] High Sensitivity Troponin (TNIH) and attachments. Platelets bldOrdered By: Dr. Michele on 2022 Platelets (Bld) [#/Vol] 320 10*3/uL 150-450 [facility] Protein Test strip Ql (U)Ord ered By: Dr. Michele on 2022 Protein Ql (U) 30 mg/dl Negative [facility] Serum or plasma albumin leatha urement (mass/volume)Ordered By: Dr. Michele on 2022 Albumin [Mass/Vol] 3.1 g/dL 3.2-5.0 [facility] Serum or plasma albumin/glob ulin mass ratioOrdered By: Dr. Michele on 2022 Albumin/Globulin [Mass ratio] 1.0 {ratio} 0.9-2.4 [facility] Serum or plasma calcium leatha urement (mass/volume)on 2022 Calcium [Mass/Vol] 8.9 mg/dL 8.5-10.1 [facility] Work Phone: Serum or plasma creatinine m easurement (mass/volume)on 10-12-2022 Creatinine [Mass/Vol] 1.02 mg/dL 0.55-1.02 [facility] Work Phone: Comment on above: The validity of the calculated GFR & GFRAA in patients over 70 years has not been determined. Clinical correlation is essential. Serum or plasma urea nitroge n measurement (mass/volume)on 2022 Urea nitrogen [Mass/Vol] 17 mg/dL 7-18 [facility] Work Phone: Squamous epithelial cells de tection in urine sediment by light microscopyOrdered By: Dr. Michele on 2022 Epithelial cells.squamous LM Ql (Urine sed) 0-5 SEEN /hpf 5-10 [facility] Thin prep Papanicolaou smear with manual screeningOrdered By: Dr. Michele on 2022 Thin prep Papanicolaou smear with manual screening 21 U/L 15-37 [facility] Thin prep Papanicolaou smear with manual screeningon 2022 Thin prep Papanicolaou smear with manual screening 5 5-15 [facility] Work Phone: Urine blood detectionOrdered By: Dr. Michele on 2022 RBC Ql (U) Negative Negative [facility] RBC Ql (U) 0 SEEN /hpf 0-5 [facility] Urine clarityOrdered By: Dr. Michele on 2022 Clarity (U) Sl. Cloudy Clear [facility] Urine color determinationOrd ered By: Dr. Michele on 2022 Color (U) Yellow Yellow [facility] Urine glucose detectionOrder ed By: Dr. Michele on 2022 Glucose Ql (U) Normal mg/dl Normal [facility] Urine leukocyte esterase det ection by dipstickOrdered By: Dr. Michele on 2022 Leukocyte esterase Test strip Ql (U) 100 /ul Negative [facility] Urine pHOrdered By: Dr. Soren mccoy on 2022 pH (U) 7.0 [pH] 5.0 - 8.0 [facility] Urine sediment bacteria coun t by microscopy (number/high power field)Ordered By: Dr. Michele on 2022 Bacteria LM.HPF (Urine sed) [#/Area] 0 /[HPF] None Seen [facility] Urine specific gravity measu rementOrdered By: Dr. Michele on 2022 Specific gravity (U) [Rel density] 1.010 1.002-1.03 0 [facility] Urobilinogen Auto test strip Ql (U)Ordered By: Dr. Michele on 2022 Urobilinogen Ql (U) Normal mg/dl Normal [facility] No Panel Informationon 02-02 Miscellaneous Test Comment MAILED SPECIMEN [facility] Work Phone: [phone] Absolute lymphocyte counton 01-28-2022 Lymphocytes Auto (Unsp spec) [#/Vol] 1.16 10*3/uL 0.83-4.51 [facility] Work Phone: Basophil percentageon 2021 Basophils/100 WBC (Bld) 1.0 % 0-1 [facility] Work Phone: [phone] Bilirubin [Mass/Vol] 0.50 mg/dL 0.20-1.00 [facility] Work Phone: Comment on above: For patients on eltr ombopag therapy, use of Dimension [place] TBIL is not recommended. Chloride [Moles/Vol] 102 mmol/L 98-107 [facility] Work Phone: Eosinophils/100 WBC (Bld) 1.9 % 0-5 [facility] Work Phone: Glucose [Mass/Vol] 81 mg/dL 74-106 [facility] Work Phone: Neutrophils (Bld) [#/Vol] 3.4 10*3/uL 2.0-7.7 [facility] Work Phone: Neutrophils/100 WBC (Bld) 65.3 % 47-70 [facility] Work Phone: Potassium [Moles/Vol] 3.7 mmol/L 3.5-5.1 [facility] Work Phone: [phone] Protein [Mass/Vol] 6.4 g/dL 6.4-8.2 [facility] Work Phone: Sodium [Moles/Vol] 137 mmol/L 136-145 [facility] Work Phone: WBC (Bld) [#/Vol] 5.1 10*3/uL 4.4-11.0 [facility] Work Phone: [phone] Bilirubin Test strip Ql (U)o n 01-28-2022 Bilirubin Ql (U) Negative Negative [facility] Work Phone: [phone] Blood erythrocytes count (nu mber/volume)on 01-28-2022 RBC (Bld) [#/Vol] 3.58 10*6/uL 4.2-5.[address] [facility] Work Phone: [phone] Blood hemoglobin measurement (mass/volume)on 01-28-2022 Hemoglobin (Bld) [Mass/Vol] 11.7 g/dL 12.0-15.0 [facility] Work Phone: Blood lymphocytes/100 leukoc yteson 01-28-2022 Lymphocytes/100 WBC (Bld) 22.6 % 19-41 [facility] Work Phone: Blood monocytes/100 leukocyt eson 01-28-2022 Monocytes/100 WBC (Bld) 9.0 % 0-10 [facility] Work Phone: Blood platelet mean volumeon 01-28-2022 Platelet mean volume (Bld) [Entitic vol] 10.8 fL 6.2-12.0 [facility] Work Phone: [phone] Determination of erythrocyte mean corpuscular volume (MCV)on 01-28-2022 MCV (RBC) [Entitic vol] 99.4 fL 81-99 [facility] Work Phone: Hematocrit Auto (Bld) [Volum e fraction]on 01-28-2022 Hematocrit (Bld) [Volume fraction] 35.6 % 37-47 [facility] Work Phone: [phone] Ketones Test strip Ql (U)on 01-28-2022 Ketones Ql (U) Negative Negative [facility] Work Phone: [phone] Laboratory - Chemistry and C hemistry - challengeon 01-28-2022 ALP [Catalytic activity/Vol] 58 U/L 45-117 [facility] Work Phone: ALT [Catalytic activity/Vol] 26 U/L 13-56 [facility] Work Phone: CO2 [Moles/Vol] 31.0 mmol/L 21.0-32.0 [facility] Work Phone: Globulin (S) [Mass/Vol] 3.0 g/dL 2.2-4.2 [facility] Work Phone: [phone] Urea nitrogen/Creatinine [Mass ratio] 16.2 mg/mg 10-20 [facility] Work Phone: Laboratory - Hematology and Cell countson 01-28-2022 Erythrocyte distribution width (RBC) [Entitic vol] 45.3 fL 35.1-43.9 [facility] Work Phone: [phone] Erythrocyte distribution width (RBC) [Ratio] 12.6 % 11.6-14.6 [facility] Work Phone: [phone] Immature granulocytes/100 WBC (Bld) 0.200 % 0.0-0.9 [facility] Work Phone: [phone] Comment on above: IG% - Immature Granu locytes (promyelocytes, myelocytes and metamyelocytes) > 1% indicates that a LEFT SHIFT is Present. MCH (RBC) [Entitic mass] 32.7 pg 27.0-32.0 [facility] Work Phone: Nucleated RBC/100 WBC (Bld) [Ratio] 0 % 0-5 [facility] Work Phone: MCHC Auto (RBC) [Mass/Vol]on 01-28-2022 MCHC (RBC) [Mass/Vol] 32.9 g/dL 32-36 [facility] Work Phone: [phone] Nitrite Test strip Ql (U)on 01-28-2022 Nitrite Ql (U) Negative Negative [facility] Work Phone: No Panel Informationon 01-28 Estimated GFR (MDRD) Amer 83 mL/min >60 [facility] Work Phone: Comment on above: GFR Calc Estimated GFR (MDRD) Non-Af Amer 69 mL/min >60 [facility] Work Phone: Comment on above: Non- GFR Calc Platelets bldon 01-28-2022 Platelets (Bld) [#/Vol] 297 10*3/uL 150-450 [facility] Work Phone: Protein Test strip Ql (U)on 01-28-2022 Protein Ql (U) Negative Negative [facility] Work Phone: Serum or plasma albumin leatha urement (mass/volume)on 01-28-2022 Albumin [Mass/Vol] 3.4 g/dL 3.2-5.0 [facility] Work Phone: Serum or plasma albumin/glob ulin mass ratioon 01-28-2022 Albumin/Globulin [Mass ratio] 1.1 {ratio} 0.9-2.4 [facility] Work Phone: Serum or plasma calcium leatha urement (mass/volume)on 01-28-2022 Calcium [Mass/Vol] 9.1 mg/dL 8.5-10.1 [facility] Work Phone: Serum or plasma creatinine m easurement (mass/volume)on 01-28-2022 Creatinine [Mass/Vol] 0.86 mg/dL 0.55-1.02 [facility] Work Phone: Comment on above: The validity of the calculated GFR & GFRAA in patients over 70 years has not been determined. Clinical correlation is essential. Serum or plasma urea nitroge n measurement (mass/volume)on 01-28-2022 Urea nitrogen [Mass/Vol] 14 mg/dL 7-18 [facility] Work Phone: Thin prep Papanicolaou smear with manual screeningon 01-28-2022 Thin prep Papanicolaou smear with manual screening 26 U/L 15-37 [facility] Work Phone: [phone] Thin prep Papanicolaou smear with manual screening 4 5-15 [facility] Work Phone: [phone] Urine blood detectionon 01-16 RBC Ql (U) Negative Negative [facility] Work Phone: Urine clarityon 01-28-2022 Clarity (U) Clear Clear [facility] Work Phone: [phone] Urine color determinationon 01-28-2022 Color (U) Yellow Yellow [facility] Work Phone: Urine creatinine measurement (mass/volume)on 01-28-2022 Creatinine (U) [Mass/Vol] 47.80 mg/dL NO RANGE EST. [facility] Work Phone: [phone] Urine glucose detectionon Glucose Ql (U) Normal mg/dl Normal [facility] Work Phone: Urine leukocyte esterase det ection by dipstickon 01-28-2022 Leukocyte esterase Test strip Ql (U) 25 /ul Negative [facility] Work Phone: Urine pHon 01-28-2022 pH (U) 7.0 [pH] 5.0 - 8.0 [facility] Work Phone: Urine protein measurement (m ass/volume)on 01-28-2022 Protein (U) [Mass/Vol] 14.4 mg/dL 0.0-11.8 [facility] Work Phone: Urine protein/creatinine mas s ratioon 01-28-2022 Protein/Creatinine (U) [Mass ratio] 301 mg/g CRE 0-200 [facility] Work Phone: Urine specific gravity measu rementon 01-28-2022 Specific gravity (U) [Rel density] 1.010 1.002-1.03 0 [facility] Work Phone: Urobilinogen Auto test strip Ql (U)on 01-28-2022 Urobilinogen Ql (U) Normal mg/dl Normal [facility] Work Phone: Absolute lymphocyte counton 10-28-2021 Lymphocytes Auto (Unsp spec) [#/Vol] 1.42 10*3/uL 0.83-4.51 [facility] Work Phone: Basophil percentageon 2021 Basophils/100 WBC (Bld) 0.9 % 0-1 [facility] Work Phone: Bilirubin [Mass/Vol] 0.50 mg/dL 0.20-1.00 [facility] Work Phone: Comment on above: For patients on eltr ombopag therapy, use of Dimension [place] TBIL is not recommended. Chloride [Moles/Vol] 98 mmol/L 98-107 [facility] Work Phone: Eosinophils/100 WBC (Bld) 2.2 % 0-5 [facility] Work Phone: Glucose [Mass/Vol] 98 mg/dL 74-106 [facility] Work Phone: Neutrophils (Bld) [#/Vol] 3.9 10*3/uL 2.0-7.7 [facility] Work Phone: Neutrophils/100 WBC (Bld) 65.5 % 47-70 [facility] Work Phone: Potassium [Moles/Vol] 3.1 mmol/L 3.5-5.1 [facility] Work Phone: Protein [Mass/Vol] 6.8 g/dL 6.4-8.2 [facility] Work Phone: Sodium [Moles/Vol] 136 mmol/L 136-145 [facility] Work Phone: WBC (Bld) [#/Vol] 5.9 10*3/uL 4.4-11.0 [facility] Work Phone: Blood erythrocytes count (nu mber/volume)on 10-28-2021 RBC (Bld) [#/Vol] 3.60 10*6/uL 4.2-5.[address] [facility] Work Phone: Blood hemoglobin measurement (mass/volume)on 10-28-2021 Hemoglobin (Bld) [Mass/Vol] 11.7 g/dL 12.0-15.0 [facility] Work Phone: Blood lymphocytes/100 leukoc yteson 10-28-2021 Lymphocytes/100 WBC (Bld) 24.2 % 19-41 [facility] Work Phone: Blood monocytes/100 leukocyt eson 10-28-2021 Monocytes/100 WBC (Bld) 7.0 % 0-10 [facility] Work Phone: Blood platelet mean volumeon 10-28-2021 Platelet mean volume (Bld) [Entitic vol] 10.5 fL 6.2-12.0 [facility] Work Phone: [phone] Determination of erythrocyte mean corpuscular volume (MCV)on 10-28-2021 MCV (RBC) [Entitic vol] 98.6 fL 81-99 [facility] Work Phone: [phone] Hematocrit Auto (Bld) [Volum e fraction]on 10-28-2021 Hematocrit (Bld) [Volume fraction] 35.5 % 37-47 [facility] Work Phone: [phone] Laboratory - Chemistry and C hemistry - challengeon 10-28-2021 ALP [Catalytic activity/Vol] 64 U/L 45-117 [facility] Work Phone: ALT [Catalytic activity/Vol] 25 U/L 13-56 [facility] Work Phone: [phone] CO2 [Moles/Vol] 32.0 mmol/L 21.0-32.0 [facility] Work Phone: [phone] Globulin (S) [Mass/Vol] 3.4 g/dL 2.2-4.2 [facility] Work Phone: [phone] Urea nitrogen/Creatinine [Mass ratio] 13.8 mg/mg 10-20 [facility] Work Phone: [phone] Laboratory - Hematology and Cell countson 10-28-2021 Erythrocyte distribution width (RBC) [Entitic vol] 44.1 fL 35.1-43.9 [facility] Work Phone: Erythrocyte distribution width (RBC) [Ratio] 12.3 % 11.6-14.6 [facility] Work Phone: Immature granulocytes/100 WBC (Bld) 0.200 % 0.0-0.9 [facility] Work Phone: Comment on above: IG% - Immature Granu locytes (promyelocytes, myelocytes and metamyelocytes) > 1% indicates that a LEFT SHIFT is Present. MCH (RBC) [Entitic mass] 32.5 pg 27.0-32.0 [facility] Work Phone: Nucleated RBC/100 WBC (Bld) [Ratio] 0 % 0-5 [facility] Work Phone: MCHC Auto (RBC) [Mass/Vol]on 10-28-2021 MCHC (RBC) [Mass/Vol] 33.0 g/dL 32-36 [facility] Work Phone: No Panel Informationon 10-28 Estimated GFR (MDRD) Amer 83 mL/min >60 [facility] Work Phone: Comment on above: GFR Calc Estimated GFR (MDRD) Non-Af Amer 68 mL/min >60 [facility] Work Phone: Comment on above: Non- GFR Calc Platelets bldon 10-28-2021 Platelets (Bld) [#/Vol] 354 10*3/uL 150-450 [facility] Work Phone: Serum or plasma albumin leatha urement (mass/volume)on 10-28-2021 Albumin [Mass/Vol] 3.4 g/dL 3.2-5.0 [facility] Work Phone: Serum or plasma albumin/glob ulin mass ratioon 10-28-2021 Albumin/Globulin [Mass ratio] 1.0 {ratio} 0.9-2.4 [facility] Work Phone: Serum or plasma calcium leatha urement (mass/volume)on 10-28-2021 Calcium [Mass/Vol] 8.7 mg/dL 8.5-10.1 [facility] Work Phone: Serum or plasma creatinine m easurement (mass/volume)on 10-28-2021 Creatinine [Mass/Vol] 0.87 mg/dL 0.55-1.02 [facility] Work Phone: Comment on above: The validity of the calculated GFR & GFRAA in patients over 70 years has not been determined. Clinical correlation is essential. Serum or plasma urea nitroge n measurement (mass/volume)on 10-28-2021 Urea nitrogen [Mass/Vol] 12 mg/dL 7-18 [facility] Work Phone: Thin prep Papanicolaou smear with manual screeningon 10-28-2021 Thin prep Papanicolaou smear with manual screening 26 U/L 15-37 [facility] Work Phone: Thin prep Papanicolaou smear with manual screening 6 5-15 [facility] Work Phone: Absolute lymphocyte counton 08-05-2021 Lymphocytes Auto (Unsp spec) [#/Vol] 1.41 10*3/uL 0.83-4.51 [facility] Work Phone: Basophil percentageon 2021 Basophils/100 WBC (Bld) 1.1 % 0-1 [facility] Work Phone: Bilirubin [Mass/Vol] 0.50 mg/dL 0.20-1.00 [facility] Work Phone: Comment on above: For patients on eltr ombopag therapy, use of Dimension [place] TBIL is not recommended. Chloride [Moles/Vol] 99 mmol/L 98-107 [facility] Work Phone: Eosinophils/100 WBC (Bld) 1.3 % 0-5 [facility] Work Phone: Glucose [Mass/Vol] 84 mg/dL 74-106 [facility] Work Phone: Neutrophils (Bld) [#/Vol] 3.4 10*3/uL 2.0-7.7 [facility] Work Phone: Neutrophils/100 WBC (Bld) 62.0 % 47-70 [facility] Work Phone: Potassium [Moles/Vol] 3.2 mmol/L 3.5-5.1 [facility] Work Phone: Protein [Mass/Vol] 7.0 g/dL 6.4-8.2 [facility] Work Phone: Sodium [Moles/Vol] 139 mmol/L 136-145 [facility] Work Phone: WBC (Bld) [#/Vol] 5.5 10*3/uL 4.4-11.0 [facility] Work Phone: Blood erythrocytes count (nu mber/volume)on 08-05-2021 RBC (Bld) [#/Vol] 3.76 10*6/uL 4.2-5.4 [facility] Work Phone: Blood hemoglobin measurement (mass/volume)on 08-05-2021 Hemoglobin (Bld) [Mass/Vol] 12.3 g/dL 12.0-15.0 [facility] Work Phone: Blood lymphocytes/100 leukoc yteson 08-05-2021 Lymphocytes/100 WBC (Bld) 25.7 % 19-41 [facility] Work Phone: Blood monocytes/100 leukocyt eson 08-05-2021 Monocytes/100 WBC (Bld) 9.7 % 0-10 [facility] Work Phone: Blood platelet mean volumeon 08-05-2021 Platelet mean volume (Bld) [Entitic vol] 11.0 fL 6.2-12.0 [facility] Work Phone: Determination of erythrocyte mean corpuscular volume (MCV)on 08-05-2021 MCV (RBC) [Entitic vol] 97.6 fL 81-99 [facility] Work Phone: [phone] Hematocrit Auto (Bld) [Volum e fraction]on 08-05-2021 Hematocrit (Bld) [Volume fraction] 36.7 % 37-47 [facility] Work Phone: [phone] Laboratory - Chemistry and C hemistry - challengeon 08-05-2021 ALP [Catalytic activity/Vol] 44 U/L 45-117 [facility] Work Phone: ALT [Catalytic activity/Vol] 33 U/L 13-56 [facility] Work Phone: CO2 [Moles/Vol] 33.0 mmol/L 21.0-32.0 [facility] Work Phone: [phone] Globulin (S) [Mass/Vol] 3.3 g/dL 2.2-4.2 [facility] Work Phone: [phone] Urea nitrogen/Creatinine [Mass ratio] 17.6 mg/mg 10-20 [facility] Work Phone: Laboratory - Hematology and Cell countson 08-05-2021 Erythrocyte distribution width (RBC) [Entitic vol] 44.2 fL 35.1-43.9 [facility] Work Phone: [phone] Erythrocyte distribution width (RBC) [Ratio] 12.6 % 11.6-14.6 [facility] Work Phone: [phone] Immature granulocytes/100 WBC (Bld) 0.200 % 0.0-0.9 [facility] Work Phone: [phone] Comment on above: IG% - Immature Granu locytes (promyelocytes, myelocytes and metamyelocytes) > 1% indicates that a LEFT SHIFT is Present. MCH (RBC) [Entitic mass] 32.7 pg 27.0-32.0 [facility] Work Phone: Nucleated RBC/100 WBC (Bld) [Ratio] 0 % 0-5 [facility] Work Phone: MCHC Auto (RBC) [Mass/Vol]on 08-05-2021 MCHC (RBC) [Mass/Vol] 33.5 g/dL 32-36 [facility] Work Phone: No Panel Informationon 08-05 Estimated GFR (MDRD) Amer 85 mL/min >60 [facility] Work Phone: Comment on above: GFR Calc Estimated GFR (MDRD) Non-Af Amer 70 mL/min >60 [facility] Work Phone: Comment on above: Non- GFR Calc Platelets bldon 08-05-2021 Platelets (Bld) [#/Vol] 324 10*3/uL 150-450 [facility] Work Phone: Serum or plasma albumin leatha urement (mass/volume)on 08-05-2021 Albumin [Mass/Vol] 3.7 g/dL 3.2-5.0 [facility] Work Phone: Serum or plasma albumin/glob ulin mass ratioon 08-05-2021 Albumin/Globulin [Mass ratio] 1.1 {ratio} 0.9-2.4 [facility] Work Phone: Serum or plasma calcium leatha urement (mass/volume)on 08-05-2021 Calcium [Mass/Vol] 10.0 mg/dL 8.5-10.1 [facility] Work Phone: Serum or plasma creatinine m easurement (mass/volume)on 08-05-2021 Creatinine [Mass/Vol] 0.85 mg/dL 0.55-1.02 [facility] Work Phone: Comment on above: The validity of the calculated GFR & GFRAA in patients over 70 years has not been determined. Clinical correlation is essential. Serum or plasma urea nitroge n measurement (mass/volume)on 08-05-2021 Urea nitrogen [Mass/Vol] 15 mg/dL -18 [facility] Work Phone: Thin prep Papanicolaou smear with manual screeningon 08-05-2021 Thin prep Papanicolaou smear with manual screening 26 U/L 15-37 [facility] Work Phone: Thin prep Papanicolaou smear with manual screening 7 5-15 [facility] Work Phone: CNPTOUTREACHon 01-18-2020 KATHYTOUTRMICHAEL Patient Outreach (IN [facility]) YADIRA PEREZ ([id number]) 1950 F Date Time Provider Department 01/18/20 MANUELITO FREGOSO (RN) INTJAMIN During your visit today, we recorded the following information about you: Manuelito Fregoso RN, RN 01/18/2020 11:57 AM Signed COVID-19 POSITIVE PATIENT OUTREACH DAILY CALL Monitoring Call: Day from symptom onset 12/25/19 Lizy, this is the [facility] calling, may I speak to Yadira Perez I'm calling you to check in and ensure your needs are being met. Can we discuss if you are getting better or worse and how we can work together to help you recover? Patient identified by name and OUTCOME: I was cleared by the health department on the . I am not sure why I keep getting calls and doing the surveys. I am fine. I have been out and about and even went to the dentist COVID-19 Caregiver Adult Monitoring There is no flowsheet data to display. Disposition: Declines Monitoring This is a stressful time for you and we want you to know you are supported. Would you like resources on how best to manage stress and anxiety during these times? No (Done) If you are worsening in any way please call your Primary Care Provider right away. [facility] patients may call: ? [facility] Nurse social professionals at [phone] ? Their PCP Office Caregivers may call: ? [facility] Employee Hotline: [phone] Patient verbalizes understanding of information provided. Denies any further questions at this time. Please visit CDC.gov website for any updated information about Coronavirus. You can also find information on the [facility] website. Additional information can be found on the CDC and [facility] web sites: https://www.cdc.gov/coronav irus/2019-nCoV/index.html [email or web address] SIGNATURE: Manuelito Fregoso RN PATIENT NAME: Yadira Perez DATE: January 18, 2020 TIME: 11:48 AM Allergies As of Date: 01/18/2020 Noted Allergy Reaction CODEINE 08/29/2018 2 - Rash Date Reviewed: 01/02/2020 Reviewed by: Jessica Hale LPN - Fully Assessed Reason for Visit: Covid Follow Up [4903] Cmt: Covid Follow up Prescriptions as of 01/18/2020 Sig: BENZONATATE 100 MG CAPSULE Take 1-2 capsules tid prn METHOTREXATE SODIUM 2.5 MG TA* Take 15 mg by mouth one time * ERGOCALCIFEROL (VITAMIN D2) 5* Take 1 tablet by mouth twice * BENZONATATE 100 MG CAPSULE Take 100 mg by mouth three ti* ALBUTEROL SULFATE HFA 90 MCG/* Inhale 2 Puffs as instructed * IPRATROPIUM BROMIDE 17 MCG/AC* Inhale 2 Puffs as instructed * MUCINEX 600 MG TABLET, EXTEND* Take 2 tablets by mouth twice* Patient not taking: Reported on 01/02/2020 HYDROXYCHLOROQUINE 200 MG TAB* Take 2 tablets by mouth once * GUAIFENESIN ER 600 MG TABLET,* Take 2 tablets by mouth twice* Patient not taking: Reported on 01/02/2020 FLUTICASONE PROPIONATE 50 MCG* Use 1 [place] in each nostril t* Patient not taking: Reported on 08/10/2019 CELECOXIB 200 MG CAPSULE Take 200 mg by mouth twice da* IBANDRONATE 150 MG TABLET Take 150 mg by mouth once blanca* CALCIUM CARBONATE 500 MG (1,2* Take 1 tablet by mouth twice * EMERGEN-C IMMUNE PLUS ORAL Take by mouth. DULOXETINE 30 MG CAPSULE,GONZALO* Take 30 mg by mouth twice manav* HYDROCODONE 5 MG-ACETAMINOPHE* Take 1 tablet by mouth every * LORATADINE 10 MG TABLET Take 1 tablet by mouth as nee* BENZONATATE 100 MG CAPSULE Take 1 capsule by mouth three* Patient not taking: Reported on 08/10/2019 MELOXICAM ORAL Take by mouth. TRAMADOL ORAL Take by mouth. HYDROCHLOROTHIAZIDE 12.5 MG C* Take 1 capsule by mouth once * PROPRANOLOL 40 MG TABLET Take 80 mg by mouth once amparo* IRON 325 MG (65 MG IRON) TABL* Take one(1) tablet daily. Problem List As Of Date: 01/18/2020 (None) Encounter Status:Closed by MANUELITO FREGOSO on 01/18/20 Normal [facility] PROGRESSon 01-18-2020 PROGRESS HNO ID: [id number] Author: Manuelito (Rn) NICOLLE Fregoso Service: ? Author Type: Registered Nurse Type: Progress Notes Filed: 01/18/2020 11:57 AM Note Text: COVID-19 POSITIVE PATIENT OUTREACH DAILY CALL Monitoring Call: Day from symptom onset 12/25/19 Lizy, this is the [facility] calling, may I speak to Yadira Perez I'm calling you to check in and ensure your needs are being met. Can we discuss if you are getting better or worse and how we can work together to help you recover? Patient identified by name and OUTCOME: I was cleared by the health department on the . I am not sure why I keep getting calls and doing the surveys. I am fine. I have been out and about and even went to the dentist COVID-19 Caregiver Adult Monitoring There is no flowsheet data to display. Disposition: Declines Monitoring This is a stressful time for you and we want you to know you are supported. Would you like resources on how best to manage stress and anxiety during these times? No (Done) If you are worsening in any way please call your Primary Care Provider right away. [facility] patients may call: ? [facility] Nurse social professionals at [phone] ? Their PCP Office Caregivers may call: ? [facility] Employee Hotline: [phone] Patient verbalizes understanding of information provided. Denies any further questions at this time. Please visit CDC.gov website for any updated information about Coronavirus. You can also find information on the [facility] website. Additional information can be found on the CDC and [facility] web sites: https://www.cdc.gov/coronav irus/2019-nCoV/index.html [email or web address] SIGNATURE: Manuelito Fregoso RN PATIENT NAME: Yadira Brown Ana DATE: January 18, 2020 TIME: 11:48 AM Normal [facility] CNPTOUTREACHon 01-17-2020 CNPTOUTREA Patient Outreach (AM [facility]) YADIRA PEREZ ([id number]) 1950 F Date Time Provider Department 01/17/20 KASEY TURK (INVESTIGATOR VICE) [facility] During your visit today, we recorded the following information about you: KATHRINE Franklin Tech 01/17/2020 12:29 PM Signed Voice Message Hellucierna, this is the [facility] calling, a member of your household has been diagnosed as positive for COVID-19. We are sorry we missed you, but your care is important to us. You will be receiving a call daily for the next few weeks. Please take a moment to answer our calls. If any of your symptoms have worsened, please call you PCP office to discuss. [facility] and [facility] patients may call: ? [facility] Nurse social professionals at [phone] ? Their PCP Office Caregivers may call: ? [facility] Employee Hotline: [phone] If you are finding it more difficult to breathe, or more short of breath when walking or climbing stairs, please go to the nearest ED. Inform the staff that you are COVID positive and you are having more shortness of breath while doing activities. SIGNATURE: KATHRINE Franklin PATIENT NAME: Yadira Perez DATE: January 17, 2020 TIME: 12:29 PM Allergies As of Date: 01/17/2020 Noted Allergy Reaction CODEINE 08/29/2018 2 - Rash Date Reviewed: 01/02/2020 Reviewed by: Jessica Hale LPN - Fully Assessed Reason for Visit: Covid Follow Up [1477] Cmt: daily follow up Prescriptions as of 01/17/2020 Sig: BENZONATATE 100 MG CAPSULE Take 1-2 capsules tid prn METHOTREXATE SODIUM 2.5 MG TA* Take 15 mg by mouth one time * ERGOCALCIFEROL (VITAMIN D2) 5* Take 1 tablet by mouth twice * BENZONATATE 100 MG CAPSULE Take 100 mg by mouth three ti* ALBUTEROL SULFATE HFA 90 MCG/* Inhale 2 Puffs as instructed * IPRATROPIUM BROMIDE 17 MCG/AC* Inhale 2 Puffs as instructed * MUCINEX 600 MG TABLET, EXTEND* Take 2 tablets by mouth twice* Patient not taking: Reported on 01/02/2020 HYDROXYCHLOROQUINE 200 MG TAB* Take 2 tablets by mouth once * GUAIFENESIN ER 600 MG TABLET,* Take 2 tablets by mouth twice* Patient not taking: Reported on 01/02/2020 FLUTICASONE PROPIONATE 50 MCG* Use 1 [place] in each nostril t* Patient not taking: Reported on 08/10/2019 CELECOXIB 200 MG CAPSULE Take 200 mg by mouth twice da* IBANDRONATE 150 MG TABLET Take 150 mg by mouth once blanca* CALCIUM CARBONATE 500 MG (1,2* Take 1 tablet by mouth twice * EMERGEN-C IMMUNE PLUS ORAL Take by mouth. DULOXETINE 30 MG CAPSULE,GONZALO* Take 30 mg by mouth twice manav* HYDROCODONE 5 MG-ACETAMINOPHE* Take 1 tablet by mouth every * LORATADINE 10 MG TABLET Take 1 tablet by mouth as nee* BENZONATATE 100 MG CAPSULE Take 1 capsule by mouth three* Patient not taking: Reported on 08/10/2019 MELOXICAM ORAL Take by mouth. TRAMADOL ORAL Take by mouth. HYDROCHLOROTHIAZIDE 12.5 MG C* Take 1 capsule by mouth once * PROPRANOLOL 40 MG TABLET Take 80 mg by mouth once amparo* IRON 325 MG (65 MG IRON) TABL* Take one(1) tablet daily. Problem List As Of Date: 01/17/2020 (None) Encounter Status:Closed by KASEY TURK on 01/17/20 [facility]17-2020 PROGRESS HNO ID: [id number] Author: Kasey Hopson (Sawdust Machine Operator) Kathrine Turk Service: ? Author Type: Party Plan Selling Distributor Type: Progress Notes Filed: 01/17/2020 12:29 PM Note Text: Voice Message Hello, this is the [facility] calling, a member of your household has been diagnosed as positive for COVID-19. We are sorry we missed you, but your care is important to us. You will be receiving a call daily for the next few weeks. Please take a moment to answer our calls. If any of your symptoms have worsened, please call you PCP office to discuss. [facility] and [facility] patients may call: ? [facility] Nurse social professionals at [phone] ? Their PCP Office Caregivers may call: ? [facility] Employee Hotline: [phone] If you are finding it more difficult to breathe, or more short of breath when walking or climbing stairs, please go to the nearest ED. Inform the staff that you are COVID positive and you are having more shortness of breath while doing activities. SIGNATURE: KATHRINE Franklin PATIENT NAME: Yadira Perez DATE: January 17, 2020 TIME: 12:29 PM Normal [facility] CNPTOUTREACHon 01-10-2020 CNPTOUTREACH Patient Outreach ([facility]) YADIRA PEREZ ([id number]) 1950 F Date Time Provider Department 01/10/20 BK MONTIEL) TAMIKAG During your visit today, we recorded the following information about you: Bk Montiel DTR 01/10/2020 12:00 PM Signed COVID-19 POSITIVE PATIENT OUTREACH DAILY CALL Monitoring Call: Day 17 from symptom onset 12/25/19 Patient noted to have completed [facility] for home monitoring 01/10/20.? ? Review of patient-entered information does not indicate increases in symptoms since prior assessment. ? Telephone Encounter deferred at this time. ? Will continue to monitor patient. OUTCOME: COVID-19 Caregiver Adult Monitoring COVID-19 Monitoring 01/10/2020 01/09/2020 Are you feeling short of breath today? No No Are you having a cough today? No No Are you vomiting? No No Are you experiencing diarrhea? No No How is your appetite? Better Better Are you experiencing weakness today? No No Temperature (Patient Entered) (None) (None) SpO2 (Patient Entered) (None) (None) Disposition: Stable, continue monitoring SIGNATURE: Bk Montiel DTR PATIENT NAME: Yadira Perez DATE: January 10, 2020 TIME: 11:56 AM Allergies As of Date: 01/10/2020 Noted Allergy Reaction CODEINE 08/29/2018 2 - Rash Date Reviewed: 01/02/2020 Reviewed by: Jessica Hale LPN - Fully Assessed Reason for Visit: Covid Follow Up [1550] Cmt: daily, sx: 12/25/19. Prescriptions as of 01/10/2020 Sig: BENZONATATE 100 MG CAPSULE Take 1-2 capsules tid prn METHOTREXATE SODIUM 2.5 MG TA* Take 15 mg by mouth one time * ERGOCALCIFEROL (VITAMIN D2) 5* Take 1 tablet by mouth twice * BENZONATATE 100 MG CAPSULE Take 100 mg by mouth three ti* ALBUTEROL SULFATE HFA 90 MCG/* Inhale 2 Puffs as instructed * IPRATROPIUM BROMIDE 17 MCG/AC* Inhale 2 Puffs as instructed * MUCINEX 600 MG TABLET, EXTEND* Take 2 tablets by mouth twice* Patient not taking: Reported on 01/02/2020 HYDROXYCHLOROQUINE 200 MG TAB* Take 2 tablets by mouth once * GUAIFENESIN ER 600 MG TABLET,* Take 2 tablets by mouth twice* Patient not taking: Reported on 01/02/2020 FLUTICASONE PROPIONATE 50 MCG* Use 1 [place] in each nostril t* Patient not taking: Reported on 08/10/2019 CELECOXIB 200 MG CAPSULE Take 200 mg by mouth twice da* IBANDRONATE 150 MG TABLET Take 150 mg by mouth once blanca* CALCIUM CARBONATE 500 MG (1,2* Take 1 tablet by mouth twice * EMERGEN-C IMMUNE PLUS ORAL Take by mouth. DULOXETINE 30 MG CAPSULE,GONZALO* Take 30 mg by mouth twice manav* HYDROCODONE 5 MG-ACETAMINOPHE* Take 1 tablet by mouth every * LORATADINE 10 MG TABLET Take 1 tablet by mouth as nee* BENZONATATE 100 MG CAPSULE Take 1 capsule by mouth three* Patient not taking: Reported on 08/10/2019 MELOXICAM ORAL Take by mouth. TRAMADOL ORAL Take by mouth. HYDROCHLOROTHIAZIDE 12.5 MG C* Take 1 capsule by mouth once * PROPRANOLOL 40 MG TABLET Take 80 mg by mouth once amparo* IRON 325 MG (65 MG IRON) TABL* Take one(1) tablet daily. Problem List As Of Date: 01/10/2020 (None) Encounter Status:Closed by BK MONTIEL on 01/10/20 Normal [facility] PROGRESSon 01-10-2020 PROGRESS HNO ID: [id number] Author: Bk Montiel Service: ? Author Type: Maintenance Truck Driver Type: Progress Notes Filed: 01/10/2020 12:00 PM Note Text: Summary: Day #8 of positive test. COVID-19 POSITIVE PATIENT OUTREACH DAILY CALL Monitoring Call: Day 17 from symptom onset 12/25/19 [facility].? ? Review of patient-entered information does not indicate increases in symptoms since prior assessment. ? Telephone Encounter deferred at this time. ? Will continue to monitor patient. OUTCOME: COVID-19 Caregiver Adult Monitoring COVID-19 Monitoring 01/10/2020 01/09/2020 Are you feeling short of breath today? No No Are you having a cough today? No No Are you vomiting? No No Are you experiencing diarrhea? No No How is your appetite? Better Better Are you experiencing weakness today? No No Temperature (Patient Entered) (None) (None) SpO2 (Patient Entered) (None) (None) Disposition: Stable, continue monitoring SIGNATURE: Bk Montiel DTR PATIENT NAME: Yadira Brown Ana DATE: January 10, 2020 TIME: 11:56 AM Normal [facility] CNPTOUTREACHon 01-09-2020 CNPTOUTREACH Patient Outreach ([facility]) ANAYADIRA Brown ([id number]) 1950 F Date Time Provider Department 01/09[facility] your visit today, we recorded the following information about you: Bk Montiel DTR 01/09/2020 2:10 PM Signed COVID-19 POSITIVE PATIENT OUTREACH DAILY CALL Monitoring Call: Day 16 from symptom onset 12/25/19 Patient noted to have completed [facility] for home monitoring 01/09/20.. Review of patient-entered information does not indicate increases in symptoms since prior assessment. Telephone Encounter deferred at this time. Will continue to monitor patient. OUTCOME: COVID-19 Caregiver Adult Monitoring COVID-19 Monitoring 01/09/2020 01/08/2020 Are you feeling short of breath today? No No Are you having a cough today? No No Are you vomiting? No No Are you experiencing diarrhea? No No How is your appetite? Better Same Are you experiencing weakness today? No Yes Is the weakness new, better, the same, or worse than yesterday? - Better Temperature (Patient Entered) (None) (None) SpO2 (Patient Entered) (None) (None) Disposition: Stable, continue monitoring SIGNATURE: Bk Montiel DTR PATIENT NAME: Yadira Perez DATE: January 09, 2020 TIME: 2:04 PM Allergies As of Date: 01/09/2020 Noted Allergy Reaction CODEINE 08/29/2018 2 - Rash Date Reviewed: 01/02/2020 Reviewed by: Jessica Hale LPN - Fully Assessed Reason for Visit: Covid Follow Up [6870] Cmt: daily, sx: 12/25/19. Prescriptions as of 01/09/2020 Sig: BENZONATATE 100 MG CAPSULE Take 1-2 capsules tid prn METHOTREXATE SODIUM 2.5 MG TA* Take 15 mg by mouth one time * ERGOCALCIFEROL (VITAMIN D2) 5* Take 1 tablet by mouth twice * BENZONATATE 100 MG CAPSULE Take 100 mg by mouth three ti* ALBUTEROL SULFATE HFA 90 MCG/* Inhale 2 Puffs as instructed * IPRATROPIUM BROMIDE 17 MCG/AC* Inhale 2 Puffs as instructed * MUCINEX 600 MG TABLET, EXTEND* Take 2 tablets by mouth twice* Patient not taking: Reported on 01/02/2020 HYDROXYCHLOROQUINE 200 MG TAB* Take 2 tablets by mouth once * GUAIFENESIN ER 600 MG TABLET,* Take 2 tablets by mouth twice* Patient not taking: Reported on 01/02/2020 FLUTICASONE PROPIONATE 50 MCG* Use 1 [place] in each nostril t* Patient not taking: Reported on 08/10/2019 CELECOXIB 200 MG CAPSULE Take 200 mg by mouth twice da* IBANDRONATE 150 MG TABLET Take 150 mg by mouth once blanca* CALCIUM CARBONATE 500 MG (1,2* Take 1 tablet by mouth twice * EMERGEN-C IMMUNE PLUS ORAL Take by mouth. DULOXETINE 30 MG CAPSULE,GONZALO* Take 30 mg by mouth twice manav* HYDROCODONE 5 MG-ACETAMINOPHE* Take 1 tablet by mouth every * LORATADINE 10 MG TABLET Take 1 tablet by mouth as nee* BENZONATATE 100 MG CAPSULE Take 1 capsule by mouth three* Patient not taking: Reported on 08/10/2019 MELOXICAM ORAL Take by mouth. TRAMADOL ORAL Take by mouth. HYDROCHLOROTHIAZIDE 12.5 MG C* Take 1 capsule by mouth once * PROPRANOLOL 40 MG TABLET Take 80 mg by mouth once amparo* IRON 325 MG (65 MG IRON) TABL* Take one(1) tablet daily. Problem List As Of Date: 01/09/2020 (None) Encounter Status:Closed by BK MONTIEL on 01/09/20 Normal [facility] PROGRESSon 01-09-2020 PROGRESS HNO ID: [id number] Author: Bk (Dtr) Dinesh Service: ? 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 COVID-19 POSITIVE PATIENT OUTREACH DAILY CALL Monitoring Call: Day 16 from symptom onset 12/25/19 Patient noted to have completed [facility] for home monitoring 01/09/20.. Review of patient-entered information does not indicate increases in symptoms since prior assessment. Telephone Encounter deferred at this time. Will continue to monitor patient. OUTCOME: COVID-19 Caregiver Adult Monitoring COVID-19 Monitoring 01/09/2020 01/08/2020 Are you feeling short of breath today? No No Are you having a cough today? No No Are you vomiting? No No Are you experiencing diarrhea? No No How is your appetite? Better Same Are you experiencing weakness today? No Yes Is the weakness new, better, the same, or worse than yesterday? - Better Temperature (Patient Entered) (None) (None) SpO2 (Patient Entered) (None) (None) Disposition: Stable, continue monitoring SIGNATURE: Bk Montiel DTR PATIENT NAME: Yadira Perez DATE: January 09, 2020 TIME: 2:04 PM Normal [facility] CNPTOUTREACHon 01-08-2020 CNPTOUTREACH Patient Outreach ([facility]) YADIRA PEREZ ([id number]) 1950 F Date Time Provider Department 01/08/20 MALLORY GRIER (BORIS) [facility] your visit today, we recorded the following information about you: Mallory Grier RD 01/08/2020 10:07 AM Signed COVID-19 POSITIVE PATIENT OUTREACH DAILY Monitoring: Day 14 from symptom onset 12/25/19 Pt noted to have completed [facility] for home monitoring . Review of patient-entered information does not indicate increase in symptoms since prior assessment. Telephone encounter deferred at this time. Will continue to monitor patient. OUTCOME: COVID-19 Caregiver Adult Monitoring COVID-19 Monitoring 01/08/2020 01/07/2020 01/07/2020 Caregiver Entered Response - Yes - Are you feeling short of breath today? No No No Are you having a cough today? No Yes Yes Has it been worse over the past 24 hours? - No No Are you vomiting? No No No Are you experiencing diarrhea? No No No How is your appetite? Same Same Same Are you experiencing weakness today? Yes Yes Yes Is the weakness new, better, the same, or worse than yesterday? Better Same Same Highest Temperature - last 24 hours? (Caregiver Entered) - (No Data) - Do you have a pulse oximeter / Oxygen Monitor at home - No - Temperature (Patient Entered) (None) (None) 99 SpO2 (Patient Entered) (None) (None) (None) We would like to make sure you have what you need so that your basic needs are met- including your personal safety, food, housing and medications?? Would you like to speak with a social work paper steamer to help give you support for any of these needs? - No - It can be normal to feel anxious or down during a time like this. Would you like to talk to a mental health professional about how you have been feeling? - No - Disposition: Stable, continue monitoring SIGNATURE: Mallory Grier RD PATIENT NAME: Yadira Perez DATE: January 08, 2020 TIME: 10:04 AM Allergies As of Date: 01/08/2020 Noted Allergy Reaction CODEINE 08/29/2018 2 - Rash Date Reviewed: 01/02/2020 Reviewed by: Jessica Hale LPN - Fully Assessed Reason for Visit: Covid Follow Up [9724] Cmt: day 14 since sx onset 12/25/19 Prescriptions as of 01/08/2020 Sig: BENZONATATE 100 MG CAPSULE Take 1-2 capsules tid prn METHOTREXATE SODIUM 2.5 MG TA* Take 15 mg by mouth one time * ERGOCALCIFEROL (VITAMIN D2) 5* Take 1 tablet by mouth twice * BENZONATATE 100 MG CAPSULE Take 100 mg by mouth three ti* ALBUTEROL SULFATE HFA 90 MCG/* Inhale 2 Puffs as instructed * IPRATROPIUM BROMIDE 17 MCG/AC* Inhale 2 Puffs as instructed * MUCINEX 600 MG TABLET, EXTEND* Take 2 tablets by mouth twice* Patient not taking: Reported on 01/02/2020 HYDROXYCHLOROQUINE 200 MG TAB* Take 2 tablets by mouth once * GUAIFENESIN ER 600 MG TABLET,* Take 2 tablets by mouth twice* Patient not taking: Reported on 01/02/2020 FLUTICASONE PROPIONATE 50 MCG* Use 1 [place] in each nostril t* Patient not taking: Reported on 08/10/2019 CELECOXIB 200 MG CAPSULE Take 200 mg by mouth twice da* IBANDRONATE 150 MG TABLET Take 150 mg by mouth once blanca* CALCIUM CARBONATE 500 MG (1,2* Take 1 tablet by mouth twice * EMERGEN-C IMMUNE PLUS ORAL Take by mouth. DULOXETINE 30 MG CAPSULE,GONZALO* Take 30 mg by mouth twice manav* HYDROCODONE 5 MG-ACETAMINOPHE* Take 1 tablet by mouth every * LORATADINE 10 MG TABLET Take 1 tablet by mouth as nee* BENZONATATE 100 MG CAPSULE Take 1 capsule by mouth three* Patient not taking: Reported on 08/10/2019 MELOXICAM ORAL Take by mouth. TRAMADOL ORAL Take by mouth. HYDROCHLOROTHIAZIDE 12.5 MG C* Take 1 capsule by mouth once * PROPRANOLOL 40 MG TABLET Take 80 mg by mouth once amparo* IRON 325 MG (65 MG IRON) TABL* Take one(1) tablet daily. Problem List As Of Date: 01/08/2020 (None) Encounter Status:Closed by MALLORY GRIER on 01/08/20 Normal [facility] PROGRESSon 01-08-2020 PROGRESS HNO ID: [id number] Author: Mallory Borrego (Boris) Marvel Service: ? Author Type: Registered Dietitian Type: Progress Notes Filed: 01/08/2020 10:07 AM Note Text: COVID-19 POSITIVE PATIENT OUTREACH DAILY Monitoring: Day 14 from symptom onset 12/25/19 [facility] . Review of patient-entered information does not indicate increase in symptoms since prior assessment. Telephone encounter deferred at this time. Will continue to monitor patient. OUTCOME: COVID-19 Caregiver Adult Monitoring COVID-19 Monitoring 01/08/2020 01/07/2020 01/07/2020 Caregiver Entered Response - Yes - Are you feeling short of breath today? No No No Are you having a cough today? No Yes Yes Has it been worse over the past 24 hours? - No No Are you vomiting? No No No Are you experiencing diarrhea? No No No How is your appetite? Same Same Same Are you experiencing weakness today? Yes Yes Yes Is the weakness new, better, the same, or worse than yesterday? Better Same Same Highest Temperature - last 24 hours? (Caregiver Entered) - (No Data) - Do you have a pulse oximeter / Oxygen Monitor at home - No - Temperature (Patient Entered) (None) (None) 99 SpO2 (Patient Entered) (None) (None) (None) We would like to make sure you have what you need so that your basic needs are met- including your personal safety, food, housing and medications?? Would you like to speak with a social work paper steamer to help give you support for any of these needs? - No - It can be normal to feel anxious or down during a time like this. Would you like to talk to a mental health professional about how you have been feeling? - No - Disposition: Stable, continue monitoring SIGNATURE: Mallory Grier RD PATIENT NAME: Yadira Perez DATE: January 08, 2020 TIME: 10:04 AM Normal [facility] CNPTOUTREACHon 01-07-2020 CNPTOUTREACH Patient Outreach ([facility]) YADIRA PEREZ ([id number]) 1950 F Date Time Provider Department 01/07/20 FIDE PETERSON (RN) [facility] During your visit today, we recorded the following information about you: FIDE PETERSON RN, RN 01/07/2020 12:00 PM Signed COVID-19 POSITIVE PATIENT OUTREACH DAILY CALL Monitoring Call: Day 13 from symptom onset 12/25/19 Lizy, this is the [facility] calling, may I speak to Yadira Perez I'm calling you to check in and ensure your needs are being met. Can we discuss if you are getting better or worse and how we can work together to help you recover? Patient identified by name and OUTCOME: COVID-19 Caregiver Adult Monitoring COVID-19 Monitoring 01/07/2020 01/07/2020 01/06/2020 Caregiver Entered Response Yes - - Are you feeling short of breath today? No No No Are you having a cough today? Yes Yes Yes Has it been worse over the past 24 hours? No No No Are you vomiting? No No No Are you experiencing diarrhea? No No No How is your appetite? Same Same Same Are you experiencing weakness today? Yes Yes No Is the weakness new, better, the same, or worse than yesterday? Same Same - Highest Temperature - last 24 hours? (Caregiver Entered) (No Data) - - Do you have a pulse oximeter / Oxygen Monitor at home No - - Temperature (Patient Entered) (None) 99 99 SpO2 (Patient Entered) (None) (None) (None) We would like to make sure you have what you need so that your basic needs are met- including your personal safety, food, housing and medications?? Would you like to speak with a social work paper steamer to help give you support for any of these needs? No - - It can be normal to feel anxious or down during a time like this. Would you like to talk to a mental health professional about how you have been feeling? No - - Disposition: Stable, continue monitoring This is a stressful time for you and we want you to know you are supported. Would you like resources on how best to manage stress and anxiety during these times? No (Done) If you are worsening in any way please call your Primary Care Provider right away. [facility] and NON [facility] patients may call: ? [facility] Nurse social professionals at [phone] ? Their PCP Office Caregivers may call: ? [facility] Employee Hotline: [phone] [facility] Employee Boost appointment for 08/02 emotional support: [phone] Patient verbalizes understanding of information provided. Denies any further questions at this time. Please visit CDC.gov website for any updated information about Coronavirus. You can also find information on the [facility] website. Additional information can be found on the CDC and [facility] web sites: https://www.cdc.gov/coronav irus/2019-nCoV/index.html [email or web address] SIGNATURE: FIDE PETERSON RN PATIENT NAME: Yadira Perez DATE: January 07, 2020 TIME: 11:56 AM Allergies As of Date: 01/07/2020 Noted Allergy Reaction CODEINE 08/29/2018 2 - Rash Date Reviewed: 01/02/2020 Reviewed by: Jessica Hale LPN - Fully Assessed Reason for Visit: Covid Follow Up [4667] Prescriptions as of 01/07/2020 Sig: BENZONATATE 100 MG CAPSULE Take 1-2 capsules tid prn METHOTREXATE SODIUM 2.5 MG TA* Take 15 mg by mouth one time * ERGOCALCIFEROL (VITAMIN D2) 5* Take 1 tablet by mouth twice * BENZONATATE 100 MG CAPSULE Take 100 mg by mouth three ti* ALBUTEROL SULFATE HFA 90 MCG/* Inhale 2 Puffs as instructed * IPRATROPIUM BROMIDE 17 MCG/AC* Inhale 2 Puffs as instructed * MUCINEX 600 MG TABLET, EXTEND* Take 2 tablets by mouth twice* Patient not taking: Reported on 01/02/2020 HYDROXYCHLOROQUINE 200 MG TAB* Take 2 tablets by mouth once * GUAIFENESIN ER 600 MG TABLET,* Take 2 tablets by mouth twice* Patient not taking: Reported on 01/02/2020 FLUTICASONE PROPIONATE 50 MCG* Use 1 [place] in each nostril t* Patient not taking: Reported on 08/10/2019 CELECOXIB 200 MG CAPSULE Take 200 mg by mouth twice da* IBANDRONATE 150 MG TABLET Take 150 mg by mouth once blanca* CALCIUM CARBONATE 500 MG (1,2* Take 1 tablet by mouth twice * EMERGEN-C IMMUNE PLUS ORAL Take by mouth. DULOXETINE 30 MG CAPSULE,GONZALO* Take 30 mg by mouth twice manav* HYDROCODONE 5 MG-ACETAMINOPHE* Take 1 tablet by mouth every * LORATADINE 10 MG TABLET Take 1 tablet by mouth as nee* BENZONATATE 100 MG CAPSULE Take 1 capsule by mouth three* Patient not taking: Reported on 08/10/2019 MELOXICAM ORAL Take by mouth. TRAMADOL ORAL Take by mouth. HYDROCHLOROTHIAZIDE 12.5 MG C* Take 1 capsule by mouth once * PROPRANOLOL 40 MG TABLET Take 80 mg by mouth once amparo* IRON 325 MG (65 MG IRON) TABL* Take one(1) tablet daily. Problem List As Of Date: 01/07/2020 (None) Encounter Status:Closed by FIDE PETERSON on 01/07/20 Normal [facility] PROGRESSon 01-07-2020 PROGRESS HNO ID: [id number] Author: Fide (Nicolle) NICOLLE Peterson Service: ? Author Type: Registered Nurse Type: Progress Notes Filed: 01/07/2020 12:00 PM Note Text: Summary: Covid Positive Daily Call Sx Day 13 COVID-19 POSITIVE PATIENT OUTREACH DAILY CALL Monitoring Call: Day 13 from symptom onset 12/25/19 Lizy, this is the [facility] calling, may I speak to Yadira Perez I'm calling you to check in and ensure your needs are being met. Can we discuss if you are getting better or worse and how we can work together to help you recover? Patient identified by name and OUTCOME: COVID-19 Caregiver Adult Monitoring COVID-19 Monitoring 01/07/2020 01/07/2020 01/06/2020 Caregiver Entered Response Yes - - Are you feeling short of breath today? No No No Are you having a cough today? Yes Yes Yes Has it been worse over the past 24 hours? No No No Are you vomiting? No No No Are you experiencing diarrhea? No No No How is your appetite? Same Same Same Are you experiencing weakness today? Yes Yes No Is the weakness new, better, the same, or worse than yesterday? Same Same - Highest Temperature - last 24 hours? (Caregiver Entered) (No Data) - - Do you have a pulse oximeter / Oxygen Monitor at home No - - Temperature (Patient Entered) (None) 99 99 SpO2 (Patient Entered) (None) (None) (None) We would like to make sure you have what you need so that your basic needs are met- including your personal safety, food, housing and medications?? Would you like to speak with a social work paper steamer to help give you support for any of these needs? No - - It can be normal to feel anxious or down during a time like this. Would you like to talk to a mental health professional about how you have been feeling? No - - Disposition: Stable, continue monitoring This is a stressful time for you and we want you to know you are supported. Would you like resources on how best to manage stress and anxiety during these times? No (Done) If you are worsening in any way please call your Primary Care Provider right away. [facility] and NON [facility] patients may call: ? [facility] Nurse social professionals at [phone] ? Their PCP Office Caregivers may call: ? [facility] Employee Hotline: [phone] [facility] Employee Boost appointment for 08/02 emotional support: [phone] Patient verbalizes understanding of information provided. Denies any further questions at this time. Please visit CDC.gov website for any updated information about Coronavirus. You can also find information on the [facility] website. Additional information can be found on the CDC and [facility] web sites: https://www.cdc.gov/coronav irus/2019-nCoV/index.html [email or web address] SIGNATURE: FIDE PETERSON RN PATIENT NAME: Yadira Perez DATE: January 07, 2020 TIME: 11:56 AM Normal [facility] CNPTOUTREACHon 01-06-2020 CNPTOUTREA Patient Outreach ([facility]) YADIRA PEREZ ([id number]) 1950 F Date Time Provider Department 01/06/20 GINA MARISCAL During your visit today, we recorded the following information about you: Gina Mariscal RN 01/06/2020 9:10 AM Signed Voice Message [place], this is the [facility] calling, a member of your household has been diagnosed as positive for COVID-19. We are sorry we missed you, but your care is important to us. You will be receiving a call daily for the next few weeks. Please take a moment to answer our calls. If any of your symptoms have worsened, please call you PCP office to discuss. [facility] and [facility] patients may call: ? [facility] Nurse social professionals at [phone] ? Their PCP Office Caregivers may call: ? [facility] Employee Hotline: [phone] ? [facility] Employee Boost appointment for 08/02 emotional support: [phone] If you are finding it more difficult to breathe, or more short of breath when walking or climbing stairs, please go to the nearest ED. Inform the staff that you are COVID positive and you are having more shortness of breath while doing activities. Disposition: Unable to reach, Left Voicemail - Continue Monitoring SIGNATURE: Gina Mariscal RN PATIENT NAME: Yadira Brown Ana DATE: January 06, 2020 TIME: 9:07 AM Allergies As of Date: 01/06/2020 Noted Allergy Reaction CODEINE 08/29/2018 2 - Rash Date Reviewed: 01/02/2020 Reviewed by: Jessica Hale LPN - Fully Assessed Reason for Visit: Covid Follow Up [3887] Cmt: covid follow up (day 13)( LVM) Reason For Visit History Recorded Prescriptions as of 01/06/2020 Sig: BENZONATATE 100 MG CAPSULE Take 1-2 capsules tid prn METHOTREXATE SODIUM 2.5 MG TA* Take 15 mg by mouth one time * ERGOCALCIFEROL (VITAMIN D2) 5* Take 1 tablet by mouth twice * BENZONATATE 100 MG CAPSULE Take 100 mg by mouth three ti* ALBUTEROL SULFATE HFA 90 MCG/* Inhale 2 Puffs as instructed * IPRATROPIUM BROMIDE 17 MCG/AC* Inhale 2 Puffs as instructed * MUCINEX 600 MG TABLET, EXTEND* Take 2 tablets by mouth twice* Patient not taking: Reported on 01/02/2020 HYDROXYCHLOROQUINE 200 MG TAB* Take 2 tablets by mouth once * GUAIFENESIN ER 600 MG TABLET,* Take 2 tablets by mouth twice* Patient not taking: Reported on 01/02/2020 FLUTICASONE PROPIONATE 50 MCG* Use 1 [place] in each nostril t* Patient not taking: Reported on 08/10/2019 CELECOXIB 200 MG CAPSULE Take 200 mg by mouth twice da* IBANDRONATE 150 MG TABLET Take 150 mg by mouth once blanca* CALCIUM CARBONATE 500 MG (1,2* Take 1 tablet by mouth twice * EMERGEN-C IMMUNE PLUS ORAL Take by mouth. DULOXETINE 30 MG CAPSULE,GONZALO* Take 30 mg by mouth twice manav* HYDROCODONE 5 MG-ACETAMINOPHE* Take 1 tablet by mouth every * LORATADINE 10 MG TABLET Take 1 tablet by mouth as nee* BENZONATATE 100 MG CAPSULE Take 1 capsule by mouth three* Patient not taking: Reported on 08/10/2019 MELOXICAM ORAL Take by mouth. TRAMADOL ORAL Take by mouth. HYDROCHLOROTHIAZIDE 12.5 MG C* Take 1 capsule by mouth once * PROPRANOLOL 40 MG TABLET Take 80 mg by mouth once amparo* IRON 325 MG (65 MG IRON) TABL* Take one(1) tablet daily. Problem List As Of Date: 01/06/2020 (None) Encounter Status:Closed by GINA MARISCAL on 01/06/20 Normal [facility] PROGRESSon 01-06-2020 PROGRESS HNO ID: [id number] Author: Gina Mariscal Service: ? Author Type: Registered Nurse Type: Progress Notes Filed: 01/06/2020 9:10 AM Note Text: Voice Message Lizy, this is the [facility] calling, a member of your household has been diagnosed as positive for COVID-19. We are sorry we missed you, but your care is important to us. You will be receiving a call daily for the next few weeks. Please take a moment to answer our calls. If any of your symptoms have worsened, please call you PCP office to discuss. [facility] and NON [facility] patients may call: ? [facility] Nurse social professionals at [phone] ? Their PCP Office Caregivers may call: ? [facility] Employee Hotline: [phone] ? [facility] Employee Boost appointment for 08/02 emotional support: [phone] If you are finding it more difficult to breathe, or more short of breath when walking or climbing stairs, please go to the nearest ED. Inform the staff that you are COVID positive and you are having more shortness of breath while doing activities. Disposition: Unable to reach, Left Voicemail - Continue Monitoring SIGNATURE: Gina Mariscal RN PATIENT NAME: Yadira Stephanie Perez DATE: January 06, 2020 TIME: 9:07 AM Normal [facility] CNPTOUTREACHon 01-05-2020 CNPTOUTREACH Patient Outreach ([facility]) YADIRA PEREZ ([id number]) 1950 F Date Time Provider Department 01/05/[address] During your visit today, we recorded the following information about you: Alicia Glover RD 01/05/2020 2:48 PM Signed COVID-19 POSITIVE PATIENT OUTREACH DAILY CALL Monitoring Call: Day 11 from symptom onset 12/25/19 Lizy, this is the [facility] calling, may I speak to Yadira Perez I'm calling you to check in and ensure your needs are being met. Can we discuss if you are getting better or worse and how we can work together to help you recover? Patient identified by name and . NOTE TO CAREGIVER: ANSWER THE COVID-19 Caregiver Monitoring FLOWSHEET AND COVID Disposition QUESTIONS NOW OUTCOME: NOTE TO CAREGIVER: AFTER FLOWSHEET COMPLETION PLEASE PLACE DOT PHRASE: (COVIDCAREGIVEMONITORING) COVID-19 Caregiver Adult Monitoring COVID-19 Monitoring 01/05/2020 01/04/2020 Caregiver Entered Response Yes Yes Are you feeling short of breath today? No No Are you having a cough today? Yes Yes Has it been worse over the past 24 hours? No No Are you vomiting? No No Are you experiencing diarrhea? No No How is your appetite? Same Same Are you experiencing weakness today? Yes Yes Is the weakness new, better, the same, or worse than yesterday? Same Same Highest Temperature - last 24 hours? (Caregiver Entered) - 97.4 Do you have a pulse oximeter / Oxygen Monitor at home No No Temperature (Patient Entered) (None) (None) SpO2 (Patient Entered) (None) (None) We would like to make sure you have what you need so that your basic needs are met- including your personal safety, food, housing and medications?? Would you like to speak with a social work paper steamer to help give you support for any of these needs? No No It can be normal to feel anxious or down during a time like this. Would you like to talk to a mental health professional about how you have been feeling? No No Advanced Directives - I am ready to learn more on my own. NOTE TO CAREGIVER: AFTER ?COVID Disposition? FLOWSHEET COMPLETION PLEASE PLACE DOT PHRASE: (COVIDDISPO) Disposition: Stable, continue monitoring This is a stressful time for you and we want you to know you are supported. Would you like resources on how best to manage stress and anxiety during these times? No (Done) If you are worsening in any way please call your Primary Care Provider right away. [facility] and NON [facility] patients may call: ? [facility] Nurse social professionals at [phone] ? Their PCP Office Caregivers may call: ? [facility] Employee Hotline: [phone] [facility] Employee Boost appointment for 08/02 emotional support: [phone] Patient verbalizes understanding of information provided. Denies any further questions at this time. Please visit CDC.gov website for any updated information about Coronavirus. You can also find information on the [facility] website. Additional information can be found on the CDC and [facility] web sites: https://www.cdc.gov/coronav irus/2019-nCoV/index.html [email or web address] SIGNATURE: Alicia Glover RD PATIENT NAME: Yadira Perez DATE: January 05, 2020 TIME: 2:41 PM Allergies As of Date: 01/05/2020 Noted Allergy Reaction CODEINE 08/29/2018 2 - Rash Date Reviewed: 01/02/2020 Reviewed by: Jessica Hale LPN - Fully Assessed Reason for Visit: Covid Follow Up [0636] Cmt: Day 11 Prescriptions as of 01/05/2020 Sig: BENZONATATE 100 MG CAPSULE Take 1-2 capsules tid prn METHOTREXATE SODIUM 2.5 MG TA* Take 15 mg by mouth one time * ERGOCALCIFEROL (VITAMIN D2) 5* Take 1 tablet by mouth twice * BENZONATATE 100 MG CAPSULE Take 100 mg by mouth three ti* ALBUTEROL SULFATE HFA 90 MCG/* Inhale 2 Puffs as instructed * IPRATROPIUM BROMIDE 17 MCG/AC* Inhale 2 Puffs as instructed * MUCINEX 600 MG TABLET, EXTEND* Take 2 tablets by mouth twice* Patient not taking: Reported on 01/02/2020 HYDROXYCHLOROQUINE 200 MG TAB* Take 2 tablets by mouth once * GUAIFENESIN ER 600 MG TABLET,* Take 2 tablets by mouth twice* Patient not taking: Reported on 01/02/2020 FLUTICASONE PROPIONATE 50 MCG* Use 1 [place] in each nostril t* Patient not taking: Reported on 08/10/2019 CELECOXIB 200 MG CAPSULE Take 200 mg by mouth twice da* IBANDRONATE 150 MG TABLET Take 150 mg by mouth once blanca* CALCIUM CARBONATE 500 MG (1,2* Take 1 tablet by mouth twice * EMERGEN-C IMMUNE PLUS ORAL Take by mouth. DULOXETINE 30 MG CAPSULE,GONZALO* Take 30 mg by mouth twice manav* HYDROCODONE 5 MG-ACETAMINOPHE* Take 1 tablet by mouth every * LORATADINE 10 MG TABLET Take 1 tablet by mouth as nee* BENZONATATE 100 MG CAPSULE Take 1 capsule by mouth three* Patient not taking: Reported on 08/10/2019 MELOXICAM ORAL Take by mouth. TRAMADOL ORAL Take by mouth. HYDROCHLOROTHIAZIDE 12.5 MG C* Take 1 capsule by mouth once * PROPRANOLOL 40 MG TABLET Take 80 mg by mouth once amparo* IRON 325 MG (65 MG IRON) TABL* Take one(1) tablet daily. Problem List As Of Date: 01/05/2020 (None) Encounter Status:Closed by ALICIA GLOVER on 01/05/20 [facility] 01-05-2020 PROGRESS HNO ID: [id number] Author: Alicia Glover Service: ? Author Type: Registered Dietitian Type: Progress Notes Filed: 01/05/2020 2:48 PM Note Text: COVID-19 POSITIVE PATIENT OUTREACH DAILY CALL Monitoring Call: Day 11 from symptom onset 12/25/19 Lizy, this is the [facility] calling, may I speak to Yadira Perez I'm calling you to check in and ensure your needs are being met. Can we discuss if you are getting better or worse and how we can work together to help you recover? Patient identified by name and . NOTE TO CAREGIVER: ANSWER THE COVID-19 Caregiver Monitoring FLOWSHEET AND COVID Disposition QUESTIONS NOW OUTCOME: NOTE TO CAREGIVER: AFTER FLOWSHEET COMPLETION PLEASE PLACE DOT PHRASE: (COVIDCAREGIVEMONITORING) COVID-19 Caregiver Adult Monitoring COVID-19 Monitoring 01/05/2020 01/04/2020 Caregiver Entered Response Yes Yes Are you feeling short of breath today? No No Are you having a cough today? Yes Yes Has it been worse over the past 24 hours? No No Are you vomiting? No No Are you experiencing diarrhea? No No How is your appetite? Same Same Are you experiencing weakness today? Yes Yes Is the weakness new, better, the same, or worse than yesterday? Same Same Highest Temperature - last 24 hours? (Caregiver Entered) - 97.4 Do you have a pulse oximeter / Oxygen Monitor at home No No Temperature (Patient Entered) (None) (None) SpO2 (Patient Entered) (None) (None) We would like to make sure you have what you need so that your basic needs are met- including your personal safety, food, housing and medications?? Would you like to speak with a social work paper steamer to help give you support for any of these needs? No No It can be normal to feel anxious or down during a time like this. Would you like to talk to a mental health professional about how you have been feeling? No No Advanced Directives - I am ready to learn more on my own. NOTE TO CAREGIVER: AFTER ?COVID Disposition? FLOWSHEET COMPLETION PLEASE PLACE DOT PHRASE: (COVIDDISPO) Disposition: Stable, continue monitoring This is a stressful time for you and we want you to know you are supported. Would you like resources on how best to manage stress and anxiety during these times? No (Done) If you are worsening in any way please call your Primary Care Provider right away. [facility] and NON [facility] patients may call: ? [facility] Nurse social professionals at [phone] ? Their PCP Office Caregivers may call: ? [facility] Employee Hotline: [phone] [facility] Employee Boost appointment for 08/02 emotional support: [phone] Patient verbalizes understanding of information provided. Denies any further questions at this time. Please visit CDC.gov website for any updated information about Coronavirus. You can also find information on the [facility] website. Additional information can be found on the [facility] and [facility] web sites: https://www.cdc.gov/coronav irus/2019-nCoV/index.html [email or web address] SIGNATURE: Alicia Glover RD PATIENT NAME: Yadira Perez DATE: January 05, 2020 TIME: 2:41 PM Normal [facility] CNPTOUTREACHon 01-04-2020 CNPTOUTREACH Patient Outreach ([facility]) YADIRA PEREZ ([id number]) 1950 F Date Time Provider Department 01/04/20 VINOD STEIN (RN) [facility] During your visit today, we recorded the following information about you: Vinod Stein RN, RN 01/04/2020 12:43 PM Signed COVID-19 POSITIVE PATIENT OUTREACH INTAKE Reason for call: Notification of Positive Results and Intake Lizy, this is the [facility] calling, may I speak to Yadira Perez Patient identified by name and I am calling to notify you that your COVID-19 testing was positive. I understand this is worrisome to you and want you to know we are here to help you. I am contacting you to help you understand what this means, monitor if you are getting better or worse and how we can work together to help you recover. Also, your local health department will also be contacting you, if they have not yet already. The Health Department will provide you with important information and help you, and your family, understand the next steps in working through this infection. It is very important to talk with them and provide any needed information. They will also help you with clearance once you have recovered from this infection. In some cases, your employer may provide additional guidance as well, but the health department will be the organization that officially provides you with guidance on when you can discontinue isolation. Diagnosed with COVID-19 on 01/03/2020 Symptom start date: 12/25/19 Confirm PCP: Carl Bourgeois DO High Risk Category: Flu-like symptoms Age > 60 years old Hypertension NOTE TO CAREGIVER: ASK THESE QUESTIONS FIRST Do you have someone at home with you or someone who can go to the store to get food or medication for you? Yes. Who? Ordering groceries online (if no, see PCSW order below) Are you able to follow the quarantine guidelines? Yes Would you like me to send you information about COVID-19? No Does patient need a referral to resources or PCSW? No We want to support you and closely monitor your symptoms. To best do that, I am inviting you to complete a short questionnaire every day for the next 14 days that will ask how you are feeling - and if certain symptoms are improving or getting worse. Your treatment team, Including a nurse, will review your answers and then follow up if we notice any concerning changes in your symptoms. The questionnaire will come to you through your [employer] account. May I sign you up for this? Yes OUTCOME: COVID-19 Caregiver Adult Monitoring COVID-19 Monitoring 01/04/2020 Caregiver Entered Response Yes Are you feeling short of breath today? No Are you having a cough today? Yes Has it been worse over the past 24 hours? No Are you vomiting? No Are you experiencing diarrhea? No How is your appetite? Same Are you experiencing weakness today? Yes Is the weakness new, better, the same, or worse than yesterday? Same Highest Temperature - last 24 hours? (Caregiver Entered) 97.4 Do you have a pulse oximeter / Oxygen Monitor at home No Temperature (Patient Entered) (None) SpO2 (Patient Entered) (None) We would like to make sure you have what you need so that your basic needs are met- including your personal safety, food, housing and medications?? Would you like to speak with a social work paper steamer to help give you support for any of these needs? No It can be normal to feel anxious or down during a time like this. Would you like to talk to a mental health professional about how you have been feeling? No Advanced Directives I am ready to learn more on my own. Disposition: Stable, continue monitoring This is a stressful time for you and we want you to know you are supported. Would you like resources on how best to manage stress and anxiety during these times No (Done) Explained to patient that we will be calling for the next couple of weeks and to please take a moment to answer our calls. If you are worsening in any way please call your Primary Care Provider right away. We are here to support you if you have a change in your symptoms between now, and our future contact. Please contact us if you have needs. [facility] and NON [facility]CF patients may call: ? [facility] Nurse social professionals at [phone] ? Their PCP Office Patient verbalizes understanding of information provided. Denies any further questions at this time. Please visit CDC.gov website for any updated information about Coronavirus. You can also find information on the [facility] website. Additional information can be found on the CDC and [facility] web sites: https://www.cdc.gov/coronav irus/2019-nCoV/index.html [email or web address] SIGNATURE: Vinod Stein RN PATIENT NAME: Yadira Perez DATE: January 04, 2020 TIME: 12:27 PM Allergies As of Date: 01/04/2020 Noted Allergy Reaction CODEINE 08/29/2018 2 - Rash Date Reviewed: 01/02/2020 Reviewed by: Jessica Hale LPN - Fully Assessed Reason for Visit: Covid Follow Up [9697] Cmt: Intake Prescriptions as of 01/04/2020 Sig: BENZONATATE 100 MG CAPSULE Take 1-2 capsules tid prn METHOTREXATE SODIUM 2.5 MG TA* Take 15 mg by mouth one time * ERGOCALCIFEROL (VITAMIN D2) 5* Take 1 tablet by mouth twice * BENZONATATE 100 MG CAPSULE Take 100 mg by mouth three ti* ALBUTEROL SULFATE HFA 90 MCG/* Inhale 2 Puffs as instructed * IPRATROPIUM BROMIDE 17 MCG/AC* Inhale 2 Puffs as instructed * MUCINEX 600 MG TABLET, EXTEND* Take 2 tablets by mouth twice* Patient not taking: Reported on 01/02/2020 HYDROXYCHLOROQUINE 200 MG TAB* Take 2 tablets by mouth once * GUAIFENESIN ER 600 MG TABLET,* Take 2 tablets by mouth twice* Patient not taking: Reported on 01/02/2020 FLUTICASONE PROPIONATE 50 MCG* Use 1 [place] in each nostril t* Patient not taking: Reported on 08/10/2019 CELECOXIB 200 MG CAPSULE Take 200 mg by mouth twice da* IBANDRONATE 150 MG TABLET Take 150 mg by mouth once blanca* CALCIUM CARBONATE 500 MG (1,2* Take 1 tablet by mouth twice * EMERGEN-C IMMUNE PLUS ORAL Take by mouth. DULOXETINE 30 MG CAPSULE,GONZALO* Take 30 mg by mouth twice manav* HYDROCODONE 5 MG-ACETAMINOPHE* Take 1 tablet by mouth every * LORATADINE 10 MG TABLET Take 1 tablet by mouth as nee* BENZONATATE 100 MG CAPSULE Take 1 capsule by mouth three* Patient not taking: Reported on 08/10/2019 MELOXICAM ORAL Take by mouth. TRAMADOL ORAL Take by mouth. HYDROCHLOROTHIAZIDE 12.5 MG C* Take 1 capsule by mouth once * PROPRANOLOL 40 MG TABLET Take 80 mg by mouth once amparo* IRON 325 MG (65 MG IRON) TABL* Take one(1) tablet daily. Problem List As Of Date: 01/04/2020 (None) Encounter Status:Closed by VINOD STEIN on 01/04/20 [facility] PROGRESSon 01-04-2020 PROGRESS HNO ID: [id number] Author: Vinod (Nicolle) NICOLLE Stein Service: ? Author Type: Registered Nurse Type: Progress Notes Filed: 01/04/2020 12:43 PM Note Text: COVID-19 POSITIVE PATIENT OUTREACH INTAKE Reason for call: Notification of Positive Results and Intake Lizy, this is the [facility] calling, may I speak to Yadira Perez Patient identified by name and I am calling to notify you that your COVID-19 testing was positive. I understand this is worrisome to you and want you to know we are here to help you. I am contacting you to help you understand what this means, monitor if you are getting better or worse and how we can work together to help you recover. Also, your local health department will also be contacting you, if they have not yet already. The Health Department will provide you with important information and help you, and your family, understand the next steps in working through this infection. It is very important to talk with them and provide any needed information. They will also help you with clearance once you have recovered from this infection. In some cases, your employer may provide additional guidance as well, but the health department will be the organization that officially provides you with guidance on when you can discontinue isolation. Diagnosed with COVID-19 on 01/03/2020 Symptom start date: 12/25/19 Confirm PCP: Carl Bourgeois DO High Risk Category: Flu-like symptoms Age > 60 years old Hypertension NOTE TO CAREGIVER: ASK THESE QUESTIONS FIRST Do you have someone at home with you or someone who can go to the store to get food or medication for you? Yes. Who? Ordering groceries online (if no, see PCSW order below) Are you able to follow the quarantine guidelines? Yes Would you like me to send you information about COVID-19? No Does patient need a referral to resources or PCSW? No We want to support you and closely monitor your symptoms. To best do that, I am inviting you to complete a short questionnaire every day for the next 14 days that will ask how you are feeling - and if certain symptoms are improving or getting worse. Your treatment team, Including a nurse, will review your answers and then follow up if we notice any concerning changes in your symptoms. The questionnaire will come to you through your [employer] account. May I sign you up for this? Yes OUTCOME: COVID-19 Caregiver Adult Monitoring COVID-19 Monitoring 01/04/2020 Caregiver Entered Response Yes Are you feeling short of breath today? No Are you having a cough today? Yes Has it been worse over the past 24 hours? No Are you vomiting? No Are you experiencing diarrhea? No How is your appetite? Same Are you experiencing weakness today? Yes Is the weakness new, better, the same, or worse than yesterday? Same Highest Temperature - last 24 hours? (Caregiver Entered) 97.4 Do you have a pulse oximeter / Oxygen Monitor at home No Temperature (Patient Entered) (None) SpO2 (Patient Entered) (None) We would like to make sure you have what you need so that your basic needs are met- including your personal safety, food, housing and medications?? Would you like to speak with a social work paper steamer to help give you support for any of these needs? No It can be normal to feel anxious or down during a time like this. Would you like to talk to a mental health professional about how you have been feeling? No Advanced Directives I am ready to learn more on my own. Disposition: Stable, continue monitoring This is a stressful time for you and we want you to know you are supported. Would you like resources on how best to manage stress and anxiety during these times No (Done) Explained to patient that we will be calling for the next couple of weeks and to please take a moment to answer our calls. If you are worsening in any way please call your Primary Care Provider right away. We are here to support you if you have a change in your symptoms between now, and our future contact. Please contact us if you have needs. [facility] and NON [facility] patients may call: ? [facility] Nurse social professionals at [phone] ? Their PCP Office Patient verbalizes understanding of information provided. Denies any further questions at this time. Please visit CDC.gov website for any updated information about Coronavirus. You can also find information on the [facility] website. Additional information can be found on the CDC and [facility] web sites: https://www.cdc.gov/coronav irus/2019-nCoV/index.html [email or web address] SIGNATURE: Vinod Stein RN PATIENT NAME: Yadira Perez DATE: January 04, 2020 TIME: 12:27 PM Normal [facility] 01-03-2020 CNPN Telephone ([facility]) YADIRA PEREZ ([id number]) 1950 F Date Time Provider Department 01/03/20 ARGELIA MÉNDEZ (MEDICAL HISTORIAN) [facility] During your visit today, we recorded the following information about you: Argelia Méndez APRN.CNP 01/03/2020 8:28 AM Signed The patient does meet COVID 19 testing criteria as of today. Please advise the patient that [facility] scheduling department will contact the patient to schedule test. Allergies As of Date: 01/03/2020 Noted Allergy Reaction CODEINE 08/29/2018 2 - Rash Date Reviewed: 01/02/2020 Reviewed by: Jessica Hale LPN - Fully Assessed Reason for Visit: Covid-19 Hotline [2290] Primary Visit Diagnosis:Suspected COVID-19 virus infection [Z20.828] Order(s):2019 CORONAVIRUS [SQCOVID] Order #: [id number] FUTURE Prescriptions as of 01/03/2020 Sig: BENZONATATE 100 MG CAPSULE Take 1-2 capsules tid prn METHOTREXATE SODIUM 2.5 MG TA* Take 15 mg by mouth one time * ERGOCALCIFEROL (VITAMIN D2) 5* Take 1 tablet by mouth twice * BENZONATATE 100 MG CAPSULE Take 100 mg by mouth three ti* ALBUTEROL SULFATE HFA 90 MCG/* Inhale 2 Puffs as instructed * IPRATROPIUM BROMIDE 17 MCG/AC* Inhale 2 Puffs as instructed * MUCINEX 600 MG TABLET, EXTEND* Take 2 tablets by mouth twice* Patient not taking: Reported on 01/02/2020 HYDROXYCHLOROQUINE 200 MG TAB* Take 2 tablets by mouth once * GUAIFENESIN ER 600 MG TABLET,* Take 2 tablets by mouth twice* Patient not taking: Reported on 01/02/2020 FLUTICASONE PROPIONATE 50 MCG* Use 1 [place] in each nostril t* Patient not taking: Reported on 08/10/2019 CELECOXIB 200 MG CAPSULE Take 200 mg by mouth twice da* IBANDRONATE 150 MG TABLET Take 150 mg by mouth once blanca* CALCIUM CARBONATE 500 MG (1,2* Take 1 tablet by mouth twice * EMERGEN-C IMMUNE PLUS ORAL Take by mouth. DULOXETINE 30 MG CAPSULE,GONZALO* Take 30 mg by mouth twice manav* HYDROCODONE 5 MG-ACETAMINOPHE* Take 1 tablet by mouth every * LORATADINE 10 MG TABLET Take 1 tablet by mouth as nee* BENZONATATE 100 MG CAPSULE Take 1 capsule by mouth three* Patient not taking: Reported on 08/10/2019 MELOXICAM ORAL Take by mouth. TRAMADOL ORAL Take by mouth. HYDROCHLOROTHIAZIDE 12.5 MG C* Take 1 capsule by mouth once * PROPRANOLOL 40 MG TABLET Take 80 mg by mouth once amparo* IRON 325 MG (65 MG IRON) TABL* Take one(1) tablet daily. Problem List As Of Date: 01/03/2020 (None) Encounter Status:Closed by ARGELIA MÉNDEZ CNP on 01/03/20 [facility] CNPTOUTREACHon 01-03-2020 [facility]) YADIRA PEREZ ([id number]) 1950 F Date Time Provider Department 01/03/20 NAGA GUALLPA (NICOLLE) [facility] During your visit today, we recorded the following information about you: Naga Guallpa RN, RN 01/03/2020 10:54 AM Signed [id number] [facility] Voice Message - none left see below Call day 1 Attempted to contact patient multiple times over several hours and phone just rang busy. Will attempt to contact again tomorrow and intake needs to be done. SIGNATURE: Naga Guallpa RN PATIENT NAME: Yadira Brown Ana DATE: January 03, 2020 TIME: 8:36 AM Allergies As of Date: 01/03/2020 Noted Allergy Reaction CODEINE 08/29/2018 2 - Rash Date Reviewed: 01/02/2020 Reviewed by: Jessica Hale LPN - Fully Assessed Reason for Visit: Covid Follow Up [6738] Prescriptions as of 01/03/2020 Sig: BENZONATATE 100 MG CAPSULE Take 1-2 capsules tid prn METHOTREXATE SODIUM 2.5 MG TA* Take 15 mg by mouth one time * ERGOCALCIFEROL (VITAMIN D2) 5* Take 1 tablet by mouth twice * BENZONATATE 100 MG CAPSULE Take 100 mg by mouth three ti* ALBUTEROL SULFATE HFA 90 MCG/* Inhale 2 Puffs as instructed * IPRATROPIUM BROMIDE 17 MCG/AC* Inhale 2 Puffs as instructed * MUCINEX 600 MG TABLET, EXTEND* Take 2 tablets by mouth twice* Patient not taking: Reported on 01/02/2020 HYDROXYCHLOROQUINE 200 MG TAB* Take 2 tablets by mouth once * GUAIFENESIN ER 600 MG TABLET,* Take 2 tablets by mouth twice* Patient not taking: Reported on 01/02/2020 FLUTICASONE PROPIONATE 50 MCG* Use 1 [place] in each nostril t* Patient not taking: Reported on 08/10/2019 CELECOXIB 200 MG CAPSULE Take 200 mg by mouth twice da* IBANDRONATE 150 MG TABLET Take 150 mg by mouth once blanca* CALCIUM CARBONATE 500 MG (1,2* Take 1 tablet by mouth twice * EMERGEN-C IMMUNE PLUS ORAL Take by mouth. DULOXETINE 30 MG CAPSULE,GONZALO* Take 30 mg by mouth twice manav* HYDROCODONE 5 MG-ACETAMINOPHE* Take 1 tablet by mouth every * LORATADINE 10 MG TABLET Take 1 tablet by mouth as nee* BENZONATATE 100 MG CAPSULE Take 1 capsule by mouth three* Patient not taking: Reported on 08/10/2019 MELOXICAM ORAL Take by mouth. TRAMADOL ORAL Take by mouth. HYDROCHLOROTHIAZIDE 12.5 MG C* Take 1 capsule by mouth once * PROPRANOLOL 40 MG TABLET Take 80 mg by mouth once amparo* IRON 325 MG (65 MG IRON) TABL* Take one(1) tablet daily. Problem List As Of Date: 01/03/2020 (None) Encounter Status:Closed by NAGA GUALLPA on 01/03/20 Normal [facility] Coronavirus 2019on 0 COVID 19 Result [facility] Positive Critically abnormal Negative for COVID19 (SARS CoV2) by PCR. [facility] Comment on above: Result Comment: This test was developed and its performance characteristics determined by [facility] [place]. This test has been authorized by FDA under an Emergency Use Authorization (EUA). This test has been validated in accordance with the FDA's Guidance Document Policy for Diagnostics Testing in Laboratories Certified to Perform High Complexity Testing under CLIA prior to Emergency use Authorization for Coronavirus Disease 2019 during the Public Health Emergency issued on September 16, 2019. Performed By: #### C OVID #### [facility] [address] [place], [place] [address] COVID 19 Source [facility] Nasopharyngeal Swab Normal [facility] Comment on above: Result Comment: No c all per procedure. 01/03/202224 Performed By: #### C OVID #### [facility] [address] [place], [place] [address] PROGRESSon 01-03-2020 PROGRESS HNO ID: [id number] Author: Naga (Rn) NICOLLE Guallpa Service: ? Author Type: Registered Nurse Type: Progress Notes Filed: 01/03/2020 10:54 AM Note Text: [id number] Voice Message - none left see below Call day 1 Attempted to contact patient multiple times over several hours and phone just rang busy. Will attempt to contact again tomorrow and intake needs to be done. SIGNATURE: Naga Guallpa RN PATIENT NAME: Yadira Perez DATE: January 03, 2020 TIME: 8:36 AM Normal [facility] CNOVon 01-02-2020 CNOV Office Visit ([facility] ) YADIRA PEREZ ([id number]) 1950 F Date Time Provider Department 01/02/20 3:45 PM CHERELLE RAVI (MEDICAL HISTORIAN) [facility] During your visit today, we recorded the following information about you: Temperature Pulse Respiration Blood pressure 97.6 degrees 58/minute 18/minute 122/80 Weight 80.8 kg Cherelle Ravi APRN.CNP 01/02/2020 4:34 PM Signed This Team Access Model visit is a walk in encounter. It required patient-provider interaction for the medical decision making as documented below. SUBJECTIVE: Yadira Perez is a 69 year old year old female who presents for the past 8 days with symptoms that are:constant. Symptoms include: Positive for Cough, SOB, Rhinorrhea, Headache, Sore throat, Fatigue and Nausea, Negative for Fever, Otalgia and Diarrhea Oral intake: decreased Tobacco use: No Second hand smoke exposure: No Recent exposure to strep:No Recent travel: None OTC meds/remedies that patient has tried: tylenol. Has the patient had any ill contacts? No Has the patient had contact with anyone confirmed or a probable case with COVID-19 infection in the last 14 days? No Does the patient have family with confirmed COVID-19 infection: No Has the patient traveled or resided in an area with sustained or ongoing community transmission of COVID-19? Yes REVIEW OF SYSTEMS: Nasal congestion: Yes Decreased appetite: No Signs of dehydration (low fluid intake or voiding, diarrhea, dry mucus membranes): No Decreased level of consciousness: No MAJOR COVID-19 SYMPTOMS: *Coughing: Yes *Shortness of breath: Yes *Difficulty breathing: No MINOR COVID-19 SYMPTOMS: Fever: (Temp 100.4F or greater) No Chills: No Headache: Yes Acute loss of smell or taste: No Sore throat: Yes Muscle aches: Yes Vomiting: No Diarrhea: No *If the patient has one major COVID-19 symptom or two minor COVID-19 symptoms, may clinically have COVID-19 as long as there is no other clinical explanation for the symptom(s). *If the patient is in [place] and in a high risk category and has at least 2 symptoms of : fever, cough, shortness of breath, myalgia, diarrhea, anosmia, loss of taste, and sore throat then the patient may qualify for an ambulatory [facility] COVID-19 test. Route the chart to the COVID-19 HOTLINE POOL for testing determination. PATIENT'S HIGH RISK CATEGORY ASSESSMENT: Age > 60 years old On immunosuppressive therapy Hypertension One major COVID-19 symptom or two minor COVID-19 symptoms OBJECTIVE: Physical Exam Constitutional: She is well-developed, well-nourished, and in no distress. HENT: Right Ear: Tympanic membrane, external ear and ear canal normal. Left Ear: Tympanic membrane, external ear and ear canal normal. Nose: Nose normal. Mouth/Throat: Uvula is midline, oropharynx is clear and moist and mucous membranes are normal. No oropharyngeal exudate, posterior oropharyngeal edema or posterior oropharyngeal erythema. Neck: Neck supple. Cardiovascular: Normal rate, regular rhythm and normal heart sounds. Pulmonary/Chest: Effort normal and breath sounds normal. No respiratory distress. She has no wheezes. She has no rales. Lymphadenopathy: She has no cervical adenopathy. Neurological: She is alert. Skin: Skin is warm and dry. No rash noted. No erythema. Nursing note and vitals reviewed. Centor Criteria - Age (2-14=+1, 15-44=0, >=45 -1): -1 - Tonsillar exudates: 0 - Tender anterior cervical adenopathy: 0 - Fever by history (>38 or 100.4): 0 - Absence of cough: 0 0 points- probability of strep is 1-2.5% 1 point- probability of strep is 5-10% 2 points- probability of strep is 11-17% 3 points- probability of strep is 28-35% 4 points- probability of strep is 51-53% ASSESSMENT/PLAN: See encounter diagnoses and orders for additional plan. ASSESSMENT/PLAN: 1. Cough - ICD9: 786.2, ICD10: R05 (primary diagnosis) - BENZONATATE 100 MG CAPSULE 2. Suspected COVID-19 virus infection - ICD9: , ICD10: Z20.828 - MYCHART COVID-19 HOME MONITORING - begin home isolation as instructed - Follow-up with your PCP in 3-5 days if symptoms have not improved or sooner if symptoms worsen - Discussed red flags and need for immediate medical evaluation if any occur. - Discussed supportive care treatment with fluids, rest and analgesia. - Discussed expected course of illness Cherelle Ravi APRN.KATHY Yadira Perez is an 69 year old who appears to have COVID-19 infection and is high risk or with concerning symptoms, recommend COVID-19 testing. This patient encounter involved the screening or treatment of novel coronavirus infection (COVID-19). - Red flags discussed for need for in person care - All questions answered SIGNATURE: Cherelle Ravi APRN.CNP DATE: January 02, 2020 Cherelle Ravi APRN.CNP 01/02/2020 4:29 PM Addendum ASSESSMENT/PLAN: 1. Cough - ICD9: 786.2, ICD10: R05 (primary diagnosis) - BENZONATATE 100 MG CAPSULE 2. Suspected COVID-19 virus infection - ICD9: , ICD10: Z20.828 - MYCHART COVID-19 HOME MONITORING - begin home isolation as instructed - Follow-up with your PCP in 3-5 days if symptoms have not improved or sooner if symptoms worsen - Discussed red flags and need for immediate medical evaluation if any occur. - Discussed supportive care treatment with fluids, rest and analgesia. - Discussed expected course of illness Cherelle Ravi APRN.CNP Separate yourself from other people in your home, this is known as home isolation. Stay away from others: As much as possible, you should stay in a specific ?sick room? and away from other people in your home. Use a separate bathroom, if available. Limit contact with pets AND animals: You should restrict contact with pets and other animals, just like you would around other people. Although there have not been reports of pets or other animals becoming sick with COVID-19, it is still recommended that people with the virus limit contact with animals until more information is known. When possible, have another member of your household care for your animals while you are sick with COVID-19. If you must care for your pet or be around animals while you are sick, wash your hands before and after you interact with them. Referring Provider: SELF [200] Allergies As of Date: 01/02/2020 Noted Allergy Reaction CODEINE 08/29/2018 2 - Rash Date Reviewed: 01/02/2020 Reviewed by: Jessica Hale LPN - Fully Assessed Reason for Visit: Flu Like Symptoms [267] Cmt: cough, chest congestion, nausea, fizziness, joint pain x 1 week Primary Visit Diagnosis:Cough [R05] Other Visit Diagnosis:Suspected COVID-19 virus infection [Z20.828] Order(s):YOLIE COVID-19 HOME MONITORING [[id number]] Order #: [id number] benzonatate (TESSALON PERLE) 100 mg capsuleTake 1-2 capsules tid prnDisp: 30 capsuleRfl: 0 Prescriptions as of 01/02/2020 Sig: METHOTREXATE SODIUM 2.5 MG TA* Take 15 mg by mouth one time * ERGOCALCIFEROL (VITAMIN D2) 5* Take 1 tablet by mouth twice * ALBUTEROL SULFATE HFA 90 MCG/* Inhale 2 Puffs as instructed * IPRATROPIUM BROMIDE 17 MCG/AC* Inhale 2 Puffs as instructed * HYDROXYCHLOROQUINE 200 MG TAB* Take 2 tablets by mouth once * CELECOXIB 200 MG CAPSULE Take 200 mg by mouth twice da* IBANDRONATE 150 MG TABLET Take 150 mg by mouth once blanca* CALCIUM CARBONATE 500 MG (1,2* Take 1 tablet by mouth twice * EMERGEN-C IMMUNE PLUS ORAL Take by mouth. DULOXETINE 30 MG CAPSULE,GONZALO* Take 30 mg by mouth twice manav* HYDROCODONE 5 MG-ACETAMINOPHE* Take 1 tablet by mouth every * LORATADINE 10 MG TABLET Take 1 tablet by mouth as nee* HYDROCHLOROTHIAZIDE 12.5 MG C* Take 1 capsule by mouth once * PROPRANOLOL 40 MG TABLET Take 80 mg by mouth once amparo* IRON 325 MG (65 MG IRON) TABL* Take one(1) tablet daily. BENZONATATE 100 MG CAPSULE Take 1-2 capsules tid prn BENZONATATE 100 MG CAPSULE Take 100 mg by mouth three ti* MUCINEX 600 MG TABLET, EXTEND* Take 2 tablets by mouth twice* Patient not taking: Reported on 01/02/2020 GUAIFENESIN ER 600 MG TABLET,* Take 2 tablets by mouth twice* Patient not taking: Reported on 01/02/2020 FLUTICASONE PROPIONATE 50 MCG* Use 1 [place] in each nostril t* Patient not taking: Reported on 08/10/2019 BENZONATATE 100 MG CAPSULE Take 1 capsule by mouth three* Patient not taking: Reported on 08/10/2019 MELOXICAM ORAL Take by mouth. TRAMADOL ORAL Take by mouth. Problem List As Of Date: 01/02/2020 (None) Other instructions from your clinician: ASSESSMENT/PLAN: 1. Cough - ICD9: 786.2, ICD10: R05 (primary diagnosis) - BENZONATATE 100 MG CAPSULE 2. Suspected COVID-19 virus infection - ICD9: , ICD10: Z20.828 - MYCHART COVID-19 HOME MONITORING - begin home isolation as instructed - Follow-up with your PCP in 3-5 days if symptoms have not improved or sooner if symptoms worsen - Discussed red flags and need for immediate medical evaluation if any occur. - Discussed supportive care treatment with fluids, rest and analgesia. - Discussed expected course of illness Cherelle Ravi APRN.MEDICAL HISTORIAN Separate yourself from other people in your home, this is known as home isolation. Stay away from others: As much as possible, you should stay in a specific ?sick room? and away from other people in your home. Use a separate bathroom, if available. Limit contact with pets AND animals: You should restrict contact with pets and other animals, just like you would around other people. Although there have not been reports of pets or other animals becoming sick with COVID-19, it is still recommended that people with the virus limit contact with animals until more information is known. When possible, have another member of your household care for your animals while you are sick with COVID-19. If you must care for your pet or be around animals while you are sick, wash your hands before and after you interact with them. Prescriptions ordered this encounter Disp Refills Start End BENZONATATE 100 MG CAPSULE 30 c* 0 01/02/2020 Sig: Take 1-2 capsules tid prn Medications Discontinued During This Encounter benzonatate (TESSALON PERLE) 100 mg * 30 c* 0 08/29/2018 01/02/2020 Sig: Take 1-2 capsules tid prn Patient not taking: Reported on 08/10/2019 Disc: Reason for discontinue is not on file. Disposition: Return if symptoms worsen or fail to improve. Follow-up and Disposition History Recorded Encounter Status:Closed by CHERELLE RAVI on 01/02/20 [facility] PROGRESSon 01-02-2020 PROGRESS HNO ID: [id number] Author: Cherelle Ravi Service: ? Author Type: Nurse Practitioner Type: Progress Notes Filed: 01/02/2020 4:34 PM Note Text: This Team Access Model visit is a walk in encounter. It required patient-provider interaction for the medical decision making as documented below. SUBJECTIVE: Yadira Perez is a 69 year old year old female who presents for the past 8 days with symptoms that are:constant. Symptoms include: Positive for Cough, SOB, Rhinorrhea, Headache, Sore throat, Fatigue and Nausea, Negative for Fever, Otalgia and Diarrhea Oral intake: decreased Tobacco use: No Second hand smoke exposure: No Recent exposure to strep:No Recent travel: None OTC meds/remedies that patient has tried: tylenol. Has the patient had any ill contacts? No Has the patient had contact with anyone confirmed or a probable case with COVID-19 infection in the last 14 days? No Does the patient have family with confirmed COVID-19 infection: No Has the patient traveled or resided in an area with sustained or ongoing community transmission of COVID-19? Yes REVIEW OF SYSTEMS: Nasal congestion: Yes Decreased appetite: No Signs of dehydration (low fluid intake or voiding, diarrhea, dry mucus membranes): No Decreased level of consciousness: No MAJOR COVID-19 SYMPTOMS: *Coughing: Yes *Shortness of breath: Yes *Difficulty breathing: No MINOR COVID-19 SYMPTOMS: Fever: (Temp 100.4F or greater) No Chills: No Headache: Yes Acute loss of smell or taste: No Sore throat: Yes Muscle aches: Yes Vomiting: No Diarrhea: No *If the patient has one major COVID-19 symptom or two minor COVID-19 symptoms, may clinically have COVID-19 as long as there is no other clinical explanation for the symptom(s). *If the patient is in [place] and in a high risk category and has at least 2 symptoms of : fever, cough, shortness of breath, myalgia, diarrhea, anosmia, loss of taste, and sore throat then the patient may qualify for an ambulatory [facility] COVID-19 test. Route the chart to the COVID-19 HOTLINE POOL for testing determination. PATIENT'S HIGH RISK CATEGORY ASSESSMENT: Age > 60 years old On immunosuppressive therapy Hypertension One major COVID-19 symptom or two minor COVID-19 symptoms OBJECTIVE: Physical Exam Constitutional: She is well-developed, well-nourished, and in no distress. HENT: Right Ear: Tympanic membrane, external ear and ear canal normal. Left Ear: Tympanic membrane, external ear and ear canal normal. Nose: Nose normal. Mouth/Throat: Uvula is midline, oropharynx is clear and moist and mucous membranes are normal. No oropharyngeal exudate, posterior oropharyngeal edema or posterior oropharyngeal erythema. Neck: Neck supple. Cardiovascular: Normal rate, regular rhythm and normal heart sounds. Pulmonary/Chest: Effort normal and breath sounds normal. No respiratory distress. She has no wheezes. She has no rales. Lymphadenopathy: She has no cervical adenopathy. Neurological: She is alert. Skin: Skin is warm and dry. No rash noted. No erythema. Nursing note and vitals reviewed. Centor Criteria - Age (2-14=+1, 15-44=0, >=45 -1): -1 - Tonsillar exudates: 0 - Tender anterior cervical adenopathy: 0 - Fever by history (>38 or 100.4): 0 - Absence of cough: 0 0 points- probability of strep is 1-2.5% 1 point- probability of strep is 5-10% 2 points- probability of strep is 11-17% 3 points- probability of strep is 28-35% 4 points- probability of strep is 51-53% ASSESSMENT/PLAN: See encounter diagnoses and orders for additional plan. ASSESSMENT/PLAN: 1. Cough - ICD9: 786.2, ICD10: R05 (primary diagnosis) - BENZONATATE 100 MG CAPSULE 2. Suspected COVID-19 virus infection - ICD9: , ICD10: Z20.828 - MYCHART COVID-19 HOME MONITORING - begin home isolation as instructed - Follow-up with your PCP in 3-5 days if symptoms have not improved or sooner if symptoms worsen - Discussed red flags and need for immediate medical evaluation if any occur. - Discussed supportive care treatment with fluids, rest and analgesia. - Discussed expected course of illness Cherelle Ravi APRN.KATHY Yadira Perez is an 69 year old who appears to have COVID-19 infection and is high risk or with concerning symptoms, recommend COVID-19 testing. This patient encounter involved the screening or treatment of novel coronavirus infection (COVID-19). - Red flags discussed for need for in person care - All questions answered SIGNATURE: Cherelle Ravi APRN.MEDICAL HISTORIAN DATE: January 02, 2020 Normal [facility] CNOVon 08-10-2019 CNOV Office Visit ([facility] ) YADIRA PEREZ ([id number]) 1950 F Date Time Provider Department 08/10/19 12:00 PM MALLORY DOW [facility] During your visit today, we recorded the following information about you: Temperature Pulse Respiration Blood pressure 98.4 degrees 57/minute 16/minute 112/76 Weight 87.7 kg Bree Bird Ma 08/10/2019 2:13 PM Signed 2.5 solution duoneb treatment given per provider's orders. Prior to treatment O2 sat is 96%. Treatment completed. O2 sat is 95%. Tolerated well. Bree Dow APRN.MEDICAL HISTORIAN 08/10/2019 2:21 PM Signed [facility] PATIENT INFO BRONCHITIS OVERVIEW Bronchitis develops when there is swelling and irritation of the bronchi, the large tubes that carry air to the lungs. There are two types of bronchitis: acute (sudden onset) and chronic (long-standing). Acute bronchitis often occurs with a viral infection, such as the common cold, and is sometimes called a chest cold. The most common symptom of acute bronchitis is a nagging cough. Treatment of acute bronchitis usually involves treating the symptoms, such as sore throat and congestion. Antibiotics do not help to eliminate acute bronchitis caused by a virus. Antiviral agents are useful in some cases of acute bronchitis due to influenza, but there are antiviral agents for other forms of viral bronchitis. BRONCHITIS CAUSES Most cases of bronchitis are caused by a viral infection of the upper airways, such as the common cold or the flu. Less commonly, a bacterium such as pertussis (whooping cough) is the cause. BRONCHITIS SYMPTOMS The most common symptoms of acute bronchitis include: ? A persistent cough; this may last 10 to 20 days ? Some people cough up mucus, which may be clear, yellow, or green in color Fever is not common in people with acute bronchitis. However, having a fever can be a sign of another condition, such as the flu or pneumonia. Conditions with similar features ? There are other conditions that have symptoms similar to those of acute bronchitis. ? Chronic cough ? A persistent cough that lasts more than eight weeks is considered a chronic cough, which is discussed in detail elsewhere. ? Chronic bronchitis ? Chronic bronchitis is defined as a cough that occurs on most days of the month for at least three months of the year during two consecutive years. ? Pneumonia ? Signs of pneumonia include fever and a fast heart and breathing rate. ? Postnasal drip ? Postnasal drip occurs when secretions drain from the sinuses into the throat. This can cause the throat to feel irritated, which causes you to feel like you need to clear your throat frequently. Postnasal drip can be caused by the common cold, allergies, sinusitis, or environmental irritants. BRONCHITIS DIAGNOSIS Most people who have a persistent cough after an upper respiratory infection (cold) do not need to see a healthcare provider. Diagnostic testing, such as x-rays, cultures, and blood tests, are not usually needed for people with acute bronchitis. However, testing may be recommended if your diagnosis is not clear based upon your examination or if another condition, such as pneumonia, is suspected. When to seek help ? You should call your healthcare provider if you have any of the following: ? Fever (temperature greater than 100.4? F or 38? C) ? A cough that lasts longer than 10 days ? Chest pain with coughing, difficulty breathing, or coughing up blood ? A barking cough that makes it hard to speak, especially if it persists ? Cough accompanied by unexplained weight loss People who are older than 75 do not always have a fever or other concerning symptoms. If you are over 75 years and you have a persistent cough, you should call your clinician to determine if and when an office visit is recommended. BRONCHITIS TREATMENT Relief of symptoms ? There is no specific treatment for bronchitis, but there are a few treatments available for the common cold. ? A nonsteroidal antiinflammatory drug (ibuprofen, naproxen), aspirin, or acetaminophen (Tylenol?) can help to relieve the pain of a sore throat or headache. ? Pseudoephedrine is a decongestant that can improve nasal congestion. Most drugstores in the [place] carry pseudoephedrine behind the counter, so you must ask for it from the pharmacist (a prescription is not required). Other decongestants, such as phenylephrine, are not as effective as pseudoephedrine. Antihistamines such as diphenhydramine (Benadryl?) may also help, but can cause side effects such as drowsiness and drying of the eyes, nose, and mouth. ? Heated, humidified, air can improve symptoms of nasal congestion and runny nose, and has few to no side effects. ? Cough suppressants such as dextromethorphan may be helpful. Antibiotics ? Antibiotics are NOT helpful for most people with bronchitis since the illness is typically caused by a virus. Antibiotics treat bacterial, not viral infections. Antibiotics may be helpful for some patients with other chronic diseases. Many people request antibiotics in the hopes that it will get rid of the cough, and some people even think that antibiotics have helped on previous occasions. However, there is no benefit of antibiotics for most cases of bronchitis. PREVENTING THE SPREAD OF ILLNESS Hand washing is an essential and highly effective way to prevent the spread of infection. Wet your hands with water and plain soap and rub them together for 15 to 30 seconds. Pay special attention to the fingernails, between the fingers, and the wrists. Rinse your hands thoroughly, and dry with a single use towel. Alcohol-based hand rubs are a good alternative for disinfecting hands if a sink is not available. Spread the hand rub over the entire surface of your hands, fingers, and wrists until dry. You can use hand rubs repeatedly without irritating the skin or losing effectiveness. Hand rubs are available as a liquid or wipe in small, portable sizes that are easy to carry in a pocket or handbag. When a sink is available, you should wash visibly soiled hands with soap and water. Wash your hands before preparing food and eating, and after going to the bathroom, and after coughing, blowing the nose, or sneezing. While it is not always possible to limit contact with people who are ill, avoid touching your eyes, nose, or mouth after direct contact, when possible. In addition, use a tissue to cover your mouth when sneezing or coughing. Throw away used tissues promptly and then wash your hands. Sneezing/coughing into the sleeve of your clothing (at the inner elbow) is another way of containing sprays of saliva and secretions and does not contaminate your hands. Sneezing and coughing without covering your mouth can spread infection to anyone within 6 feet. Mallory Dow APRN.MEDICAL HISTORIAN 08/10/2019 4:51 PM Signed Subjective HPI Pt presents with c/o sore throat, cough and chest congestion x 10 days. Was evaluated at an Urgent Care in [place]. Dx viral URI, rx albuterol MDI and tessalon perles. Has been using inhaler 1-2 times/day. Having coughing fits, wheezing, worse at HS. Cough is moist, occasionally producing clear to green mucous. Denies fever, chills, myalgias, chest tightness, dyspnea. Received influenza vaccine this season. Review of Systems Constitutional: Negative for chills and fever. HENT: Positive for congestion. Negative for ear pain, sinus pain and sore throat. Respiratory: Positive for cough and wheezing. Negative for hemoptysis, sputum production and shortness of breath. Cardiovascular: Negative for chest pain. Objective Physical Exam Constitutional: She is oriented to person, place, and time and well-developed, well-nourished, and in no distress. No distress. HENT: Head: Normocephalic. Right Ear: Hearing, tympanic membrane, external ear and ear canal normal. Left Ear: Hearing, tympanic membrane, external ear and ear canal normal. Nose: Nose normal. Right sinus exhibits no maxillary sinus tenderness and no frontal sinus tenderness. Left sinus exhibits no maxillary sinus tenderness and no frontal sinus tenderness. Mouth/Throat: Uvula is midline, oropharynx is clear and moist and mucous membranes are normal. No oropharyngeal exudate. Eyes: Pupils are equal, round, and reactive to light. Conjunctivae are normal. Right eye exhibits no discharge. Left eye exhibits no discharge. Neck: Neck supple. Cardiovascular: Normal rate, regular rhythm and normal heart sounds. Exam reveals no gallop and no friction rub. No murmur heard. Pulmonary/Chest: Effort normal. No accessory muscle usage. No respiratory distress. She has no decreased breath sounds (Good air movement throughout. Pulse ox 96% before albuterol tx, 95% after.). She has wheezes (occasional fait). She has rhonchi (coarse throughout). She has no rales. Lymphadenopathy: She has no cervical adenopathy. Neurological: She is alert and oriented to person, place, and time. Skin: Skin is warm and dry. She is not diaphoretic. BP 112/76 Pulse (!) 57 Temp 36.9 ?C (98.4 ?F) (Left Tympanic) Resp 16 Wt 87.7 kg (193 lb 6.4 oz) SpO2 96% .Patient presents with: URI: x 2 weeks History reviewed. No pertinent past medical history. History reviewed. No pertinent surgical history. ALLERGIES Codeine MEDICATIONS methotrexate 2.5 mg tablet Take 15 mg by mouth one time a week. 5 tablets once weekly. ergocalciferol, vitamin D2, 2,000 unit tab Take 1 tablet by mouth twice daily. benzonatate (TESSALON PERLE) 100 mg capsule Take 100 mg by mouth three times daily as needed for Cough (for 10 days.). albuterol HFA (PROAIR HFA) 90 mcg/actuation inhaler Inhale 2 Puffs as instructed every 6 hours as needed for Wheezing/Shortness of Breath. hydroxychloroquine (PLAQUENIL) 200 mg tablet Take 2 tablets by mouth once daily. guaiFENesin (MUCINEX) 600 mg 12 hr tablet Take 2 tablets by mouth twice daily. Ibandronate 150 mg tablet Take 150 mg by mouth once every month. zzqzyax-efyskqeoi-xtdymss D3 500 mg(1,250mg) -200 unit per tablet Take 1 tablet by mouth twice daily with meals. DULoxetine (CYMBALTA) 30 mg capsule Take 30 mg by mouth twice daily. HYDROcodone-acetaminophen (NORCO) 5-325 mg per tablet Take 1 tablet by mouth every 6 hours as needed. loratadine (CLARITIN) 10 mg tablet Take 1 tablet by mouth as needed. Hydrochlorothiazide 12.5 mg capsule Take 1 capsule by mouth once daily. propranolol (INDERAL) 40 mg tablet Take 80 mg by mouth once daily. ferrous sulfate(IRON 325 MG (65 MG IRON) TAB) Take one(1) tablet daily. predniSONE (DELTASONE) 20 mg tablet Take 2 tablets by mouth once daily for 5 days. Take daily with food. Inhalational Spacing Device spcr 1 Device one time only for 1 dose. Ipratropium (ATROVENT) 17 mcg/actuation inhaler Inhale 2 Puffs as instructed every 6 hours. guaiFENesin (MUCINEX) 600 mg 12 hr tablet Take 2 tablets by mouth twice daily. fluticasone (FLONASE) 50 mcg/actuation nasal spray Use 1 [place] in each nostril twice daily. Rinse mouth after use. benzonatate (TESSALON PERLE) 100 mg capsule Take 1-2 capsules tid prn celecoxib (CELEBREX) 200 mg capsule Take 200 mg by mouth twice daily. ASCORBIC ACID/MULTIVIT-MIN (EMERGEN-C IMMUNE PLUS ORAL) Take by mouth. benzonatate (TESSALON PERLE) 100 mg capsule Take 1 capsule by mouth three times daily as needed for Cough. MELOXICAM ORAL Take by mouth. TRAMADOL HCL (TRAMADOL ORAL) Take by mouth. History reviewed. No pertinent family history. Social History Tobacco Use - Smoking status: Never Smoker - Smokeless tobacco: Never Used Substance Use Topics - Alcohol use: Not on file - Drug use: Not on file ASSESSMENT/PLAN: 1. Cough - ICD9: 786.2, ICD10: R05 (primary diagnosis) - XR CHEST 2V FRONTAL/LAT Impression: no acute process. - IPRATROPIUM 0.5 MG-ALBUTEROL 3 MG (2.5 MG BASE)/3 ML NEBULIZATION SOLN 2. Bronchitis - ICD9: 490, ICD10: J40 - PREDNISONE 20 MG TABLET - INHALATIONAL SPACING DEVICE - IPRATROPIUM BROMIDE 17 MCG/ACTUATION HFA AEROSOL INHALER - MUCINEX 600 MG TABLET, EXTENDED RELEASE Reviewed and printed bronchitis education. The patient is instructed to return or seek emergency treatment if symptoms become worse or with any acute change in condition. The patient verbalizes understanding and is in agreement with plan of care. Mallory Dow CNP Referring Provider: SELF [[id number]] Allergies As of Date: 08/10/2019 Noted Allergy Reaction CODEINE 08/29/2018 2 - Rash Date Reviewed: 08/10/2019 Reviewed by: Imelda Rhodes Ma - Fully Assessed Reason for Visit: URI [115] Cmt: x 2 weeks Reason For Visit History Recorded Primary Visit Diagnosis:Cough [R05] Other Visit Diagnosis:Bronchitis [J40] Order(s):XR CHEST 2V FRONTAL/LAT [[id number]] Order #: [id number] FUTURE [] ipratropium-albuterol 3 mL nebulizer solution (DUONEB)Disp: Rfl: predniSONE (DELTASONE) 20 mg tabletTake 2 tablets by mouth once daily for 5 days. Take daily with food.Disp: 10 tabletRfl: 0 Inhalational Spacing Device spcr1 Device one time only for 1 dose.Disp: 1 EachRfl: 0 Ipratropium (ATROVENT) 17 mcg/actuation inhalerInhale 2 Puffs as instructed every 6 hours.Disp: 1 InhalerRfl: 0 guaiFENesin (MUCINEX) 600 mg 12 hr tabletTake 2 tablets by mouth twice daily.Disp: 30 tabletRfl: 0 Prescriptions as of 08/10/2019 Sig: METHOTREXATE SODIUM 2.5 MG TA* Take 15 mg by mouth one time * ERGOCALCIFEROL (VITAMIN D2) 2* Take 1 tablet by mouth twice * BENZONATATE 100 MG CAPSULE Take 100 mg by mouth three ti* ALBUTEROL SULFATE HFA 90 MCG/* Inhale 2 Puffs as instructed * HYDROXYCHLOROQUINE 200 MG TAB* Take 2 tablets by mouth once * GUAIFENESIN ER 600 MG TABLET,* Take 2 tablets by mouth twice* IBANDRONATE 150 MG TABLET Take 150 mg by mouth once blanca* CALCIUM CARBONATE 500 MG (1,2* Take 1 tablet by mouth twice * DULOXETINE 30 MG CAPSULE,GONZALO* Take 30 mg by mouth twice manav* HYDROCODONE 5 MG-ACETAMINOPHE* Take 1 tablet by mouth every * LORATADINE 10 MG TABLET Take 1 tablet by mouth as nee* HYDROCHLOROTHIAZIDE 12.5 MG C* Take 1 capsule by mouth once * PROPRANOLOL 40 MG TABLET Take 80 mg by mouth once amparo* IRON 325 MG (65 MG IRON) TABL* Take one(1) tablet daily. PREDNISONE 20 MG TABLET Take 2 tablets by mouth once * INHALATIONAL SPACING DEVICE 1 Device one time only for 1 * IPRATROPIUM BROMIDE 17 MCG/AC* Inhale 2 Puffs as instructed * MUCINEX 600 MG TABLET, EXTEND* Take 2 tablets by mouth twice* FLUTICASONE PROPIONATE 50 MCG* Use 1 [place] in each nostril t* Patient not taking: Reported on 08/10/2019 BENZONATATE 100 MG CAPSULE Take 1-2 capsules tid prn Patient not taking: Reported on 08/10/2019 CELECOXIB 200 MG CAPSULE Take 200 mg by mouth twice da* EMERGEN-C IMMUNE PLUS ORAL Take by mouth. BENZONATATE 100 MG CAPSULE Take 1 capsule by mouth three* Patient not taking: Reported on 08/10/2019 MELOXICAM ORAL Take by mouth. TRAMADOL ORAL Take by mouth. Problem List As Of Date: 08/10/2019 (None) Other instructions from your clinician: EXPRESS CARE PATIENT INFO BRONCHITIS OVERVIEW Bronchitis develops when there is swelling and irritation of the bronchi, the large tubes that carry air to the lungs. There are two types of bronchitis: acute (sudden onset) and chronic (long-standing). Acute bronchitis often occurs with a viral infection, such as the common cold, and is sometimes called a chest cold. The most common symptom of acute bronchitis is a nagging cough. Treatment of acute bronchitis usually involves treating the symptoms, such as sore throat and congestion. Antibiotics do not help to eliminate acute bronchitis caused by a virus. Antiviral agents are useful in some cases of acute bronchitis due to influenza, but there are antiviral agents for other forms of viral bronchitis. BRONCHITIS CAUSES Most cases of bronchitis are caused by a viral infection of the upper airways, such as the common cold or the flu. Less commonly, a bacterium such as pertussis (whooping cough) is the cause. BRONCHITIS SYMPTOMS The most common symptoms of acute bronchitis include: ? A persistent cough; this may last 10 to 20 days ? Some people cough up mucus, which may be clear, yellow, or green in color Fever is not common in people with acute bronchitis. However, having a fever can be a sign of another condition, such as the flu or pneumonia. Conditions with similar features ? There are other conditions that have symptoms similar to those of acute bronchitis. ? Chronic cough ? A persistent cough that lasts more than eight weeks is considered a chronic cough, which is discussed in detail elsewhere. ? Chronic bronchitis ? Chronic bronchitis is defined as a cough that occurs on most days of the month for at least three months of the year during two consecutive years. ? Pneumonia ? Signs of pneumonia include fever and a fast heart and breathing rate. ? Postnasal drip ? Postnasal drip occurs when secretions drain from the sinuses into the throat. This can cause the throat to feel irritated, which causes you to feel like you need to clear your throat frequently. Postnasal drip can be caused by the common cold, allergies, sinusitis, or environmental irritants. BRONCHITIS DIAGNOSIS Most people who have a persistent cough after an upper respiratory infection (cold) do not need to see a healthcare provider. Diagnostic testing, such as x-rays, cultures, and blood tests, are not usually needed for people with acute bronchitis. However, testing may be recommended if your diagnosis is not clear based upon your examination or if another condition, such as pneumonia, is suspected. When to seek help ? You should call your healthcare provider if you have any of the following: ? Fever (temperature greater than 100.4? F or 38? C) ? A cough that lasts longer than 10 days ? Chest pain with coughing, difficulty breathing, or coughing up blood ? A barking cough that makes it hard to speak, especially if it persists ? Cough accompanied by unexplained weight loss People who are older than 75 do not always have a fever or other concerning symptoms. If you are over 75 years and you have a persistent cough, you should call your clinician to determine if and when an office visit is recommended. BRONCHITIS TREATMENT Relief of symptoms ? There is no specific treatment for bronchitis, but there are a few treatments available for the common cold. ? A nonsteroidal antiinflammatory drug (ibuprofen, naproxen), aspirin, or acetaminophen (Tylenol?) can help to relieve the pain of a sore throat or headache. ? Pseudoephedrine is a decongestant that can improve nasal congestion. Most drugstores in the [place] carry pseudoephedrine behind the counter, so you must ask for it from the pharmacist (a prescription is not required). Other decongestants, such as phenylephrine, are not as effective as pseudoephedrine. Antihistamines such as diphenhydramine (Benadryl?) may also help, but can cause side effects such as drowsiness and drying of the eyes, nose, and mouth. ? Heated, humidified, air can improve symptoms of nasal congestion and runny nose, and has few to no side effects. ? Cough suppressants such as dextromethorphan may be helpful. Antibiotics ? Antibiotics are NOT helpful for most people with bronchitis since the illness is typically caused by a virus. Antibiotics treat bacterial, not viral infections. Antibiotics may be helpful for some patients with other chronic diseases. Many people request antibiotics in the hopes that it will get rid of the cough, and some people even think that antibiotics have helped on previous occasions. However, there is no benefit of antibiotics for most cases of bronchitis. PREVENTING THE SPREAD OF ILLNESS Hand washing is an essential and highly effective way to prevent the spread of infection. Wet your hands with water and plain soap and rub them together for 15 to 30 seconds. Pay special attention to the fingernails, between the fingers, and the wrists. Rinse your hands thoroughly, and dry with a single use towel. Alcohol-based hand rubs are a good alternative for disinfecting hands if a sink is not available. Spread the hand rub over the entire surface of your hands, fingers, and wrists until dry. You can use hand rubs repeatedly without irritating the skin or losing effectiveness. Hand rubs are available as a liquid or wipe in small, portable sizes that are easy to carry in a pocket or handbag. When a sink is available, you should wash visibly soiled hands with soap and water. Wash your hands before preparing food and eating, and after going to the bathroom, and after coughing, blowing the nose, or sneezing. While it is not always possible to limit contact with people who are ill, avoid touching your eyes, nose, or mouth after direct contact, when possible. In addition, use a tissue to cover your mouth when sneezing or coughing. Throw away used tissues promptly and then wash your hands. Sneezing/coughing into the sleeve of your clothing (at the inner elbow) is another way of containing sprays of saliva and secretions and does not contaminate your hands. Sneezing and coughing without covering your mouth can spread infection to anyone within 6 feet. Visit Notes: >> Bree Bird Ma [facility] Aug 10, 2019 2:12 PM Status: Signed 2.5 solution duoneb treatment given per provider's orders. Prior to treatment O2 sat is 96%. Treatment completed. O2 sat is 95%. Tolerated well. Bree Bird Ma Prescriptions ordered this encounter Disp Refills Start End IPRATROPIUM 0.5 MG-ALBUTEROL 3 MG (2* 08/10/2019 08/10/2019 Route: INHALATION PREDNISONE 20 MG TABLET 10 t* 0 08/10/2019 08/15/2019 Route: ORAL Sig: Take 2 tablets by mouth once daily for 5 days. Take daily with food. INHALATIONAL SPACING DEVICE 1 Ea* 0 08/10/2019 08/10/2019 Route: Misc Si Device one time only for 1 dose. IPRATROPIUM BROMIDE 17 MCG/ACTUATION* 1 In* 0 08/10/2019 Route: INHALATION Sig: Inhale 2 Puffs as instructed every 6 hours. MUCINEX 600 MG TABLET, EXTENDED RELE* 30 t* 0 08/10/2019 Route: ORAL Sig: Take 2 tablets by mouth twice daily. Encounter Status:Closed by MALLORY DOW CNP on 08/10/19 Normal [facility] PROGRESSon 08-10-2019 PROGRESS HNO ID: [id number] Author: Mallory Dow Service: ? Author Type: Nurse Practitioner Type: Progress Notes Filed: 08/10/2019 4:51 PM Note Text: Subjective HPI Pt presents with c/o sore throat, cough and chest congestion x 10 days. Was evaluated at an Urgent Care in [place]. Dx viral URI, rx albuterol MDI and tessalon perles. Has been using inhaler 1-2 times/day. Having coughing fits, wheezing, worse at HS. Cough is moist, occasionally producing clear to green mucous. Denies fever, chills, myalgias, chest tightness, dyspnea. Received influenza vaccine this season. Review of Systems Constitutional: Negative for chills and fever. HENT: Positive for congestion. Negative for ear pain, sinus pain and sore throat. Respiratory: Positive for cough and wheezing. Negative for hemoptysis, sputum production and shortness of breath. Cardiovascular: Negative for chest pain. Objective Physical Exam Constitutional: She is oriented to person, place, and time and well-developed, well-nourished, and in no distress. No distress. HENT: Head: Normocephalic. Right Ear: Hearing, tympanic membrane, external ear and ear canal normal. Left Ear: Hearing, tympanic membrane, external ear and ear canal normal. Nose: Nose normal. Right sinus exhibits no maxillary sinus tenderness and no frontal sinus tenderness. Left sinus exhibits no maxillary sinus tenderness and no frontal sinus tenderness. Mouth/Throat: Uvula is midline, oropharynx is clear and moist and mucous membranes are normal. No oropharyngeal exudate. Eyes: Pupils are equal, round, and reactive to light. Conjunctivae are normal. Right eye exhibits no discharge. Left eye exhibits no discharge. Neck: Neck supple. Cardiovascular: Normal rate, regular rhythm and normal heart sounds. Exam reveals no gallop and no friction rub. No murmur heard. Pulmonary/Chest: Effort normal. No accessory muscle usage. No respiratory distress. She has no decreased breath sounds (Good air movement throughout. Pulse ox 96% before albuterol tx, 95% after.). She has wheezes (occasional fait). She has rhonchi (coarse throughout). She has no rales. Lymphadenopathy: She has no cervical adenopathy. Neurological: She is alert and oriented to person, place, and time. Skin: Skin is warm and dry. She is not diaphoretic. BP 112/76 Pulse (!) 57 Temp 36.9 ?C (98.4 ?F) (Left Tympanic) Resp 16 Wt 87.7 kg (193 lb 6.4 oz) SpO2 96% .Patient presents with: URI: x 2 weeks History reviewed. No pertinent past medical history. History reviewed. No pertinent surgical history. ALLERGIES Codeine MEDICATIONS methotrexate 2.5 mg tablet Take 15 mg by mouth one time a week. 5 tablets once weekly. ergocalciferol, vitamin D2, 2,000 unit tab Take 1 tablet by mouth twice daily. benzonatate (TESSALON PERLE) 100 mg capsule Take 100 mg by mouth three times daily as needed for Cough (for 10 days.). albuterol HFA (PROAIR HFA) 90 mcg/actuation inhaler Inhale 2 Puffs as instructed every 6 hours as needed for Wheezing/Shortness of Breath. hydroxychloroquine (PLAQUENIL) 200 mg tablet Take 2 tablets by mouth once daily. guaiFENesin (MUCINEX) 600 mg 12 hr tablet Take 2 tablets by mouth twice daily. Ibandronate 150 mg tablet Take 150 mg by mouth once every month. elbqyvw-ecttxqols-etlkqsl D3 500 mg(1,250mg) -200 unit per tablet Take 1 tablet by mouth twice daily with meals. DULoxetine (CYMBALTA) 30 mg capsule Take 30 mg by mouth twice daily. HYDROcodone-acetaminophen (NORCO) 5-325 mg per tablet Take 1 tablet by mouth every 6 hours as needed. loratadine (CLARITIN) 10 mg tablet Take 1 tablet by mouth as needed. Hydrochlorothiazide 12.5 mg capsule Take 1 capsule by mouth once daily. propranolol (INDERAL) 40 mg tablet Take 80 mg by mouth once daily. ferrous sulfate(IRON 325 MG (65 MG IRON) TAB) Take one(1) tablet daily. predniSONE (DELTASONE) 20 mg tablet Take 2 tablets by mouth once daily for 5 days. Take daily with food. Inhalational Spacing Device spcr 1 Device one time only for 1 dose. Ipratropium (ATROVENT) 17 mcg/actuation inhaler Inhale 2 Puffs as instructed every 6 hours. guaiFENesin (MUCINEX) 600 mg 12 hr tablet Take 2 tablets by mouth twice daily. fluticasone (FLONASE) 50 mcg/actuation nasal spray Use 1 [place] in each nostril twice daily. Rinse mouth after use. benzonatate (TESSALON PERLE) 100 mg capsule Take 1-2 capsules tid prn celecoxib (CELEBREX) 200 mg capsule Take 200 mg by mouth twice daily. ASCORBIC ACID/MULTIVIT-MIN (EMERGEN-C IMMUNE PLUS ORAL) Take by mouth. benzonatate (TESSALON PERLE) 100 mg capsule Take 1 capsule by mouth three times daily as needed for Cough. MELOXICAM ORAL Take by mouth. TRAMADOL HCL (TRAMADOL ORAL) Take by mouth. History reviewed. No pertinent family history. Social History Tobacco Use - Smoking status: Never Smoker - Smokeless tobacco: Never Used Substance Use Topics - Alcohol use: Not on file - Drug use: Not on file ASSESSMENT/PLAN: 1. Cough - ICD9: 786.2, ICD10: R05 (primary diagnosis) - XR CHEST 2V FRONTAL/LAT Impression: no acute process. - IPRATROPIUM 0.5 MG-ALBUTEROL 3 MG (2.5 MG BASE)/3 ML NEBULIZATION SOLN 2. Bronchitis - ICD9: 490, ICD10: J40 - PREDNISONE 20 MG TABLET - INHALATIONAL SPACING DEVICE - IPRATROPIUM BROMIDE 17 MCG/ACTUATION HFA AEROSOL INHALER - MUCINEX 600 MG TABLET, EXTENDED RELEASE Reviewed and printed bronchitis education. The patient is instructed to return or seek emergency treatment if symptoms become worse or with any acute change in condition. The patient verbalizes understanding and is in agreement with plan of care. Mallory Dow CNP Normal [facility] PROGRESS HNO ID: [id number] Author: Christine Fay (Rt) Kathrine Wray Service: ? Author Type: Party Plan Selling Distributor Type: Progress Notes Filed: 08/10/2019 1:44 PM Note Text: Radiology Service Progress Note PATIENT NAME: Yadira Perez DATE OF SERVICE: August 10, 2019 TIME: 1:35 PM PATIENT IDENTITY VERIFICATION COMPLETED USING TWO (2) IDENTIFIERS: Name and Date of confirmed by patient verbally. PATIENT GENDER DATA: Female. status: : No status: NO. PATIENT RELEVANT IMPLANT DATA REVIEWED: Not Applicable RADIOLOGY DEPARTMENT: General X-ray: Exam(s) Completed: Chest X-Ray PERIPHERAL IV DATA: Not applicable SIGNED BY: Christine Wray RT August 10, 2019 1:35 PM Normal [facility] XR CHEST 2V FRONTAL/LATon XR CHEST 2V FRONTAL/LAT * * *Final Report* * * DATE OF EXAM: Aug 10 2019 1:44PM WOX [id number] - XR CHEST 2V FRONTAL/LAT / PROCEDURE REASON: Cough * * * * Physician Interpretation * * * * EXAMINATION: CHEST RADIOGRAPH (2 VIEW FRONTAL and LATERAL), 08/10/2019 CLINICAL HISTORY: Cough MQ: [id number] Comparison: None RESULT: Lines, tubes, and devices: None. Lungs and pleura: Mild elevation left diaphragm. Probable platelike atelectasis at the lung bases. Upper lungs clear. No pleural fluid or pneumothorax. Cardiomediastinal silhouette: Normal cardiomediastinal silhouette. Other: Moderate degenerative changes in the spine.. IMPRESSION: 1. Mild elevation left diaphragm. 2. Mild densities at the lung bases, likely platelike atelectasis. Infiltrate less likely. Clinical follow-up suggested. Manufacturing Baker: JEWEL Transcribe Date/Time: Aug 10 2019 1:59P Dictated by : MILAN CARRIZALES MD This examination was interpreted and the report reviewed and electronically signed by: MILAN CARRIZALES MD on Aug 10 2019 2:01PM EST [id number] Normal [facility] Culture, urine Bacteria identified Cx Nom (U) Mixed Gram Pos & Gram Neg Org [facility] Work Phone: Vital Signs Date Time Vital Sign Value Performing Clinician Facility 11-28-2024 10:36-0400 Body temperature 97.7 [degF] Dr. Carl Bourgeois DO Work Phone: [facility] 11-28-2024 10:36-0400 Diastolic blood pressure 75 mm[Hg] Dr. Carl Bourgeois DO Work Phone: [facility] 11-28-2024 10:36-0400 Heart rate 57 /min Dr. Carl Bourgeois DO Work Phone: [facility] 11-28-2024 10:36-0400 Respiratory rate 16 /min Dr. Carl Bourgeois DO Work Phone: [facility] 11-28-2024 10:36-0400 SaO2% (BldA) [Mass fraction] 96 % Dr. Carl Bourgeois DO Work Phone: [facility] 11-28-2024 10:36-0400 Systolic blood pressure 157 mm[Hg] Dr. Carl Bourgeois DO Work Phone: [facility] 11-21-2024 07:54-0400 Body mass index (BMI) [Ratio] 33.7 kg/m2 Dr. Carl Bourgeois DO Work Phone: [facility] 11-21-2024 07:54-0400 Body temperature 97.1 [degF] Dr. Carl Bourgeois DO Work Phone: [facility] 11-21-2024 07:54-0400 Body weight 94.[address] Carl Bourgeois DO Work Phone: [facility] 11-21-2024 07:54-0400 Diastolic blood pressure 74 mm[Hg] Dr. Carl Bourgeois DO Work Phone: [facility] 11-21-2024 07:54-0400 Heart rate 63 /min Dr. Carl Bourgeois DO Work Phone: [facility] 11-21-2024 07:54-0400 Respiratory rate 20 /min Dr. Carl Bourgeois DO Work Phone: [facility] 11-21-2024 07:54-0400 SaO2% (BldA) [Mass fraction] 96 % Dr. Carl Bourgeois DO Work Phone: [facility] 11-21-2024 07:54-0400 Systolic blood pressure 144 mm[Hg] Dr. Carl Bourgeois DO Work Phone: [facility] 11-20-2024 13:23-0400 Body temperature 97.8 [degF] Dr. Carl Bourgeois DO Work Phone: [facility] 11-20-2024 13:23-0400 Diastolic blood pressure 81 mm[Hg] Dr. Carl Bourgeois DO Work Phone: [facility] 11-20-2024 13:23-0400 Heart rate 66 /min Dr. Carl Bourgeois DO Work Phone: [facility] 11-20-2024 13:23-0400 Respiratory rate 17 /min Dr. Carl Bourgeois DO Work Phone: [facility] 11-20-2024 13:23-0400 SaO2% (BldA) [Mass fraction] 98 % Dr. Carl Bourgeois DO Work Phone: [facility] 11-20-2024 13:23-0400 Systolic blood pressure 171 mm[Hg] Dr. Carl Bourgeois DO Work Phone: [facility] 10-19-2024 13:54-0400 Body temperature 97.8 [degF] Dr. Carl Bourgeois DO Work Phone: [facility] 10-19-2024 13:54-0400 Diastolic blood pressure 86 mm[Hg] Dr. Carl Bourgeois DO Work Phone: [facility] 10-19-2024 13:54-0400 Heart rate 59 /min Dr. Carl Bourgeois DO Work Phone: [facility] 10-19-2024 13:54-0400 Respiratory rate 17 /min Dr. Carl Bourgeois DO Work Phone: [facility] 10-19-2024 13:54-0400 SaO2% (BldA) [Mass fraction] 98 % Dr. Carl Bourgeois DO Work Phone: [facility] 10-19-2024 13:54-0400 Systolic blood pressure 128 mm[Hg] Dr. Carl Bourgeois DO Work Phone: [facility] 09-19-2024 13:27-0500 Body temperature 98 [degF] Dr. Carl Bourgeois DO Work Phone: [facility] 09-19-2024 13:27-0500 Diastolic blood pressure 80 mm[Hg] Dr. Carl Bourgeois DO Work Phone: [facility] 09-19-2024 13:27-0500 Heart rate 57 /min Dr. Carl Bourgeois DO Work Phone: [facility] 09-19-2024 13:27-0500 Respiratory rate 17 /min Dr. Carl Bourgeois DO Work Phone: [facility] 09-19-2024 13:27-0500 SaO2% (BldA) [Mass fraction] 96 % Dr. Carl Bourgeois DO Work Phone: [facility] 09-19-2024 13:27-0500 Systolic blood pressure 118 mm[Hg] Dr. Carl Bourgeois DO Work Phone: [facility] 07-31-2024 10:35-0500 Body temperature 98.2 [degF] Dr. Carl Bourgeois DO Work Phone: [facility] 07-31-2024 10:35-0500 Diastolic blood pressure 86 mm[Hg] Dr. Carl Bourgeois DO Work Phone: [facility] 07-31-2024 10:35-0500 Heart rate 59 /min Dr. Carl Bourgeois DO Work Phone: [facility] 07-31-2024 10:35-0500 Respiratory rate 16 /min Dr. Carl Bourgeois DO Work Phone: [facility] 07-31-2024 10:35-0500 SaO2% (BldA) [Mass fraction] 97 % Dr. Carl Bourgeois DO Work Phone: [facility] 07-31-2024 10:35-0500 Systolic blood pressure 138 mm[Hg] Dr. Carl Bourgeois DO Work Phone: [facility] 07-27-2024 10:50-0500 Body temperature 97.7 [degF] Dr. Carl Bourgeois DO Work Phone: [facility] 07-27-2024 10:50-0500 Diastolic blood pressure 71 mm[Hg] Dr. Carl Bourgeois DO Work Phone: [facility] 07-27-2024 10:50-0500 Heart rate 54 /min Dr. Carl Bourgeois DO Work Phone: [facility] 07-27-2024 10:50-0500 Respiratory rate 16 /min Dr. Carl Bourgeois DO Work Phone: [facility] 07-27-2024 10:50-0500 SaO2% (BldA) [Mass fraction] 94 % Dr. Carl Bourgeois DO Work Phone: [facility] 07-27-2024 10:50-0500 Systolic blood pressure 131 mm[Hg] Dr. Carl Bourgeois DO Work Phone: [facility] 07-27-2024 07:50-0500 Body height 167.[address] Carl Bourgeois DO Work Phone: [facility] 07-27-2024 07:50-0500 Body mass index (BMI) [Ratio] 32.7 kg/m2 Dr. Carl Bourgeois DO Work Phone: [facility] 07-27-2024 07:50-0500 Body weight [address] Carl Bourgeois DO Work Phone: [facility] 06-28-2024 09:43-0500 Body mass index (BMI) [Ratio] 31.3 kg/m2 Dr. Carl Bourgeois DO Work Phone: [facility] 06-28-2024 09:43-0500 Body weight 90.[address] Carl Bourgeois DO Work Phone: [facility] 06-26-2024 13:14-0500 Body mass index (BMI) [Ratio] 33.1 kg/m2 Dr. Carl Bourgeois DO Work Phone: [facility] 06-26-2024 13:14-0500 Body temperature 97.8 [degF] Dr. Carl Bourgeois DO Work Phone: [facility] 06-26-2024 13:14-0500 Body weight 93.[address] Carl Bourgeois DO Work Phone: [facility] 06-26-2024 13:14-0500 Diastolic blood pressure 80 mm[Hg] Dr. Carl Bourgeois DO Work Phone: [facility] 06-26-2024 13:14-0500 Heart rate 68 /min Dr. Carl Bourgeois DO Work Phone: [facility] 06-26-2024 13:14-0500 Respiratory rate 17 /min Dr. Carl Bourgeois DO Work Phone: [facility] 06-26-2024 13:14-0500 SaO2% (BldA) [Mass fraction] 95 % Dr. Carl Bourgeois DO Work Phone: [facility] 06-26-2024 13:14-0500 Systolic blood pressure 138 mm[Hg] Dr. Carl Bourgeois DO Work Phone: [facility] 11-04-2023 08:03-0400 Body height 167.[address] Carl Bourgeois Work Phone: [facility] 11-04-2023 08:03-0400 Body mass index (BMI) [Ratio] 31.9 kg/m2 Dr. Carl Bourgeois Work Phone: [facility] 11-04-2023 08:03-0400 Body temperature 97.8 [degF] Dr. Carl Bourgeois Work Phone: [facility] 11-04-2023 08:03-0400 Body weight 89.[address] Carl Bourgeois Work Phone: [facility] 11-04-2023 08:03-0400 Diastolic blood pressure 75 mm[Hg] Dr. Carl Bourgeois Work Phone: [facility] 11-04-2023 08:03-0400 Heart rate 85 /min Dr. Carl Bourgeois Work Phone: [facility] 11-04-2023 08:03-0400 Respiratory rate 20 /min Dr. Carl Bourgeois Work Phone: [facility] 11-04-2023 08:03-0400 SaO2% (BldA) [Mass fraction] 93 % Dr. Carl Bourgeois Work Phone: [facility] 11-04-2023 08:03-0400 Systolic blood pressure 154 mm[Hg] Dr. Carl Bourgeois Work Phone: [facility] 10-25-2023 08:49-0400 Body mass index (BMI) [Ratio] 32.5 kg/m2 Dr. Carl Bourgeois Work Phone: [facility] 10-25-2023 08:49-0400 Body temperature 97.7 [degF] Dr. Carl Bourgeois Work Phone: [facility] 10-25-2023 08:49-0400 Body weight 91.[address] Carl Bourgeois Work Phone: [facility] 10-25-2023 08:49-0400 Diastolic blood pressure 86 mm[Hg] Dr. Carl Bourgeois Work Phone: [facility] 10-25-2023 08:49-0400 Heart rate 68 /min Dr. Carl Bourgeois Work Phone: [facility] 10-25-2023 08:49-0400 Respiratory rate 16 /min Dr. Carl Bourgeois Work Phone: [facility] 10-25-2023 08:49-0400 SaO2% (BldA) [Mass fraction] 98 % Dr. Carl Bourgeois Work Phone: [facility] 10-25-2023 08:49-0400 Systolic blood pressure 146 mm[Hg] Dr. Carl Bourgeois Work Phone: [facility] 09-21-2023 11:35-0500 Body height 167.[address] Carl Bourgeois Work Phone: [facility] 09-21-2023 11:35-0500 Body mass index (BMI) [Ratio] 32.2 kg/m2 Dr. Carl Bourgeois Work Phone: [facility] 09-21-2023 11:35-0500 Body temperature 97.8 [degF] Dr. Carl Bourgeois Work Phone: [facility] 09-21-2023 11:35-0500 Body weight 90.[address] Carl Bourgeois Work Phone: [facility] 09-21-2023 11:35-0500 Diastolic blood pressure 76 mm[Hg] Dr. Carl Bourgeois Work Phone: [facility] 09-21-2023 11:35-0500 Heart rate 62 /min Dr. Carl Bourgeois Work Phone: [facility] 09-21-2023 11:35-0500 Respiratory rate 17 /min Dr. Carl Bourgeois Work Phone: [facility] 09-21-2023 11:35-0500 SaO2% (BldA) [Mass fraction] 97 % Dr. Carl Bourgeois Work Phone: [facility] 09-21-2023 11:35-0500 Systolic blood pressure 148 mm[Hg] Dr. Carl Bourgeois Work Phone: [facility] 08-10-2023 12:57-0500 Body mass index (BMI) [Ratio] 32.2 kg/m2 Dr. Carl Bourgeois Work Phone: [facility] 08-10-2023 12:57-0500 Body temperature 98 [degF] Dr. Carl Bourgeois Work Phone: [facility] 08-10-2023 12:57-0500 Body weight 90.[address] Carl Bougreois Work Phone: [facility] 08-10-2023 12:57-0500 Diastolic blood pressure 70 mm[Hg] Dr. Carl Bourgeois Work Phone: [facility] 08-10-2023 12:57-0500 Heart rate 69 /min Dr. Carl Bourgeois Work Phone: [facility] 08-10-2023 12:57-0500 Respiratory rate 17 /min Dr. Carl Bourgeois Work Phone: [facility] 08-10-2023 12:57-0500 SaO2% (BldA) [Mass fraction] 96 % Dr. Carl Bourgeois Work Phone: [facility] 08-10-2023 12:57-0500 Systolic blood pressure 153 mm[Hg] Dr. Carl Bourgeois Work Phone: [facility] 07-29-2023 11:10-0500 Body temperature 97.3 [degF] Dr. Carl Bourgeois Work Phone: [facility] 07-29-2023 11:10-0500 Body weight 90.[address] Carl Bourgeois Work Phone: [facility] 07-29-2023 11:10-0500 Diastolic blood pressure 78 mm[Hg] Dr. Carl Bourgeois Work Phone: [facility] 07-29-2023 11:10-0500 Heart rate 62 /min Dr. Carl Bourgeois Work Phone: [facility] 07-29-2023 11:10-0500 Respiratory rate 14 /min Dr. Carl Bourgeois Work Phone: [facility] 07-29-2023 11:10-0500 SaO2% (BldA) [Mass fraction] 99 % Dr. Carl Bourgeois Work Phone: [facility] 07-29-2023 11:10-0500 Systolic blood pressure 135 mm[Hg] Dr. Carl Bourgeois Work Phone: [facility] 07-22-2023 08:08-0500 Body mass index (BMI) [Ratio] 28.7 kg/m2 Dr. Carl Bourgeois Work Phone: [facility] 07-22-2023 08:08-0500 Body temperature 97.5 [degF] Dr. Carl Bourgeois Work Phone: [facility] 07-22-2023 08:08-0500 Body weight 80.[address] Carl Bourgeois Work Phone: [facility] 07-22-2023 08:08-0500 Diastolic blood pressure 69 mm[Hg] Dr. Carl Bourgeois Work Phone: [facility] 07-22-2023 08:08-0500 Heart rate 59 /min Dr. Carl Bourgeois Work Phone: [facility] 07-22-2023 08:08-0500 Respiratory rate 20 /min Dr. Carl Bourgeois Work Phone: [facility] 07-22-2023 08:08-0500 SaO2% (BldA) [Mass fraction] 99 % Dr. Carl Bourgeois Work Phone: [facility] 07-22-2023 08:08-0500 Systolic blood pressure 119 mm[Hg] Dr. Carl Bourgeois Work Phone: [facility] 06-28-2023 11:09-0500 Body mass index (BMI) [Ratio] 30.7 kg/m2 Dr. Carl Bourgeois Work Phone: [facility] 06-28-2023 11:09-0500 Body temperature 98.4 [degF] Dr. Carl Bourgeois Work Phone: [facility] 06-28-2023 11:09-0500 Body weight 86.[address] Carl Bourgeois Work Phone: [facility] 06-28-2023 11:09-0500 Diastolic blood pressure 93 mm[Hg] Dr. Carl Bourgeois Work Phone: [facility] 06-28-2023 11:09-0500 Heart rate 84 /min Dr. Carl Bourgeois Work Phone: [facility] 06-28-2023 11:09-0500 Respiratory rate 16 /min Dr. Carl Bourgeois Work Phone: [facility] 06-28-2023 11:09-0500 SaO2% (BldA) [Mass fraction] 95 % Dr. Carl Bourgeois Work Phone: [facility] 06-28-2023 11:09-0500 Systolic blood pressure 164 mm[Hg] Dr. Carl Bourgeois Work Phone: [facility] 06-24-2023 11:11-0500 Body mass index (BMI) [Ratio] 32.1 kg/m2 Dr. Carl Bourgeois Work Phone: [facility] 06-24-2023 11:11-0500 Body temperature 97.7 [degF] Dr. Carl Bourgeois Work Phone: [facility] 06-24-2023 11:11-0500 Body weight 90.[address] Carl Bourgeois Work Phone: [facility] 06-24-2023 11:11-0500 Diastolic blood pressure 85 mm[Hg] Dr. Carl Bourgeois Work Phone: [facility] 06-24-2023 11:11-0500 Heart rate 60 /min Dr. Carl Bourgeois Work Phone: [facility] 06-24-2023 11:11-0500 Respiratory rate 16 /min Dr. Carl Bourgeois Work Phone: [facility] 06-24-2023 11:11-0500 SaO2% (BldA) [Mass fraction] 99 % Dr. Carl Bourgeois Work Phone: [facility] 06-24-2023 11:11-0500 Systolic blood pressure 140 mm[Hg] Dr. Carl Bourgeois Work Phone: [facility] 05-24-2023 11:12-0500 Body height 167.[address] Carl Bourgeois Work Phone: [facility] 05-24-2023 11:12-0500 Body mass index (BMI) [Ratio] 31.8 kg/m2 Dr. Carl Bourgeois Work Phone: [facility] 05-24-2023 11:12-0500 Body temperature 97.8 [degF] Dr. Carl Bourgeois Work Phone: [facility] 05-24-2023 11:12-0500 Body weight 89.[address] Carl Bourgeois Work Phone: [facility] 05-24-2023 11:12-0500 Diastolic blood pressure 80 mm[Hg] Dr. Carl Bourgeois Work Phone: [facility] 05-24-2023 11:12-0500 Heart rate 58 /min Dr. Carl Bourgeois Work Phone: [facility] 05-24-2023 11:12-0500 Respiratory rate 16 /min Dr. Carl Bourgeois Work Phone: [facility] 05-24-2023 11:12-0500 SaO2% (BldA) [Mass fraction] 98 % Dr. Carl Bourgeois Work Phone: [facility] 05-24-2023 11:12-0500 Systolic blood pressure 140 mm[Hg] Dr. Carl Bourgeois Work Phone: [facility] 2023 05:44-0400 Body mass index (BMI) [Ratio] 31.8 kg/m2 Dr. Carl Bourgeois Work Phone: [facility] 2023 05:44-0400 Body temperature 97.8 [degF] Dr. Carl Bourgeois Work Phone: [facility] 2023 05:44-0400 Body weight 89.[address] Carl Bourgeois Work Phone: [facility] 2023 05:44-0400 Diastolic blood pressure 74 mm[Hg] Dr. Carl Bourgeois Work Phone: [facility] 2023 05:44-0400 Heart rate 70 /min Dr. Carl Bourgeois Work Phone: [facility] 2023 05:44-0400 Respiratory rate 17 /min Dr. Carl Bourgeois Work Phone: [facility] 2023 05:44-0400 SaO2% (BldA) [Mass fraction] 95 % Dr. Carl Bourgeois Work Phone: [facility] 2023 05:44-0400 Systolic blood pressure 138 mm[Hg] Dr. Carl Bourgeois Work Phone: [facility] 04-22-2023 13:16-0400 Body mass index (BMI) [Ratio] 32.3 kg/m2 Dr. Carl Bourgeois Work Phone: [facility] 04-22-2023 13:16-0400 Body temperature 97.8 [degF] Dr. Carl Bourgeois Work Phone: [facility] 04-22-2023 13:16-0400 Body weight 90.[address] Carl Bourgeois Work Phone: [facility] 04-22-2023 13:16-0400 Diastolic blood pressure 70 mm[Hg] Dr. Carl Bourgeois Work Phone: [facility] 04-22-2023 13:16-0400 Heart rate 65 /min Dr. Carl Bourgeois Work Phone: [facility] 04-22-2023 13:16-0400 Respiratory rate 17 /min Dr. Carl Bourgeois Work Phone: [facility] 04-22-2023 13:16-0400 SaO2% (BldA) [Mass fraction] 95 % Dr. Carl Bourgeois Work Phone: [facility] 04-22-2023 13:16-0400 Systolic blood pressure 148 mm[Hg] Dr. Carl Bourgeois Work Phone: [facility] 03-16-2023 21:18-0400 Diastolic blood pressure 66 mm[Hg] Dr. Carl Bourgeois Work Phone: [facility] 03-16-2023 21:18-0400 Heart rate 82 /min Dr. Carl Bourgeois Work Phone: [facility] 03-16-2023 21:18-0400 Systolic blood pressure 117 mm[Hg] Dr. Carl Bourgeois Work Phone: [facility] 03-16-2023 13:05-0400 Body height 167.[address] Carl Bourgeois Work Phone: [facility] 03-16-2023 13:05-0400 Body mass index (BMI) [Ratio] 31.9 kg/m2 Dr. Carl Bourgeois Work Phone: [facility] 03-16-2023 13:05-0400 Body temperature 98.2 [degF] Dr. Carl Bourgeois Work Phone: [facility] 03-16-2023 13:05-0400 Body weight 89.[address] Carl Bourgeois Work Phone: [facility] 03-16-2023 13:05-0400 Respiratory rate 17 /min Dr. Carl Bourgeois Work Phone: [facility] 03-16-2023 13:05-0400 SaO2% (BldA) [Mass fraction] 95 % Dr. Carl Bourgeois Work Phone: [facility] 03-10-2023 14:19-0400 Body temperature 97.3 [degF] Dr. Carl Bourgeois Work Phone: [facility] 03-10-2023 14:19-0400 Diastolic blood pressure 65 mm[Hg] Dr. Carl Bourgeois Work Phone: [facility] 03-10-2023 14:19-0400 Heart rate 66 /min Dr. Carl Bourgeois Work Phone: [facility] 03-10-2023 14:19-0400 Respiratory rate 16 /min Dr. Carl Bourgeois Work Phone: [facility] 03-10-2023 14:19-0400 SaO2% (BldA) [Mass fraction] 94 % Dr. Carl Bourgeois Work Phone: [facility] 03-10-2023 14:19-0400 Systolic blood pressure 135 mm[Hg] Dr. Carl Bourgeois Work Phone: [facility] 03-05-2023 05:57-0400 Body mass index (BMI) [Ratio] 33.4 kg/m2 Dr. Carl Bourgeois Work Phone: [facility] 03-05-2023 05:57-0400 Body weight 94.[address] Carl Bourgeois Work Phone: [facility] 03-04-2023 13:56-0400 Body height 167.[address] Carl Bourgeois Work Phone: [facility] 02-25-2023 21:46-0400 Inhaled oxygen concentration 21 % Dr. Carl Bourgeois Work Phone: [facility] 02-25-2023 21:46-0400 Inhaled oxygen flow rate 0 L/min Dr. Carl Bourgeois Work Phone: [facility] 02-22-2023 03:59-0400 Diastolic blood pressure 68 mm[Hg] Dr. Carl Bourgeois Work Phone: [facility] 02-22-2023 03:59-0400 Heart rate 66 /min Dr. Carl Bourgeois Work Phone: [facility] 02-22-2023 03:59-0400 Respiratory rate 16 /min Dr. Carl Bourgeois Work Phone: [facility] 02-22-2023 03:59-0400 SaO2% (BldA) [Mass fraction] 97 % Dr. Carl Bourgeois Work Phone: [facility] 02-22-2023 03:59-0400 Systolic blood pressure 147 mm[Hg] Dr. Carl Bourgeois Work Phone: [facility] 02-21-2023 22:58-0400 Body height 167.[address] Carl Bourgeois Work Phone: [facility] 02-21-2023 22:58-0400 Body mass index (BMI) [Ratio] 34.6 kg/m2 Dr. Carl Bourgeois Work Phone: [facility] 02-21-2023 22:58-0400 Body temperature 97.6 [degF] Dr. Carl Bourgeois Work Phone: [facility] 02-21-2023 22:58-0400 Body weight 97.[address] Carl Bourgeois Work Phone: [facility] 02-09-2023 10:44-0400 Body temperature 97.6 [degF] Dr. Carl Bourgeois Work Phone: [facility] 02-09-2023 10:44-0400 Diastolic blood pressure 82 mm[Hg] Dr. Carl Bourgeois Work Phone: [facility] 02-09-2023 10:44-0400 Heart rate 60 /min Dr. Carl Bourgeois Work Phone: [facility] 02-09-2023 10:44-0400 Respiratory rate 17 /min Dr. Carl Bourgeois Work Phone: [facility] 02-09-2023 10:44-0400 SaO2% (BldA) [Mass fraction] 99 % Dr. Carl Bourgeois Work Phone: [facility] 02-09-2023 10:44-0400 Systolic blood pressure 132 mm[Hg] Dr. Carl Bourgeois Work Phone: [facility] 01-05-2023 09:21-0400 Body mass index (BMI) [Ratio] 31.9 kg/m2 Dr. Carl Bourgeois Work Phone: [facility] 01-05-2023 09:21-0400 Diastolic blood pressure 86 mm[Hg] Dr. Carl Bourgeois Work Phone: [facility] 01-05-2023 09:21-0400 Systolic blood pressure 128 mm[Hg] Dr. Carl Bourgeois Work Phone: [facility] 01-05-2023 09:05-0400 Body height 167.[address] Carl Bourgeois Work Phone: [facility] 01-05-2023 09:05-0400 Body temperature 97.8 [degF] Dr. Carl Bourgeois Work Phone: [facility] 01-05-2023 09:05-0400 Body weight 89.[address] Carl Bourgeois Work Phone: [facility] 01-05-2023 09:05-0400 Heart rate 67 /min Dr. Carl Bourgeois Work Phone: [facility] 01-05-2023 09:05-0400 Respiratory rate 16 /min Dr. Carl Bourgeois Work Phone: [facility] 01-05-2023 09:05-0400 SaO2% (BldA) [Mass fraction] 97 % Dr. Carl Bourgeois Work Phone: [facility] 12-02-2022 09:48-0400 Body mass index (BMI) [Ratio] 31 kg/m2 Dr. Carl Bourgeois Work Phone: [facility] 12-02-2022 09:48-0400 Diastolic blood pressure 80 mm[Hg] Dr. Carl Bourgeois Work Phone: [facility] 12-02-2022 09:48-0400 Systolic blood pressure 126 mm[Hg] Dr. Carl Bourgeois Work Phone: [facility] 12-02-2022 09:37-0400 Body temperature 97.8 [degF] Dr. Carl Bourgeois Work Phone: [facility] 12-02-2022 09:37-0400 Body weight 87.[address] Carl Bourgeois Work Phone: [facility] 12-02-2022 09:37-0400 Heart rate 66 /min Dr. Carl Bourgeois Work Phone: [facility] 12-02-2022 09:37-0400 Respiratory rate 17 /min Dr. Carl Bourgeois Work Phone: [facility] 12-02-2022 09:37-0400 SaO2% (BldA) [Mass fraction] 98 % Dr. Carl Bourgeois Work Phone: [facility] 11-09-2022 15:32-0400 Body height 167.[address] Carl Bourgeois Work Phone: [facility] 11-09-2022 15:32-0400 Body mass index (BMI) [Ratio] 31.5 kg/m2 Dr. Carl Bourgeois Work Phone: [facility] 11-09-2022 15:32-0400 Body temperature 97.8 [degF] Dr. Carl Bourgeois Work Phone: [facility] 11-09-2022 15:32-0400 Body weight 88.[address] Carl Bourgeois Work Phone: [facility] 11-09-2022 15:32-0400 Diastolic blood pressure 80 mm[Hg] Dr. Carl Bourgeois Work Phone: [facility] 11-09-2022 15:32-0400 Heart rate 59 /min Dr. Carl Bourgeois Work Phone: [facility] 11-09-2022 15:32-0400 Respiratory rate 17 /min Dr. Carl Bourgeois Work Phone: [facility] 11-09-2022 15:32-0400 SaO2% (BldA) [Mass fraction] 97 % Dr. Carl Bourgeois Work Phone: [facility] 11-09-2022 15:32-0400 Systolic blood pressure 150 mm[Hg] Dr. Carl Bourgeois Work Phone: [facility] 10-29-2022 08:39-0400 Body height 167.[address] Carl Bourgeois Work Phone: [facility] 10-29-2022 08:39-0400 Body mass index (BMI) [Ratio] 30.8 kg/m2 Dr. Carl Bourgeois Work Phone: [facility] 10-29-2022 08:39-0400 Body temperature 95.9 [degF] Dr. Carl Bourgeois Work Phone: [facility] 10-29-2022 08:39-0400 Body weight 86.[address] Carl Bourgeois Work Phone: [facility] 10-29-2022 08:39-0400 Diastolic blood pressure 73 mm[Hg] Dr. Carl Bourgeois Work Phone: [facility] 10-29-2022 08:39-0400 Heart rate 64 /min Dr. Carl Bourgeois Work Phone: [facility] 10-29-2022 08:39-0400 Inhaled oxygen flow rate 94 L/min Dr. Carl Bourgeois Work Phone: [facility] 10-29-2022 08:39-0400 Respiratory rate 18 /min Dr. Carl Bourgeois Work Phone: [facility] 10-29-2022 08:39-0400 SaO2% (BldA) [Mass fraction] 94 % Dr. Carl Bourgeois Work Phone: [facility] 10-29-2022 08:39-0400 Systolic blood pressure 126 mm[Hg] Dr. Carl Bourgeois Work Phone: [facility] 10-10-2022 13:14-0400 Heart rate 63 /min Dr. Carl Bourgeois Work Phone: [facility] 10-10-2022 13:14-0400 Respiratory rate 16 /min Dr. Carl Bourgeois Work Phone: [facility] 10-10-2022 13:02-0400 Body temperature 98.2 [degF] Dr. Carl Bourgeois Work Phone: [facility] 10-10-2022 13:02-0400 Diastolic blood pressure 63 mm[Hg] Dr. Carl Bourgeois Work Phone: [facility] 10-10-2022 13:02-0400 SaO2% (BldA) [Mass fraction] 2 % Dr. Carl Bourgeois Work Phone: [facility] 10-10-2022 13:02-0400 Systolic blood pressure 119 mm[Hg] Dr. Carl Bourgeois Work Phone: [facility] 10-10-2022 12:33-0400 Inhaled oxygen flow rate 2 L/min Dr. Carl Bourgeois Work Phone: [facility] 10-10-2022 11:38-0400 Body mass index (BMI) [Ratio] 30.7 kg/m2 Dr. Carl Bourgeois Work Phone: [facility] 10-08-2022 15:48-0400 Body height 167.[address] Carl Bourgeois Work Phone: [facility] 10-08-2022 15:48-0400 Body weight 86.[address] Carl Bourgeois Work Phone: [facility] 10-08-2022 15:35-0400 Body temperature 97.9 [degF] Dr. Carl Bourgeois Work Phone: [facility] 10-08-2022 15:35-0400 Diastolic blood pressure 72 mm[Hg] Dr. Carl Bourgeois Work Phone: [facility] 10-08-2022 15:35-0400 Heart rate 78 /min Dr. Carl Bourgeois Work Phone: [facility] 10-08-2022 15:35-0400 Inhaled oxygen flow rate 2 L/min Dr. Carl Bourgeois Work Phone: [facility] 10-08-2022 15:35-0400 Respiratory rate 16 /min Dr. Carl Bourgeois Work Phone: [facility] 10-08-2022 15:35-0400 SaO2% (BldA) [Mass fraction] 96 % Dr. Carl Bourgeois Work Phone: [facility] 10-08-2022 15:35-0400 Systolic blood pressure 144 mm[Hg] Dr. Carl Bourgeois Work Phone: [facility] 10-08-2022 12:30-0400 Body height 167.[address] Carl Bourgeois Work Phone: [facility] 10-08-2022 12:30-0400 Body mass index (BMI) [Ratio] 30.3 kg/m2 Dr. Carl Bourgeois Work Phone: [facility] 10-08-2022 12:30-0400 Body weight 85.[address] Carl Bourgeois Work Phone: [facility] 10-06-2022 11:20-0400 Body mass index (BMI) [Ratio] 30.9 kg/m2 Dr. Carl Bourgeois Work Phone: [facility] 10-06-2022 11:20-0400 Body temperature 97 [degF] Dr. Carl Bourgeois Work Phone: [facility] 10-06-2022 11:20-0400 Body weight 87.[address] Carl Bourgeois Work Phone: [facility] 10-06-2022 11:20-0400 Diastolic blood pressure 70 mm[Hg] Dr. Carl Bourgeois Work Phone: [facility] 10-06-2022 11:20-0400 Heart rate 60 /min Dr. Carl Bourgeois Work Phone: [facility] 10-06-2022 11:20-0400 Respiratory rate 16 /min Dr. Carl Bourgeois Work Phone: [facility] 10-06-2022 11:20-0400 SaO2% (BldA) [Mass fraction] 96 % Dr. Carl Bourgeois Work Phone: [facility] 10-06-2022 11:20-0400 Systolic blood pressure 116 mm[Hg] Dr. Carl Bourgeois Work Phone: [facility] 07-08-2022 14:17-0500 Diastolic blood pressure 72 mm[Hg] Dr. Carl Bourgeois Work Phone: [facility] 07-08-2022 14:17-0500 Systolic blood pressure 104 mm[Hg] Dr. Carl Bourgeois Work Phone: [facility] 07-08-2022 11:07-0500 Body height 167.[address] Carl Bourgeois Work Phone: [facility] 07-08-2022 11:07-0500 Body mass index (BMI) [Ratio] 30.9 kg/m2 Dr. Carl Bourgeois Work Phone: [facility] 07-08-2022 11:07-0500 Body temperature 98.4 [degF] Dr. Carl Bourgeois Work Phone: [facility] 07-08-2022 11:07-0500 Body weight 86.[address] Carl Bourgeois Work Phone: [facility] 07-08-2022 11:07-0500 Heart rate 57 /min Dr. Carl Bourgeois Work Phone: [facility] 07-08-2022 11:07-0500 Respiratory rate 16 /min Dr. Carl Bourgeois Work Phone: [facility] 07-08-2022 11:07-0500 SaO2% (BldA) [Mass fraction] 99 % Dr. Carl Bourgeois Work Phone: [facility] 04-30-2022 14:30-0400 Body temperature 98.6 [degF] Dr. Carl Bourgeois Work Phone: [facility] 04-30-2022 14:30-0400 Diastolic blood pressure 77 mm[Hg] Dr. Carl Bourgeois Work Phone: [facility] 04-30-2022 14:30-0400 Heart rate 63 /min Dr. Carl Bourgeois Work Phone: [facility] 04-30-2022 14:30-0400 Respiratory rate 16 /min Dr. Carl Bourgeois Work Phone: [facility] 04-30-2022 14:30-0400 SaO2% (BldA) [Mass fraction] 97 % Dr. Calr Bourgeois Work Phone: [facility] 04-30-2022 14:30-0400 Systolic blood pressure 139 mm[Hg] Dr. Carl Bourgeois Work Phone: [facility] 04-30-2022 13:49-0400 Body mass index (BMI) [Ratio] 30.3 kg/m2 Dr. Carl Bourgeois Work Phone: [facility] 2022 14:27-0400 Body height 167.[address] Carl Bourgeois Work Phone: [facility] Work Phone: 2022 14:27-0400 Body weight 85.[address] Carl Bourgeois Work Phone: [facility] 2022 13:27-0400 Body temperature 98.3 [degF] Dr. Carl Bourgeois Work Phone: [facility] Work Phone: 2022 13:27-0400 Diastolic blood pressure 75 mm[Hg] Dr. Carl Bourgeois Work Phone: [facility] Work Phone: 2022 13:27-0400 Heart rate 55 /min Dr. Carl Bourgeois Work Phone: [facility] Work Phone: 2022 13:27-0400 Respiratory rate 16 /min Dr. Carl Bourgeois Work Phone: [facility] Work Phone: 2022 13:27-0400 SaO2% (BldA) [Mass fraction] 100 % Dr. Carl Bourgeois Work Phone: [facility] Work Phone: 2022 13:27-0400 Systolic blood pressure 138 mm[Hg] Dr. Carl Bourgeois Work Phone: [facility] Work Phone: 2022 11:07-0400 Body height 165.[address] Carl Bourgeois Work Phone: [facility] Work Phone: 2022 11:07-0400 Body mass index (BMI) [Ratio] 30.7 kg/m2 Dr. Carl Bourgeois Work Phone: [facility] Work Phone: 2022 11:07-0400 Body weight 83.[address] Carl Bourgeois Work Phone: [facility] Work Phone: 04-07-2022 09:56-0400 Body temperature 97.5 [degF] Dr. Carl Bourgeois Work Phone: [facility] Work Phone: 04-07-2022 09:56-0400 Body weight 85.[address] Carl Bourgeois Work Phone: [facility] Work Phone: 04-07-2022 09:56-0400 Diastolic blood pressure 63 mm[Hg] Dr. Carl Bourgeois Work Phone: [facility] Work Phone: 04-07-2022 09:56-0400 Heart rate 56 /min Dr. Carl Bourgeois Work Phone: [facility] Work Phone: 04-07-2022 09:56-0400 Respiratory rate 18 /min Dr. Carl Bourgeois Work Phone: [facility] Work Phone: 04-07-2022 09:56-0400 SaO2% (BldA) [Mass fraction] 98 % Dr. Carl Bourgeois Work Phone: [facility] Work Phone: 04-07-2022 09:56-0400 Systolic blood pressure 121 mm[Hg] Dr. Carl Bourgeois Work Phone: [facility] Work Phone: Encounters Encounter Date Encounter Type Care Provider Facility Start: 12-21-2024 End: 12-21-[address] Hoang Ugarte MD -[facility] Work Phone: Start: 12-21-2024 End: 12-21-[address] Carl Bourgeois DO Work Phone: [facility] Work Phone: Start: 12-06-2024 End: 12-06-[address] Carl Bourgeois DO Work Phone: [facility] Work Phone: Start: 12-06-2024 End: 12-06-2024 Patient encounter procedure NADIRA Kellogg -Sleep Lab Work Phone: Start: 12-06-2024 End: 12-06-2024 ambulatory [facility] Facility:[facility] Start: 11-28-2024 End: 11-28-[address] Carl Bourgeois DO Work Phone: [facility] Work Phone: Start: 11-28-2024 End: 11-28-[address] Gerri Tejeda MD -[facility] Work Phone: Start: 11-28-2024 End: 11-28-[address] Hoang Ugarte MD -[facility] Work Phone: Start: 11-28-2024 End: 11-28-[address] Carl Bourgeois DO Work Phone: [facility] Work Phone: Start: 11-28-2024 End: 11-28-[address] [facility] Start: 11-21-2024 End: 11-21-2024 Patient encounter procedure NADIRA Kellogg -[facility] Work Phone: Start: 11-21-2024 End: 11-21-2024 ambulatory Carl Bourgeois Facility:[facility] Start: 11-20-2024 End: 11-20-[address] Hoang Ugarte MD -[facility] Work Phone: Start: 11-20-2024 End: 11-20-2024 ambulatory Hoang Ugarte Facility:[facility] Start: 11-14-2024 End: 11-14-[address] Carl Bourgeois DO Work Phone: [facility] Work Phone: Start: 11-14-2024 End: 11-14-[address] Carl Bourgeois DO -Laboratory, [place] Work Phone: Start: 11-14-2024 End: 11-14-2024 ambulatory Carl Bourgeois Facility:[facility] Start: 10-19-2024 End: 10-19-[address] Hoang Ugarte MD -[facility] Work Phone: Start: 10-19-2024 End: 10-19-2024 ambulatory Hoang Ugarte Facility:[facility] Start: 09-27-2024 End: 09-27-[address] Carl Bourgeois DO Work Phone: [facility] Work Phone: Start: 09-27-2024 End: 09-27-[address] Gerri Tejeda MD -Laboratory, [place] Work Phone: Start: 09-27-2024 End: 09-27-2024 Patient encounter procedure Narciso Valderrama DO -[facility] Work Phone: Start: 09-27-2024 End: 09-27-2024 ambulatory Carl Bourgeois Facility:[facility] Start: 09-27-2024 End: 09-27-2024 ambulatory Carl Bourgeois Facility:[facility] Start: 09-20-2024 End: 09-20-2024 ambulatory Derik Pratt Facility:[facility] Start: 09-20-2024 End: 09-20-[address] Derik Pratt DO -Occupational Therapy Work Phone: Start: 09-19-2024 End: 09-19-[address] Hoang Ugarte MD -[facility] Work Phone: Start: 09-19-2024 End: 09-19-2024 ambulatory [facility] Facility:[facility] Start: 08-09-2024 End: 08-09-[address] Carl Bourgeois DO -Outpatient Bone Densitometry Work Phone: Start: 08-09-2024 End: 08-09-2024 ambulatory Carl Bourgeois Facility:[facility] Start: 07-31-2024 End: 07-31-[address] Hoang Ugarte MD -Radiology, [place] Work Phone: Start: 07-31-2024 End: 07-31-[address] Hoang Ugarte MD -[facility] Work Phone: Start: 07-31-2024 End: 07-31-2024 ambulatory [facility] Facility:[facility] Start: 07-31-2024 End: 07-31-2024 ambulatory [facility] Facility:[facility] Start: 07-27-2024 ambulatory Carl Batesman Facility: [facility] Start: 07-27-2024 Non-patient / Non-visit Dr. Naga Bates MD -[facility] Start: 07-27-2024 End: 07-27-2024 Admission to same day surgery center Dr. Naga Bates MD -Endoscopy Work Phone: Start: 07-27-2024 End: 07-27-2024 ambulatory Naga Bates Facility:[facility] Start: 07-13-2024 End: 07-13-20[facility] Start: 07-13-2024 End: 07-13-[address] Hoang Ugarte MD -Physical Therapy Work Phone: Start: 06-28-2024 Non-patient / Non-visit Dr. Carl Bourgeois DO Work Phone: -[facility] Work Phone: Start: 06-28-2024 ambulatory Chante Li Facility:[facility] Start: 06-27-2024 End: 06-27-[address] Carl Bourgeois DO -Laboratory, [facility] Start: 06-26-2024 End: 06-26-[address] Hoang Ugarte MD -[facility] Work Phone: Start: 06-26-2024 End: 06-27-2024 ambulatory Carl Bourgeois Facility:[facility] Start: 06-23-2024 End: 06-23-[address] Carl Bourgeois DO -Outpatient Breast Imaging Work Phone: Start: 06-23-2024 End: 06-23-[address] [facility] Start: 06-21-2024 End: 06-21-[address] Gerri Tejeda MD -Laboratory, [place] Work Phone: Start: 06-21-2024 End: 06-21-2024 ambulatory Gerri Tejeda Facility:[facility] Start: 05-26-2024 End: 05-26-2024 ambulatory [facility] Facility:[facility] Start: 05-18-2024 End: 05-18-2024 ambulatory Carl Bourgeois Facility:[facility] Start: 05-15-2024 End: 05-15-2024 ambulatory Hoang Ugarte Facility:[facility] Start: 04-26-2024 End: 04-26-2024 ambulatory Derik [facility] Facility:[facility] Start: 04-19-2024 End: 04-19-2024 ambulatory [facility] Facility:[facility] Start: 04-13-2024 End: 04-13-2024 ambulatory Hoang Ugarte Facility:[facility] Start: 04-12-2024 End: 04-12-2024 ambulatory Carl Batesman Facility:[facility] Start: 04-09-2024 End: 04-09-2024 Emergency department patient visit Carl Bourgeois Facility:[facility] Start: 04-04-2024 End: 04-04-2024 ambulatory [facility] Facility:[facility] Start: 03-27-2024 End: 03-27-2024 ambulatory Carl Bk Facility:[facility] Start: 03-13-2024 End: 03-[facility] Start: 02-10-2024 End: 02-10-[facility] Start: 01-10-2024 End: 01-10-20[facility] Start: 12-31-2023 End: 12-31-2023 ambulatory Carl AndersBk Facility:[facility] Start: 11-11-2023 End: 11-11-[address] Carl Bourgeois Work Phone: [facility] Work Phone: Start: 11-11-2023 End: 11-11-[address] Carl Bourgeois Work Phone: [facility]-Sleep Lab Work Phone: Start: 11-04-2023 End: 11-04-[address] Carl Bourgeois Work Phone: [facility] Pulmonary Medicine Work Phone: Start: 11-04-2023 End: 11-04-[address] Carl Bourgeois Work Phone: [facility] Work Phone: Start: 11-04-2023 End: 11-04-[address] Carl Bourgeois Work Phone: [facility]-Physical Therapy Work Phone: Start: 10-25-2023 End: 10-25-[address] Carl Bourgeois Work Phone: [facility] Neurology Work Phone: Start: 10-14-[address] [facility] Start: 10-08-2023 End: 10-08-[address] Carl Bourgeois Work Phone: [facility] Work Phone: Start: 10-08-2023 End: 10-08-[address] Carl Bourgeois Work Phone: [facility] Work Phone: Start: 09-21-2023 End: 09-21-[address] Carl Bourgeois Work Phone: [facility] Neurology Work Phone: Start: 08-10-2023 End: 08-10-[address] Carl Bourgeois Work Phone: [facility] Neurology Work Phone: Start: 07-29-2023 End: 07-29-[address] Carl Bourgeois Work Phone: [facility] Neurology Work Phone: Start: 07-22-2023 End: 07-22-[address] Carl Bourgeois Work Phone: [facility]-Pulmonary Medicine [facility] Work Phone: Start: 07-21-2023 End: 07-21-[address] Carl Bourgeois Work Phone: [facility] Work Phone: Start: 06-28-2023 End: 06-28-[address] Carl Bourgeois Work Phone: [facility] Work Phone: Start: 06-24-2023 End: 06-24-[address] Carl Bourgeois Work Phone: [facility] Neurology Work Phone: Start: 06-14-[address] Carl Bourgeois Work Phone: [facility]-Physical Therapy Work Phone: Start: 06-09-2023 End: 06-09-[address] Carl Bourgeois Work Phone: [facility] Work Phone: Start: 06-09-2023 End: 06-09-[address] Carl Bourgeois Work Phone: [facility]-Outpatient Breast Imaging Work Phone: Start: 05-24-2023 End: 05-24-[address] Carl Bourgeois Work Phone: [facility] Neurology Work Phone: Start: 2023 End: [address] Carl Bourgeois Work Phone: [facility]-Pulmonary Medicine [facility] Work Phone: Start: 04-22-2023 End: 04-22-[address] Carl Bourgeois Work Phone: [facility] Neurology Work Phone: Start: 04-12-2023 End: 04-12-[address] Carl Bourgeois Work Phone: [facility] Work Phone: Start: 04-12-2023 End: 04-12-[address] Carl Bourgeois Work Phone: [facility]-Sleep Lab Work Phone: Start: 03-16-2023 End: 03-16-[address] Carl Bourgeois Work Phone: [facility] Neurology Work Phone: Start: 03-09-2023 Non-patient / Non-visit Dr. Carl Bourgeois Work Phone: [facility] Work Phone: Start: 03-08-2023 Non-patient / Non-visit Dr. Carl Bourgeois Work Phone: [facility] Work Phone: Start: 03-04-2023 Non-patient / Non-visit Dr. Carl Bourgeois Work Phone: [facility] Work Phone: Start: 03-02-2023 Non-patient / Non-visit Dr. Carl Bourgeois Work Phone: [facility] Work Phone: Start: 03-01-2023 Non-patient / Non-visit Dr. Carl Bourgeois Work Phone: [facility] Work Phone: Start: 02-26-2023 Non-patient / Non-visit Dr. Carl Bourgeois Work Phone: [facility] Work Phone: Start: 02-25-2023 Non-patient / Non-visit Dr. Carl Bourgeois Work Phone: [facility] Work Phone: Start: 02-24-2023 End: 03-10-2023 Evaluation and management of inpatient Dr. Carl Bourgeois Work Phone: [facility]-Rehab Unit Work Phone: Start: 02-21-2023 End: 02-22-2023 Emergency department patient visit Dr. Carl Bourgeois Work Phone: [facility]-Emergency Department Work Phone: Start: 02-09-2023 End: 02-09-[address] Carl Bourgeois Work Phone: [facility] Neurology Work Phone: Start: 01-21-2023 End: 01-21-[address] Carl Bourgeois Work Phone: [facility] Work Phone: Start: 01-21-2023 End: 01-21-[address] Carl Bourgeois Work Phone: [facility] Work Phone: Start: 01-07-2023 End: 01-07-[address] Carl Bourgeois Work Phone: [facility] Work Phone: Start: 01-07-2023 End: 01-07-[address] Carl Bourgeois Work Phone: [facility] Start: 01-05-2023 End: 01-05-[address] Carl Bourgeois Work Phone: [facility] Neurology Start: 12-02-2022 End: 12-02-[address] Carl Bourgeois Work Phone: [facility] Start: 11-30-2022 End: 11-30-[address] Carl Bourgeois Work Phone: [facility] Work Phone: Start: 11-30-2022 End: 11-30-[address] Carl Bourgeois Work Phone: [facility]-Physical Therapy Start: 11-09-2022 End: 11-09-[address] Carl Bourgeois Work Phone: [facility] Start: 11-04-[address] Carl Bourgeois Work Phone: [facility]-Physical Therapy Start: 10-29-2022 End: 10-29-[address] Carl Bourgeois Work Phone: [facility]-Pulmonary Medicine [facility] Start: 10-27-2022 End: 10-27-[address] Carl Bourgeois Work Phone: [facility] Work Phone: Start: 10-27-2022 End: 10-27-[address] Carl Bourgeois Work Phone: [facility] Start: 10-10-2022 Non-patient / Non-visit Dr. Carl Bourgeois Work Phone: [facility] Start: 10-09-2022 Non-patient / Non-visit Dr. Carl Bourgeois Work Phone: [facility] Start: 10-08-2022 Non-patient / Non-visit Dr. Carl Bourgeois Work Phone: [facility] Start: 10-08-2022 End: 10-10-2022 Evaluation and management of inpatient Dr. Carl Bourgeois Work Phone: [facility]-Progressive Care Unit Start: 10-06-2022 End: 10-06-[address] Carl Bourgeois Work Phone: [facility] Start: 10-01-[address] Carl Bourgeois Work Phone: [facility]-Physical Therapy Start: 09-24-[address] Carl Bourgeois Work Phone: [facility]-Physical Therapy Start: 09-18-2022 End: 09-18-[address] Carl Bourgeois Work Phone: [facility] Work Phone: Start: 09-18-2022 End: 09-18-[address] [facility] Start: 08-16-2022 End: 08-16-2022 Non-patient / Non-visit Dr. Carl Bourgeois Work Phone: [facility] Start: 08-04-[address] Carl Bourgeois Work Phone: [facility]-Physical Therapy Start: 07-28-2022 End: 07-28-[address] Carl Bourgeois Work Phone: [facility] Work Phone: Start: 07-28-2022 End: 07-28-[address] Carl Bourgeois Work Phone: [facility] Start: 07-24-2022 End: 07-24-[address] Carl Bourgeois Work Phone: [facility] Work Phone: Start: 07-24-2022 End: 07-24-[address] Carl Bourgeois Work Phone: [facility] Start: 07-24-2022 End: 07-24-[address] Carl Bourgeois Work Phone: [facility] Work Phone: Start: 07-24-2022 End: 07-24-[address] Carl Bourgeois Work Phone: [facility] Start: 07-18-[address] Carl stewart Work Phone: [facility]-Cardiovascular Services Start: 07-08-2022 End: 07-08-[address] Carl Bourgeois Work Phone: [facility] Neurology Start: 06-09-[address] Carl Bourgeois Work Phone: [facility]-Physical Therapy Start: 06-08-2022 End: 06-08-[address] Carl Bourgeois Work Phone: [facility] Start: 06-02-2022 End: 06-02-[address] Carl Bourgeois Work Phone: [facility] Work Phone: Start: 06-02-2022 End: 06-02-[address] Carl Bourgeois Work Phone: [facility]-Outpatient Breast Imaging Start: 05-22-2022 End: 05-22-[address] Carl Bourgeois Work Phone: [facility] Work Phone: Start: 05-22-2022 End: 05-22-[address] Carl Bourgeois Work Phone: [facility]-MRI - [facility] Start: 05-21-[address] Carl Bourgeois Work Phone: [facility]-Physical Therapy Start: 05-19-2022 End: 05-19-[address] Carl Bourgeois Work Phone: [facility] Work Phone: Start: 05-19-2022 End: 05-19-[address] Carl Bourgeois Work Phone: [facility]-Speech Therapy Start: 05-07-2022 End: 05-07-[address] Carl Bourgeois Work Phone: [facility] Work Phone: Start: 05-07-2022 End: 05-07-[address] Carl Bourgeois Work Phone: [facility] Start: 05-07-[address] Carl Bourgeois Work Phone: [facility]-Speech Therapy Start: 04-30-2022 Non-patient / Non-visit Dr. Carl Bourgeois Work Phone: [facility] Start: 2022 Non-patient / Non-visit Dr. Carl Bourgeois Work Phone: [facility] Start: 2022 Non-patient / Non-visit Dr. Carl Bourgeois Work Phone: [facility] Start: 2022 End: 04-30-2022 Evaluation and management of inpatient Dr. Carl Bourgeois Work Phone: [facility]-Progressive Care Unit Start: 2022 End: 2022 Emergency department patient visit Dr. Carl Bourgeois Work Phone: [facility]-Emergency Department Start: 04-15-2022 End: 04-15-[address] Carl Bourgeois Work Phone: [facility] Start: 04-07-2022 End: 04-07-[address] Carl Bourgeois Work Phone: [facility] Vascular Surgery Start: 03-31-2022 End: 03-31-2022 [facility] Work Phone: Start: 03-31-2022 End: 03-31-2022 Patient encounter procedure [facility] Start: 03-26-2022 End: 03-26-2022 ambulatory [facility] Work Phone: Start: 03-26-2022 End: 03-26-2022 Patient encounter procedure [facility]-Cardiovascular Services Start: 02-02-2022 End: 02-02-2022 Patient encounter procedure [facility] Start: 01-28-2022 End: 01-28-2022 Patient encounter procedure [facility] Start: 10-28-2021 End: 10-28-2021 Patient encounter procedure [facility] Start: 10-08-2021 End: 10-08-2021 [facility] Start: 08-05-2021 End: 08-05-2021 Patient encounter procedure [facility] Procedures Date Procedure Procedure Detail Performing Clinician Start: 11-14-2024 Acetylcholine recept or blocking antibody measurement Dr. Carl Bourgeois DO Work Phone: Comment on above: Negative: 0 - 25 Bor derline: 26 - 30 Positive: >30Performed at: [address] [id number] Director: Ava Jason MD, Phone: [phone] Start: 11-14-2024 Acetylcholine recept or measurement Dr. Carl Bourgeois DO Work Phone: Comment on above: Negative: 0.00 - 0.2 4 Borderline: 0.25 - 0.40 Positive: >0.40 Start: 11-14-2024 X-ray of lumbosacral spine Dr. Carl Bougreois DO Work Phone: Start: 08-09-2024 Dual energy X-ray absorptiometry Dr. Carl Bourgeois DO Work Phone: Start: 07-31-2024 Plain x-ray of pelvi s and lower extremity Dr. Carl Bourgeois DO Work Phone: Start: 06-23-2024 Screening mammography Fernanda Bourgeois DO Work Phone: Start: 06-09-2023 Screening mammography Fernanda Bourgeois Work Phone: Start: 03-01-2023 Measurement of occul t blood in stool specimen using immunoassay Dr. Carl Bourgeois Work Phone: Start: 02-22-2023 Computerized axial tomography of lumbar spine with contrast Dr. Carl Bourgeois Work Phone: Start: 02-22-2023 CT of head without contrast Dr. Carl Bourgeois Work Phone: Start: 10-09-2022 Respiratory Panel (PCR) Dr. Carl Bourgeois Work Phone: Start: 10-08-2022 MRI of brain without contrast Dr. Carl Bourgeois Work Phone: Start: 10-08-2022 Plain chest X-ray Dr. Leatha Bourgeois Work Phone: Start: 10-08-2022 CT angiography of he ad and neck Dr. Carl Bourgeois Work Phone: Start: 10-08-2022 CT of head without contrast Dr. Carl Bourgeois Work Phone: Start: 07-24-2022 MRI of thoracic spine Fernanda Bourgeois Work Phone: Start: 06-02-2022 Screening mammography Fernanda Bourgeois Work Phone: Start: 05-22-2022 MRI of cervical spin e with contrast Dr. Carl Bourgeois Work Phone: Start: 04-30-2022 MRI of brain without contrast Dr. Carl Bourgeois Work Phone: Start: 2022 CT angiography of he ad and neck Dr. Carl Bourgeois Work Phone: Start: 2022 Plain chest X-ray Dr. Leatha Bourgeois Work Phone: Start: 2022 CT of head without contrast Dr. Carl Bourgeois Work Phone: Start: 03-31-2022 MRI of lumbar spine SARS-CoV-2 & FLU Ant igen (Rapid) Dr. Carl Bourgeois Work Phone: Urine culture Dr. Carl lancaster Work Phone: Urine culture Dr. Carl Bates anisha Work Phone: Plan of Treatment Date Care Activity Detail Author Start: 12-26-2024 ambulatory Facility:[facility] Start: 12-06-2024 Continuous pulse oximetry [facility] Start: 07-27-2024 Colsc flx w/rmvl of tumor polyp lesion snare tq COLONOSCOPY W/LESION REMOVAL [facility] Start: 07-27-2024 Patient discharge [facility] Start: 03-10-2023 Patient discharge [facility] Start: 03-09-2023 [facility] Start: 03-09-2023 Referral to service [facility] Start: 03-03-2023 [facility] Start: 03-02-2023 Notification of physician [facility] Start: 03-02-2023 Care regimes management [facility] Start: 02-25-2023 Application of intermittent pneumatic compression device [facility] Start: 02-25-2023 [facility] Start: 02-24-2023 End: 02-24-2023 [facility] Start: 02-24-2023 Recommendation to continue with treatment [facility] Start: 02-24-2023 Urinary bladder training [facility] Start: 02-24-2023 Referral to service [facility] Start: 02-24-2023 Admission procedure [facility] Start: 02-24-2023 Patient referral to dietitian [facility] Start: 02-24-2023 Referral to occupational therapist [facility] Start: 02-24-2023 Vital signs measurements [facility] Start: 02-24-2023 [facility] Start: 02-21-2023 Emergency dept visit high severity&threat funcj EMERGENCY DEPT VISIT HI MDM [facility] Start: 01-07-2023 [facility] Start: 10-10-2022 Patient discharge [facility] Start: 10-09-2022 Contact precautions [facility] Start: 10-09-2022 Respiratory secretion precautions [facility] Start: 10-09-2022 Referral to occupational therapist [facility] Start: 10-09-2022 Referral to service [facility] Start: 10-09-2022 Inhalation therapy procedure [facility] Start: 10-08-2022 Following clinical pathway protocol [facility] Start: 10-08-2022 Ambulation without limitation [facility] Start: 10-08-2022 Assessment of risk of venous thromboembolism [facility] Start: 10-08-2022 Insertion of catheter into peripheral vein [facility] Start: 10-08-2022 Measuring intake and output [facility] Start: 10-08-2022 Providing care according to standard [facility] Start: 10-08-2022 [facility] Start: 10-08-2022 Verification routine [facility] Start: 10-08-2022 Admission procedure [facility] Start: 10-08-2022 Oxygen therapy [facility] Start: 10-08-2022 [facility] Start: 04-30-2022 Patient discharge [facility] Start: 2022 End: 2022 Following clinical pathway protocol [facility] Start: 2022 Transfusion of blood product [facility] Start: 2022 Application of intermittent pneumatic compression device [facility] Start: 2022 Ambulation without limitation [facility] Start: 2022 Assessment of risk of venous thromboembolism [facility] Start: 2022 Cardiac monitoring [facility] Start: 2022 Catheterization of vein [facility] Start: 2022 Continuous pulse oximetry [facility] Start: 2022 Elevation of head of bed [facility] Start: 2022 Exercises [facility] Start: 2022 Implementation of planned interventions [facility] Start: 2022 Incentive spirometry [facility] Start: 2022 Insertion of catheter into peripheral vein [facility] Start: 2022 Measuring intake and output [facility] Start: 2022 Notification of physician [facility] Start: 2022 Oxygen therapy [facility] Start: 2022 Providing care according to standard [facility] Start: 2022 Referral to occupational therapist [facility] Start: 2022 Referral to service [facility] Start: 2022 Speech therapy assessment [facility] Start: 2022 [facility] Start: 2022 CT angiography of head and neck STROKE CTA Head AND Neck W/Con [facility] Work Phone: Start: 2022 CTA Head vessels and Neck vessels W contrast IV [facility] Work Phone: Start: 2022 Admission procedure [facility] Start: 2022 End: 2022 [facility] Work Phone: Alternaria alternata IgE Ab [Units/volume] in Serum [facility] Bolivian Cockroach I gE Ab [Units/volume] in Serum [facility] Bolivian house dust mite IgE Ab [Units/volume] in Serum [facility] Aspergillus fumigatus [facility] Bacteria identified in Urine by Culture Urine Culture [facility] Work Phone: Bermuda grass IgE Ab [Units/volume] in Serum [facility] Box elder [facility] Cat dander [facility] Cladosporium herbaru m IgE Ab [Units/volume] in Serum [facility] Common Ragweed IgE A b [Units/volume] in Serum [facility] Continuous pulse oximetry [facility] [place] [facility] Dog epithelium IgE A b [Units/volume] in Serum [facility] house dust mite IgE Ab [Units/volume] in Serum [facility] Immunoglobulin E measurement [facility] Magnesium [Mass/volu me] in Serum or Plasma [facility] Work Phone: Mouse urine proteins RAST [facility] Patient Education C[facility] for You r Incision Orthostatic Hypotension [facility] Work Phone: Patient referral [facility] Work Phone: Pecan or Mouthcard Nut IgE Ab [Units/volume] in Serum [facility] Rough Pigweed IgE Ab [Units/volume] in Serum [facility] Sheep Pe Ell IgE Ab [Units/volume] in Serum [facility] Silver Birch IgE Ab [Units/volume] in Serum [facility] Leobardo IgE Ab [Units/volume] in Serum [facility] Tree pollen RA[facility] [place] [facility] White Claude IgE Ab [Units/volume] in Serum [facility] White Elm IgE Ab [Units/volume] in Serum [facility] White mulberry IgE A b [Units/volume] in Serum [facility] Work Phone: Immunizations Immunization Date Immunization Notes Care Provider Fa cili 05-18-2024 Seasonal trivalent influenza vaccine, adjuvanted, preservative free Dr. Carl Bourgeois DO Work Phone: [facility] 04-30-2022 influenza, injectabl e, quadrivalent, preservative free Dr. Carl Bourgeois Work Phone: [facility] 04-30-2022 influenza, seasonal, injectable Dr. Carl Bourgeois Work Phone: [facility] 02-24-2022 Covid (Pfizer) Dr. Carl jordan Work Phone: [facility] 05-10-2021 Covid (Pfizer) Dr. Carl jordan Work Phone: [facility] 11-24-2020 tetanus toxoid, redu nina diphtheria toxoid, and acellular pertussis vaccine, adsorbed [facility] 09-24-2020 Covid (Pfizer) Dr. Carl jordan Work Phone: [facility] 09-04-2020 Covid (Pfizer) Dr. Carl jordan Work Phone: [facility] 04-18-2015 influenza, injectabl e, quadrivalent, preservative free Dr. Carl Bourgeois Work Phone: [facility] 04-18-2015 influenza, seasonal, injectable [facility] Payers Date Payer Category Payer Self-pay [id number] 2017 Unknown [id number] 2015 Medicare [id number] fda [id number] 2011 Unknown [id number] Unknown [id number] 2.16.8 40.1.761470.3.579.2.462 Unknown [id number] 2.16.8 40.1.541433.3.579.2.462 Unknown [id number] 2.16.8 40.1.180068.3.579.2.462 Unknown [id number] 2.16.8 40.1.758232.3.579.2.462 Unknown [id number] 2.16.8 40.1.346101.3.579.2.462 Unknown [id number] 2.16.8 40.1.474948.3.579.2.462 Unknown [id number] 2.16.8 40.1.547039.3.579.2.462 Unknown [id number] 2.16.8 40.1.496113.3.579.2.462 Unknown [id number] 2.16.8 40.1.530279.3.579.2.462 Unknown [id number] 2.16.8 40.1.024783.3.579.2.462 Unknown [id number] 2.16.8 40.1.218821.3.579.2.462 Unknown [id number] 2.16.8 40.1.879070.3.579.2.462 Unknown [id number] 2.16.8 40.1.847961.3.579.2.462 Unknown [id number] 2.16.8 40.1.108626.3.579.2.462 Unknown [id number] 2.16.8 40.1.126453.3.579.2.462 Unknown [id number] 2.16.8 40.1.548368.3.579.2.462 Unknown [id number] 2.16.8 40.1.199804.3.579.2.462 Unknown [id number] 2.16.8 40.1.434893.3.579.2.462 Unknown [id number] 2.16.8 40.1.790998.3.579.2.462 Unknown [id number] 2.16.8 40.1.766969.3.579.2.462 Unknown [id number] 2.16.8 40.1.690076.3.579.2.462 Unknown [id number] 2.16.8 40.1.973084.3.579.2.462 Unknown [id number] 2.16.8 40.1.141426.3.579.2.462 Unknown [id number] 2.16.8 40.1.942335.3.579.2.462 Unknown [id number] 2.16.8 40.1.166522.3.579.2.462 Unknown [id number] 2.16.8 40.1.357499.3.579.2.462 Unknown [id number] 2.16.8 40.1.191642.3.579.2.462 Unknown [id number] 2.16.8 40.1.708834.3.579.2.462 Unknown [id number] 2.16.8 40.1.977946.3.579.2.462 Unknown [id number] 2.16.8 40.1.839284.3.579.2.462 Unknown [id number] 2.16.8 40.1.790966.3.579.2.462 Unknown [id number] 2.16.8 40.1.289446.3.579.2.462 Unknown [id number] 2.16.8 40.1.799037.3.579.2.462 Unknown [id number] 2.16.8 40.1.305370.3.579.2.462 Unknown [id number] 2.16.8 40.1.600416.3.579.2.462 Unknown [id number] 2.16.8 40.1.060888.3.579.2.462 Unknown [id number] 2.16.8 40.1.539472.3.579.2.462 Unknown [id number] 2.16.8 40.1.362171.3.579.2.462 Unknown [id number] 2.16.8 40.1.488562.3.579.2.462 Unknown [id number] 2.16.8 40.1.405929.3.579.2.462 Unknown [id number] 2.16.8 40.1.248058.3.579.2.462 Social History Date Type Detail Facility Start: 11-24-2020 End: 10-25-2023 Tobacco smoking status NHIS Unknown if ever smoked [facility] Start: 11-24-2020 Non-smoker [facility] Start: 1950 Sex Assigned At Female [facility] Start: 07-27-2024 Tobacco smoking status NHIS Never smoked tobacco (finding) [facility] Start: 10-06-2024 Sex Female (finding) [facility] NEGATED: Highlighted row Not [facility] Goals Date Patient Goal Desired Activity /State Functional Status Date Assessment Result Facility 03-10-2023 Functional status Chair [facility] Work Phone: 03-09-2023 Functional status [facility] Work Phone: 10-10-2022 Functional status Patient Activity Chair [facility] Work Phone: 10-10-2022 Functional status Activity Abili ty With Assist of 1 [facility] Work Phone: 10-09-2022 Functional status [facility] Work Phone: 04-30-2022 Functional status Activity Abili ty With Assist of 1 [facility] Work Phone: 2022 Functional status Ambulates [facility] Work Phone: Mental Status Date Assessment Result Facility 07-27-2024 Cognitive function Voice/Name [facility] Work Phone: 03-10-2023 Cognitive function Voice/Name [facility] Work Phone: 03-09-2023 Cognitive function Appropriate;Cooperativ e [facility] Work Phone: 02-22-2023 Cognitive function Level Of Cons ciousness Awake;Alert;Appropriate;Follow s Commands [facility] Work Phone: 10-10-2022 Cognitive function Voice/Name [facility] Work Phone: 10-08-2022 Cognitive function Voice/Name [facility] Work Phone: 04-30-2022 Cognitive function Voice/Name [facility] Work Phone: 2022 Cognitive function Level Of Cons ciousness Awake;Alert;Appropriate [facility] Work Phone: Clinical Notes 10-08-2022 to 11-14-2024 Note Date & Type Note Facility 11-14-2024 Radiology Diagnostic study note [facility] Imaging Services [address] [place] [address] L/S Spine Min 4 Views MR#: [id number] Acct: [id number] Name: YADIRA PEREZ Rep #: [id number] : 1950 F 74 From: Jordy Soriano MD PCP: Dr. Carl Bourgeois DO Status: REG CLI Study:L/S Spine Min 4 Views Date of Exam: 11/14/24 Exam# [id number] Ordering Dr: Carl Bourgeois DO PROCEDURE: L/S SPINE MIN 4 VIEWS 11/14/2024 REASON FOR EXAM: BACK PAIN, FALL TECHNIQUE: Four views of the lumbar spine FINDINGS: Vertebrae: No acute fracture. Discs: Disc space heights are preserved. Alignment: Status post transpedicular fixation at L4/L5 with 5 mm of anterolisthesis of L4 on L5. Mild levoscoliosis centered at L3. Other: Facet hypertrophy. RAD/L/S Spine Min 4 Views IMPRESSION: Status post transpedicular fixation at L4/L5 with 5 mm of anterolisthesis of L4 on L5. Mild levoscoliosis with degenerative disc disease. Reading Location: [id number] CC: Dr. Carl Bourgeois, DO ~ Manufacturing Baker: Signed [facility] 09-19-2024 Evaluation note Diagnosis Onset Date Resolution Fatigue chronic September 19 1:10pm Diverticulosis acute September 9:55am Personal history of colonic polyps acute September 27, 2024 9:55am Chronic constipation chronic 2024 9:55am Fatigue chronic October 19 1:31pm Fatigue chronic November 20, 2024 12:59pm Obesity chronic November 21, 2024 11:01am MARTHA (obstructive sleep apnea) chronic November 21, 2024 11:01am Abnormality of gait and mobility acute November 28, 2024 10:24am Fibromyalgia acute November 28 10:24am Left hip pain acute November 28, 10:24am Migraine headache acute November 10:24am Anxiety chronic November 28, 2024 10:24am Fatigue chronic November 28, 2024 10:24am [facility] Work Phone: 1(829) 628-850501-13-2025 Evaluation note* Diagnosis Onset Date Resolution Status Admit Date Abnormality of gait and mobility acute July 31 10:27am Fibromyalgia acute July 10:27am Fusion of lumbar spine acute [facility]2024 10:27am Left hip pain acute July 10:27am Anxiety chronic July 31, 2024 10:27am Fatigue chronic July 31, 2024 10:27am Mild cognitive impairment chronic July 31, 2024 10:27am Fatigue chronic September 19 1:10pm Diverticulosis acute September 9:55am Personal history of colonic polyps acute September 27, 2024 9:55am Chronic constipation chronic Josh h 2024 9:55am Fatigue chronic October 19 1:31pm Fatigue chronic November 20, 2024 12:59pm Obesity chronic November 21, 2024 11:01am MARTHA (obstructive sleep apnea) chroni c November 21, 2024 11:01am Abnormality of gait and mobility acute November 28, 2024 1 0:24am Fibromyalgia acute November 28 10:24am Fusion of lumbar spine acute Ma y 2024 10:24am Left hip pain acute November 28, 2 025 10:24am Anxiety chronic November 28, 2024 10:24am Fatigue chronic November 28, 2024 10:24am Mild cognitive impairment chronic November 28, 2024 10:24am [facility] Work Phone: 1(250) 241-241401-09-2025 Evaluation note* Diagnosis Onset Date Resolution Status Admit Date Personal history of colonic polyps acute July 27 7:33am Abnormality of gait and mobility acute July 31 10:27am Fibromyalgia acute July 10:27am Fusion of lumbar spine acute nuary 2024 10:27am Left hip pain acute July 10:27am Anxiety chronic July 31, 2024 10:27am Fatigue chronic July 31, 2024 10:27am Mild cognitive impairment chronic July 31, 2024 10:27am Fatigue chronic September 19 1:10pm Diverticulosis acute September 9:55am Personal history of colonic polyps acute September 27, 2024 9:55am Chronic constipation chronic Josh h 2024 9:55am Fatigue chronic October 19 1:31pm Fatigue chronic November 20, 2024 12:59pm Obesity chronic November 21, 2024 11:01am MARTHA (obstructive sleep apnea) chroni c November 21, 2024 11:01am [facility] Work Phone: 1(588) 329-665601-09-2025 [facility]12-09-2024 Evaluation note* Diagnosis Onset Date Resolution Status Admit Date Fatigue chronic June 26, 2024 12:53pm Personal history of colonic polyps acute July 27 7:33am Abnormality of gait and mobility acute July 31 10:27am Fibromyalgia acute July 10:27am Fusion of lumbar spine acute Ja nuary 2024 10:27am Left hip pain acute July 10:27am Anxiety chronic July 31, 2024 10:27am Fatigue chronic July 31, 2024 10:27am Mild cognitive impairment chronic July 31, 2024 10:27am Fatigue chronic September 19 1:10pm Diverticulosis acute September 9:55am Personal history of colonic polyps acute September 27, 2024 9:55am Chronic constipation chronic 2024 9:55am [facility] Work Phone: 1(204) 931-493304-18-2024 Discharge summary Author Jeff Dubose [facility] November 04, 2023 10:16am Note Date/Time November 04, 2023 10: 15am [facility] Physical Therapy [facility] [address] [place] [address]. [address] [place] [address] / REHABILITATION SERVICES DISCHARGE SUMMARY MR#: [id number] Acct: [id number] Name: YADIRA PEREZ Rep #: [id number] : 1950 73 From: Cert. MANSI VásquezT, OCS Referring Dr.: Dr. Neftaly Horan DO Status: REG RCR Insurance: MEDICARE PART A B MEDICARE SUPPLEMENT PLAN Discharge Summary D/C summary: It has been my pleasure to treat YADIRA PEREZ referred by Dr. Neftaly Horan DO, with the diagnosis of SPONDYLOLISTHESIS LUMBAR REGION for a total of40 visit(s). Discharge Date: 11/04/23 Please see the following information for a summary of their discharge status. Subjective Subjective: Doing okay plan to do ex's at home Uses cane in home ,rollator Dizziness conts to be problem ..sees Chiropractor for dizziness Discussed with patient to see DR for dizzienss Pain Bilateral Back: Pain Intensity (Out of 10): 3 Overall Improvement % Improvement: 40 Objective Objective/Function: POSTURE: mild forward posture GAIT : Ambulated with CGA/SBA with cane 100 ft x2 2 point gait slow ronel (short distances no device slow unsteady decrease step length without rollator) INSCION : intact NEURO: denies paresthesia/tingling ,reflexes L3-4,L4-5 ,L5-S1 1/3,denies paresthesia/tingling MMT:( peak force) quads R 44.6 ,L 30.8 ,hams R 33.3 ,L 32,.9 ,hip flexion R 44.6 ,L 34.9 ,ankle 4/5 LUMBAR ROM: flexion mod loss , extension mod/severe loss ,side glide mod loss FLEXABLITY : hamstrings mod Goals Goal 1:: Patient to be I with HEP for back Goal Progress: Goal Met Goal 2:: Patient to demonstrate 60% to improve function and ADL Goal Progress: Goal Met Goal 3:: Patient to improve lumbar ROM for function of recovery to put on shoes . Goal Progress: Goal Met Goal 4:: Patient to improve strength BLE peak force by 5-10 # to improve function with gait Goal Progress: Goal Met Goal 5:: Patient to ambulate with no devic in Home ambulation distances with improved gait pattern. Goal Progress: Goal Met Goal 6:: Patient to improve back oswestry by 5 points to improve QOL and function Goal Progress: Goal Met Plan Plan: d/c hep D/C Information Discharge Comments: HEP d/c sentence: If there are questions or concerns regarding this patient's physical therapy, please feel free to call me at [phone]. Thank you for the referral of thispatient. Sincerely, Jeff Dubose, PT, Cert MDT, OCS Balance/Gait/Functional tests Balance/Special Test Scores Oswestry Low Back Score: 20 Improvement % Improvement: 40 <Electronically signed by Jeff Dubose PT, Cert. T, OCS> 11/04/23 1016 CC: Dr. Carl Bourgeois, ; Dr. Neftaly Horan, DO ~ DVAIDE Signed [facility] Work Phone: 1(229) 303-315804-18-2024 Discharge summary Author Jeff Dubose [facility] November 04, 2023 10:16am Note Date/Time November 04, 2023 10: 15am [facility] Physical Therapy Health[address] [place] [address] / REHABILITATION SERVICES DISCHARGE SUMMARY MR#: [id number] Acct: [id number] Name: YADIRA PEREZ Rep #: [id number] : 1950 73 From: Cert. ANGELINA Vásquez, OCS Referring Dr.: Dr. Neftaly Horan DO Status: REG RCR Insurance: MEDICARE PART A B MEDICARE SUPPLEMENT PLAN Discharge Summary D/C summary: It has been my pleasure to treat YADIRA PEREZ referred by Dr. Neftaly Horan DO, with the diagnosis of SPONDYLOLISTHESIS LUMBAR REGION for a total of40 visit(s). Discharge Date: 11/04/23 Please see the following information for a summary of their discharge status. Subjective Subjective: Doing okay plan to do ex's at home Uses cane in home ,rollator Dizziness conts to be problem ..sees Chiropractor for dizziness Discussed with patient to see DR for dizzienss Pain Bilateral Back: Pain Intensity (Out of 10): 3 Overall Improvement % Improvement: 40 Objective Objective/Function: POSTURE: mild forward posture GAIT : Ambulated with CGA/SBA with cane 100 ft x2 2 point gait slow ronel (short distances no device slow unsteady decrease step length without rollator) INSCION : intact NEURO: denies paresthesia/tingling ,reflexes L3-4,L4-5 ,L5-S1 1/3,denies paresthesia/tingling MMT:( peak force) quads R 44.6 ,L 30.8 ,hams R 33.3 ,L 32,.9 ,hip flexion R 44.6 ,L 34.9 ,ankle 4/5 LUMBAR ROM: flexion mod loss , extension mod/severe loss ,side glide mod loss FLEXABLITY : hamstrings mod Goals Goal 1:: Patient to be I with HEP for back Goal Progress: Goal Met Goal 2:: Patient to demonstrate 60% to improve function and ADL Goal Progress: Goal Met Goal 3:: Patient to improve lumbar ROM for function of recovery to put on shoes . Goal Progress: Goal Met Goal 4:: Patient to improve strength BLE peak force by 5-10 # to improve function with gait Goal Progress: Goal Met Goal 5:: Patient to ambulate with no devic in Home ambulation distances with improved gait pattern. Goal Progress: Goal Met Goal 6:: Patient to improve back oswestry by 5 points to improve QOL and function Goal Progress: Goal Met Plan Plan: d/c hep D/C Information Discharge Comments: HEP d/c sentence: If there are questions or concerns regarding this patient's physical therapy, please feel free to call me at [phone]. Thank you for the referral of thispatient. Sincerely, Jeff Dubose, PT, Cert MDT, OCS Balance/Gait/Functional tests Balance/Special Test Scores Oswestry Low Back Score: 20 Improvement % Improvement: 40 <Electronically signed by Jeff Dubose PT, Cert. MDT, OCS> 11/04/23 1016 CC: Dr. Carl Bourgeois DO; Dr. Neftaly Horan DO ~ JLA Signed [facility] Work Phone: 1(379) 100-557508-22-2023 Discharge summary Author Mariluz Cisneros [facility] March 10, 2023 1:03pm Note Date/Time March 09, 2023 1: 39pm [facility] Medical Records Department [address] [place] [id number] Discharge Summary 03/09/23 1330 MR#: [id number] Acct: [id number] Name: YADIRA PEREZ Rep #:[id number] : 1950 72 From: Mariluz Cisneros DO PCP: Dr. Carl Bourgeois DO Status:ADM IN Location: [place] [address] Providers Date of Admission: 02/24/23 Date of Discharge: 03/10/23 Primary Care Physician: Dr. Carl Bourgeois DO Reason For Visit: DEBILITY Diagnosis Discharge Diagnosis (1) Lumbar canal stenosis: Status: Acute Code(s): M48.061 - Spinal stenosis, lumbar region without neurogenic claudication Qualifiers: Neurogenic claudication status: with neurogenic claudication Qualified Code(s): M48.062 - Spinal stenosis, lumbar region with neurogenic claudication (2) Facet arthritis of lumbosacral region: Status: Acute Code(s): M47.817 - Spondylosis without myelopathy or radiculopathy, lumbosacral region (3) Bilateral leg weakness: Status: Inactive Code(s): R29.898 - Other symptoms and signs involving the musculoskeletal system (4) Status post lumbar spine surgery for decompression of spinal cord: Status: Acute Code(s): Z98.890 - Other specified postprocedural states Plan: 02/17/[address] Neftaly Horan from the [facility]. (5) Inflammatory polyarthropathy: Status: Acute Code(s): M06.4 - Inflammatory polyarthropathy Plan: Follows up with Dr. Tejeda (6) Osteoarthritis: Status: Chronic Code(s): M19.90 - Unspecified osteoarthritis, unspecified site Qualifiers: Osteoarthritis location: multiple joints Osteoarthritis type: primary Qualified Code(s): M15.9 - Polyosteoarthritis, unspecified (7) Multifactorial gait disorder: Status: Chronic Code(s): R26.89 - Other abnormalities of gait and mobility (8) Anisocoria: Status: Acute Code(s): H57.02 - Anisocoria Plan: Long standing (9) Fatigue: Status: Chronic Code(s): R53.83 - Other fatigue Qualifiers: Fatigue type: chronic, unspecified Qualified Code(s): R53.82 - Chronic fatigue, unspecified Plan: Chronic. suspect related to polypharmacy. (10) Dysarthria: Status: Acute Code(s): R47.1 - Dysarthria and anarthria Plan: This is intermittent and sometimes is associated with R side weakness and facialdroop. I suspect this is due to poor cerebral perfusion due to IV volume depletion/orthostasis. Has presented to the ED several times with slurred speechand W/U is always negative. Resolves with better hydration. HCTZ was discontinued. (11) Peripheral vestibulopathy: Status: Chronic Code(s): H81.90 - Unspecified disorder of vestibular function, unspecified ear Qualifiers: Laterality: unspecified laterality Qualified Code(s): H81.90 - Unspecified disorder of vestibular function, unspecified ear (12) Mild cognitive impairment: Status: Chronic Code(s): G31.84 - Mild cognitive impairment of uncertain or unknown etiology Plan: Memory loss. Short attention span. Poor safety awareness at times. (13) Hypersomnolence: Status: Acute Code(s): G47.10 - Hypersomnia, unspecified Plan: Sleep study has been ordered and she will follow up with [facility]. Plan 1. Discharge home on 03/10/2023 with [facility] home health services for continued PT/OT. 2. Follow-up with Dr. Carl Bourgeois and Dr. Frank Horan post discharge 3. Prescriptions were faxed to [facility] on [address] 4. DME at discharge includes a front wheeled walker 5. Sleep study the end of March, study and then follow up with pulmonary. Medications at Discharge Home Medications ibandronate 150 mg tablet 150 mg PO Q30D [facility] 11/26/15 calcium carbonate 500 mg-vitamin D3 10 mcg (400 unit) tablet 1 tab PO TID SUPPLEMENT 04/07/22 folic acid 1 mg tablet 1 mg PO DAILY SUPPLEMENT 04/07/22 hydroxychloroquine 200 mg tablet (Plaquenil) 200 mg PO BID RHEUMATOID ARTHRITIS 04/07/22 methotrexate sodium 2.5 mg tablet 15 mg PO ARIAS RHEUMATOID ARTHRITIS 04/07/22 potassium chloride 10 mEq tablet,extended release(part/cryst) 10 meq PO BID SUPPLEMENT 04/07/22 aspirin 81 mg tablet,delayed release (Adult Low Dose Aspirin) 81 mg PO DAILY [facility] 10/08/22 duloxetine 60 mg capsule,delayed release 60 mg PO BID DEPRESSION 10/08/22 ferrous sulfate 325 mg (65 mg iron) tablet 325 mg PO DAILY SUPPLEMENT 10/08/22 propranolol 10 mg tablet 10 mg PO BID HTN #60 tabs 11/09/22 cyanocobalamin (vitamin B-12) 1,000 mcg/mL injection solution (Dodex) 1,000 mcg subcut QMONTH supplement 02/22/23 acetaminophen 500 mg tablet 1,000 mg (2 x 500 mg) PO Q6H PRN pain, mild #1 TAB 03/09/23 baclofen 10 mg tablet 5 mg (1/2 x 10 mg) PO QHS #30 tabs 03/09/23 buspirone 5 mg tablet 5 mg PO BID #60 tabs 03/09/23 gabapentin 100 mg capsule See Rx Instructions .Route .COMPLEX #120 caps 03/09/23 meclizine 12.5 mg tablet 12.5 mg PO 4X/DAY PRN PRN Vertigo #30 tabs 03/09/23 tramadol 50 mg tablet 50 - 100 mg (1 - 2 x 50 mg) PO Q6H PRN PRN Pain Score 3- 10#50 tabs 03/09/23 Hospital Course Operations - (Lumbar laminectomy and fusion by Dr. Frank Horan on 02/17/2023. ) Procedures None Summary of Care Provided Minutes Spent on Discharge: 40 Hospital Course: YADIRA PEREZ, is a 72 F with a PMH of anxiety/depression, fibromyalgia,hypertension, peripheral neuropathy, osteoporosis, prior stroke, mild cognitive impairment and benign positional vertigo who had a bilateral posterior microdecompression of L3-L4, L4-L5 and local graft, allograft for L4-5 fusion on02/17/[address] Frank Horan. She went home on 02/19/23 but, on 02/21/23 she became extremely weak and started having muscle spasms and pain to the BL anterior thighs. She was seen at [facility] ED. She tells me that she did not know she was supposed to get up and move every hour while awake and she thinks this may be what caused the decline. She had no difficulties with bowel or bladder. Labs showed a normal white blood cell count and she was afebrile. Hemoglobin was 10.9 with an MCV of 102.1. Platelets were normal. Differential was unremarkable. ESR and CRP were elevated however this is expected in the postoperative patient. A UA had [address] was unremarkable. CT scan of the lumbar spine showed recent surgical changes with partial resection of the posterior elements from L3-L5 with posterior pedicle screws and interbodyrods at L4/5. There was postop fluid and air at the location of the posterior element resection but there was also a lot of streak artifact related to surgical hardware. She was admitted to the [facility] on 02/22/23. Additional W/U was unremarkable and acute rehab was recommended for strengthening. She was transferred to the acute inpt rehab unit at [facility] on 02/24/23 for 3 hours of therapy daily to restore function/independence at or near her level prior to the surgery. Yadira c/o chronic fatigue and daytime drowsiness at admission. She also tells me that she has trouble with her memory. She received a letter from the hospital after an admission that said she had O2 desaturation at night and recommended she talk with her PCP about a sleep study. A overnight trending pulse ox was abnormal while she was in rehab. She snores and she has hypersomnolence during the day along with poor memory. A split sleep study was ordered and will be scheduled for the end of March. She will follow up witheither Dr. Morgan or Dr. Shi to review the results. I also feel some of her medications were contributing to drowsiness/fatigue. We tapered the Buspar downto 5 mg BID and she is more alert during the day and not napping as much. I also discontinued HCTZ because she is chronically dehydrated and was not drinking enough water. She is less fatigued since she is better hydrated and inbetter physical shape. I do not think she has Meniere's disease. She denies tinnitus and hearing loss. She may not even have BPPV. She is generally dizzy/vertigo in the AM when first getting out of bed. The symptoms are shortlived and generally last < 10 minutes. She takes Meclizine and thinks this helps but, the sx resolve in 10 minutes........before the Meclizine has a chanceto be absorbed in the stomach. I instructed her to drink at least 1600 cc's of non-caffeinated fluids a day and to sit at the EOB for a few minutes before standing in the morning and then when she stands she will stand for a few minutes before ambulating. I suspect her sx are due to orthostasis. She is muchbetter since she is hydrated. When she first arrived on rehab she was having short periods of slurred speech, facial droop and R side weakness. Since she has been hydrated she no longer has any of these symptoms. She has been seen in the ED in the past for slurred speech and R side weakness and W/U's have been negative. I suspect she has intermittent neurologic deficits due to dehydration with decreased cerebral blood flow to an area previously affected by and ischemic stroke. She has had no sx for several days prior to DC. HGB is stable at 9.5 at DC, sodium is normal and the creatinine is 0.84. Vitamin D level is normal at 73.1. Yadira did well in therapy. She has some difficulty remembering her back precautions. At the time of DC she is independent with eating. She is standby assist for grooming and toileting. Sheis contact-guard assist for toilet transfer and bathing. She is supervision/setup for upper body dressing and requires minimal assistance with lower body dressing and tub/shower transfer. Her and dtr are aware that at least for the first 2 weeks after DC she will need close supervision 08/02. She has ambulated up to 510 feet with a front wheeled walker at close standby assist/contact-guard assist. She can be easily distracted. She is able to do 8sit to stands at standby assist/contact-guard assist in 30 seconds. She can ascend/descend two 6 inch steps with 1 handrail at contact-guard assist with voice cueing for sequencing. Yadira was discharged on 03/10/2023 with family for close supervision. Nishant have [facility] for PT/OT. She has follow up appts scheduled with Dr. Bourgeois and with Dr. Neftaly Horan. The sleep lab will call her to schedule a sleep study for the end of March and will also schedule an appt to follow upwith pulmonary to discuss the results of the sleep study. Physical Exam Const alert and no apparent distress General Appearance: cooperative HEENT moist oral mucous membranes Resp normal respiratory effort, normal air movement and clear to auscultation bilaterally Resp Narrative: No conversational dyspnea, able to speak in complete sentences. Effort and Inspection: Negative for tachypneic or labored Cardio regular rate, regular rhythm, S1 normal heart sound and S2 normal heart sound Cardio Narrative: She has a soft 1-2/6 systolic murmur at the second right intercostal space whichmay be related to anemia. She has no ectopy. GI normal to inspection, nondistended, normoactive bowel sounds, soft to palpation and non-tender GI Narrative: No guarding with palpation. No masses and no HS. Extremity no calf tenderness General Extremity: Negative for edema Skin General Skin Exam: no breakdown Rashes: no rashes Wound Narrative: The lumbar incision looks beautiful with no dehiscence, erythema or discharge. It is healing well. Neuro CN's II-XII intact bilaterally and no focal motor deficits Speech: speech normal Psych affect normal Appearance: appropriate Activity / Motor Behavior: Negative for restless Mood & Affect: Negative for depressed or anxious Thought Content: No delusion(s) and No hallucination(s) Weight / BMI Weight Weight: 207 lb 14.334 oz Body Mass Index (BMI) 33.4 ABG / Lab / Microbiology Data 03/04/23 05:46 03/04/23 05:46 Microbiology: Microbiology 03/01/23 20:04 Stool Stool Occult Blood (CESAR) - Final D/C Instructions Discharge Diet: Low fat / Low cholesterol Weight Bearing Status: Full weight bearing Keep extremity elevated above heart level: Legs Additional Activity Instructions: 1. No bending at the waist 2. No lifting more than 5 lbs 3. No twisting Call your doctor if your incision/area has: Continuous Slow Oozing, Increased Pain/ Swelling, Increased Redness, Foul Smelling Discharge and Swelling at the incision site Call your doctor if you observe: Fever of 101 or Higher, Inability to urinate, Inability to have a bowel movement, Shortness of breath, Fainting spells, Chest pain, Increased palpitations (irregular heartbeat), Calf discomfort, Uncontrolled pain and - (STROKE symptoms: facial droop, slurred speech, inability to get words out, weakness on 1 side of the body and not the other, numbness on 1 side of the body and not the other, inability to maintain your balance sitting or standing, vertigo. ) Suture Line Care: Avoid Pulling/Pushing and Avoid Pinching/Bending Cleanse incision/area with: Soap & Water Pending Tests Upon Discharge: none Please Follow Up With: Carl Bourgeois, DO When: You will also need to follow up with Dr. Frank Horan. Meaningful Use Info Meaningful Use Diagnoses (Choose all that apply): None applicable Discharge Plan Admission Admit Date/Time: 02/24/23 12:26 Primary Reason for Your Visit: Debility due to lumbar laminectomy and fusion. Attending Provider: Mariluz Cisneros Primary Care Provider: Carl Bourgeois Instructions Patient Instructions: Caring for Your Incision, Orthostatic Hypotension Additional Instructions / Restrictions: 1. NO BENDING, NO TWISTING AND NO LIFTING MORE THAN 5 LBS. 2. At least for the first 2 weeks you are home you will need close supervision. This means you need help to walk to the bathroom and help with bathing and helpremembering your spinal precautions. 3. Have Riki check the incision at least once a day and if there is any increasing redness around the incision, increased swelling or discharge from theincision call Dr. Horan or Dr. Bourgeois. 4. When you are on your trip to the [employer] make sure to stop at least once every hour and get out and walk for 5 minutes or so to prevent stiffness and increased pain. This will also help to prevent blood clots in your legs. 5. If you have calf pain, swelling of one leg and not the other, chest pain, shortness of breath while on your trip go to an ER and get evaluated for a bloodclot. Pain in the calf, redness of the calf, swelling of the leg, chest pain and shortness of breath are all symptoms of blood clots. 6. You do NOT have lupus and your tests for rheumatoid arthritis are negative. Your diagnosis is inflammatory polyarthropathy. Plaquenil (hydroxychloroquine) is used to treat inflammatory polyarthritis. You may not need Methotrexate so please discuss this with Dr. Tejeda. 7. You are forgetful and have a hard time paying attention and following instructions. Some of your medications contribute to this and we are weaning the doses down. Duloxetine(also called Cymbalta) treats both anxiety and depression. We have the buspirone down to 5 mg twice a day from 15 mg twice a day. Buspirone only treats anxiety and only works if taken twice a day rather than just as needed. You may be able to discontinue this medication. 8. I discontinued hydrochlorothiazide, which is a diuretic, because you do not drink enough water a day and this leads to dehydration. When you get dehydratedyou develop some stroke symptoms such as right-sided weakness, slurred speech and a facial droop. When you are well-hydrated you do not have the symptoms. Optimally you should be drinking 1-1/2 to 2 L of fluid a day. 9. I do not think the Meclizine is really helping with the vertigo. Vertigo is a spinning sensation not just lightheadedness. Meclizine would take at [id number] minutes to be absorbed from your stomach and your symptoms are gone in just 10 minutes. I think that the symptoms you have in the morning when first getting out of bed are due to orthostasis. I gave you some literature to ready about this. As we get older and devan if we are taking diuretics, antidepressants, antianxiety medications, antihypertensives, etc the blood pressure tends to drop temporarily with changes in position. When your first sit up in the morning sit at the edge of the bed for a few minutes before standing. When you stand do not start walking for a few minutes, just stand nextto the bed. This allows the BP to equilibrate and prevents the dizziness. Alsoyou have to drink enough fluid to keep well hydrated.......your urine should be a pale yellow if you are drinking enough water. 10. Meclizine, Duloxetine and buspirone can all make you feel fatigued and lightheaded. I think you would feel less fatigued and more alert if you were taking less medication. Your memory may improve also. Gabapentin can also makeyou fatigued and throw off your balance. You should only take this medication for another month.......by the the swelling from the surgery will have improved and you should not be having pain from nerve compression. 11. If you have any questions after you leave rehab please do not hesitate to call me. OFFICE: [phone] CELL: [phone] Have fun on your trip Discharge Orders/Prescriptions Prescriptions: New tramadol 50 mg Tablet 50 - 100 mg PO Q6H PRN PRN (Reason: Pain Score 3-10) Qty: 50 0RF buspirone 5 mg Tablet 5 mg PO BID Qty: 60 0RF acetaminophen 500 mg Tablet 1,000 mg PO Q6H PRN (Reason: pain, mild) Qty: 1 0RF baclofen 10 mg Tablet 5 mg PO QHS Qty: 30 0RF Rx Instructions: 1 and 1/2 tabs at bedtime for muscle relaxation gabapentin 100 mg Capsule See Rx Instructions .ROUTE .COMPLEX Qty: 120 0RF Rx Instructions: 1 capsule twice a day and 2 capsules 1 hr before bed. meclizine 12.5 mg Tablet 12.5 mg PO 4X/DAY PRN PRN (Reason: Vertigo) Qty: 30 0RF Rx Instructions: take only for vertigo (room spinning) Continued folic acid 1 mg tablet 1 mg PO DAILY methotrexate sodium 2.5 mg tablet 15 mg PO ARIAS hydroxychloroquine [Plaquenil] 200 mg tablet 200 mg PO BID calcium carbonate-vitamin D3 500 mg-10 mcg (400 unit) tablet 1 tab PO TID potassium chloride 10 mEq tablet,ER particles/crystals 10 meq PO BID propranolol 10 mg tablet 10 mg PO BID Qty: 60 5RF ibandronate 150 MG tablet 150 mg PO Q30D Hold Instructions: Ordered ferrous sulfate 325 mg (65 mg iron) Tablet 325 mg PO DAILY duloxetine 60 mg capsule,delayed release(DR/EC) 60 mg PO BID aspirin [Adult Low Dose Aspirin] 81 mg tablet,delayed release (DR/EC) 81 mg PO DAILY cyanocobalamin (vitamin B-12) [Dodex] 1,000 mcg/mL solution 1,000 mcg subcut QMONTH Discontinued hydrochlorothiazide 25 MG tablet 25 mg PO DAILY meclizine 12.5 mg tablet 12.5 mg PO DAILY PRN (Reason: DIZZINESS ) albuterol sulfate 90 mcg/actuation HFA aerosol inhaler 2 inh inhalation Q6H PRN (Reason: shortness of breath or wheezing) Qty: 8.5 0RF buspirone 10 mg tablet 15 mg PO BID Referrals / Follow Up: Frank Horan [Other] - 03/16/23 10:00 am Carl Bourgeois DO [Primary Care Provider] - 03/12/23 12:50 pm Disposition Disposition (needs filled in before D/C Order can be placed): Home Health Service Charges/Coding Visit Charges Inpatient E&M: 19072 Disch Hosp >30min 03/10/23 1303 <Electronically signed by Mariluz Cisneors DO> Cosigner Signature (if applicable): CC: Dr. Carl Bourgeois DO; Dr. Mariluz Cisneros DO; Dr. Neftaly Horan DO~ Signed [facility] Work Phone: 1(558) 167-963508-22-2023 Progress note Author Mariluz Cisneros [facility] [facility] March 09, 2023 12:42pm Note Date/Time March 08, 2023 11 :36am [facility] Medical Records Department [address] [place] [id number] Progress Note 03/08/23 1134 MR#: [id number] Acct: [id number] Name: YADIRA PEREZ Rep #:[id number] 21 : 1950 72 From: aMriluz Cisneros DO PCP: Dr. Carl Bourgeois DO Status:ADM IN Location: [place] [address] Subjective Subjective Leila was seen on team rounds today. Her and daughter were present inthe room for rounds. Afebrile VSS-systolics are always mildly elevated. Since she has had a stroke in the past the goal for her blood pressure is less than 130/80. Maintaining appropriate oxygen saturation on RA Oral intake is good Discussed with nursing - no problems that need addressed Reviewed the PT/OT notes - therapists are recommending close supervision at home for the first few weeks. She is doing better this week than last. She no longer has weakness on the R side and she has no slurred speech. Fluid intake is significantly increased. When she gets vertigo it is usually in the AM and it goes away within 10 minutes of taking a Meclizine? I suspect it is not the Meclizine that makes the vertigo go away if it is truly only 10 minutes. She cut her TUG time in half this week when compared to last. Medication list reviewed. Leila denies cephalgia, lightheadedness, cough, shortness of breath, chest pain, palpitations, nausea/vomiting/abdominal pain, calf tenderness and dysuria. Objective Data Objective Data Vital Signs: Vital Signs Temp Pulse Resp BP Pulse Ox O2 Del Method O2 Flow Rate 96.9 F L 69 17 141/64 H 100 Room Air 0 03/08/23 07:45 03/08/23 07:45 03/08/23 07:45 03/08/23 07:45 03/08/23 07:45 03/08/23 07:45 02/25/23 21:46 FiO2 21 02/25/23 21:46 Oxygen Flow Rate (L/min) 0 Oxygen Delivery Method Room Air Weight: 207 lb 14.334 oz Body Mass Index (BMI) 33.4 Intake & Output: Intake and Output for Last 24 Hours 03/06/23 03/07/23 03/08/23 23:59 23:59 23:59 Intake Total 250 / 250 200 / 200 Output Total 200 / 200 325 / 325 Balance 50 / 50 -125 / -125 Lab / Micro Data 03/04/23 05:46 03/04/23 05:46 Micro: Microbiology 03/01/23 20:04 Stool Stool Occult Blood (CESAR) - Final Physical Exam Const alert and no apparent distress General Appearance: cooperative HEENT moist oral mucous membranes Neck supple Resp normal respiratory effort, no use of accessory muscles and clear to auscultationbilaterally Effort and Inspection: Negative for tachypneic or labored Cardio regular rate, regular rhythm and no gallops GI normal to inspection, nondistended, normoactive bowel sounds, non-tender and non-distended GI Narrative: no guarding with palpation Extremity Negative for no calf tenderness General Extremity: Negative for edema Skin General Skin Exam: no breakdown Rashes: no rashes Wound Narrative: The lumbar incision is intact with no tiesha-incisional erythema, no significant swelling around the incision and no purulent discharge. Psych affect normal Assessment & Plan Assessment/Plan (1) Anisocoria: (2) Bilateral leg weakness: (3) Status post lumbar spine surgery for decompression of spinal cord: (4) Macrocytic anemia: (5) Fatigue: QUALIFIERS: Fatigue type: chronic, unspecified Qualified Code(s):R53.82 - Chronic fatigue, unspecified (6) Vertigo: (7) Dysarthria: PLAN: Plan 1. Continue therapy 2. Scheduled meclizine 12.5 mg every morning at 7:00. 3. Continue to encourage at least 1500 cc of fluid daily 4. Plan discharge on Wednesday with home health for PT/OT 5. Therapists recommending close supervision at home for at least the first 2 weeks Charges/Coding Visit Charges Inpatient E&M: 08879 Subs Hosp L2 03/08/23 1425 <Electronically signed by Mariluz Cisneros DO> Mariluz Cisneros DO Cosigner Signature (if applicable): CC: ~ Signed ADDENDUM by Dr. Mariluz Cisneros DO on 03/09/23 at 1242 Addendum STOP BANG score is 3 for age, snoring and feeling tired during the day and not rested when she gets up in the AM. She has an abnormal overnight trending pulseox. She has had a stroke in the past. She was sent a letter from the hospital after an admission recommending she get a sleep study due to hypoxia on RA whilean inpt. She has a poor memory. 03/09/23 1242 <Electronically signed by Mariluz preciado DO> Date _ Mariluz Cisneros DO Cosigner Signature (if applicable): Date cc: ~* Signed [facility] Work Phone: 1(976) 210-491408-22-2023 Discharge summary Author Mariluz Cisneros [facility] March 09, 2023 12:39pm Note Date/Time March 09, 2023 10 :43am [facility] Medical Records Department [address] [place] [address] Instructions for Home/Discharge Instructions 03/09/23 1039 MR#: [id number] Acct: [id number] Name: YADIRA PEREZ Rep #:[id number] : 1950 72 From: Mariluz Cisneros DO PCP: Dr. Carl Bourgeois DO Status:ADM IN Discharge Instructions Diet Discharge Diet: Low fat / Low cholesterol Activity Discharge Activity: May Not Drive, May Shower and Use Walker Weight Bearing Status: Full weight bearing Keep extremity elevated above heart level: Legs Additional Activity Instructions:: 1. No bending at the waist 2. No lifting more than 5 lbs 3. No twisting Dressing / Incision Call your doctor if your incision/area has: Continuous Slow Oozing, Increased Pain/ Swelling, Increased Redness, Foul Smelling Discharge and Swelling at the incision site Call your doctor if you observe: Fever of 101 or Higher, Inability to urinate, Inability to have a bowel movement, Shortness of breath, Fainting spells, Chest pain, Increased palpitations (irregular heartbeat), Calf discomfort, Uncontrolled pain and - (STROKE symptoms: facial droop, slurred speech, inability to get words out, weakness on 1 side of the body and not the other, numbness on 1 side of the body and not the other, inability to maintain your balance sitting or standing, vertigo. ) Suture Line Care: Avoid Pulling/Pushing and Avoid Pinching/Bending Change Dressing in: leave in place till F/U (no dressing necessary) Cleanse incision/area with: Soap & Water Follow Up Care Please Follow Up With: Carl Bourgeois DO When: You will also need to follow up with Dr. Frank Horan. Test Results: Test results from this visit will be discussed in further detail at your follow- up appointment, if applicable. Pending Tests Upon Discharge: none Discharge Plan Admission Admit Date/Time: 02/24/23 12:26 Primary Reason for Your Visit: Debility due to lumbar laminectomy and fusion. Attending Provider: Mariluz Cisneros Primary Care Provider: Carl Bourgeois Instructions Patient Instructions: Caring for Your Incision, Orthostatic Hypotension Additional Instructions / Restrictions: 1. NO BENDING, NO TWISTING AND NO LIFTING MORE THAN 5 LBS. 2. At least for the first 2 weeks you are home you will need close supervision. This means you need help to walk to the bathroom and help with bathing and helpremembering your spinal precautions. 3. Have Riki check the incision at least once a day and if there is any increasing redness around the incision, increased swelling or discharge from theincision call Dr. Horan or Dr. Bourgeois. 4. When you are on your trip to the [facility] make sure to stop at least once every hour and get out and walk for 5 minutes or so to prevent stiffness and increased pain. This will also help to prevent blood clots in your legs. 5. If you have calf pain, swelling of one leg and not the other, chest pain, shortness of breath while on your trip go to an ER and get evaluated for a bloodclot. Pain in the calf, redness of the calf, swelling of the leg, chest pain and shortness of breath are all symptoms of blood clots. 6. You do NOT have lupus and your tests for rheumatoid arthritis are negative. Your diagnosis is inflammatory polyarthropathy. Plaquenil (hydroxychloroquine) is used to treat inflammatory polyarthritis. You may not need Methotrexate so please discuss this with Dr. Tejeda. 7. You are forgetful and have a hard time paying attention and following instructions. Some of your medications contribute to this and we are weaning the doses down. Duloxetine(also called Cymbalta) treats both anxiety and depression. We have the buspirone down to 5 mg twice a day from 15 mg twice a day. Buspirone only treats anxiety and only works if taken twice a day rather than just as needed. You may be able to discontinue this medication. 8. I discontinued hydrochlorothiazide, which is a diuretic, because you do not drink enough water a day and this leads to dehydration. When you get dehydratedyou develop some stroke symptoms such as right-sided weakness, slurred speech and a facial droop. When you are well-hydrated you do not have the symptoms. Optimally you should be drinking 1-1/2 to 2 L of fluid a day. 9. I do not think the Meclizine is really helping with the vertigo. Vertigo is a spinning sensation not just lightheadedness. Meclizine would take at [id number] minutes to be absorbed from your stomach and your symptoms are gone in just 10 minutes. I think that the symptoms you have in the morning when first getting out of bed are due to orthostasis. I gave you some literature to ready about this. As we get older and devan if we are taking diuretics, antidepressants, antianxiety medications, antihypertensives, etc the blood pressure tends to drop temporarily with changes in position. When your first sit up in the morning sit at the edge of the bed for a few minutes before standing. When you stand do not start walking for a few minutes, just stand next to the bed. This allows the BP to equilibrate and prevents the dizziness. Also you have to drink enough fluid to keep well hydrated.......your urine should be a pale yellow if you are drinking enough water. 10. Meclizine, Duloxetine and buspirone can all make you feel fatigued and lightheaded. I think you would feel less fatigued and more alert if you were taking less medication. Your memory may improve also. Gabapentin can also makeyou fatigued and throw off your balance. You should only take this medication for another month.......by the the swelling from the surgery will have improved and you should not be having pain from nerve compression. 11. If you have any questions after you leave rehab please do not hesitate to call me. OFFICE: [phone] CELL: [phone] Have fun on your trip Discharge Orders/Prescriptions Prescriptions: New tramadol 50 mg Tablet 50 - 100 mg PO Q6H PRN PRN (Reason: Pain Score 3-10) Qty: 50 0RF buspirone 5 mg Tablet 5 mg PO BID Qty: 60 0RF acetaminophen 500 mg Tablet 1,000 mg PO Q6H PRN (Reason: pain, mild) Qty: 1 0RF baclofen 10 mg Tablet 5 mg PO QHS Qty: 30 0RF Rx Instructions: 1 and 1/2 tabs at bedtime for muscle relaxation gabapentin 100 mg Capsule See Rx Instructions .ROUTE .COMPLEX Qty: 120 0RF Rx Instructions: 1 capsule twice a day and 2 capsules 1 hr before bed. meclizine 12.5 mg Tablet 12.5 mg PO 4X/DAY PRN PRN (Reason: Vertigo) Qty: 30 0RF Rx Instructions: take only for vertigo (room spinning) Continued folic acid 1 mg tablet 1 mg PO DAILY methotrexate sodium 2.5 mg tablet 15 mg PO ARIAS hydroxychloroquine [Plaquenil] 200 mg tablet 200 mg PO BID calcium carbonate-vitamin D3 500 mg-10 mcg (400 unit) tablet 1 tab PO TID potassium chloride 10 mEq tablet,ER particles/crystals 10 meq PO BID propranolol 10 mg tablet 10 mg PO BID Qty: 60 5RF ibandronate 150 MG tablet 150 mg PO Q30D Hold Instructions: MD Ordered ferrous sulfate 325 mg (65 mg iron) Tablet 325 mg PO DAILY duloxetine 60 mg capsule,delayed release(DR/EC) 60 mg PO BID aspirin [Adult Low Dose Aspirin] 81 mg tablet,delayed release (DR/EC) 81 mg PO DAILY cyanocobalamin (vitamin B-12) [Dodex] 1,000 mcg/mL solution 1,000 mcg subcut QMONTH Discontinued hydrochlorothiazide 25 MG tablet 25 mg PO DAILY meclizine 12.5 mg tablet 12.5 mg PO DAILY PRN (Reason: DIZZINESS ) albuterol sulfate 90 mcg/actuation HFA aerosol inhaler 2 inh inhalation Q6H PRN (Reason: shortness of breath or wheezing) Qty: 8.5 0RF buspirone 10 mg tablet 15 mg PO BID Referrals / Follow Up: Carl Bourgeois DO [Primary Care Provider] - Disposition Disposition (needs filled in before D/C Order can be placed): Home Health Service 03/09/23 1239<Electronically signed by Mariluz Cisneros DO>Mariluz Cisneros DO CC: Dr. Carl Bourgeois DO; frank horan ~ Signed [facility] Work Phone: [phone]) 988-526908-18-2023 Progress note Author Mariluz Cisneros [facility] March 05, 2023 12:41pm Note Date/Time March 04, 2023 10 :13[facility] Medical Records Department [address] [place] [address] Progress Note 03/04/23 1013 MR#: [id number] Acct: [id number] Name: YADIRA PEREZ Rep #:[id number] : 1950 72 From: Mariluz Cisneros DO PCP: Dr. Carl Bourgeois, DO Status:ADM IN Location: [place] [address] Subjective Subjective Afebrile VSS Maintaining appropriate oxygen saturation on RA Oral intake is good Discussed with nursing - no problems that need addressed Reviewed the PT/OT/ST notes Medication list reviewed. All lab from this morning was personally reviewed. Hemoglobin is stable at 9.5. Sodium is 141 and the potassium is 4.1 today. The BUN is 23 (up from 11 on 02/21/2023. With a stable creatinine of 0.84. She was seen at the [facility] on September 16, 2021. She only visited1 time. They repeated an JEN and a double-stranded DNA but the results did not come in the paperwork they faxed. Patient stated she never got the results. Wewill resend a request for the results of those tests. JEN has been negative consistently. Titer using Crithidia assay was negative. RA negative and CCP negative. She may not need MTX. If she has a inflammatory polyarthropathy thenPlaquenil could be continued. She is sleeping well and has a good appetite. Pain is well controlled. She denies chest pain, shortness of breath, hemoptysis, cough, nausea/vomiting/abdominal pain, dysuria and calf pain. She feels as though she is getting stronger and is happy with her progress in therapy. Objective Data Objective Data Vital Signs: Vital Signs Temp Pulse Resp BP Pulse Ox O2 Del Method O2 Flow Rate 98.5 F 68 16 133/58 H 94 Room Air 0 03/04/23 08:52 03/04/23 08:52 03/04/23 08:52 03/04/23 08:52 03/04/23 08:52 03/04/23 08:52 02/25/23 21:46 FiO2 21 02/25/23 21:46 Oxygen Flow Rate (L/min) 0 Oxygen Delivery Method Room Air Weight: 208 lb 5.389 oz Body Mass Index (BMI) 33.6 Intake & Output: Intake and Output for Last 24 Hours 03/02/23 03/03/23 03/04/23 23:59 23:59 23:59 Intake Total 1440 / 1440 1220 / 1220 Balance 1440 / 1440 1220 / 1220 Lab / Micro Data 03/04/23 05:46 03/04/23 05:46 Labs: Laboratory Results - last 24 hr 03/04/23 05:46: Hgb 9.5 L, Hct 30.0 L, Sodium 141, Potassium 4.1, Chloride 107, Carbon Dioxide 30.0, Anion Gap 4 L, BUN 23 H, Creatinine 0.84, Estim Creat ClearCalc 56.67, Est GFR (MDRD) Af Amer 86, Est GFR (MDRD) Non-Af 71, BUN/Creatinine Ratio 27.4 H, Glucose 102, Calcium 8.9 Micro: Microbiology 03/01/23 20:04 Stool Stool Occult Blood (CESAR) - Final Physical Exam Const alert, oriented x3 and no apparent distress General Appearance: cooperative HEENT Mouth: dry mucous membranes Resp clear to auscultation bilaterally Cardio regular rate, regular rhythm and no gallops GI normal to inspection, nondistended, normoactive bowel sounds, soft to palpation and non-tender Extremity no calf tenderness Skin General Skin Exam: no breakdown Rashes: no rashes Wound Narrative: The incision is intact with no dehiscence. There is no significant tiesha- incisional erythema, no odor and no purulent discharge. Assessment & Plan Assessment/Plan (1) Anisocoria: (2) Bilateral leg weakness: (3) Status post lumbar spine surgery for decompression of spinal cord: (4) Macrocytic anemia: (5) Fatigue: QUALIFIERS: Fatigue type: chronic, unspecified Qualified Code(s):R53.82 - Chronic fatigue, unspecified (6) Vertigo: (7) Dysarthria: PLAN: Plan 1. Continue therapy 2. she had vertigo again this AM and I suspect this is due to the fact that sheis once again not drinking enough non-caffeinated fluid. She was once again encouraged to increase her water intake. 3. Discharge is planned to home next Wednesday. Charges/Coding Visit Charges Inpatient E&M: 98234 Subs Hosp L2 03/05/23 1241 <Electronically signed by Mariluz Cisneros DO> Mariluz Cisneros DO Cosigner Signature (if applicable): CC: ~ Signed [facility] Work Phone: 1([phone]) 101-617208-15-2023 Progress note Author Mariluz Cisneros [facility] March 02, 2023 3:28pm Note Date/Time March 02, 2023 1: 28pm [facility] Medical Records Department [address] [place] [address] Progress Note 03/02/23 1327 MR#: [id number] Acct: [id number] Name: YADIRA PEREZ Rep #:[id number] : 1950 72 From: Mariluz [facility] PCP: Dr. Carl Bourgeois, DO Status:ADM IN Location: [place] [address] Subjective Subjective Afebrile VSS-blood pressure and heart rate are within normal limits. Maintaining appropriate oxygen saturation on RA Oral intake is good. Discussed with nursing - no problems that need addressed Reviewed the PT/OT/ST notes Medication list reviewed. She feels as though she is getting stronger. She is sleeping well and her pain is adequately controlled. She has been intentionally increasing her water intake and she is on her second liter today. She has some vertigo when she first gets up in the morning but, it is not bad and she did no0t take Meclizine today. It generally resolves prior to the Meclizine having a chance to get intoher system. She denies MONROY, CP, SOB, cough, dysuria and calf pain. She has not noticed her speech to be slurred. She denies feeling anxious or depressed. She is feeling good. Objective Data Objective Data Vital Signs: Vital Signs Temp Pulse Resp BP Pulse Ox O2 Del Method O2 Flow Rate 98.3 F 59 L 16 123/64 H 97 Room Air 0 03/02/23 07:51 03/02/23 07:51 03/02/23 07:51 03/02/23 07:51 03/02/23 07:51 03/02/23 07:51 02/25/23 21:46 FiO2 21 02/25/23 21:46 Oxygen Flow Rate (L/min) 0 Oxygen Delivery Method Room Air Weight: 208 lb 5.389 oz Body Mass Index (BMI) 33.6 Intake & Output: Intake and Output for Last 24 Hours 02/28/23 03/01/23 03/02/23 23:59 23:59 23:59 Intake Total 60 / 60 300 / 300 360 / 360 Output Total 350 / 350 Balance -290 / -290 300 / 300 360 / 360 Lab / Micro Data 02/25/23 05:08 02/25/23 05:08 Micro: Microbiology 03/01/23 20:04 Stool Stool Occult Blood (CESAR) - Final Physical Exam Const alert, oriented x3 and no apparent distress Constitutional Narrative: looks happy and relaxed sitting in bed. General Appearance: cooperative Orientation / Consciousness: Negative for confused Resp normal respiratory effort, normal air movement and clear to auscultation bilaterally Cardio regular rate, regular rhythm and no gallops GI normal to inspection, nondistended, normoactive bowel sounds, soft to palpation and non-tender Extremity no calf tenderness General Extremity: Negative for edema Skin General Skin Exam: no breakdown Rashes: no rashes Neuro CN's II-XII intact bilaterally Neuro Narrative: She has no slurred speech, no facial droop and no ataxia today. Coordination / Balance: [id number] test normal and [id number] test normal Speech: speech normal Psych cooperative and affect normal Assessment & Plan Assessment/Plan (1) Anisocoria: (2) Bilateral leg weakness: (3) Status post lumbar spine surgery for decompression of spinal cord: (4) Macrocytic anemia: (5) Fatigue: QUALIFIERS: Fatigue type: chronic, unspecified Qualified Code(s):R53.82 - Chronic fatigue, unspecified (6) Vertigo: (7) Dysarthria: PLAN: Plan 1. Continue therapy 2. continue to taper off as many medications as possible. 3. PT will teach her the head maneuvers to do for BPV. She does not have Meniere's so will DC the HCTZ.......it was making her more symptomatic because she was not drinking enough water and she was dry. 4. Discontinue the potassium supplement since she is no longer taking hydrochlorothiazide. 5. Recheck a BMP on Charges/Coding Visit Charges Inpatient E&M: 07973 Subs Hosp L2 03/02/23 1527 <Electronically signed by Mariluz Cisneros DO> Mariluz Cisneros DO Cosigner Signature (if applicable): CC: ~ Signed [facility] Work Phone: 1([phone]) 876-535308-14-2023 Progress note Author Mariluz Cisneros [facility] March 01, 2023 4:21pm Note Date/Time March 01, 2023 11 :46am [facility] Medical Records Department [address] [place] [address] Progress Note 03/01/23 1143 MR#: [id number] Acct: [id number] Name: YADIRA PEREZ Rep #:[id number] : 1950 72 From: Mariluz Cisneros DO PCP: Dr. Carl Bourgeois, DO Status:ADM IN Location: [place] [address] Subjective Subjective Leila was seen on team rounds today. Her Riki and her daughter were present in the room. Afebrile VSS Maintaining appropriate oxygen saturation on RA Oral intake is good Discussed with nursing - no problems that need addressed Reviewed the PT/OT notes Medication list reviewed. She is sleeping well. Pain is adequately controlled. She denies chest pain, palpitations, hemoptysis, cough, nausea/vomiting/abdominal pain, dysuria and calf pain. She occasionally has mild slurred speech and I feel this happens when she has a poor fluid intake with decreased cerebral blood flow. The BP does drop from 123/60 when lying down to 104/44 standing up. Heart rate does not change with changes in position and this is likely secondary to the Propanolol 10 mg twice daily that she takes, I suspect for migraines. MM are dry and she is being encouraged to increase her fluid intake. She has not noticed any difference in her mood with the decrease in the Buspar and the Cymbalta last week. She is not feeling anxious or depressed and she hasless pain since the GABApentin was added to the drug regimen. Objective Data Objective Data Vital Signs: Vital Signs Temp Pulse Resp BP Pulse Ox O2 Del Method O2 Flow Rate 96.8 F L 58 L 16 117/60 95 Room Air 0 03/01/23 07:25 03/01/23 07:25 03/01/23 07:25 03/01/23 07:25 03/01/23 09:29 03/01/23 07:25 02/25/23 21:46 FiO2 21 02/25/23 21:46 Oxygen Flow Rate (L/min) 0 Oxygen Delivery Method Room Air Weight: 208 lb 5.389 oz Body Mass Index (BMI) 33.6 Intake & Output: Intake and Output for Last 24 Hours 02/27/23 02/28/23 03/01/23 23:59 23:59 23:59 Intake Total 350 / 350 60 / 60 Output Total 400 / 400 350 / 350 Balance -50 / -50 -290 / -290 Lab / Micro Data 02/25/23 05:08 02/25/23 05:08 Physical Exam Const alert and no apparent distress General Appearance: cooperative HEENT moist oral mucous membranes Resp normal respiratory effort, no use of accessory muscles and clear to auscultationbilaterally Effort and Inspection: Negative for tachypneic or labored Cardio regular rate, regular rhythm and no gallops GI normal to inspection, nondistended, normoactive bowel sounds, non-tender and non-distended GI Narrative: no guarding with palpation Extremity Negative for no calf tenderness Extremity Narrative: The incision is intact with no tiesha-incisional erythema, no purulent discharge and no dehiscence. General Extremity: Negative for edema Skin General Skin Exam: no breakdown Rashes: no rashes Psych affect normal Assessment & Plan Assessment/Plan (1) Anisocoria: (2) Bilateral leg weakness: (3) Status post lumbar spine surgery for decompression of spinal cord: (4) Macrocytic anemia: (5) Fatigue: QUALIFIERS: Fatigue type: chronic, unspecified Qualified Code(s):R53.82 - Chronic fatigue, unspecified (6) Vertigo: (7) Dysarthria: PLAN: Plan 1. Continue therapy 2. Plan discharge home on 03/10 with home health care for home PT/OT. 3. She plans on driving to [place] in mid March and was advised to stop every hour while on the road to get out, stretch and ambulate a little. 4. She was reminded to increase her fluid intake to between 1502 L a day. 5. If no problems occur we will decrease the Cymbalta dosage to 60 mg once daily and the BuSpar to 5 mg twice daily toward the end of the week. Charges/Coding Visit Charges Inpatient E&M: 12806 Subs Hosp L2 03/01/23 9591 <Electronically signed by Mariluz Cisneros DO> Mariluz Cisneros DO Cosigner Signature (if applicable): CC: ~ Signed [facility] Work Phone: 1(243) 907-850408-11-2023 Progress note Author Mariluz Cisneros [facility] February 26, 2023 6:39pm Note Date/Time February 26, 2023 2: 52pm [facility] Medical Records Department [address] [place] [address] Progress Note 02/26/23 1448 MR#: [id number] Acct: [id number] Name: YADIRA PEREZ Rep #:[id number] : 1950 72 From: Mariluz Cisneros DO PCP: Dr. Carl Bourgeois, DO Status:ADM IN Location: [place] [address] Subjective Subjective Afebrile VSS Maintaining appropriate oxygen saturation on RA Oral intake is good Discussed with nursing - no problems that need addressed Reviewed the PT/OT/ST notes Medication list reviewed. the overnight trending pulse ox showed the pulse ox to ranged from 90 to 100% for 99.24% of the monitoring.. More 0.77% of the time the pulse ox ranged from 82- 89.The pulse ox was lower than 90% 4% of the period of time she was monitored. Leila tells me that she is having a much better day today. She slept well last night. Pain is well controlled with the current pain regimen. She denies cephalgia, lightheadedness, chest pain, shortness of breath, nausea/vomiting/abdominal pain, dysuria, calf tenderness, night sweats and chills. Objective Data Objective Data Vital Signs: Vital Signs Temp Pulse Resp BP Pulse Ox O2 Del Method O2 Flow Rate 97.2 F L 77 17 136/71 H 97 Room Air 0 02/26/23 08:18 02/26/23 08:18 02/26/23 08:18 02/26/23 08:18 02/26/23 08:18 02/26/23 10:00 02/25/23 21:46 FiO2 21 02/25/23 21:46 Oxygen Flow Rate (L/min) 0 Oxygen Delivery Method Room Air Weight: 208 lb 5.389 oz Body Mass Index (BMI) 33.6 Intake & Output: Intake and Output for Last 24 Hours 02/24/23 02/25/23 02/26/23 23:59 23:59 23:59 Output Total 300 / 300 350 / 350 1000 / 1000 Balance -300 / -300 -350 / -350 -1000 / -1000 Lab / Micro Data 02/25/23 05:08 02/25/23 05:08 Physical Exam Const alert, oriented x3 and no apparent distress General Appearance: cooperative HEENT Mouth: dry mucous membranes Resp normal respiratory effort and clear to auscultation bilaterally Effort and Inspection: Negative for tachypneic or labored Cardio regular rate and regular rhythm Cardio Narrative: No change in the murmur at the second right intercostal space. GI normal to inspection, nondistended, normoactive bowel sounds, soft to palpation and non-tender GI Narrative: No guarding with palpation Extremity no calf tenderness General Extremity: Negative for edema Skin General Skin Exam: no breakdown Rashes: no rashes Assessment & Plan Assessment/Plan (1) Anisocoria: (2) Bilateral leg weakness: (3) Status post lumbar spine surgery for decompression of spinal cord: (4) Macrocytic anemia: (5) Fatigue: QUALIFIERS: Fatigue type: chronic, unspecified Qualified Code(s):R53.82 - Chronic fatigue, unspecified (6) Vertigo: (7) Dysarthria: PLAN: Plan 1. Continue therapy 2. We discussed tapering some of her medications down to see if the fatigue improves and she is on board with this. 3. I reviewed Dr. Tejeda's office notes and Yadira is being treated for inflammatory polyarthropathy and fibromyalgia. She does not have lupus or rheumatoid arthritis. 4. Decrease BuSpar to 10 mg p.o. twice daily and decrease Cymbalta to 60 mg once daily. She denies feeling anxious or depressed at the present time. 5. Continue methotrexate and Plaquenil. 6. Continue gabapentin. Charges/Coding Visit Charges Inpatient E&M: 80674 Subs Hosp L2 02/26/23 1839 <Electronically signed by Mariluz Cisneros DO> Mariluz Cisneros DO Cosigner Signature (if applicable): CC: ~ Signed [facility] Work Phone: 1(416) 572-268208-11-2023 History and physical note Author Mariluz Cisneros [facility] February 26, 2023 2:47pm Note Date/Time February 25, 2023 5: 15pm [facility] Medical Records Department [address] [place] [address] Post Admission Physician Audra 02/25/23 1713 MR#: [id number] Acct: [id number] Name: YADIRA PEREZ Rep #:[id number] : 1950 72 From: Mariluz Cisneros DO PCP: Dr. Carl Bourgeois DO Status:ADM IN Location: [place] [address] Admission Information Primary Diagnosis:: Debility secondary to bilateral leg weakness related to recent lumbar decompression and fusion. Status Changes from Prescreening?: No changes Identified Actual Problem List:: Skin Intergrity, Pain, ALteration in Cmfrt, Cognitve Impr/Memory Loss, Depression, Bowel, Constipation, Alteration in Sleep, MobilityImpaired, Self Care Deficit, Know.Dfct of Medicaitons and Alteration- Leisure Activ. Potential Problem List:: DVT, Bleeding, Infection, UTI, Aspiration, Falls, Skin Integrity and Depression Risk of Complications DVT: NADEEM Hose and Sequential Compression Device Bleeding: Monitor Lab Values, Nursing to Teach Precautions for anti-coagulation therapy., Wound, if applicable, to be assessed every shift. and Stroke patients assessed for lethargy or change in status. Infection: Clinical Staff to Monitor for S/S of infection: and S/S of infection include fever, redness, warmth, etc. Urinary Tract Infection: Monitor for frequency, burning, discomfort, or incontinence. and Nursing will obtain urine sample for urinalysis and C&S when ordered. Aspiration: Clinical staff will monitor for coughing, drooling, congestion., Speech will evaluate swallowing and dsyphasia. and Nursing will monitor patient swallowing during meals. Falls: Patient will be evaluated for Fall Precautions and Patient will be placedon Fall Precautions as indicated per protocol. Skin Breakdown: Nursing will assess skin daily using assessment tool. and Nursing will place on Skin Breakdown Precautions as indicated. Pain: Clinical staff will assess patient's pain level per protocol., Medicationswill be given, if needed, and the pain level reassessed. and Other methods: Massage, distraction, decrease stimulus, etc. used PRN. Plan of Care Patient requires physician specializing in physical medicine and rehab oversightto provide close medical supervision of rehab issues including: Pain Management,Sleep Problems, Bowel and Bladder, Medical and co-morbidity Management, DVT prophylaxis, Rehabilitation Leadership and Coordination of treatment team Patient needs Physical Therapy: For a minimum of 1 hour and At least 5 out of 7 days Patient needs Physical Therapy to improve:: Mobility, Strengthening, Transfers, Stretching, ROM, Endurance, Stairs, Gait and Balance Patient needs Occupational Therapy: For a minimum of 1 hour and At least 5 out of 7 days Patient needs Occupational Therapy to improve ADL's incl.: Eating, Grooming, Bathing, Dressing, Toileting, Toilet transfers, Community Reintegration, Higher functioning activities, Household tasks, Adaptive Equipment, Splinting and Otheractivities as determined Patient requires 24/ Rehabilitation Nursing for: Pain Issues, Identifying and preventing risk factors, Monitoring and reporting current medical conditions, Assisting with ambulation, transfer, and all ADL's, Teaching patients about disease process and medications, Family teaching, Providing safe environment, Bowel and Bladder Issues, Skin integrity and Medication Management Patient needs Campus Security Director/ Case Management for: Discharge Planning, Arranging Home Equipment or Services and Family Interventions Patient needs Dietary and Nutrition Services for: Adequate Nutrition, Nutritional Supplements and Nutritional Education Goals Patient will remain: free from falls and or injury at time of discharge. Patient will perform bed mobility at: MOD I level of assist. Patient will complete transfers from bed to chair at: MOD I level of assist. Patient will ambulate: - (500 feet with least restrictive device on various surfaces at mod I) Patient will complete upper body dressing at: MOD I level of assist. Patient will complete lower body dressing at: MOD I level of assist. (With adaptive equipment as needed.) Patient will complete toileting at: MOD I level of assist. Patient will perform bathing at: MOD I level of assist. Patient will complete grooming at: MOD I level of assist. Patient will complete home management skills at: MOD I level of assist. Patient will achieve: - (She will complete 2 steps with the least restrictive device at contact-guard assist to allow access to her home.) Patient will have pain level of: of 3 or less Patient's skin will: remain intact Patient will receive: adequate nutrition. Discharge Planning Pt Prognosis for Sig. Practical Improv. w/in Reasonable Time: Good Estimated Length of stay (days): 21 Anticipated D/C Destination: Home with Outpt Therapy Was Preadmission Assessment Accurate?: Yes 02/26/23 8868 <Electronically signed by Mariluz Cisneros DO> Cosigner Signature (if applicable): CC: ~ Signed [facility] Work Phone: 1(568) 517-770708-10-2023 History and physical note Author Mariluz Josephilana [facility] February 25, 2023 5:12pm Note Date/Time February 25, 2023 1: 32pm [facility] Medical Records Department [address] [place] [address] History & Physical Exam 02/25/23 1322 MR#: [id number] Acct: [id number] Name: YADIRA PEREZ Rep #:[id number] : 1950 72 From: Mariluz Cisneros DO PCP: Dr. Carl Bourgeois, DO Status:ADM IN Location: [address] HPI - General General Date of Admission: 02/24/23 Date of Service: 02/25/23 Chief Complaint: Debility due to recent lumbar decompression and fusion. HPI Narrative YADIRA PEREZ, is a 72 F with a PMH of anxiety/depression, fibromyalgia, hypertension, peripheral neuropathy, osteoporosis and benign positional vertigo who recently had a bilateral posterior microdecompression of L3-L4, L4-L5 and local graft, allograft for L4-5 fusion on 02/17/[address] Frank Horan. She went home on 02/19/23 but on 02/21/23 she became extremely weak and started having musclespasms and pain to the BL anterior thighs. She was seen at the [facility] ED. She tells me that she did not know she was supposed to get up and move every hour while awake and she thinks this may be what caused the decline. She had no difficulties with bowel or bladder. Labs showed a normal white blood cell countand she was afebrile. Hemoglobin was 10.9 with an MCV of 102.1. Platelets werenormal. Differential was unremarkable. ESR and CRP were elevated however this is expected in the postoperative patient. A UA had [address] was un[address]. CT scan of the lumbar spine showed recent surgical changes with partial resection of the posterior elements from L3-L5 with posterior pedicle screws and interbody rods at L4/5. There was postop fluid and air at the location of the posterior element resection but there was also a lot of streak artifact related to surgical hardware. She was admitted to the [facility] on 02/22/23. Additional W/U was unremarkable and acute rehab wasrecommended for strengthening. she was transferred to the acute inpt rehab unitat [facility] on 02/24/23 for 3 hours of therapy daily to restore function/independence at or near her level prior to the surgery. Leila tells me that since her surgery she now has increased feeling in the plantar surfaces of her feet. She denies any paresthesias at this time. The pain in the anterior thighs is getting somewhat better although she tells me shecould not sleep last night because of back pain. She did not remember to ask for pain medication prior to bedtime. She denies hx of RA but, tells me that she is being treated with MTX and Plaquenil for SLE for which she sees Dr. Tejeda. She went to the [facility] in [place] for a second opinion and they told her that she did not have SLE but, she is still on Plaquenil and MTX. She does not think this medication has helped her. Prior tothese medications she was on Lyrica and that did not help her pain and fatigue either. she has been seeing Dr. Moreland for fatigue and has been getting B12 injections but, she is still chronically fatigued. she takes naps during the day and falls asleep in front of the TV. She received a letter from [facility] following an admission in the past that told her she needed a sleep study however, she never followed up with this. She snores and has HTN. She was transitioned from Oxycodone at admission to Tramadol because of hallucinations and some cognitive dysfunction. She has taken 2 doses of Tramadol and currentlyher pain is adequately controlled. She had some vertigo when standing today and it resolved after Meclizine which she takes PRN for vertigo. She was also put on HCTZ for vertigo but, she denies tinnitus and hearing loss. She was able to do her therapy today and did well. She also felt her speech was a little slurred but, she is on several sedating medications and she really did not fall asleep until 5 AM......and her mouth is very dry. No focal neurologic deficits. All lab form this AM was personally reviewed. White blood cell count is normal with an unremarkable differential. Hemoglobin is 9.6 which is down from 10.9 on02/21/2023 and 12.1 on 01/21/2023. MCV is elevated at 104.2. Platelets are normal. BMP is normal. LFTs are unremarkable. Calcium, magnesium and phosphorus are all normal. [facility] Medical History (Updated 02/25/23 @ 17:[address] Mariluz Cisneros, ) Acute bronchitis, unspecified Acute maxillary sinusitis, unspecified Anisocoria Anxiety Carpal tunnel syndrome, right Depression Depressive disorder Dysarthria Dyspnea on exertion Enlarged uterus Expressive aphasia Hot flashes Hypertension Hypoxia Lupus Migraine headache Orthostatic hypotension Osteoarthritis Osteoporosis Stress incontinence in female Stroke/cerebrovascular accident Thickened endometrium Uterine fibroid Vaginal ulcer Home Medications hydrochlorothiazide 25 mg tablet 25 mg PO DAILY BLOOD PRESSURE 11/26/15 [History Last Taken 2 Days Ago ~10/06/22] ibandronate 150 mg tablet 150 mg PO Q30D BONE HEALTH 11/26/15 [History Last Taken 09/16/22] calcium carbonate 500 mg-vitamin D3 10 mcg (400 unit) tablet 1 tab PO TID SUPPLEMENT 04/07/22 [History Last Taken 2 Days Ago ~10/06/22] folic acid 1 mg tablet 1 mg PO DAILY SUPPLEMENT 04/07/22 [History Last Taken 2 Days Ago ~10/06/22] hydroxychloroquine 200 mg tablet (Plaquenil) 200 mg PO BID RHEUMATOID ARTHRITIS 04/07/22 [History Last Taken 2 Days Ago ~10/06/22] methotrexate sodium 2.5 mg tablet 15 mg PO ARIAS RHEUMATOID ARTHRITIS 04/07/22 [History Last Taken 10/04/22] potassium chloride 10 mEq tablet,extended release(part/cryst) 10 meq PO BID SUPPLEMENT 04/07/22 [History Last Taken 2 Days Ago ~10/06/22] aspirin 81 mg tablet,delayed release (Adult Low Dose Aspirin) 81 mg PO DAILY HEART HEALTH 10/08/22 [History Last Taken 2 Days Ago ~10/06/22] duloxetine 60 mg capsule,delayed release 60 mg PO BID DEPRESSION 10/08/22 [History Last Taken 2 Days Ago ~10/06/22] ferrous sulfate 325 mg (65 mg iron) tablet 325 mg PO DAILY SUPPLEMENT 10/08/22 [History Last Taken 2 Days Ago ~10/06/22] meclizine 12.5 mg tablet 12.5 mg PO DAILY PRN DIZZINESS 10/08/22 [History Last Taken Unknown] albuterol sulfate 90 mcg/actuation aerosol inhaler 2 inh inhalation Q6H PRN shortness of breath or wheezing #8.5 grams 10/10/22 [Rx Last Taken Unknown] propranolol 10 mg tablet 10 mg PO BID HTN #60 tabs 11/09/22 [Rx Last Taken Unknown] cyanocobalamin (vitamin B-12) 1,000 mcg/mL injection solution (Dodex) 1,000 mcg subcut QMONTH supplement 02/22/23 [History Last Taken 02/13/23] buspirone 10 mg tablet 15 mg PO BID Anxity 02/24/23 [History Last Taken Unknown] Allergy/AdvReac Type Severity Reaction Status Date / Time codeine Allergy Rash Verified 02/21/23 23:01 Family History Sister Lupus Mother CVA (cerebral vascular accident) Heart disease Hypertension Father Heart disease Hypertension Brother Heart disease Sister Diabetes Surgical History (Updated 02/25/23 @ 17:[address] 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 pets and animals: Yes Smoking Status: Never smoker second hand exposure: No alcohol intake: never substance use type: does not use seatbelt use: always do you feel safe at home: Yes additional social history: - Riki BROOKS Review of Systems ROS Unobtainable: Denies due to encephalopathy, due to endotracheal tube, due tomental condition or due to mental status Constitutional Constitutional: Reports daytime sleepiness and weakness; Denies anorexia, changein weight, chills, fatigue, fever(s) or night sweats Eyes Eyes: Denies blurry vision, change in vision, eye pain or loss of vision ENT HEENT: Reports vertigo; Denies abnormal hearing, dysphagia, headache(s), hearingloss, nasal congestion or sore throat Cardiovascular Cardiovascular: Reports lightheadedness; Denies chest pain, dyspnea on exertion,edema, orthopnea, palpitations, paroxysmal nocturnal dyspnea or syncope Respiratory/Chest Respiratory/Chest: Denies cough, dyspnea, shortness of breath at rest, shortnessof breath with exertion or wheezing Gastrointestinal Gastrointestinal: Denies abdominal pain, constipation, diarrhea, dyspepsia, hematemesis, hematochezia, nausea or vomiting Genitourinary Genitourinary: Reports urinary incontinence and other Details: Stress urinary incontinence ; Denies dysuria, hematuria, nocturia, urinary frequency, urinary hesitancy or urinary urgency Musculoskeletal Musculoskeletal: Reports back pain, myalgias and other Details: She tells me that the fibromyalgia pain is in her hands and the R elbow and forearm. She has a hx of carpal tunnel on the R and she has no joint deformities of the hands. ; Denies joint pain, joint swelling or neck pain Integumentary Integumentary: Denies hirsutism or jaundice Neurologic Neurologic: Reports dizziness and headache(s); Denies confusion, disequilibrium,focal weakness, paresthesias, seizures or tremor(s) Psychiatric Psychiatric: Reports anxiety and depression; Denies homicidal ideation or suicidal ideation Endocrine Endocrinology: Denies change in body appearance, polydipsia or polyuria Hematologic/Lymphatic Hematologic/Lymphatic: Denies easy bleeding, easy bruising or lymphadenopathy Allergic/Immunologic Allergic/Immunologic: Denies rhinitis, eczemia or asthma Vital Signs Vital Signs Vital Signs: 02/24/23 20:35 02/25/23 06:00 02/25/23 07:32 Temperature 96.4 F L Temperature Source Oral Pulse Rate 63 Pulse Rate [Lying] 63 Pulse Rate [Sitting (for 1 minute prior to obtaining)] 67 Pulse Rate [Standing (for 1 minute prior to obtaining)] 69 Pulse Strength Respiratory Rate 16 Respiratory Effort Respiratory Depth Respiratory Pattern Blood Pressure 133/62 H Blood Pressure [Lying] 133/70 H Blood Pressure [Sitting (for 1 minute prior to obtaining)] 125/60 H Blood Pressure [Standing (for 1 minute prior to obtaining)] 140/73 H Blood Pressure Mean 85 Blood Pressure Mean [Lying] 91 Blood Pressure Mean [Sitting (for 1 minute prior to obtaining)] 81 Blood Pressure Mean [Standing (for 1 minute prior to obtaining)] 95 Blood Pressure Source Monitor Blood Pressure Position Semi-Fowlers Blood Pressure Location Left Arm Pulse Ox 97 98 Oxygen Delivery Method Room Air Room Air 02/25/23 09:00 02/25/23 10:00 02/25/23 11:46 Temperature 96.5 F L Temperature Source Oral Pulse Rate 69 Pulse Rate [Lying] Pulse Rate [Sitting (for 1 minute prior to obtaining)] Pulse Rate [Standing (for 1 minute prior to obtaining)] Pulse Strength Normal (2+) Respiratory Rate 16 Respiratory Effort Normal Non-Labored Respiratory Depth Normal Respiratory Pattern Normal Blood Pressure 137/82 H Blood Pressure [Lying] Blood Pressure [Sitting (for 1 minute prior to obtaining)] Blood Pressure [Standing (for 1 minute prior to obtaining)] Blood Pressure Mean 100 Blood Pressure Mean [Lying] Blood Pressure Mean [Sitting (for 1 minute prior to obtaining)] Blood Pressure Mean [Standing (for 1 minute prior to obtaining)] Blood Pressure Source Monitor Blood Pressure Position Semi-Fowlers Blood Pressure Location Right Arm Pulse Ox 97 Oxygen Delivery Method Room Air Room Air Weight Weight: 211 lb 13.828 oz Body Mass Index (BMI) 34.2 Physical Exam Const alert, oriented x3 and no apparent distress General Appearance: cooperative and comfortable HEENT normocephalic and head/scalp atraumatic HEENT Narrative: Dry mucous membranes Eyes Eyes Narrative: The R pupil is larger than the left and this is chronic. Neck supple, thyroid normal, No nodes and no carotid bruits Chest Chest: symmetrical chest wall rise Resp normal respiratory effort, no use of accessory muscles and clear to auscultationbilaterally Effort and Inspection: able to speak in complete sentences; Negative for tachypneic Cardio regular rate, regular rhythm, S1 normal heart sound, S2 normal heart sound, no rub and no gallops Cardio Narrative: Soft 1-2/6 systolic EF at the 2nd RICS......possibly due to flow MM from anemia. No ectopy GI normal to inspection, nondistended, normoactive bowel sounds, non-tender and non-distended GI Narrative: No guarding with palpation Back/Spine Back/Spine Narrative: The incision in the low back is covered by a bandage.....will examine in the AM when the bandage is changed. General Back: Negative for CVA tenderness Extremity no clubbing, cyanosis or edema Extremity Narrative: No calf tenderness. Pedal pulses are normal. She has intact sensation in bothfeet. Skin no rashes or lesions noted and no jaundice General Skin Exam: no breakdown Neuro oriented x3, CN's II-XII intact bilaterally, no focal motor deficits and no sensory deficits noted Sensorium / Orientation: alert Psych affect normal, denies hallucinations, denies homicidal ideation and denies suicidal ideation Psych Narrative: appropriate, makes good eye contact Appearance: well kempt Attitude: calm Results Lab / Micro Data 02/25/23 05:08 02/25/23 05:08 Labs: Laboratory Results - last 24 hr 02/25/23 05:08: WBC 7.0, RBC 2.89 L, Hgb 9.6 L, Hct 30.1 L, MCV 104.2 H, MCH 33.2 H, MCHC 31.9 L, RDW Std Deviation 47.3 H, RDW Coeff of Eduardo 12.6, Plt Count 277, MPV 10.1, Immature Gran % (Auto) 0.400, Neut % (Auto) 66.7, Lymph % (Auto) 16.6 L, Hayes % (Auto) 11.6 H, Eos % (Auto) 3.8, Baso % (Auto) 0.9, Absolute Neuts (auto) 4.7, Absolute Lymphs (auto) 1.17, Nucleated RBC % 0, Sodium 140, Potassium 3.8, Chloride 106, Carbon Dioxide 30.0, Anion Gap 4 L, BUN 14, Creatinine 0.73, Estim Creat Clear Calc 47.60, Est GFR (MDRD) Af Amer 100, Est GFR (MDRD) Non-Af 83, BUN/Creatinine Ratio 19.1, Glucose 101, Calcium 9.0, Phosphorus 4.4, Magnesium 2.2, Total Bilirubin 0.30, AST 27, ALT 23, Alkaline Phosphatase 52, Total Protein 5.8 L, Albumin 2.3 L, Globulin 3.5, Albumin/Globulin Ratio 0.7 L, Vitamin D 25-Hydroxy 73.1 Assessment & Plan Assessment/Plan (1) Anisocoria: (2) Bilateral leg weakness: (3) Status post lumbar spine surgery for decompression of spinal cord: (4) Macrocytic anemia: (5) Fatigue: QUALIFIERS: Fatigue type: chronic, unspecified Qualified Code(s):R53.82 - Chronic fatigue, unspecified (6) Vertigo: (7) Dysarthria: PLAN: Plan 1. PLAN PT for gait stability OT for ADL's ST for evaluation Analgesics as needed Bowel protocol Fall precautions Assess for Anxiety/Depression GI prophylaxis not necessary, asymptomatic and has no hx of PUD DVT prophylaxis with SCDs and NADEEM hose until okay with surgery for pharmacologicDVT prophylaxis Follow up with Dr. Carl Bourgeois, Dr. Frank Horan following DC from Rehab AM lab including CMP, CBC, Mag and Phos all personally reviewed. Schedule pain medication at bedtime and change the Baclofen to 5 mg daily at HS. Change the Gabapentin to 100 mg BID and 200 mg at 2100 Continue with PRN Tramadol. Place a straight back chair in her room for comfort. I am doubtful that she has SLE and ? why she is on Plaquenil and MTX? She is not on a NSAID. Will request records from Dr. Tejeda and [facility]. The chronic fatigue could be due to polypharmacy or she may have sleep apnea. Stop BANG score now is 4......will check the neck circumference. Overnight trending pulse ox tonight. HCTZ discontinued.......she has periodic vertigo but, no hearing loss and no tinnitus........and she does not drink enough fluids on a regular basis because she has stress urinary incontinence. Check a hemoccult stool Charges/Coding Visit Charges Inpatient E&M: 42684 Init Hosp L3 02/25/23 1712 <Electronically signed by Mariluz Cisneros DO> Cosigner Signature (if applicable): CC: Dr. Carl Bourgeois DO; Dr. Mariluz Cisneros DO~ Signed [facility] Work Phone: [phone]) 584-587405-15-2023 Discharge summary Author Radha Mcgrath [facility] November 30, 2022 9:49am Note Date/Time November 30, 2022 9:49a m [facility] Physical Therapy Health[address] [place] [address] / REHABILITATION SERVICES DISCHARGE SUMMARY MR#: [id number] Acct: [id number] Name: YADIRA PEREZ Rep #: [id number] : 1950 72 From: Radha Mcgrath PT, Cert. MDT Referring Dr.: Dr. Carl Bourgeois DO Status: REG RCR Insurance: MEDICARE PART A B COMMERCIAL OTHER It has been my pleasure to treat YADIRA PEREZ referred by Dr. Carl Bourgeois DO, with the diagnosis of INFLAMMATORY POLYARTHROPATHY for a total of 36visit(s). Discharge Date: Please see the following information for a summary of their discharge status. Subjective: PATIENT REPORTS SHE IS TAKING HER MEDICATION FOR DIZZINESS EVERYDAY NOW AND IT HELPS. SHE STATES SHE HAS COME A LONG WAY WITH PT AND FEELS SHE HAS HAD 80% IMPROVEMENT SINCE STARTING PT. STATES SHE WAS ABLE TO WALK AROUND THE FACILITY X 2 WITHOUIT A BREAK LAST VISIT. I AM JUST SO PLEASED WITH HOW I AM DOING. STATES SHE SHE CAN DO CURBS WITH THE HELP OF HER WITH ONE HAND NOW WHEN THEY GO OUT TO EAT OR SHOPPING. STATES SHE CAN GET IN AND OUT OF THE HOUSE (ONE STEP) NOW BY HERSELF BUT HAS TO HOLD DOOR FRAME ON BOTH SIDES BECAUSETHERE IS NO HR. IS PLANNING TO PUT A GRAB BAR UP. PATIENT REPORTS SHE HAS BEEN GETTING B12 SHOTS AND THEY ARE HELPING HER WITH HER ENERGY. SHE REPORTS SHE BOUGHT CUFF WEIGHTS, HAS HER BIKE AND COUNTER HOME EX'S THAT SHE IS DOING NOW. PATIENT REPORTS SHE IS EVEN WALKING AROUND THE HOUSE WITHOUT HER ROLLATOR OR CANE SOMETIMES TOO. 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 [place] Pain Intensity (Out of 10): Unrated GENERALIZED PAIN Pain Intensity (Out of 10): 0 % Improvement: 80 Objective/Function: PATIENT WAS SEEN TODAY FOR RE-ASSESSMENT OF PROGRESS TOWARD THE SET PT GOALS AND THE NEED FOR FURTHER PHYSICAL THERAPY VS READINESS FOR DISCHARGE. ALL PT GOALS HAVE BEEN MET AND PATIENT IS APPROPRIATE FOR AND AGREEABLE TO D/C. LEFS SCORE HAS IMPROVED FROM 26 TO 33 SINCE LAST RE-CHECK. Goal 1:: PATIENT WILL COMPLETE 9 STANDS IN 30 SECS W/ ONE UE ASSIST TO DEMONSTRATE IMPROVED FUNCTIONAL STRENGTH Goal Progress: Goal Met Goal 2:: PATIENT WILL COMPLETE TUG IN < 15 SECS TO DEMONSTRATE IMPROVED GAIT STABILITY Goal Progress: Goal Met Goal 3:: PATIENT WILL AMBULATE 500 FEET WITH WW WITH SUPERVISION X 1 TO IMPROVEACTIVITY TOLERANCE Goal Progress: Goal Met Goal 4:: PATIENT WILL BE INDEP WITH A HEP FOR CONTINUED IMPROVEMENT ONCE FORMAL PHYSICAL THERAPY CONCLUDES. Goal Progress: Goal Met Goal 5:: PATIENT WILL BE ABLE TO GO UP AND DOWN CURB SAFELY WITH LEAST ASSISTANCE. Goal Progress: Goal Met Plan: D/C TO INDEP HEP. PATIENT IS AGREEABLE. If there are questions or concerns regarding this patient's physical therapy, please feel free to call me at [phone]. Thank you for the referral of thispatient. Sincerely, Radha Mcgrath, PT, Cert MDT Balance/Gait/Functional tests - Balance/Special Test Scores Lower Extremity Functional Score: 33 TUG Test Time Seconds: 19.28 Tug Test: 20-30sec.=variable mobility 30 Second Chair Rise Test Seconds: 9 <Electronically signed by Radha Mcgrath PT Cert. MDT> 11/30/22 0949 CC: Dr. Carl Bourgeois, DO ~ MONTEZ Signed [facility] Work Phone: 1(228) 140-189603-25-[address] Stoner [facility] October 10, 2022 11:46am Note Date/Time October 10, 2022 11: 37am [facility] Medical Records Department [address] [place] [id number] Instructions for Home/Discharge Instructions 10/10/22 0936 MR#: [id number] Acct: [id number] Name: YADIRA PEREZ Rep #:[id number] : 1950 72 From: Raudel Michael PCP: Dr. Carl Bourgeois, Status:ADM IN Discharge Instructions Diet Discharge Diet: 2000 mg Sodium Diet Activity Discharge Activity: Return to Normal Activity Weight Bearing Status: Weight bearing as tolerated Dressing / Incision Call your doctor if you observe: Fever of 101 or Higher, Coldness, Increased Pain, Numbness or Tingling, Change in Color, Inability to urinate, Inability to have a bowel movement, Using more than 1 pad per hour, Shortness of breath, Dizziness, Fainting spells, Swelling in the ankles, Chest pain, Prolonged hiccupping, Increased palpitations (irregular heartbeat) and Calf discomfort Follow Up Care When: IN 2 WEEKS Test Results: Test results from this visit will be discussed in further detail at your follow- up appointment, if applicable. Discharge Plan Admission Admit Date/Time: 10/08/22 14:53 Primary Reason for Your Visit: acute viral bronchitis Attending Provider: Raudel Stoner Primary Care Provider: Carl Bourgeois Consulting Providers: Rajat Dalal Discharge Orders/Prescriptions Prescriptions: New pseudoephedrine-guaifenesin [Mucus D] 120-1,200 mg tablet extended release 12 hr 1 tab PO Q12H Qty: 14 0RF albuterol sulfate 90 mcg/actuation HFA aerosol inhaler 2 inh inhalation Q6H PRN (Reason: shortness of breath or wheezing) Qty: 8.5 0RF Continued folic acid 1 mg tablet 1 mg PO BID methotrexate sodium 2.5 mg tablet 15 mg PO ARIAS hydroxychloroquine [Plaquenil] 200 mg tablet 200 mg PO BID calcium carbonate-vitamin D3 500 mg-10 mcg (400 unit) tablet 1 tab PO TID loratadine [Allergy Relief (loratadine)] 10 mg tablet 10 mg PO DAILY PRN (Reason: allergic symptoms) potassium chloride 10 mEq tablet,ER particles/crystals 10 meq PO BID propranolol 40 mg tablet 40 mg PO DAILY hydrochlorothiazide 25 MG tablet 25 mg PO DAILY ibandronate 150 MG tablet 150 mg PO Q30D ferrous sulfate 325 mg (65 mg iron) Tablet 325 mg PO DAILY duloxetine 60 mg capsule,delayed release(DR/EC) 60 mg PO BID buspirone 5 mg tablet 5 mg PO BID meclizine 12.5 mg tablet 12.5 mg PO DAILY PRN (Reason: DIZZINESS ) aspirin [Adult Low Dose Aspirin] 81 mg tablet,delayed release (DR/EC) 81 mg PO DAILY prednisone 10 mg tablet 10 mg PO DAILY PRN (Reason: STEROID) Discontinued clindamycin HCl 300 mg capsule 300 mg PO TID Referrals / Follow Up: Negrito Shi DO [Med Staff - Active Staff] - Within 1 Month (CHRONIC Cough for 1month, PFT, non smoker) Carl Bourgeois DO [Primary Care Provider] - Disposition Disposition (needs filled in before D/C Order can be placed): Home, Self Care 10/10/22 1146<Electronically signed by Raudel Stoner MD>Raudel Stoner MD CC: Dr. Carl Bourgeois DO; Dr. Rajat Dalal MD ~ Signed [facility] Work Phone: [phone]) [phone] Stoner [facility] October 09, 2022 4:05pm Note Date/Time October 09, 2022 4:0 5pm [facility] Medical Records Department [address] [place] [address] Progress Note - Hospitalist 10/09/22 1553 MR#: [id number] Acct: [id number] Name: YADIRA PEREZ Rep #:[id number] : 1950 72 From: Raudel Michael PCP: Dr. Carl Bourgeois, DO Status:ADM IN Location: [place] [address] Reason for Visit Reason for Visit: Diagnoses Transient cerebral ischemic attack, unspecified (10/08/22) Pneumonia, unspecified organism (10/08/22) Altered mental status, unspecified (10/08/22) Follow-up for acute bronchitis Objective Data Objective Data Vital Signs: Vital Signs Temp Pulse Resp BP Pulse Ox O2 Del Method O2 Flow Rate 98.6 F 56 L 18 126/59 H 98 Nasal Cannula 2 10/09/22 15:37 10/09/22 15:37 10/09/22 15:37 10/09/22 15:37 10/09/22 15:37 10/09/22 15:37 10/09/22 15:37 Oxygen Flow Rate (L/min) 2 Oxygen Delivery Method Nasal Cannula Weight: 190 lb Body Mass Index (BMI) 30.7 Intake & Output: Intake and Output for Last 24 Hours 10/07/22 10/08/22 10/09/22 23:59 23:59 23:59 Intake Total 545 / 665 1105 / 1105 Output Total 540 / 540 Balance 545 / 425 565 / 565 Lab / Micro Data Result Diagrams: 10/09/22 06:05 10/09/22 06:05 Labs: Laboratory Results - last 24 hr 10/09/22 06:05: WBC 8.4, RBC 3.70 L, Hgb 12.1, Hct 37.9, MCV 102.4 H, MCH 32.7 H, MCHC 31.9 L, RDW Std Deviation 47.7 H, RDW Coeff of Eduardo 12.9, Plt Count 252, MPV 10.2, Immature Gran % (Auto) 0.600, Neut % (Auto) 84.1 H, Lymph % (Auto) 7.7L, Hayes % (Auto) 6.8, Eos % (Auto) 0.2, Baso % (Auto) 0.6, Absolute Neuts (auto)7.1, Absolute Lymphs (auto) 0.65 L, Nucleated RBC % 0 10/09/22 06:05: Sodium 137, Potassium 3.5, Chloride 100, Carbon Dioxide 31.0, Anion Gap 6, BUN 10, Creatinine 0.84, Estim Creat Clear Calc 56.67, Est GFR (MDRD) Af Amer 86, Est GFR (MDRD) Non-Af 71, BUN/Creatinine Ratio 12.0, Glucose 102, Calcium 8.8 Micro: Microbiology 10/08/22 13:30 Nasal Secretion SARS-CoV-2 & FLU Antigen (Rapid) - Final Radiography Diagnostic Testing: Radiology Impression Brain MRI 10/08/22 15:40 IMPRESSION: 1. No intracranial mass, hemorrhage, or acute territorial infarct. Electronically Signed: Ruy Canales MD at 18:47 EDT , Physical Exam Narrative Seen and examined. Patient has hoarseness of voice for 4 weeks which is slightly getting better. Also has cough sore throat, wheezing and mild shortness of breath on exertion. Denies fever or chill. Overall symptoms suggestive of viral bronchitis/URI. Denies COPD asthma or chronic cough or a smoking history. Physical exam General: Alert, Oriented x3, Cooperative HEENT: Atraumatic, PERRLA, EOMI, Normocephalic Oral: Oral mucosa moist. No Gingival or Mucosal Lesions/ Ulcerations Neck: Mild tenderness along submandibular region/throat. Supple, No JVD, Negative Carotid Bruits Lungs: Air entry diminished in bilateral lung bases. Bilateral wheezing Cardiovascular: Regular rate, Regular Rhythm, Normal S1, Normal S2, No murmurs Abdomen: Bowel Sounds Present, Soft, Non Tender, Non-Distended : No renal angle tenderness. No suprapubic tenderness. Extremities: No edema, Capillary Refill Less than 3 Seconds Skin: No rashes, No breakdown Musculoskeletal: No Tenderness to Palpation of Joints or Extremities. ROM intact. Neurological: Cranial nerves II-XII grossly intact, DTR 2+/4 and Symmetrical, Neuro grossly intact Psych/Mental Status: Normal Affect, Appropriate. Assessment & Plan Assessment/Plan (1) Acute alteration in mental status: (2) Pneumonia: (3) Transient ischemic attack: PLAN: Plan This 72-year-old female was admitted with lethargy, generalized weakness with concern of possible stroke. Patient has some residual expressive aphasia from previous stroke and family felt it got worse over last couple days. 1. Mild expressive aphasia from previous stroke: Patient is being admitted in PCU. MRI brain was done does not show acute acute infarct hemorrhage or mass. Earlier patient had CT brain and CTA head and neck which showed chronic involutional changes of brain and calcific plaque at origin of right ICA less than 50% stenosis respectively. Patient was seen by [facility] neurologist in ED the differential diagnosis was possible ischemic stroke versus metabolic process. Acute ischemic stroke ruled out. 2. Possible URI/acute bronchitis/early evolving pneumonia probably viral in origin: Chest x-ray individually reviewed and shows subtle changes at right midlung possible early infiltrate. History of throat, urinary antigens, sputum culture and respiratory panel are ordered. Patient empirically on IV ceftriaxone and azithromycin. 3. Lupus ? Continue with Plaquenil and methotrexate ? Stable 3. HTN/history of CVA ? Can continue with her current and her home blood pressure medications ? Blood pressure is stable 4. Anxiety/depression ? Can continue with Cymbalta DVT: Lovenox CODE STATUS DNR CCA no intubation Clinical Impression(s) from Imaging Studies Brain CT 10/08/22 12:14 IMPRESSION: Chronic involutional changes of the brain. Head/Neck CTA 10/08/22 12:15 IMPRESSION: Calcific plaque at the origin of the right internal carotid artery causing less than 50% stenosis. Chest X-Ray 10/08/22 12:52 IMPRESSION: Mild degree of increased markings in the right midlung. Early infiltrate should be ruled out. Electronically Signed: Manfred Aaron MD at 13:26 EDT , Brain MRI 10/08/22 15:40 IMPRESSION: 1. No intracranial mass, hemorrhage, or acute territorial infarct. Charges/Coding Visit Charges Inpatient E&M: 72585 Subs Hosp L2 10/09/22 1605 <Electronically signed by Raudel Stoner MD> Cosigner Signature (if applicable): CC: ~ Signed [facility] Work Phone: [phone]) 691-729603-23-[address] Concepcion [facility] October 08, 2022 3:45pm Note Date/Time October 08, 2022 12: 19pm [facility] Medical Records Department [address] [place] [address] Emergency Department Summary 10/08/22 MR#: [id number] Acct: [id number] Name: YADIRA PEREZ Rep #:[id number] : 1950 72 From: Garry Hopson PCP: Dr. Carl Bourgeois DO Status:ADM IN Location: [address] History of Present Illness Chief Complaint: Stroke Alert Narrative Narrative: 72-year-old female here with concern for acute stroke. She was activated as stroke team by EMS in the field. Last known well was proximately 9 PM on 10/07/2022. Patient was noted to have a history of a stroke/TIA. Per EMS patient was seen leaning to the right right-sided facial droop. Per EMS called 2/2 to intractable n/v. Patient does not provide a reliable history 2/2 AMS. Per the patient has been having nausea and vomiting last several days per EMS. Prior similar symptoms: Yes PFSH PFSH Medical History (Updated 10/08/22 @ 15:[address] Garry Concepcion, ) Acute bronchitis, unspecified Acute maxillary sinusitis, unspecified Arthritis Carpal tunnel syndrome, right Depressive disorder Dyspnea on exertion Expressive aphasia Hot flashes Hypertension Lupus Migraine headache Osteoarthritis Osteoporosis SLE (systemic lupus erythematosus related syndrome) Stress incontinence in female Vaginal ulcer Home Medications hydrochlorothiazide 25 mg tablet 25 mg PO DAILY BLOOD PRESSURE 11/26/15 [History Last Taken 2 Days Ago ~10/06/22] ibandronate 150 mg tablet 150 mg PO Q30D BONE HEALTH 11/26/15 [History Last Taken 09/16/22] calcium carbonate 500 mg-vitamin D3 10 mcg (400 unit) tablet 1 tab PO TID SUPPLEMENT 04/07/22 [History Last Taken 2 Days Ago ~10/06/22] folic acid 1 mg tablet 1 mg PO BID SUPPLEMENT 04/07/22 [History Last Taken 2 Days Ago ~10/06/22] hydroxychloroquine 200 mg tablet (Plaquenil) 200 mg PO BID RHEUMATOID ARTHRITIS 04/07/22 [History Last Taken 2 Days Ago ~10/06/22] loratadine 10 mg tablet (Allergy Relief (loratadine)) 10 mg PO DAILY PRN allergic symptoms 04/07/22 [History Last Taken Unknown] methotrexate sodium 2.5 mg tablet 15 mg PO ARIAS RHEUMATOID ARTHRITIS 04/07/22 [History Last Taken 10/04/22] potassium chloride 10 mEq tablet,extended release(part/cryst) 10 meq PO BID SUPPLEMENT 04/07/22 [History Last Taken 2 Days Ago ~10/06/22] propranolol 40 mg tablet 40 mg PO DAILY BLOOD PRESSURE 07/08/22 [History Last Taken 2 Days Ago ~10/06/22] aspirin 81 mg tablet,delayed release (Adult Low Dose Aspirin) 81 mg PO DAILY HEART HEALTH 10/08/22 [History Last Taken 2 Days Ago ~10/06/22] buspirone 5 mg tablet 5 mg PO BID ANXIETY 10/08/22 [History Last Taken 2 Days Ago ~10/06/22] clindamycin HCl 300 mg capsule 300 mg PO TID ANTIBIOTIC 10/08/22 [History Last Taken 2 Days Ago ~10/06/22] duloxetine 60 mg capsule,delayed release 60 mg PO BID DEPRESSION 10/08/22 [History Last Taken 2 Days Ago ~10/06/22] ferrous sulfate 325 mg (65 mg iron) tablet 325 mg PO DAILY SUPPLEMENT 10/08/22 [History Last Taken 2 Days Ago ~10/06/22] meclizine 12.5 mg tablet 12.5 mg PO DAILY PRN DIZZINESS 10/08/22 [History Last Taken Unknown] prednisone 10 mg tablet 10 mg PO DAILY PRN STEROID 10/08/22 [History Last Taken Unknown] Allergy/AdvReac Type Severity Reaction Status Date / Time codeine Allergy Rash Verified 10/06/22 11:14 Family History Sister Lupus Mother CVA (cerebral vascular accident) Heart disease Hypertension Father Heart disease Hypertension Brother Heart disease Sister Diabetes Surgical History H/O dilation and curettage H/O tubal ligation History of hernia surgery History of hip surgery History of tonsillectomy Social History adopted: No household members: spouse housing: house number of children: 1 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 pets and animals: Yes Smoking Status: Never smoker second hand exposure: No alcohol intake: never substance use type: does not use seatbelt use: always do you feel safe at home: Yes additional social history: - Riki ROS ROS ED ROS Narrative Unable to obtain review of systems secondary to mental status change, acuity of condition Review of Systems ROS Unobtainable: due to mental status EXAM Physical Exam Narrative Exam Narrative: Nursing triage notes reviewed, Vital signs reviewed Constitutional: please see mdm HENT: MMM Eyes: Pupils equal round and reactive to light, Extraocular muscles intact Neck: No stridor, no JVD, full neck ROM Lungs: Clear to auscultation, No wheezing or rales. No increased work of breathing, no conversational dyspnea, no accessory muscle use, no nasal flaring. No respiratory distress noted Heart: Regular rate and rhythm, No murmurs, No rubs and No gallops, 2+ distal pulses (radial, femoral, posterior tibial) in all extremities Abdomen: Soft, there is no tenderness, rigidity, rebound or guarding, no obviousperitoneal signs, no palpable pulsatile abdominal masses, no auscultated abdominal bruit : No CVAT Extremities: No edema Neuro: Patient was somnolent, alert to minor stimuli, has dysarthria, aphasia, right-sided facial droop, right-sided drift initial NIH of 2 for aphasia and dysarthria Upon reassessment patient continued to have aphasia, dysarthria (baseline per family) but there is no obvious facial drooping, drift or other focal neurologicdeficit. NIH now 0. Skin: No rash or lesions noted Const Vital Signs: 10/08/22 12:24 10/08/22 12:24 10/08/22 13:28 Temperature 100 F H Temperature Source Oral Pulse Rate 81 75 Respiratory Rate 18 18 Blood Pressure 163/94 H 157/78 H Blood Pressure Mean 117 104 Pulse Ox 94 96 Oxygen Delivery Method Nasal Cannula Nasal Cannula Nasal Cannula Oxygen Flow Rate (L/min) 2 2 2 MDM MDM MDM Narrative Medical decision making narrative: Chief Complaint: Code stroke External records reviewed: MRI from 2021 shows no acute infarct I considered the following differential diagnosis: Intracranial bleed, CVA, hepatic or metabolic encephalopathy, arrhythmia Patient was initially febrile, hypertensive and hypoxic requiring 2 L of oxygen. She had no respiratory distress to indicate intubation at this time. Initial NIH was 8 for dysarthria, aphasia, right-sided facial droop, right-sided upper arm drift. Patient was taken immediately to CT scanner as per stroke protocol. CT head, CTA of the head and neck were negative for acute intracranial bleeding or large vessel occlusion. Patient is out of tPA candidate given time since onset of symptoms being greater than 4 and half hours. Stroke neurology was consulted. Stroke neurology was able to evaluate the patient by telehealth. Stroke neurology did not think the patient's sensation is secondary to acute CVAon his exam he had NIH of 2 for baseline aphasia and dysarthria. On my repeat evaluation he also had NIH of 2. Patient's symptoms appear to resolve. At thispoint time concern was hypoxia and fever concerning for infectious encephalopathy. Patient's x-ray had evidence of pneumonia. She was given antibiotics. Given hypoxia, evidence of pneumonia and concern for TIA versus CVA patient was admitted to internal medicine for telemetry monitoring, MRI, antibiotics and further oxygen therapy. Discussed with hospitalist Dr. Dalal. Factors affecting care: history of TIA Social determinants of health: Elderly, poor health literacy History obtained from others: EMS, family Shared decision making: I will have a discussion with the patient and or visitors regarding risk/benefits of further testing or admission. They will be made aware of of the risk/benefits inherent in this decision they will be given the opportunity to voice understanding. Consults: Stroke neurology, hospitalist History & Record Review Discussion w/independent historian: EMS personnel and Family Lab Data Attestation: I reviewed the patient's lab results. Lab results narrative: CBC with no leukocytosis, mild anemia, no CMP with hyponatremia, hypokalemia, no anion gap to suggest endorgan hypoperfusion Troponin is negative, no evidence of myocardial ischemia PT, INR, PTT without evidence of coagulopathy Labs: Laboratory Results - last 24 hr 10/08/22 10/08/22 10/08/22 12:30 12:30 12:30 WBC 9.0 RBC 3.48 L Hgb 11.5 L Hct 34.6 L MCV 99.4 H MCH 33.0 H MCHC 33.2 RDW Std Deviation 45.3 H RDW Coeff of Eduadro 12.7 Plt Count 243 MPV 10.1 Immature Gran % (Auto) 0.800 Neut % (Auto) 87.4 H Lymph % (Auto) 4.5 L Hayes % (Auto) 6.4 Eos % (Auto) 0.3 Baso % (Auto) 0.6 Absolute Neuts (auto) 7.9 H Absolute Lymphs (auto) 0.41 L Nucleated RBC % 0 PT 15.1 H INR 1.2 APTT 29.6 Sodium 134 L Potassium 3.4 L Chloride 99 Carbon Dioxide 28.0 Anion Gap 7 BUN 13 Creatinine 0.86 Estim Creat Clear Calc 55.35 Est GFR (MDRD) Af Amer 83 Est GFR (MDRD) Non-Af 69 BUN/Creatinine Ratio 15.1 Glucose 141 H Calcium 8.5 Troponin I High Sens 7 Radiography Diagnostic Testing: Clinical Impression(s) from Imaging Studies Brain CT 10/08/22 12:14 IMPRESSION: Chronic involutional changes of the brain. N.B. : The above Results were Read Back by Manfred Aaron MD to Dr Jamey MD, and understanding confirmed on 10/08/2022 12:30:08 (ET). Electronically Signed: Manfred Aaron MD at 12:31 EDT , ADDENDUM: 10/08/22 1238 IMPRESSION: Chronic involutional changes of the brain. N.B. : The above Results were Read Back by Manfred Aaron MD to Dr Jamey MD, and understanding confirmed on 10/08/2022 12:30:08 (ET). Electronically Signed: Manfred Aaron MD at 12:31 EDT , Head/Neck CTA 10/08/22 12:15 IMPRESSION: Calcific plaque at the origin of the right internal carotid artery causing less than 50% stenosis. N.B. : The above Results were Read Back by Manfred Aaron MD to Dr Jamey MD, and understanding confirmed on 10/08/2022 12:43:31 (ET). Electronically Signed: Manfred Aaron MD at 12:44 EDT , ADDENDUM: 10/08/22 1251 IMPRESSION: Calcific plaque at the origin of the right internal carotid artery causing less than 50% stenosis. N.B. : The above Results were Read Back by Manfred Aaron MD to Dr Jamey MD, and understanding confirmed on 10/08/2022 12:43:31 (ET). Electronically Signed: Manfred Aaron MD at 12:44 EDT , Chest X-Ray 10/08/22 12:52 IMPRESSION: Mild degree of increased markings in the right midlung. Early infiltrate should be ruled out. Electronically Signed: Manfred Aaron MD at 13:26 EDT , EKG Initial EKG: Attestation: I personally reviewed and interpreted this EKG as follows: Comments: EKG with normal sinus rhythm, left axis deviation, normal intervals, no STEMI Discharge Plan Dx/Rx/DC Orders Clinical Impression: Acute alteration in mental status, Nausea & vomiting, Dysarthria, Hypoxia, Pneumonia, Aphasia Disposition Disposition: Acute Care [facility] Discharge Date/Time: 10/08/22 15:37 What to do if you have Problems For any increased pain, shortness of breath, bleeding, nausea or vomiting, chestpain, or any unexpected problems, contact your Primary Care Provider. Call [facility] ([phone]) or report to the closest Emergency Room. Call 911 if necessary. 10/08/22 1545 <Electronically signed by Garry Concepcion DO> Cosigner Signature (if applicable): CC: Dr. Carl Bourgeois, ~ Signed [facility] Work Phone: [phone]) 503-963403-23-2023 History and physical note Author Dr. Dalal [facility] October 08, 2022 3:20pm Note Date/Time October 08, 2022 3:0 7pm [place] [facility] Medical Records Department [address] [place] [id number] H&P Exam - Hospitalist 10/08/22 1500 MR#: [id number] Acct: [id number] Name: YADIRA PEREZ Rep #:[id number] : 1950 72 From: Rajat bolton MD PCP: Dr. Carl Bourgeois DO Status:REG ER Location: ED HPI - General General Date of Admission: 10/08/22 HPI Narrative YADIRA PEREZ, is a 72 F who presents to the hospital with lethargy and weakness as well as concerns for possible stroke. She had a stroke in the past that led to residual expressive aphasia however family noted that the aphasia has gotten worse over the last couple days. She has been having a cough that isnow productive, she went to an urgent care and was started on clindamycin but itappears that she only took 1 days worth. Today in the ER she was found to have a normal white blood cell count but she spiked a temp to 100 and chest x-ray shows a mild right middle lobe infiltrate. Because of her presentation a strokealert was called, [facility] [place] was able to evaluate her and felt that she would benefit from an MRI but otherwise did not feel like they were having an acute stroke. [facility] Medical History (Updated 10/08/22 @ 15:[address] Rajat Dalal MD) Acute bronchitis, unspecified Acute maxillary sinusitis, unspecified Arthritis Carpal tunnel syndrome, right Depressive disorder Dyspnea on exertion Expressive aphasia Hot flashes Hypertension Lupus Migraine headache Osteoarthritis Osteoporosis SLE (systemic lupus erythematosus related syndrome) Stress incontinence in female Vaginal ulcer Home Medications hydrochlorothiazide 25 mg tablet 25 mg PO DAILY BLOOD PRESSURE 11/26/15 [History Last Taken 2 Days Ago ~10/06/22] ibandronate 150 mg tablet 150 mg PO Q30D BONE HEALTH 11/26/15 [History Last Taken 09/16/22] calcium carbonate 500 mg-vitamin D3 10 mcg (400 unit) tablet 1 tab PO TID SUPPLEMENT 04/07/22 [History Last Taken 2 Days Ago ~10/06/22] folic acid 1 mg tablet 1 mg PO BID SUPPLEMENT 04/07/22 [History Last Taken 2 Days Ago ~10/06/22] hydroxychloroquine 200 mg tablet (Plaquenil) 200 mg PO BID RHEUMATOID ARTHRITIS 04/07/22 [History Last Taken 2 Days Ago ~10/06/22] loratadine 10 mg tablet (Allergy Relief (loratadine)) 10 mg PO DAILY PRN allergic symptoms 04/07/22 [History Last Taken Unknown] methotrexate sodium 2.5 mg tablet 15 mg PO ARIAS RHEUMATOID ARTHRITIS 04/07/22 [History Last Taken 10/04/22] potassium chloride 10 mEq tablet,extended release(part/cryst) 10 meq PO BID SUPPLEMENT 04/07/22 [History Last Taken 2 Days Ago ~10/06/22] propranolol 40 mg tablet 40 mg PO DAILY BLOOD PRESSURE 07/08/22 [History Last Taken 2 Days Ago ~10/06/22] aspirin 81 mg tablet,delayed release (Adult Low Dose Aspirin) 81 mg PO DAILY HEART HEALTH 10/08/22 [History Last Taken 2 Days Ago ~10/06/22] buspirone 5 mg tablet 5 mg PO BID ANXIETY 10/08/22 [History Last Taken 2 Days Ago ~10/06/22] clindamycin HCl 300 mg capsule 300 mg PO TID ANTIBIOTIC 10/08/22 [History Last Taken 2 Days Ago ~10/06/22] duloxetine 60 mg capsule,delayed release 60 mg PO BID DEPRESSION 10/08/22 [History Last Taken 2 Days Ago ~10/06/22] ferrous sulfate 325 mg (65 mg iron) tablet 325 mg PO DAILY SUPPLEMENT 10/08/22 [History Last Taken 2 Days Ago ~10/06/22] meclizine 12.5 mg tablet 12.5 mg PO DAILY PRN DIZZINESS 10/08/22 [History Last Taken Unknown] prednisone 10 mg tablet 10 mg PO DAILY PRN STEROID 10/08/22 [History Last Taken Unknown] Allergy/AdvReac Type Severity Reaction Status Date / Time codeine Allergy Rash Verified 10/06/22 11:14 Family History Sister Lupus Mother CVA (cerebral vascular accident) Heart disease Hypertension Father Heart disease Hypertension Brother Heart disease Sister Diabetes Surgical History H/O dilation and curettage H/O tubal ligation History of hernia surgery History of hip surgery History of tonsillectomy Social History adopted: No household members: spouse housing: house number of children: 1 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 pets and animals: Yes Smoking Status: Never smoker second hand exposure: No alcohol intake: never substance use type: does not use seatbelt use: always do you feel safe at home: Yes additional social history: - Riki BROOKS Constitutional Constitutional: Reports fatigue and weakness; Denies chills, fever(s) or malaise Eyes Eyes: Denies blurry vision ENT HEENT: Denies headache(s) or nasal discharge Cardiovascular Cardiovascular: Denies chest pain, dyspnea on exertion or syncope Respiratory/Chest Respiratory/Chest: Denies cough, shortness of breath at rest or shortness of breath with exertion Gastrointestinal Gastrointestinal: Denies constipation, diarrhea, nausea or vomiting Genitourinary Genitourinary: Denies dysuria Neurologic Neurologic: Reports abnormal speech; Denies focal weakness, numbness or tremor(s) Psychiatric Psychiatric: Denies anxiety or depression Vital Signs Vital Signs Vital Signs: 10/08/22 12:24 10/08/22 12:24 10/08/22 13:28 Temperature 100 F H Temperature Source Oral Pulse Rate 81 75 Respiratory Rate 18 18 Blood Pressure 163/94 H 157/78 H Blood Pressure Mean 117 104 Pulse Ox 94 96 Oxygen Delivery Method Nasal Cannula Nasal Cannula Nasal Cannula Oxygen Flow Rate (L/min) 2 2 2 Weight Weight: 187 lb 13.341 oz Body Mass Index (BMI) 30.3 Physical Exam Narrative General: Alert, Oriented x3, Cooperative, No apparent distress, drowsy HEENT: Atraumatic, PERRLA, EOMI, Normocephalic Oral: Moist Mucosa Neck: Supple, No JVD Lungs: Diminished, Normal air movement, rhonchi, No wheeze, No rales Cardiovascular: Regular rate, Regular Rhythm, Normal S1, Normal S2, No murmurs Abdomen: Soft, Non Tender, Non-Distended, No Hepato-splenomegaly Extremities: No edema, Capillary Refill Less than 3 Seconds Skin: No rashes, No breakdown Musculoskeletal: No Tenderness to Palpation of Joints or Extremities Neurological: Motor Exam 5/5 strength throughout, Sensory exam intact to light touch and pain, no drift noted Psych/Mental Status: Normal Affect, Appropriate Results Lab / Micro Data Result Diagrams: 10/08/22 12:30 10/08/22 12:30 Labs: Laboratory Results - last 24 hr 10/08/22 12:30: WBC 9.0, RBC 3.48 L, Hgb 11.5 L, Hct 34.6 L, MCV 99.4 H, MCH 33.0 H, MCHC 33.2, RDW Std Deviation 45.3 H, RDW Coeff of Eduardo 12.7, Plt Count 243, MPV 10.1, Immature Gran % (Auto) 0.800, Neut % (Auto) 87.4 H, Lymph % (Auto) 4.5 L, Hayes % (Auto) 6.4, Eos % (Auto) 0.3, Baso % (Auto) 0.6, Absolute Neuts (auto) 7.9 H, Absolute Lymphs (auto) 0.41 L, Nucleated RBC % 0 10/08/22 12:30: PT 15.1 H, INR 1.2, APTT 29.6 10/08/22 12:30: Sodium 134 L, Potassium 3.4 L, Chloride 99, Carbon Dioxide 28.0,Anion Gap 7, BUN 13, Creatinine 0.86, Estim Creat Clear Calc 55.35, Est GFR (MDRD) Af Amer 83, Est GFR (MDRD) Non-Af 69, BUN/Creatinine Ratio 15.1, Glucose 141 H, Calcium 8.5, Troponin I High Sens 7 Micro: Microbiology 10/08/22 13:30 Nasal Secretion SARS-CoV-2 & FLU Antigen (Rapid) - Final Radiology Impression Brain CT 10/08/22 12:14 IMPRESSION: Chronic involutional changes of the brain. N.B. : The above Results were Read Back by Manfred Aaron MD to Dr Jamey MD, and understanding confirmed on 10/08/2022 12:30:08 (ET). Electronically Signed: Manfred Aaron MD at 12:31 EDT , ADDENDUM: 10/08/22 1238 IMPRESSION: Chronic involutional changes of the brain. N.B. : The above Results were Read Back by Manfred Aaron MD to Dr Jamey MD, and understanding confirmed on 10/08/2022 12:30:08 (ET). Electronically Signed: Manfred Aaron MD at 12:31 EDT , Head/Neck CTA 10/08/22 12:15 IMPRESSION: Calcific plaque at the origin of the right internal carotid artery causing less than 50% stenosis. N.B. : The above Results were Read Back by Manfred Aaron MD to Dr Jamey MD, and understanding confirmed on 10/08/2022 12:43:31 (ET). Electronically Signed: Manfred Aaron MD at 12:44 EDT , ADDENDUM: 10/08/22 1251 IMPRESSION: Calcific plaque at the origin of the right internal carotid artery causing less than 50% stenosis. N.B. : The above Results were Read Back by Manfred Aaron MD to Dr Jamey MD, and understanding confirmed on 10/08/2022 12:43:31 (ET). Electronically Signed: Manfred Aaron MD at 12:44 EDT , Chest X-Ray 10/08/22 12:52 IMPRESSION: Mild degree of increased markings in the right midlung. Early infiltrate should be ruled out. Electronically Signed: Manfred Aaron MD at 13:26 EDT , Assessment & Plan Assessment/Plan (1) Acute alteration in mental status: (2) Pneumonia: (3) Transient ischemic attack: PLAN: Plan 1. TIA versus residual deficits from a previous stroke exacerbated by community-acquired pneumonia with acute hypoxia and metabolic encephalopathy ? We will obtain a sputum culture ? Continue with IV antibiotics ? We will obtain blood cultures ? We will obtain an MRI though her symptomatology has significantly improved ? We will continue with her home on aspirin and statin 2. Lupus ? Continue with Plaquenil and methotrexate ? Stable 3. HTN/history of CVA ? Can continue with her current and her home blood pressure medications ? Blood pressure is stable 4. Anxiety/depression ? Stable ? Can continue with Cymbalta DVT: Lovenox 78 minutes was spent in direct patient care as well as chart review, documentation and collaboration with colleagues Charges/Coding Visit Charges Inpatient E&M: 38587 Init Hosp L3 10/08/22 1520 <Electronically signed by Rajat Dalal MD> Cosigner Signature (if applicable): CC: Dr. Carl Bourgeois, DO; Dr. Rajat Dalal MD~ Signed [facility] Work Phone: Evaluation noteNo assessment information available [facility] Work Phone: Evaluation note* Diagnosis Onset Date Resolution Status Raynaud phenomenon chronic Facet arthritis of lumbosacral region acute [facility] Work Phone: Evaluation note* Diagnosis Onset Date Resolution Status Raynaud phenomenon chronic Facet arthritis of lumbosacral region acute Weakness of both lower extremities resolved [facility] Work Phone: Evaluation note* Diagnosis Onset Date Resolution Status Raynaud phenomenon chronic Facet arthritis of lumbosacral region acute Weakness of both lower extremities resolved Facet arthritis of lumbosacral region acute [facility] Work Phone: Evaluation note* Diagnosis Onset Date Resolution Status Facet arthritis of lumbosacral region acute Weakness of both lower extremities resolved Facet arthritis of lumbosacral region acute Mild cognitive impairment ac [place] Orthostatic hypotension acut e Anxiety chronic Depression chronic 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 Transient ischemic attack re solved [facility] Work Phone: Evaluation note* Diagnosis Onset Date Resolution Status Facet arthritis of lumbosacral region acute Mild cognitive impairment ac [place] Orthostatic hypotension acut e Anxiety chronic Depression chronic 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 Transient ischemic attack re solved [facility] Work Phone: Evaluation note* Diagnosis Onset Date Resolution Status Mild cognitive impairment ac [place] Orthostatic hypotension acut e Anxiety chronic Depression chronic 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 Transient ischemic attack re solved Acute bronchitis, unspecified acute Acute maxillary sinusitis, unspecified acute Acute alteration in mental status acute Dysarthria acute Hypoxia acute Nausea & vomiting acute Pneumonia acute Transient ischemic attack re solved [facility] Work Phone: Evaluation note* Diagnosis Onset Date Resolution Status Mild cognitive impairment ac [place] Orthostatic hypotension acut e Anxiety chronic Depression chronic 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 Transient ischemic attack re solved Acute bronchitis, unspecified acute Acute maxillary sinusitis, unspecified acute Acute alteration in mental status acute Aphasia acute Dysarthria acute Hypoxia acute Nausea & vomiting acute Pneumonia acute Transient ischemic attack re solved [facility] Work Phone: Evaluation note* Diagnosis Onset Date Resolution Status Mild cognitive impairment ac [place] Orthostatic hypotension acut e Anxiety chronic Depression chronic 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 Acute bronchitis, unspecified acute Acute maxillary sinusitis, unspecified acute Aphasia acute Dysarthria acute Hypoxia acute Nausea & vomiting acute Acute alteration in mental status resolved History of viral illness acu te [facility] Work Phone: Evaluation note* Diagnosis Onset Date Resolution Status Acute bronchitis, unspecified acute Acute maxillary sinusitis, unspecified acute Aphasia acute Dysarthria acute Hypoxia acute Nausea & vomiting acute Acute alteration in mental status resolved Transient ischemic attack re solved History of viral illness acu te Anxiety chronic Depression chronic Mild cognitive impairment ch ronic Multifactorial gait disorder chronic Orthostatic hypotension 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 [place] Transient ischemic attack re solved [facility] Work Phone: Evaluation note* Diagnosis Onset Date Resolution Status Acute bronchitis, unspecified acute Acute maxillary sinusitis, unspecified acute Aphasia acute Dysarthria acute Hypoxia acute Nausea & vomiting acute Acute alteration in mental status resolved Transient ischemic attack re solved History of viral illness acu te Anxiety chronic Depression chronic Mild cognitive impairment ch ronic Multifactorial gait disorder chronic Orthostatic hypotension 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 [place] Transient ischemic attack re solved Fatigue chronic [facility] Work Phone: Evaluation note* Diagnosis Onset Date Resolution Status Acute bronchitis, unspecified acute Acute maxillary sinusitis, unspecified acute Aphasia acute Dysarthria acute Hypoxia acute Nausea & vomiting acute Acute alteration in mental status resolved Transient ischemic attack re solved History of viral illness acu te Anxiety chronic Depression chronic Mild cognitive impairment ch ronic Multifactorial gait disorder chronic Orthostatic hypotension 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 [employer] Transient ischemic attack re solved Fatigue chronic Fatigue chronic [facility] Work Phone: Evaluation note* Diagnosis Onset Date Resolution Status History of viral illness acu te Anxiety chronic Depression chronic Mild cognitive impairment ch ronic Multifactorial gait disorder chronic Orthostatic hypotension 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 [employer] Transient ischemic attack re solved Fatigue chronic Fatigue chronic [facility] Work Phone: Evaluation note* Diagnosis Onset Date Resolution Status Fatigue chronic Fatigue chronic Anisocoria acute Dysarthria acute Facet arthritis of lumbosacral region acute Hypersomnolence acute Inflammatory polyarthropathy acute Lumbar canal stenosis acute Macrocytic anemia acute Status post lumbar spine [place] for decompression of spinal cord acute Fatigue chronic Mild cognitive impairment ch ronic Multifactorial gait disorder chronic Osteoarthritis chronic Peripheral vestibulopathy ch ronic Vertigo chronic [facility] Work Phone: Evaluation note* Diagnosis Onset Date Resolution Status Fatigue chronic Fatigue chronic Facet arthritis of lumbosacral region acute Hypersomnolence acute Inflammatory polyarthropathy acute Lumbar canal stenosis acute Status post lumbar spine [place] for decompression of spinal cord acute Fatigue chronic Mild cognitive impairment ch ronic Multifactorial gait disorder chronic Osteoarthritis chronic Peripheral vestibulopathy ch ronic Dysarthria resolved Anxiety chronic Fatigue chronic Mild cognitive impairment ch ronic Multifactorial gait disorder chronic [facility] Work Phone: Evaluation note* Diagnosis Onset Date Resolution Status Facet arthritis of lumbosacral region acute Hypersomnolence acute Inflammatory polyarthropathy acute Lumbar canal stenosis acute Status post lumbar spine [place] for decompression of spinal cord acute Fatigue chronic Mild cognitive impairment ch ronic Multifactorial gait disorder chronic Osteoarthritis chronic Peripheral vestibulopathy ch ronic Dysarthria resolved Anxiety chronic Fatigue chronic Mild cognitive impairment ch ronic Multifactorial gait disorder chronic Fatigue chronic MARTHA (obstructive sleep apnea) acute Obesity chronic Fatigue chronic [facility] Work Phone: Evaluation note* Diagnosis Onset Date Resolution Status Fatigue chronic MARTHA (obstructive sleep apnea) acute Fatigue chronic Anxiety chronic Fatigue chronic Mild cognitive impairment ch ronic Multifactorial gait disorder chronic Fatigue chronic [facility] Work Phone: Evaluation note* Diagnosis Onset Date Resolution Status MARTHA (obstructive sleep apnea) acute Fatigue chronic Anxiety chronic Fatigue chronic Mild cognitive impairment ch ronic Multifactorial gait disorder chronic Fatigue chronic Fatigue chronic [facility] Work Phone: Evaluation note* Diagnosis Onset Date Resolution Status MARTHA (obstructive sleep apnea) chronic Fatigue chronic Anxiety chronic Fatigue chronic Mild cognitive impairment ch ronic Multifactorial gait disorder chronic Fatigue chronic Fatigue chronic Obesity chronic MARTHA (obstructive sleep apnea) chronic [facility] Work Phone: History and physical note Author Dr. Dalal [facility] October 08, 2022 3:20pm Note Date/Time October 08, 2022 3:[address] [facility] Medical Records Department [address] [place] [id number] H&P Exam - Hospitalist 10/08/22 1500 MR#: [id number] Acct: [id number] Name: YADIRA PEREZ Rep #:[id number] : 1950 72 From: Rajat bolton MD PCP: Dr. Carl Bourgeois, DO Status:REG ER Location: ED HPI - General General Date of Admission: 10/08/22 HPI Narrative YADIRA PEREZ, is a 72 F who presents to the hospital with lethargy and weakness as well as concerns for possible stroke. She had a stroke in the past that led to residual expressive aphasia however family noted that the aphasia has gotten worse over the last couple days. She has been having a cough that isnow productive, she went to an urgent care and was started on clindamycin but itappears that she only took 1 days worth. Today in the ER she was found to have a normal white blood cell count but she spiked a temp to 100 and chest x-ray shows a mild right middle lobe infiltrate. Because of her presentation a strokealert was called, [facility] [place] was able to evaluate her and felt that she would benefit from an MRI but otherwise did not feel like they were having an acute stroke. [facility] Medical History (Updated 10/08/22 @ 15:[address] Rajat Dalal MD) Acute bronchitis, unspecified Acute maxillary sinusitis, unspecified Arthritis Carpal tunnel syndrome, right Depressive disorder Dyspnea on exertion Expressive aphasia Hot flashes Hypertension Lupus Migraine headache Osteoarthritis Osteoporosis SLE (systemic lupus erythematosus related syndrome) Stress incontinence in female Vaginal ulcer Home Medications hydrochlorothiazide 25 mg tablet 25 mg PO DAILY BLOOD PRESSURE 11/26/15 [History Last Taken 2 Days Ago ~10/06/22] ibandronate 150 mg tablet 150 mg PO Q30D BONE HEALTH 11/26/15 [History Last Taken 09/16/22] calcium carbonate 500 mg-vitamin D3 10 mcg (400 unit) tablet 1 tab PO TID SUPPLEMENT 04/07/22 [History Last Taken 2 Days Ago ~10/06/22] folic acid 1 mg tablet 1 mg PO BID SUPPLEMENT 04/07/22 [History Last Taken 2 Days Ago ~10/06/22] hydroxychloroquine 200 mg tablet (Plaquenil) 200 mg PO BID RHEUMATOID ARTHRITIS 04/07/22 [History Last Taken 2 Days Ago ~10/06/22] loratadine 10 mg tablet (Allergy Relief (loratadine)) 10 mg PO DAILY PRN allergic symptoms 04/07/22 [History Last Taken Unknown] methotrexate sodium 2.5 mg tablet 15 mg PO ARIAS RHEUMATOID ARTHRITIS 04/07/22 [History Last Taken 10/04/22] potassium chloride 10 mEq tablet,extended release(part/cryst) 10 meq PO BID SUPPLEMENT 04/07/22 [History Last Taken 2 Days Ago ~10/06/22] propranolol 40 mg tablet 40 mg PO DAILY BLOOD PRESSURE 07/08/22 [History Last Taken 2 Days Ago ~10/06/22] aspirin 81 mg tablet,delayed release (Adult Low Dose Aspirin) 81 mg PO DAILY HEART HEALTH 10/08/22 [History Last Taken 2 Days Ago ~10/06/22] buspirone 5 mg tablet 5 mg PO BID ANXIETY 10/08/22 [History Last Taken 2 Days Ago ~10/06/22] clindamycin HCl 300 mg capsule 300 mg PO TID ANTIBIOTIC 10/08/22 [History Last Taken 2 Days Ago ~10/06/22] duloxetine 60 mg capsule,delayed release 60 mg PO BID DEPRESSION 10/08/22 [History Last Taken 2 Days Ago ~10/06/22] ferrous sulfate 325 mg (65 mg iron) tablet 325 mg PO DAILY SUPPLEMENT 10/08/22 [History Last Taken 2 Days Ago ~10/06/22] meclizine 12.5 mg tablet 12.5 mg PO DAILY PRN DIZZINESS 10/08/22 [History Last Taken Unknown] prednisone 10 mg tablet 10 mg PO DAILY PRN STEROID 10/08/22 [History Last Taken Unknown] Allergy/AdvReac Type Severity Reaction Status Date / Time codeine Allergy Rash Verified 10/06/22 11:14 Family History Sister Lupus Mother CVA (cerebral vascular accident) Heart disease Hypertension Father Heart disease Hypertension Brother Heart disease Sister Diabetes Surgical History H/O dilation and curettage H/O tubal ligation History of hernia surgery History of hip surgery History of tonsillectomy Social History adopted: No household members: spouse housing: house number of children: 1 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 pets and animals: Yes Smoking Status: Never smoker second hand exposure: No alcohol intake: never substance use type: does not use seatbelt use: always do you feel safe at home: Yes additional social history: - Riki ROS Constitutional Constitutional: Reports fatigue and weakness; Denies chills, fever(s) or malaise Eyes Eyes: Denies blurry vision ENT HEENT: Denies headache(s) or nasal discharge Cardiovascular Cardiovascular: Denies chest pain, dyspnea on exertion or syncope Respiratory/Chest Respiratory/Chest: Denies cough, shortness of breath at rest or shortness of breath with exertion Gastrointestinal Gastrointestinal: Denies constipation, diarrhea, nausea or vomiting Genitourinary Genitourinary: Denies dysuria Neurologic Neurologic: Reports abnormal speech; Denies focal weakness, numbness or tremor(s) Psychiatric Psychiatric: Denies anxiety or depression Vital Signs Vital Signs Vital Signs: 10/08/22 12:24 10/08/22 12:24 10/08/22 13:28 Temperature 100 F H Temperature Source Oral Pulse Rate 81 75 Respiratory Rate 18 18 Blood Pressure 163/94 H 157/78 H Blood Pressure Mean 117 104 Pulse Ox 94 96 Oxygen Delivery Method Nasal Cannula Nasal Cannula Nasal Cannula Oxygen Flow Rate (L/min) 2 2 2 Weight Weight: 187 lb 13.341 oz Body Mass Index (BMI) 30.3 Physical Exam Narrative General: Alert, Oriented x3, Cooperative, No apparent distress, drowsy HEENT: Atraumatic, PERRLA, EOMI, Normocephalic Oral: Moist Mucosa Neck: Supple, No JVD Lungs: Diminished, Normal air movement, rhonchi, No wheeze, No rales Cardiovascular: Regular rate, Regular Rhythm, Normal S1, Normal S2, No murmurs Abdomen: Soft, Non Tender, Non-Distended, No Hepato-splenomegaly Extremities: No edema, Capillary Refill Less than 3 Seconds Skin: No rashes, No breakdown Musculoskeletal: No Tenderness to Palpation of Joints or Extremities Neurological: Motor Exam 5/5 strength throughout, Sensory exam intact to light touch and pain, no drift noted Psych/Mental Status: Normal Affect, Appropriate Results Lab / Micro Data Result Diagrams: 10/08/22 12:30 10/08/22 12:30 Labs: Laboratory Results - last 24 hr 10/08/22 12:30: WBC 9.0, RBC 3.48 L, Hgb 11.5 L, Hct 34.6 L, MCV 99.4 H, MCH 33.0 H, MCHC 33.2, RDW Std Deviation 45.3 H, RDW Coeff of Eduardo 12.7, Plt Count 243, MPV 10.1, Immature Gran % (Auto) 0.800, Neut % (Auto) 87.4 H, Lymph % (Auto) 4.5 L, Hayes % (Auto) 6.4, Eos % (Auto) 0.3, Baso % (Auto) 0.6, Absolute Neuts (auto) 7.9 H, Absolute Lymphs (auto) 0.41 L, Nucleated RBC % 0 10/08/22 12:30: PT 15.1 H, INR 1.2, APTT 29.6 10/08/22 12:30: Sodium 134 L, Potassium 3.4 L, Chloride 99, Carbon Dioxide 28.0,Anion Gap 7, BUN 13, Creatinine 0.86, Estim Creat Clear Calc 55.35, Est GFR (MDRD) Af Amer 83, Est GFR (MDRD) Non-Af 69, BUN/Creatinine Ratio 15.1, Glucose 141 H, Calcium 8.5, Troponin I High Sens 7 Micro: Microbiology 10/08/22 13:30 Nasal Secretion SARS-CoV-2 & FLU Antigen (Rapid) - Final Radiology Impression Brain CT 10/08/22 12:14 IMPRESSION: Chronic involutional changes of the brain. N.B. : The above Results were Read Back by Manfred Aaron MD to Dr Jamey MD, and understanding confirmed on 10/08/2022 12:30:08 (ET). Electronically Signed: Manfred Aaron MD at 12:31 EDT , ADDENDUM: 10/08/22 1238 IMPRESSION: Chronic involutional changes of the brain. N.B. : The above Results were Read Back by Manfred Aaron MD to Dr Jamey MD, and understanding confirmed on 10/08/2022 12:30:08 (ET). Electronically Signed: Manfred Aaron MD at 12:31 EDT , Head/Neck CTA 10/08/22 12:15 IMPRESSION: Calcific plaque at the origin of the right internal carotid artery causing less than 50% stenosis. N.B. : The above Results were Read Back by Manfred Aaron MD to Dr Jamey MD, and understanding confirmed on 10/08/2022 12:43:31 (ET). Electronically Signed: Manfred Aaron MD at 12:44 EDT , ADDENDUM: 10/08/22 1251 IMPRESSION: Calcific plaque at the origin of the right internal carotid artery causing less than 50% stenosis. N.B. : The above Results were Read Back by Manfred Aaron MD to Dr Jamey MD, and understanding confirmed on 10/08/2022 12:43:31 (ET). Electronically Signed: Manfred Aaron MD at 12:44 EDT , Chest X-Ray 10/08/22 12:52 IMPRESSION: Mild degree of increased markings in the right midlung. Early infiltrate should be ruled out. Electronically Signed: Manfred Aaron MD at 13:26 EDT , Assessment & Plan Assessment/Plan (1) Acute alteration in mental status: (2) Pneumonia: (3) Transient ischemic attack: PLAN: Plan 1. TIA versus residual deficits from a previous stroke exacerbated by community-acquired pneumonia with acute hypoxia and metabolic encephalopathy ? We will obtain a sputum culture ? Continue with IV antibiotics ? We will obtain blood cultures ? We will obtain an MRI though her symptomatology has significantly improved ? We will continue with her home on aspirin and statin 2. Lupus ? Continue with Plaquenil and methotrexate ? Stable 3. HTN/history of CVA ? Can continue with her current and her home blood pressure medications ? Blood pressure is stable 4. Anxiety/depression ? Stable ? Can continue with Cymbalta DVT: Lovenox 78 minutes was spent in direct patient care as well as chart review, documentation and collaboration with colleagues Charges/Coding Visit Charges Inpatient E&M: 65030 Init Hosp L3 10/08/22 1520 <Electronically signed by Rajat Dalal MD> Cosigner Signature (if applicable): CC: Dr. Carl Bourgeois, DO; Dr. Rajat Dalal MD~ Signed [facility] Work Phone: Reason for referral (narrative)No reason for referral information [facility] Work Phone: Summary Purpose Family History No Family History Records Found Relationship Condition Age at Onset Recorded Date/[place] sister Lupus Unknown mother Cerebrovascular accident (CVA) Unknown Cardiac disease Unknown father Cardiac disease Unknown brother Cardiac disease Unknown sister Diabetes mellitus Unknown Relationship Condition Age at Onset Recorded Date/[place] sister Lupus Unknown mother Cerebrovascular accident (CVA) Unknown Cardiac disease Unknown Hypertension Unknown father Cardiac disease Unknown brother Cardiac disease Unknown sister Diabetes mellitus Unknown Advance Directives No Advanced Directives Records Found Advance Directive Response Recorded Date/ Time Advance Directives No January 05 6:07pm Living Will No November 24, 2020 11 :46am Power of Elementary Math Tutor No November 24, 2020 11:46am Advance Directive Response Recorded Date/ Time Advance Directives No January 05 6:07pm Living Will No April 29 12:02pm Power of Elementary Math Tutor No 2022 12:02pm Advance Directive Response Recorded Date/ Time Advance Directives No January 05 6:07pm Living Will No April 29 2:29pm Power of Elementary Math Tutor No 2022 2:29pm Advance Directive Response Recorded Date/ Time Advance Directives No January 05 5:07pm Living Will No April 29 1:29pm Power of Elementary Math Tutor No 2022 1:29pm Advance Directive Response Recorded Date/ Time Advance Directives No January 05 6:07pm Living Will No October 08, 2022 12:39pm Power of Elementary Math Tutor No October 08 12:39pm Advance Directive Response Recorded Date/ Time Advance Directives No January 05 6:07pm Living Will No October 08, 2022 3:55pm Power of Elementary Math Tutor No October 08 3:55pm Advance Directive Response Recorded Date/ Time Advance Directives No December 02 9:08am Living Will No December 02, 2022 9 :08am Power of Elementary Math Tutor No December 02, 2022 9:08am Advance Directive Response Recorded Date/ Time Advance Directives No December 02 9:08am Living Will No February 22, 2023 2:32am Power of Elementary Math Tutor No February 22 2:32am Advance Directive Response Recorded Date/ Time Advance Directives No December 02 9:08am Living Will No February 25 12:02pm Power of Elementary Math Tutor No February 25, 023 12:02pm Advance Directive Response Recorded Date/ Time Advance Directives No December 02 8:08am Living Will No February 25 11:02am Power of Elementary Math Tutor No February 25, 023 11:02am Advance Directive Response Recorded Date/ Time Living Will No February 25 12:02pm Do you have a Healthcare Power of Elementary Math Tutor? No February 25, 2023 12:02pm Living Will No April 09, 2024 12:36pm Do you have a Healthcare Power of Elementary Math Tutor? No April 09, 2024 12:36pm Living Will No July 26 11:30am Do you have a Healthcare Power of Elementary Math Tutor? No July 26, 2024 11:30am Advance Directives No December 02 9:08am Advance Directive Response Recorded Date/ Time Living Will No February 25 12:02pm Do you have a Healthcare Power of Elementary Math Tutor? No February 25, 2023 12:02pm Living Will No April 09, 2024 12:36pm Do you have a Healthcare Power of Elementary Math Tutor? No April 09, 2024 12:36pm Advance Directives No December 02 9:08am Advance Directive Response Recorded Date/ Time Living Will No April 09, 2024 12:36pm Do you have a Healthcare Power of Elementary Math Tutor? No April 09, 2024 12:36pm Advance Directives No December 02 9:08am Chief Complaint and Reason for Visit Chief Complaint S/O-ARTHRITIS/PAIN- COPY PCP Spinal stenosis, lumbar region without neurogenic Chief Complaint S/O-ARTHRITIS/PAIN- COPY PCP Spinal stenosis, lumbar region without neurogenic S/O- PAIN COPY PCP Chief Complaint Spinal stenosis, lum bar region without neurogenic S/O- PAIN COPY PCP Chief Complaint PVD BILAT LOWER EXT LEG PAIN AND WEAKNESS W/ LBP AND DDD Chief Complaint PVD BILAT LOWER EXT LEG PAIN AND WEAKNESS W/ LBP AND DDD PAD LUMBER SPINE LEG Reason for Visit Raynaud phenomenon Facet arthritis of lumbosacral region Chief Complaint PVD BILAT LOWER EXT LEG PAIN AND WEAKNESS W/ LBP AND DDD PAD LUMBER SPINE APHASIA / LANGUAGE / TIA LEG APHASIA / LANGUAGE / TIA DYSARTHRIA / INFLAMMATORY POLYARTHROPATHY /RX HERE Reason for Visit Raynaud phenomenon Facet arthritis of lumbosacral region Weakness of both lower extremities Chief Complaint PVD BILAT LOWER EXT LEG PAIN AND WEAKNESS W/ LBP AND DDD PAD LUMBER SPINE APHASIA / LANGUAGE / TIA LEG APHASIA / LANGUAGE / TIA DYSARTHRIA / INFLAMMATORY POLYARTHROPATHY /RX HERE INFLAMMATORY POLYARTHROPATHY /RX HERE Unspecified speech disturbances Reason for Visit Raynaud phenomenon Facet arthritis of lumbosacral region Weakness of both lower extremities Chief Complaint PVD BILAT LOWER EXT LEG PAIN AND WEAKNESS W/ LBP AND DDD PAD LUMBER SPINE APHASIA / LANGUAGE / TIA LEG APHASIA / LANGUAGE / TIA DYSARTHRIA / INFLAMMATORY POLYARTHROPATHY /RX HERE Unspecified speech disturbances SCREENING Lumbar spine INFLAMMATORY POLYARTHROPATHY /RX HERE Reason for Visit Raynaud phenomenon Facet arthritis of lumbosacral region Weakness of both lower extremities Facet arthritis of lumbosacral region Chief Complaint LUMBER SPINE APHASIA / LANGUAGE / TIA LEG APHASIA / LANGUAGE / TIA DYSARTHRIA / INFLAMMATORY POLYARTHROPATHY /RX HERE Unspecified speech disturbances SCREENING Lumbar spine SLURRED SPEECH/INNER EAR IMBALANCE/POSSIBLE MS VERTIGO PAIN- COPY PCP GAIT DISORDER EORDER INFLAMMATORY POLYARTHROPATHY /RX HERE Reason for Visit Facet arthritis of l umbosacral region Weakness of both lower extremities Facet arthritis of lumbosacral region Mild cognitive impairment Orthostatic hypotension Anxiety Depression Multifactorial gait disorder Peripheral vestibulopathy Vertigo Transient ischemic attack Chief Complaint SCREENING Lumbar spine SLURRED SPEECH/INNER EAR IMBALANCE/POSSIBLE MS VERTIGO PAIN- COPY PCP GAIT DISORDER EORDER 30 DAY MONITOR INFLAMMATORY POLYARTHROPATHY /RX HERE Reason for Visit Facet arthritis of l umbosacral region Mild cognitive impairment Orthostatic hypotension Anxiety Depression Multifactorial gait disorder Peripheral vestibulopathy Vertigo Transient ischemic attack Chief Complaint SLURRED SPEECH/INNER EAR IMBALANCE/POSSIBLE MS VERTIGO PAIN- COPY PCP GAIT DISORDER EORDER 30 DAY MONITOR INFLAMMATORY POLYARTHROPATHY /RX HERE COUGH/CONGESTION/SORE THROAT PNEUMONIA WITH TIA stroke alert Reason for Visit Mild cognitive impai rment Orthostatic hypotension Anxiety Depression Multifactorial gait disorder Peripheral vestibulopathy Vertigo Transient ischemic attack Acute bronchitis, unspecified Acute maxillary sinusitis, unspecified Acute alteration in mental status Dysarthria Hypoxia Nausea & vomiting Pneumonia Transient ischemic attack Chief Complaint SLURRED SPEECH/INNER EAR IMBALANCE/POSSIBLE MS VERTIGO PAIN- COPY PCP GAIT DISORDER EORDER 30 DAY MONITOR INFLAMMATORY POLYARTHROPATHY /RX HERE COUGH/CONGESTION/SORE THROAT PNEUMONIA WITH TIA stroke alert PNEUMONIA WITH TIA Reason for Visit Mild cognitive impai rment Orthostatic hypotension Anxiety Depression Multifactorial gait disorder Peripheral vestibulopathy Vertigo Transient ischemic attack Acute bronchitis, unspecified Acute maxillary sinusitis, unspecified Acute alteration in mental status Aphasia Dysarthria Hypoxia Nausea & vomiting Pneumonia Transient ischemic attack Chief Complaint SLURRED SPEECH/INNER EAR IMBALANCE/POSSIBLE MS VERTIGO PAIN- COPY PCP GAIT DISORDER EORDER 30 DAY MONITOR COUGH/CONGESTION/SORE THROAT PNEUMONIA WITH TIA stroke alert PNEUMONIA WITH TIA PNEUMONIA WITH TIA PAIN- COPY PCP Hospital FU INFLAMMATORY POLYARTHROPATHY /RX HERE Reason for Visit Mild cognitive impai rment Orthostatic hypotension Anxiety Depression Multifactorial gait disorder Peripheral vestibulopathy Vertigo Acute bronchitis, unspecified Acute maxillary sinusitis, unspecified Aphasia Dysarthria Hypoxia Nausea & vomiting Acute alteration in mental status History of viral illness Chief Complaint 30 DAY MONITOR COUGH/CONGESTION/SORE THROAT PNEUMONIA WITH TIA stroke alert PNEUMONIA WITH TIA PNEUMONIA WITH TIA PAIN- COPY PCP Hospital FU 4MO INFLAMMATORY POLYARTHROPATHY /RX HERE Reason for Visit Acute bronchitis, un specified Acute maxillary sinusitis, unspecified Aphasia Dysarthria Hypoxia Nausea & vomiting Acute alteration in mental status Transient ischemic attack History of viral illness Anxiety Depression Mild cognitive impairment Multifactorial gait disorder Orthostatic hypotension Transient ischemic attack Chief Complaint COUGH/CONGESTION/SOR E THROAT PNEUMONIA WITH TIA stroke alert PNEUMONIA WITH TIA PNEUMONIA WITH TIA PAIN- COPY PCP Hospital FU 4MO INFLAMMATORY POLYARTHROPATHY /RX HERE B12 inject B12 Reason for Visit Acute bronchitis, un specified Acute maxillary sinusitis, unspecified Aphasia Dysarthria Hypoxia Nausea & vomiting Acute alteration in mental status Transient ischemic attack History of viral illness Anxiety Depression Mild cognitive impairment Multifactorial gait disorder Orthostatic hypotension Transient ischemic attack Fatigue Chief Complaint COUGH/CONGESTION/SOR E THROAT PNEUMONIA WITH TIA stroke alert PNEUMONIA WITH TIA PNEUMONIA WITH TIA PAIN- COPY PCP Hospital FU 4MO INFLAMMATORY POLYARTHROPATHY /RX HERE B12 inject B12 Reason for Visit Acute bronchitis, un specified Acute maxillary sinusitis, unspecified Aphasia Dysarthria Hypoxia Nausea & vomiting Acute alteration in mental status Transient ischemic attack History of viral illness Anxiety Depression Mild cognitive impairment Multifactorial gait disorder Orthostatic hypotension Transient ischemic attack Fatigue Fatigue Chief Complaint PAIN- COPY PCP Hospital FU 4MO INFLAMMATORY POLYARTHROPATHY /RX HERE B12 inject B12 B12 WEAKNESS Reason for Visit History of viral ill ness Anxiety Depression Mild cognitive impairment Multifactorial gait disorder Orthostatic hypotension Transient ischemic attack Fatigue Fatigue Chief Complaint INFLAMMATORY POLYART HROPATHY /RX HERE B12 inject B12 B12 WEAKNESS DEBILITY DEBILITY DEBILITY DEBILITY DEBILITY DEBILITY DEBILITY DEBILITY Reason for Visit Fatigue Fatigue Anisocoria Dysarthria Facet arthritis of lumbosacral region Hypersomnolence Inflammatory polyarthropathy Lumbar canal stenosis Macrocytic anemia Status post lumbar spine surgery for decompression of spinal cord Fatigue Mild cognitive impairment Multifactorial gait disorder Osteoarthritis Peripheral vestibulopathy Vertigo Chief Complaint B12 B12 WEAKNESS DEBILITY DEBILITY DEBILITY DEBILITY DEBILITY DEBILITY DEBILITY DEBILITY 4 M FU HYPERSOMNIA Reason for Visit Fatigue Fatigue Facet arthritis of lumbosacral region Hypersomnolence Inflammatory polyarthropathy Lumbar canal stenosis Status post lumbar spine surgery for decompression of spinal cord Fatigue Mild cognitive impairment Multifactorial gait disorder Osteoarthritis Peripheral vestibulopathy Dysarthria Anxiety Fatigue Mild cognitive impairment Multifactorial gait disorder Chief Complaint WEAKNESS DEBILITY DEBILITY DEBILITY DEBILITY DEBILITY DEBILITY DEBILITY DEBILITY 4 M FU HYPERSOMNIA PAIN- COPY PCP B12 inject Sleep problems B12 inject SCREEN LUMBAR FUSION L4 L5. RX TO BE FAXED Reason for Visit Facet arthritis of l umbosacral region Hypersomnolence Inflammatory polyarthropathy Lumbar canal stenosis Status post lumbar spine surgery for decompression of spinal cord Fatigue Mild cognitive impairment Multifactorial gait disorder Osteoarthritis Peripheral vestibulopathy Dysarthria Anxiety Fatigue Mild cognitive impairment Multifactorial gait disorder Fatigue MARTHA (obstructive sleep apnea) Obesity Fatigue Chief Complaint B12 inject SORE THROAT, COUGH, CONGESTED, THROWING UP 2 M FU B12 inject 5 MO FU B12 inject PAIN- COPY PCP LUMBAR FUSION L4 L5. RX TO BE FAXED Reason for Visit Fatigue MARTHA (obstructive sleep apnea) Fatigue Anxiety Fatigue Mild cognitive impairment Multifactorial gait disorder Fatigue Chief Complaint 2 M FU B12 inject 5 MO FU B12 inject PAIN- COPY PCP B12 inject LUMBAR FUSION L4 L5. RX TO BE FAXED Reason for Visit MARTHA (obstructive sle ep apnea) Fatigue Anxiety Fatigue Mild cognitive impairment Multifactorial gait disorder Fatigue Fatigue Chief Complaint 2 M FU B12 inject 5 MO FU B12 inject PAIN- COPY PCP B12 inject LUMBAR FUSION L4 L5. RX TO BE FAXED 3 M FU MARTHA Reason for Visit MARTHA (obstructive sle ep apnea) Fatigue Anxiety Fatigue Mild cognitive impairment Multifactorial gait disorder Fatigue Fatigue Obesity MARTHA (obstructive sleep apnea) Chief Complaint Admit Date LABWORK June 21, 2024 3 :50pm SCREENING June 23, 2024 1 :49pm B12 inject June 26, 2024 1 2:53pm Amb Documentation June 28, 2024 9:23am GAIT/BACK RX HERE REQUEST RADHA July 13, 2024 10:30am 4 M FU/B12 INJECT July 31, 2024 1 0:27am left hip pain July 31, 2024 1 2:32pm OSTEOPOROSIS August 09, 2024 9 :18am B12 September 19, 2024 1:10 pm FX OF MCP R HAND,RX HERE, September 20 10:30am Pre Colon September 27, 2024 9:5 5am PAIN- COPY PCP September 27, 2024 11: 06am Reason for Visit Admit Date Fatigue June 26, 2024 1 2:53pm Personal history of colonic polyps Janua ry 2024 7:33am Abnormality of gait and mobility July 31, 2024 10:27am Fibromyalgia July 31, 2024 1 0:27am Fusion of lumbar spine July 31 10:27am Left hip pain July 31, 2024 1 0:27am Anxiety July 31, 2024 1 0:27am Fatigue July 31, 2024 1 0:27am Mild cognitive impairment July 31, 2024 10:27am Fatigue September 19, 2024 1:10 pm Diverticulosis September 27, 2024 9:5 5am Personal history of colonic polyps September 27, 2024 9:55am Chronic constipation September 27, 2024 9: 55am Chief Complaint Admit Date 4 M FU/B12 INJECT July 31, 2024 1 0:27am left hip pain July 31, 2024 1 2:32pm OSTEOPOROSIS August 09, 2024 9 :18am B12 September 19, 2024 1:10 pm FX OF MCP R HAND,RX HERE, September 20 10:30am Pre Colon September 27, 2024 9:5 5am PAIN- COPY PCP September 27, 2024 11: 06am B12 inject October 19, 2024 1:31 pm EORDER-LABS/ LOW BACK PAIN-XRAY November 142024 1:35pm B12 inject November 20, 2024 12:59p m 6 M FU November 21, 2024 11:01a m Reason for Visit Admit Date Personal history of colonic polyps Jandamari ry 2024 7:33am Abnormality of gait and mobility July 31, 2024 10:27am Fibromyalgia July 31, 2024 1 0:27am Fusion of lumbar spine July 31 10:27am Left hip pain July 31, 2024 1 0:27am Anxiety July 31, 2024 1 0:27am Fatigue July 31, 2024 1 0:27am Mild cognitive impairment July 31, 2024 10:27am Fatigue September 19, 2024 1:10 pm Diverticulosis September 27, 2024 9:5 5am Personal history of colonic polyps September 27, 2024 9:55am Chronic constipation September 27, 2024 9: 55am Fatigue October 19, 2024 1:31 pm Fatigue November 20, 2024 12:59p m Obesity November 21, 2024 11:01a m MARTHA (obstructive sleep apnea) November 21, 025 11:01am Chief Complaint Admit Date 4 M FU/B12 INJECT July 31, 2024 1 0:27am left hip pain July 31, 2024 1 2:32pm OSTEOPOROSIS August 09, 2024 9 :18am B12 September 19, 2024 1:10 pm FX OF MCP R HAND,RX HERE, September 20 10:30am Pre Colon September 27, 2024 9:5 5am PAIN- COPY PCP September 27, 2024 11: 06am B12 inject October 19, 2024 1:31 pm EORDER-LABS/ LOW BACK PAIN-XRAY November 142024 1:35pm B12 inject November 20, 2024 12:59p m 6 M FU November 21, 2024 11:01a m 4 M FU November 28, 2024 10:24 am Reason for Visit Admit Date Abnormality of gait and mobility July 31, 2024 10:27am Fibromyalgia July 31, 2024 1 0:27am Fusion of lumbar spine July 31 10:27am Left hip pain July 31, 2024 1 0:27am Anxiety July 31, 2024 1 0:27am Fatigue July 31, 2024 1 0:27am Mild cognitive impairment July 31, 2024 10:27am Fatigue September 19, 2024 1:10 pm Diverticulosis September 27, 2024 9:5 5am Personal history of colonic polyps September 27, 2024 9:55am Chronic constipation September 27, 2024 9: 55am Fatigue October 19, 2024 1:31 pm Fatigue November 20, 2024 12:59p m Obesity November 21, 2024 11:01a m MARTHA (obstructive sleep apnea) November 21 11:01am Abnormality of gait and mobility November 10:24am Fibromyalgia November 28, 2024 10:24 am Fusion of lumbar spine November 28, 2024 10 :24am Left hip pain November 28, 2024 10:24 am Anxiety November 28, 2024 10:24 am Fatigue November 28, 2024 10:24 am Mild cognitive impairment November 28, 2024 10:24am Chief Complaint Admit Date OSTEOPOROSIS August 09, 2024 9 :18am B12 September 19, 2024 1:10 pm FX OF MCP R HAND,RX HERE, September 20 10:30am Pre Colon September 27, 2024 9:5 5am PAIN- COPY PCP September 27, 2024 11: 06am B12 inject October 19, 2024 1:31 pm EORDER-LABS/ LOW BACK PAIN-XRAY November 142024 1:35pm B12 inject November 20, 2024 12:59p m 6 M FU November 21, 2024 11:01a m 4 M FU November 28, 2024 10:24 am PAIN- COPY PCP November 28, 2024 3:20p m Reason for Visit Admit Date Fatigue September 19, 2024 1:10 pm Diverticulosis September 27, 2024 9:5 5am Personal history of colonic polyps March 12th, 2025 9:55am Chronic constipation September 27, 2024 9: 55am Fatigue October 19, 2024 1:31 pm Fatigue November 20, 2024 12:59p m Obesity November 21, 2024 11:01a m MARTHA (obstructive sleep apnea) November 21 11:01am Abnormality of gait and mobility November 10:24am Fibromyalgia November 28, 2024 10:24 am Left hip pain November 28, 2024 10:24 am Migraine headache November 28, 2024 10:24 am Anxiety November 28, 2024 10:24 am Fatigue November 28, 2024 10:24 am Chief Complaint Admit Date September 19, 2024 1:10 pm FX OF MCP R HAND,RX HERE, September 20 10:30am Pre Colon September 27, 2024 9:5 5am PAIN- COPY PCP September 27, 2024 11: 06am B12 inject October 19, 2024 1:31 pm EORDER-LABS/ LOW BACK PAIN-XRAY November 142024 1:35pm B12 inject November 20, 2024 12:59p m 6 M FU November 21, 2024 11:01a m 4 M FU November 28, 2024 10:24 am PAIN- COPY PCP November 28, 2024 3:20p m MARTHA December 06, 2024 12:06 pm Chief Complaint Admit Date September 19, 2024 1:10 pm FX OF MCP R HAND,RX HERE, September 20 10:30am Pre Colon September 27, 2024 9:5 5am PAIN- COPY PCP September 27, 2024 11: 06am B12 inject October 19, 2024 1:31 pm EORDER-LABS/ LOW BACK PAIN-XRAY November 142024 1:35pm B12 inject November 20, 2024 12:59p m 6 M FU November 21, 2024 11:01a m 4 M FU November 28, 2024 10:24 am PAIN- COPY PCP November 28, 2024 3:20p m MARTHA December 06, 2024 12:06 pm B12 December 21, 2024 12:51 pm Additional Source Comments INFORMATION SOURCE (unrecogn ized section and content) DATE CREATED AUTHOR 02/06/2020 [facility] DATE CREATED AUTHOR [facility] 12/23/2024 [facility] Goals (unrecognized section and content) Goals may be documented in a n alternate sectionGoals may be documented in an alternate sectionGoals may be documented in an alternate sectionGoals may be documented in an alternate sectionGoals may be documented in an alternate sectionGoals may be documented in an alternate sectionGoals may be documented in an alternate sectionGoals may be documented in an alternate sectionGoals may be documented in an alternate sectionGoals may be documented in an alternate sectionGoals may be documented in an alternate sectionGoals may be documented in an alternate sectionGoals may be documented in an alternate sectionGoals may be documented in an alternate sectionGoals may be documented in an alternate sectionGoals may be documented in an alternate sectionGoals may be documented in an alternate sectionGoals may be documented in an alternate sectionGoals may be documented in an alternate section Care Teams (unrecognized sec tion and content) Team Status: Active Member Role Status Dates Dr. Carl Bourgeois , DO Family Provider Active Dr. Carl Bourgeois DO Primary Care Provider Active Team Status: Inactive Member Role Status Dates Dr. Carl Bourgeois DO Primary Care Provider, Referrin g Provider Active Dr. Carlos Ferris , DO Attending Provider Active Team Status: Inactive Member Role Status Dates Dr. Carl Bourgeois DO Primary Care Provider, Referrin g Provider Active Dr. Hoang Ugarte MD Attending Provider Active Team Status: Active Member Role Status Dates Dr. Carl Bourgeois DO Primary Care Provider Active Dr. Reggie Michele DO Emergency Provider Active Dr. Raudel Stoner MD Admit Provider, A ttending Provider, Other Provider Active Team Status: Active Member Role Status Dates Dr. Carl Bourgeois DO Primary Care Provider Active Dr. Ruy Harmon MD Attending Provider Active Team Status: Active Member Role Status Dates Dr. Carl Bourgeois DO Primary Care Provider Active Dr. Reggie Michele , DO Emergency Provider Active Dr. Raudel Stoner MD Admit Provider, Other Provider Active Dr. Carl Olivo , DO Attending Provider, Other Pro vider Active Team Status: Inactive Member Role Status Dates Dr. Carl Bourgeois DO Primary Care Provider, Attendin g Provider Active Team Status: Inactive Member Role Status Dates Dr. Carl Bourgeois DO Primary Care Provider Active Dr. Reggie Michele , DO Emergency Provider Active Dr. Raudel Stoner MD Admit Provider, Other Provider Active Dr. Carl Olivo DO Attending Provider Active Team Status: Inactive Member Role Status Dates Dr. Carl Bourgeois DO Primary Care Provider, Attendin g Provider Active Dr. Carl Olivo , DO Referring Provider Active Team Status: Inactive Member Role Status Dates Dr. Carl Bourgeois DO Primary Care Provider Active Dr. Gerri Tejeda MD Attending Provider, Referring Provider Active Team Status: Active Member Role Status Dates Dr. Carl Bourgeois DO Primary Care Prov ider, Attending Provider, Referring Provider Active Team Status: Inactive Member Role Status Dates Dr. Carl Bourgeois DO Primary Care Provider Active Dr. Hoang Ugarte MD Attending Provider, Referring Provider Active Team Status: Active Member Role Status Dates Dr. Carl Bourgeois DO Primary Care Provider Active Dr. Ruy Harmon MD Attending Provider, Referring Provider Active Team Status: Active Member Role Status Dates Dr. Carl Bourgeois DO Primary Care Provider Active Dr. Gerri Tejeda MD Attending Provider, Referring Provider Active Team Status: Active Member Role Status Dates Dr. Carl Bourgeois DO Primary Care Provider Active Dr. Hoang Ugarte MD Attending Provider, Referring Provider Active Team Status: Active Member Role Status Dates Dr. Carl Bourgeois DO Primary Care Provider Active Dr. Ruy Harmon MD Attending Provider Active Dr. Hoang Ugarte MD Referring Provider Active Team Status: Inactive Member Role Status Dates Dr. Carl Bourgeois DO Primary Care Provider, Referrin g Provider Active Elver Flores PA, PA Attending Provider Active Team Status: Active Member Role Status Dates Dr. Carl Bourgeois DO Primary Care Provider Active Dr. Garry Concepcion DO Emergency Provider Active Dr. Rajat Dalal MD Attending Provider Active Team Status: Active Member Role Status Dates Dr. Carl Bourgeois DO Primary Care Provider Active Dr. Garry Concepcion DO Emergency Provider Active Dr. Rajat Dalal MD Admit Provider, Attending Provider Active Team Status: Active Member Role Status Dates Dr. Carl Bourgeois DO Primary Care Provider Active Dr. Garry Concepcion DO Emergency Provider Active Dr. Rajat Dalal MD Admit Provider, Other Pro vider Active Dr. Raudel Stoner MD Attending Provider, Other Provi neva Active Team Status: Inactive Member Role Status Dates Dr. Carl Bourgeois , DO Primary Care Provider Active Dr. Garry Concepcion , DO Emergency Provider Active Dr. Rajat Dalal MD Admit Provider, Other Pro vider Active Dr. Raudel Stoner MD Attending Provider Active Team Status: Inactive Member Role Status Dates Dr. Carl Bourgeois , DO Primary Care Provider, Referrin g Provider Active Dr. Negrito Shi , DO Attending Provider Active Team Status: Inactive Member Role Status Dates Dr. Carl Bourgeois , DO Primary Care Prov ider, Attending Provider, Referring Provider Active Team Status: Inactive Member Role Status Dates Dr. Carl Bourgeois , DO Primary Care Provider, Referrin g Provider Active Shanel Bolton Active Dr. Hoang Ugarte MD Attending Provider Active Team Status: Inactive Member Role Status Dates Dr. Carl Bourgeois , DO Primary Care Provider Active Dr. Fili Faria MD Emergency Provider Active Team Status: Active Member Role Status Dates Dr. Carl Bourgeois , DO Primary Care Provider Active Dr. Mariluz Cisneros , DO Admit Pr ovider, Attending Provider, Other Provider Active Team Status: Inactive Member Role Status Dates Dr. Carl Bourgeois , DO Primary Care Provider Active Dr. Fili Faria MD Attending Provider, Emergency Provider Active Team Status: Inactive Member Role Status Dates Dr. Carl Bourgeois , DO Primary Care Provider Active Dr. Mariluz Cisneros , DO Admit Provider, Attend ing Provider Active Team Status: Inactive Member Role Status Dates Dr. Carl Bourgeois , DO Primary Care Provider Active Shanel Bolton Active Dr. Hoang Ugarte MD Attending Provider, Referring Provider Active Team Status: Inactive Member Role Status Dates Dr. Carl Bourgeois , DO Primary Care Provider Active Dr. Mariluz Cisneros , DO Attending Provider, Re ferring Provider Active Team Status: Inactive Member Role Status Dates Dr. Carl Bourgeois , DO Primary Care Provider, Referrin g Provider Active Homa Ignacio [employer], [employer] [facility]-C Attending Provider Active Team Status: Active Member Role Status Dates Dr. Carl Bourgeois , DO Primary Care Provider Active Dr. Neftaly Horan , DO Attending Provider Active Team Status: Inactive Member Role Status Dates Dr. Carl Bourgeois , DO Primary Care Provider Active Dr. Pina Caballero , DO Attending Provider, Referring Prov ider Active Team Status: Inactive Member Role Status Dates Dr. Carl Bourgeois DO Primary Care Provider Active Dr. Neftaly Horan DO Attending Provider Active Team Status: Inactive Member Role Status Dates Dr. Carl Bourgeois DO Primary Care Provider Active Homa Ignacio [employer] [facility], [employer] [facility]-C Attending Provider, Referrin g Provider Active Team Status: Inactive Member Role Status Dates Dr. Carl Bourgeois DO Primary Care Provider Active Start: June 21, 2024 End: June 21, 2024 Dr. Gerri Tejeda MD Attending Provider Active Start: June 21, 2024 End: June 21, 2024 Team Status: Inactive Member Role Status Dates Dr. Carl Bourgeois DO Primary Care Provider Active Start: June 23, 2024 End: June 23, 2024 Dr. Carl Bourgeois DO Attending Provider Active Start: June 23, 2024 End: June 23, 2024 Dr. Carl Bourgeois DO Referring Provider Active Start: June 23, 2024 End: June 23, 2024 Team Status: Inactive Member Role Status Dates Dr. Carl Bourgeois DO Primary Care Provider Active Start: June 26, 2024 End: June 26, 2024 Dr. Hoang Ugarte MD Attending Provider Active Start: June 26, 2024 End: June 26, 2024 Dr. Hoang Ugarte MD Referring Provider Active Start: June 26, 2024 End: June 26, 2024 Team Status: Inactive Member Role Status Dates Dr. Carl Bourgeois DO Primary Care Provider Active Start: June 27, 2024 End: June 27, 2024 Dr. Carl Bourgeois DO Attending Provider Active Start: June 27, 2024 End: June 27, 2024 Dr. Carl Bourgeois DO Referring Provider Active Start: June 27, 2024 End: June 27, 2024 Team Status: Active Member Role Status Dates Dr. Carl Bourgeois DO Primary Care Provider Active Start: June 28, 2024 [facility] Attending Provider Active Start: 2023 Team Status: Inactive Member Role Status Dates Dr. Carl Bourgeois DO Primary Care Provider Active Start: July 13, 2024 End: July 13, 2024 Dr. Hoang Ugarte MD Attending Provider Active Start: July 13, 2024 End: July 13, 2024 Dr. Hoang Ugarte MD Referring Provider Active Start: July 13, 2024 End: July 13, 2024 Team Status: Inactive Member Role Status Dates Dr. Carl Bourgeois DO Primary Care Provider Active Start: July 27, 2024 End: July 27, 2024 Dr. Carl Bourgeois DO Referring Provider Active Start: July 27, 2024 End: July 27, 2024 Dr. Naga Bates MD Attending Provider Active Start: July 27, 2024 End: July 27, 2024 Team Status: Active Member Role Status Dates Dr. Carl Bourgeois DO Primary Care Provider Active Start: July 27, 2024 Dr. Carl Bourgeois DO Referring Provider Active Start: July 27, 2024 Dr. Naga Bates MD Attending Provider Active Start: July 27, 2024 Dr. Naga Bates MD Other Provider Active Sta rt: July 27, 2024 Team Status: Inactive Member Role Status Dates Dr. Carl Bourgeois DO Primary Care Provider Active Start: July 31, 2024 End: July 31, 2024 Dr. Hoang Ugarte MD Attending Provider Active Start: July 31, 2024 End: July 31, 2024 Dr. Hoang Ugarte MD Referring Provider Active Start: July 31, 2024 End: July 31, 2024 Team Status: Inactive Member Role Status Dates Dr. Carl Bourgeois DO Primary Care Provider Active Start: August 09, 2024 End: August 09, 2024 Dr. Carl Bourgeois DO Attending Provider Active Start: August 09, 2024 End: August 09, 2024 Dr. Carl Bourgeois DO Referring Provider Active Start: August 09, 2024 End: August 09, 2024 Team Status: Inactive Member Role Status Dates Dr. Carl Bourgeois DO Primary Care Provider Active Start: September 19, 2024 End: September 19, 2024 Dr. Carl Bourgeois DO Referring Provider Active Start: September 19, 2024 End: September 19, 2024 Dr. Hoang Ugarte MD Attending Provider Active Start: September 19, 2024 End: September 19, 2024 Team Status: Inactive Member Role Status Dates Dr. Carl Bourgeois DO Primary Care Provider Active Start: September 20, 2024 End: September 20, 2024 Dr. Derik Pratt DO Attending Provider Active Start: September 20, 2024 End: September 20, 2024 Dr. Derik Pratt DO Referring Provider Active Start: September 20, 2024 End: September 20, 2024 Team Status: Inactive Member Role Status Dates Dr. Carl Bourgeois DO Primary Care Provider Active Start: September 27, 2024 End: September 27, 2024 Dr. Narciso Valderrama DO Attending Provider Active Start: September 27, 2024 End: September 27, 2024 Dr. Naga Bates MD Referring Provider Active Start: September 27, 2024 End: September 27, 2024 Team Status: Inactive Member Role Status Dates Dr. Carl Bourgeois DO Primary Care Provider Active Start: September 27, 2024 End: September 27, 2024 Dr. Gerri Tejeda MD Attending Provider Active Start: September 27, 2024 End: September 27, 2024 Dr. Gerri Tejeda MD Referring Provider Active Start: September 27, 2024 End: September 27, 2024 Team Status: Inactive Member Role Status Dates Dr. Carl Bourgeois DO Primary Care Provider Active Start: September 19, 2024 End: September 19, 2024 Dr. Hoang Ugarte MD Attending Provider Active Start: September 19, 2024 End: September 19, 2024 Dr. Hoang Ugarte MD Referring Provider Active Start: September 19, 2024 End: September 19, 2024 Team Status: Inactive Member Role Status Dates Dr. Carl Bourgeois DO Primary Care Provider Active Start: October 19, 2024 End: October 19, 2024 Dr. Hoang Ugarte MD Attending Provider Active Start: October 19, 2024 End: October 19, 2024 Dr. Hoang Ugarte MD Referring Provider Active Start: October 19, 2024 End: October 19, 2024 Team Status: Inactive Member Role Status Dates Dr. Carl Bourgeois DO Primary Care Provider Active Start: November 14, 2024 End: November 14, 2024 Dr. Carl Bourgeois DO Attending Provider Active Start: November 14, 2024 End: November 14, 2024 Dr. Carl Bourgeois DO Referring Provider Active Start: November 14, 2024 End: November 14, 2024 Dr. Hoang Ugarte MD Other Provider Active S tart: November 14, 2024 End: November 14, 2024 Team Status: Inactive Member Role Status Dates Dr. Carl Bourgeois DO Primary Care Provider Active Start: November 20, 2024 End: November 20, 2024 Dr. Carl Bourgeois DO Referring Provider Active Start: November 20, 2024 End: November 20, 2024 Dr. Hoang Ugarte MD Attending Provider Active Start: November 20, 2024 End: November 20, 2024 Team Status: Inactive Member Role Status Dates Dr. Carl Bourgeois DO Primary Care Provider Active Start: November 21, 2024 End: November 21, 2024 Dr. Carl Bourgeois DO Referring Provider Active Start: November 21, 2024 End: November 21, 2024 ANDREW HoffmanC Attending Provider Active Start: November 21, 2024 End: November 21, 2024 Team Status: Active Member Role Status Dates Dr. Carl Bourgeois DO Primary Care Provider Active Team Status: Inactive Member Role Status Dates Dr. Carl Bourgeois DO Primary Care Provider Active Start: November 28, 2024 End: November 28, 2024 Dr. Carl Bourgeois DO Referring Provider Active Start: November 28, 2024 End: November 28, 2024 Dr. Hoang Ugarte MD Attending Provider Active Start: November 28, 2024 End: November 28, 2024 Team Status: Inactive Member Role Status Dates Dr. Carl Bourgeois DO Primary Care Provider Active Start: November 28, 2024 End: November 28, 2024 Dr. Gerri Tejeda MD Attending Provider Active Start: November 28, 2024 End: November 28, 2024 Dr. Gerri Tejeda MD Referring Provider Active Start: November 28, 2024 End: November 28, 2024 Team Status: Inactive Member Role Status Dates Dr. Carl Bourgeois DO Primary Care Provider Active Start: December 06, 2024 End: December 06, 2024 SNEHA Hoffman Attending Provider Active Start: December 06, 2024 End: December 06, 2024 SNEHA Hoffman Referring Provider Active Start: December 06, 2024 End: December 06, 2024 Team Status: Inactive Member Role Status Dates Dr. Carl Bourgeois DO Primary Care Provider Active Start: November 20, 2024 End: November 20, 2024 Dr. Hoang Ugarte MD Attending Provider Active Start: November 20, 2024 End: November 20, 2024 Dr. Hoang Ugarte MD Referring Provider Active Start: November 20, 2024 End: November 20, 2024 Team Status: Inactive Member Role Status Dates Dr. Carl Bourgeois DO Primary Care Provider Active Start: December 21, 2024 End: December 21, 2024 Dr. Carl Bourgeois DO Referring Provider Active Start: December 21, 2024 End: December 21, 2024 Dr. Hoang Ugarte MD Attending Provider Active Start: December 21, 2024 End: December 21, 2024 FOR RECORDS PERTAINING TO PATIENTS WHO ARE [...] BE BASED ON THE PRIMARY CLINICAL RECORDS. [facility]. provides no warranty or guarantee of the accuracy or completeness of information in this document.
== END | disposition home or self-care (01) ==
LOC: RAD 12:50
PROVIDERS: PCP Family Medicine; Referring Provider Family Medicine; Visit Provider Family Medicine
DX: R05.9 Cough, unspecified (principal); T17.908A Unspecified foreign body in respiratory tract, part unspecified causing other injury, initial encounter
CPT/HCPCS: 74230; 92611

== ENCOUNTER → 2024-12-29 | Outpatient (CLI) | payer MEDICARE, OTHER, SELFPAY ==
[2024-12-29 17:19] LABS: ALB/GLOB Ratio 1.4 RATIO (0.9-2.4); AST(SGOT) 21 U/L (<=31); Alanine Aminotransfer ALT/SGPT 14 U/L (<=34); Albumin, Serum 3.7 g/dL (3.4-4.8); Alkaline Phosphatase 58 U/L (35-104); Anion Gap 8 (5-15); BUN 18 mg/dL (4-19); BUN/Creat Ratio 16.6 RATIO (10-20); Calcium,Total 9.2 mg/dL (7.6-11.0); Carbon Dioxide 27.9 mmol/L (21.0-32.0); Chloride 105 mmol/L (98-108); Creatinine, Serum 1.09 mg/dL (0.70-1.20); EST Glomerular Filtration Rate 53 (>60); Globulin 2.6 g/dL (2.2-4.2); Glucose 75 mg/dL (70-99); Protein, Total 6.2 g/dL (5.9-8.4); Sodium Level 140 mmol/L (133-145); Total Bilirubin 0.27 mg/dL (0.00-1.30)
== END | disposition home or self-care (01) ==
LOC: MTLAB 11:19
PROVIDERS: PCP Family Medicine; Referring Provider Internal Medicine Rheumatology; Visit Provider Internal Medicine Rheumatology
DX: M06.4 Inflammatory polyarthropathy (principal); M79.7 Fibromyalgia; R76.8 Other specified abnormal immunological findings in serum; Z79.899 Other long term (current) drug therapy
CPT/HCPCS: 36415; 80053

== ENCOUNTER 2025-02-16 06:52 | Day surgery (SDC) | payer MEDICARE, OTHER, SELFPAY ==
[2025-02-16 07:08] VITALS: BP 164/75; PULSE 58; TEMP 36.8; O2SAT 100
--- OUTSIDE RECORDS SUMMARY | 2025-02-16 07:12 | XMS RPT_ITS | CCD ---
Author Organization [facility] CliniSyms Care Team Providers Care Hands Assembler Name Role Phone Dr. Audelia Mace Primary Care Provider [phone] Dr. Audelia Mace Referring Provider Dr. Reggie Martinez Attending Provider Dr. Carlos Ferris Attending Provider Dr. Reggie Michele Emergency Provider Herbie, Dr. Starks Admit Provider Dr. Raudel Stoner Attending Provider Dr. Raudel Stoner Other Provider Dr. Ruy Harmon Attending Provider Dr. Audelia Olivo Attending Provider Dr. Audelia Olivo Other Provider Dr. Audelia Mace Primary Care Provider [phone] Dr. Audelia Mace Referring Provider Dr. Carlos Ferris Attending Provider Dr. Reggie Michele Emergency Provider Dr. Raudel Stoner Admit Provider Dr. Raudel Stoner Attending Provider Dr. Raudel Stoner Other Provider Dr. Ruy Harmon Attending Provider Dr. Audelia Olivo Attending Provider Dr. Audelia Olivo Other Provider Dr. Hoang Ugarte Attending Provider Dr. Audelia Mace Primary Care Provider [phone] Dr. Audelia Mace Referring Provider Dr. Carlos Ferris Attending Provider Dr. Ruy Harmon Attending Provider Dr. Hoang Ugarte Referring Provider Dr. Audelia Mace Primary Care Provider [phone] Dr. Audelia Mace Referring Provider [phone] Dr. Hoang Ugarte Attending Provider [phone] Dr. Ruy Harmon Attending Provider Dr. Hoang Ugarte Referring Provider [phone] Sandra VALDEZ, JOSÉ MIGUEL Zhang Attending Provider Dr. Garry Concepcion Emergency Provider [phone] Rajat Dalal Attending Provider Dr. Rajat Dalal Admit Provider Dr. Rajat Dalal Other Provider Dr. Raudel Stoner Attending Provider Dr. Raudel Stoner Other Provider Dr. Negrito Shi Attending Provider Dr. Audelia Mace Primary Care Provider [phone] Dr. Audelia Mace Referring Provider Dr. Hoang Ugarte Attending Provider [phone] Audelia Mace Primary Care Provider [phone] Dr. Hoang Ugarte Referring Provider [phone] Audelia Mace Primary Care Provider [phone] Dr. Audelia Mace Referring Provider [phone] Audelia Mace Primary Care Provider [phone] Dr. Hoang Ugarte Attending Provider [phone] Hoang Ugarte Referring Provider Dr. Audelia Mace Referring Provider Sementi, Dr. Mariluz Ferreira Admit Provider Sementi, Dr. Mariluz Ferreira Attending Provider Sementi, Dr. Mariluz Ferreira Other Provider Dr. Audelia Mace Primary Care Provider Shanel, Dr. Bolton Attending Provider Dr. Hoang Ugarte Referring Provider Dr. Audelia Mace Primary Care Provider Sementi, Dr. Mariluz Ferreira Admit Provider Sementi, Dr. Mariluz Ferreira Attending Provider Sementi, Dr. Mariluz Ferreira Other Provider Dr. Hoang Ugarte Attending Provider Dr. Hoang Ugarte Referring Provider Dr. Audelia Mace Referring Provider Mateus DIRECTOR SAFETY COUNCIL, DIRECTOR SAFETY COUNCIL-C Homa Attending Provider [phone] Dr. Audelia Mace Primary Care Provider [phone] Hoang Ugarte Attending Provider Dr. Hoang Ugarte Referring Provider Dr. Audelia Mace Referring Provider JOSÉ MIGUEL Domingo Attending Provider Mateus WADDELL, DIRECTOR SAFETY COUNCIL-C Homa Attending Provider Dr. Audelia Mace Primary Care Provider [phone] Audelia Mace Referring Provider Dr. Hoang Ugarte Attending Provider Dr. Hoang Ugarte Referring Provider [facility], Dr. Henry Primary Care Provider Ileana NAZARIO, Dr. Talley Attending Provider [facility], Dr. Henry Attending Provider [facility], Dr. Henry Referring Provider Shanel NAZARIO, Dr. Bolton Attending Provider Shanel NAZARIO, Dr. Bolton Referring Provider Chante Li Attending Provider Unavailable Paulo NAZAIRO, Dr. Escobar Attending Provider Paulo NAZARIO, Dr. Escobar Other Provider Santa DEVINE, Dr. More Attending Provider Santa DEVINE, Dr. More Referring Provider Hinton DO, Dr. Stuart Attending Provider Paulo NAZARIO, Dr. Escobar Referring Provider Ileana NAZARIO, Dr. Talley Referring Provider [facility], Dr. Henry Primary Care Provider Rodri , Dr. Henry Referring Provider [phone] Shanel NAZARIO, Dr. Bolton Attending Provider Shanel NAZARIO, Dr. Bolton Referring Provider [facility], Dr. Henry Attending Provider [phone] Ileana NAZARIO, Dr. Talley Attending Provider Shanel NAZARIO, Dr. Bolton Other Provider Valdez WADDELL-C, Slime Zhang Attending Provider Rodri DO, Dr. Henry Primary Care Provider Rodrimadelyn DEVINE, Dr. Henry Referring Provider [facility] , Dr. Henry Primary Care Provider Dr. Hoang Ugarte MD Attending Provider Shanel NAZARIO, Dr. Bolton Referring Provider Rodri DO, Dr. Henry Primary Care Provider [phone] Rodri DEVINE, Dr. Henry Attending Provider [phone] Rodri DEVINE, Dr. Henry Referring Provider [phone] Slime Pemberton Referring Provider Rodri DEVINE, Dr. Henry Primary Care Provider Shanel NAZARIO, Dr. Bolton Attending Provider Shanel NAZARIO, Dr. Bolton Referring Provider Rodri DO, Dr. Henry Primary Care Provider Ileana NAZARIO, Dr. Talley Attending Provider Ileana NAZARIO, Dr. Talley Referring Provider Jannie DEVINE, Dr. Stuart Attending Provider Rodri, Audelia Primary Care Unavailable Vellanki, Gerri Referring Unavailable Vellanki, Gerri Attending Unavailable Rodri, Audelia Primary Care Unavailable Rodri, Audelia Attending Unavailable Rodri, Audelia Referring Unavailable Rodri, Audelia Primary Care Unavailable Severo David Attending Unavailable Vellanki, Gerri Attending Unavailable Rodri, Audelia Primary Care Unavailable Rodri, Audelia Primary Care Unavailable Rodri, Audelia Attending Unavailable Rodri, Audelia Referring Unavailable BaddoHoang antonio Attending Unavailable Rodri, Audelia Primary Care Unavailable Hoang Ugarte Referring Unavailable Naga Bates Attending Unavailable Rodri, Audelia Referring Unavailable Rodri, Audelia Primary Care Unavailable BorrusoDerik Referring Unavailable BorruDerik arora Attending Unavailable Vellanki, Gerri Consulting Unavailable Rodri, Audelia Primary Care Unavailable TenisharusoDerik Attending Unavailable Rodri, Audelia Primary Care Unavailable Rodri, Audelia Referring Unavailable BaddourHoang Referring Unavailable Rodri, Audelia Primary Care Unavailable BaddourHoang Attending Unavailable Rodri, Audelia Primary Care Unavailable Yao Negrete Attending Unavailable Rodri, Audelia Primary Care Unavailable Vellanki, Gerri Attending Unavailable Vellanki, Gerri Referring Unavailable Rodri, Audelia Attending Unavailable Rodri, Audelia Referring Unavailable Rodri, Audelia Primary Care Unavailable Rodri, Audelia Primary Care Unavailable Baddour, Hoang Consulting Unavailable Rodri, Audelia Attending Unavailable Rodri, Audelia Referring Unavailable Rodri, Audelia Primary Care Unavailable Slime Kellogg Referring Unavailable Slime Kellogg Attending Unavailable Rodri, Audelia Primary Care Unavailable Gerri Tejeda Attending Unavailable Gerri Tejeda Referring Unavailable Baddour, Hoang Attending Unavailable Rodri, Audelia Primary Care Unavailable Rodri, Audelia Referring Unavailable Baddour, Hoang Attending Unavailable Rodri, Audelia Primary Care Unavailable Baddour, Hoang Referring Unavailable Baddour, Hoang Referring Unavailable Rodri, Audelia Primary Care Unavailable Baddour, Hoang Attending Unavailable Rodri, Audelia Primary Care Unavailable Derik Pratt Attending Unavailable Rodri, Audelia Referring Unavailable Rodri, Audelia Referring Unavailable Rodri, Audelia Attending Unavailable Rodri, Audelia Primary Care Unavailable Rodri, Audelia Primary Care Unavailable Severo David Attending Unavailable Rodri, Audelia Primary Care Unavailable Narciso Valderrama Attending Unavailable Baddour, Hoang Attending Unavailable Rodri, Audelia Primary Care Unavailable Baddour, Hoang Referring Unavailable Baddour, Hoang Referring Unavailable Rodri, Audelia Primary Care Unavailable Baddour, Hoang Attending Unavailable Rodri, Audelia Primary Care Unavailable Narciso Valderrama Attending Unavailable Naga Bates Referring Unavailable Baddour, Hoang Referring Unavailable Rodri, Audelia Primary Care Unavailable Baddour, Hoang Attending Unavailable Rodri, Audelia Primary Care Unavailable Homa Ignacio NP Attending Unavailable Rodri, Audelia Referring Unavailable Derik Pratt Attending Unavailable Rodri, Audelia Primary Care Unavailable Rodri, Audelia Referring Unavailable Rodri, Audelia Primary Care Unavailable Naga Bates Attending Unavailable Naga Bates Consulting Unavailable Rodri, Audelia Referring Unavailable Chante Li Attending Unavailable Rodri, Audelia Primary Care Unavailable Baddour, Hoang Referring Unavailable Rodri, Audelia Primary Care Unavailable Baddour, Hoang Attending Unavailable Baddour, Hoang Referring Unavailable Rodri, Audelia Primary Care Unavailable Baddour, Hoang Attending Unavailable Rodri, Audelia Primary Care Unavailable Slime Kellogg Attending Unavailable Rodri, Audelia Referring Unavailable Rodri, Audelia Primary Care Unavailable Rodri, Audelia Referring Unavailable Baddour, Hoang Attending Unavailable Baddour, Hoang Referring Unavailable Audelia Mace Primary Care Unavailable Shanel Hoang Attending Unavailable Audelia Mace Primary Care Unavailable RodriAudelia joshi Referring Unavailable Shanel Hoang Attending Unavailable Audelia Mace Primary Care Unavailable Jannie Narciso Attending Unavailable Audelia Mace Referring Unavailable Derik Pratt Attending Unavailable Rodri, Audelia Primary Care Unavailable Rodri, Audelia Referring Unavailable Badnikki, Hoang Attending Unavailable Rodri, Audelia Primary Care Unavailable Baddomarisela, Hoang Referring Unavailable Rodri, Audelia Primary Care Unavailable Severo David Attending Unavailable Shanel, Hoang Referring Unavailable Rodri, Audelia Primary Care Unavailable Badnikki, Hoang Attending Unavailable Rodri, Audelia Primary Care Unavailable Gerri Tejeda Referring Unavailable Gerri Tejeda Attending Unavailable RODRI DEVINE, DR AUDELIA Borrego Primary Care Physician Shamika Han Unavailable Unavailable Lety Pineda Unavailable Unavailable Janie Garzon Unavailable Unavailable Aggie Brito Unavailable Unavailable LINK ROTHMAN MD Attending Unavailable DR AUDELIA MACE DO Primary Care Unavailab le Allergies Allergy Classification Reported Allergen(s) Allergy Type Date of Onset Reaction(s) Facility (20 sources) Codeine Drug Allergy 11-24-2020 Divya [facility] (1 source) Codeine Drug Allergy 11-28-2024 [facility] Repository Medications Current Medications Medication Drug Class(es) Dates Sig (Normalized) Sig (Original) acetaminophen 500 mg oral tablet (16 sources) Start: 03-09-2023 take 2 tablets by mouth every six hours as needed for pain Acetaminophen 500 mg Tablet Active 1000 mg PO EVERY 6 HOURS as needed for pain, mild 1 0 March 09, 2023 12:15pm Start: 03-09-2023 take [...] mg PO DAILY October 08, 2022 2:22pm [facility] Start: 01-08-2016 End: 09-20-2018 take 1 tablet by mouth twice daily at mealtime Aspirin 325 MG tablet Discontinued 325 mg PO TWICE DAILY WITH MEALS 60 0 January 08, 2016 12:00am September 20, 2018 3:47pm calcium carbonate 1250 mg / cholecalciferol 0.01 mg oral tablet (20 sources) Vitamin D Start: 04-07-2022 Calcium Carbon ate-Vitamin D3 500 mg-10 mcg (400 unit) tablet Active 1 {tbl} PO THREE TIMES A DAY April 07, 2022 12:00am SUPPLEMENT Start: 04-07-2022 take 1 tablet by amelia [...] TWICE A DAY June 28, 2024 10:35am DEPRESSION Start: 04-07-2022 take 60 mg by mouth [...] 11:00pm ferrous sulfate 325 mg oral tablet (20 sources) Start: 10-08-2022 take 1 tablet by mouth once daily Ferrous Sulfate 325 mg (65 mg iron) Tablet Active 325 mg PO DAILY October 08, 2022 12:00am SUPPLEMENT folic acid 1 mg oral tablet (20 sources) Start: 06-28-2024 take 2 tablets by mouth once daily Folic Acid 1 mg tablet Active 2 mg PO daily June 28, 2024 1:00am Start: 04-07-2022 End: 04-12-2024 take 1 tablet by mouth once daily Folic Acid 1 mg tablet Discontinued 1 mg PO DAILY April 07, 2022 12:00am April 12, 2024 10:33am SUPPLEMENT Start: 04-07-2022 take 1 mg by mouth twice daily Folic Acid Active 1 MG PO TWICE A DAY April 07, 2022 12:00am gabapentin 100 mg oral capsule (20 sources) Anti-epileptic Agent Start: 11-28-2024 take 1 capsule by mouth three times daily Gabapentin 100 mg capsule Active 100 mg PO THREE TIMES A DAY 270 November 28, 2024 12:00am 90 day supply BERNABE: [id number] Start: 03-09-2023 End: 08-10-2023 Gabapentin 100 mg Capsule Di scontinued 0 .ROUTE .COMPLEX 120 0 March 09, 2023 12:00am August 10, 2023 2:29pm 1 capsule twice a day and 2 capsules 1 hr before bed. hydroxychloroquine sulfate 200 mg oral tablet (20 sources) Antimalarial, Antirheumatic Agent Start: 06-28-2024 take 1 tablet by mouth once daily Hydroxychloroquine (Plaquenil) 200 mg tablet Active 200 mg PO daily June 28, 2024 10:37am RHEUMATOID ARTHRITIS Start: 04-07-2022 End: 06-28-2024 take 1 tablet by mouth twice daily Hydroxychloroquine (Plaquenil) 200 mg tablet Discontinued 200 mg PO TWICE A DAY April 07, 2022 12:00am June 28, 2024 10:40am RHEUMATOID ARTHRITIS ibandronic acid 150 mg oral tablet (20 sources) Bisphosphonate Start: 11-26-2015 take 1 tablet by mouth every 30 days Ibandronate 150 MG tablet Active 150 mg PO Q30D November 26, 2015 12:00am [facility] meloxicam 7.5 mg oral tablet (17 sources) Nonsteroidal Anti-inflammatory Drug Start: 07-31-2024 End: [...] mg PO ARIAS April 07, 2022 12:00am RHEUMATOID ARTHRITIS Start: 04-07-2022 Methotrexate S odium Active 15 MG PO ARIAS April 07, 2022 12:00am microencapsulated potassium chloride 10 meq extended release oral tablet (20 sources) Start: 04-07-2022 take 1 tablet by mouth twice daily Potassium Chloride 10 mEq tablet,ER particles/crystals Active 10 meq PO TWICE A DAY April 07, 2022 12:00am SUPPLEMENT predniSONE 10 mg oral tablet (20 sources) [...] 2022 12:00am July 08, 2022 5:59pm Vibegron (10 sources) Start: 06-28-2024 take 1 tablet by mouth once daily Vibegron (Gemtesa) 75 mg tablet Active 75 mg PO daily June 28, 2024 1:00am vitamin b12 1 mg/ml injectable solution (20 sources) Vitamin B12 Start: 06-28-2024 inject 100 ug by intramuscular injection every month Cyanocobalamin (Vitamin B-12) 1,000 mcg/mL solution Active 100 ug IM EVERY MONTH June 28, 2024 1:00am Start: 02-22-2023 End: 04-12-2024 Cyanocobalamin (Vitamin B-12 ) (Dodex) 1,000 mcg/mL solution Discontinued 1000 ug SC EVERY MONTH February 22, 2023 12:00am April 12, 2024 10:33am supplement Completed/Discontinued Medications Medication Drug Class(es) Dates Sig (Normalized) Sig (Original) acetaminophen 325 mg / HYDROcodone bitartrate 5 mg oral tablet (20 sources) Opioid Agonist Start: 11-24-2020 End: 04-07-2022 take 1 tablet by mouth every six hours as needed for pain Hydrocodone-Acetami nophen 1 TABLET tablet Discontinued 1 {tbl} PO EVERY 6 HOURS NEEDED as needed for Pain 10 3 0 November 24, 2020 April 07, 2022 10:24am Fracture of rib of left side Fracture of one rib, left side, initial encounter for closed fracture Start: 11-24-2020 End: 04-07-2022 take 1 tablet by mouth every six hours as needed Hydrocodone-Acetaminophen Discontinued 1 TABLET PO EVERY 6 HOURS NEEDED 10 3 November 24, 2020 April 07, 2022 10:24am Start: 01-08-2016 End: 09-20-2018 Hydrocodone-Acetaminophen 1 TABLET tablet Discontinued 1 - 2 {tbl} PO EVERY 6 HOURS NEEDED as needed for Mild-Mod Pain () 90 0 January 08, 2016 12:00am September 20, 2018 3:47pm Start: 01-08-2016 End: 09-20-2018 take 1 tablet by mouth every six hours as needed Hydrocodone-Acetaminophen Discontinued 1 - 2 TABLET PO EVERY 6 HOURS NEEDED 90 January 08, 2016 12:00am September 20, 2018 3:47pm Start: 11-26-2015 End: 01-08-2016 Hydrocodone-Acetaminophen 1 TABLET tablet Discontinued 0.5 {tbl} PO THREE TIMES A DAY November 26, 2015 12:00am January 08, 2016 11:37am Start: 11-26-2015 End: 01-08-2016 take 0.5 tablet by mouth three times daily Hydrocodone-Acetaminophen Discontinued 0 .5 TABLET PO THREE TIMES A DAY November 26, 2015 12:00am January 08, 2016 11:37am [id number] 200 actuat albuterol 0.09 mg/actuat metered dose inhaler (20 sources) beta2-Adrenergic Agonist Start: 10-10-2022 End: 03-09-2023 Albuterol Sulfate 90 mcg/actuation HFA aerosol inhaler Discontinued 2 NMA INHALATION EVERY 6 HOURS as needed for shortness of breath or wheezing 8.5 0 October 10, 2022 11:44am March 09, 2023 12:12pm Start: 10-10-2022 End: 03-09-2023 Albuterol Sulfate Discontinu ed 2 INH INHALATION EVERY 6 HOURS 8.5 October 10, 2022 11:44am March 09, 2023 12:12pm amoxicillin 500 mg oral tablet (20 sources) Penicillin-class Antibacterial Start: 04-07-2022 End: 07-08-2022 take 4 tablets by mouth once Amoxicillin 500 mg tablet Discontinued 2000 mg PO ONCE April 07, 2022 12:00am July 08, 2022 12:11pm infection prior to dentist appt Start: 04-07-2022 End: 07-08-2022 take 2000 mg by mouth once Amoxicillin Discontinued 20 00 MG PO ONCE April 07, 2022 12:00am July 08, 2022 12:11pm prior to dentist appt baclofen 10 mg oral tablet (16 sources) gamma-Aminobutyric Acid-ergic Agonist Start: 03-09-2023 End: 03-16-2023 take 1 tablet by mouth at bedtime, then take 0.5 tablet by mouth at bedtime Baclofen 10 mg Tablet Discontinued 5 mg PO AT BEDTIME 30 0 March 09, 2023 12:00am March 16, 2023 [...] 24, 2023 12:00am March 09, 2023 12:13pm Anxity Start: 02-24-2023 End: 03-09-2023 take 15 mg by mouth twice daily Buspirone Discontinued 15 MG PO TWICE A DAY February 24, 2023 12:00am March 09, 2023 12:13pm Start: 11-09-2022 End: 02-24-2023 take 1 tablet by mouth twice daily Buspirone 10 mg tablet Discontinued 10 mg PO TWICE A DAY 60 5 November 09, 2022 12:00am February 24, 2023 2:07pm Start: 07-08-2022 End: 11-09-2022 take 1 tablet by mouth twice daily Buspirone 5 mg tablet Discontinued 5 mg PO TWICE A DAY October 08, 2022 2:22pm November 09, 2022 7:04pm ANXIETY calcium carbonate 1250 mg chewable tablet (20 sources) Start: 11-26-2015 End: 04-07-2022 take 1 tablet by mouth three times daily Calcium Carbonate 500 MG tablet,chewable Discontinued 500 mg PO THREE TIMES A DAY November 26, 2015 12:00am April 07, 2022 10:24am cefdinir 300 mg oral capsule (20 sources) Cephalosporin Antibacterial Start: 10-10-2022 End: 10-29-2022 take 1 capsule by mouth twice daily Cefdinir 300 mg capsule Discontinued 300 mg PO TWICE A DAY 10 October 10, 2022 12:00am October 29, 2022 8:43am celecoxib 200 mg oral capsule (20 sources) Nonsteroidal Anti-inflammatory Drug Start: 11-26-2015 End: 04-07-2022 take 1 capsule by mouth twice daily Celecoxib 200 MG capsule Discontinued 200 mg PO TWICE A DAY November 26, 2015 12:00am April 07, 2022 10:24am fibromyalgia cholecalciferol 0.025 mg oral tablet (20 sources) Vitamin D Start: 04-07-2022 End: 10-08-2022 take 1 tablet by mouth once daily Cholecalciferol (Vitamin D3) 25 mcg (1,000 unit) tablet Discontinued 2000 U PO DAILY April 07, 2022 10:18am October 08, 2022 2:20pm vitamin Start: 11-26-2015 End: 04-07-2022 take 2 tablets [...] 08, 2022 2:30pm October 10, 2022 11:41am ANTIBIOTIC dexamethasone 6 mg oral tablet (13 sources) Corticosteroid Start: 06-28-2023 End: 11-04-2023 take 1 tablet by mouth once daily Dexamethasone 6 mg tablet Discontinued 6 mg PO DAILY 5 0 June 28, 2023 1:00am November 04, 2023 3:27pm 12 hr guaiFENesin 1200 mg / pseudoephedrine hydrochloride 120 mg extended release oral tablet (20 sources) alpha-Adrenergic Agonist Start: 10-10-2022 End: 10-29-2022 Pseudoephedrine-Guaife nesin (Mucus D) 120-1,200 mg tablet extended release 12 hr Discontinued 1 {tbl} PO Q12H 14 0 October 10, 2022 12:00am October 29, 2022 8:42am cold symptoms hydroCHLOROthiazide 25 mg oral tablet (20 sources) Thiazide Diuretic Start: 11-26-2015 End: 03-09-2023 take 1 tablet by mouth once daily Hydrochlorothiazide 25 MG tablet Discontinued 25 mg PO DAILY November 26, 2015 12:00am March 09, 2023 12:12pm BLOOD PRESSURE loratadine 10 mg oral tablet (20 sources) [...] TIMES DAILY NEEDED as needed for Vertigo 30 0 March 09, 2023 12:00am March 16, 2023 [...] A DAY as needed for dizziness 60 5 July 14, 2022 1:00am October 08, 2022 2:22pm medroxyPROGESTERone acetate 10 mg oral tablet (20 sources) Progestin Start: 10-05-2018 End: 10-15-2018 take 1 tablet by mouth three times daily Medroxyprogesterone 10 mg tablet Discontinued 10 mg PO THREE TIMES A DAY 90 0 October 05, 2018 12:00am October 14, 2018 12:00am October 15, 2018 12:08am Start: 09-22-2018 End: 09-23-2018 Medroxyprogesterone 10 mg ta blet Discontinued 10 mg PO .COMPLEX 60 0 0 September 22, 2018 1:00am September 22, [...] 31, 2024 12:07pm November 28, 2024 11:31am HTN Start: 07-08-2022 End: 11-09-2022 take 1 tablet by mouth once daily Propranolol 40 mg tablet Discontinued 40 mg PO DAILY July 08, 2022 5:59pm November 09, 2022 7:05pm BLOOD PRESSURE Start: 11-26-2015 End: 07-08-2022 take 1 tablet by mouth twice daily Propranolol 40 MG tablet Discontinued 40 mg PO TWICE A DAY November 26, 2015 12:00am July 08, 2022 5:59pm bp topiramate 25 mg oral capsule (20 sources) Start: 04-07-2022 End: 07-08-2022 take 1 capsule by mouth once daily Topiramate 25 mg capsule, sprinkle Discontinued 25 mg PO DAILY April 07, 2022 12:00am July 08, 2022 5:59pm seizures traMADol hydrochloride 50 mg oral tablet (16 sources) Opioid Agonist Start: 03-09-2023 End: 03-16-2023 take 50-100 mg by mouth every six hours as needed for pain Tramadol 50 mg Tablet Discontinued 50 - 100 mg PO EVERY 6 HOURS NEEDED as needed for Pain Score 3-10 50 0 March 09, 2023 12:00am March 16, 2023 1:40pm Vitamin B Complex (B Complex-Vitamin B12) tablet (20 sources) Start: 10-29-2022 End: 02-22-2023 Vitamin B [...] unspecified] 10-20-2018 Episodic Blindness and vision defects (9 sources) Diplopia; Translations: [Diplopia] 10-31-2024 Episodic Conditions associated with dizziness or vertigo (20 sources) Vertigo; Translations: [Dizziness and giddiness] 07-08-2022 Episodic Deficiency and other anemia (16 sources) Macrocytic anemia; Translations: [Nutritional anemia, unspecified] 02-25-2023 Episodic Deficiency and other anemia (1 source) Nutritional anemia, unspecified; Translations: [Unspecified deficiency anemia] 03-10-2023 Episodic Diverticulosis and diverticulitis (19 sources) Diverticular disease; Translations: [Diverticulosis of intestine, part unspecified, without perforation or abscess without bleeding] 09-27-2024 Chronic E Codes: Fall (10 sources) Fall; Translations: [Unspecified fall, initial encounter] 04-17-2024 Episodic Genitourinary symptoms and ill-defined conditions (20 sources) Female stress incontinence; Translations: [Stress incontinence (female) (male)] 10-20-2018 Chronic Headache; including migraine (14 sources) Migraine; Translations: [Migraine, unspecified, not intractable, without status migrainosus] 11-28-2024 Chronic Malaise and fatigue (1 source) Chronic fatigue, unspecified; Translations: [Chronic fatigue, unspecified] Onset: 01-25-2025 Chronic Malaise and fatigue (20 sources) Fatigue; [...] was normal. 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] 03-10-2023 Chronic Other female genital disorders (20 sources) Enlarged uterus; Translations: [Hypertrophy of uterus] 10-20-2018 Episodic Other fractures (20 sources) Fracture of rib; Translations: [Fracture of one rib, left side, initial encounter for closed fracture] 11-25-2020 Episodic Other fractures (13 sources) Fracture of left rib; Translations: [Fracture of one rib, left side, initial encounter for closed fracture] 11-25-2020 Episodic Other gastrointestinal disorders (19 sources) Chronic constipation; Translations: [Other constipation] 09-27-2024 Episodic Other gastrointestinal disorders (2 sources) Dysphagia; Translations: [Dysphagia, unspecified] 01-26-2025 Episodic Other hereditary and degenerative nervous system [...] infectious and parasitic diseases] 10-29-2022 Episodic Other lower respiratory disease (20 sources) Hypoxia; Translations: [Hypoxemia] 10-08-2022 Episodic Other lower respiratory disease (6 sources) Hypoxemia; Translations: [Hypoxemia] 10-08-2022 Episodic Other nervous system disorders (20 sources) Expressive dysphasia; Translations: [Aphasia] 05-08-2022 Chronic Other nervous system disorders (20 sources) Aphasia; Translations: [Aphasia] 10-08-2022 Chronic Other nervous system disorders (5 sources) Aphasia; Translations: [Aphasia] 10-10-2022 Chronic Other nervous system disorders (17 sources) Unable to walk; Translations: [Difficulty in walking, not elsewhere classified] 02-22-2023 Chronic Other nervous system disorders (20 sources) Multifactorial gait problem; Translations: [Other abnormalities of gait and mobility] 07-08-2022 Episodic Other nervous system disorders (19 sources) Other abnormalities of gait and mobility; Translations: [Abnormality of gait] 07-08-2022 Episodic Other nervous system disorders (20 sources) Dysarthria; Translations: [Dysarthria and anarthria] 10-08-2022 [...] [Dysarthria] 10-08-2022 Episodic Other nervous system disorders (20 sources) Abnormal gait; Translations: [Unspecified abnormalities of gait and mobility] 12-14-2023 Episodic Other non-traumatic joint disorders (20 sources) Hip pain; Translations: [Pain in left hip] 07-31-2024 Episodic Other nutritional; endocrine; and metabolic disorders (20 sources) Obesity; Translations: [Obesity, unspecified] 2023 Chronic [...] unspecified organism] 10-08-2022 Episodic Residual codes; unclassified (16 sources) Hypersomnia; Translations: [Hypersomnia, unspecified] 03-10-2023 Chronic Residual codes; unclassified (3 sources) Hypersomnia, unspecified; Translations: [Hypersomnia, unspecified] 03-10-2023 Chronic Residual codes; unclassified (20 sources) Obstructive sleep apnea syndrome; Translations: [Obstructive sleep apnea (adult) (pediatric)] 2023 Chronic Comment on above: AHI 14.9 Residual codes; unclassified (6 sources) Obstructive sleep apnea (adult) (pediatric); Translations: [Obstructive sleep apnea (adult)(pediatric)] Onset: 12-13-2024 2023 Chronic Residual codes; unclassified (20 sources) Altered mental status; Translations: [Altered mental status, unspecified] 10-08-2022 Episodic Residual codes; unclassified (6 sources) Altered mental status, unspecified; Translations: [Altered mental status] 10-08-2022 Episodic Residual codes; unclassified (17 sources) History of operative procedure on lumbosacral spinal structure; Translations: [Other specified postprocedural states] 02-22-2023 Episodic Residual codes; unclassified (16 sources) History of operative procedure on lumbar spinal structure; Translations: [Other specified postprocedural states] 02-25-2023 Episodic Comment on above: 02/17/[address] Frank Horan. Decomression and fusion. Residual codes; unclassified (3 sources) Other specified postprocedural states; Translations: [Other postprocedural status] 03-10-2023 Episodic Rheumatoid arthritis and related disease (20 sources) Inflammatory polyarthropathy; Translations: [Inflammatory polyarthropathy] Onset: 01-04-2025 07-08-2022 Chronic Spondylosis; intervertebral disc disorders; other back problems (20 sources) Arthritis of lumbosacral spine; Translations: [Spondylosis without myelopathy or radiculopathy, lumbosacral region] Chronic Systemic lupus erythematosus and connective tissue disorders (20 sources) Lupus erythematosus; Translations: [Systemic lupus erythematosus, unspecified] 10-20-2018 Chronic Comment on above: This is questionable ......2nd opinion at 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, unspecified] 07-08-2022 Chronic Unclassified (1 source) Cough, unspecified; Translations: [Cough, unspecified] Onset: 01-02-2025 Unclassified (1 source) Low back pain, unspecified; Translations: [Low back pain, unspecified] Onset: 11-23-2024 Unclassified (1 source) Personal history of colon polyps, unspecified; Translations: [Personal history of colon polyps, unspecified] Onset: 08-18-2024 Past or Other Problems Problem Classification Problem Date Documented Date Episodic/Chronic Deficiency and other anemia (1 source) Anemia, unspecified; Translations: [Anemia, unspecified] Onset: 07-28-2024 Episodic Fracture of upper limb (20 sources) Fracture of metacarpal bone; Translations: [Unspecified fracture of unspecified metacarpal bone, initial encounter for closed fracture] Onset: 04-12-2024 04-19-2024 Episodic Immunizations and screening for infectious disease (1 source) Other specified abnormal immunological findings in serum; Translations: [Other specified abnormal immunological findings in serum] Onset: 09-21-2024 Episodic Other aftercare (1 source) 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; Translations: [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] Onset: 09-21-2024 Episodic Other [...] conditions (not mental disorders or infectious disease) (12 sources) Patient encounter status; Translations: [Encounter for screening for malignant neoplasm of colon] Onset: 07-27-2024 06-28-2024 Episodic Spondylosis; intervertebral disc disorders; other back problems (20 sources) Low back pain; Translations: [Low back pain] Onset: 08-21-2024 04-15-2022 Episodic Comment on above: 02/2023 Results Test Name Value Interpretation Reference Range Facility .GFRon 02-13-2025 Estimated Glomerular Filtration Rate 53 ml/min/1.73sqm Normal [facility] Comment on above: Result Comment: Stages of Chronic Kidney Disease (CKD) Stage Description eGFR(ml/min/1.73 sq.m.) CKD 1 Normal kidney function or >=90 normal kindney function with possible kidney damage (ex. Proteinuria) CKD 2 Kidney damage with mild loss 60-89 of kidney function CKD 3a Mild to moderate loss of kidney 45-59 function CKD 3b Moderate to severe loss of 30-44 of kindey function CKD 4 Severe loss of kidney function 15-29 CKD 5 Kidney failure <15 Note: (go live 2024) the eGFR calculation was updated to the 2020 CKD-EPI creatinine equation without a race factor to calculate the eGFR results. Performed By: #### G , BMP #### [address] [address] BMPon 02-13-2025 BUN/Creatinine Ratio 23 ratio Normal 7-27 [facility] Comment on above: Performed By: #### G FR, BMP #### [address] [address] Calcium [Mass/Vol] 9.3 mg/dL Normal 8.4-10.2 [facility] Comment on above: Performed By: #### G FR, BMP #### [address] [address] Chloride [Moles/Vol] 105 mmol/L Normal 98-107 [facility] Comment on above: Performed By: #### G , BMP #### [address] [address] CO2 [Moles/Vol] 32 mmol/L High 23-31 [facility] Comment on above: Performed By: #### G , BMP #### [address] [address] Creatinine [Mass/Vol] 1.10 mg/dL High 0.51-0.95 [facility] Comment on above: Performed By: #### Mony MEDLEY, BMP #### [address] [address] Electrolyte Balance 5.0 mEq/L Normal 4.0-15.[address] [facility] Comment on above: Performed By: #### G , BMP #### [address] [address] Glucose [Mass/Vol] 89 mg/dL Normal 83-110 [facility] Comment on above: Performed By: #### Mony MEDLEY, BMP #### [address] [address] Potassium [Moles/Vol] 4.7 mmol/L Normal 3.5-5.1 [facility] Comment on above: Performed By: #### G FR, BMP #### [address] [address] Sodium [Moles/Vol] 142 mmol/L Normal 136-145 [facility] Comment on above: Performed By: #### G FR, BMP #### [address] [place], [place] [address] Urea nitrogen [Mass/Vol] 25 mg/dL High 7-18 [facility] Comment on above: Performed By: #### G , DEVIN #### [address] [place], [place] [address] LABORATORYOrdered By: SYSTEM SYSTEM on 02-13-2025 Calcium [Mass/Vol] 9.3 mg/dL Normal 8.4 - 10. 2 mg/dL AO ADM SS Chloride [Moles/Vol] 105 mmol/L Normal 98 - 10 7 mmol/L AO ADM SS CO2 [Moles/Vol] 32 mmol/L High 23 - 31 mmol/L AO ADM SS Creatinine [Mass/Vol] 1.10 mg/dL High 0.51 - 0.95 mg/dL AO ADM SS Electrolyte Balance 5.0 mEq/L Normal 4.0 - 15 .0 mEq/L AO ADM SS Estimated Glomerular Filtration Rate 53 ml/min/1.73sqm Invalid Interpretation Code AO Chemistry S Comment on above: Interpretive Data: Stages of Chronic Kidney Disease (CKD) Stage Description eGFR(ml/min/1.73 sq.m.) CKD 1 Normal kidney function or >=90 normal kindney function with possible kidney damage (ex. Proteinuria) CKD 2 Kidney damage with mild loss 60-89 of kidney function CKD 3a Mild to moderate loss of kidney 45-59 function CKD 3b Moderate to severe loss of 30-44 of kindey function CKD 4 Severe loss of kidney function 15-29 CKD 5 Kidney failure <15 Note: (go live 2024) the eGFR calculation was updated to the 2020 CKD-EPI creatinine equation without a race factor to calculate the eGFR results. Glucose [Mass/Vol] 89 mg/dL Normal 83 - 110 mg/dL AO ADM SS Potassium [Moles/Vol] 4.7 mmol/L Normal 3.5 - 5.1 mmol/L AO ADM SS Sodium [Moles/Vol] 142 mmol/L Normal 136 - 145 mmol/L AO ADM SS Urea nitrogen [Mass/Vol] 25 mg/dL High 7 - 18 mg/dL AO ADM SS Urea nitrogen/Creatinine [Mass ratio] 23 ratio Normal 7 - 27 ratio AO ADM SS Gastroenterology Visit Repor ton 01-26-2025 Gastroenterology Visit Report Normal [facility] Office Visit Reporton 2024 Office Visit Report Normal [facility] Anion gap in Serum or Plasma Ordered By: Gerri Tejeda on 12-29-2024 Anion gap [Moles/Vol] 8 mmol/L 5-15 [facility] BUN/creatinine ratioOrdered By: Gerri Tejeda on 12-29-2024 Urea nitrogen/Creatinine [Mass ratio] 16.6 mg/mg 10-20 [facility] Bilirubin, totalOrdered By: Gerri Tejeda on 12-29-2024 Bilirubin [Mass/Vol] 0.27 mg/dL 0.00-1.30 [facility] Carbon dioxide, total [Moles /volume] in Central venous bloodOrdered By: Gerri Tejeda on 12-29-2024 CO2 [Moles/Vol] 27.9 mmol/L 21.0-32.0 [facility] Chloride assayOrdered By: José Miguel Tejeda on 12-29-2024 Chloride [Moles/Vol] 105 mmol/L 98-108 [facility] Comprehensive Metabolic Prof ilon 12-29-2024 Albumin [Mass/Vol] 3.7 g/dL Normal 3.4-4.8 [facility] [place] [facility] Comment on above: Performed By: #### L 500.4050 ####[facility] [address] [place], [address] Albumin/Globulin [Mass ratio] 1.4 {ratio} Normal 0.9-2.4 [facility] Comment on above: Performed By: #### L 500.4050 ####[facility] [address] [place], [address] ALK PHOS 58 U/L Normal 35-104 [facility] Comment on above: Performed By: #### L 500.4050 ####[facility] [address] [place], [address] ALT [Catalytic activity/Vol] 14 U/L Normal <=34 [facility] Comment on above: Performed By: #### L 500.4050 ####[facility] [address] [place], [address] AST [Catalytic activity/Vol] 21 U/L Normal <=31 [facility] Comment on above: Performed By: #### L 500.4050 ####[facility] [address] [place], [address] Bilirubin [Mass/Vol] 0.27 mg/dL Normal 0.00-1.30 [facility] Comment on above: Performed By: #### L 500.4050 ####[facility] [address] [place], [address] BUN/CRE 16.6 RATIO Normal 10-20 [facility] Comment on above: Performed By: #### L 500.4050 ####[facility] [address] [place], [address] Calcium [Mass/Vol] 9.2 mg/dL Normal 7.6-11.0 [facility] [place] [facility] Comment on above: Performed By: #### L 500.4050 ####[facility] [address] [place], [address] Chloride [Moles/Vol] 105 mmol/L Normal 98-108 [facility] Comment on above: Performed By: #### L 500.4050 ####[facility] [address] [place], [address] CO2 [Moles/Vol] 27.9 mmol/L Normal 21.0-32.0 [facility] Comment on above: Performed By: #### L 500.4050 ####[facility] [address] [place], [address] Creatinine [Mass/Vol] 1.09 mg/dL Normal 0.70-1.20 [facility] Comment on above: Performed By: #### L 500.4050 ####[facility] [address] [place], [address] GAP 8 Normal 5-15 [facility] Comment on above: Performed By: #### L 500.4050 ####[facility] [address] [place], [address] GFR/1.73 sq M.predicted among non-blacks MDRD (S/P/Bld) [Vol rate/Area] 53 mL/min/{1.73_m2} Low >60 [facility] Comment on above: Result Comment: mL/m in/1.73m2 CKD-EPI Creatinine Equation (2020) Performed By: #### L 500.4050 ####[facility] [address] [place], [address] Globulin (S) [Mass/Vol] 2.6 g/dL Normal 2.2-4.2 [facility] Comment on above: Performed By: #### L 500.4050 ####[facility] [address] [place], [address] Glucose [Mass/Vol] 75 mg/dL Normal 70-99 [facility] [place] [facility] Comment on above: Performed By: #### L 500.4050 ####[facility] [address] [place], [address] Potassium [Moles/Vol] 4.0 mmol/L Normal 3.3-5.1 [facility] Comment on above: Performed By: #### L 500.4050 ####[facility] [address] [place], [address] Sodium [Moles/Vol] 140 mmol/L Normal 133-145 [facility] [place] [facility] Comment on above: Performed By: #### L 500.4050 ####[facility] [address] [place], [address] T PROT 6.2 g/dL Normal 5.9-8.4 [facility] Comment on above: Performed By: #### L 500.4050 ####[facility] [address] [place], [place], [address] Urea nitrogen [Mass/Vol] 18 mg/dL Normal 4-19 [facility] Comment on above: Performed By: #### L 500.4050 ####[facility] [address] [place], [place], [address] Glomerular filtration rate ( GFR) estimation/1.73 sq m using serum, plasma, or whole bOrdered By: Gerri Tejeda on 12-29-2024 GFR/1.73 sq M.predicted among non-blacks MDRD (S/P/Bld) [Vol rate/Area] 53 mL/min/{1.73_m2} Low >60 [facility] Comment on above: mL/min/1.73m2 CKD-EP I Creatinine Equation (2020) Laboratory - Chemistry and C hemistry - challengeOrdered By: Gerri Tejeda on 12-29-2024 AST [Catalytic activity/Vol] 21 U/L <32 [facility] Potassium measurement (mass/ volume)Ordered By: Gerri Tejeda on 12-29-2024 Potassium (Unsp spec) [Mass/Vol] 4.0 mmol/L 3.3-5.1 [facility] Serum creatinine measurement (mass/volume)Ordered By: Gerri Tejeda on 12-29-2024 Creatinine [Mass/Vol] 1.09 mg/dL 0.70-1.20 [facility] Serum globulin measurementOr dered By: Gerri Tejeda on 12-29-2024 Globulin (S) [Mass/Vol] 2.6 g/dL 2.2-4.2 [facility] Serum glucose measurement (m ass/volume)Ordered By: Gerri Tejeda on 12-29-2024 Glucose [Mass/Vol] 75 mg/dL 70-99 [facility] [place] [facility] Serum or plasma alanine cloud otransferase (ALT) measurementOrdered By: Gerri Tejeda on 12-29-2024 ALT [Catalytic activity/Vol] 14 U/L <35 [facility] Serum or plasma albumin leatha urement (mass/volume)Ordered By: Gerri Tejeda on 12-29-2024 Albumin [Mass/Vol] 3.7 g/dL 3.4-4.8 [facility] [place] [facility] Serum or plasma albumin/glob ulin mass ratioOrdered By: Gerri Tejeda on 12-29-2024 Albumin/Globulin [Mass ratio] 1.4 {ratio} 0.9-2.4 [facility] Serum or plasma alkaline kunal sphatase measurementOrdered By: Gerri Tejeda on 12-29-2024 ALP [Catalytic activity/Vol] 58 U/L 35-104 [facility] Serum or plasma calcium leatha urement (mass/volume)Ordered By: Gerri Tejeda on 12-29-2024 Calcium [Mass/Vol] 9.2 mg/dL 7.6-11.0 [facility] [place] [facility] Serum or plasma urea nitroge n measurement (mass/volume)Ordered By: Gerri Tejeda on 12-29-2024 Urea nitrogen [Mass/Vol] 18 mg/dL 4-19 [facility] Sodium levelOrdered By: Kaela Tejeda on 12-29-2024 Sodium [Moles/Vol] 140 mmol/L 133-145 [facility] [place] [facility] Total proteinOrdered By: Mulu Tejeda on 12-29-2024 Protein [Mass/Vol] 6.2 g/dL 5.9-8.4 [facility] [place] [facility] Modified Barium Swallow Stud yon 12-26-2024 Modified Barium Swallow Study Normal [facility] Office Visit Reporton 2024 Office Visit Report Normal [facility] Absolute lymphocyte countOrd ered By: Gerri Tejeda on 11-28-2024 Lymphocytes Auto (Unsp spec) [#/Vol] 0.51 10*3/uL Low 0.83-4.51 [facility] Absolute neutrophil countOrd ered By: Gerri Tejeda on 11-28-2024 Neutrophils (Bld) [#/Vol] 4.0 10*3/uL 2.0-7.7 [facility] Anion gap in Serum or Plasma Ordered By: Gerri Tejeda on 11-28-2024 Anion gap [Moles/Vol] 9 mmol/L 5-15 [facility] Automated lymphocyte count a s percentage of total leukocytesOrdered By: Gerri Tejeda on 11-28-2024 Lymphocytes/100 WBC Auto (Unsp spec) 10.6 % Low 19-41 [facility] BUN/creatinine ratioOrdered By: Gerri Ileana on 11-28-2024 Urea nitrogen/Creatinine [Mass ratio] 15.1 mg/mg 10-20 [facility] Basophil percentageOrdered B y: Gerri Ileana on 11-28-2024 Basophils/100 WBC (Bld) 0.8 % 0-1 [facility] Bilirubin, totalOrdered By: Gerri Tejeda on 11-28-2024 Bilirubin [Mass/Vol] 0.27 mg/dL 0.00-1.30 [facility] CBC W/Diff, Automatedon 11-16-2024 Absolute Lymph 0.51 X10 3/uL Low 0.83-4.51 [facility] Comment on above: Performed By: #### L 500.4050, L100.0100 ####[facility] [address] [place], [address] Absolute Neut 4.0 X10 3/uL Normal 2.0-7.7 [facility] Comment on above: Performed By: #### L 500.4050, L100.0100 ####[facility] [address] [place], [address] Basophils/100 WBC (Bld) 0.8 % Normal 0-1 [facility] Comment on above: Performed By: #### L 500.4050, L100.0100 ####[facility] [address] [place], [address] Eosinophils/100 WBC (Bld) 0.0 % Normal 0-5 [facility] Comment on above: Performed By: #### L 500.4050, L100.0100 ####[facility] [address] [place], [address] Erythrocyte distribution width (RBC) [Ratio] 12.3 % Normal 11.6-14.6 [facility] Comment on above: Performed By: #### L 500.4050, L100.0100 ####[facility] [address] [place], [address] Hematocrit (Bld) [Volume fraction] 35.8 % Low 37-47 [facility] Comment on above: Performed By: #### L 500.4050, L100.0100 ####[facility] [address] [place], [address] Hemoglobin (Bld) [Mass/Vol] 11.6 g/dL Low 12.0-15.0 [facility] Comment on above: Performed By: #### L 500.4050, L100.0100 ####[facility] [address] [place], [address] IG% 0.400 Normal 0.0-0.9 [facility] Comment on above: Result Comment: IG% - Immature Granulocytes (promyelocytes, myelocytes andmetamyelocytes) > 1% indicates that a LEFT SHIFT is Present. Performed By: #### L 500.4050, L100.0100 ####[facility] [address] [place], [address] Lymphocytes/100 WBC (Bld) 10.6 % Low 19-41 [facility] Comment on above: Performed By: #### L 500.4050, L100.0100 ####[facility] [address] [place], [address] MCH (RBC) [Entitic mass] 33.6 pg High 27.0-32.0 [facility] Comment on above: Performed By: #### L 500.4050, L100.0100 ####[facility] [address] [place], [address] MCHC (RBC) [Mass/Vol] 32.4 g/dL Normal 32-36 [facility] Comment on above: Performed By: #### L 500.4050, L100.0100 ####[facility] [address] [place], [address] MCV (RBC) [Entitic vol] 103.8 fL High 81-99 [facility] Comment on above: Performed By: #### L 500.4050, L100.0100 ####[facility] [address] [place], [address] Monocytes/100 WBC (Bld) 4.0 % Normal 0-10 [facility] Comment on above: Performed By: #### L 500.4050, L100.0100 ####[facility] [address] [place], [address] Neutrophils/100 WBC (Bld) 84.2 % High 47-70 [facility] Comment on above: Performed By: #### L 500.4050, L100.0100 ####[facility] [address] [place], [address] Nucleated RBC (Bld) [#/Vol] 0 10*3/uL Normal 0-5 [facility] Comment on above: Performed By: #### L 500.4050, L100.0100 ####[facility] [address] [place], [address] Platelet mean volume (Bld) [Entitic vol] 11.5 fL Normal 6.2-12.0 [facility] Comment on above: Performed By: #### L 500.4050, L100.0100 ####[facility] [address] [place], [address] Platelets (Bld) [#/Vol] 246 10*3/uL Normal 150-450 [facility] Comment on above: Performed By: #### L 500.4050, L100.0100 ####[facility] [address] [place], [address] RBC (Bld) [#/Vol] 3.45 10*6/uL Low 4.2-5.4 [facility] Comment on above: Performed By: #### L 500.4050, L100.0100 ####[facility] [address] [place], [address] RDW SD 46.5 fl High 35.1-43.9 [facility] Comment on above: Performed By: #### L 500.4050, L100.0100 ####[facility] [address] [place], [address] WBC (Bld) [#/Vol] 4.8 10*3/uL Normal 4.4-11.0 [facility] [place] [facility] Comment on above: Performed By: #### L 500.4050, L100.0100 ####[facility] [address] [place], [address] Carbon dioxide, total [Moles /volume] in Central venous bloodOrdered By: Gerri Tejeda on 11-28-2024 CO2 [Moles/Vol] 25.9 mmol/L 21.0-32.0 [facility] Chloride assayOrdered By: José Miguel Tejeda on 11-28-2024 Chloride [Moles/Vol] 106 mmol/L 98-108 [facility] Comprehensive Metabolic Prof ilon 11-28-2024 Albumin [Mass/Vol] 3.9 g/dL Normal 3.4-4.8 [facility] [place] [facility] Comment on above: Performed By: #### L 500.4050, L100.0100 ####[facility] [address] [place], [address] Albumin/Globulin [Mass ratio] 1.5 {ratio} Normal 0.9-2.4 [facility] Comment on above: Performed By: #### L 500.4050, L100.0100 ####[facility] [address] [place], [address] ALK PHOS 105 U/L High 35-104 [facility] Comment on above: Performed By: #### L 500.4050, L100.0100 ####[facility] [address] [place], [address] ALT [Catalytic activity/Vol] 18 U/L Normal <=34 [facility] Comment on above: Performed By: #### L 500.4050, L100.0100 ####[facility] [address] [place], [address] AST [Catalytic activity/Vol] 30 U/L Normal <=31 [facility] Comment on above: Performed By: #### L 500.4050, L100.0100 ####[facility] [address] [place], [address] Bilirubin [Mass/Vol] 0.27 mg/dL Normal 0.00-1.30 [facility] Comment on above: Performed By: #### L 500.4050, L100.0100 ####[facility] [address] [place], [address] BUN/CRE 15.1 RATIO Normal 10-20 [facility] Comment on above: Performed By: #### L 500.4050, L100.0100 ####[facility] [address] [place], [address] Calcium [Mass/Vol] 9.2 mg/dL Normal 7.6-11.0 [facility] [place] [facility] Comment on above: Performed By: #### L 500.4050, L100.0100 ####[facility] [address] [place], [address] Chloride [Moles/Vol] 106 mmol/L Normal 98-108 [facility] Comment on above: Performed By: #### L 500.4050, L100.0100 ####[facility] [address] [place], [address] CO2 [Moles/Vol] 25.9 mmol/L Normal 21.0-32.0 [facility] Comment on above: Performed By: #### L 500.4050, L100.0100 ####[facility] [address] [place], [address] Creatinine [Mass/Vol] 1.16 mg/dL Normal 0.70-1.20 [facility] Comment on above: Performed By: #### L 500.4050, L100.0100 ####[facility] [address] [place], [address] GAP 9 Normal 5-15 [facility] Comment on above: Performed By: #### L 500.4050, L100.0100 ####[facility] [address] [place], [address] GFR/1.73 sq M.predicted among non-blacks MDRD (S/P/Bld) [Vol rate/Area] 49 mL/min/{1.73_m2} Low >60 [facility] Comment on above: Result Comment: mL/m in/1.73m2 CKD-EPI Creatinine Equation (2020) Performed By: #### L 500.4050, L100.0100 ####[facility] [address] [place], [address] Globulin (S) [Mass/Vol] 2.6 g/dL Normal 2.2-4.2 [facility] Comment on above: Performed By: #### L 500.4050, L100.0100 ####[facility] [address] [place], [address] Glucose [Mass/Vol] 143 mg/dL High 70-99 [facility] Comment on above: Performed By: #### L 500.4050, L100.0100 ####[facility] [address] [place], [address] Potassium [Moles/Vol] 4.3 mmol/L Normal 3.3-5.1 [facility] Comment on above: Performed By: #### L 500.4050, L100.0100 ####[facility] [address] [place], [address] Sodium [Moles/Vol] 141 mmol/L Normal 133-145 [facility] Comment on above: Performed By: #### L 500.4050, L100.0100 ####[facility] [address] [place], [address] T PROT 6.5 g/dL Normal 5.9-8.4 [facility] Comment on above: Performed By: #### L 500.4050, L100.0100 ####[facility] [address] [place], [address] Urea nitrogen [Mass/Vol] 18 mg/dL Normal 4-19 [facility] Comment on above: Performed By: #### L 500.4050, L100.0100 ####[facility] [address] [place], [address] Eosinophil percentageOrdered By: Gerri Tejeda on 11-28-2024 Eosinophils/100 WBC (Bld) 0.0 % 0-5 [facility] Erythrocyte distribution wid th ratioOrdered By: Gerri Tejeda on 11-28-2024 Erythrocyte distribution width (RBC) [Ratio] 12.3 % 11.6-14.6 [facility] Erythrocyte distribution wid th standard deviationOrdered By: Gerri Tejeda on 11-28-2024 Erythrocyte distribution width (RBC) [Ratio] 46.5 fl High 35.1-43.9 [facility] Glomerular filtration rate ( GFR) estimation/1.73 sq m using serum, plasma, or whole bOrdered By: Gerri Tejeda on 11-28-2024 GFR/1.73 sq M.predicted among non-blacks MDRD (S/P/Bld) [Vol rate/Area] 49 mL/min/{1.73_m2} Low >60 [facility] Comment on above: mL/min/1.73m2 CKD-EP I Creatinine Equation (2020) Hematocrit Auto (Bld) [Volum e fraction]Ordered By: Gerri Tejeda on 11-28-2024 Hematocrit (Bld) [Volume fraction] 35.8 % Low 37-47 [facility] Hemoglobin measurementOrdere d By: Gerri Tejeda on 11-28-2024 Hemoglobin (Bld) [Mass/Vol] 11.6 g/dL Low 12.0-15.0 [facility] Immature granulocytes/100 WB C Auto (Bld)Ordered By: Gerri Tejeda on 11-28-2024 Immature granulocytes/100 WBC (Bld) 0.400 % 0.0-0.9 [facility] Comment on above: IG% - Immature Granu locytes (promyelocytes, myelocytes and metamyelocytes) > 1% indicates that a LEFT SHIFT is Present. Laboratory - Chemistry and C hemistry - challengeOrdered By: Gerri Tejeda on 11-28-2024 AST [Catalytic activity/Vol] 30 U/L <32 [facility] MCV (mean corpuscular volume ) determinationOrdered By: Gerri Tejeda on 11-28-2024 MCV (RBC) [Entitic vol] 103.8 fL High 81-99 [facility] Mean corpuscular hemoglobin (MCH) determinationOrdered By: Gerri Tejeda on 11-28-2024 MCH (RBC) [Entitic mass] 33.6 pg High 27.0-32.0 [facility] Mean corpuscular hemoglobin concentration (MCHC) determinationOrdered By: Gerri Tejeda on 11-28-2024 MCHC (RBC) [Mass/Vol] 32.4 g/dL 32-36 [facility] Mean platelet volume determi nationOrdered By: Gerri Tejeda on 11-28-2024 Platelet mean volume (Bld) [Entitic vol] 11.5 fL 6.2-12.0 [facility] Monocyte percentageOrdered B y: Gerri Tejeda on 11-28-2024 Monocytes/100 WBC (Bld) 4.0 % 0-10 [facility] Neurology Visit Reporton Neurology Visit Report Normal [facility] Neutrophil percentageOrdered By: Gerri Tejeda on 11-28-2024 Neutrophils/100 WBC (Bld) 84.2 % High 47-70 [facility] Nucleated red blood cell per centageOrdered By: Gerri Tejeda on 11-28-2024 Nucleated RBC/100 WBC (Bld) [Ratio] 0 % 0-5 [facility] Platelet countOrdered By: José Miguel Tejeda on 11-28-2024 Platelets (Bld) [#/Vol] 246 10*3/uL 150-450 [facility] Potassium measurement (mass/ volume)Ordered By: Gerri Tejeda on 11-28-2024 Potassium (Unsp spec) [Mass/Vol] 4.3 mmol/L 3.3-5.1 [facility] RBC Auto (Bld) [#/Vol]Ordere d By: Gerri Tejeda on 11-28-2024 RBC (Bld) [#/Vol] 3.45 10*6/uL Low 4.2-5.4 [facility] Serum creatinine measurement (mass/volume)Ordered By: Gerri Tejeda on 11-28-2024 Creatinine [Mass/Vol] 1.16 mg/dL 0.70-1.20 [facility] Serum globulin measurementOr dered By: Gerri Tejeda on 11-28-2024 Globulin (S) [Mass/Vol] 2.6 g/dL 2.2-4.2 [facility] Serum glucose measurement (m ass/volume)Ordered By: Gerri Tejeda on 11-28-2024 Glucose [Mass/Vol] 143 mg/dL High 70-99 [facility] Serum or plasma alanine cloud otransferase (ALT) measurementOrdered By: Gerri Tejeda on 11-28-2024 ALT [Catalytic activity/Vol] 18 U/L <35 [facility] Serum or plasma albumin leatha urement (mass/volume)Ordered By: Gerri Tejeda on 11-28-2024 Albumin [Mass/Vol] 3.9 g/dL 3.4-4.8 [facility] Serum or plasma albumin/glob ulin mass ratioOrdered By: Greri Tejeda on 11-28-2024 Albumin/Globulin [Mass ratio] 1.5 {ratio} 0.9-2.4 [facility] Serum or plasma alkaline kunal sphatase measurementOrdered By: Gerri Tejeda on 11-28-2024 ALP [Catalytic activity/Vol] 105 U/L High 35-104 [facility] Serum or plasma calcium leatha urement (mass/volume)Ordered By: Gerri Tejeda on 11-28-2024 Calcium [Mass/Vol] 9.2 mg/dL 7.6-11.0 [facility] Serum or plasma urea nitroge n measurement (mass/volume)Ordered By: Gerri Tejeda on 11-28-2024 Urea nitrogen [Mass/Vol] 18 mg/dL 4-19 [facility] Sodium levelOrdered By: Kaela Tejeda on 11-28-2024 Sodium [Moles/Vol] 141 mmol/L 133-145 [facility] Total proteinOrdered By: Mulu Tejeda on 11-28-2024 Protein [Mass/Vol] 6.5 g/dL 5.9-8.4 [facility] White blood cell (WBC) count Ordered By: Gerri Tejeda on 11-28-2024 WBC (Bld) [#/Vol] 4.8 10*3/uL 4.4-11.0 [facility] ACHR AB Modulatingon 025 ACHR AB MODULAT 13 Normal 0-45 [facility] Comment on above: Order Comment: Test( s) [id number] Abwas developed and its performance characteristicsdetermined by [employer]. It has not been cleared or approvedby the Food and Drug Administration. Result Comment: Inte rpretive Information: Negative: 0 - 45% Positive: > 45%No single value for AChR-modulating antibody shouldbe used as a sole basis for diagnosis or responseto therapy. Performed By: #### L 3410.0100, L3300.0600, L3410.0200 ####[facility] [address] [place], [address] ACHR Creative Recruiter AB, Blockingon ACHR TRACK LAYING EQUIPMENT OPERATOR AB 25 Normal 0-25 [facility] Comment on above: Order Comment: Test( s) [id number]-[id number] Blocking Abs, SerumThis test was developed and its performance characteristicsdetermined by [employer]. It has not been cleared orapproved by the Food and Drug Administration. Result Comment: Nega tive: 0 - 25 Borderline: 26 - 30 Positive: >30Performed at: [address] [id number] Director: Ava Jason MD, Phone: [phone] Performed By: #### L 3410.0100, L3300.0600, L3410.0200 ####[facility] [address] [place], [place], [id number] Acetylcholine Receptoron ACHR AB < 0.07 Normal 0.00-0.24 [facility] Comment on above: Order Comment: Test( s) [id number] Blocking Abs, SerumThis test was developed and its performance characteristicsdetermined by [facility]. It has not been cleared orapproved by the Food and Drug Administration.N Result Comment: Nega tive: 0.00 - 0.24 Borderline: 0.25 - 0.40 Positive: >0.40 Performed By: #### L 3410.0100, L3300.0600, L3410.0200 ####[facility] [address] [place], [place], [id number] Pulmonary Visit Reporton Pulmonary Visit Report Normal [facility] Office Visit Reporton 2024 Office Visit Report Normal [facility] L/S Spine Min 4 Viewson 10-18 L/S Spine Min 4 Views Normal [facility] Serum acetylcholine receptor modulation antibody/total acetylcholine antibody ratio (Ordered By: Hoang Ugarte on 11-14-2024 Acetylcholine receptor modulation Ab/Acetylcholine Ab.total (S) [Molar fraction] 13 % 0-45 [facility] Comment on above: Interpretive Informa tion: Negative: 0 - 45% Positive: > 45%No single value for AChR-modulating antibody shouldbe used as a sole basis for diagnosis or responseto therapy. Office Visit Reporton 2024 Office Visit Report Normal [facility] Absolute lymphocyte countOrd ered By: Gerri Tejeda on 09-27-2024 Lymphocytes Auto (Unsp spec) [#/Vol] 0.92 10*3/uL 0.83-4.51 [facility] Absolute neutrophil countOrd ered By: Gerri Tejeda on 09-27-2024 Neutrophils (Bld) [#/Vol] 3.3 10*3/uL 2.0-7.7 [facility] Anion gap in Serum or Plasma Ordered By: Gerri Tejeda on 09-27-2024 Anion gap [Moles/Vol] 9 mmol/L 5-15 [facility] Automated lymphocyte count a s percentage of total leukocytesOrdered By: Gerri Tejeda on 09-27-2024 Lymphocytes/100 WBC Auto (Unsp spec) 18.7 % Low 19-41 [facility] BUN/creatinine ratioOrdered By: [facility] Ileana on 09-27-2024 Urea nitrogen/Creatinine [Mass ratio] 12.7 mg/mg 10-20 [facility] Basophil percentageOrdered B y: Gerri Tejeda on 09-27-2024 Basophils/100 WBC (Bld) 0.8 % 0-1 [facility] Bilirubin, totalOrdered By: Gerri Tejeda on 09-27-2024 Bilirubin [Mass/Vol] 0.25 mg/dL 0.00-1.30 [facility] CBC W/Diff, Automatedon 09-16 Absolute Lymph 0.92 X10 3/uL Normal 0.83-4.51 [facility] Comment on above: Performed By: #### L 100.0100, L500.4050 ####[facility] [address] [place], [address] Absolute Neut 3.3 X10 3/uL Normal 2.0-7.7 [facility] Comment on above: Performed By: #### L 100.0100, L500.4050 ####[facility] [address] [place], [address] Basophils/100 WBC (Bld) 0.8 % Normal 0-1 [facility] Comment on above: Performed By: #### L 100.0100, L500.4050 ####[facility] [address] [place], [address] Eosinophils/100 WBC (Bld) 2.6 % Normal 0-5 [facility] Comment on above: Performed By: #### L 100.0100, L500.4050 ####[facility] [address] [place], [address] Erythrocyte distribution width (RBC) [Ratio] 13.0 % Normal 11.6-14.6 [facility] Comment on above: Performed By: #### L 100.0100, L500.4050 ####[facility] [address] [place], [address] Hematocrit (Bld) [Volume fraction] 37.5 % Normal 37-47 [facility] Comment on above: Performed By: #### L 100.0100, L500.4050 ####[facility] [address] [place], [address] Hemoglobin (Bld) [Mass/Vol] 12.0 g/dL Normal 12.0-15.0 [facility] Comment on above: Performed By: #### L 100.0100, L500.4050 ####[facility] [address] [place], [address] IG% 0.400 Normal 0.0-0.9 [facility] Comment on above: Result Comment: IG% - Immature Granulocytes (promyelocytes, myelocytes andmetamyelocytes) > 1% indicates that a LEFT SHIFT is Present. Performed By: #### L 100.0100, L500.4050 ####[facility] [address] [place], [address] Lymphocytes/100 WBC (Bld) 18.7 % Low 19-41 [facility] Comment on above: Performed By: #### L 100.0100, L500.4050 ####[facility] [address] [place], [address] MCH (RBC) [Entitic mass] 33.5 pg High 27.0-32.0 [facility] Comment on above: Performed By: #### L 100.0100, L500.4050 ####[facility] [address] [place], [id number] MCHC (RBC) [Mass/Vol] 32.0 g/dL Normal 32-36 [facility] Comment on above: Performed By: #### L 100.0100, L500.4050 ####[facility] [address] [place], [address] MCV (RBC) [Entitic vol] 104.7 fL High 81-99 [facility] Comment on above: Performed By: #### L 100.0100, L500.4050 ####[facility] [address] [place], [address] Monocytes/100 WBC (Bld) 11.2 % High 0-10 [facility] Comment on above: Performed By: #### L 100.0100, L500.4050 ####[facility] [address] [place], [address] Neutrophils/100 WBC (Bld) 66.3 % Normal 47-70 [facility] Comment on above: Performed By: #### L 100.0100, L500.4050 ####[facility] [address] [place], [address] Nucleated RBC (Bld) [#/Vol] 0 10*3/uL Normal 0-5 [facility] Comment on above: Performed By: #### L 100.0100, L500.4050 ####[facility] [address] [place], [address] Platelet mean volume (Bld) [Entitic vol] 10.5 fL Normal 6.2-12.0 [facility] Comment on above: Performed By: #### L 100.0100, L500.4050 ####[facility] [address] [place], [address] Platelets (Bld) [#/Vol] 299 10*3/uL Normal 150-450 [facility] Comment on above: Performed By: #### L 100.0100, L500.4050 ####[facility] [address] [place], [address] RBC (Bld) [#/Vol] 3.58 10*6/uL Low 4.2-5.4 [facility] Comment on above: Performed By: #### L 100.0100, L500.4050 ####[facility] [address] [place], [address] RDW SD 49.4 fl High 35.1-43.9 [facility] Comment on above: Performed By: #### L 100.0100, L500.4050 ####[facility] [address] [place], [address] WBC (Bld) [#/Vol] 4.9 10*3/uL Normal 4.4-11.0 [facility] Comment on above: Performed By: #### L 100.0100, L500.4050 ####[facility] [address] [place], [address] Carbon dioxide, total [Moles /volume] in Central venous bloodOrdered By: Gerri Tejeda on 09-27-2024 CO2 [Moles/Vol] 27.7 mmol/L 21.0-32.0 [facility] Chloride assayOrdered By: José Miguel Tejeda on 09-27-2024 Chloride [Moles/Vol] 107 mmol/L 98-108 [facility] Comprehensive Metabolic Prof ilon 09-27-2024 Albumin [Mass/Vol] 3.8 g/dL Normal 3.4-4.8 [facility] Comment on above: Performed By: #### L 100.0100, L500.4050 ####[facility] [address] [place], [address] Albumin/Globulin [Mass ratio] 1.5 {ratio} Normal 0.9-2.4 [facility] Comment on above: Performed By: #### L 100.0100, L500.4050 ####[facility] [address] [place], [address] ALK PHOS 57 U/L Normal 35-104 [facility] Comment on above: Performed By: #### L 100.0100, L500.4050 ####[facility] [address] [place], [address] ALT [Catalytic activity/Vol] 13 U/L Normal <=34 [facility] Comment on above: Performed By: #### L 100.0100, L500.4050 ####[facility] [address] [place], [address] AST [Catalytic activity/Vol] 22 U/L Normal <=31 [facility] Comment on above: Performed By: #### L 100.0100, L500.4050 ####[facility] [address] [place], [address] Bilirubin [Mass/Vol] 0.25 mg/dL Normal 0.00-1.30 [facility] Comment on above: Performed By: #### L 100.0100, L500.4050 ####[facility] [address] [place], [address] BUN/CRE 12.7 RATIO Normal 10-20 [facility] Comment on above: Performed By: #### L 100.0100, L500.4050 ####[facility] [address] [place], [address] Calcium [Mass/Vol] 9.2 mg/dL Normal 7.6-11.0 [facility] Comment on above: Performed By: #### L 100.0100, L500.4050 ####[facility] [address] [place], [address] Chloride [Moles/Vol] 107 mmol/L Normal 98-108 [facility] Comment on above: Performed By: #### L 100.0100, L500.4050 ####[facility] [address] [place], [address] CO2 [Moles/Vol] 27.7 mmol/L Normal 21.0-32.0 [facility] Comment on above: Performed By: #### L 100.0100, L500.4050 ####[facility] [address] [place], [address] Creatinine [Mass/Vol] 0.97 mg/dL Normal 0.70-1.20 [facility] Comment on above: Performed By: #### L 100.0100, L500.4050 ####[facility] [address] [place], [address] GAP 9 Normal 5-15 [facility] Comment on above: Performed By: #### L 100.0100, L500.4050 ####[facility] [address] [place], [address] GFR/1.73 sq M.predicted among non-blacks MDRD (S/P/Bld) [Vol rate/Area] 61 mL/min/{1.73_m2} Normal >60 [facility] Comment on above: Result Comment: mL/m in/1.73m2 CKD-EPI Creatinine Equation (2020) Performed By: #### L 100.0100, L500.4050 ####[facility] [address] [place], [address] Globulin (S) [Mass/Vol] 2.5 g/dL Normal 2.2-4.2 [facility] Comment on above: Performed By: #### L 100.0100, L500.4050 ####[facility] [address] [place], [address] Glucose [Mass/Vol] 93 mg/dL Normal 70-99 [facility] Comment on above: Performed By: #### L 100.0100, L500.4050 ####[facility] [address] [place], [address] Potassium [Moles/Vol] 4.1 mmol/L Normal 3.3-5.1 [facility] Comment on above: Performed By: #### L 100.0100, L500.4050 ####[facility] [address] [place], [address] Sodium [Moles/Vol] 143 mmol/L Normal 133-145 [facility] Comment on above: Performed By: #### L 100.0100, L500.4050 ####[facility] [address] [place], [address] T PROT 6.2 g/dL Normal 5.9-8.4 [facility] Comment on above: Performed By: #### L 100.0100, L500.4050 ####[facility] [address] [place], [address] Urea nitrogen [Mass/Vol] 12 mg/dL Normal 4-19 [facility] Comment on above: Performed By: #### L 100.0100, L500.4050 ####[facility] [address] [place], [address] Eosinophil percentageOrdered By: Gerri Tejeda on 09-27-2024 Eosinophils/100 WBC (Bld) 2.6 % 0-5 [facility] Erythrocyte distribution wid th ratioOrdered By: Gerri Tejeda on 09-27-2024 Erythrocyte distribution width (RBC) [Ratio] 13.0 % 11.6-14.6 [facility] Erythrocyte distribution wid th standard deviationOrdered By: Gerri Tejeda on 09-27-2024 Erythrocyte distribution width (RBC) [Entitic vol] 49.4 fL High 35.1-43.9 [facility] Erythrocyte distribution width (RBC) [Ratio] 49.4 fl High 35.1-43.9 [facility] GFR/1.73 sq M.predicted jb g non-blacks MDRD (S/P/Bld) [Vol rate/Area]Ordered By: Gerri Tejeda on 09-27-2024 Estimated GFR (MDRD) Non-Af Amer 61 >60 [facility] Comment on above: mL/min/1.73m2 CKD-EP I Creatinine Equation (2020) Gastroenterology Visit Repor ton 09-27-2024 Gastroenterology Visit Report Normal [facility] Glomerular filtration rate ( GFR) estimation/1.73 sq m using serum, plasma, or whole bOrdered By: Gerri Tejeda on 09-27-2024 GFR/1.73 sq M.predicted among non-blacks MDRD (S/P/Bld) [Vol rate/Area] 61 mL/min/{1.73_m2} >60 [facility] Comment on above: mL/min/1.73m2 CKD-EP I Creatinine Equation (2020) Hematocrit Auto (Bld) [Volum e fraction]Ordered By: Gerri Tejeda on 09-27-2024 Hematocrit (Bld) [Volume fraction] 37.5 % 37-47 [facility] Hemoglobin measurementOrdere d By: Gerri Tejeda on 09-27-2024 Hemoglobin (Bld) [Mass/Vol] 12.0 g/dL 12.0-15.0 [facility] Immature granulocytes/100 WB C Auto (Bld)Ordered By: Gerri Tejeda on 09-27-2024 Immature granulocytes/100 WBC (Bld) 0.400 % 0.0-0.9 [facility] Comment on above: IG% - Immature Granu locytes (promyelocytes, myelocytes and metamyelocytes) > 1% indicates that a LEFT SHIFT is Present. Laboratory - Chemistry and C hemistry - challengeOrdered By: Gerri Tejeda on 09-27-2024 AST [Catalytic activity/Vol] 22 U/L <32 [facility] Lymphocytes Auto (Unsp spec) [#/Vol]Ordered By: Gerri Tejeda on 09-27-2024 Lymphocytes (Bld) [#/Vol] 0.92 10*3/uL 0.83-4.51 [facility] Lymphocytes/100 WBC Auto (Un sp spec)Ordered By: Gerri Tejeda on 09-27-2024 Lymphocytes/100 WBC (Bld) 18.7 % Low 19-41 [facility] MCV (mean corpuscular volume ) determinationOrdered By: Gerri Tejeda on 09-27-2024 MCV (RBC) [Entitic vol] 104.7 fL High 81-99 [facility] Mean corpuscular hemoglobin (MCH) determinationOrdered By: Gerri Tejeda on 09-27-2024 MCH (RBC) [Entitic mass] 33.5 pg High 27.0-32.0 [facility] Mean corpuscular hemoglobin concentration (MCHC) determinationOrdered By: Gerri Tejeda on 09-27-2024 MCHC (RBC) [Mass/Vol] 32.0 g/dL 32-36 [facility] Mean platelet volume determi nationOrdered By: Gerri Tejeda on 09-27-2024 Platelet mean volume (Bld) [Entitic vol] 10.5 fL 6.2-12.0 [facility] Monocyte percentageOrdered B y: Gerri Tejeda on 09-27-2024 Monocytes/100 WBC (Bld) 11.2 % High 0-10 [facility] Neutrophil percentageOrdered By: Gerri Tejeda on 09-27-2024 Neutrophils/100 WBC (Bld) 66.3 % 47-70 [facility] Nucleated red blood cell per centageOrdered By: Gerri Tejeda on 09-27-2024 Nucleated RBC/100 WBC (Bld) [Ratio] 0 % 0-5 [facility] Platelet countOrdered By: José Miguel Tejeda on 09-27-2024 Platelets (Bld) [#/Vol] 299 10*3/uL 150-450 [facility] Potassium (Unsp spec) [Mass/ Vol]Ordered By: Gerri Tejeda on 09-27-2024 Potassium [Moles/Vol] 4.1 mmol/L 3.3-5.1 [facility] Potassium measurement (mass/ volume)Ordered By: Gerri Tejeda on 09-27-2024 Potassium (Unsp spec) [Mass/Vol] 4.1 mmol/L 3.3-5.1 [facility] RBC Auto (Bld) [#/Vol]Ordere d By: Gerri Tejeda on 09-27-2024 RBC (Bld) [#/Vol] 3.58 10*6/uL Low 4.2-5.4 [facility] Serum creatinine measurement (mass/volume)Ordered By: Gerri Tejeda on 09-27-2024 Creatinine [Mass/Vol] 0.97 mg/dL 0.70-1.20 [facility] Serum globulin measurementOr dered By: Gerri Tejeda on 09-27-2024 Globulin (S) [Mass/Vol] 2.5 g/dL 2.2-4.2 [facility] Serum glucose measurement (m ass/volume)Ordered By: Gerri Tejeda on 09-27-2024 Glucose [Mass/Vol] 93 mg/dL 70-99 [facility] Serum or plasma alanine cloud otransferase (ALT) measurementOrdered By: Gerri Tejeda on 09-27-2024 ALT [Catalytic activity/Vol] 13 U/L <35 [facility] Serum or plasma albumin leatha urement (mass/volume)Ordered By: Gerri Tejeda on 09-27-2024 Albumin [Mass/Vol] 3.8 g/dL 3.4-4.8 [facility] Serum or plasma albumin/glob ulin mass ratioOrdered By: Gerri Tejeda on 09-27-2024 Albumin/Globulin [Mass ratio] 1.5 {ratio} 0.9-2.4 [facility] Serum or plasma alkaline kunal sphatase measurementOrdered By: Gerri Tejeda on 09-27-2024 ALP [Catalytic activity/Vol] 57 U/L 35-104 [facility] Serum or plasma calcium leatha urement (mass/volume)Ordered By: Gerri Tejeda on 09-27-2024 Calcium [Mass/Vol] 9.2 mg/dL 7.6-11.0 [facility] Serum or plasma urea nitroge n measurement (mass/volume)Ordered By: Gerri Tejeda on 09-27-2024 Urea nitrogen [Mass/Vol] 12 mg/dL 4-19 [facility] Sodium levelOrdered By: Kaela Tejeda on 09-27-2024 Sodium [Moles/Vol] 143 mmol/L 133-145 [facility] Total proteinOrdered By: Mulu Tejeda on 09-27-2024 Protein [Mass/Vol] 6.2 g/dL 5.9-8.4 [facility] White blood cell (WBC) count Ordered By: Gerri Tejeda on 09-27-2024 WBC (Bld) [#/Vol] 4.9 10*3/uL 4.4-11.0 [facility] OT D/C Summaryon 09-20-2024 OT D/C Summary Normal [facility] OT D/C of Non Returning Pton 09-20-2024 OT D/C of Non Returning Pt Normal [facility] Office Visit Reporton 2024 Office Visit Report Normal [facility] Re-Evalution OTon 08-10-2024 Re-Evalution OT Normal [facility] Dexa Bone Density Studyon Dexa Bone Density Study Normal [facility] HIP, UNI W/ Pelvis 2-3 Views on 07-31-2024 HIP, UNI W/ Pelvis 2-3 Views [facility] Neurology Visit Reporton Neurology Visit Report Normal [facility] Colonoscopy Reporton 025 Colonoscopy Report Normal [facility] MR/POSTOP.ANEon 07-27-2024 MR/POSTOP.ANE Normal [facility] MR/[id number] 07-27-2024 MR/POSTOPAN2 [facility] Surgery Specimen Level Pipe 07-27-2024 Surgery Specimen Level IV [facility] Comment on above: Performed By: #### P SUIV ####[facility] [address] [place], [address] MR/PAT.ANEon 07-26-2024 MR/PAT.ANE Normal [facility] Re-Evalution OTon 07-20-2024 Re-Evalution OT Normal [facility] PT D/C Summary (1)on 024 PT D/C Summary (1) Normal [facility] Ferritinon 06-27-2024 Ferritin [Mass/Vol] 389 ng/mL High 8-252 [facility] Comment on above: Performed By: #### L 503.6550, L597.2250 ####[facility] [address] [place], [place], [address] Ferritin measurementOrdered By: Audelia Mace on 06-27-2024 Ferritin [Mass/Vol] 389 ng/mL High 8-252 [facility] Ironon 06-27-2024 Iron [Mass/Vol] 70 ug/dL Normal 50-170 [facility] Comment on above: Performed By: #### L 503.6550, L552.1650 ####[facility] [address] [place], [place], [address] Iron (Unsp spec) [Mass/Mass] Ordered By: Audelia Mace on 06-27-2024 Iron [Mass/Vol] 70 ug/dL 50-170 [facility] Office Visit Reporton 2023 Office Visit Report Normal [facility] SCRN MAMM (CAD)W/SARATH BILATo n 06-23-2024 SCRN MAMM (CAD)W/SARATH BILAT Normal [facility] Absolute neutrophil countOrd ered By: Gerri Tejeda on 06-21-2024 Neutrophils (Bld) [#/Vol] 3.4 10*3/uL 2.0-7.7 [facility] Albumin to globulin ratioOrd ered By: Gerri Tejeda on 06-21-2024 Albumin/Globulin [Mass ratio] 1.0 {ratio} 0.9-2.4 [facility] Basophil percentageOrdered B y: Gerri Tejeda on 06-21-2024 Basophils/100 WBC (Bld) 1.1 % High 0-1 [facility] Bilirubin, totalOrdered By: Gerri Tejeda on 06-21-2024 Bilirubin [Mass/Vol] 0.60 mg/dL 0.20-1.00 [facility] Comment on above: For patients on eltr ombopag therapy, use of Dimension [place] TBIL is not recommended. Blood urea nitrogen (BUN)/cr eatinine ratioOrdered By: Gerri Tejeda on 06-21-2024 Urea nitrogen/Creatinine [Mass ratio] 13.5 mg/mg 10-20 [facility] CBC W/Diff, Automatedon Absolute Lymph 1.51 X10 3/uL Normal 0.83-4.51 [facility] Comment on above: Performed By: #### L 100.0100, L500.4050 ####[facility] [address] [place], [address] Absolute Neut 3.4 X10 3/uL Normal 2.0-7.7 [facility] Comment on above: Performed By: #### L 100.0100, L500.4050 ####[facility] [address] [place], [address] Basophils/100 WBC (Bld) 1.1 % High 0-1 [facility] Comment on above: Performed By: #### L 100.0100, L500.4050 ####[facility] [address] [place], [address] Eosinophils/100 WBC (Bld) 1.8 % Normal 0-5 [facility] Comment on above: Performed By: #### L 100.0100, L500.4050 ####[facility] [address] [place], [address] Erythrocyte distribution width (RBC) [Ratio] 12.2 % Normal 11.6-14.6 [facility] Comment on above: Performed By: #### L 100.0100, L500.4050 ####[facility] [address] [place], [address] Hematocrit (Bld) [Volume fraction] 37.0 % Normal 37-47 [facility] Comment on above: Performed By: #### L 100.0100, L500.4050 ####[facility] [address] [place], [address] Hemoglobin (Bld) [Mass/Vol] 11.8 g/dL Low 12.0-15.0 [facility] Comment on above: Performed By: #### L 100.0100, L500.4050 ####[facility] [address] [place], [address] IG% 0.400 Normal 0.0-0.9 [facility] Comment on above: Result Comment: IG% - Immature Granulocytes (promyelocytes, myelocytes andmetamyelocytes) > 1% indicates that a LEFT SHIFT is Present. Performed By: #### L 100.0100, L500.4050 ####[facility] [address] [place], [address] Lymphocytes/100 WBC (Bld) 27.6 % Normal 19-41 [facility] Comment on above: Performed By: #### L 100.0100, L500.4050 ####[facility] [address] [place], [address] MCH (RBC) [Entitic mass] 32.5 pg High 27.0-32.0 [facility] Comment on above: Performed By: #### L 100.0100, L500.4050 ####[facility] [address] [place], [address] MCHC (RBC) [Mass/Vol] 31.9 g/dL Low 32-36 [facility] Comment on above: Performed By: #### L 100.0100, L500.4050 ####[facility] [address] [place], [address] MCV (RBC) [Entitic vol] 101.9 fL High 81-99 [facility] Comment on above: Performed By: #### L 100.0100, L500.4050 ####[facility] [address] [place], [id number] Monocytes/100 WBC (Bld) 7.3 % Normal 0-10 [facility] Comment on above: Performed By: #### L 100.0100, L500.4050 ####[facility] [address] [place], [id number] Neutrophils/100 WBC (Bld) 61.8 % Normal 47-70 [facility] Comment on above: Performed By: #### L 100.0100, L500.4050 ####[facility] [address] [place], [address] Nucleated RBC (Bld) [#/Vol] 0 10*3/uL Normal 0-5 [facility] Comment on above: Performed By: #### L 100.0100, L500.4050 ####[facility] [address] [place], [address] Platelet mean volume (Bld) [Entitic vol] 10.5 fL Normal 6.2-12.0 [facility] Comment on above: Performed By: #### L 100.0100, L500.4050 ####[facility] [address] [place], [address] Platelets (Bld) [#/Vol] 300 10*3/uL Normal 150-450 [facility] Comment on above: Performed By: #### L 100.0100, L500.4050 ####[facility] [address] [place], [address] RBC (Bld) [#/Vol] 3.63 10*6/uL Low 4.2-5.4 [facility] Comment on above: Performed By: #### L 100.0100, L500.4050 ####[facility] [address] [place], [id number] RDW SD 45.3 fl High 35.1-43.9 [facility] Comment on above: Performed By: #### L 100.0100, L500.4050 ####[facility] [address] [place], [address] WBC (Bld) [#/Vol] 5.5 10*3/uL Normal 4.4-11.0 [facility] Comment on above: Performed By: #### L 100.0100, L500.4050 ####[facility] [address] [place], [address] Carbon dioxide measurementOr dered By: Gerri Tejeda on 06-21-2024 CO2 [Moles/Vol] 30.0 mmol/L 21.0-32.0 [facility] Chloride measurementOrdered By: Gerri Tejeda on 06-21-2024 Chloride [Moles/Vol] 103 mmol/L 98-107 [facility] Comprehensive Metabolic Prof ilon 06-21-2024 Albumin [Mass/Vol] 3.3 g/dL Normal 3.2-5.0 [facility] Comment on above: Performed By: #### L 100.0100, L500.4050 ####[facility] [address] [place], [address] Albumin/Globulin [Mass ratio] 1.0 {ratio} Normal 0.9-2.4 [facility] Comment on above: Performed By: #### L 100.0100, L500.4050 ####[facility] [address] [place], [address] ALK P 47 U/L Normal 45-117 [facility] Comment on above: Performed By: #### L 100.0100, L500.4050 ####[facility] [address] [place], [address] ALT [Catalytic activity/Vol] 21 U/L Normal 13-56 [facility] Comment on above: Performed By: #### L 100.0100, L500.4050 ####[facility] [address] [place], [address] AST [Catalytic activity/Vol] 21 U/L Normal 15-37 [facility] Comment on above: Performed By: #### L 100.0100, L500.4050 ####[facility] [address] [place], [address] Bilirubin [Mass/Vol] 0.60 mg/dL Normal 0.20-1.00 [facility] Comment on above: Result Comment: For patients on eltrombopag therapy, use of Dimension [place] TBIL is not recommended. Performed By: #### L 100.0100, L500.4050 ####[facility] [address] [place], [address] BUN/CRE 13.5 RATIO Normal 10-20 [facility] Comment on above: Performed By: #### L 100.0100, L500.4050 ####[facility] [address] [place], [address] CA,Total 9.4 mg/dL Normal 8.5-10.1 [facility] Comment on above: Performed By: #### L 100.0100, L500.4050 ####[facility] [address] [place], [address] Chloride [Moles/Vol] 103 mmol/L Normal 98-107 [facility] Comment on above: Performed By: #### L 100.0100, L500.4050 ####[facility] [address] [place], [address] CO2 [Moles/Vol] 30.0 mmol/L Normal 21.0-32.0 [facility] Comment on above: Performed By: #### L 100.0100, L500.4050 ####[facility] [address] [place], [address] Creatinine [Mass/Vol] 1.04 mg/dL High 0.55-1.02 [facility] Comment on above: Result Comment: The validity of the calculated GFR GFRAA in patients over70 years has not been determined. Clinical correlation isessential. Performed By: #### L 100.0100, L500.4050 ####[facility] [address] [place], [address] EST GFR - AA 67 mL/min Normal >60 [facility] Comment on above: Result Comment: Afri can Spanish GFR Calc Performed By: #### L 100.0100, L500.4050 ####[facility] [address] [place], [address] GAP 7 Normal 5-15 [facility] Comment on above: Performed By: #### L 100.0100, L500.4050 ####[facility] [address] [place], [address] GFR/1.73 sq M.predicted among non-blacks MDRD (S/P/Bld) [Vol rate/Area] 55 mL/min/{1.73_m2} Low >60 [facility] Comment on above: Result Comment: Non- GFR Calc Performed By: #### L 100.0100, L500.4050 ####[facility] [address] [place], [address] Globulin (S) [Mass/Vol] 3.4 g/dL Normal 2.2-4.2 [facility] Comment on above: Performed By: #### L 100.0100, L500.4050 ####[facility] [address] [place], [address] Glucose [Mass/Vol] 86 mg/dL Normal 74-106 [facility] Comment on above: Performed By: #### L 100.0100, L500.4050 ####[facility] [address] [place], [address] Potassium [Moles/Vol] 3.8 mmol/L Normal 3.5-5.1 [facility] Comment on above: Performed By: #### L 100.0100, L500.4050 ####[facility] [address] [place], [address] Sodium [Moles/Vol] 140 mmol/L Normal 136-145 [facility] Comment on above: Performed By: #### L 100.0100, L500.4050 ####[facility] [address] [place], [address] T PROT 6.7 g/dL Normal 6.4-8.2 [facility] Comment on above: Performed By: #### L 100.0100, L500.4050 ####[facility] [address] [place], [address] Urea nitrogen [Mass/Vol] 14 mg/dL Normal 7-18 [facility] Comment on above: Performed By: #### L 100.0100, L500.4050 ####[facility] [address] [place], [address] Eosinophil percentageOrdered By: Gerri Tejeda on 06-21-2024 Eosinophils/100 WBC (Bld) 1.8 % 0-5 [facility] Erythrocyte distribution wid th ratioOrdered By: Gerri Tejeda on 06-21-2024 Erythrocyte distribution width (RBC) [Ratio] 12.2 % 11.6-14.6 [facility] Erythrocyte distribution wid th standard deviationOrdered By: Gerri Tejeda on 06-21-2024 Erythrocyte distribution width (RBC) [Entitic vol] 45.3 fL High 35.1-43.9 [facility] Estimated glomerular filtrat ion rate (GFR) AmericanOrdered By: Gerri Tejeda on 06-21-2024 Estimated GFR (MDRD) Amer 67 mL/min >60 [facility] Comment on above: GFR Calc Glomerular filtration rate ( GFR) estimationOrdered By: Gerri Tejeda on 06-21-2024 Estimated GFR (MDRD) Non-Af Amer 55 mL/min Low >60 [facility] Comment on above: Non- GFR Calc Glucose measurementOrdered B y: Gerri Tejeda on 06-21-2024 Glucose [Mass/Vol] 86 mg/dL 74-106 [facility] Hematocrit Auto (Bld) [Volum e fraction]Ordered By: Gerri Tejeda on 06-21-2024 Hematocrit (Bld) [Volume fraction] 37.0 % 37-47 [facility] Hemoglobin measurementOrdere d By: Gerri Tejeda on 06-21-2024 Hemoglobin (Bld) [Mass/Vol] 11.8 g/dL Low 12.0-15.0 [facility] Immature granulocytes/100 WB C Auto (Bld)Ordered By: Gerri Tejeda on 06-21-2024 Immature granulocytes/100 WBC (Bld) 0.400 % 0.0-0.9 [facility] Comment on above: IG% - Immature Granu locytes (promyelocytes, myelocytes and metamyelocytes) > 1% indicates that a LEFT SHIFT is Present. Laboratory - Chemistry and C hemistry - challengeOrdered By: Gerri Tejeda on 06-21-2024 AST [Catalytic activity/Vol] 21 U/L 15-37 [facility] Lymphocytes Auto (Unsp spec) [#/Vol]Ordered By: Gerripriscilla Tejeda on 06-21-2024 Lymphocytes (Bld) [#/Vol] 1.51 10*3/uL 0.83-4.51 [facility] Lymphocytes/100 WBC Auto (Un sp spec)Ordered By: Gerri Tejeda on 06-21-2024 Lymphocytes/100 WBC (Bld) 27.6 % 19-41 [facility] MCV (mean corpuscular volume ) determinationOrdered By: Gerri Tejeda on 06-21-2024 MCV (RBC) [Entitic vol] 101.9 fL High 81-99 [facility] Mean corpuscular hemoglobin (MCH) determinationOrdered By: Gerri Tejeda on 06-21-2024 MCH (RBC) [Entitic mass] 32.5 pg High 27.0-32.0 [facility] Mean corpuscular hemoglobin concentration (MCHC) determinationOrdered By: Gerri Tejeda on 06-21-2024 MCHC (RBC) [Mass/Vol] 31.9 g/dL Low 32-36 [facility] Mean platelet volume determi nationOrdered By: Gerri Tejeda on 06-21-2024 Platelet mean volume (Bld) [Entitic vol] 10.5 fL 6.2-12.0 [facility] Monocyte percentageOrdered B y: Gerri Tejeda on 06-21-2024 Monocytes/100 WBC (Bld) 7.3 % 0-10 [facility] Neutrophil percentageOrdered By: Gerri Tejeda on 06-21-2024 Neutrophils/100 WBC (Bld) 61.8 % 47-70 [facility] Nucleated red blood cell per centageOrdered By: Gerri Tejeda on 06-21-2024 Nucleated RBC/100 WBC (Bld) [Ratio] 0 % 0-5 [facility] Platelet countOrdered By: José Miguel Tejeda on 06-21-2024 Platelets (Bld) [#/Vol] 300 10*3/uL 150-450 [facility] Potassium measurementOrdered By: Gerri Tejeda on 06-21-2024 Potassium [Moles/Vol] 3.8 mmol/L 3.5-5.1 [facility] RBC Auto (Bld) [#/Vol]Ordere d By: Gerri Tejeda on 06-21-2024 RBC (Bld) [#/Vol] 3.63 10*6/uL Low 4.2-5.4 [facility] Serum anion gap measurementO rdered By: Gerri Tejeda on 06-21-2024 Anion gap [Moles/Vol] 7 mmol/L 5-15 [facility] Serum globulin measurementOr dered By: Gerri Tejeda on 06-21-2024 Globulin (S) [Mass/Vol] 3.4 g/dL 2.2-4.2 [facility] Serum or plasma alanine cloud otransferase (ALT) measurementOrdered By: Gerri Tejeda on 06-21-2024 ALT [Catalytic activity/Vol] 21 U/L 13-56 [facility] Serum or plasma albumin leatha urement (mass/volume)Ordered By: Gerri Tejeda on 06-21-2024 Albumin [Mass/Vol] 3.3 g/dL 3.2-5.0 [facility] Serum or plasma alkaline kunal sphatase measurementOrdered By: Gerri Tejeda on 06-21-2024 ALP [Catalytic activity/Vol] 47 U/L 45-117 [facility] Serum or plasma calcium leatha urement (mass/volume)Ordered By: Gerri Tejeda on 06-21-2024 Calcium [Mass/Vol] 9.4 mg/dL 8.5-10.1 [facility] Serum or plasma creatinine m easurement (mass/volume)Ordered By: Gerri Tejeda on 06-21-2024 Creatinine [Mass/Vol] 1.04 mg/dL High 0.55-1.02 [facility] Comment on above: The validity of the calculated GFR & GFRAA in patients over 70 years has not been determined. Clinical correlation is essential. Serum or plasma urea nitroge n measurement (mass/volume)Ordered By: Gerri Tejeda on 06-21-2024 Urea nitrogen [Mass/Vol] 14 mg/dL 7-18 [facility] Sodium levelOrdered By: Kaela Tejeda on 06-21-2024 Sodium [Moles/Vol] 140 mmol/L 136-145 [facility] Total proteinOrdered By: Mulu Tejeda on 06-21-2024 Protein [Mass/Vol] 6.7 g/dL 6.4-8.2 [facility] White blood cell (WBC) count Ordered By: Gerri Tejeda on 06-21-2024 WBC (Bld) [#/Vol] 5.5 10*3/uL 4.4-11.0 [facility] Inital Evaluation (1) - PTon 06-14-2024 Inital Evaluation (1) - PT Normal [facility] OT General Evaluationon 05-19 OT General Evaluation Normal [facility] Hand Min 3 Viewson Hand Min 3 Views Normal [facility] Orthopedic Visit Reporton Orthopedic Visit Report Normal [facility] Pulmonary Visit Reporton Pulmonary Visit Report Normal [facility] Office Visit Reporton 2023 Office Visit Report Normal [facility] Hand Min 3 Viewson 4 Hand Min 3 Views Normal [facility] Orthopedic Visit Reporton Orthopedic Visit Report Normal [facility] Hand Min 3 Viewson 4 Hand Min 3 Views Normal [facility] Orthopedic Visit Reporton Orthopedic Visit Report Normal [facility] Office Visit Reporton 2023 Office Visit Report Normal [facility] Orthopedic Visit Reporton Orthopedic Visit Report Normal [facility] Emergency Department Summary on 04-09-2024 Emergency Department Summary Normal [facility] Hand Min 3 Viewson 4 Hand Min 3 Views Normal [facility] Neurology Visit Reporton Neurology Visit Report Normal [facility] CBC W/Diff, Automatedon Absolute Lymph 1.03 X10 3/uL Normal 0.83-4.51 [facility] Comment on above: Performed By: #### L 100.0100, L500.4050 ####[facility] [address] [place], [address] Absolute Neut 3.5 X10 3/uL Normal 2.0-7.7 [facility] Comment on above: Performed By: #### L 100.0100, L500.4050 ####[facility] [address] [place], [address] Basophils/100 WBC (Bld) 1.2 % High 0-1 [facility] Comment on above: Performed By: #### L 100.0100, L500.4050 ####[facility] [address] [place], [address] Eosinophils/100 WBC (Bld) 2.0 % Normal 0-5 [facility] Comment on above: Performed By: #### L 100.0100, L500.4050 ####[facility] [address] [place], [address] Erythrocyte distribution width (RBC) [Ratio] 12.7 % Normal 11.6-14.6 [facility] Comment on above: Performed By: #### L 100.0100, L500.4050 ####[facility] [address] [place], [address] Hematocrit (Bld) [Volume fraction] 38.1 % Normal 37-47 [facility] Comment on above: Performed By: #### L 100.0100, L500.4050 ####[facility] [address] [place], [address] Hemoglobin (Bld) [Mass/Vol] 12.1 g/dL Normal 12.0-15.0 [facility] Comment on above: Performed By: #### L 100.0100, L500.4050 ####[facility] [address] [place], [address] IG% 0.400 Normal 0.0-0.9 [facility] Comment on above: Result Comment: IG% - Immature Granulocytes (promyelocytes, myelocytes andmetamyelocytes) > 1% indicates that a LEFT SHIFT is Present. Performed By: #### L 100.0100, L500.4050 ####[facility] [address] [place], [address] Lymphocytes/100 WBC (Bld) 20.2 % Normal 19-41 [facility] Comment on above: Performed By: #### L 100.0100, L500.4050 ####[facility] [address] [place], [address] MCH (RBC) [Entitic mass] 32.7 pg High 27.0-32.0 [facility] Comment on above: Performed By: #### L 100.0100, L500.4050 ####[facility] [address] [place], [address] MCHC (RBC) [Mass/Vol] 31.8 g/dL Low 32-36 [facility] Comment on above: Performed By: #### L 100.0100, L500.4050 ####[facility] [address] [place], [address] MCV (RBC) [Entitic vol] 103.0 fL High 81-99 [facility] Comment on above: Performed By: #### L 100.0100, L500.4050 ####[facility] [address] [place], [address] Monocytes/100 WBC (Bld) 7.8 % Normal 0-10 [facility] Comment on above: Performed By: #### L 100.0100, L500.4050 ####[facility] [address] [place], [address] Neutrophils/100 WBC (Bld) 68.4 % Normal 47-70 [facility] Comment on above: Performed By: #### L 100.0100, L500.4050 ####[facility] [address] [place], [address] Nucleated RBC (Bld) [#/Vol] 0 10*3/uL Normal 0-5 [facility] Comment on above: Performed By: #### L 100.0100, L500.4050 ####[facility] [address] [place], [address] Platelet mean volume (Bld) [Entitic vol] 11.0 fL Normal 6.2-12.0 [facility] Comment on above: Performed By: #### L 100.0100, L500.4050 ####[facility] [address] [place], [address] Platelets (Bld) [#/Vol] 264 10*3/uL Normal 150-450 [facility] Comment on above: Performed By: #### L 100.0100, L500.4050 ####[facility] [address] [place], [address] RBC (Bld) [#/Vol] 3.70 10*6/uL Low 4.2-5.4 [facility] Comment on above: Performed By: #### L 100.0100, L500.4050 ####[facility] [address] [place], [address] RDW SD 48.2 fl High 35.1-43.9 [facility] Comment on above: Performed By: #### L 100.0100, L500.4050 ####[facility] [address] [place], [id number] WBC (Bld) [#/Vol] 5.1 10*3/uL Normal 4.4-11.0 [facility] Comment on above: Performed By: #### L 100.0100, L500.4050 ####[facility] [address] [place], [id number] Comprehensive Metabolic Prof ilon 03-27-2024 Albumin [Mass/Vol] 3.3 g/dL Normal 3.2-5.0 [facility] Comment on above: Performed By: #### L 100.0100, L500.4050 ####[facility] [address] [place], [address] Albumin/Globulin [Mass ratio] 1.1 {ratio} Normal 0.9-2.4 [facility] Comment on above: Performed By: #### L 100.0100, L500.4050 ####[facility] [address] [place], [address] ALK P 43 U/L Low 45-117 [facility] Comment on above: Performed By: #### L 100.0100, L500.4050 ####[facility] [address] [place], [id number] ALT [Catalytic activity/Vol] 19 U/L Normal 13-56 [facility] Comment on above: Performed By: #### L 100.0100, L500.4050 ####[facility] [address] [place], [address] AST [Catalytic activity/Vol] 22 U/L Normal 15-37 [facility] Comment on above: Performed By: #### L 100.0100, L500.4050 ####[facility] [address] [place], [address] Bilirubin [Mass/Vol] 0.40 mg/dL Normal 0.20-1.00 [facility] Comment on above: Result Comment: For patients on eltrombopag therapy, use of Dimension [place] TBIL is not recommended. Performed By: #### L 100.0100, L500.4050 ####[facility] [address] [place], [address] BUN/CRE 12.7 RATIO Normal 10-20 [facility] Comment on above: Performed By: #### L 100.0100, L500.4050 ####[facility] [address] [place], [address] CA,Total 9.4 mg/dL Normal 8.5-10.1 [facility] Comment on above: Performed By: #### L 100.0100, L500.4050 ####[facility] [address] [place], [address] Chloride [Moles/Vol] 106 mmol/L Normal 98-107 [facility] Comment on above: Performed By: #### L 100.0100, L500.4050 ####[facility] [address] [place], [address] CO2 [Moles/Vol] 29.0 mmol/L Normal 21.0-32.0 [facility] Comment on above: Performed By: #### L 100.0100, L500.4050 ####[facility] [address] [place], [address] Creatinine [Mass/Vol] 1.02 mg/dL Normal 0.55-1.02 [facility] Comment on above: Result Comment: The validity of the calculated GFR GFRAA in patients over70 years has not been determined. Clinical correlation isessential. Performed By: #### L 100.0100, L500.4050 ####[facility] [address] [place], [address] EST GFR - AA 68 mL/min Normal >60 [facility] Comment on above: Result Comment: Afri can Spanish GFR Calc Performed By: #### L 100.0100, L500.4050 ####[facility] [address] [place], [address] GAP 5 Normal 5-15 [facility] Comment on above: Performed By: #### L 100.0100, L500.4050 ####[facility] [address] [place], [address] GFR/1.73 sq M.predicted among non-blacks MDRD (S/P/Bld) [Vol rate/Area] 56 mL/min/{1.73_m2} Low >60 [facility] Comment on above: Result Comment: Non- GFR Calc Performed By: #### L 100.0100, L500.4050 ####[facility] [address] [place], [address] Globulin (S) [Mass/Vol] 3.1 g/dL Normal 2.2-4.2 [facility] Comment on above: Performed By: #### L 100.0100, L500.4050 ####[facility] [address] [place], [address] Glucose [Mass/Vol] 126 mg/dL High 74-106 [facility] Comment on above: Result Comment: Fast ing Glucose result greater than or equal to 126 mg/dLsuggests DIABETES MELLITUS per A.D.A. criteria. Performed By: #### L 100.0100, L500.4050 ####[facility] [address] [place], [address] Potassium [Moles/Vol] 3.8 mmol/L Normal 3.5-5.1 [facility] Comment on above: Performed By: #### L 100.0100, L500.4050 ####[facility] [address] [place], [address] Sodium [Moles/Vol] 140 mmol/L Normal 136-145 [facility] Comment on above: Performed By: #### L 100.0100, L500.4050 ####[facility] [id number] [place], [address] T PROT 6.4 g/dL Normal 6.4-8.2 [facility] Comment on above: Performed By: #### L 100.0100, L500.4050 ####[facility] [id number] [place], [address] Urea nitrogen [Mass/Vol] 13 mg/dL Normal 7-18 [facility] Comment on above: Performed By: #### L 100.0100, L500.4050 ####[facility] [id number] [place], [address] Office Visit Reporton 2023 Office Visit Report Normal [facility] Office Visit Reporton 2023 Office Visit Report Normal [facility] Absolute lymphocyte countOrd ered By: Gerri Tejeda on 10-08-2023 Lymphocytes Auto (Unsp spec) [#/Vol] 2.23 10*3/uL 0.83-4.51 [facility] Automated lymphocyte count a s percentage of total leukocytesOrdered By: Gerri Tejeda on 10-08-2023 Lymphocytes/100 WBC Auto (Unsp spec) 30.5 % 19-41 [facility] Basophil percentageOrdered B y: Gerri Tejeda on 10-08-2023 Basophils/100 WBC (Bld) 1.1 % 0-1 [facility] Bilirubin [Mass/Vol] 0.60 mg/dL 0.20-1.00 [facility] Comment on above: For patients on eltr ombopag therapy, use of [employer]ension [place] TBIL is not recommended. Chloride [Moles/Vol] 105 mmol/L 98-107 [facility] Eosinophils/100 WBC (Bld) 2.5 % 0-5 [facility] Glucose [Mass/Vol] 87 mg/dL 74-106 [facility] Hemoglobin (Bld) [Mass/Vol] 12.3 g/dL 12.0-15.0 [facility] Monocytes/100 WBC (Bld) 9.3 % 0-10 [facility] Neutrophils (Bld) [#/Vol] 4.1 10*3/uL 2.0-7.7 [facility] Neutrophils/100 WBC (Bld) 55.8 % 47-70 [facility] Potassium [Moles/Vol] 3.9 mmol/L 3.5-5.1 [facility] Protein [Mass/Vol] 7.0 g/dL 6.4-8.2 [facility] Sodium [Moles/Vol] 140 mmol/L 136-145 [facility] WBC (Bld) [#/Vol] 7.3 10*3/uL 4.4-11.0 [facility] Determination of erythrocyte mean corpuscular volume (MCV)Ordered By: Gerri Tejeda on 10-08-2023 MCV (RBC) [Entitic vol] 101.9 fL 81-99 [facility] Erythrocyte distribution wid th ratioOrdered By: Gerri Tejeda on 10-08-2023 Erythrocyte distribution width (RBC) [Ratio] 12.9 % 11.6-14.6 [facility] Erythrocyte distribution wid th standard deviationOrdered By: Gerri Tejeda on 10-08-2023 Erythrocyte distribution width (RBC) [Entitic vol] 47.7 fL 35.1-43.9 [facility] Hematocrit Auto (Bld) [Volum e fraction]Ordered By: Gerri Tejeda on 10-08-2023 Hematocrit (Bld) [Volume fraction] 38.2 % 37-47 [facility] Immature granulocytes/100 WB C Auto (Bld)Ordered By: Gerri Tejeda on 10-08-2023 Immature granulocytes/100 WBC (Bld) 0.800 % 0.0-0.9 [facility] Comment on above: IG% - Immature Granu locytes (promyelocytes, myelocytes and metamyelocytes) > 1% indicates that a LEFT SHIFT is Present. Laboratory - Chemistry and C hemistry - challengeOrdered By: Gerri Tejeda on 10-08-2023 Albumin/Globulin [Mass ratio] 0.9 {ratio} 0.9-2.4 [facility] ALP [Catalytic activity/Vol] 63 U/L 45-117 [facility] ALT [Catalytic activity/Vol] 23 U/L 13-56 [facility] CO2 [Moles/Vol] 32.0 mmol/L 21.0-32.0 [facility] Globulin (S) [Mass/Vol] 3.7 g/dL 2.2-4.2 [facility] Urea nitrogen/Creatinine [Mass ratio] 13.3 mg/mg 10-20 [facility] Laboratory - Hematology and Cell countsOrdered By: Gerri Tejeda on 10-08-2023 MCH (RBC) [Entitic mass] 32.8 pg 27.0-32.0 [facility] MCHC (RBC) [Mass/Vol] 32.2 g/dL 32-36 [facility] Nucleated RBC/100 WBC (Bld) [Ratio] 0 % 0-5 [facility] Platelet mean volume (Bld) [Entitic vol] 10.7 fL 6.2-12.0 [facility] Platelets (Bld) [#/Vol] 388 10*3/uL 150-450 [facility] No Panel InformationOrdered By: Gerri Tejeda on 10-08-2023 Estimated GFR (MDRD) Amer 61 mL/min >60 [facility] Comment on above: GFR Calc Estimated GFR (MDRD) Non-Af Amer 50 mL/min >60 [facility] Comment on above: Non- GFR Calc RBC Auto (Bld) [#/Vol]Ordere d By: Gerri Tejeda on 10-08-2023 RBC (Bld) [#/Vol] 3.75 10*6/uL 4.2-5.4 [facility] Serum or plasma calcium leatha urement (mass/volume)Ordered By: Gerri Tejeda on 10-08-2023 Calcium [Mass/Vol] 9.4 mg/dL 8.5-10.1 [facility] Serum or plasma creatinine m easurement (mass/volume)Ordered By: Gerri Tejeda on 10-08-2023 Creatinine [Mass/Vol] 1.13 mg/dL 0.55-1.02 [facility] Comment on above: The validity of the calculated GFR & GFRAA in patients over 70 years has not been determined. Clinical correlation is essential. Serum or plasma urea nitroge n measurement (mass/volume)Ordered By: Gerri Tejeda on 10-08-2023 Urea nitrogen [Mass/Vol] 15 mg/dL 7-18 [facility] Thin prep Papanicolaou smear with manual screeningOrdered By: Gerri Tejeda on 10-08-2023 Thin prep Papanicolaou smear with manual screening 3.3 g/dL 3.2-5.0 [facility] Thin prep Papanicolaou smear with manual screening 27 U/L 15-37 [facility] Thin prep Papanicolaou smear with manual screening 3 5-15 [facility] Absolute lymphocyte countOrd ered By: Gerri Tejeda on 07-21-2023 Lymphocytes Auto (Unsp spec) [#/Vol] 0.90 10*3/uL 0.83-4.51 [facility] Basophil percentageOrdered B y: Gerri Tejeda on 07-21-2023 Basophils/100 WBC (Bld) 1.4 % 0-1 [facility] Bilirubin [Mass/Vol] 0.50 mg/dL 0.20-1.00 [facility] Comment on above: For patients on eltr ombopag therapy, use of [employer] [place] TBIL is not recommended. Chloride [Moles/Vol] 105 mmol/L 98-107 [facility] Eosinophils/100 WBC (Bld) 3.0 % 0-5 [facility] Glucose [Mass/Vol] 103 mg/dL 74-106 [facility] Comment on above: Fasting Glucose resu lt from 100 to 125 mg/dL suggests IMPAIRED HOMEOSTASIS per A.D.A. criteria. Neutrophils (Bld) [#/Vol] 2.3 10*3/uL 2.0-7.7 [facility] Neutrophils/100 WBC (Bld) 62.0 % 47-70 [facility] Potassium [Moles/Vol] 3.6 mmol/L 3.5-5.1 [facility] Protein [Mass/Vol] 6.7 g/dL 6.4-8.2 [facility] Sodium [Moles/Vol] 138 mmol/L 136-145 [facility] WBC (Bld) [#/Vol] 3.6 10*3/uL 4.4-11.0 [facility] Blood erythrocytes count (nu mber/volume)Ordered By: Gerri Tejeda on 07-21-2023 RBC (Bld) [#/Vol] 3.54 10*6/uL 4.2-5.4 [facility] Blood hemoglobin measurement (mass/volume)Ordered By: Gerri Tejeda on 07-21-2023 Hemoglobin (Bld) [Mass/Vol] 11.5 g/dL 12.0-15.0 [facility] Blood lymphocytes/100 leukoc ytesOrdered By: Gerri Tejeda on 07-21-2023 Lymphocytes/100 WBC (Bld) 24.8 % 19-41 [facility] Blood monocytes/100 leukocyt esOrdered By: Gerri Tejeda on 07-21-2023 Monocytes/100 WBC (Bld) 8.5 % 0-10 [facility] Blood platelet mean volumeOr dered By: Gerri Tejeda on 07-21-2023 Platelet mean volume (Bld) [Entitic vol] 10.7 fL 6.2-12.0 [facility] Determination of erythrocyte mean corpuscular volume (MCV)Ordered By: Gerri Tejeda on 07-21-2023 MCV (RBC) [Entitic vol] 101.4 fL 81-99 [facility] Hematocrit Auto (Bld) [Volum e fraction]Ordered By: Gerri Tejeda on 07-21-2023 Hematocrit (Bld) [Volume fraction] 35.9 % 37-47 [facility] Laboratory - Chemistry and C hemistry - challengeOrdered By: Gerri Tejeda on 07-21-2023 ALP [Catalytic activity/Vol] 58 U/L 45-117 [facility] ALT [Catalytic activity/Vol] 29 U/L 13-56 [facility] CO2 [Moles/Vol] 29.0 mmol/L 21.0-32.0 [facility] Globulin (S) [Mass/Vol] 3.5 g/dL 2.2-4.2 [facility] Urea nitrogen/Creatinine [Mass ratio] 14.4 mg/mg 10-20 [facility] Laboratory - Hematology and Cell countsOrdered By: Gerri Tejeda on 07-21-2023 Erythrocyte distribution width (RBC) [Entitic vol] 48.3 fL 35.1-43.9 [facility] Erythrocyte distribution width (RBC) [Ratio] 13.2 % 11.6-14.6 [facility] Immature granulocytes/100 WBC (Bld) 0.300 % 0.0-0.9 [facility] Comment on above: IG% - Immature Granu locytes (promyelocytes, myelocytes and metamyelocytes) > 1% indicates that a LEFT SHIFT is Present. MCH (RBC) [Entitic mass] 32.5 pg 27.0-32.0 [facility] Nucleated RBC/100 WBC (Bld) [Ratio] 0 % 0-5 [facility] MCHC Auto (RBC) [Mass/Vol]Or dered By: Gerri Tejeda on 07-21-2023 MCHC (RBC) [Mass/Vol] 32.0 g/dL 32-36 [facility] No Panel InformationOrdered By: Gerri Tejeda on 07-21-2023 Estimated GFR (MDRD) Amer 67 mL/min >60 [facility] Comment on above: GFR Calc Estimated GFR (MDRD) Non-Af Amer 55 mL/min >60 [facility] Comment on above: Non- GFR Calc Platelets bldOrdered By: Mulu Tejeda on 07-21-2023 Platelets (Bld) [#/Vol] 279 10*3/uL 150-450 [facility] Serum or plasma albumin leatha urement (mass/volume)Ordered By: Gerri Tejeda on 07-21-2023 Albumin [Mass/Vol] 3.2 g/dL 3.2-5.0 [facility] Serum or plasma albumin/glob ulin mass ratioOrdered By: Gerri Tejeda on 07-21-2023 Albumin/Globulin [Mass ratio] 0.9 {ratio} 0.9-2.4 [facility] Serum or plasma calcium leatha urement (mass/volume)Ordered By: Gerri Tejeda on 07-21-2023 Calcium [Mass/Vol] 9.4 mg/dL 8.5-10.1 [facility] Serum or plasma creatinine m easurement (mass/volume)Ordered By: Gerri Tejeda on 07-21-2023 Creatinine [Mass/Vol] 1.04 mg/dL 0.55-1.02 [facility] Comment on above: The validity of the calculated GFR & GFRAA in patients over 70 years has not been determined. Clinical correlation is essential. Serum or plasma urea nitroge n measurement (mass/volume)Ordered By: Gerri Tejeda on 07-21-2023 Urea nitrogen [Mass/Vol] 15 mg/dL 7-18 [facility] Thin prep Papanicolaou smear with manual screeningOrdered By: Gerri Tejeda on 07-21-2023 Thin prep Papanicolaou smear with manual screening 26 U/L 15-37 [facility] Thin prep Papanicolaou smear with manual screening 4 5-15 [facility] No Panel Informationon 06-28 Influenza Types A,B Rapid (Clinic) Negative [facility] POC SARS CoV-2 Antigen Positive [facility] Absolute lymphocyte countOrd ered By: Gerri Tejeda on 04-22-2023 Lymphocytes Auto (Unsp spec) [#/Vol] 1.38 10*3/uL 0.83-4.51 [facility] Basophil percentageOrdered B y: Gerri Tejeda on 04-22-2023 Basophils/100 WBC (Bld) 0.7 % 0-1 [facility] Bilirubin [Mass/Vol] 0.40 mg/dL 0.20-1.00 [facility] Comment on above: For patients on eltr ombopag therapy, use of [employer] [place] TBIL is not recommended. Chloride [Moles/Vol] 104 mmol/L 98-107 [facility] Eosinophils/100 WBC (Bld) 2.0 % 0-5 [facility] Glucose [Mass/Vol] 102 mg/dL 74-106 [facility] Comment on above: Fasting Glucose resu lt from 100 to 125 mg/dL suggests IMPAIRED HOMEOSTASIS per A.D.A. criteria. Neutrophils (Bld) [#/Vol] 3.4 10*3/uL 2.0-7.7 [facility] Neutrophils/100 WBC (Bld) 62.5 % 47-70 [facility] Potassium [Moles/Vol] 3.6 mmol/L 3.5-5.1 [facility] Protein [Mass/Vol] 6.6 g/dL 6.4-8.2 [facility] Sodium [Moles/Vol] 139 mmol/L 136-145 [facility] WBC (Bld) [#/Vol] 5.4 10*3/uL 4.4-11.0 [facility] Blood erythrocytes count (nu mber/volume)Ordered By: Gerri Tejeda on 04-22-2023 RBC (Bld) [#/Vol] 3.62 10*6/uL 4.2-5.4 [facility] Blood hemoglobin measurement (mass/volume)Ordered By: Gerri Tejeda on 04-22-2023 Hemoglobin (Bld) [Mass/Vol] 11.5 g/dL 12.0-15.0 [facility] Blood lymphocytes/100 leukoc ytesOrdered By: Gerri Tejeda on 04-22-2023 Lymphocytes/100 WBC (Bld) 25.7 % 19-41 [facility] Blood monocytes/100 leukocyt esOrdered By: Gerri Tejeda on 04-22-2023 Monocytes/100 WBC (Bld) 8.9 % 0-10 [facility] Blood platelet mean volumeOr dered By: Gerri Tejeda on 04-22-2023 Platelet mean volume (Bld) [Entitic vol] 10.5 fL 6.2-12.0 [facility] Determination of erythrocyte mean corpuscular volume (MCV)Ordered By: Gerri Tejeda on 04-22-2023 MCV (RBC) [Entitic vol] 102.5 fL 81-99 [facility] Hematocrit Auto (Bld) [Volum e fraction]Ordered By: Gerri Tejeda on 04-22-2023 Hematocrit (Bld) [Volume fraction] 37.1 % 37-47 [facility] Laboratory - Chemistry and C hemistry - challengeOrdered By: Gerri Tejeda on 04-22-2023 ALP [Catalytic activity/Vol] 57 U/L 45-117 [facility] ALT [Catalytic activity/Vol] 21 U/L 13-56 [facility] CO2 [Moles/Vol] 30.0 mmol/L 21.0-32.0 [facility] Globulin (S) [Mass/Vol] 3.3 g/dL 2.2-4.2 [facility] Urea nitrogen/Creatinine [Mass ratio] 12.3 mg/mg 10-20 [facility] Laboratory - Hematology and Cell countsOrdered By: Gerri Tejeda on 04-22-2023 Erythrocyte distribution width (RBC) [Entitic vol] 48.8 fL 35.1-43.9 [facility] Erythrocyte distribution width (RBC) [Ratio] 13.1 % 11.6-14.6 [facility] Immature granulocytes/100 WBC (Bld) 0.200 % 0.0-0.9 [facility] Comment on above: IG% - Immature Granu locytes (promyelocytes, myelocytes and metamyelocytes) > 1% indicates that a LEFT SHIFT is Present. MCH (RBC) [Entitic mass] 31.8 pg 27.0-32.0 [facility] Nucleated RBC/100 WBC (Bld) [Ratio] 0 % 0-5 [facility] MCHC Auto (RBC) [Mass/Vol]Or dered By: Gerripriscilla Tejeda on 04-22-2023 MCHC (RBC) [Mass/Vol] 31.0 g/dL 32-36 [facility] No Panel InformationOrdered By: Gerri Tejeda on 04-22-2023 Estimated GFR (MDRD) Amer 65 mL/min >60 [facility] Comment on above: GFR Calc Estimated GFR (MDRD) Non-Af Amer 54 mL/min >60 [facility] Comment on above: Non- GFR Calc Platelets bldOrdered By: Mulu Tejeda on 04-22-2023 Platelets (Bld) [#/Vol] 290 10*3/uL 150-450 [facility] Serum or plasma albumin leatha urement (mass/volume)Ordered By: Gerri Tejeda on 04-22-2023 Albumin [Mass/Vol] 3.3 g/dL 3.2-5.0 [facility] Serum or plasma albumin/glob ulin mass ratioOrdered By: Gerri Tejeda on 04-22-2023 Albumin/Globulin [Mass ratio] 1.0 {ratio} 0.9-2.4 [facility] Serum or plasma calcium leatha urement (mass/volume)Ordered By: Gerri Tejeda on 04-22-2023 Calcium [Mass/Vol] 9.2 mg/dL 8.5-10.1 [facility] Serum or plasma creatinine m easurement (mass/volume)Ordered By: Gerri Tejeda on 04-22-2023 Creatinine [Mass/Vol] 1.06 mg/dL 0.55-1.02 [facility] Comment on above: The validity of the calculated GFR & GFRAA in patients over 70 years has not been determined. Clinical correlation is essential. Serum or plasma urea nitroge n measurement (mass/volume)Ordered By: eGrri Tejeda on 04-22-2023 Urea nitrogen [Mass/Vol] 13 mg/dL 7-18 [facility] Thin prep Papanicolaou smear with manual screeningOrdered By: Gerri Tejeda on 04-22-2023 Thin prep Papanicolaou smear with manual screening 18 U/L 15-37 [facility] Thin prep Papanicolaou smear with manual screening 5 5-15 [facility] Basophil percentageOrdered B y: Mariluz Cisneros on 03-04-2023 Chloride [Moles/Vol] 107 mmol/L 98-107 [facility] Glucose [Mass/Vol] 102 mg/dL 74-106 [facility] Comment on above: Fasting Glucose resu lt from 100 to 125 mg/dL suggests IMPAIRED HOMEOSTASIS per A.D.A. criteria. Potassium [Moles/Vol] 4.1 mmol/L 3.5-5.1 [facility] Sodium [Moles/Vol] 141 mmol/L 136-145 [facility] Blood hemoglobin measurement (mass/volume)Ordered By: Mariluz Cisneros on 03-04-2023 Hemoglobin (Bld) [Mass/Vol] 9.5 g/dL 12.0-15.0 [facility] Hematocrit Auto (Bld) [Volum e fraction]Ordered By: Mariluz Cisneros on 03-04-2023 Hematocrit (Bld) [Volume fraction] 30.0 % 37-47 [facility] Laboratory - Chemistry and C hemistry - challengeOrdered By: Mariluz Cisneros on 03-04-2023 CO2 [Moles/Vol] 30.0 mmol/L 21.0-32.0 [facility] Urea nitrogen/Creatinine [Mass ratio] 27.4 mg/mg 10-20 [facility] No Panel InformationOrdered By: Mariluz Cisneros on 03-04-2023 Estimated Creatinine Clearance Calc 56.67 ml/min [facility] Estimated GFR (MDRD) Amer 86 mL/min >60 [facility] Comment on above: GFR Calc Estimated GFR (MDRD) Non-Af Amer 71 mL/min >60 [facility] Comment on above: Non- GFR Calc Serum or plasma calcium leatha urement (mass/volume)Ordered By: Mariluz Cisneros on 03-04-2023 Calcium [Mass/Vol] 8.9 mg/dL 8.5-10.1 [facility] Serum or plasma creatinine m easurement (mass/volume)Ordered By: Mariluz Cisneros on 03-04-2023 Creatinine [Mass/Vol] 0.84 mg/dL 0.55-1.02 [facility] Comment on above: The validity of the calculated GFR & GFRAA in patients over 70 years has not been determined. Clinical correlation is essential. Serum or plasma urea nitroge n measurement (mass/volume)Ordered By: Mariluz Cisneros on 03-04-2023 Urea nitrogen [Mass/Vol] 23 mg/dL -18 [facility] Thin prep Papanicolaou smear with manual screeningOrdered By: Mariluz Cisneros on 03-04-2023 Thin prep Papanicolaou smear with manual screening 4 5-15 [facility] Stool gastrointestinal hemog lobin detection by immunologic methodOrdered By: Mariluz Cisneros on 03-01-2023 Lower GI hemoglobin IA Ql (Stl) [facility] Lower GI hemoglobin IA Ql (Stl) [facility] Absolute lymphocyte countOrd ered By: Mariluz Josephilana on 02-25-2023 Lymphocytes Auto (Unsp spec) [#/Vol] 1.17 10*3/uL 0.83-4.51 [facility] Basophil percentageOrdered B y: Mariluz Josephilana on 02-25-2023 Basophil percentage 4.4 mg/dL 2.5-4.9 [facility] Basophils/100 WBC (Bld) 0.9 % 0-1 [facility] Bilirubin [Mass/Vol] 0.30 mg/dL 0.20-1.00 [facility] Comment on above: For patients on eltr ombopag therapy, use of [employer] [place] TBIL is not recommended. Eosinophils/100 WBC (Bld) 3.8 % 0-5 [facility] Neutrophils (Bld) [#/Vol] 4.7 10*3/uL 2.0-7.7 [facility] Neutrophils/100 WBC (Bld) 66.7 % 47-70 [facility] Protein [Mass/Vol] 5.8 g/dL 6.4-8.2 [facility] WBC (Bld) [#/Vol] 7.0 10*3/uL 4.4-11.0 [facility] Blood erythrocytes count (nu mber/volume)Ordered By: Mariluz Blayne on 02-25-2023 RBC (Bld) [#/Vol] 2.89 10*6/uL 4.2-5.4 [facility] Blood lymphocytes/100 leukoc ytesOrdered By: Mariluz Blayne on 02-25-2023 Lymphocytes/100 WBC (Bld) 16.6 % 19-41 [facility] Blood monocytes/100 leukocyt esOrdered By: Mariluz Cisneros on 02-25-2023 Monocytes/100 WBC (Bld) 11.6 % 0-10 [facility] Blood platelet mean volumeOr dered By: Mariluz Cisneros on 02-25-2023 Platelet mean volume (Bld) [Entitic vol] 10.1 fL 6.2-12.0 [facility] Determination of erythrocyte mean corpuscular volume (MCV)Ordered By: Mariluz Cisneros on 02-25-2023 MCV (RBC) [Entitic vol] 104.2 fL 81-99 [facility] Laboratory - Chemistry and C hemistry - challengeOrdered By: Mariluz Cisneros on 02-25-2023 ALP [Catalytic activity/Vol] 52 U/L 45-117 [facility] ALT [Catalytic activity/Vol] 23 U/L 13-56 [facility] Globulin (S) [Mass/Vol] 3.5 g/dL 2.2-4.2 [facility] Magnesium [Mass/Vol] 2.2 mg/dL 1.6-2.6 [facility] Laboratory - Hematology and Cell countsOrdered By: Mariluz Cisneros on 02-25-2023 Erythrocyte distribution width (RBC) [Entitic vol] 47.3 fL 35.1-43.9 [facility] Erythrocyte distribution width (RBC) [Ratio] 12.6 % 11.6-14.6 [facility] Immature granulocytes/100 WBC (Bld) 0.400 % 0.0-0.9 [facility] Comment on above: IG% - Immature Granu locytes (promyelocytes, myelocytes and metamyelocytes) > 1% indicates that a LEFT SHIFT is Present. MCH (RBC) [Entitic mass] 33.2 pg 27.0-32.0 [facility] Nucleated RBC/100 WBC (Bld) [Ratio] 0 % 0-5 [facility] MCHC Auto (RBC) [Mass/Vol]Or dered By: Mariluz Cisneros on 02-25-2023 MCHC (RBC) [Mass/Vol] 31.9 g/dL 32-36 [facility] No Panel InformationOrdered By: Mariluz Cisneros on 02-25-2023 Vitamin D 25-Hydroxy 73.1 ng/mL [facility] Comment on above: Vitamin D 25(OH) Sta tus Range Deficiency <20 ng/mL (50nmol/L) Insufficiency 20 - 30 ng/mL (50 - 75 nmol/L) Sufficiency 30 - 100 ng/mL (75 - 250 nmol/L) Toxicity >100 ng/mL (>250 nmol/L) Platelets bldOrdered By: Brii Cisneros on 02-25-2023 Platelets (Bld) [#/Vol] 277 10*3/uL 150-450 [facility] Serum or plasma albumin leatha urement (mass/volume)Ordered By: Mariluz Josephilana on 02-25-2023 Albumin [Mass/Vol] 2.3 g/dL 3.2-5.0 [facility] Serum or plasma albumin/glob ulin mass ratioOrdered By: Mariluz Blayne on 02-25-2023 Albumin/Globulin [Mass ratio] 0.7 {ratio} 0.9-2.4 [facility] Thin prep Papanicolaou smear with manual screeningOrdered By: Mariluz Blayne on 02-25-2023 Thin prep Papanicolaou smear with manual screening 27 U/L 15-37 [facility] Absolute lymphocyte countOrd ered By: Fili Faria on 02-21-2023 Lymphocytes Auto (Unsp spec) [#/Vol] 0.99 10*3/uL 0.83-4.51 [facility] Basophil percentageOrdered B y: Fili Faria on 02-21-2023 Basophils/100 WBC (Bld) 0.4 % 0-1 [facility] Bilirubin [Mass/Vol] 0.70 mg/dL 0.20-1.00 [facility] Comment on above: For patients on eltr ombopag therapy, use of [employer] [place] TBIL is not recommended. Chloride [Moles/Vol] 99 mmol/L 98-107 [facility] Eosinophils/100 WBC (Bld) 2.2 % 0-5 [facility] Glucose [Mass/Vol] 111 mg/dL 74-106 [facility] Comment on above: Fasting Glucose resu lt from 100 to 125 mg/dL suggests IMPAIRED HOMEOSTASIS per A.D.A. criteria. Neutrophils (Bld) [#/Vol] 7.2 10*3/uL 2.0-7.7 [facility] Neutrophils/100 WBC (Bld) 76.5 % 47-70 [facility] Potassium [Moles/Vol] 3.8 mmol/L 3.5-5.1 [facility] Protein [Mass/Vol] 6.5 g/dL 6.4-8.2 [facility] Sodium [Moles/Vol] 135 mmol/L 136-145 [facility] WBC (Bld) [#/Vol] 9.4 10*3/uL 4.4-11.0 [facility] Basophil percentage 0 SEEN /hpf 0-5 [facility] Bilirubin Test strip Ql (U)O rdered By: Fili Faria on 02-21-2023 Bilirubin Ql (U) Negative Negative [facility] Blood erythrocytes count (nu mber/volume)Ordered By: Fili Faria on 02-21-2023 RBC (Bld) [#/Vol] 3.30 10*6/uL 4.2-5.4 [facility] Blood hemoglobin measurement (mass/volume)Ordered By: Fili Faria on 02-21-2023 Hemoglobin (Bld) [Mass/Vol] 10.9 g/dL 12.0-15.0 [facility] Blood lymphocytes/100 leukoc ytesOrdered By: Fili Faria on 02-21-2023 Lymphocytes/100 WBC (Bld) 10.5 % 19-41 [facility] Blood monocytes/100 leukocyt esOrdered By: Fili Faria on 02-21-2023 Monocytes/100 WBC (Bld) 9.9 % 0-10 [facility] Blood platelet mean volumeOr dered By: Fili Faria on 02-21-2023 Platelet mean volume (Bld) [Entitic vol] 10.4 fL 6.2-12.0 [facility] Determination of erythrocyte mean corpuscular volume (MCV)Ordered By: Fili Faria on 02-21-2023 MCV (RBC) [Entitic vol] 102.1 fL 81-99 [facility] Erythrocyte sedimentation ra teOrdered By: Fili Faria on 02-21-2023 ESR (Bld) [Velocity] 42 mm/h 0-30 [facility] Hematocrit Auto (Bld) [Volum e fraction]Ordered By: Fili Faria on 02-21-2023 Hematocrit (Bld) [Volume fraction] 33.7 % 37-47 [facility] Ketones Test strip Ql (U)Ord ered By: Fili Faria on 02-21-2023 Ketones Ql (U) Negative Negative [facility] Laboratory - Chemistry and C hemistry - challengeOrdered By: Fili Faria on 02-21-2023 ALP [Catalytic activity/Vol] 33 U/L 45-117 [facility] ALT [Catalytic activity/Vol] 19 U/L 13-56 [facility] CO2 [Moles/Vol] 32.0 mmol/L 21.0-32.0 [facility] Globulin (S) [Mass/Vol] 3.6 g/dL 2.2-4.2 [facility] Urea nitrogen/Creatinine [Mass ratio] 14.7 mg/mg 10-20 [facility] - Hematology and Cell countsOrdered By: Fili Faria on 02-21-2023 Erythrocyte distribution width (RBC) [Entitic vol] 46.5 fL 35.1-43.9 [facility] Erythrocyte distribution width (RBC) [Ratio] 12.6 % 11.6-14.6 [facility] Immature granulocytes/100 WBC (Bld) 0.500 % 0.0-0.9 [facility] Comment on above: IG% - Immature Granu locytes (promyelocytes, myelocytes and metamyelocytes) > 1% indicates that a LEFT SHIFT is Present. MCH (RBC) [Entitic mass] 33.0 pg 27.0-32.0 [facility] Nucleated RBC/100 WBC (Bld) [Ratio] 0 % 0-5 [facility] MCHC Auto (RBC) [Mass/Vol]Or dered By: Fili Faria on 02-21-2023 MCHC (RBC) [Mass/Vol] 32.3 g/dL 32-36 [facility] Mucus LM Ql (Urine sed)Order ed By: Fili Faria on 02-21-2023 Mucus Ql (Urine sed) 0 SEEN /hpf [facility] Nitrite Test strip Ql (U)Ord ered By: Fili Faria on 02-21-2023 Nitrite Ql (U) Negative Negative [facility] No Panel InformationOrdered By: Fili Faria on 02-21-2023 Estimated Creatinine Clearance Calc 47.60 ml/min [facility] Estimated GFR (MDRD) Amer 98 mL/min >60 [facility] Comment on above: GFR Calc Estimated GFR (MDRD) Non-Af Amer 81 mL/min >60 [facility] Comment on above: Non- GFR Calc Platelets bldOrdered By: Kendra Faria on 02-21-2023 Platelets (Bld) [#/Vol] 291 10*3/uL 150-450 [facility] Protein Test strip Ql (U)Ord ered By: Fili Faria on 02-21-2023 Protein Ql (U) Negative Negative [facility] Serum or plasma C reactive p rotein measurement (mass/volume)Ordered By: Fili Faria on 02-21-2023 CRP [Mass/Vol] 168.00 mg/L 0.0-3.0 [facility] Comment on above: C-Reactive Protein ( CRP) provides useful information for thediagnosis, therapy and monitoring of inflammatory processesand associated diseases. For the evaluation of Relative Riskfor Cardiovascular Disease, a High Sensitivity CRP (HSCRP)should be ordered. Serum or plasma albumin leatha urement (mass/volume)Ordered By: Fili Faria on 02-21-2023 Albumin [Mass/Vol] 2.9 g/dL 3.2-5.0 [facility] Serum or plasma albumin/glob ulin mass ratioOrdered By: Fili Faria on 02-21-2023 Albumin/Globulin [Mass ratio] 0.8 {ratio} 0.9-2.4 [facility] Serum or plasma calcium leatha urement (mass/volume)Ordered By: Fili Faria on 02-21-2023 Calcium [Mass/Vol] 9.3 mg/dL 8.5-10.1 [facility] Serum or plasma creatinine m easurement (mass/volume)Ordered By: Fili Faria on 02-21-2023 Creatinine [Mass/Vol] 0.75 mg/dL 0.55-1.02 [facility] Comment on above: The validity of the calculated GFR & GFRAA in patients over 70 years has not been determined. Clinical correlation is essential. Serum or plasma urea nitroge n measurement (mass/volume)Ordered By: Fili Faria on 02-21-2023 Urea nitrogen [Mass/Vol] 11 mg/dL 7-18 [facility] Squamous epithelial cells de tection in urine sediment by light microscopyOrdered By: Fili Faria on 02-21-2023 Epithelial cells.squamous LM Ql (Urine sed) 0-5 SEEN /hpf 5-10 [facility] Thin prep Papanicolaou smear with manual screeningOrdered By: Fili Faria on 02-21-2023 Thin prep Papanicolaou smear with manual screening 31 U/L 15-37 [facility] Thin prep Papanicolaou smear with manual screening 4 5-15 [facility] Urine blood detectionOrdered By: Fili Faria on 02-21-2023 RBC Ql (U) 25 /ul Negative [facility] RBC Ql (U) 0-5 SEEN /hpf 0-5 [facility] Urine clarityOrdered By: Kendra Faria on 02-21-2023 Clarity (U) Clear Clear [facility] Urine color determinationOrd ered By: Fili Faria on 02-21-2023 Color (U) Yellow Yellow [facility] Urine glucose detectionOrder ed By: Fili Faria on 02-21-2023 Glucose Ql (U) Normal mg/dl Normal [facility] Urine leukocyte esterase det ection by dipstickOrdered By: Fili Faria on 02-21-2023 Leukocyte esterase Test strip Ql (U) Negative Negative [facility] Urine pHOrdered By: Fili nolasco on 02-21-2023 pH (U) 7.0 [pH] 5.0 - 8.0 [facility] Urine sediment bacteria coun t by microscopy (number/high power field)Ordered By: Fili Faria on 02-21-2023 Bacteria LM.HPF (Urine sed) [#/Area] 2 /[HPF] None Seen [facility] Urine specific gravity measu rementOrdered By: Fili Faria on 02-21-2023 Specific gravity (U) [Rel density] 1.010 1.002-1.03 0 [facility] Urobilinogen Auto test strip Ql (U)Ordered By: Fili Faria on 02-21-2023 Urobilinogen Ql (U) Normal mg/dl Normal [facility] Absolute lymphocyte countOrd ered By: Gerri Tejeda on 01-21-2023 Lymphocytes Auto (Unsp spec) [#/Vol] 1.16 10*3/uL 0.83-4.51 [facility] Basophil percentageOrdered B y: Gerri Tejeda on 01-21-2023 Basophils/100 WBC (Bld) 1.0 % 0-1 [facility] Bilirubin [Mass/Vol] 0.50 mg/dL 0.20-1.00 [facility] Comment on above: For patients on eltr ombopag therapy, use of Dimension [place] TBIL is not recommended. Chloride [Moles/Vol] 103 mmol/L 98-107 [facility] Eosinophils/100 WBC (Bld) 2.2 % 0-5 [facility] Glucose [Mass/Vol] 105 mg/dL 74-106 [facility] Comment on above: Fasting Glucose resu lt from 100 to 125 mg/dL suggests IMPAIRED HOMEOSTASIS per A.D.A. criteria. Neutrophils (Bld) [#/Vol] 3.2 10*3/uL 2.0-7.7 [facility] Neutrophils/100 WBC (Bld) 64.3 % 47-70 [facility] Potassium [Moles/Vol] 3.4 mmol/L 3.5-5.1 [facility] Protein [Mass/Vol] 6.7 g/dL 6.4-8.2 [facility] Sodium [Moles/Vol] 138 mmol/L 136-145 [facility] WBC (Bld) [#/Vol] 5.0 10*3/uL 4.4-11.0 [facility] Blood erythrocytes count (nu mber/volume)Ordered By: Gerri Tejeda on 01-21-2023 RBC (Bld) [#/Vol] 3.60 10*6/uL 4.2-5.4 [facility] Blood hemoglobin measurement (mass/volume)Ordered By: Gerri Tejeda on 01-21-2023 Hemoglobin (Bld) [Mass/Vol] 12.1 g/dL 12.0-15.0 [facility] Blood lymphocytes/100 leukoc ytesOrdered By: Gerri Tejeda on 01-21-2023 Lymphocytes/100 WBC (Bld) 23.4 % 19-41 [facility] Blood monocytes/100 leukocyt esOrdered By: Gerri Tejeda on 01-21-2023 Monocytes/100 WBC (Bld) 8.9 % 0-10 [facility] Blood platelet mean volumeOr dered By: Gerri Tejeda on 01-21-2023 Platelet mean volume (Bld) [Entitic vol] 10.1 fL 6.2-12.0 [facility] Determination of erythrocyte mean corpuscular volume (MCV)Ordered By: Gerri Tejeda on 01-21-2023 MCV (RBC) [Entitic vol] 100.8 fL 81-99 [facility] Hematocrit Auto (Bld) [Volum e fraction]Ordered By: Gerri Tejeda on 01-21-2023 Hematocrit (Bld) [Volume fraction] 36.3 % 37-47 [facility] Laboratory - Chemistry and C hemistry - challengeOrdered By: Gerri Tejeda on 01-21-2023 ALP [Catalytic activity/Vol] 54 U/L 45-117 [facility] ALT [Catalytic activity/Vol] 29 U/L 13-56 [facility] CO2 [Moles/Vol] 30.0 mmol/L 21.0-32.0 [facility] Globulin (S) [Mass/Vol] 3.3 g/dL 2.2-4.2 [facility] Urea nitrogen/Creatinine [Mass ratio] 15.6 mg/mg 10-20 [facility] - Hematology and Cell countsOrdered By: Gerri Tejeda on 01-21-2023 Erythrocyte distribution width (RBC) [Entitic vol] 45.8 fL 35.1-43.9 [facility] Erythrocyte distribution width (RBC) [Ratio] 12.5 % 11.6-14.6 [facility] Immature granulocytes/100 WBC (Bld) 0.200 % 0.0-0.9 [facility] Comment on above: IG% - Immature Granu locytes (promyelocytes, myelocytes and metamyelocytes) > 1% indicates that a LEFT SHIFT is Present. MCH (RBC) [Entitic mass] 33.6 pg 27.0-32.0 [facility] Nucleated RBC/100 WBC (Bld) [Ratio] 0 % 0-5 [facility] MCHC Auto (RBC) [Mass/Vol]Or dered By: Gerri Tejeda on 01-21-2023 MCHC (RBC) [Mass/Vol] 33.3 g/dL 32-36 [facility] No Panel InformationOrdered By: Gerri Tejeda on 01-21-2023 Estimated GFR (MDRD) Amer 73 mL/min >60 [facility] Comment on above: GFR Calc Estimated GFR (MDRD) Non-Af Amer 60 mL/min >60 [facility] Comment on above: Non- GFR Calc Platelets bldOrdered By: Mulu Tejeda on 01-21-2023 Platelets (Bld) [#/Vol] 288 10*3/uL 150-450 [facility] Serum or plasma albumin leatha urement (mass/volume)Ordered By: Gerri Tejeda on 01-21-2023 Albumin [Mass/Vol] 3.4 g/dL 3.2-5.0 [facility] Serum or plasma albumin/glob ulin mass ratioOrdered By: Gerri Tejeda on 01-21-2023 Albumin/Globulin [Mass ratio] 1.0 {ratio} 0.9-2.4 [facility] Serum or plasma calcium leatha urement (mass/volume)Ordered By: Gerri Tejeda on 01-21-2023 Calcium [Mass/Vol] 9.0 mg/dL 8.5-10.1 [facility] Serum or plasma creatinine m easurement (mass/volume)Ordered By: Gerri Tejeda on 01-21-2023 Creatinine [Mass/Vol] 0.96 mg/dL 0.55-1.02 [facility] Comment on above: The validity of the calculated GFR & GFRAA in patients over 70 years has not been determined. Clinical correlation is essential. Serum or plasma urea nitroge n measurement (mass/volume)Ordered By: Gerri Tejeda on 01-21-2023 Urea nitrogen [Mass/Vol] 15 mg/dL 7-18 [facility] Thin prep Papanicolaou smear with manual screeningOrdered By: Gerri Tejeda on 01-21-2023 Thin prep Papanicolaou smear with manual screening 26 U/L 15-37 [facility] Thin prep Papanicolaou smear with manual screening 5 5-15 [facility] Alternaria alternata IgE ser umOrdered By: Audelia Mace on 01-07-2023 A. alternata IgE Qn (S) <0.10 kU/L Class 0 [facility] No Panel InformationOrdered By: Audelia Mace on 01-07-2023 Cat Hair Allergen <0.10 kU/L Class 0 [facility] Common Ragweed (Short) Allergen <0.10 kU/L Class 0 [facility] Immunoglobulin E 34 IU/mL 6-495 [facility] Maple ([place]) Allergen IgE Ab <0.10 kU/L Class 0 [facility] Mouse Urine Allergen IgE Antibody <0.10 kU/L Class 0 [facility] Comment on above: Performed at: [address] [id number] Director: Ava Jason MD, Phone: [phone] [facility] Comment Comment . [facility] Comment on above: Levels of Specific I gE Class Description of Class ----- < 0.10 0 Negative 0.10 - 0.31 0/I Equivocal/Low 0.32 - 0.55 I Low 0.56 - 1.40 II Moderate 1.41 - 3.90 III High 3.91 - 19.00 IV Very High 19.01 - 100.00 V Very High >100.00 Very High [place] Tree Allergen <0.10 kU/L Class 0 [facility] Rough pigweed specific IgE a ntibody assayOrdered By: Audelia Mace on 01-07-2023 Rough Pigweed IgE Qn (S) <0.10 kU/L Class 0 [facility] Serum Spanish sycamore IgE antibody assay (units/volume)Ordered By: Audelia Mace on 01-07-2023 Spanish [place] IgE Qn (S) <0.10 kU/L Class 0 [facility] Serum Aspergillus fumigatus IgE antibody assay (units/volume)Ordered By: Audelia Mace on 01-07-2023 A. fumigatus IgE Qn (S) <0.10 kU/L Class 0 [facility] Serum Bermuda grass IgE anti body assay (units/volume)Ordered By: Audelia Mace on 01-07-2023 Bermuda grass IgE Qn (S) <0.10 kU/L Class 0 [facility] Serum Cladosporium herbarum IgE antibody assay (units/volume)Ordered By: Audelia Mace on 01-07-2023 C. herbarum IgE Qn (S) <0.10 kU/L Class 0 [facility] Serum Dermatophagoides farin ae specific IgE antibody assay (units/volume)Ordered By: Audelia Mace on 01-07-2023 Spanish house dust mite IgE Qn (S) <0.10 kU/L Class 0 [facility] Serum house dust mi te IgE antibody assay (units/volume)Ordered By: Audelia Mace on 01-07-2023 house dust mite IgE Qn (S) <0.10 kU/L Class 0 [facility] Serum Penicillium notatum Ig E antibody assay (units/volume)Ordered By: Audelia Mace on 01-07-2023 P. notatum IgE Qn (S) <0.10 kU/L Class 0 [facility] Serum Periplaneta americana IgE antibody assay (units/volume)Ordered By: Audelia Mace on 01-07-2023 Spanish Cockroach IgE Qn (S) <0.10 kU/L Class 0 [facility] Serum Sudanese thistle specif ic IgE antibody assayOrdered By: Audelia Mace on 01-07-2023 Saltwort IgE Qn (S) <0.10 kU/L Class 0 [facility] Serum birch specific IgE ant ibody assayOrdered By: Audelia Mace on 01-07-2023 Silver Birch IgE Qn (S) <0.10 kU/L Class 0 [facility] Serum black walnut IgE antib kelvin assay (units/volume)Ordered By: Audelia Mace on 01-07-2023 Black [place] IgE Qn (S) <0.10 kU/L Class 0 [facility] Serum cottonwood IgE antibod y assay (units/volume)Ordered By: Audelia Mace on 01-07-2023 [place] IgE Qn (S) <0.10 kU/L Class 0 [facility] Serum dog epithelium IgE ant ibody assay (units/volume)Ordered By: Audelia Mace on 01-07-2023 Dog epithelium IgE Qn (S) <0.10 kU/L Class 0 [facility] Serum mountain cedar specifi c IgE antibody assayOrdered By: Audelia Mace on 01-07-2023 Mountain Juniper IgE Qn (S) <0.10 kU/L Class 0 [facility] Serum pecan or hickory nut I gE antibody assay (units/volume)Ordered By: Audelia Mace on 01-07-2023 Pecan or [place] Nut IgE Qn (S) <0.10 kU/L Class 0 [facility] Serum sheep sorrel IgE antib kelvin assay (units/volume)Ordered By: Audelia Mace on 01-07-2023 Sheep [place] IgE Qn (S) <0.10 kU/L Class 0 [facility] Serum leobardo IgE antibody a ssay (units/volume)Ordered By: Audelia Mace on 01-07-2023 Leobardo IgE Qn (S) <0.10 kU/L Class 0 [facility] Serum white claude IgE antibody assay (units/volume)Ordered By: Audelia Mace on 01-07-2023 White Claude IgE Qn (S) <0.10 kU/L Class 0 [facility] Serum white elm IgE antibody assay (units/volume)Ordered By: Audelia Mace on 01-07-2023 White Elm IgE Qn (S) <0.10 kU/L Class 0 [facility] Serum white mulberry IgE ant ibody assay (units/volume)Ordered By: Audelia Mace on 01-07-2023 White mulberry IgE Qn (S) <0.10 kU/L Class 0 [facility] Absolute lymphocyte countOrd ered By: Dr. Tejeda on 10-27-2022 Lymphocytes Auto (Unsp spec) [#/Vol] 0.72 10*3/uL 0.83-4.51 [facility] Basophil percentageOrdered B y: Dr. Tejeda on 10-27-2022 Basophils/100 WBC (Bld) 1.7 % 0-1 [facility] Bilirubin [Mass/Vol] 0.40 mg/dL 0.20-1.00 [facility] Comment on above: For patients on eltr ombopag therapy, use of Dimension [place] TBIL is not recommended. Chloride [Moles/Vol] 105 mmol/L 98-107 [facility] Eosinophils/100 WBC (Bld) 1.5 % 0-5 [facility] Glucose [Mass/Vol] 98 mg/dL 74-106 [facility] Neutrophils (Bld) [#/Vol] 4.8 10*3/uL 2.0-7.7 [facility] Neutrophils/100 WBC (Bld) 79.8 % 47-70 [facility] Potassium [Moles/Vol] 3.7 mmol/L 3.5-5.1 [facility] Protein [Mass/Vol] 6.9 g/dL 6.4-8.2 [facility] Sodium [Moles/Vol] 137 mmol/L 136-145 [facility] WBC (Bld) [#/Vol] 6.1 10*3/uL 4.4-11.0 [facility] Blood erythrocytes count (nu mber/volume)Ordered By: Dr. Tejeda on 10-27-2022 RBC (Bld) [#/Vol] 3.60 10*6/uL 4.2-5.4 [facility] Blood hemoglobin measurement (mass/volume)Ordered By: Dr. Tejeda on 10-27-2022 Hemoglobin (Bld) [Mass/Vol] 11.8 g/dL 12.0-15.0 [facility] Blood lymphocytes/100 leukoc ytesOrdered By: Dr. Tejeda on 10-27-2022 Lymphocytes/100 WBC (Bld) 11.9 % 19-41 [facility] Blood monocytes/100 leukocyt esOrdered By: Dr. Tejeda on 10-27-2022 Monocytes/100 WBC (Bld) 4.8 % 0-10 [facility] Blood platelet mean volumeOr dered By: Dr. Tejeda on 10-27-2022 Platelet mean volume (Bld) [Entitic vol] 10.8 fL 6.2-12.0 [facility] Determination of erythrocyte mean corpuscular volume (MCV)Ordered By: Dr. Tejeda on 10-27-2022 MCV (RBC) [Entitic vol] 102.8 fL 81-99 [facility] Hematocrit Auto (Bld) [Volum e fraction]Ordered By: Dr. Tejeda on 10-27-2022 Hematocrit (Bld) [Volume fraction] 37.0 % 37-47 [facility] Laboratory - Chemistry and C hemistry - challengeOrdered By: Dr. Tejeda on 10-27-2022 ALP [Catalytic activity/Vol] 52 U/L 45-117 [facility] ALT [Catalytic activity/Vol] 22 U/L 13-56 [facility] CO2 [Moles/Vol] 30.0 mmol/L 21.0-32.0 [facility] Globulin (S) [Mass/Vol] 3.5 g/dL 2.2-4.2 [facility] Urea nitrogen/Creatinine [Mass ratio] 13.6 mg/mg 10-20 [facility] - Hematology and Cell countsOrdered By: Dr. Tejeda on 10-27-2022 Erythrocyte distribution width (RBC) [Entitic vol] 48.7 fL 35.1-43.9 [facility] Erythrocyte distribution width (RBC) [Ratio] 13.1 % 11.6-14.6 [facility] Immature granulocytes/100 WBC (Bld) 0.300 % 0.0-0.9 [facility] Comment on above: IG% - Immature Granu locytes (promyelocytes, myelocytes and metamyelocytes) > 1% indicates that a LEFT SHIFT is Present. MCH (RBC) [Entitic mass] 32.8 pg 27.0-32.0 [facility] Nucleated RBC/100 WBC (Bld) [Ratio] 0 % 0-5 [facility] MCHC Auto (RBC) [Mass/Vol]Or dered By: Dr. Tejeda on 10-27-2022 MCHC (RBC) [Mass/Vol] 31.9 g/dL 32-36 [facility] No Panel InformationOrdered By: Dr. Tejeda on 10-27-2022 Estimated GFR (MDRD) Amer 68 mL/min >60 [facility] Comment on above: GFR Calc Estimated GFR (MDRD) Non-Af Amer 56 mL/min >60 [facility] Comment on above: Non- GFR Calc Platelets bldOrdered By: Dr. Tejeda on 10-27-2022 Platelets (Bld) [#/Vol] 351 10*3/uL 150-450 [facility] Serum or plasma albumin leatha urement (mass/volume)Ordered By: Dr. Tejeda on 10-27-2022 Albumin [Mass/Vol] 3.4 g/dL 3.2-5.0 [facility] Serum or plasma albumin/glob ulin mass ratioOrdered By: Dr. Tejeda on 10-27-2022 Albumin/Globulin [Mass ratio] 1.0 {ratio} 0.9-2.4 [facility] Serum or plasma calcium leatha urement (mass/volume)Ordered By: Dr. Tejeda on 10-27-2022 Calcium [Mass/Vol] 9.2 mg/dL 8.5-10.1 [facility] Serum or plasma creatinine m easurement (mass/volume)Ordered By: Dr. Tejeda on 10-27-2022 Creatinine [Mass/Vol] 1.03 mg/dL 0.55-1.02 [facility] Comment on above: The validity of the calculated GFR & GFRAA in patients over 70 years has not been determined. Clinical correlation is essential. Serum or plasma urea nitroge n measurement (mass/volume)Ordered By: Dr. Tejeda on 10-27-2022 Urea nitrogen [Mass/Vol] 14 mg/dL 7-18 [facility] Thin prep Papanicolaou smear with manual screeningOrdered By: Dr. Tejeda on 10-27-2022 Thin prep Papanicolaou smear with manual screening 24 U/L 15-37 [facility] Thin prep Papanicolaou smear with manual screening 2 5-15 [facility] Absolute lymphocyte countOrd ered By: Dr. Dalal on 10-09-2022 Lymphocytes Auto (Unsp spec) [#/Vol] 0.65 10*3/uL 0.83-4.51 [facility] Basophil percentageOrdered B y: Dr. Dalal on 10-09-2022 Basophils/100 WBC (Bld) 0.6 % 0-1 [facility] Chloride [Moles/Vol] 100 mmol/L 98-107 [facility] Eosinophils/100 WBC (Bld) 0.2 % 0-5 [facility] Glucose [Mass/Vol] 102 mg/dL 74-106 [facility] Comment on above: Fasting Glucose resu lt from 100 to 125 mg/dL suggests IMPAIRED HOMEOSTASIS per A.D.A. criteria. Neutrophils (Bld) [#/Vol] 7.1 10*3/uL 2.0-7.7 [facility] Neutrophils/100 WBC (Bld) 84.1 % 47-70 [facility] Potassium [Moles/Vol] 3.5 mmol/L 3.5-5.1 [facility] Sodium [Moles/Vol] 137 mmol/L 136-145 [facility] WBC (Bld) [#/Vol] 8.4 10*3/uL 4.4-11.0 [facility] Blood erythrocytes count (nu mber/volume)Ordered By: Dr. Dalal on 10-09-2022 RBC (Bld) [#/Vol] 3.70 10*6/uL 4.2-5.4 [facility] Blood hemoglobin measurement (mass/volume)Ordered By: Dr. Dalal on 10-09-2022 Hemoglobin (Bld) [Mass/Vol] 12.1 g/dL 12.0-15.0 [facility] Blood lymphocytes/100 leukoc ytesOrdered By: Dr. Dalal on 10-09-2022 Lymphocytes/100 WBC (Bld) 7.7 % 19-41 [facility] Blood monocytes/100 leukocyt esOrdered By: Dr. Dalal on 10-09-2022 Monocytes/100 WBC (Bld) 6.8 % 0-10 [facility] Blood platelet mean volumeOr dered By: Dr. Dalal on 10-09-2022 Platelet mean volume (Bld) [Entitic vol] 10.2 fL 6.2-12.0 [facility] Determination of erythrocyte mean corpuscular volume (MCV)Ordered By: Dr. Dalal on 10-09-2022 MCV (RBC) [Entitic vol] 102.4 fL 81-99 [facility] Hematocrit Auto (Bld) [Volum e fraction]Ordered By: Dr. Dalal on 10-09-2022 Hematocrit (Bld) [Volume fraction] 37.9 % 37-47 [facility] Laboratory - Chemistry and C hemistry - challengeOrdered By: Dr. Dalal on 10-09-2022 CO2 [Moles/Vol] 31.0 mmol/L 21.0-32.0 [facility] Urea nitrogen/Creatinine [Mass ratio] 12.0 mg/mg 10-20 [facility] - Hematology and Cell countsOrdered By: Dr. Dalal on 10-09-2022 Erythrocyte distribution width (RBC) [Entitic vol] 47.7 fL 35.1-43.9 [facility] Erythrocyte distribution width (RBC) [Ratio] 12.9 % 11.6-14.6 [facility] Immature granulocytes/100 WBC (Bld) 0.600 % 0.0-0.9 [facility] Comment on above: IG% - Immature Granu locytes (promyelocytes, myelocytes and metamyelocytes) > 1% indicates that a LEFT SHIFT is Present. MCH (RBC) [Entitic mass] 32.7 pg 27.0-32.0 [facility] Nucleated RBC/100 WBC (Bld) [Ratio] 0 % 0-5 [facility] MCHC Auto (RBC) [Mass/Vol]Or dered By: Dr. Dalal on 10-09-2022 MCHC (RBC) [Mass/Vol] 31.9 g/dL 32-36 [facility] No Panel InformationOrdered By: Dr. Dalal on 10-09-2022 Estimated Creatinine Clearance Calc 56.67 ml/min [facility] Estimated GFR (MDRD) Amer 86 mL/min >60 [facility] Comment on above: GFR Calc Estimated GFR (MDRD) Non-Af Amer 71 mL/min >60 [facility] Comment on above: Non- GFR Calc Platelets bldOrdered By: Dr. Dalal on 10-09-2022 Platelets (Bld) [#/Vol] 252 10*3/uL 150-450 [facility] Respiratory pathogens DNA an d RNA 12b panel ADIA+probe (Unsp spec)Ordered By: Dr. Stoner on 10-09-2022 Respiratory Panel (PCR) Human [place] [facility] Serum or plasma calcium leatha urement (mass/volume)Ordered By: Dr. Dalal on 10-09-2022 Calcium [Mass/Vol] 8.8 mg/dL 8.5-10.1 [facility] Serum or plasma creatinine m easurement (mass/volume)Ordered By: Dr. Dalal on 10-09-2022 Creatinine [Mass/Vol] 0.84 mg/dL 0.55-1.02 [facility] Comment on above: The validity of the calculated GFR & GFRAA in patients over 70 years has not been determined. Clinical correlation is essential. Serum or plasma urea nitroge n measurement (mass/volume)Ordered By: Dr. Dalal on 10-09-2022 Urea nitrogen [Mass/Vol] 10 mg/dL 7-18 [facility] Thin prep Papanicolaou smear with manual screeningOrdered By: Dr. Dalal on 10-09-2022 Thin prep Papanicolaou smear with manual screening 6 5-15 [facility] Absolute lymphocyte countOrd ered By: Dr. Concepcion on 10-08-2022 Lymphocytes Auto (Unsp spec) [#/Vol] 0.41 10*3/uL 0.83-4.51 [facility] Basophil percentageOrdered B y: Dr. Concepcion on 10-08-2022 Basophils/100 WBC (Bld) 0.6 % 0-1 [facility] Chloride [Moles/Vol] 99 mmol/L 98-107 [facility] Eosinophils/100 WBC (Bld) 0.3 % 0-5 [facility] Glucose [Mass/Vol] 141 mg/dL 74-106 [facility] Comment on above: Fasting Glucose resu lt greater than or equal to 126 mg/dL suggests DIABETES MELLITUS per A.D.A. criteria. Neutrophils (Bld) [#/Vol] 7.9 10*3/uL 2.0-7.7 [facility] Neutrophils/100 WBC (Bld) 87.4 % 47-70 [facility] Potassium [Moles/Vol] 3.4 mmol/L 3.5-5.1 [facility] Comment on above: Slight Hemolysis, Re sult may be falsely increased. Sodium [Moles/Vol] 134 mmol/L 136-145 [facility] WBC (Bld) [#/Vol] 9.0 10*3/uL 4.4-11.0 [facility] Blood erythrocytes count (nu mber/volume)Ordered By: Dr. Concepcion on 10-08-2022 RBC (Bld) [#/Vol] 3.48 10*6/uL 4.2-5.4 [facility] Blood hemoglobin measurement (mass/volume)Ordered By: Dr. Concepcion on 10-08-2022 Hemoglobin (Bld) [Mass/Vol] 11.5 g/dL 12.0-15.0 [facility] Blood lymphocytes/100 leukoc ytesOrdered By: Dr. Concepcion on 10-08-2022 Lymphocytes/100 WBC (Bld) 4.5 % 19-41 [facility] Blood monocytes/100 leukocyt esOrdered By: Dr. Concepcion on 10-08-2022 Monocytes/100 WBC (Bld) 6.4 % 0-10 [facility] Blood platelet mean volumeOr dered By: Dr. Concepcion on 10-08-2022 Platelet mean volume (Bld) [Entitic vol] 10.1 fL 6.2-12.0 [facility] Determination of erythrocyte mean corpuscular volume (MCV)Ordered By: Dr. Concepcion on 10-08-2022 MCV (RBC) [Entitic vol] 99.4 fL 81-99 [facility] Hematocrit Auto (Bld) [Volum e fraction]Ordered By: Dr. Concepcion on 10-08-2022 Hematocrit (Bld) [Volume fraction] 34.6 % 37-47 [facility] INR in Blood by Coagulation assayOrdered By: Dr. Concepcion on 10-08-2022 INR Coag (Bld) [Relative time] 1.2 {INR} [facility] Influenza virus A and B and SARS-CoV-2 (COVID-19) Ag panel - Upper respiratory specimOrdered By: Dr. Concepcion on 10-08-2022 SARS-CoV-2 (COVID-19) RNA ADIA+probe Ql (Resp) [facility] - Chemistry and C hemistry - challengeOrdered By: Dr. Concepcion on 10-08-2022 CO2 [Moles/Vol] 28.0 mmol/L 21.0-32.0 [facility] Urea nitrogen/Creatinine [Mass ratio] 15.1 mg/mg 10-20 [facility] - CoagulationOrde red By: Dr. Concepcion on 10-08-2022 aPTT Coag (Bld) [Time] 29.6 s 24.1-36.2 [facility] PT Coag (PPP) [Time] 15.1 s 11.7-14.9 [facility] [facility] - Hematology and Cell countsOrdered By: Dr. Concepcion on 10-08-2022 Erythrocyte distribution width (RBC) [Entitic vol] 45.3 fL 35.1-43.9 [facility] Erythrocyte distribution width (RBC) [Ratio] 12.7 % 11.6-14.6 [facility] Immature granulocytes/100 WBC (Bld) 0.800 % 0.0-0.9 [facility] Comment on above: IG% - Immature Granu locytes (promyelocytes, myelocytes and metamyelocytes) > 1% indicates that a LEFT SHIFT is Present. MCH (RBC) [Entitic mass] 33.0 pg 27.0-32.0 [facility] Nucleated RBC/100 WBC (Bld) [Ratio] 0 % 0-5 [facility] MCHC Auto (RBC) [Mass/Vol]Or dered By: Dr. Concepcion on 10-08-2022 MCHC (RBC) [Mass/Vol] 33.2 g/dL 32-36 [facility] No Panel InformationOrdered By: Dr. Concepcion on 10-08-2022 Estimated Creatinine Clearance Calc 55.35 ml/min [facility] Estimated GFR (MDRD) Amer 83 mL/min >60 [facility] Comment on above: GFR Calc Estimated GFR (MDRD) Non-Af Amer 69 mL/min >60 [facility] Comment on above: Non- GFR Calc Troponin I High Sensitivity 7 pg/mL 3.0-54.0 [facility] Comment on above: Please Note: New Anila t Units and Gender Specific Reference Ranges. For more information see Policy Stat Procedure [place] High Sensitivity Troponin (TNIH) and attachments. Platelets bldOrdered By: Dr. Concepcion on 10-08-2022 Platelets (Bld) [#/Vol] 243 10*3/uL 150-450 [facility] Serum or plasma calcium leatha urement (mass/volume)Ordered By: Dr. Concepcion on 10-08-2022 Calcium [Mass/Vol] 8.5 mg/dL 8.5-10.1 [facility] Serum or plasma creatinine m easurement (mass/volume)Ordered By: Dr. Concepcion on 10-08-2022 Creatinine [Mass/Vol] 0.86 mg/dL 0.55-1.02 [facility] Comment on above: The validity of the calculated GFR & GFRAA in patients over 70 years has not been determined. Clinical correlation is essential. Serum or plasma urea nitroge n measurement (mass/volume)Ordered By: Dr. Concepcion on 10-08-2022 Urea nitrogen [Mass/Vol] 13 mg/dL 7-18 [facility] Thin prep Papanicolaou smear with manual screeningOrdered By: Dr. Concepcion on 10-08-2022 Thin prep Papanicolaou smear with manual screening 7 5-15 [facility] Erythrocyte sedimentation ra teOrdered By: Dr. Mace on 09-18-2022 ESR (Bld) [Velocity] 7 mm/h 0-30 [facility] Absolute lymphocyte countOrd ered By: Dr. Ugarte on 07-28-2022 Lymphocytes Auto (Unsp spec) [#/Vol] 0.83 10*3/uL 0.83-4.51 [facility] Basophil percentageOrdered B y: Dr. Ugarte on 07-28-2022 Basophils/100 WBC (Bld) 0.6 % 0-1 [facility] Bilirubin [Mass/Vol] 0.50 mg/dL 0.20-1.00 [facility] Comment on above: For patients on eltr ombopag therapy, use of Dimension [place] TBIL is not recommended. Chloride [Moles/Vol] 103 mmol/L 98-107 [facility] Eosinophils/100 WBC (Bld) 2.4 % 0-5 [facility] Glucose [Mass/Vol] 91 mg/dL 74-106 [facility] Neutrophils (Bld) [#/Vol] 3.7 10*3/uL 2.0-7.7 [facility] Neutrophils/100 WBC (Bld) 73.5 % 47-70 [facility] Potassium [Moles/Vol] 3.8 mmol/L 3.5-5.1 [facility] Protein [Mass/Vol] 6.2 g/dL 6.4-8.2 [facility] Sodium [Moles/Vol] 141 mmol/L 136-145 [facility] WBC (Bld) [#/Vol] 5.0 10*3/uL 4.4-11.0 [facility] Blood erythrocytes count (nu mber/volume)Ordered By: Dr. Ugarte on 07-28-2022 RBC (Bld) [#/Vol] 3.67 10*6/uL 4.2-5.4 [facility] Blood hemoglobin measurement (mass/volume)Ordered By: Dr. Ugarte on 07-28-2022 Hemoglobin (Bld) [Mass/Vol] 12.0 g/dL 12.0-15.0 [facility] Blood lymphocytes/100 leukoc ytesOrdered By: Dr. Ugarte on 07-28-2022 Lymphocytes/100 WBC (Bld) 16.7 % 19-41 [facility] Blood monocytes/100 leukocyt esOrdered By: Dr. Ugarte on 07-28-2022 Monocytes/100 WBC (Bld) 6.6 % 0-10 [facility] Blood platelet mean volumeOr dered By: Dr. Ugarte on 07-28-2022 Platelet mean volume (Bld) [Entitic vol] 10.5 fL 6.2-12.0 [facility] Determination of erythrocyte mean corpuscular volume (MCV)Ordered By: Dr. Ugarte on 07-28-2022 MCV (RBC) [Entitic vol] 100.8 fL 81-99 [facility] Hematocrit Auto (Bld) [Volum e fraction]Ordered By: Dr. Ugarte on 07-28-2022 Hematocrit (Bld) [Volume fraction] 37.0 % 37-47 [facility] Laboratory - Chemistry and C hemistry - challengeOrdered By: Dr. Ugarte on 07-28-2022 ALP [Catalytic activity/Vol] 45 U/L 45-117 [facility] ALT [Catalytic activity/Vol] 25 U/L 13-56 [facility] CO2 [Moles/Vol] 30.0 mmol/L 21.0-32.0 [facility] Cobalamin (Vitamin B12) [Mass/Vol] 277 pg/mL 211-911 [facility] Globulin (S) [Mass/Vol] 2.8 g/dL 2.2-4.2 [facility] Urea nitrogen/Creatinine [Mass ratio] 14.8 mg/mg 10-20 [facility] Laboratory - Hematology and Cell countsOrdered By: Dr. Ugarte on 07-28-2022 Erythrocyte distribution width (RBC) [Entitic vol] 44.2 fL 35.1-43.9 [facility] Erythrocyte distribution width (RBC) [Ratio] 12.2 % 11.6-14.6 [facility] Immature granulocytes/100 WBC (Bld) 0.200 % 0.0-0.9 [facility] Comment on above: IG% - Immature Granu locytes (promyelocytes, myelocytes and metamyelocytes) > 1% indicates that a LEFT SHIFT is Present. MCH (RBC) [Entitic mass] 32.7 pg 27.0-32.0 [facility] Nucleated RBC/100 WBC (Bld) [Ratio] 0 % 0-5 [facility] MCHC Auto (RBC) [Mass/Vol]Or dered By: Dr. Ugarte on 07-28-2022 MCHC (RBC) [Mass/Vol] 32.4 g/dL 32-36 [facility] No Panel InformationOrdered By: Dr. Ugarte on 07-28-2022 Estimated GFR (MDRD) Amer 75 mL/min >60 [facility] Comment on above: GFR Calc Estimated GFR (MDRD) Non-Af Amer 62 mL/min >60 [facility] Comment on above: Non- GFR Calc Thyroid Stimulating Hormone (TSH) 2.31 uIU/mL 0.358-3.74 [facility] Whole Blood Vitamin B1 Level 125.8 nmol/L 66.5-200.0 [facility] Comment on above: Performed at: [employer] [facility] [address] [id number] Director: Ava Jason MD, Phone: [phone] Platelets bldOrdered By: Dr. Ugarte on 07-28-2022 Platelets (Bld) [#/Vol] 295 10*3/uL 150-450 [facility] Serum or plasma albumin leatha urement (mass/volume)Ordered By: Dr. Ugarte on 07-28-2022 Albumin [Mass/Vol] 3.4 g/dL 3.2-5.0 [facility] Serum or plasma albumin/glob ulin mass ratioOrdered By: Dr. Ugarte on 07-28-2022 Albumin/Globulin [Mass ratio] 1.2 {ratio} 0.9-2.4 [facility] Serum or plasma calcium leatha urement (mass/volume)Ordered By: Dr. Ugarte on 07-28-2022 Calcium [Mass/Vol] 9.3 mg/dL 8.5-10.1 [facility] Serum or plasma creatinine m easurement (mass/volume)Ordered By: Dr. Ugarte on 07-28-2022 Creatinine [Mass/Vol] 0.94 mg/dL 0.55-1.02 [facility] Comment on above: The validity of the calculated GFR & GFRAA in patients over 70 years has not been determined. Clinical correlation is essential. Serum or plasma folate measu rement (mass/volume)Ordered By: Dr. Ugarte on 07-28-2022 Folate [Mass/Vol] 31.20 ng/mL 3.1-55.4 [facility] Serum or plasma urea nitroge n measurement (mass/volume)Ordered By: Dr. Ugarte on 07-28-2022 Urea nitrogen [Mass/Vol] 14 mg/dL 7-18 [facility] Thin prep Papanicolaou smear with manual screeningOrdered By: Dr. Ugarte on 07-28-2022 Thin prep Papanicolaou smear with manual screening 24 U/L 15-37 [facility] Thin prep Papanicolaou smear with manual screening 8 5-15 [facility] Absolute lymphocyte countOrd ered By: Dr. Tejeda on 07-24-2022 Lymphocytes Auto (Unsp spec) [#/Vol] 0.92 10*3/uL 0.83-4.51 [facility] Basophil percentageOrdered B y: Dr. Tejeda on 07-24-2022 Basophils/100 WBC (Bld) 1.3 % 0-1 [facility] Bilirubin [Mass/Vol] 0.60 mg/dL 0.20-1.00 [facility] Comment on above: For patients on eltr ombopag therapy, use of Dimension [place] TBIL is not recommended. Chloride [Moles/Vol] 102 mmol/L 98-107 [facility] Eosinophils/100 WBC (Bld) 1.5 % 0-5 [facility] Glucose [Mass/Vol] 84 mg/dL 74-106 [facility] Neutrophils (Bld) [#/Vol] 3.1 10*3/uL 2.0-7.7 [facility] Neutrophils/100 WBC (Bld) 66.1 % 47-70 [facility] Potassium [Moles/Vol] 3.6 mmol/L 3.5-5.1 [facility] Protein [Mass/Vol] 6.3 g/dL 6.4-8.2 [facility] Sodium [Moles/Vol] 137 mmol/L 136-145 [facility] WBC (Bld) [#/Vol] 4.7 10*3/uL 4.4-11.0 [facility] Blood erythrocytes count (nu mber/volume)Ordered By: Dr. Tejeda on 07-24-2022 RBC (Bld) [#/Vol] 3.52 10*6/uL 4.2-5.4 [facility] Blood hemoglobin measurement (mass/volume)Ordered By: Dr. Tejeda on 07-24-2022 Hemoglobin (Bld) [Mass/Vol] 11.7 g/dL 12.0-15.0 [facility] Blood lymphocytes/100 leukoc ytesOrdered By: Dr. Tejeda on 07-24-2022 Lymphocytes/100 WBC (Bld) 19.6 % 19-41 [facility] Blood monocytes/100 leukocyt esOrdered By: Dr. Tejeda on 07-24-2022 Monocytes/100 WBC (Bld) 11.1 % 0-10 [facility] Blood platelet mean volumeOr dered By: Dr. Tejeda on 07-24-2022 Platelet mean volume (Bld) [Entitic vol] 10.9 fL 6.2-12.0 [facility] Determination of erythrocyte mean corpuscular volume (MCV)Ordered By: Dr. Tejeda on 07-24-2022 MCV (RBC) [Entitic vol] 102.0 fL 81-99 [facility] Hematocrit Auto (Bld) [Volum e fraction]Ordered By: Dr. Tejeda on 07-24-2022 Hematocrit (Bld) [Volume fraction] 35.9 % 37-47 [facility] Laboratory - Chemistry and C hemistry - challengeOrdered By: Dr. Tejeda on 07-24-2022 ALP [Catalytic activity/Vol] 50 U/L 45-117 [facility] ALT [Catalytic activity/Vol] 23 U/L 13-56 [facility] CO2 [Moles/Vol] 31.0 mmol/L 21.0-32.0 [facility] Globulin (S) [Mass/Vol] 2.8 g/dL 2.2-4.2 [facility] Urea nitrogen/Creatinine [Mass ratio] 13.3 mg/mg 10-20 [facility] Laboratory - Hematology and Cell countsOrdered By: Dr. Tejeda on 07-24-2022 Erythrocyte distribution width (RBC) [Entitic vol] 44.8 fL 35.1-43.9 [facility] Erythrocyte distribution width (RBC) [Ratio] 12.2 % 11.6-14.6 [facility] Immature granulocytes/100 WBC (Bld) 0.400 % 0.0-0.9 [facility] Comment on above: IG% - Immature Granu locytes (promyelocytes, myelocytes and metamyelocytes) > 1% indicates that a LEFT SHIFT is Present. MCH (RBC) [Entitic mass] 33.2 pg 27.0-32.0 [facility] Nucleated RBC/100 WBC (Bld) [Ratio] 0 % 0-5 [facility] MCHC Auto (RBC) [Mass/Vol]Or dered By: Dr. Tejeda on 07-24-2022 MCHC (RBC) [Mass/Vol] 32.6 g/dL 32-36 [facility] No Panel InformationOrdered By: Dr. Tejeda on 07-24-2022 Estimated GFR (MDRD) Amer 79 mL/min >60 [facility] Comment on above: GFR Calc Estimated GFR (MDRD) Non-Af Amer 66 mL/min >60 [facility] Comment on above: Non- GFR Calc Platelets bldOrdered By: Dr. Tejeda on 07-24-2022 Platelets (Bld) [#/Vol] 296 10*3/uL 150-450 [facility] Serum or plasma albumin leatha urement (mass/volume)Ordered By: Dr. Tejeda on 07-24-2022 Albumin [Mass/Vol] 3.5 g/dL 3.2-5.0 [facility] Serum or plasma albumin/glob ulin mass ratioOrdered By: Dr. Tejeda on 07-24-2022 Albumin/Globulin [Mass ratio] 1.2 {ratio} 0.9-2.4 [facility] Serum or plasma calcium leatha urement (mass/volume)Ordered By: Dr. Tejeda on 07-24-2022 Calcium [Mass/Vol] 9.0 mg/dL 8.5-10.1 [facility] Serum or plasma creatinine m easurement (mass/volume)Ordered By: Dr. Tejeda on 07-24-2022 Creatinine [Mass/Vol] 0.90 mg/dL 0.55-1.02 [facility] Comment on above: The validity of the calculated GFR & GFRAA in patients over 70 years has not been determined. Clinical correlation is essential. Serum or plasma urea nitroge n measurement (mass/volume)Ordered By: Dr. Tejeda on 07-24-2022 Urea nitrogen [Mass/Vol] 12 mg/dL 7-18 [facility] Thin prep Papanicolaou smear with manual screeningOrdered By: Dr. Tejeda on 07-24-2022 Thin prep Papanicolaou smear with manual screening 22 U/L 15-37 [facility] Thin prep Papanicolaou smear with manual screening 4 5-15 [facility] Absolute lymphocyte countOrd ered By: Dr. Tejeda on 05-07-2022 Lymphocytes Auto (Unsp spec) [#/Vol] 1.31 10*3/uL 0.83-4.51 [facility] Basophil percentageOrdered B y: Dr. Tejeda on 05-07-2022 Basophils/100 WBC (Bld) 0.7 % 0-1 [facility] Bilirubin [Mass/Vol] 0.40 mg/dL 0.20-1.00 [facility] Comment on above: For patients on eltr ombopag therapy, use of Dimension [place] TBIL is not recommended. Chloride [Moles/Vol] 105 mmol/L 98-107 [facility] Eosinophils/100 WBC (Bld) 1.6 % 0-5 [facility] Glucose [Mass/Vol] 84 mg/dL 74-106 [facility] Neutrophils (Bld) [#/Vol] 3.7 10*3/uL 2.0-7.7 [facility] Neutrophils/100 WBC (Bld) 65.6 % 47-70 [facility] Potassium [Moles/Vol] 3.5 mmol/L 3.5-5.1 [facility] Protein [Mass/Vol] 6.4 g/dL 6.4-8.2 [facility] Sodium [Moles/Vol] 141 mmol/L 136-145 [facility] WBC (Bld) [#/Vol] 5.7 10*3/uL 4.4-11.0 [facility] Blood erythrocytes count (nu mber/volume)Ordered By: Dr. Tejeda on 05-07-2022 RBC (Bld) [#/Vol] 3.63 10*6/uL 4.2-5.4 [facility] Blood hemoglobin measurement (mass/volume)Ordered By: Dr. Tejeda on 05-07-2022 Hemoglobin (Bld) [Mass/Vol] 12.0 g/dL 12.0-15.0 [facility] Blood lymphocytes/100 leukoc ytesOrdered By: Dr. Tejeda on 05-07-2022 Lymphocytes/100 WBC (Bld) 23.1 % 19-41 [facility] Blood monocytes/100 leukocyt esOrdered By: Dr. Tejeda on 05-07-2022 Monocytes/100 WBC (Bld) 8.6 % 0-10 [facility] Blood platelet mean volumeOr dered By: Dr. Tejeda on 05-07-2022 Platelet mean volume (Bld) [Entitic vol] 11.0 fL 6.2-12.0 [facility] Determination of erythrocyte mean corpuscular volume (MCV)Ordered By: Dr. Tejeda on 05-07-2022 MCV (RBC) [Entitic vol] 100.6 fL 81-99 [facility] Hematocrit Auto (Bld) [Volum e fraction]Ordered By: Dr. Tejeda on 05-07-2022 Hematocrit (Bld) [Volume fraction] 36.5 % 37-47 [facility] Laboratory - Chemistry and C hemistry - challengeOrdered By: Dr. Tejeda on 05-07-2022 ALP [Catalytic activity/Vol] 53 U/L 45-117 [facility] ALT [Catalytic activity/Vol] 30 U/L 13-56 [facility] CO2 [Moles/Vol] 32.0 mmol/L 21.0-32.0 [facility] Globulin (S) [Mass/Vol] 3.1 g/dL 2.2-4.2 [facility] Urea nitrogen/Creatinine [Mass ratio] 16.8 mg/mg 10-20 [facility] Laboratory - Hematology and Cell countsOrdered By: Dr. Tejeda on 05-07-2022 Erythrocyte distribution width (RBC) [Entitic vol] 46.1 fL 35.1-43.9 [facility] Erythrocyte distribution width (RBC) [Ratio] 12.7 % 11.6-14.6 [facility] Immature granulocytes/100 WBC (Bld) 0.400 % 0.0-0.9 [facility] Comment on above: IG% - Immature Granu locytes (promyelocytes, myelocytes and metamyelocytes) > 1% indicates that a LEFT SHIFT is Present. MCH (RBC) [Entitic mass] 33.1 pg 27.0-32.0 [facility] Nucleated RBC/100 WBC (Bld) [Ratio] 0 % 0-5 [facility] MCHC Auto (RBC) [Mass/Vol]Or dered By: Dr. Tejeda on 05-07-2022 MCHC (RBC) [Mass/Vol] 32.9 g/dL 32-36 [facility] No Panel InformationOrdered By: Dr. Tejeda on 05-07-2022 Estimated GFR (MDRD) Amer 69 mL/min >60 [facility] Comment on above: GFR Calc Estimated GFR (MDRD) Non-Af Amer 57 mL/min >60 [facility] Comment on above: Non- GFR Calc Platelets bldOrdered By: Dr. Tejeda on 05-07-2022 Platelets (Bld) [#/Vol] 339 10*3/uL 150-450 [facility] Serum or plasma albumin leatha urement (mass/volume)Ordered By: Dr. Tejeda on 05-07-2022 Albumin [Mass/Vol] 3.3 g/dL 3.2-5.0 [facility] Serum or plasma albumin/glob ulin mass ratioOrdered By: Dr. Tejeda on 05-07-2022 Albumin/Globulin [Mass ratio] 1.1 {ratio} 0.9-2.4 [facility] Serum or plasma calcium leatha urement (mass/volume)Ordered By: Dr. Tejeda on 05-07-2022 Calcium [Mass/Vol] 9.0 mg/dL 8.5-10.1 [facility] Serum or plasma creatinine m easurement (mass/volume)Ordered By: Dr. Tejeda on 05-07-2022 Creatinine [Mass/Vol] 1.01 mg/dL 0.55-1.02 [facility] Comment on above: The validity of the calculated GFR & GFRAA in patients over 70 years has not been determined. Clinical correlation is essential. Serum or plasma urea nitroge n measurement (mass/volume)Ordered By: Dr. Tejeda on 05-07-2022 Urea nitrogen [Mass/Vol] 17 mg/dL 7-18 [facility] Thin prep Papanicolaou smear with manual screeningOrdered By: Dr. Tejeda on 05-07-2022 Thin prep Papanicolaou smear with manual screening 26 U/L 15-37 [facility] Thin prep Papanicolaou smear with manual screening 4 5-15 [facility] Basophil percentageOrdered B y: Dr. Stoner on 04-30-2022 Chloride [Moles/Vol] 115 mmol/L 98-107 [facility] Cholesterol [Mass/Vol] 150 mg/dL <200 [facility] Comment on above: <200 mg/dL Desirable 200-240 mg/dL Borderline >240 mg/dL High Risk Glucose [Mass/Vol] 90 mg/dL 74-106 [facility] Potassium [Moles/Vol] 3.6 mmol/L 3.5-5.1 [facility] Sodium [Moles/Vol] 147 mmol/L 136-145 [facility] Triglyceride [Mass/Vol] 99 mg/dL <199 [facility] Comment on above: The drugs N-Acetylcy steine and Metamizole may falsely depress this assay.Serum Triglycerides Reference Interval Normal <150 mg/dL Borderline high 150 - 199 mg/dL High 200 - 499 mg/dL Very High > or = 500 mg/dL Culture, urineOrdered By: Dr Kd Michele on 04-30-2022 Bacteria identified Cx Nom (U) Mixed Gram Pos & Gram Neg Org [facility] Laboratory - Chemistry and C hemistry - challengeOrdered By: Dr. Stoner on 04-30-2022 CO2 [Moles/Vol] 29.0 mmol/L 21.0-32.0 [facility] Urea nitrogen/Creatinine [Mass ratio] 14.3 mg/mg 10-20 [facility] No Panel InformationOrdered By: Dr. Stoner on 04-30-2022 Estimated Creatinine Clearance Calc 45.34 ml/min [facility] Estimated GFR (MDRD) Amer 66 mL/min >60 [facility] Comment on above: GFR Calc Estimated GFR (MDRD) Non-Af Amer 55 mL/min >60 [facility] Comment on above: Non- GFR Calc Thyroid Stimulating Hormone (TSH) 3.39 uIU/mL 0.358-3.74 [facility] Serum or plasma calcium leatha urement (mass/volume)Ordered By: Dr. Stoner on 04-30-2022 Calcium [Mass/Vol] 8.6 mg/dL 8.5-10.1 [facility] Serum or plasma cholesterol in HDL measurement (mass/volume)Ordered By: Dr. Stoner on 04-30-2022 Cholesterol in HDL [Mass/Vol] 56 mg/dL >40 [facility] Comment on above: The drugs N-Acetylcy steine and Metamizole may falsely depress this assay. Reference Range HDL <40 mg/dL Low HDL Cholesterol HDL >or= 60 mg/dL High HDL Cholesterol Serum or plasma cholesterol in VLDL measurement (mass/volume)Ordered By: Dr. Stoner on 04-30-2022 Cholesterol in VLDL [Mass/Vol] 20 mg/dL 5-40 [facility] Serum or plasma creatinine m easurement (mass/volume)Ordered By: Dr. Stoner on 04-30-2022 Creatinine [Mass/Vol] 1.05 mg/dL 0.55-1.02 [facility] Comment on above: The validity of the calculated GFR & GFRAA in patients over 70 years has not been determined. Clinical correlation is essential. Serum or plasma low density lipoprotein (LDL) cholesterol measurement (mass/volume)Ordered By: Dr. Stoner on 04-30-2022 Cholesterol in LDL [Mass/Vol] 74 mg/dL 0-130 [facility] Serum or plasma urea nitroge n measurement (mass/volume)Ordered By: Dr. Stoner on 04-30-2022 Urea nitrogen [Mass/Vol] 15 mg/dL 7-18 [facility] Thin prep Papanicolaou smear with manual screeningOrdered By: Dr. Stoner on 04-30-2022 Thin prep Papanicolaou smear with manual screening 3 5-15 [facility] Absolute lymphocyte countOrd ered By: Dr. Michele on 2022 Lymphocytes Auto (Unsp spec) [#/Vol] 1.88 10*3/uL 0.83-4.51 [facility] Basophil percentageOrdered B y: Dr. Michele on 2022 Basophil percentage 10-25 SEEN /hpf 0-5 [facility] Basophils/100 WBC (Bld) 0.4 % 0-1 [facility] Bilirubin [Mass/Vol] 0.60 mg/dL 0.20-1.00 [facility] Comment on above: For patients on eltr ombopag therapy, use of Dimension [place] TBIL is not recommended. Eosinophils/100 WBC (Bld) 0.2 % 0-5 [facility] Lactate [Moles/Vol] 0.9 mmol/L 0.4-2.0 [facility] Neutrophils (Bld) [#/Vol] 6.0 10*3/uL 2.0-7.7 [facility] Neutrophils/100 WBC (Bld) 70.0 % 47-70 [facility] Protein [Mass/Vol] 6.3 g/dL 6.4-8.2 [facility] WBC (Bld) [#/Vol] 8.5 10*3/uL 4.4-11.0 [facility] Basophil percentageOrdered B y: Dr. Stoner on 2022 Basophil percentage 2.9 mg/dL 2.5-4.9 [facility] Basophil percentageon 2021 Chloride [Moles/Vol] 107 mmol/L 98-[address] [facility] Work Phone: Glucose [Mass/Vol] 86 mg/dL 74-106 [facility] Work Phone: Potassium [Moles/Vol] 3.2 mmol/L 3.5-5.1 [place] [facility] Work Phone: Sodium [Moles/Vol] 142 mmol/L 136-145 [facility] Work Phone: Bilirubin Test strip Ql (U)O rdered By: Dr. Michele on 2022 Bilirubin Ql (U) 1 mg/dL Negative [facility] Comment on above: COLOR OF URINE MAY A FFECT DIPSTICK RESULTS. Blood erythrocytes count (nu mber/volume)Ordered By: Dr. Michele on 2022 RBC (Bld) [#/Vol] 3.64 10*6/uL 4.2-5.4 [facility] Blood hemoglobin measurement (mass/volume)Ordered By: Dr. Michele on 2022 Hemoglobin (Bld) [Mass/Vol] 12.2 g/dL 12.0-15.0 [facility] Blood lymphocytes/100 leukoc ytesOrdered By: Dr. Michele on 2022 Lymphocytes/100 WBC (Bld) 22.0 % 19-41 [facility] Blood monocytes/100 leukocyt esOrdered By: Dr. Michele on 2022 Monocytes/100 WBC (Bld) 7.0 % 0-10 [facility] Blood platelet mean volumeOr dered By: Dr. Michele on 2022 Platelet mean volume (Bld) [Entitic vol] 10.5 fL 6.2-12.0 [facility] Determination of erythrocyte mean corpuscular volume (MCV)Ordered By: Dr. Michele on 2022 MCV (RBC) [Entitic vol] 100.5 fL 81-99 [facility] Hematocrit Auto (Bld) [Volum e fraction]Ordered By: Dr. Michele on 2022 Hematocrit (Bld) [Volume fraction] 36.6 % 37-47 [facility] INR in Blood by Coagulation assayOrdered By: Dr. Michele on 2022 INR Coag (Bld) [Relative time] 1.0 {INR} [facility] Ketones Test strip Ql (U)Ord ered By: Dr. Michele on 2022 Ketones Ql (U) 5 mg/dl Negative [facility] Laboratory - Chemistry and C hemistry - challengeOrdered By: Dr. Michele on 2022 ALP [Catalytic activity/Vol] 43 U/L 45-117 [facility] ALT [Catalytic activity/Vol] 25 U/L 13-56 [facility] Globulin (S) [Mass/Vol] 3.2 g/dL 2.2-4.2 [facility] Laboratory - Chemistry and C hemistry - challengeon 2022 CO2 [Moles/Vol] 30.0 mmol/L 21.0-32.0 [facility] Work Phone: Urea nitrogen/Creatinine [Mass ratio] 16.7 mg/mg 05-07 [facility] Work Phone: Laboratory - Chemistry and C hemistry - challengeOrdered By: Dr. Stoner on 2022 Magnesium [Mass/Vol] 2.2 mg/dL 1.6-2.6 [facility] Laboratory - CoagulationOrde red By: Dr. Michele on 2022 aPTT Coag (Bld) [Time] 26.3 s 24.1-36.2 [facility] PT Coag (PPP) [Time] 13.0 s 11.7-14.9 [facility] Laboratory - Hematology and Cell countsOrdered By: Dr. Michele on 2022 Erythrocyte distribution width (RBC) [Entitic vol] 46.2 fL 35.1-43.9 [facility] Erythrocyte distribution width (RBC) [Ratio] 12.5 % 11.6-14.6 [facility] Immature granulocytes/100 WBC (Bld) 0.400 % 0.0-0.9 [facility] Comment on above: IG% - Immature Granu locytes (promyelocytes, myelocytes and metamyelocytes) > 1% indicates that a LEFT SHIFT is Present. MCH (RBC) [Entitic mass] 33.5 pg 27.0-32.0 [facility] Nucleated RBC/100 WBC (Bld) [Ratio] 0 % 0-5 [facility] MCHC Auto (RBC) [Mass/Vol]Or dered By: Dr. Michele on 2022 MCHC (RBC) [Mass/Vol] 33.3 g/dL 32-36 [facility] Mucus LM Ql (Urine sed)Order ed By: Dr. Michele on 2022 Mucus Ql (Urine sed) 0 SEEN /hpf [facility] Nitrite Test strip Ql (U)Ord ered By: Dr. Michele on 2022 Nitrite Ql (U) Negative Negative [facility] No Panel Informationon 04-29 Estimated Creatinine Clearance Calc 44.86 ml/min [facility] Work Phone: Estimated GFR (MDRD) Amer 69 mL/min >60 [facility] Work Phone: Comment on above: GFR Calc Estimated GFR (MDRD) Non-Af Amer 57 mL/min >60 [facility] Work Phone: Comment on above: Non- GFR Calc No Panel InformationOrdered By: Dr. Michele on 2022 Troponin I High Sensitivity 8 pg/mL 3.0-54.0 [facility] Comment on above: Please Note: New Anila t Units and Gender Specific Reference Ranges. For more information see Policy Stat Procedure [place] High Sensitivity Troponin (TNIH) and attachments. Platelets bldOrdered By: Dr. Michele on 2022 Platelets (Bld) [#/Vol] 320 10*3/uL 150-450 [facility] Protein Test strip Ql (U)Ord ered By: Dr. Michele on 2022 Protein Ql (U) 30 mg/dl Negative [facility] Serum or plasma albumin leatha urement (mass/volume)Ordered By: Dr. Michele on 2022 Albumin [Mass/Vol] 3.1 g/dL 3.2-5.0 [facility] Serum or plasma albumin/glob ulin mass ratioOrdered By: Dr. Michele on 2022 Albumin/Globulin [Mass ratio] 1.0 {ratio} 0.9-2.4 [facility] Serum or plasma calcium leatha urement (mass/volume)on 2022 Calcium [Mass/Vol] 8.9 mg/dL 8.5-10.1 [facility] Work Phone: Serum or plasma creatinine m easurement (mass/volume)on 2022 Creatinine [Mass/Vol] 1.02 mg/dL 0.55-1.02 Nguyen ster [facility] Work Phone: Comment on above: The validity of the calculated GFR & GFRAA in patients over 70 years has not been determined. Clinical correlation is essential. Serum or plasma urea nitroge n measurement (mass/volume)on 2022 Urea nitrogen [Mass/Vol] 17 mg/dL 7-18 [facility] Work Phone: Squamous epithelial cells de tection in urine sediment by light microscopyOrdered By: Dr. Michele on 2022 Epithelial cells.squamous LM Ql (Urine sed) 0-5 SEEN /hpf 5-10 [facility] Thin prep Papanicolaou smear with manual screeningOrdered By: Dr. Michele on 2022 Thin prep Papanicolaou smear with manual screening 21 U/L 15-37 [facility] Thin prep Papanicolaou smear with manual screeningon 2022 Thin prep Papanicolaou smear with manual screening 5 5-15 [facility] Work Phone: Urine blood detectionOrdered By: Dr. Michele on 2022 RBC Ql (U) Negative Negative [facility] RBC Ql (U) 0 SEEN /hpf 0-5 [facility] Urine clarityOrdered By: Dr. Michele on 2022 Clarity (U) Sl. Cloudy Clear [facility] Urine color determinationOrd ered By: Dr. Michele on 2022 Color (U) Yellow Yellow [facility] Urine glucose detectionOrder ed By: Dr. Michele on 2022 Glucose Ql (U) Normal mg/dl Normal [facility] Urine leukocyte esterase det ection by dipstickOrdered By: Dr. Michele on 2022 Leukocyte esterase Test strip Ql (U) 100 /ul Negative [facility] Urine pHOrdered By: Dr. Soren mccoy on 2022 pH (U) 7.0 [pH] 5.0 - 8.0 [facility] Urine sediment bacteria coun t by microscopy (number/high power field)Ordered By: Dr. Michele on 2022 Bacteria LM.HPF (Urine sed) [#/Area] 0 /[HPF] None Seen [facility] Urine specific gravity measu rementOrdered By: Dr. Michele on 2022 Specific gravity (U) [Rel density] 1.010 1.002-1.03 0 [facility] Urobilinogen Auto test strip Ql (U)Ordered By: Dr. Michele on 2022 Urobilinogen Ql (U) Normal mg/dl Normal [facility] No Panel Informationon 02-02 Miscellaneous Test Comment MAILED SPECIMEN [facility] Work Phone: [phone] Absolute lymphocyte counton 01-28-2022 Lymphocytes Auto (Unsp spec) [#/Vol] 1.16 10*3/uL 0.83-4.51 [facility] Work Phone: [phone] Basophil percentageon 2021 Basophils/100 WBC (Bld) 1.0 % 0-1 [facility] Work Phone: [phone] Bilirubin [Mass/Vol] 0.50 mg/dL 0.20-1.00 [facility] Work Phone: [phone] Comment on above: For patients on eltr ombopag therapy, use of Dimension [place] TBIL is not recommended. Chloride [Moles/Vol] 102 mmol/L 98-107 [facility] Work Phone: Eosinophils/100 WBC (Bld) 1.9 % 0-5 [facility] Work Phone: [phone] Glucose [Mass/Vol] 81 mg/dL 74-106 [facility] Work Phone: Neutrophils (Bld) [#/Vol] 3.4 10*3/uL 2.0-7.7 [facility] Work Phone: Neutrophils/100 WBC (Bld) 65.3 % 47-70 [facility] Work Phone: Potassium [Moles/Vol] 3.7 mmol/L 3.5-5.1 [facility]: Protein [Mass/Vol] 6.4 g/dL 6.4-8.2 [facility] Work Phone: Sodium [Moles/Vol] 137 mmol/L 136-145 [facility] Work Phone: WBC (Bld) [#/Vol] 5.1 10*3/uL 4.4-11.0 [facility] Work Phone: Bilirubin Test strip Ql (U)o n 01-28-2022 Bilirubin Ql (U) Negative Negative [facility] Work Phone: Blood erythrocytes count (nu mber/volume)on 01-28-2022 RBC (Bld) [#/Vol] 3.58 10*6/uL 4.2-5.4 [facility] Work Phone: Blood hemoglobin measurement (mass/volume)on 01-28-2022 Hemoglobin (Bld) [Mass/Vol] 11.7 g/dL 12.0-15.0 [facility] Work Phone: Blood lymphocytes/100 leukoc yteson 01-28-2022 Lymphocytes/100 WBC (Bld) 22.6 % 19-41 [facility] Work Phone: Blood monocytes/100 leukocyt eson 01-28-2022 Monocytes/100 WBC (Bld) 9.0 % 0-10 [facility] Work Phone: Blood platelet mean volumeon 01-28-2022 Platelet mean volume (Bld) [Entitic vol] 10.8 fL 6.2-12.0 [facility] Work Phone: Determination of erythrocyte mean corpuscular volume (MCV)on 01-28-2022 MCV (RBC) [Entitic vol] 99.4 fL 81-99 [facility] Work Phone: Hematocrit Auto (Bld) [Volum e fraction]on 01-28-2022 Hematocrit (Bld) [Volume fraction] 35.6 % 37-47 [facility] Work Phone: [phone] Ketones Test strip Ql (U)on 01-28-2022 Ketones Ql (U) Negative Negative [facility] Work Phone: [phone] Laboratory - Chemistry and C hemistry - challengeon 01-28-2022 ALP [Catalytic activity/Vol] 58 U/L 45-117 [facility] Work Phone: ALT [Catalytic activity/Vol] 26 U/L 13-56 [facility] Work Phone: CO2 [Moles/Vol] 31.0 mmol/L 21.0-32.0 [facility] Work Phone: [phone] Globulin (S) [Mass/Vol] 3.0 g/dL 2.2-4.2 [facility] Work Phone: [phone] Urea nitrogen/Creatinine [Mass ratio] 16.2 mg/mg 10-20 [facility] Work Phone: Laboratory - Hematology and Cell countson 01-28-2022 Erythrocyte distribution width (RBC) [Entitic vol] 45.3 fL 35.1-43.9 [facility] Work Phone: Erythrocyte distribution width (RBC) [Ratio] 12.6 % 11.6-14.6 [facility] Work Phone: Immature granulocytes/100 WBC (Bld) 0.200 % 0.0-0.9 [facility] Work Phone: [phone] Comment on above: IG% - Immature Granu locytes (promyelocytes, myelocytes and metamyelocytes) > 1% indicates that a LEFT SHIFT is Present. MCH (RBC) [Entitic mass] 32.7 pg 27.0-32.0 [facility] Work Phone: Nucleated RBC/100 WBC (Bld) [Ratio] 0 % 0-5 [facility] Work Phone: MCHC Auto (RBC) [Mass/Vol]on 01-28-2022 MCHC (RBC) [Mass/Vol] 32.9 g/dL 32-36 [facility] Work Phone: [phone] Nitrite Test strip Ql (U)on 01-28-2022 Nitrite Ql (U) Negative Negative [facility] Work Phone: No Panel Informationon 01-28 Estimated GFR (MDRD) Amer 83 mL/min >60 [facility] Work Phone: Comment on above: GFR Calc Estimated GFR (MDRD) Non-Af Amer 69 mL/min >60 [facility] Work Phone: Comment on above: Non- GFR Calc Platelets bldon 01-28-2022 Platelets (Bld) [#/Vol] 297 10*3/uL 150-450 [facility] Work Phone: [phone] Protein Test strip Ql (U)on 01-28-2022 Protein Ql (U) Negative Negative [facility] Work Phone: Serum or plasma albumin leatha urement (mass/volume)on 01-28-2022 Albumin [Mass/Vol] 3.4 g/dL 3.2-5.0 [facility] Work Phone: [phone] Serum or plasma albumin/glob ulin mass ratioon 01-28-2022 Albumin/Globulin [Mass ratio] 1.1 {ratio} 0.9-2.4 [facility] Work Phone: [phone] Serum or plasma calcium leatha urement (mass/volume)on 01-28-2022 Calcium [Mass/Vol] 9.1 mg/dL 8.5-10.1 [facility] Work Phone: [phone] Serum or plasma creatinine m easurement (mass/volume)on 01-28-2022 Creatinine [Mass/Vol] 0.86 mg/dL 0.55-1.02 [facility] Work Phone: Comment on above: The validity of the calculated GFR & GFRAA in patients over 70 years has not been determined. Clinical correlation is essential. Serum or plasma urea nitroge n measurement (mass/volume)on 01-28-2022 Urea nitrogen [Mass/Vol] 14 mg/dL 7-18 [facility] Work Phone: Thin prep Papanicolaou smear with manual screeningon 01-28-2022 Thin prep Papanicolaou smear with manual screening 26 U/L 15-37 [facility] Work Phone: [phone] Thin prep Papanicolaou smear with manual screening 4 5-15 [facility] Work Phone: [phone] Urine blood detectionon 01-16 RBC Ql (U) Negative Negative [facility] Work Phone: Urine clarityon 01-28-2022 Clarity (U) Clear Clear [facility] Work Phone: Urine color determinationon 01-28-2022 Color (U) Yellow Yellow [facility] Work Phone: Urine creatinine measurement (mass/volume)on 01-28-2022 Creatinine (U) [Mass/Vol] 47.80 mg/dL NO RANGE EST. [facility] Work Phone: [phone] Urine glucose detectionon Glucose Ql (U) Normal mg/dl Normal [facility] Work Phone: Urine leukocyte esterase det ection by dipstickon 01-28-2022 Leukocyte esterase Test strip Ql (U) 25 /ul Negative [facility] Work Phone: Urine pHon 01-28-2022 pH (U) 7.0 [pH] 5.0 - 8.0 [facility] Work Phone: [phone] Urine protein measurement (m ass/volume)on 01-28-2022 Protein (U) [Mass/Vol] 14.4 mg/dL 0.0-11.8 [facility] Work Phone: [phone] Urine protein/creatinine mas s ratioon 01-28-2022 Protein/Creatinine (U) [Mass ratio] 301 mg/g CRE 0-200 [facility] Work Phone: Urine specific gravity measu rementon 01-28-2022 Specific gravity (U) [Rel density] 1.010 1.002-1.03 0 [facility] Work Phone: Urobilinogen Auto test strip Ql (U)on 01-28-2022 Urobilinogen Ql (U) Normal mg/dl Normal [facility] Work Phone: Absolute lymphocyte counton 10-28-2021 Lymphocytes Auto (Unsp spec) [#/Vol] 1.42 10*3/uL 0.83-4.51 [facility] Work Phone: Basophil percentageon 2021 Basophils/100 WBC (Bld) 0.9 % 0-1 [facility] Work Phone: Bilirubin [Mass/Vol] 0.50 mg/dL 0.20-1.00 [facility] Work Phone: Comment on above: For patients on eltr ombopag therapy, use of Dimension [place] TBIL is not recommended. Chloride [Moles/Vol] 98 mmol/L 98-107 [facility] Work Phone: Eosinophils/100 WBC (Bld) 2.2 % 0-5 [facility] Work Phone: Glucose [Mass/Vol] 98 mg/dL 74-106 [facility] Work Phone: Neutrophils (Bld) [#/Vol] 3.9 10*3/uL 2.0-7.7 [facility] Work Phone: Neutrophils/100 WBC (Bld) 65.5 % 47-70 [facility] Work Phone: Potassium [Moles/Vol] 3.1 mmol/L 3.5-5.1 [facility] Work Phone: Protein [Mass/Vol] 6.8 g/dL 6.4-8.2 [facility] Work Phone: Sodium [Moles/Vol] 136 mmol/L 136-145 [facility] Work Phone: WBC (Bld) [#/Vol] 5.9 10*3/uL 4.4-11.0 [facility] Work Phone: Blood erythrocytes count (nu mber/volume)on 10-28-2021 RBC (Bld) [#/Vol] 3.60 10*6/uL 4.2-5.4 [facility] Work Phone: [phone] Blood hemoglobin measurement (mass/volume)on 10-28-2021 Hemoglobin (Bld) [Mass/Vol] 11.7 g/dL 12.0-15.0 [facility] Work Phone: Blood lymphocytes/100 leukoc yteson 10-28-2021 Lymphocytes/100 WBC (Bld) 24.2 % 19-41 [facility] Work Phone: Blood monocytes/100 leukocyt eson 10-28-2021 Monocytes/100 WBC (Bld) 7.0 % 0-10 [facility] Work Phone: Blood platelet mean volumeon 10-28-2021 Platelet mean volume (Bld) [Entitic vol] 10.5 fL 6.2-12.0 [facility] Work Phone: [phone] Determination of erythrocyte mean corpuscular volume (MCV)on 10-28-2021 MCV (RBC) [Entitic vol] 98.6 fL 81-99 [facility] Work Phone: Hematocrit Auto (Bld) [Volum e fraction]on 10-28-2021 Hematocrit (Bld) [Volume fraction] 35.5 % 37-47 [facility] Work Phone: [phone] Laboratory - Chemistry and C hemistry - challengeon 10-28-2021 ALP [Catalytic activity/Vol] 64 U/L 45-117 [facility] Work Phone: ALT [Catalytic activity/Vol] 25 U/L 13-56 [facility] Work Phone: [phone] CO2 [Moles/Vol] 32.0 mmol/L 21.0-32.0 [facility] Work Phone: Globulin (S) [Mass/Vol] 3.4 g/dL 2.2-4.2 [facility] Work Phone: Urea nitrogen/Creatinine [Mass ratio] 13.8 mg/mg 10-20 [facility] Work Phone: Laboratory - Hematology and Cell countson 10-28-2021 Erythrocyte distribution width (RBC) [Entitic vol] 44.1 fL 35.1-43.9 [facility] Work Phone: Erythrocyte distribution width (RBC) [Ratio] 12.3 % 11.6-14.6 [facility] Work Phone: Immature granulocytes/100 WBC (Bld) 0.200 % 0.0-0.9 [facility] Work Phone: Comment on above: IG% - Immature Granu locytes (promyelocytes, myelocytes and metamyelocytes) > 1% indicates that a LEFT SHIFT is Present. MCH (RBC) [Entitic mass] 32.5 pg 27.0-32.0 [facility] Work Phone: Nucleated RBC/100 WBC (Bld) [Ratio] 0 % 0-5 [facility] Work Phone: MCHC Auto (RBC) [Mass/Vol]on 10-28-2021 MCHC (RBC) [Mass/Vol] 33.0 g/dL 32-36 [facility] Work Phone: No Panel Informationon 10-28 Estimated GFR (MDRD) Amer 83 mL/min >60 [facility] Work Phone: Comment on above: GFR Calc Estimated GFR (MDRD) Non-Af Amer 68 mL/min >60 [facility] Work Phone: Comment on above: Non- GFR Calc Platelets bldon 10-28-2021 Platelets (Bld) [#/Vol] 354 10*3/uL 150-450 [facility] Work Phone: Serum or plasma albumin leatha urement (mass/volume)on 10-28-2021 Albumin [Mass/Vol] 3.4 g/dL 3.2-5.0 [facility] Work Phone: Serum or plasma albumin/glob ulin mass ratioon 10-28-2021 Albumin/Globulin [Mass ratio] 1.0 {ratio} 0.9-2.4 [facility] Work Phone: Serum or plasma calcium leatha urement (mass/volume)on 10-28-2021 Calcium [Mass/Vol] 8.7 mg/dL 8.5-10.1 [facility] Work Phone: Serum or plasma creatinine m easurement (mass/volume)on 10-28-2021 Creatinine [Mass/Vol] 0.87 mg/dL 0.55-1.02 [facility] Work Phone: Comment on above: The validity of the calculated GFR & GFRAA in patients over 70 years has not been determined. Clinical correlation is essential. Serum or plasma urea nitroge n measurement (mass/volume)on 10-28-2021 Urea nitrogen [Mass/Vol] 12 mg/dL 7-18 [facility] Work Phone: Thin prep Papanicolaou smear with manual screeningon 10-28-2021 Thin prep Papanicolaou smear with manual screening 26 U/L 15-37 [facility] Work Phone: Thin prep Papanicolaou smear with manual screening 6 5-15 [facility] Work Phone: Absolute lymphocyte counton 08-05-2021 Lymphocytes Auto (Unsp spec) [#/Vol] 1.41 10*3/uL 0.83-4.51 [facility] Work Phone: Basophil percentageon 2021 Basophils/100 WBC (Bld) 1.1 % 0-1 [facility] Work Phone: Bilirubin [Mass/Vol] 0.50 mg/dL 0.20-1.00 [facility]: Comment on above: For patients on eltr ombopag therapy, use of Dimension [place] TBIL is not recommended. Chloride [Moles/Vol] 99 mmol/L 98-107 [facility] Work Phone: Eosinophils/100 WBC (Bld) 1.3 % 0-5 [facility] Work Phone: Glucose [Mass/Vol] 84 mg/dL 74-106 [facility] Work Phone: Neutrophils (Bld) [#/Vol] 3.4 10*3/uL 2.0-7.7 [facility] Work Phone: Neutrophils/100 WBC (Bld) 62.0 % 47-70 [facility] Work Phone: Potassium [Moles/Vol] 3.2 mmol/L 3.5-5.1 [facility] Work Phone: Protein [Mass/Vol] 7.0 g/dL 6.4-8.2 [facility] Work Phone: Sodium [Moles/Vol] 139 mmol/L 136-145 [facility] Work Phone: WBC (Bld) [#/Vol] 5.5 10*3/uL 4.4-11.0 [facility] Work Phone: Blood erythrocytes count (nu mber/volume)on 08-05-2021 RBC (Bld) [#/Vol] 3.76 10*6/uL 4.2-5.4 [facility] Work Phone: Blood hemoglobin measurement (mass/volume)on 08-05-2021 Hemoglobin (Bld) [Mass/Vol] 12.3 g/dL 12.0-15.0 [facility] Work Phone: Blood lymphocytes/100 leukoc yteson 08-05-2021 Lymphocytes/100 WBC (Bld) 25.7 % 19-41 [facility] Work Phone: Blood monocytes/100 leukocyt eson 08-05-2021 Monocytes/100 WBC (Bld) 9.7 % 0-10 [facility] Work Phone: Blood platelet mean volumeon 08-05-2021 Platelet mean volume (Bld) [Entitic vol] 11.0 fL 6.2-12.0 [facility] Work Phone: [phone] Determination of erythrocyte mean corpuscular volume (MCV)on 08-05-2021 MCV (RBC) [Entitic vol] 97.6 fL 81-99 [facility] Work Phone: Hematocrit Auto (Bld) [Volum e fraction]on 08-05-2021 Hematocrit (Bld) [Volume fraction] 36.7 % 37-47 [facility] Work Phone: [phone] Laboratory - Chemistry and C hemistry - challengeon 08-05-2021 ALP [Catalytic activity/Vol] 44 U/L 45-117 [facility] Work Phone: [phone] ALT [Catalytic activity/Vol] 33 U/L 13-56 [facility] Work Phone: CO2 [Moles/Vol] 33.0 mmol/L 21.0-32.0 [facility] Work Phone: [phone] Globulin (S) [Mass/Vol] 3.3 g/dL 2.2-4.2 [facility] Work Phone: [phone] Urea nitrogen/Creatinine [Mass ratio] 17.6 mg/mg 10-20 [facility] Work Phone: [phone] Laboratory - Hematology and Cell countson 08-05-2021 Erythrocyte distribution width (RBC) [Entitic vol] 44.2 fL 35.1-43.9 [facility] Work Phone: [phone] Erythrocyte distribution width (RBC) [Ratio] 12.6 % 11.6-14.6 [facility] Work Phone: Immature granulocytes/100 WBC (Bld) 0.200 % 0.0-0.9 [facility] Work Phone: [phone] Comment on above: IG% - Immature Granu locytes (promyelocytes, myelocytes and metamyelocytes) > 1% indicates that a LEFT SHIFT is Present. MCH (RBC) [Entitic mass] 32.7 pg 27.0-32.0 [facility] Work Phone: Nucleated RBC/100 WBC (Bld) [Ratio] 0 % 0-5 [facility] Work Phone: MCHC Auto (RBC) [Mass/Vol]on 08-05-2021 MCHC (RBC) [Mass/Vol] 33.5 g/dL 32-36 [facility] Work Phone: No Panel Informationon 08-05 Estimated GFR (MDRD) Amer 85 mL/min >60 [facility] Work Phone: Comment on above: GFR Calc Estimated GFR (MDRD) Non-Af Amer 70 mL/min >60 [facility] Work Phone: Comment on above: Non- GFR Calc Platelets bldon 08-05-2021 Platelets (Bld) [#/Vol] 324 10*3/uL 150-450 [facility] Work Phone: Serum or plasma albumin leatha urement (mass/volume)on 08-05-2021 Albumin [Mass/Vol] 3.7 g/dL 3.2-5.0 [facility] Work Phone: Serum or plasma albumin/glob ulin mass ratioon 08-05-2021 Albumin/Globulin [Mass ratio] 1.1 {ratio} 0.9-2.4 [facility] Work Phone: Serum or plasma calcium leatha urement (mass/volume)on 08-05-2021 Calcium [Mass/Vol] 10.0 mg/dL 8.5-10.1 [facility] Work Phone: Serum or plasma creatinine m easurement (mass/volume)on 08-05-2021 Creatinine [Mass/Vol] 0.85 mg/dL 0.55-1.02 [facility] Work Phone: Comment on above: The validity of the calculated GFR & GFRAA in patients over 70 years has not been determined. Clinical correlation is essential. Serum or plasma urea nitroge n measurement (mass/volume)on 08-05-2021 Urea nitrogen [Mass/Vol] 15 mg/dL 02-02 [facility] Work Phone: Thin prep Papanicolaou smear with manual screeningon 08-05-2021 Thin prep Papanicolaou smear with manual screening 26 U/L 15-37 [facility] Work Phone: Thin prep Papanicolaou smear with manual screening 7 5-15 [facility] Work Phone: CNPTOUTREACHon 01-18-2020 CNPTOUTREACH Patient Outreach (IN [facility]) YADIRA PEREZ ([id number]) 1950 F Date Time Provider Department 01/18/20 MANUELITO FREGOSO (RN) INTJAMIN During your visit today, we recorded the following information about you: Manuelito Fregoso RN, RN 01/18/2020 11:57 AM Signed COVID-19 POSITIVE PATIENT OUTREACH DAILY CALL Monitoring Call: Day from symptom onset 12/25/19 Lizy, this is the [facility] calling, may I speak to Yadira Perez [...] [facility] patients may call: ? [facility] Nurse internal controls manager at [phone] ? Their PCP Office Caregivers may call: ? [facility] Employee Hotline: [phone] Patient verbalizes understanding of information provided. Denies any further questions at this time. Please visit CDC.gov website for any updated information about Coronavirus. You can also find information on the [facility] website. Additional information can be found on the [facility] and [facility] web sites: https://www.cdc.gov/coronav irus/2019-nCoV/index.html [email or web address] /[email or web address] SIGNATURE: Manuelito Fregoso RN PATIENT NAME: Yadira Perez DATE: January 18, 2020 TIME: 11:48 AM Allergies As of Date: 01/18/2020 Noted Allergy Reaction CODEINE 08/29/2018 2 - Rash Date Reviewed: 01/02/2020 Reviewed by: Jessica Hale LPN - Fully Assessed Reason for Visit: Covid Follow Up [2747] Cmt: Covid Follow up Prescriptions as of [...] 01/02/2020 FLUTICASONE PROPIONATE 50 MCG* Use 1 [place] in each nostril t* Patient not taking: [...] Status:Closed by MANUELITO FREGOSO on 01/18/20 Normal [facility] PROGRESSon 01-18-2020 PROGRESS HNO ID: [id number] Author: Manuelito (Rn) NICOLLE Fregoso Service: ? Author Type: Registered Nurse Type: Progress Notes Filed: 01/18/2020 11:57 AM Note Text: COVID-19 POSITIVE PATIENT OUTREACH DAILY CALL Monitoring Call: Day from symptom onset 12/25/19 Lizy, this is the [facility] calling, may I speak to Yadira Perez [...] [facility] patients may call: ? [facility] Nurse internal controls manager at [phone] ? Their PCP Office Caregivers may call: ? [facility] Employee Hotline: [phone] Patient verbalizes understanding of information provided. Denies any further questions at this time. Please visit CDC.gov website for any updated information about Coronavirus. You can also find information on the [facility] website. Additional information can be found on the [facility] and [facility] web sites: https://www.cdc.gov/coronav irus/2019-nCoV/index.html [email or web address] /[email or web address] SIGNATURE: Manuelito Fregoso RN PATIENT NAME: Yadira Perez DATE: January 18, 2020 TIME: 11:48 AM Normal [facility] CNPTOUTREACHon 01-17-2020 CNPTOUTREACH Patient Outreach ([facility]) YADIRA PEREZ ([id number]) 1950 F Date Time Provider Department 01/17/20 KASEY TURK (BANJO REPAIR PERSON) [facility] During your visit today, we recorded the following information about you: KATHRINE Franklin Tech 01/17/2020 12:29 PM Signed Voice Message Hello, this is the [facility] calling, a member of your household has [...] [facility] patients may call: ? [facility] Nurse internal controls manager at [phone] ? Their PCP Office Caregivers may call: ? [facility] Employee Hotline: [phone] If you are finding it more difficult [...] Assessed Reason for Visit: Covid Follow Up [8526] Cmt: daily follow up Prescriptions as of [...] 01/02/2020 FLUTICASONE PROPIONATE 50 MCG* Use 1 [place] in each nostril t* Patient not taking: [...] Status:Closed by KASEY TURK on 01/17/20 Normal [facility] PROGRESSon 01-17-2020 PROGRESS HNO ID: [id number] Author: Kasey Hopson (Graphic Design Specialist) Kathrine Turk Service: ? Author Type: Security Associate Type: Progress Notes Filed: 01/17/2020 12:29 PM Note Text: Voice Message Hello, this is the [facility] calling, a member of your household has [...] [facility] patients may call: ? [facility] Nurse internal controls manager at [phone] ? Their PCP Office Caregivers may call: ? [facility] Employee Hotline: [phone] If you are finding it more difficult to breathe, or more short of breath when walking or climbing stairs, please go to the nearest ED. Inform the staff that you are COVID positive and you are having more shortness of breath while doing activities. 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 ? Review of [...] Assessed Reason for Visit: Covid Follow Up [0266] Cmt: daily, sx: 12/25/19. Prescriptions as of [...] 01/02/2020 FLUTICASONE PROPIONATE 50 MCG* Use 1 [place] in each nostril t* Patient not taking: [...] Encounter Status:Closed by BK MONTIEL on 01/10/20 [facility] PROGRESSon 01-10-2020 PROGRESS HNO ID: [id number] Author: Bk Mclaughlin) Dinesh Service: ? Author Type: Supervisor Border Department Type: Progress Notes Filed: 01/10/2020 12:00 PM Note Text: Summary: Day #8 of positive test. COVID-19 POSITIVE PATIENT OUTREACH DAILY CALL Monitoring Call: Day 17 from symptom onset 12/25/19 [facility] ? Review of [...] January 10, 2020 TIME: 11:56 AM Normal [facility] CNPTOUTREACHon 01-09-2020 CNPTOUTREACH Patient Outreach (AM [facility]) YADIRA PEREZ ([id number]) 1950 F Date Time Provider Department 01/09/20 [facility]K MONTIEL ([facility]TR[facility] [place] your visit today, we recorded the following information about you: Bk Montiel DTR 01/09/2020 2:10 PM Signed COVID-19 POSITIVE PATIENT OUTREACH DAILY CALL Monitoring Call: Day 16 from symptom onset 12/25/19 [facility] 01/09/20.. Review of patient-entered [...] (None) Disposition: Stable, continue monitoring SIGNATURE: Bk Mnotiel DTR PATIENT NAME: Yadira Perez DATE: January 09, 2020 TIME: 2:04 PM Allergies As of Date: 01/09/2020 Noted Allergy Reaction CODEINE 08/29/2018 2 - Rash Date Reviewed: 01/02/2020 Reviewed by: Jessica Hale LPN - Fully Assessed Reason for Visit: Covid Follow Up [0095] Cmt: daily, sx: 12/25/19. Prescriptions as of [...] 01/02/2020 FLUTICASONE PROPIONATE 50 MCG* Use 1 [place] in each nostril t* Patient not taking: [...] Status:Closed by BK MONTIEL on 01/09/20 Normal [facility] PROGRESSon 01-09-2020 PROGRESS HNO ID: [id number] Author: Bk (Dtr) Dinesh Service: ? Author Type: Supervisor Border Department Type: Progress Notes Filed: 01/09/2020 2:10 PM Note Text: Summary: Day #7 from positive test result. COVID-19 POSITIVE PATIENT OUTREACH DAILY CALL Monitoring Call: Day 16 from symptom onset 12/25/19 Patient noted to have completed [facility] for home monitoring 01/09/20.. Review of [...] January 09, 2020 TIME: 2:04 PM Normal [facility] CNPTOUTREACHon 01-08-2020 CNPTOUTREACH Patient Outreach (AM [facility]) YADIRA PEREZ ([id number]) 1950 F Date Time Provider Department 01/08/20 MALLORY GRIER (BORIS) [facility] [place] your visit today, we recorded the following information about you: Mallory Grier RD 01/08/2020 10:07 AM Signed COVID-19 POSITIVE PATIENT OUTREACH DAILY Monitoring: Day 14 from symptom onset 12/25/19 Pt noted to have completed [facility] for home monitoring . Review of [...] like to speak with a social work team assembly line machine operator to help give you support for any [...] Assessed Reason for Visit: Covid Follow Up [6110] Cmt: day 14 since sx onset 12/25/19 [...] 01/02/2020 FLUTICASONE PROPIONATE 50 MCG* Use 1 [place] in each nostril t* Patient not taking: [...] Encounter Status:Closed by MALLORY GRIER on 01/08/20 [facility] PROGRESSon 01-08-2020 PROGRESS HNO ID: [id number] Author: Mallory Borrego (Boris) Marvel Service: ? Author Type: Registered Dietitian Type: Progress Notes Filed: 01/08/2020 10:07 AM Note Text: COVID-19 POSITIVE PATIENT OUTREACH DAILY Monitoring: Day 14 from symptom onset 12/25/19 Pt noted to have completed [facility] for home monitoring . Review of [...] like to speak with a social work team assembly line machine operator to help give you support for any [...] January 08, 2020 TIME: 10:04 AM Normal [facility] CNPTOUTREACHon 01-07-2020 CNPTOUTREACH Patient Outreach ([facility]) YADIRA PEREZ ([id number]) 1950 F Date Time Provider Department 01/07/20 FIDE PETERSON (RN) [facility] During your visit today, we recorded the following information about you: FIDE PETERSON RN, RN 01/07/2020 12:00 PM Signed COVID-19 POSITIVE PATIENT OUTREACH DAILY CALL Monitoring Call: Day 13 from symptom onset 12/25/19 Lizy, this is the [facility] calling, may I speak to Yadira Perez [...] like to speak with a social work team assembly line machine operator to help give you support for any [...] [facility] patients may call: ? [facility] Nurse internal controls manager at [phone] ? Their PCP Office Caregivers may call: ? [facility] Employee Hotline: [phone] [facility] Employee Boost appointment for 08/02 emotional support: [phone] Patient verbalizes understanding of information provided. Denies any further questions at this time. Please visit CDC.gov website for any updated information about Coronavirus. You can also find information on the [facility] website. Additional information can be found on the CDC and [facility] web sites: https://www.cdc.gov/coronav irus/2019-nCoV/index.html https://[facility].org /coronavirus SIGNATURE: FIDE PETERSON RN PATIENT NAME: Yadira Perez DATE: January 07, 2020 TIME: 11:56 AM Allergies As of Date: 01/07/2020 Noted Allergy Reaction CODEINE 08/29/2018 2 - Rash Date Reviewed: 01/02/2020 Reviewed by: Jessica Hale LPN - Fully Assessed Reason for Visit: Covid Follow Up [1076] Prescriptions as of 01/07/2020 Sig: BENZONATATE 100 [...] 01/02/2020 FLUTICASONE PROPIONATE 50 MCG* Use 1 [place] in each nostril t* Patient not taking: [...] Encounter Status:Closed by FIDE PETERSON on 01/07/20 [facility] PROGRESSon 01-07-2020 PROGRESS HNO ID: [id number] Author: Fide (Nicolle) NICOLLE Peterson Service: ? Author Type: Registered Nurse Type: Progress Notes Filed: 01/07/2020 12:00 PM Note Text: Summary: Covid Positive Daily Call Sx Day 13 COVID-19 POSITIVE PATIENT OUTREACH DAILY CALL Monitoring Call: Day 13 from symptom onset 12/25/19 Lizy, this is the [facility] calling, may I speak to Yadira Perez [...] like to speak with a social work team assembly line machine operator to help give you support for any [...] [facility] patients may call: ? [facility] Nurse internal controls manager at [phone] ? Their PCP Office Caregivers may call: ? [facility] Employee Hotline: [phone] [facility] Employee Boost appointment for 08/02 emotional support: [phone] Patient verbalizes understanding of information provided. Denies any further questions at this time. Please visit CDC.gov website for any updated information about Coronavirus. You can also find information on the [facility] website. Additional information can be found on the [facility] and [facility] web sites: https://www.cdc.gov/coronav irus/2019-nCoV/index.html https://[facility].org /coronavirus SIGNATURE: FIDE PETERSON RN PATIENT NAME: Yadira Perez DATE: January 07, 2020 TIME: 11:56 AM Normal [facility] CNPTOUTREACHon 01-06-2020 CNPTOUTREACH Patient Outreach (AM [facility]) YADIRA PEREZ ([id number]) 1950 F Date Time Provider Department 01/06/20 GINA MARISCAL [facility] During your visit today, we recorded the following information about you: Gina Mariscal RN 01/06/2020 9:10 AM Signed Voice Message Hello, this is the [facility] calling, a member of your household has [...] [facility] patients may call: ? [facility] Nurse internal controls manager at [phone] ? Their PCP Office Caregivers may call: ? [facility] Employee Hotline: [phone] ? [facility] Employee Boost appointment for 08/02 emotional support: [phone] If you are finding it more difficult to breathe, or more short of breath when walking or climbing stairs, please go to the nearest ED. Inform the staff that you are COVID positive and you are having more shortness of breath while doing activities. Disposition: Unable to reach, Left Voicemail - Continue Monitoring SIGNATURE: Gina Mariscal RN PATIENT NAME: Yadira Perez DATE: January 06, 2020 TIME: 9:07 [...] 01/02/2020 FLUTICASONE PROPIONATE 50 MCG* Use 1 [place] in each nostril t* Patient not taking: [...] Status:Closed by GINA MARISCAL on 01/06/20 Normal [facility] PROGRESSon 01-06-2020 PROGRESS HNO ID: [id number] Author: Gina Mariscal Service: ? Author Type: Registered Nurse Type: Progress Notes Filed: 01/06/2020 9:10 AM Note Text: Voice Message Hello, this is the [facility] calling, a member of your household has [...] [facility] patients may call: ? [facility] Nurse internal controls manager at [phone] ? Their PCP Office Caregivers may call: ? [facility] Employee Hotline: [phone] ? [facility] Employee Boost appointment for 08/02 emotional support: [phone] If you are finding it more difficult [...] January 06, 2020 TIME: 9:07 AM Normal [facility] CNPTOUTREACHon 01-05-2020 CNPTOUTREACH Patient Outreach (AM [facility]) ANARUTHIEYADIRA J ([id number]) 1950 F Date Time Provider Department 01/05/20 ALICIA GLOVER) RASHMI During your visit today, we recorded the following information about you: Alicia BORIS Glover 01/05/2020 2:48 PM Signed COVID-19 POSITIVE PATIENT OUTREACH DAILY CALL Monitoring Call: Day 11 from symptom onset 12/25/19 Lizy, this is the [facility] calling, may I speak to Yadira Perez [...] like to speak with a social work team assembly line machine operator to help give you support for any [...] [facility] patients may call: ? [facility] Nurse internal controls manager at [phone] ? Their PCP Office Caregivers may call: ? [facility] Employee Hotline: [phone] [facility] Employee Boost appointment for 08/02 emotional support: [phone] Patient verbalizes understanding of information provided. Denies any further questions at this time. Please visit CDC.gov website for any updated information about Coronavirus. You can also find information on the [facility] website. Additional information can be found on the [facility] and [facility] web sites: https://www.cdc.gov/coronav irus/2019-nCoV/index.html https://[facility].org /coronavirus SIGNATURE: Alicia Glover RD PATIENT NAME: Yadira Perez DATE: January 05, 2020 TIME: 2:41 PM Allergies As of Date: 01/05/2020 Noted Allergy Reaction CODEINE 08/29/2018 2 - Rash Date Reviewed: 01/02/2020 Reviewed by: Jessica Hale LPN - Fully Assessed Reason for Visit: Covid Follow Up [7153] Cmt: Day 11 Prescriptions as of 01/05/2020 [...] 01/02/2020 FLUTICASONE PROPIONATE 50 MCG* Use 1 [place] in each nostril t* Patient not taking: [...] Status:Closed by ALICIA GLOVER on 01/05/20 Normal [facility] PROGRESSon 01-05-2020 PROGRESS HNO ID: [id number] Author: Alicia Schumacher) Ariella Service: ? Author Type: Registered Dietitian Type: Progress Notes Filed: 01/05/2020 2:48 PM Note Text: COVID-19 POSITIVE PATIENT OUTREACH DAILY CALL Monitoring Call: Day 11 from symptom onset 12/25/19 Lizy, this is the [facility] calling, may I speak to Yadira Perez [...] like to speak with a social work team assembly line machine operator to help give you support for any [...] [facility] patients may call: ? [facility] Nurse internal controls manager at [phone] ? Their PCP Office Caregivers may call: ? [facility] Employee Hotline: [phone] [facility] Employee Boost appointment for 08/02 emotional support: [phone] Patient verbalizes understanding of information provided. Denies any further questions at this time. Please visit CDC.gov website for any updated information about Coronavirus. You can also find information on the [facility] website. Additional information can be found on the CDC and [facility] web sites: https://www.cdc.gov/coronav irus/2019-nCoV/index.html https://[facility].org /coronavirus SIGNATURE: Alicia Glover RD PATIENT NAME: Yadira Perez DATE: January 05, 2020 TIME: 2:41 PM Normal [facility] Kanu 01-04-2020 CNPTOUTREACH Patient Outreach (AM [facility]) YADIRA PEREZ ([id number]) 1950 F Date Time Provider Department 01/04/20 VINOD STEIN (RN) [facility] During your visit today, we recorded the following information about you: Vinod Stein RN, RN 01/04/2020 12:43 PM Signed COVID-19 POSITIVE PATIENT OUTREACH INTAKE Reason for call: Notification of Positive Results and Intake Lizy, this is the [facility] calling, may I speak to Yadira Perez [...] 01/03/2020 Symptom start date: 12/25/19 Confirm PCP: Audelia Mace DO High Risk Category: Flu-like symptoms Age [...] questionnaire will come to you through your [employer] account. May I sign you up for [...] like to speak with a social work team assembly line machine operator to help give you support for any [...] [facility] patients may call: ? [facility] Nurse internal controls manager at [phone] ? Their PCP Office Patient verbalizes understanding of information provided. Denies any further questions at this time. Please visit CDC.gov website for any updated information about Coronavirus. You can also find information on the [facility] website. Additional information can be found on the CDC and [facility] web sites: https://www.cdc.gov/coronav irus/2019-nCoV/index.html https://[facility].org /coronavirus SIGNATURE: Vinod Stein RN PATIENT NAME: Yadira Perez DATE: January 04, 2020 TIME: 12:27 PM Allergies As of Date: 01/04/2020 Noted Allergy Reaction CODEINE 08/29/2018 2 - Rash Date Reviewed: 01/02/2020 Reviewed by: Jessica Hale LPN - Fully Assessed Reason for Visit: Covid Follow Up [8294] Cmt: Intake Prescriptions as of 01/04/2020 Sig: [...] 01/02/2020 FLUTICASONE PROPIONATE 50 MCG* Use 1 [place] in each nostril t* Patient not taking: [...] Encounter Status:Closed by VINOD STEIN on 01/04/20 Normal [facility] PROGRESSon 01-04-2020 PROGRESS HNO ID: [id number] Author: Vinod (Rn) NICOLLE Stein Service: ? Author Type: Registered Nurse Type: Progress Notes Filed: 01/04/2020 12:43 PM Note Text: COVID-19 POSITIVE PATIENT OUTREACH INTAKE Reason for call: Notification of Positive Results and Intake Lizy, this is the [facility] calling, may I speak to Yadira Perez [...] 01/03/2020 Symptom start date: 12/25/19 Confirm PCP: Audelia Mace DO High Risk Category: Flu-like symptoms Age [...] questionnaire will come to you through your [employer] account. May I sign you up for [...] like to speak with a social work team assembly line machine operator to help give you support for any [...] [facility] patients may call: ? [facility] Nurse internal controls manager at [phone] ? Their PCP Office Patient verbalizes understanding of information provided. Denies any further questions at this time. Please visit CDC.gov website for any updated information about Coronavirus. You can also find information on the [facility] website. Additional information can be found on the CDC and [facility] web sites: https://www.cdc.gov/coronav irus/2019-nCoV/index.html https://[facility].org /coronavirus SIGNATURE: Vinod Stein RN PATIENT NAME: Yadira Perez DATE: January 04, 2020 TIME: 12:27 PM [facility]COVHLD) YADIRA PEREZ ([id number]) 1950 F Date Time Provider Department 01/03/20 ARGELIA MÉNDEZ ([facility]) JUVENAL During your visit today, we recorded [...] Fully Assessed Reason for Visit: Covid-19 Hotline [8412] Primary Visit Diagnosis:Suspected COVID-19 virus infection [Z20.828] Order(s):2019 CORONAVIRUS [SQCOVID] Order #: [id number] FUTURE Prescriptions as of 01/03/2020 Sig: BENZONATATE [...] 01/02/2020 FLUTICASONE PROPIONATE 50 MCG* Use 1 [place] in each nostril t* Patient not taking: [...] Status:Closed by ARGELIA MÉNDEZ CNP on 01/03/20 [facility] CNPTOUTREARogelio 01-03-2020 [facility] Patient Outreach (AM [facility]) YADIRA PEREZ ([id number]) 1950 F Date Time Provider Department 01/03/20 NAGA GUALLPA (NICOLLE) [facility] During your visit today, we recorded the following information about you: Naga Guallpa RN, RN 01/03/2020 10:54 AM Signed [id number] [facility] Voice Message - none left see [...] Assessed Reason for Visit: Covid Follow Up [7836] Prescriptions as of 01/03/2020 Sig: BENZONATATE 100 [...] 01/02/2020 FLUTICASONE PROPIONATE 50 MCG* Use 1 [place] in each nostril t* Patient not taking: [...] Status:Closed by NAGA GUALLPA on 01/03/20 Normal [facility] Coronavirus 2019on 0 COVID 19 Result DIRECTOR SAFETY COUNCIL Positive Critically abnormal Negative for COVID19 (SARS CoV2) by PCR. [facility] Comment on above: Result Comment: This test was developed and its performance characteristics determined by [facility] [place]. This test has been authorized by FDA [...] 2019. Performed By: #### C OVID #### [facility] [employer] [address] [address] COVID 19 Source DIRECTOR SAFETY COUNCIL Nasopharyngeal Swab Normal [facility] Comment on above: Result Comment: No c all per procedure. 01/03/202224 Performed By: #### C OVID #### [facility] [employer] [address] [address] PROGRESSon 01-03-2020 PROGRESS HNO ID: [id number] Author: Naga (Nicolle) NICOLLE Guallpa Service: ? Author Type: Registered Nurse Type: Progress Notes Filed: 01/03/2020 10:54 AM Note Text: [id number] [facility] Voice Message - none left see below Call day 1 Attempted to contact patient multiple times over several hours and phone just rang busy. Will attempt to contact again tomorrow and intake needs to be done. SIGNATURE: Naga Guallpa RN PATIENT NAME: Yadira Perez DATE: January 03, 2020 TIME: 8:36 AM Normal [facility] CNOVon 01-02-2020 CNOV Office Visit (UCWSTR ) YADIRA PEREZ ([id number]) 1950 F Date Time Provider Department 01/02/20 3:45 PM CHREELLE RAVI (IVANNA) UCW[facility] During your visit today, we recorded [...] the symptom(s). *If the patient is in [place] and in a high risk category and has at least 2 symptoms of : fever, cough, shortness of breath, myalgia, diarrhea, anosmia, loss of taste, and sore throat then the patient may qualify for an ambulatory [facility] COVID-19 test. Route the chart to [...] expected course of illness Cherelle Ravi APRN.CNP Yadira Perez is an 69 year old [...] Other Visit Diagnosis:Suspected COVID-19 virus infection [Z20.828] Order(s):[facility] [employer] COVID-19 HOME MONITORING [2244832] Order #: [id number] benzonatate (TESSALON PERLE) 100 mg capsuleTake 1-2 [...] 01/02/2020 FLUTICASONE PROPIONATE 50 MCG* Use 1 [place] in each nostril t* Patient not taking: [...] Discussed expected course of illness Cherelle Ravi APRN.MARKETING PROGRAMS SPECIALIST Separate yourself from other people in your [...] Encounter Status:Closed by CHERELLE RAVI on 01/02/20 Normal [facility] PROGRESSon 01-02-2020 PROGRESS HNO ID: [id number] Author: Cherelle (Ivanna) Trav Service: ? Author Type: Nurse Practitioner Type: [...] the symptom(s). *If the patient is in [place] and in a high risk category and has at least 2 symptoms of : fever, cough, shortness of breath, myalgia, diarrhea, anosmia, loss of taste, and sore throat then the patient may qualify for an ambulatory [facility] COVID-19 test. Route the chart to [...] analgesia. - Discussed expected course of illness SHAHBAZ Maynardbob Perez is an 69 year old who appears to have COVID-19 infection and is high risk or with concerning symptoms, recommend COVID-19 testing. This patient encounter involved the screening or treatment of novel coronavirus infection (COVID-19). - Red flags discussed for need for in person care - All questions answered SIGNATURE: Cherelle Ravi APRN.CNP DATE: January 02, 2020 Normal [facility] CNOVon 08-10-2019 CNOV Office Visit (UCWSTR ) YADIRA PEREZ ([id number]) 1950 F Date Time Provider Department 08/10/19 12:00 PM MALLORY DOW [facility] During your visit today, we recorded the following information about you: Temperature Pulse Respiration Blood pressure 98.4 degrees 57/minute 16/minute 112/76 Weight 87.7 kg Bree Bird Ma 08/10/2019 2:13 PM Signed 2.5 solution duoneb treatment given per provider's orders. Prior to treatment O2 sat is 96%. Treatment completed. O2 sat is 95%. Tolerated well. Bree Dow APRN.CNP 08/10/2019 2:21 PM Signed [facility] PATIENT [...] improve nasal congestion. Most drugstores in the [place] carry pseudoephedrine behind the counter, so [...] to anyone within 6 feet. Mallory Dow APRN.MARKETING PROGRAMS SPECIALIST 08/10/2019 4:51 PM Signed Subjective HPI Pt presents with c/o sore throat, cough and chest congestion x 10 days. Was evaluated at an Urgent Care in [place]. Dx viral URI, rx albuterol MDI and [...] 150 mg by mouth once every month. xyxjucy-qntvhthhf-hvhxkiu D3 500 mg(1,250mg) -200 unit per tablet [...] (FLONASE) 50 mcg/actuation nasal spray Use 1 [place] in each nostril twice daily. Rinse mouth [...] Rash Date Reviewed: 08/10/2019 Reviewed by: Imelda Haumesser Ma - Fully Assessed Reason for Visit: URI [115] Cmt: x 2 weeks Reason For Visit History Recorded Primary Visit Diagnosis:Cough [R05] Other Visit Diagnosis:Bronchitis [J40] Order(s):XR CHEST 2V FRONTAL/LAT [6019326] Order #: [id number] FUTURE [] ipratropium-albuterol 3 mL nebulizer solution [...] twice* FLUTICASONE PROPIONATE 50 MCG* Use 1 [place] in each nostril t* Patient not taking: [...] feet. Visit Notes: >> Bree Bird Ma Susu Aug 10, 2019 2:12 PM Status: Signed [...] Status:Closed by MALLORY DOW CNP on 08/10/19 [facility] PROGRESSon 08-10-2019 PROGRESS HNO ID: [id number] Author: Mallory Dow Service: ? Author Type: Nurse Practitioner Type: Progress Notes Filed: 08/10/2019 4:51 PM Note Text: Subjective HPI Pt presents with c/o sore throat, cough and chest congestion x 10 days. Was evaluated at an Urgent Care in [place]. Dx viral URI, rx albuterol MDI and [...] 150 mg by mouth once every month. rwunwzz-sxxvljlpu-omiqogi D3 500 mg(1,250mg) -200 unit per tablet [...] (FLONASE) 50 mcg/actuation nasal spray Use 1 [place] in each nostril twice daily. Rinse mouth [...] in agreement with plan of care. Mallory Dow, IVANNA Normal [facility] PROGRESS HNO ID: [id number] Author: Christine Fay (Rt) Kathrine Wray Service: ? Author Type: Security Associate Type: Progress Notes Filed: 08/10/2019 1:44 PM [...] PERIPHERAL IV DATA: Not applicable SIGNED BY: RT Marcio August 10, 2019 1:35 PM Normal [facility] XR CHEST 2V FRONTAL/LATon XR CHEST 2V [...] atelectasis. Infiltrate less likely. Clinical follow-up suggested. [employer] Transcribe Date/Time: Aug 10 2019 1:59P Dictated by : MILAN CARRIZALES MD This examination was interpreted and the report reviewed and electronically signed by: MILAN CARRIZALES MD on Aug 10 2019 2:01PM EST [id number] Normal [facility] Culture, urine Bacteria identified Cx Nom (U) Mixed Gram Pos & Gram Neg Org [facility] Work Phone: Vital Signs Date Time Vital Sign Value Performing Clinician Facility 01-22-2025 14:04-0400 Body temperature 97.8 [degF] Dr. Audelia Mace DO Work Phone: [facility] 01-22-2025 14:04-0400 Diastolic blood pressure 88 mm[Hg] Dr. Audelia Mace DO Work Phone: [facility] 01-22-2025 14:04-0400 Heart rate 49 /min Dr. Audelia Mace DO Work Phone: [facility] 01-22-2025 14:04-0400 Respiratory rate 17 /min Dr. Audelia Mace DO Work Phone: [facility] 01-22-2025 14:04-0400 SaO2% (BldA) [Mass fraction] 97 % Dr. Audelia Mace DO Work Phone: [facility] 01-22-2025 14:04-0400 Systolic blood pressure 150 mm[Hg] Dr. Audelia Mace DO Work Phone: [facility] 12-21-2024 13:37-0400 Body temperature 98 [degF] Dr. Audelia Mace DO Work Phone: [facility] 12-21-2024 13:37-0400 Diastolic blood pressure 64 mm[Hg] Dr. Audelia Mace DO Work Phone: [facility] 12-21-2024 13:37-0400 Heart rate 60 /min Dr. Audelia Mace DO Work Phone: [facility] 12-21-2024 13:37-0400 Respiratory rate 17 /min Dr. Audelia Mace DO Work Phone: [facility] 12-21-2024 13:37-0400 SaO2% (BldA) [Mass fraction] 96 % Dr. Audelia Mace DO Work Phone: [facility] 12-21-2024 13:37-0400 Systolic blood pressure 132 mm[Hg] Dr. Audelia Mace DO Work Phone: [facility] 11-28-2024 10:36-0400 Body temperature 97.7 [degF] Dr. Audelia Mace DO Work Phone: [facility] 11-28-2024 10:36-0400 Diastolic blood pressure 75 mm[Hg] Dr. Audelia Mace DO Work Phone: [facility] 11-28-2024 10:36-0400 Heart rate 57 /min Dr. Audelia Mace DO Work Phone: [facility] 11-28-2024 10:36-0400 Respiratory rate 16 /min Dr. Audelia Mace DO Work Phone: [facility] 11-28-2024 10:36-0400 SaO2% (BldA) [Mass fraction] 96 % Dr. Audelia Mace DO Work Phone: [facility] 11-28-2024 10:36-0400 Systolic blood pressure 157 mm[Hg] Dr. Audelia Mace DO Work Phone: [facility] 11-21-2024 07:54-0400 Body mass index (BMI) [Ratio] 33.7 kg/m2 Dr. Audelia Mace DO Work Phone: [facility] 11-21-2024 07:54-0400 Body temperature 97.1 [degF] Dr. Audelia Mace DO Work Phone: [facility] 11-21-2024 07:54-0400 Body weight 94.[address] Audelia Mace DO Work Phone: [facility] 11-21-2024 07:54-0400 Diastolic blood pressure 74 mm[Hg] Dr. Audelia Mace DO Work Phone: [facility] 11-21-2024 07:54-0400 Heart rate 63 /min Dr. Audelia Mace DO Work Phone: [facility] 11-21-2024 07:54-0400 Respiratory rate 20 /min Dr. Audelia Mace DO Work Phone: [facility] 11-21-2024 07:54-0400 SaO2% (BldA) [Mass fraction] 96 % Dr. Audelia Mace DO Work Phone: [facility] 11-21-2024 07:54-0400 Systolic blood pressure 144 mm[Hg] Dr. Audelia Mace DO Work Phone: [facility] 11-20-2024 13:23-0400 Body temperature 97.8 [degF] Dr. Audelia Mace DO Work Phone: [facility] 11-20-2024 13:23-0400 Diastolic blood pressure 81 mm[Hg] Dr. Audelia Mace DO Work Phone: [facility] 11-20-2024 13:23-0400 Heart rate 66 /min Dr. Audelia Mace DO Work Phone: [facility] 11-20-2024 13:23-0400 Respiratory rate 17 /min Dr. Audelia Mace DO Work Phone: [facility] 11-20-2024 13:23-0400 SaO2% (BldA) [Mass fraction] 98 % Dr. Audelia Mace DO Work Phone: [facility] 11-20-2024 13:23-0400 Systolic blood pressure 171 mm[Hg] Dr. Audelia Mace DO Work Phone: [facility] 10-19-2024 13:54-0400 Body temperature 97.8 [degF] Dr. Audelia Mace DO Work Phone: [facility] 10-19-2024 13:54-0400 Diastolic blood pressure 86 mm[Hg] Dr. Audelia Mace DO Work Phone: [facility] 10-19-2024 13:54-0400 Heart rate 59 /min Dr. Audelia Mace DO Work Phone: [facility] 10-19-2024 13:54-0400 Respiratory rate 17 /min Dr. Audelia Mace DO Work Phone: [facility] 10-19-2024 13:54-0400 SaO2% (BldA) [Mass fraction] 98 % Dr. Audelia Mace DO Work Phone: [facility] 10-19-2024 13:54-0400 Systolic blood pressure 128 mm[Hg] Dr. Audelia Mace DO Work Phone: [facility] 09-19-2024 13:27-0500 Body temperature 98 [degF] Dr. Audelia Mace DO Work Phone: [facility] 09-19-2024 13:27-0500 Diastolic blood pressure 80 mm[Hg] Dr. Audelia Mace DO Work Phone: [facility] 09-19-2024 13:27-0500 Heart rate 57 /min Dr. Audelia Mace DO Work Phone: [facility] 09-19-2024 13:27-0500 Respiratory rate 17 /min Dr. Audelia Mace DO Work Phone: [facility] 09-19-2024 13:27-0500 SaO2% (BldA) [Mass fraction] 96 % Dr. Audelia Mace DO Work Phone: [facility] 09-19-2024 13:27-0500 Systolic blood pressure 118 mm[Hg] Dr. Audelia Mace DO Work Phone: [facility] 07-31-2024 10:35-0500 Body temperature 98.2 [degF] Dr. Audelia Mace DO Work Phone: [facility] 07-31-2024 10:35-0500 Diastolic blood pressure 86 mm[Hg] Dr. Audelia Mace DO Work Phone: [facility] 07-31-2024 10:35-0500 Heart rate 59 /min Dr. Audelia Mace DO Work Phone: [facility] 07-31-2024 10:35-0500 Respiratory rate 16 /min Dr. Audelia Mace DO Work Phone: [facility] 07-31-2024 10:35-0500 SaO2% (BldA) [Mass fraction] 97 % Dr. Audelia Mace DO Work Phone: [facility] 07-31-2024 10:35-0500 Systolic blood pressure 138 mm[Hg] Dr. Audelia Mace DO Work Phone: [facility] 07-27-2024 10:50-0500 Body temperature 97.7 [degF] Dr. Audelia Mace DO Work Phone: [facility] 07-27-2024 10:50-0500 Diastolic blood pressure 71 mm[Hg] Dr. Audelia Mace DO Work Phone: [facility] 07-27-2024 10:50-0500 Heart rate 54 /min Dr. Audelia Mace DO Work Phone: [facility] 07-27-2024 10:50-0500 Respiratory rate 16 /min Dr. Audelia Mace DO Work Phone: [facility] 07-27-2024 10:50-0500 SaO2% (BldA) [Mass fraction] 94 % Dr. Audelia Mace DO Work Phone: [facility] 07-27-2024 10:50-0500 Systolic blood pressure 131 mm[Hg] Dr. Audelia Mace DO Work Phone: [facility] 07-27-2024 07:50-0500 Body height 167.[address] Audelia Mace DO Work Phone: [facility] 07-27-2024 07:50-0500 Body mass index (BMI) [Ratio] 32.7 kg/m2 Dr. Audelia Mace DO Work Phone: [facility] 07-27-2024 07:50-0500 Body weight [address] Audelia Mace DO Work Phone: [facility] 06-28-2024 09:43-0500 Body mass index (BMI) [Ratio] 31.3 kg/m2 Dr. Audelia Mace DO Work Phone: [facility] 06-28-2024 09:43-0500 Body weight 90.[address] Audelia Mace DO Work Phone: [facility] 06-26-2024 13:14-0500 Body mass index (BMI) [Ratio] 33.1 kg/m2 Dr. Audelia Mace DO Work Phone: [facility] 06-26-2024 13:14-0500 Body temperature 97.8 [degF] Dr. Audelia Mace DO Work Phone: [facility] 06-26-2024 13:14-0500 Body weight 93.[address] Audelia Mace DO Work Phone: [facility] 06-26-2024 13:14-0500 Diastolic blood pressure 80 mm[Hg] Dr. Audelia Mace DO Work Phone: [facility] 06-26-2024 13:14-0500 Heart rate 68 /min Dr. Audelia Mace DO Work Phone: [facility] 06-26-2024 13:14-0500 Respiratory rate 17 /min Dr. Audelia Mace DO Work Phone: [facility] 06-26-2024 13:14-0500 SaO2% (BldA) [Mass fraction] 95 % Dr. Audelia Mace DO Work Phone: [facility] 06-26-2024 13:14-0500 Systolic blood pressure 138 mm[Hg] Dr. Audelia Mace DO Work Phone: [facility] 11-04-2023 08:03-0400 Body height 167.[address] Audelia Mace Work Phone: [facility] 11-04-2023 08:03-0400 Body mass index (BMI) [Ratio] 31.9 kg/m2 Dr. Audelia Mace Work Phone: [facility] 11-04-2023 08:03-0400 Body temperature 97.8 [degF] Dr. Audelia Mace Work Phone: [facility] 11-04-2023 08:03-0400 Body weight 89.[address] Audelia Mace Work Phone: [facility] 11-04-2023 08:03-0400 Diastolic blood pressure 75 mm[Hg] Dr. Audelia Mace Work Phone: [facility] 11-04-2023 08:03-0400 Heart rate 85 /min Dr. Audelia Mace Work Phone: [facility] 11-04-2023 08:03-0400 Respiratory rate 20 /min Dr. Audelia Mace Work Phone: [facility] 11-04-2023 08:03-0400 SaO2% (BldA) [Mass fraction] 93 % Dr. Audelia Mace Work Phone: [facility] 11-04-2023 08:03-0400 Systolic blood pressure 154 mm[Hg] Dr. Audelia Mace Work Phone: [facility] 10-25-2023 08:49-0400 Body mass index (BMI) [Ratio] 32.5 kg/m2 Dr. Audelia Mace Work Phone: [facility] 10-25-2023 08:49-0400 Body temperature 97.7 [degF] Dr. Audelia Mace Work Phone: [facility] 10-25-2023 08:49-0400 Body weight 91.[address] Audelia Mace Work Phone: [facility] 10-25-2023 08:49-0400 Diastolic blood pressure 86 mm[Hg] Dr. Audelia Mace Work Phone: [facility] 10-25-2023 08:49-0400 Heart rate 68 /min Dr. Audelia Mace Work Phone: [facility] 10-25-2023 08:49-0400 Respiratory rate 16 /min Dr. Audelia Mace Work Phone: [facility] 10-25-2023 08:49-0400 SaO2% (BldA) [Mass fraction] 98 % Dr. Audelia Mace Work Phone: [facility] 10-25-2023 08:49-0400 Systolic blood pressure 146 mm[Hg] Dr. Audelia Mace Work Phone: [facility] 09-21-2023 11:35-0500 Body height 167.[address] Audelia Mace Work Phone: [facility] 09-21-2023 11:35-0500 Body mass index (BMI) [Ratio] 32.2 kg/m2 Dr. Audelia Mace Work Phone: [facility] 09-21-2023 11:35-0500 Body temperature 97.8 [degF] Dr. Audelia Mace Work Phone: [facility] 09-21-2023 11:35-0500 Body weight 90.[address] Audelia Mace Work Phone: [facility] 09-21-2023 11:35-0500 Diastolic blood pressure 76 mm[Hg] Dr. Audelia Mace Work Phone: [facility] 09-21-2023 11:35-0500 Heart rate 62 /min Dr. Audelia Mace Work Phone: [facility] 09-21-2023 11:35-0500 Respiratory rate 17 /min Dr. Audelia Mace Work Phone: [facility] 09-21-2023 11:35-0500 SaO2% (BldA) [Mass fraction] 97 % Dr. Audelia Mace Work Phone: [facility] 09-21-2023 11:35-0500 Systolic blood pressure 148 mm[Hg] Dr. Audelia Mace Work Phone: [facility] 08-10-2023 12:57-0500 Body mass index (BMI) [Ratio] 32.2 kg/m2 Dr. Audelia Mace Work Phone: [facility] 08-10-2023 12:57-0500 Body temperature 98 [degF] Dr. Audelia Mace Work Phone: [facility] 08-10-2023 12:57-0500 Body weight 90.[address] Audelia Mace Work Phone: [facility] 08-10-2023 12:57-0500 Diastolic blood pressure 70 mm[Hg] Dr. Audelia Mace Work Phone: [facility] 08-10-2023 12:57-0500 Heart rate 69 /min Dr. Audelia Mace Work Phone: [facility] 08-10-2023 12:57-0500 Respiratory rate 17 /min Dr. Audelia Mace Work Phone: [facility] 08-10-2023 12:57-0500 SaO2% (BldA) [Mass fraction] 96 % Dr. Audelia Mace Work Phone: [facility] 08-10-2023 12:57-0500 Systolic blood pressure 153 mm[Hg] Dr. Audelia Mace Work Phone: [facility] 07-29-2023 11:10-0500 Body temperature 97.3 [degF] Dr. Audelia Mace Work Phone: [facility] 07-29-2023 11:10-0500 Body weight 90.[address] Audelia Mace Work Phone: [facility] 07-29-2023 11:10-0500 Diastolic blood pressure 78 mm[Hg] Dr. Audelia Mace Work Phone: [facility] 07-29-2023 11:10-0500 Heart rate 62 /min Dr. Audelia Mace Work Phone: [facility] 07-29-2023 11:10-0500 Respiratory rate 14 /min Dr. Audelia Mace Work Phone: [facility] 07-29-2023 11:10-0500 SaO2% (BldA) [Mass fraction] 99 % Dr. Audelia Mace Work Phone: [facility] 07-29-2023 11:10-0500 Systolic blood pressure 135 mm[Hg] Dr. Audelia Mace Work Phone: [facility] 07-22-2023 08:08-0500 Body mass index (BMI) [Ratio] 28.7 kg/m2 Dr. Audelia Mace Work Phone: [facility] 07-22-2023 08:08-0500 Body temperature 97.5 [degF] Dr. Audelia Mace Work Phone: [facility] 07-22-2023 08:08-0500 Body weight 80.[address] Audelia Mace Work Phone: [facility] 07-22-2023 08:08-0500 Diastolic blood pressure 69 mm[Hg] Dr. Audelia Mace Work Phone: [facility] 07-22-2023 08:08-0500 Heart rate 59 /min Dr. Audelia Mace Work Phone: [facility] 07-22-2023 08:08-0500 Respiratory rate 20 /min Dr. Audelia Mace Work Phone: [facility] 07-22-2023 08:08-0500 SaO2% (BldA) [Mass fraction] 99 % Dr. Audelia Maec Work Phone: [facility] 07-22-2023 08:08-0500 Systolic blood pressure 119 mm[Hg] Dr. Audelia Mace Work Phone: [facility] 06-28-2023 11:09-0500 Body mass index (BMI) [Ratio] 30.7 kg/m2 Dr. Audelia Mace Work Phone: [facility] 06-28-2023 11:09-0500 Body temperature 98.4 [degF] Dr. Audelia Mace Work Phone: [facility] 06-28-2023 11:09-0500 Body weight 86.[address] Audelia Mace Work Phone: [facility] 06-28-2023 11:09-0500 Diastolic blood pressure 93 mm[Hg] Dr. Audelia Mace Work Phone: [facility] 06-28-2023 11:09-0500 Heart rate 84 /min Dr. Audelia Mace Work Phone: [facility] 06-28-2023 11:09-0500 Respiratory rate 16 /min Dr. Audelia Mace Work Phone: [facility] 06-28-2023 11:09-0500 SaO2% (BldA) [Mass fraction] 95 % Dr. Audelia Mace Work Phone: [facility] 06-28-2023 11:09-0500 Systolic blood pressure 164 mm[Hg] Dr. Audelia Mace Work Phone: [facility] 06-24-2023 11:11-0500 Body mass index (BMI) [Ratio] 32.1 kg/m2 Dr. Audelia Mace Work Phone: [facility] 06-24-2023 11:11-0500 Body temperature 97.7 [degF] Dr. Audelia Mace Work Phone: [facility] 06-24-2023 11:11-0500 Body weight 90.[address] Audelia Mace Work Phone: [facility] 06-24-2023 11:11-0500 Diastolic blood pressure 85 mm[Hg] Dr. Audelia Mace Work Phone: [facility] 06-24-2023 11:11-0500 Heart rate 60 /min Dr. Audelia Mace Work Phone: [facility] 06-24-2023 11:11-0500 Respiratory rate 16 /min Dr. Audelia Mace Work Phone: [facility] 06-24-2023 11:11-0500 SaO2% (BldA) [Mass fraction] 99 % Dr. Audelia Mace Work Phone: [facility] 06-24-2023 11:11-0500 Systolic blood pressure 140 mm[Hg] Dr. Audelia Mace Work Phone: [facility] 05-24-2023 11:12-0500 Body height 167.[address] Audelia Mace Work Phone: [facility] 05-24-2023 11:12-0500 Body mass index (BMI) [Ratio] 31.8 kg/m2 Dr. Audelia Mace Work Phone: [facility] 05-24-2023 11:12-0500 Body temperature 97.8 [degF] Dr. Audelia Mace Work Phone: [facility] 05-24-2023 11:12-0500 Body weight 89.[address] Audelia Mace Work Phone: [facility] 05-24-2023 11:12-0500 Diastolic blood pressure 80 mm[Hg] Dr. Audelia Mace Work Phone: [facility] 05-24-2023 11:12-0500 Heart rate 58 /min Dr. Audelia Mace Work Phone: [facility] 05-24-2023 11:12-0500 Respiratory rate 16 /min Dr. Audelia Mace Work Phone: [facility] 05-24-2023 11:12-0500 SaO2% (BldA) [Mass fraction] 98 % Dr. Audelia Mace Work Phone: [facility] 05-24-2023 11:12-0500 Systolic blood pressure 140 mm[Hg] Dr. Audelia Mace Work Phone: [facility] 2023 05:44-0400 Body mass index (BMI) [Ratio] 31.8 kg/m2 Dr. Audelia Mace Work Phone: [facility] 2023 05:44-0400 Body temperature 97.8 [degF] Dr. Audelia Mace Work Phone: [facility] 2023 05:44-0400 Body weight 89.[address] Audelia Mace Work Phone: [facility] 2023 05:44-0400 Diastolic blood pressure 74 mm[Hg] Dr. Audelia Mace Work Phone: [facility] 2023 05:44-0400 Heart rate 70 /min Dr. Audelia Mace Work Phone: [facility] 2023 05:44-0400 Respiratory rate 17 /min Dr. Audelia Mace Work Phone: [facility] 2023 05:44-0400 SaO2% (BldA) [Mass fraction] 95 % Dr. Audelia Mace Work Phone: [facility] 2023 05:44-0400 Systolic blood pressure 138 mm[Hg] Dr. Audelia Mace Work Phone: [facility] 04-22-2023 13:16-0400 Body mass index (BMI) [Ratio] 32.3 kg/m2 Dr. Audelia Mace Work Phone: [facility] 04-22-2023 13:16-0400 Body temperature 97.8 [degF] Dr. Audelia Mace Work Phone: [facility] 04-22-2023 13:16-0400 Body weight 90.[address] Audelia Mace Work Phone: [facility] 04-22-2023 13:16-0400 Diastolic blood pressure 70 mm[Hg] Dr. Audelia Mace Work Phone: [facility] 04-22-2023 13:16-0400 Heart rate 65 /min Dr. Audelia Mace Work Phone: [facility] 04-22-2023 13:16-0400 Respiratory rate 17 /min Dr. Audelia Mace Work Phone: [facility] 04-22-2023 13:16-0400 SaO2% (BldA) [Mass fraction] 95 % Dr. Audelia Mace Work Phone: [facility] 04-22-2023 13:16-0400 Systolic blood pressure 148 mm[Hg] Dr. Audeila Mace Work Phone: [facility] 03-16-2023 21:18-0400 Diastolic blood pressure 66 mm[Hg] Dr. Audelia Mace Work Phone: [facility] 03-16-2023 21:18-0400 Heart rate 82 /min Dr. Audelia Mace Work Phone: [facility] 03-16-2023 21:18-0400 Systolic blood pressure 117 mm[Hg] Dr. Audelia Mace Work Phone: [facility] 03-16-2023 13:05-0400 Body height 167.[address] Audelia Mace Work Phone: [facility] 03-16-2023 13:05-0400 Body mass index (BMI) [Ratio] 31.9 kg/m2 Dr. Audelia Mace Work Phone: [facility] 03-16-2023 13:05-0400 Body temperature 98.2 [degF] Dr. Audelia Mace Work Phone: [facility] 03-16-2023 13:05-0400 Body weight 89.[address] Audelia Mace Work Phone: [facility] 03-16-2023 13:05-0400 Respiratory rate 17 /min Dr. Audelia Mace Work Phone: [facility] 03-16-2023 13:05-0400 SaO2% (BldA) [Mass fraction] 95 % Dr. Audelia Mace Work Phone: [facility] 03-10-2023 14:19-0400 Body temperature 97.3 [degF] Dr. Audelia Mace Work Phone: [facility] 03-10-2023 14:19-0400 Diastolic blood pressure 65 mm[Hg] Dr. Audelia Mace Work Phone: [facility] 03-10-2023 14:19-0400 Heart rate 66 /min Dr. Audelia Mace Work Phone: [facility] 03-10-2023 14:19-0400 Respiratory rate 16 /min Dr. Audelia Mace Work Phone: [facility] 03-10-2023 14:19-0400 SaO2% (BldA) [Mass fraction] 94 % Dr. Audelia Mace Work Phone: [facility] 03-10-2023 14:19-0400 Systolic blood pressure 135 mm[Hg] Dr. Audelia Mace Work Phone: [facility] 03-05-2023 05:57-0400 Body mass index (BMI) [Ratio] 33.4 kg/m2 Dr. Audelia Mace Work Phone: [facility] 03-05-2023 05:57-0400 Body weight 94.[address] Audelia Mace Work Phone: [facility] 03-04-2023 13:56-0400 Body height 167.[address] Audelia Mace Work Phone: [facility] 02-25-2023 21:46-0400 Inhaled oxygen concentration 21 % Dr. Audelia Mace Work Phone: [facility] 02-25-2023 21:46-0400 Inhaled oxygen flow rate 0 L/min Dr. Audelia Mace Work Phone: [facility] 02-22-2023 03:59-0400 Diastolic blood pressure 68 mm[Hg] Dr. Audelia Mace Work Phone: [facility] 02-22-2023 03:59-0400 Heart rate 66 /min Dr. Audelia Mace Work Phone: [facility] 02-22-2023 03:59-0400 Respiratory rate 16 /min Dr. Audelia Mace Work Phone: [facility] 02-22-2023 03:59-0400 SaO2% (BldA) [Mass fraction] 97 % Dr. Audelia Mace Work Phone: [facility] 02-22-2023 03:59-0400 Systolic blood pressure 147 mm[Hg] Dr. Audelia Mace Work Phone: [facility] 02-21-2023 22:58-0400 Body height 167.[address] Audelia Mace Work Phone: [facility] 02-21-2023 22:58-0400 Body mass index (BMI) [Ratio] 34.6 kg/m2 Dr. Audelia Mace Work Phone: [facility] 02-21-2023 22:58-0400 Body temperature 97.6 [degF] Dr. Audelia Mace Work Phone: [facility] 02-21-2023 22:58-0400 Body weight 97.[address] Audelia Mace Work Phone: [facility] 02-09-2023 10:44-0400 Body temperature 97.6 [degF] Dr. Audelia Mace Work Phone: [facility] 02-09-2023 10:44-0400 Diastolic blood pressure 82 mm[Hg] Dr. Audelia Mace Work Phone: [facility] 02-09-2023 10:44-0400 Heart rate 60 /min Dr. Audelia Mace Work Phone: [facility] 02-09-2023 10:44-0400 Respiratory rate 17 /min Dr. Audelia Mace Work Phone: [facility] 02-09-2023 10:44-0400 SaO2% (BldA) [Mass fraction] 99 % Dr. Audelia Mace Work Phone: [facility] 02-09-2023 10:44-0400 Systolic blood pressure 132 mm[Hg] Dr. Audelia Mace Work Phone: [facility] 01-05-2023 09:21-0400 Body mass index (BMI) [Ratio] 31.9 kg/m2 Dr. Audelia Mace Work Phone: [facility] 01-05-2023 09:21-0400 Diastolic blood pressure 86 mm[Hg] Dr. Audelia Mace Work Phone: [facility] 01-05-2023 09:21-0400 Systolic blood pressure 128 mm[Hg] Dr. Audelia Mace Work Phone: [facility] 01-05-2023 09:05-0400 Body height 167.[address] Audelia Mace Work Phone: [facility] 01-05-2023 09:05-0400 Body temperature 97.8 [degF] Dr. Audelia Mace Work Phone: [facility] 01-05-2023 09:05-0400 Body weight 89.[address] Audelia Mace Work Phone: [facility] 01-05-2023 09:05-0400 Heart rate 67 /min Dr. Audelia Mace Work Phone: [facility] 01-05-2023 09:05-0400 Respiratory rate 16 /min Dr. Audelia Mace Work Phone: [facility] 01-05-2023 09:05-0400 SaO2% (BldA) [Mass fraction] 97 % Dr. Audelia Mace Work Phone: [facility] 12-02-2022 09:48-0400 Body mass index (BMI) [Ratio] 31 kg/m2 Dr. Audelia Mace Work Phone: [facility] 12-02-2022 09:48-0400 Diastolic blood pressure 80 mm[Hg] Dr. Audelia Mace Work Phone: [facility] 12-02-2022 09:48-0400 Systolic blood pressure 126 mm[Hg] Dr. Audelia Mace Work Phone: [facility] 12-02-2022 09:37-0400 Body temperature 97.8 [degF] Dr. Audelia Mace Work Phone: [facility] 12-02-2022 09:37-0400 Body weight 87.[address] Audelia Mace Work Phone: [facility] 12-02-2022 09:37-0400 Heart rate 66 /min Dr. Audelia Mace Work Phone: [facility] 12-02-2022 09:37-0400 Respiratory rate 17 /min Dr. Audelia Mace Work Phone: [facility] 12-02-2022 09:37-0400 SaO2% (BldA) [Mass fraction] 98 % Dr. Audelia Mace Work Phone: [facility] 11-09-2022 15:32-0400 Body height 167.[address] Audelia Mace Work Phone: [facility] 11-09-2022 15:32-0400 Body mass index (BMI) [Ratio] 31.5 kg/m2 Dr. Audelia Mace Work Phone: [facility] 11-09-2022 15:32-0400 Body temperature 97.8 [degF] Dr. Audelia Mace Work Phone: [facility] 11-09-2022 15:32-0400 Body weight 88.[address] Audelia Mace Work Phone: [facility] 11-09-2022 15:32-0400 Diastolic blood pressure 80 mm[Hg] Dr. Audelia Mace Work Phone: [facility] 11-09-2022 15:32-0400 Heart rate 59 /min Dr. Audelia Mace Work Phone: [facility] 11-09-2022 15:32-0400 Respiratory rate 17 /min Dr. Audelia Mace Work Phone: [facility] 11-09-2022 15:32-0400 SaO2% (BldA) [Mass fraction] 97 % Dr. Audelia Mace Work Phone: [facility] 11-09-2022 15:32-0400 Systolic blood pressure 150 mm[Hg] Dr. Audelia Mace Work Phone: [facility] 10-29-2022 08:39-0400 Body height 167.[address] Audelia Mace Work Phone: [facility] 10-29-2022 08:39-0400 Body mass index (BMI) [Ratio] 30.8 kg/m2 Dr. Audelia Mace Work Phone: [facility] 10-29-2022 08:39-0400 Body temperature 95.9 [degF] Dr. Audelia Mace Work Phone: [facility] 10-29-2022 08:39-0400 Body weight 86.[address] Audelia Mace Work Phone: [facility] 10-29-2022 08:39-0400 Diastolic blood pressure 73 mm[Hg] Dr. Audelia Mace Work Phone: [facility] 10-29-2022 08:39-0400 Heart rate 64 /min Dr. Audelia Mace Work Phone: [facility] 10-29-2022 08:39-0400 Inhaled oxygen flow rate 94 L/min Dr. Audelia Mace Work Phone: [facility] 10-29-2022 08:39-0400 Respiratory rate 18 /min Dr. Audelia Mace Work Phone: [facility] 10-29-2022 08:39-0400 SaO2% (BldA) [Mass fraction] 94 % Dr. Audelia Mace Work Phone: [facility] 10-29-2022 08:39-0400 Systolic blood pressure 126 mm[Hg] Dr. Audelia Mace Work Phone: [facility] 10-10-2022 13:14-0400 Heart rate 63 /min Dr. Audelia Mace Work Phone: [facility] 10-10-2022 13:14-0400 Respiratory rate 16 /min Dr. Audelai Mace Work Phone: [facility] 10-10-2022 13:02-0400 Body temperature 98.2 [degF] Dr. Audelia Mace Work Phone: [facility] 10-10-2022 13:02-0400 Diastolic blood pressure 63 mm[Hg] Dr. Audelia Mace Work Phone: [facility] 10-10-2022 13:02-0400 SaO2% (BldA) [Mass fraction] 2 % Dr. Audelia [facility] [facility] 10[facility]2022 13:02-0400 Systolic blood pressure 119 mm[Hg] Dr. Audelia Mace Work Phone: [facility] 10-10-2022 12:33-0400 Inhaled oxygen flow rate 2 L/min Dr. Audelia Mace Work Phone: [facility] 10-10-2022 11:38-0400 Body mass index (BMI) [Ratio] 30.7 kg/m2 Dr. Audelia Mace Work Phone: [facility] 10-08-2022 15:48-0400 Body height 167.[address] Audelia Mace Work Phone: [facility] 10-08-2022 15:48-0400 Body weight 86.[address] Audelia Mace Work Phone: [facility] 10-08-2022 15:35-0400 Body temperature 97.9 [degF] Dr. Audelia Mace Work Phone: [facility] 10-08-2022 15:35-0400 Diastolic blood pressure 72 mm[Hg] Dr. Audelia Mace Work Phone: [facility] 10-08-2022 15:35-0400 Heart rate 78 /min Dr. Audelia Mace Work Phone: [facility] 10-08-2022 15:35-0400 Inhaled oxygen flow rate 2 L/min Dr. Audelia Mace Work Phone: [facility] 10-08-2022 15:35-0400 Respiratory rate 16 /min Dr. Audelia Mace Work Phone: [facility] 10-08-2022 15:35-0400 SaO2% (BldA) [Mass fraction] 96 % Dr. Audelia Mace Work Phone: [facility] 10-08-2022 15:35-0400 Systolic blood pressure 144 mm[Hg] Dr. Audelia Mace Work Phone: [facility] 10-08-2022 12:30-0400 Body height 167.[address] Audelia Mace Work Phone: [facility] 10-08-2022 12:30-0400 Body mass index (BMI) [Ratio] 30.3 kg/m2 Dr. Audelia Mace Work Phone: [facility] 10-08-2022 12:30-0400 Body weight 85.[address] Audelia Mace Work Phone: [facility] 10-06-2022 11:20-0400 Body mass index (BMI) [Ratio] 30.9 kg/m2 Dr. Audelia Mace Work Phone: [facility] 10-06-2022 11:20-0400 Body temperature 97 [degF] Dr. Audelia Mace Work Phone: [facility] 10-06-2022 11:20-0400 Body weight 87.[address] Audelia Mace Work Phone: [facility] 10-06-2022 11:20-0400 Diastolic blood pressure 70 mm[Hg] Dr. Audelia Mace Work Phone: [facility] 10-06-2022 11:20-0400 Heart rate 60 /min Dr. Audelia Mace Work Phone: [facility] 10-06-2022 11:20-0400 Respiratory rate 16 /min Dr. Audelia Mace Work Phone: [facility] 10-06-2022 11:20-0400 SaO2% (BldA) [Mass fraction] 96 % Dr. Audelia Mace Work Phone: [facility] 10-06-2022 11:20-0400 Systolic blood pressure 116 mm[Hg] Dr. Audelia Mace Work Phone: [facility] 07-08-2022 14:17-0500 Diastolic blood pressure 72 mm[Hg] Dr. Audelia Mace Work Phone: [facility] 07-08-2022 14:17-0500 Systolic blood pressure 104 mm[Hg] Dr. Audelia Mace Work Phone: [facility] 07-08-2022 11:07-0500 Body height 167.[address] Audelia Mace Work Phone: [facility] 07-08-2022 11:07-0500 Body mass index (BMI) [Ratio] 30.9 kg/m2 Dr. Audelia Mace Work Phone: [facility] 07-08-2022 11:07-0500 Body temperature 98.4 [degF] Dr. Audelia Mace Work Phone: [facility] 07-08-2022 11:07-0500 Body weight 86.[address] Audelia Mace Work Phone: [facility] 07-08-2022 11:07-0500 Heart rate 57 /min Dr. Audelia Mace Work Phone: [facility] 07-08-2022 11:07-0500 Respiratory rate 16 /min Dr. Audelia Mace Work Phone: [facility] 07-08-2022 11:07-0500 SaO2% (BldA) [Mass fraction] 99 % Dr. Audelia Mace Work Phone: [facility] 04-30-2022 14:30-0400 Body temperature 98.6 [degF] Dr. Audelia Mace Work Phone: [facility] 04-30-2022 14:30-0400 Diastolic blood pressure 77 mm[Hg] Dr. Audelia Mace Work Phone: [facility] 04-30-2022 14:30-0400 Heart rate 63 /min Dr. Audelia Mace Work Phone: [facility] 04-30-2022 14:30-0400 Respiratory rate 16 /min Dr. Audelia Mace Work Phone: [facility] 04-30-2022 14:30-0400 SaO2% (BldA) [Mass fraction] 97 % Dr. Audelia Mace Work Phone: [facility] 04-30-2022 14:30-0400 Systolic blood pressure 139 mm[Hg] Dr. Audelia Mace Work Phone: [facility] 04-30-2022 13:49-0400 Body mass index (BMI) [Ratio] 30.3 kg/m2 Dr. Audelia Mace Work Phone: [facility] 2022 14:27-0400 Body height 167.[address] Audelia Mace Work Phone: [facility] Work Phone: 2022 14:27-0400 Body weight 85.[address] Audelia Mace Work Phone: [facility] 2022 13:27-0400 Body temperature 98.3 [degF] Dr. Audelia Mace Work Phone: [facility] Work Phone: 2022 13:27-0400 Diastolic blood pressure 75 mm[Hg] Dr. Audelia Mace Work Phone: [facility] Work Phone: 2022 13:27-0400 Heart rate 55 /min Dr. Audelia Mace Work Phone: [facility] Work Phone: 2022 13:27-0400 Respiratory rate 16 /min Dr. Audelia Mace Work Phone: [facility] Work Phone: 2022 13:27-0400 SaO2% (BldA) [Mass fraction] 100 % Dr. Audelia Mace Work Phone: [facility] Work Phone: 2022 13:27-0400 Systolic blood pressure 138 mm[Hg] Dr. Audelia Mace Work Phone: [facility] Work Phone: 2022 11:07-0400 Body height 165.[address] Audelia Mace Work Phone: [facility] Work Phone: 2022 11:07-0400 Body mass index (BMI) [Ratio] 30.7 kg/m2 Dr. Audelia Mace Work Phone: [facility] Work Phone: 2022 11:07-0400 Body weight 83.[address] Audelia Mace Work Phone: [facility] Work Phone: 04-07-2022 09:56-0400 Body temperature 97.5 [degF] Dr. Audelia Mace Work Phone: [facility] Work Phone: 04-07-2022 09:56-0400 Body weight 85.[address] Audelia Mace Work Phone: [facility] Work Phone: 04-07-2022 09:56-0400 Diastolic blood pressure 63 mm[Hg] Dr. Audelia Mace Work Phone: [facility] Work Phone: 04-07-2022 09:56-0400 Heart rate 56 /min Dr. Audelia Mace Work Phone: [facility] Work Phone: 04-07-2022 09:56-0400 Respiratory rate 18 /min Dr. Audelia Mace Work Phone: [facility] Work Phone: 04-07-2022 09:56-0400 SaO2% (BldA) [Mass fraction] 98 % Dr. Audelia Mace Work Phone: [facility] Work Phone: 04-07-2022 09:56-0400 Systolic blood pressure 121 mm[Hg] Dr. Audelia Mace Work Phone: [facility] Work Phone: Encounters Encounter Date Encounter Type Care Provider Facility Start: 02-16-2025 ambulatory Audelia Mace Facility: [facility] Start: 02-13-2025 End: 02-13-2025 ambulatory LINK ROTHMAN MD Facility:[facility] Start: 02-13-2025 End: 02-13-2025 Patient encounter procedure LINK ROTHMAN MD [facility] Start: 01-26-2025 End: 01-26-2025 Patient encounter procedure Narciso Valderrama DO -[facility] Work Phone: Start: 01-26-2025 End: 01-26-[address] Audelia Mace DO Work Phone: [facility] Start: 01-22-2025 End: 01-22-[address] Hoang Ugarte MD -[facility] Work Phone: Start: 01-22-2025 End: 01-22-[address] Audelia Mace DO Work Phone: [facility] Start: 12-29-2024 End: 12-29-[address] Audelia Mace DO Work Phone: [facility] Work Phone: Start: 12-29-2024 End: 12-29-[address] Gerri Tejeda MD -Laboratory [place] Work Phone: Start: 12-29-2024 End: 12-29-2024 ambulatory Audelia Batesman Facility:[facility] Start: 12-26-2024 End: 12-26-[address] Audelia Mace DO Work Phone: [facility] Work Phone: Start: 12-26-2024 End: 12-26-[address] Audelia Mace DO -Radiology [facility] Work Phone: Start: 12-26-2024 End: 12-26-2024 ambulatory Audelia Batesman Facility:[facility] Start: 12-21-2024 End: 12-21-[address] Hoang Ugarte MD -[facility] Work Phone: Start: 12-21-2024 End: 12-21-[address] Audelia Mace DO Work Phone: [facility] Work Phone: Start: 12-06-2024 End: 12-06-[address] Audelia Mace DO Work Phone: [facility] Work Phone: Start: 12-06-2024 End: 12-06-2024 Patient encounter procedure NADIRA Kellogg -Sleep Lab Work Phone: Start: 12-06-2024 End: 12-06-2024 ambulatory Audelia AndersRodri Facility:[facility] Start: 11-28-2024 End: 11-28-[address] Audelia Mace DO Work Phone: [facility] Work Phone: Start: 11-28-2024 End: 11-28-[address] Gerri Tejeda MD -Laboratory [place] Work Phone: Start: 11-28-2024 End: 11-28-[address] Hoang Ugarte MD -[facility] Work Phone: Start: 11-28-2024 End: 11-28-[address] Audelia Mace DO Work Phone: [facility] Work Phone: Start: 11-28-2024 End: 11-28-2024 ambulatory [facility] Facility:[facility] Start: 11-21-2024 End: 11-21-2024 Patient encounter procedure NADIRA Kellogg -[facility] Work Phone: Start: 11-21-2024 End: 11-21-2024 ambulatory [facility] Facility:[facility] Start: 11-20-2024 End: 11-20-[address] Hoang Ugarte MD -[facility] Work Phone: Start: 11-20-2024 End: 11-20-2024 ambulatory Hoang Ugarte Facility:[facility] Start: 11-14-2024 End: 11-14-[address] Audelia Mace DO Work Phone: [facility] Work Phone: Start: 11-14-2024 End: 11-14-[address] Audelia Mace DO -[facility] [place] Work Phone: Start: 11-14-2024 End: 11-14-2024 ambulatory Audelia Rodri Facility:[facility] Start: 10-19-2024 End: 10-19-[address] Hoang Ugarte MD -[facility] Work Phone: Start: 10-19-2024 End: 10-19-2024 ambulatory Hoang Ugarte Facility:[facility] Start: 09-27-2024 End: 09-27-[address] Audelia Mace DO Work Phone: [facility] Work Phone: Start: 09-27-2024 End: 09-27-[address] Gerri Tejeda MD -Laboratory, [place] Work Phone: Start: 09-27-2024 End: 09-27-2024 Patient encounter procedure Narciso Jannie DEVINE -[facility] Work Phone: Start: 09-27-2024 End: 09-27-2024 ambulatory [facility] Facility:[facility] Start: 09-27-2024 End: 09-27-2024 ambulatory [facility] Facility:[facility] Start: 09-20-2024 End: 09-20-2024 ambulatory Derik Pratt Facility:[facility] Start: 09-20-2024 End: 09-20-[address] Derik Pratt DO -Occupational Therapy Work Phone: Start: 09-19-2024 End: 09-19-[address] Hoang Ugarte MD -[facility] Work Phone: Start: 09-19-2024 End: 09-19-2024 [facility] Start: 08-09-2024 End: 08-09-[address] Audelia Mace DO -Outpatient Bone Densitometry Work Phone: Start: 08-09-2024 End: 08-09-2024 ambulatory [facility] Facility:[facility] Start: 07-31-2024 End: 07-31-[address] [facility] Work Phone: Start: 07-31-2024 End: 07-31-[address] Hoang Ugarte MD -[facility] Work Phone: Start: 07-31-2024 End: 07-31-2024 ambulatory Hoang Ugarte Facility:[facility] Start: 07-31-2024 End: 07-31-2024 ambulatory Hoang Ugarte Facility:[facility] Start: 07-27-2024 ambulatory [facility] Facility: [facility] Start: 07-27-2024 Non-patient / Non-visit Dr. Naga Bates MD -[facility] Start: 07-27-2024 End: 07-27-2024 Admission to same day surgery center Dr. Naga Bates MD -Endoscopy Work Phone: Start: 07-27-2024 End: 07-27-2024 ambulatory Naga Bates Facility:[facility] Start: 07-13-2024 End: 07-13-2024 ambulatory Hoang Ugarte Facility:[facility] Start: 07-13-2024 End: 07-13-[address] Hoang Ugarte MD -Physical Therapy Work Phone: Start: 06-28-2024 Non-patient / Non-visit Dr. Audelia Mace DO Work Phone: -[facility] Work Phone: Start: 06-28-2024 ambulatory [facility] Start: 06-27-2024 End: 06-27-[address] Audelia Mace DO -Laboratory, [facility] Start: 06-26-2024 End: 06-26-[address] Hoang Ugarte MD -[facility] Work Phone: Start: 06-26-2024 End: 06-27-2024 ambulatory Audelia Mace Facility:[facility] Start: 06-23-2024 End: 06-23-[address] Audelia Mace DO -Outpatient Breast Imaging Work Phone: Start: 06-23-2024 End: 06-23-2024 ambulatory Audelia Mace Facility:[facility] Start: 06-21-2024 End: 06-21-[address] Gerri Tejeda MD -Laboratory, [place] Work Phone: Start: 06-21-2024 End: 06-21-2024 ambulatory Gerri Tejeda Facility:[facility] Start: 05-26-2024 End: 05-26-2024 ambulatory Derik Pratt Facility:[facility] Start: 05-18-2024 End: 05-18-2024 ambulatory Audelia Rodri Facility:[facility] Start: 05-15-2024 End: 05-15-2024 ambulatory Hoang Ugarte Facility:[facility] Start: 04-26-2024 End: 04-26-2024 ambulatory Derik Pratt Facility:[facility] Start: 04-19-2024 End: 04-19-2024 ambulatory Audelia Mace Facility:[facility] Start: 04-13-2024 End: 04-13-2024 ambulatory Hoang Ugarte Facility:[facility] Start: 04-12-2024 End: 04-12-2024 ambulatory Derik Pratt Facility:[facility] Start: 04-09-2024 End: 04-09-2024 Emergency department patient visit Audelia Rodri Facility:[facility] Start: 04-04-2024 End: 04-04-2024 ambulatory Hoang Ugarte Facility:[facility] Start: 03-27-2024 End: 03-27-2024 ambulatory Audelia Mace Facility:[facility] Start: 03-13-2024 End: 03-13-2024 ambulatory Hoang Ugarte Facility:[facility] Start: 02-10-2024 End: 02-10-2024 ambulatory Hoang Meza Facility:[facility] Start: 11-11-2023 End: 11-11-[address] Audelia Mace Work Phone: [facility] Work Phone: Start: 11-11-2023 End: 11-11-[address] Audelia Mace Work Phone: [facility]-Sleep Lab Work Phone: Start: 11-04-2023 End: 11-04-[address] Audelia Mace Work Phone: [facility] Work Phone: Start: 11-04-2023 End: 11-04-[address] Audelia Mace Work Phone: [facility] Work Phone: Start: 11-04-2023 End: 11-04-[address] Audelia Mace Work Phone: [facility]-Physical Therapy Work Phone: Start: 10-25-2023 End: 10-25-[address] Audelia Mace Work Phone: [facility] Neurology Work Phone: Start: 10-14-[address] [facility] Start: 10-08-2023 End: 10-08-[address] Audelia Mace Work Phone: [facility] Work Phone: Start: 10-08-2023 End: 10-08-[address] Audelia Mace Work Phone: [facility] Work Phone: Start: 09-21-2023 End: 09-21-[address] Audelia Mace Work Phone: [facility] Neurology Work Phone: Start: 08-10-2023 End: 08-10-[address] Audelia Mace Work Phone: [facility] Neurology Work Phone: Start: 07-29-2023 End: 07-29-[address] Audelia Mace Work Phone: [facility] Neurology Work Phone: Start: 07-22-2023 End: 07-22-[address] [facility] Work Phone: Start: 07-21-2023 End: 07-21-[address] Audelia Mace Work Phone: [facility] Work Phone: Start: 06-28-2023 End: 06-28-[address] Audelia Mace Work Phone: [facility] Work Phone: Start: 06-24-2023 End: 06-24-[address] Audelia Mace Work Phone: [facility] Neu[facility] Work Phone: Start: 06-14-[address] Audeila Mace Work Phone: [facility]-Physical Therapy Work Phone: Start: 06-09-2023 End: 06-09-[address] Audelia Mace Work Phone: [facility] Work Phone: Start: 06-09-2023 End: 06-09-[address] Audelia Mace Work Phone: [facility]-Outpatient Breast Imaging Work Phone: Start: 05-24-2023 End: 05-24-[address] Audelia Mace Work Phone: [facility] Neu[facility] Work Phone: Start: 2023 End: [address] Audelia Mace Work Phone: [facility]-Pulmonary Medicine [facility] Work Phone: Start: 04-22-2023 End: 04-22-[address] Audelia Mace Work Phone: [facility] Neu[facility] Work Phone: Start: 04-12-2023 End: 04-12-[address] Audelia Mace Work Phone: [facility] Work Phone: Start: 04-12-2023 End: 04-12-[address] Audelia Mace Work Phone: [facility]-Sleep Lab Work Phone: Start: 03-16-2023 End: 03-16-[address] Audelia Mace Work Phone: [facility] Neurology Work Phone: Start: 03-09-2023 Non-patient / Non-visit Dr. Audelia Mace Work Phone: [facility] Work Phone: Start: 03-08-2023 Non-patient / Non-visit Dr. Audelia Mace Work Phone: [facility] Work Phone: Start: 03-04-2023 Non-patient / Non-visit Dr. Audelia Mace Work Phone: [facility] Work Phone: Start: 03-02-2023 Non-patient / Non-visit Dr. Audelia Mace Work Phone: [facility] Work Phone: Start: 03-01-2023 Non-patient / Non-visit Dr. Audelia Mace Work Phone: [facility] Work Phone: Start: 02-26-2023 Non-patient / Non-visit Dr. Audelia Mace Work Phone: [facility] Work Phone: Start: 02-25-2023 Non-patient / Non-visit Dr. Audelia Mace Work Phone: [facility] Work Phone: Start: 02-24-2023 End: 03-10-2023 Evaluation and management of inpatient Dr. Audelia Mace Work Phone: [facility]-Rehab Unit Work Phone: Start: 02-21-2023 End: 02-22-2023 Emergency department patient visit Dr. Audelia Mace Work Phone: [facility]-Emergency Department Work Phone: Start: 02-09-2023 End: 02-09-[address] Audelia Mace Work Phone: [facility] Neurology Work Phone: Start: 01-21-2023 End: 01-21-[address] Audelia Mace Work Phone: [facility] Work Phone: Start: 01-21-2023 End: 01-21-[address] Auedlia Mace Work Phone: [facility] Work Phone: Start: 01-07-2023 End: 01-07-[address] Audelia Mace Work Phone: [facility] Work Phone: Start: 01-07-2023 End: 01-07-[address] Audelia Mace Work Phone: [facility] Start: 01-05-2023 End: 01-05-[address] Audelia Mace Work Phone: [facility] Neurology Start: 12-02-2022 End: 12-02-[address] Audelia Mace Work Phone: [facility] Neurology Start: 11-30-2022 End: 11-30-[address] Audelia Mace Work Phone: [facility] Work Phone: Start: 11-30-2022 End: 11-30-[address] [facility] Start: 11-09-2022 End: 11-09-[address] Audelia Mace Work Phone: [facility] Neurology Start: 11-04-[address] Audelia Mace Work Phone: [facility]-Physical Therapy Start: 10-29-2022 End: 10-29-[address] [facility] Start: 10-27-2022 End: 10-27-[address] Audelia Mace Work Phone: [facility] Work Phone: Start: 10-27-2022 End: 10-27-[address] Audelia Mace Work Phone: [facility] Start: 10-10-2022 Non-patient / Non-visit Dr. Audelia Mace Work Phone: [facility] Inpatient Physicians Start: 10-09-2022 Non-patient / Non-visit Dr. Audelia Mace Work Phone: [facility] Phys[facility] Start: 10-08-2022 Non-patient / Non-visit Dr. Audelia Mace Work Phone: [facility] Start: 10-08-2022 End: 10-10-2022 Evaluation and management of inpatient Dr. Audelia Mace Work Phone: [facility]-Progressive Care Unit Start: 10-06-2022 End: 10-06-[address] Audelia Mace Work Phone: [facility] Start: 10-01-[address] [facility] Start: 09-24-[address] Audelia Mace Work Phone: [facility]-Physical Therapy Start: 09-18-2022 End: 09-18-[address] Audelia Mace Work Phone: [facility] Work Phone: Start: 09-18-2022 End: 09-18-[address] Audelia Mace Work Phone: [facility] Start: 08-16-2022 End: 08-16-2022 Non-patient / Non-visit Dr. Audelia Mace Work Phone: [facility] Group Start: 08-04-[address] [facility] Start: 07-28-2022 End: 07-28-[address] Audelia Mace Work Phone: [facility] Work Phone: Start: 07-28-2022 End: 07-28-[address] Audelia Mace Work Phone: [facility] Start: 07-24-2022 End: 07-24-[address] Audelia Mace Work Phone: [facility] Work Phone: Start: 07-24-2022 End: 07-24-[address] Audelia Mace Work Phone: [facility] Start: 07-24-2022 End: 07-24-[address] Audelia Mace Work Phone: [facility] Work Phone: Start: 07-24-2022 End: 07-24-[address] Audelia Mace Work Phone: [facility] Start: 07-18-[address] Audelia stewart Work Phone: [facility]-Cardiovascular Services Start: 07-08-2022 End: 07-08-[address] Audelia Mace Work Phone: [facility] Neurology Start: 06-09-[address] Audelia Mace Work Phone: [facility]-Physical Therapy Start: 06-08-2022 End: 06-08-[address] Audelia Mace Work Phone: [facility] Start: 06-02-2022 End: 06-02-[address] Audelia Mace Work Phone: [facility] Work Phone: Start: 06-02-2022 End: 06-02-[address] Audelia Mace Work Phone: [facility]-Outpatient Breast Imaging Start: 05-22-2022 End: 05-22-[address] Audelia Mace Work Phone: [facility] Work Phone: Start: 05-22-2022 End: 05-22-[address] Audelia Mace Work Phone: [facility]-MRI - [facility] Start: 05-21-[address] Audelia Mace Work Phone: [facility]-Physical Therapy Start: 05-19-2022 End: 05-19-[address] Audelia Mace Work Phone: [facility] Work Phone: Start: 05-19-2022 End: 05-19-[address] Audelia Mace Work Phone: [facility]-Speech Therapy Start: 05-07-2022 End: 05-07-[address] Audelia Mace Work Phone: [facility] Work Phone: Start: 05-07-2022 End: 05-07-[address] Audelia Mace Work Phone: [facility] Start: 05-07-[address] [facility] Start: 04-30-2022 Non-patient / Non-visit Dr. Audelia Mace Work Phone: [facility] Inpatient Physicians Start: 2022 Non-patient / Non-visit Dr. Audelia Mace Work Phone: [facility] Start: 2022 Non-patient / Non-visit Dr. Audelia Mace Work Phone: [facility] Inpatient [facility]icians Start: 2022 End: 04-30-2022 Evaluation and management of inpatient Dr. Audelia Mace Work Phone: [facility] Start: 2022 End: 2022 Emergency department patient visit Dr. Audelia Mace Work Phone: [facility] Start: 04-15-2022 End: 04-15-[address] Audelia Mace Work Phone: [facility] Start: 04-07-2022 End: 04-07-[address] Audelia Mace Work Phone: [facility] Vascular Surgery Start: 03-31-2022 End: 03-31-2022 ambulatory [facility] Work Phone: Start: 03-31-2022 End: 03-31-2022 [facility] Start: 03-26-2022 End: 03-26-2022 ambulatory [facility] Work Phone: Start: 03-26-2022 End: 03-26-2022 [facility] Start: 02-02-2022 End: 02-02-2022 [facility] Start: 01-28-2022 End: 01-28-2022 Patient encounter procedure [facility] Start: 10-28-2021 End: 10-28-2021 Patient encounter procedure [facility] Start: 10-08-2021 End: 10-08-2021 [facility] Start: 08-05-2021 End: 08-05-2021 [facility] Procedures Date Procedure Procedure Detail Performing Clinician Start: 12-26-[address] Audelia stewart DO Work Phone: Start: 11-14-2024 Acetylcholine recept or blocking antibody measurement Dr. Audelia Mace DO Work Phone: Comment on above: Negative: 0 - 25 Bor derline: 26 - 30 Positive: >30Performed at: [address] [id number] Director: Ava Jason MD, Phone: [phone] Start: 11-14-2024 Acetylcholine recept or measurement Dr. Audelia Mace DO Work Phone: Comment on above: Negative: 0.00 - 0.2 4 Borderline: 0.25 - 0.40 Positive: >0.40 Start: 11-14-2024 X-ray of lumbosacral spine Dr. Audelia Mace DO Work Phone: Start: 08-09-2024 Dual energy X-ray absorptiometry Dr. Audelia Mace DO Work Phone: Start: 07-31-2024 Plain x-ray of pelvi s and lower extremity Dr. Audelia Mace DO Work Phone: Start: 06-23-2024 Screening mammography Fernanda Mace DO Work Phone: Start: 06-09-2023 Screening mammography D jose Mace Work Phone: Start: 03-01-2023 Measurement of occul t blood in stool specimen using immunoassay Dr. Audelia Mace Work Phone: Start: 02-22-2023 Computerized axial tomography of lumbar spine with contrast Dr. Audelia Mace Work Phone: Start: 02-22-2023 CT of head without contrast Dr. Audelia Mace Work Phone: Start: 10-09-2022 Respiratory Panel (PCR) Dr. Audelia Mace Work Phone: Start: 10-08-2022 MRI of brain without contrast Dr. Audelia Mace Work Phone: Start: 10-08-2022 Plain chest X-ray Dr. Leatha Mace Work Phone: Start: 10-08-2022 CT angiography of he ad and neck Dr. Audelia Mace Work Phone: Start: 10-08-2022 CT of head without contrast Dr. Audelia Mace Work Phone: Start: 07-24-2022 MRI of thoracic spine Fernanda Mace Work Phone: Start: 06-02-2022 Screening mammography Fernanda Mace Work Phone: Start: 05-22-2022 MRI of cervical spin e with contrast Dr. Audelia Mace Work Phone: Start: 04-30-2022 MRI of brain without contrast Dr. Audelia Mace Work Phone: Start: 2022 CT angiography of he ad and neck Dr. Audelia Mace Work Phone: Start: 2022 Plain chest X-ray Dr. Leatha Mace Work Phone: Start: 2022 CT of head without contrast Dr. Audelia Mace Work Phone: Start: 03-31-2022 MRI of lumbar spine SARS-CoV-2 & FLU Ant igen (Rapid) Dr. Audelia Mace Work Phone: Urine culture Dr. Audelia lancaster Work Phone: Urine culture Dr. Audelia lancaster Work Phone: Plan of Treatment Date Care Activity Detail Author Start: 12-06-2024 Continuous pulse oximetry [facility] Start: 07-27-2024 Colsc flx w/rmvl of tumor polyp lesion snare tq COLONOSCOPY W/LESION REMOVAL [facility] Start: 07-27-2024 Patient discharge [facility] Start: 03-10-2023 Patient discharge [facility] Start: 03-09-2023 [facility] Start: 03-09-2023 Referral to service [facility] Start: 03-03-2023 [facility] Start: 03-02-2023 Notification of physician [facility] Start: 03-02-2023 Care regimes management [facility] Start: 02-25-2023 Application of intermittent pneumatic compression device [facility] Start: 02-25-2023 [facility] Start: 02-24-2023 End: 02-24-2023 [facility] Start: 02-24-2023 Recommendation to continue with treatment [facility] Start: 02-24-2023 Urinary bladder training [facility] Start: 02-24-2023 Referral to service [facility] Start: 02-24-2023 Admission procedure [facility] Start: 02-24-2023 Patient referral to dietitian [facility] Start: 02-24-2023 Referral to occupational therapist [facility] Start: 02-24-2023 Vital signs measurements [facility] Start: 02-24-2023 [facility] Start: 02-21-2023 Emergency dept visit high severity&threat funcj EMERGENCY DEPT VISIT HI MDM [facility] Start: 01-07-2023 [facility] Start: 10-10-2022 Patient discharge [facility] Start: 10-09-2022 Contact precautions [facility] Start: 10-09-2022 Respiratory secretion precautions [facility] Start: 10-09-2022 Referral to occupational therapist [facility] Start: 10-09-2022 Referral to service [facility] Start: 10-09-2022 Inhalation therapy procedure [facility] Start: 10-08-2022 Following clinical pathway protocol [facility] Start: 10-08-2022 Ambulation without limitation [facility] Start: 10-08-2022 Assessment of risk of venous thromboembolism [facility] Start: 10-08-2022 Insertion of catheter into peripheral vein [facility] Start: 10-08-2022 Measuring intake and output [facility] Start: 10-08-2022 Providing care according to standard [facility] Start: 10-08-2022 [facility] Start: 10-08-2022 Verification routine [facility] Start: 10-08-2022 Admission procedure [facility] Start: 10-08-2022 Oxygen therapy [facility] Start: 10-08-2022 [facility] Start: 04-30-2022 Patient discharge [facility] Start: 2022 End: 2022 Following clinical pathway protocol [facility] Start: 2022 Transfusion of blood product [facility] Start: 2022 Application of intermittent pneumatic compression device [facility] Start: 2022 Ambulation without limitation [facility] Start: 2022 Assessment of risk of venous thromboembolism [facility] Start: 2022 Cardiac monitoring [facility] Start: 2022 Catheterization of vein [facility] Start: 2022 Continuous pulse oximetry [facility] Start: 2022 Elevation of head of bed [facility] Start: 2022 Exercises [facility] Start: 2022 Implementation of planned interventions [facility] Start: 2022 Incentive spirometry [facility] Start: 2022 Insertion of catheter into peripheral vein [facility] Start: 2022 Measuring intake and output [facility] Start: 2022 Notification of physician [facility] Start: 2022 Oxygen therapy [facility] Start: 2022 Providing care according to standard [facility] Start: 2022 Referral to occupational therapist [facility] Start: 2022 Referral to service [facility] Start: 2022 Speech therapy assessment [facility] Start: 2022 [facility] Start: 2022 CT angiography of head and neck STROKE CTA Head AND Neck W/Con [facility] Work Phone: Start: 2022 CTA Head vessels and Neck vessels W contrast IV [facility] Work Phone: Start: 2022 Admission procedure [facility] Start: 2022 End: 2022 [facility] Work Phone: Alternaria alternata IgE Ab [Units/volume] in Serum [facility] Spanish Cockroach I gE Ab [Units/volume] in Serum [facility] Spanish house dust mite IgE Ab [Units/volume] in Serum [facility] Aspergillus fumigatus [facility] Bacteria identified in Urine by Culture Urine Culture [facility] Work Phone: Bermuda grass IgE Ab [Units/volume] in Serum [facility] Box elder [facility] Cat dander [facility] Cladosporium herbaru m IgE Ab [Units/volume] in Serum [facility] Common Ragweed IgE A b [Units/volume] in Serum [facility] Continuous pulse oximetry [facility] Dog epithelium IgE A b [Units/volume] in Serum [facility] house dust mite IgE Ab [Units/volume] in Serum [facility] Immunoglobulin E measurement [facility] Magnesium [Mass/volu me] in Serum or Plasma [facility] Work Phone: Mouse urine proteins [facility] Patient Education Caring for You r Incision Orthostatic Hypotension [facility] Work Phone: Patient referral [facility] Work Phone: Pecan or Stanberry Nut IgE Ab [Units/volume] in Serum [facility] Rough Pigweed IgE Ab [Units/volume] in Serum [facility] Sheep [place] IgE Ab [Units/volume] in Serum [facility] Silver Birch IgE Ab [Units/volume] in Serum [facility] Leobardo IgE Ab [Units/volume] in Serum [facility] Tree pollen [facility] [place] [facility] White Claude IgE Ab [Units/volume] in Serum [facility] White Elm IgE Ab [Units/volume] in Serum [facility] White mulberry IgE A b [Units/volume] in Serum [facility] Work Phone: Immunizations Immunization Date Immunization Notes Care Provider [facility] 05-18-2024 Seasonal trivalent influenza vaccine, adjuvanted, preservative free Dr. Audelia Mace DO Work Phone: [facility] 04-30-2022 influenza, injectabl e, quadrivalent, preservative free Dr. Audelia Mace Work Phone: [facility] 04-30-2022 influenza, seasonal, injectable Dr. Audelia Mace Work Phone: [facility] 02-24-2022 Covid (Pfizer) Dr. Audelia jordan Work Phone: [facility] 05-10-2021 Covid (Pfizer) Dr. Audelia jordan Work Phone: [facility] 11-24-2020 tetanus toxoid, redu nina diphtheria toxoid, and acellular pertussis vaccine, adsorbed [facility] 09-24-2020 Covid (Pfizer) Dr. Audelia jordan Work Phone: [facility] 09-04-2020 Covid (Pfizer) Dr. Audelia jordan Work Phone: [facility] 04-18-2015 influenza, injectabl e, quadrivalent, preservative free Dr. Audelia Mace Work Phone: [facility] 04-18-2015 influenza, seasonal, injectable [facility] Payers Date Payer Category Payer Medicare [id number] 2025 Private Health Insurance [facility] [id number] 2025 Unknown [id number] 2024 Self-pay [id number] 2017 Unknown [id number] 2015 Medicare [id number] 2011 Unknown [id number] 1950 Unknown [id number] 2.16. 840.1.859524.3.579.2.627 Unknown [id number] 2.16.8 40.1.956716.3.579.2.462 Unknown [id number] 2.16.8 40.1.628227.3.579.2.462 Unknown [id number] 2.16.8 40.1.891458.3.579.2.462 Unknown [id number] 2.16.8 40.1.859138.3.579.2.462 Unknown [id number] 2.16.8 40.1.908008.3.579.2.462 Unknown [id number] 2.16.8 40.1.174254.3.579.2.462 Unknown [id number] 2.16.8 40.1.162034.3.579.2.462 Unknown [id number] 2.16.8 40.1.957738.3.579.2.462 Unknown [id number] 2.16.8 40.1.455413.3.579.2.462 Unknown [id number] 2.16.8 40.1.789747.3.579.2.462 Unknown [id number] 2.16.8 40.1.404017.3.579.2.462 Unknown [id number] 2.16.8 40.1.242823.3.579.2.462 Unknown [id number] 2.16.8 40.1.206212.3.579.2.462 Unknown [id number] 2.16.8 40.1.802030.3.579.2.462 Unknown [id number] 2.16.8 40.1.608112.3.579.2.462 Unknown [id number] 2.16.8 40.1.153627.3.579.2.462 Unknown [id number] 2.16.8 40.1.057284.3.579.2.462 Unknown [id number] 2.16.8 40.1.184004.3.579.2.462 Unknown [id number] 2.16.8 40.1.085299.3.579.2.462 Unknown [id number] 2.16.8 40.1.272846.3.579.2.462 Unknown [id number] 2.16.8 40.1.976882.3.579.2.462 Unknown [id number] 2.16.8 40.1.026468.3.579.2.462 Unknown [id number] 2.16.8 40.1.939725.3.579.2.462 Unknown [id number] 2.16.8 40.1.585654.3.579.2.462 Unknown [id number] 2.16.8 40.1.281917.3.579.2.462 Unknown [id number] 2.16.8 40.1.227201.3.579.2.462 Unknown [id number] 2.16.8 40.1.698212.3.579.2.462 Unknown [id number] 2.16.8 40.1.477000.3.579.2.462 Unknown [id number] 2.16.8 40.1.347082.3.579.2.462 Unknown [id number] 2.16.8 40.1.953795.3.579.2.462 Unknown [id number] 2.16.8 40.1.688121.3.579.2.462 Unknown [id number] 2.16.8 40.1.353294.3.579.2.462 Unknown [id number] 2.16.8 40.1.400282.3.579.2.462 Unknown [id number] 2.16.8 40.1.363195.3.579.2.462 Unknown [id number] 2.16.8 40.1.575861.3.579.2.462 Unknown [id number] 2.16.8 40.1.334280.3.579.2.462 Unknown [id number] 2.16.8 40.1.120691.3.579.2.462 Unknown [id number] 2.16.8 40.1.363949.3.579.2.462 Unknown [id number] 2.16.8 40.1.443313.3.579.2.462 Unknown [id number] 2.16.8 40.1.543435.3.579.2.462 Unknown [id number] 2.16.8 40.1.085899.3.579.2.462 Unknown [id number] 2.16.8 40.1.364349.3.579.2.462 Unknown [id number] 2.16.8 40.1.753477.3.579.2.462 Social History Date Type Detail Facility Start: 11-24-2020 End: 10-25-2023 Tobacco smoking status AZIS Unknown if ever smoked [facility] Start: 11-24-2020 Non-smoker [facility] Start: 1950 Sex Assigned At Female [facility] Start: 07-27-2024 Tobacco smoking status NHIS Never smoked tobacco (finding) [facility] Start: 10-01-2020 End: 10-06-2024 Sex Female (finding) [facility] Tobacco smoking status [facility] NEGATED: Highlighted row Not [facility] Goals Date Patient Goal Desired Activity /State Functional Status Date Assessment Result Facility 03-10-2023 Functional status Chair [facility] Work Phone: 03-09-2023 Functional status [facility] Work Phone: 10-10-2022 Functional status Patient Activity Chair [facility] Work Phone: 10-10-2022 Functional status Activity Abili ty With Assist of 1 [facility] Work Phone: 10-09-2022 Functional status [facility] Work Phone: 04-30-2022 Functional status Activity Abili ty With Assist of 1 [facility] Work Phone: 2022 Functional status Ambulates [facility] Work Phone: Mental Status Date Assessment Result Facility 07-27-2024 Cognitive function Voice/Name [facility] Work Phone: 03-10-2023 Cognitive function Voice/Name [facility] Work Phone: 03-09-2023 Cognitive function Appropriate;Cooperativ e [facility] Work Phone: 02-22-2023 Cognitive function Level Of Cons ciousness Awake;Alert;Appropriate;Follow s Commands [facility] Work Phone: 10-10-2022 Cognitive function Voice/Name [facility] Work Phone: 10-08-2022 Cognitive function Voice/Name [facility] Work Phone: 04-30-2022 Cognitive function Voice/Name [facility] Work Phone: 2022 Cognitive function Level Of Cons ciousness Awake;Alert;Appropriate [facility] Work Phone: Clinical Notes 10-08-2022 to 02-13-2025 Note Date & Type Note Facility 02-13-2025 Evaluation + Plan note Diagnostic Tests PendingAPOE Alzheimer's Risk 02/13/25Miscellaneous LC Test 02/13/25 [facility] 12-26-2024 Procedure note [facility] 11-14-2024 Radiology Diagnostic study note [facility] [address] [place], [place] [id number] L/S Spine Min 4 Views MR#: [id number] Acct: [id number] Name: YADIRA PEREZ Rep #: [id number] : 1950 F 74 From: Jordy Soriano MD PCP: Dr. Audelia Mace DO Status: REG CLI Study:L/S Spine Min 4 Views Date of Exam: 11/14/24 Exam# [id number] Ordering Dr: Audelia Mace DO PROCEDURE: L/S SPINE MIN 4 VIEWS [...] levoscoliosis with degenerative disc disease. Reading Location: [id number] CC: Dr. 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: Signed [facility] 10-19-2024 Evaluation note Diagnosis Onset Date Resolution Fatigue chronic October 19 1:31pm Fatigue chronic November 20, 2024 12:59pm Obesity chronic November 21, 2024 11:01am MARTHA (obstructive sleep apnea) chronic November 21, 2024 11 :01am Abnormality of gait and mobility acute November 28, 2024 10:24am Fibromyalgia acute November 28, 10:24am Left hip pain acute November 28, 2 025 10:24am Migraine headache acute November 10:24am Anxiety chronic November 28, 2024 10:24am Fatigue chronic November 28, 2024 10:24am Fatigue chronic December 21, 2024 12:51pm Fatigue chronic January 22, 2025 1:00pm Dysphagia acute January 26 9:51am [facility] Work Phone: 1(645) 652-817903-12-2025 Evaluation note* Diagnosis Onset Date Resolution Status Admit Date Diverticulosis acute September 9:55am Personal history of colonic polyps acute September 27, 2024 9:55am Chronic constipation chronic Josh h 2024 9:55am Fatigue chronic October 19 1:31pm Fatigue chronic November 20, 2024 12:59pm Obesity chronic November 21, 2024 11:01am MARTHA (obstructive sleep apnea) chroni c November 21, 2024 11:01am Abnormality of gait and mobility acu te November 28, 2024 10:24am Fibromyalgia acute November 28, 10:24am Left hip pain acute November 28, 2 025 10:24am Migraine headache acute November 10:24am Anxiety chronic November 28, 2024 10:24am Fatigue chronic November 28, 2024 10:24am Fatigue chronic December 21, 2024 12:51pm [facility] Work Phone: 1(944) 392-142603-04-2025 Evaluation note* Diagnosis Onset Date Resolution Status Admit Date Fatigue chronic September 19 1:10pm Diverticulosis acute September 9:55am Personal history of colonic polyps acute September 27, 2024 9:55am Chronic constipation chronic Josh h 2024 9:55am Fatigue chronic October 19 1:31pm Fatigue chronic November 20, 2024 12:59pm Obesity chronic November 21, 2024 11:01am MARTHA (obstructive sleep apnea) chroni c November 21, 2024 11:01am Abnormality of gait and mobility acu te November 28, 2024 10:24am Fibromyalgia acute November 28 10:24am Left hip pain acute November 28, 2 025 10:24am Migraine headache acute November 10:24am Anxiety chronic November 28, 2024 10:24am Fatigue chronic November 28, 2024 10:24am [facility] Work Phone: 1(672) 884-252303-04-2025 Evaluation note* Diagnosis Onset Date Resolution Status Admit Date Fatigue chronic September 19 1:10pm Diverticulosis acute September 9:55am Personal history of colonic polyps acute September 27, 2024 9:55am Chronic constipation chronic Josh h 2024 9:55am Fatigue chronic October 19 1:31pm Fatigue chronic November 20, 2024 12:59pm Obesity chronic November 21, 2024 11:01am MARTHA (obstructive sleep apnea) chroni c November 21, 2024 11:01am Abnormality of gait and mobility acu te November 28, 2024 10:24am Fibromyalgia acute November 28 10:24am Left hip pain acute November 28, 2 025 10:24am Migraine headache acute November 10:24am Anxiety chronic November 28, 2024 10:24am Fatigue chronic November 28, 2024 10:24am Fatigue chronic December 21, 2024 12:51pm [facility] Work Phone: 1(645) 551-955401-13-2025 Evaluation note* Diagnosis Onset Date Resolution Status Admit Date Abnormality of gait and mobility acute July 31 10:27am Fibromyalgia acute July 10:27am Fusion of lumbar spine acute [facility] 2024 10:27am Left hip pain acute July [...] 10:24am Left hip pain acute November 28, 025 10:24am Anxiety chronic November 28, 2024 10:24am Fatigue chronic November 28, 2024 10:24am Mild cognitive impairment chronic November 28, 2024 10:24am [facility] Work Phone: 1(450) 677-543701-09-2025 Evaluation note* Diagnosis Onset Date Resolution Status [...] apnea) chroni c November 21, 2024 11:01am [facility] Work Phone: 1(727) 295-331201-09-2025 [facility]12-09-2024 Evaluation note* Diagnosis Onset Date Resolution Status Admit Date Fatigue chronic June 26, 2024 12:53pm Personal history of colonic polyps acute July 27 7:33am Abnormality of gait and mobility acute July 31 10:27am Fibromyalgia acute July 10:27am Fusion of lumbar spine acute [facility] 2024 10:27am Left hip pain acute July 10:27am Anxiety chronic July 31, 2024 10:27am Fatigue chronic July 31, 2024 10:27am Mild cognitive impairment chronic July 31, 2024 10:27am Fatigue chronic September 19 1:10pm Diverticulosis acute September 9:55am Personal history of colonic polyps acute September 27, 2024 9:55am Chronic constipation chronic 2024 9:55am [facility] Work Phone: 1(668) 955-703104-18-2024 Discharge summary Author Jeff Dubose [facility] November 04, 2023 10:16am Note Date/Time November 04, 2023 10: 15am [facility] [address] [place] [address] / REHABILITATION SERVICES DISCHARGE SUMMARY MR#: [id number] Acct: [id number] Name: YADIRA PEREZ Rep #: [id number] [...] please feel free to call me at [phone]. Thank you for the referral of thispatient. Sincerely, Jeff Dubose, PT, Cert MDT, OCS Balance/Gait/Functional tests Balance/Special Test Scores Oswestry Low Back Score: 20 Improvement % Improvement: 40 <Electronically signed by Jeff Dubose PT, Cert. T, OCS> 11/04/23 1016 CC: Dr. Audelia Mace, ; Dr. Neftaly Horan, DO ~ DAVIDE Signed [facility] Work Phone: 1(403) 761-820704-18-2024 Discharge summary Author Jeff Dubose [facility] November 04, 2023 10:16am Note Date/Time November 04, 2023 10: 15am [facility] [address] [place] [address] [address] [place] [address] / REHABILITATION SERVICES DISCHARGE SUMMARY MR#: [id number] Acct: [id number] Name: YADIRA PEREZ Rep #: [id number] [...] please feel free to call me at [phone]. Thank you for the referral of thispatient. Sincerely, Jeff Dubose PT, Cert MDT, OCS Balance/Gait/Functional tests Balance/Special Test Scores Oswestry Low Back Score: 20 Improvement % Improvement: 40 <Electronically signed by Jeff Dubose PT, Cert. MDT, OCS> 11/04/23 1016 CC: Dr. Audelia Mace DO; Dr. Neftaly Horan, ~ JLA Signed [facility] Work Phone: 1(658) 176-857908-22-2023 Discharge summary Author Mariluz Cisneros [facility] March 10, 2023 1:03pm Note Date/Time March 09, 2023 1: 39pm [facility] Medical Records Department [address] [place] [address] Discharge Summary 03/09/23 1330 MR#: [id number] Acct: [id number] Name: YADIRA PEREZ Rep #:[id number] : 1950 72 From: Mariluz JosiasKd Cisneros DO PCP: Dr. Audelia Mace DO Status:ADM IN Location: [place] [address] Providers Date of Admission: 02/24/23 Date of Discharge: 03/10/23 Primary Care Physician: Dr. Audelia Mace DO Reason For Visit: DEBILITY Diagnosis Discharge [...] 02/17/[address] Neftaly Horan from the [facility]. (5) Inflammatory polyarthropathy: Status: Acute Code(s): M06.4 [...] ordered and she will follow up with [place] [facility]. Plan 1. Discharge home on 03/10/2023 with [facility] home health services for continued PT/OT. 2. Follow-up with Dr. Audelia Mace and Dr. Frank Horan post discharge 3. Prescriptions were faxed to [facility] on [address] 4. DME at discharge includes a [...] BL anterior thighs. She was seen at [facility] ED. She tells me that she [...] surgical hardware. [facility] Additional W/U was unremarkable and acute rehab was recommended for strengthening. She was transferred to the acute inpt rehab unit at [facility] on 02/24/23 for 3 hours of [...] with family for close supervision. Nishant have [facility] for PT/OT. She has follow up appts scheduled with Dr. Mace and with Dr. Neftaly Horan. The sleep [...] Upon Discharge: none Please Follow Up With: Audelia Mace, DO When: You will also need to follow up with Dr. Frank Horan. Meaningful Use Info Meaningful Use Diagnoses (Choose all that apply): None applicable Discharge Plan Admission Admit Date/Time: 02/24/23 12:26 Primary Reason for Your Visit: Debility due to lumbar laminectomy and fusion. Attending Provider: Mariluz Cisneros Primary Care Provider: Audelia Mace Instructions Patient Instructions: Caring for Your Incision, [...] from theincision call Dr. Horan or Dr. Mace. 4. When you are on your trip to the [facility] [employer] make sure to stop at least once [...] not just lightheadedness. Meclizine would take at -15 minutes to be absorbed from your stomach [...] do not hesitate to call me. OFFICE: [phone] CELL: [phone] Have fun on your trip Discharge Orders/Prescriptions [...] Frank Horan [Other] - 03/16/23 10:00 am Audelia Mace DO [Primary Care Provider] - 03/12/23 12:50 pm Disposition Disposition (needs filled in before D/C Order can be placed): Home Health Service Charges/Coding Visit Charges Inpatient E&M: 42885 Disch Hosp >30min 03/10/23 1303 <Electronically signed by Mariluz Cisneros DO> Cosigner Signature (if applicable): CC: Dr. Audelia Mace DO; Dr. Mariulz Cisneros DO; Dr. Neftaly Horan DO~ Signed [facility] Work Phone: 1(205) 146-593908-22-2023 Progress note Author Mariluz Cisneros [facility] March 09, 2023 12:42pm Note Date/Time March 08, 2023 11 :36am [facility] Medical Records Department [address] [place] [address] Progress Note 03/08/23 1134 MR#: [id number] Acct: [id number] Name: YADIRA PEREZ Rep #:[id number] 21 : 1950 72 From: Mariluz Cisneros DO PCP: Dr. Audelia Mace DO Status:ADM [facility] Subjective Subjective Leila was seen on team [...] 2 weeks Charges/Coding Visit Charges Inpatient E&M: 23583 Subs Hosp L2 03/08/23 1425 <Electronically signed by Mariluz Cisneros DO> Mariluz Cisneros DO Cosceceer Signature (if applicable): CC: ~ Signed ADDENDUM [...] Signature (if applicable): Date cc: ~* Signed [facility] Work Phone: 1(992) 968-706208-22-2023 Discharge summary Author Mariluz Cisneros [facility] March 09, 2023 12:39pm Note Date/Time March 09, 2023 10 :43am [facility] Medical Records Department [address] [place] [address] Instructions for Home/Discharge Instructions 03/09/23 1039 MR#: [id number] Acct: [id number] Name: YADIRA PEREZ Rep #:[id number] : 1950 72 From: Mariluz Cisneros DO PCP: Dr. Audelia Mace DO Status:ADM IN Discharge Instructions Diet Discharge [...] Follow Up Care Please Follow Up With: Audelia Mace DO When: You will also need to [...] Attending Provider: Mariluz Cisneros Primary Care Provider: Audelia Mace Instructions Patient Instructions: Caring for Your Incision, [...] from theincision call Dr. Horan or Dr. Mace. 4. When you are on your trip to the [facility] make sure to stop at least [...] not just lightheadedness. Meclizine would take at -21 minutes to be absorbed from your stomach [...] do not hesitate to call me. OFFICE: [phone] CELL: [phone] Have fun on your trip Discharge Orders/Prescriptions [...] mg PO BID Referrals / Follow Up: Audelia Mace DO [Primary Care Provider] - Disposition Disposition (needs filled in before D/C Order can be placed): Home Health Service 03/09/23 1239<Electronically signed by Mariluz Cisneros DO>Mariluz Cisneros DO CC: Dr. Audelia Mace DO; frank horan ~ Signed [facility] Work Phone: 1(152) 127-471508-18-2023 Progress note Author Mariluz Cisneros [facility] March 05, 2023 12:41pm Note Date/Time March 04, 2023 10 :13am [facility] Medical Records Department [address] [place] [address] Progress Note 03/04/23 1013 MR#: [id number] Acct: [id number] Name: YADIRA PEREZ Rep #:[id number] 05 : 1950 72 From: Mariluz Cisneros DO PCP: Dr. Audelia Mace, DO Status:ADM IN Location: [place] [address] Subjective Subjective Afebrile VSS Maintaining appropriate oxygen [...] of 0.84. She was seen at the [facility] on September 16, 2021. She [...] Intake and Output for Last 24 Hours 08/15/23 08/16/23 08/17/23 23:59 23:59 23:59 Intake Total 1440 / [...] next Wednesday. Charges/Coding Visit Charges Inpatient E&M: 96186 Subs Hosp L2 03/05/23 1241 <Electronically signed by Mariluz Cisneros DO> Mrailuz Cisneros DO Cosigner Signature (if applicable): CC: ~ Signed [facility] Work Phone: 1(228) 579-521008-15-2023 Progress note Author Mariluz Cisneros [facility] March 02, 2023 3:28pm Note Date/Time March 02, 2023 1: 28pm [facility] Medical Records Department [address] [place] [address] Progress Note 03/02/23 1327 MR#: [id number] Acct: [id number] Name: YADIRA PEREZ Rep #:[id number] : 1950 72 From: Mariluz Cisneros DO PCP: Dr. Audelia Mace, DO Status:ADM IN Location: [address] Subjective Subjective Afebrile VSS-blood pressure and heart [...] Intake and Output for Last 24 Hours 0803/01/23 03/02/23 23:59 23:59 23:59 Intake Total 60 [...] and no ataxia today. Coordination / Balance: kamfdg-nx-vwvr test normal and xnzn-ws-iouf test normal Speech: speech normal Psych cooperative [...] BMP on Charges/Coding Visit Charges Inpatient E&M: 74074 Subs Hosp L2 03/02/23 4702 <Electronically signed by Mariluz Cisneros DO> Mariluz Cisneros DO Cosigner Signature (if applicable): CC: ~ Signed [facility] Work Phone: 1(711) 698-768008-14-2023 Progress note Author Mariluz Cisneros [facility] March 01, 2023 4:21pm Note Date/Time March 01, 2023 11 :46am [facility] Medical Records Department [address] [place] [address] Progress Note 03/01/23 1143 MR#: [id number] Acct: [id number] Name: YADIRA PEREZ Rep #:[id number] : 1950 72 From: Mariluz Cisneros DO PCP: Dr. Audelia Mace, DO Status:ADM IN Location: [place] [address] Subjective Subjective Leila was seen on team [...] PT/OT. 3. She plans on driving to [place] in mid March and was advised to [...] the week. Charges/Coding Visit Charges Inpatient E&M: 18536 Subs Hosp L2 03/01/23 1621 <Electronically signed by Mariluz Cisneros DO> Mariluz Cisneros DO Cosigner Signature (if applicable): CC: ~ Signed [facility] Work Phone: 1(625) 574-117608-11-2023 Progress note Author Mariluz Cisneros [facility] February 26, 2023 6:39pm Note Date/Time February 26, 2023 2: 52pm [facility] Medical Records Department [address] [place] [address] Progress Note 02/26/23 1448 MR#: [id number] Acct: [id number] Name: YADIRA PEREZ Rep #:[id number] : 1950 72 From: Mariluz Cisneros DO PCP: Dr. Audelia Mace, DO Status:ADM IN Location: [place] [address] Subjective Subjective Afebrile VSS Maintaining appropriate oxygen [...] Continue gabapentin. Charges/Coding Visit Charges Inpatient E&M: 68623 Subs Hosp L2 02/26/239 <Electronically signed by Mariluz Cisneros DO> Mariluz Cisneros DO Cosigner Signature (if applicable): CC: ~ Signed [facility] Work Phone: 1(819) 451-564308-11-2023 History and physical note Author Mariluz Cisneros [facility] February 26, 2023 2:47pm Note Date/Time February 25, 2023 5: 15pm [facility] Medical Records Department [facility] [place] [address] Post Admission Physician Audra 02/25/23 1713 MR#: [id number] Acct: [id number] Name: YADIRA PEREZ Rep #:[id number] : 1950 72 From: Mariluz Cisneros DO PCP: Dr. Audelia Mace DO Status:ADM IN Location: [place] [address] Admission Information Primary Diagnosis:: Debility secondary to [...] Skin integrity and Medication Management Patient needs Business Banking Manager/ Case Management for: Discharge Planning, Arranging Home [...] Therapy Was Preadmission Assessment Accurate?: Yes 02/26/23 2637 <Electronically signed by Mariluz Cisneros DO> Cosigner Signature (if applicable): CC: ~ Signed [facility] Work Phone: 1(862) 482-727308-10-2023 History and physical note Author Mariluz Jakeilana [facility] February 25, 2023 5:12pm Note Date/Time February 25, 2023 1: 32pm [facility] Medical Records Department [address] [place] [address] History & Physical Exam 02/25/23 1322 MR#: [id number] Acct: [id number] Name: YADIRA PEREZ Rep #:[id number] : 1950 72 From: Mariluz Cisneros DO PCP: Dr. Audelia Mace, DO Status:ADM IN Location: [address] HPI - General General Date of [...] anterior thighs. She was seen at the [facility] ED. She tells me that she [...] surgical hardware. [facility] Additional W/U was unremarkable and acute rehab wasrecommended for strengthening. she was transferred to the acute inpt rehab unitat [facility] on 02/24/23 for 3 hours of [...] sees Dr. Tejeda. She went to the [facility] in [place] for a second opinion and they told [...] the TV. She received a letter from [facility] following an admission in the past [...] Calcium, magnesium and phosphorus are all normal. [facility] Medical History (Updated 02/25/23 @ 17:04 by [...] 1 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 status: retired current occupation: [employer] pets and animals: Yes Smoking Status: Never smoker second hand exposure: No alcohol intake: never substance use type: does not use seatbelt use: always do you feel safe at home: Yes additional social history: - Riki ROS Review of Systems ROS Unobtainable: Denies due [...] (Auto) 66.7, Lymph % (Auto) 16.6 L, Blount % (Auto) 11.6 H, Eos % (Auto) [...] for pharmacologicDVT prophylaxis Follow up with Dr. Audelia Mace, Dr. Frank Horan following DC from [facility] AM lab including CMP, CBC, Mag [...] request records from Dr. Tejeda and [facility]. The chronic fatigue could be [...] hemoccult stool Charges/Coding Visit Charges Inpatient E&M: 54922 Init Hosp L3 02/25/23 1712 <Electronically signed by Mariluz Cisneros DO> Cosigner Signature (if applicable): CC: Dr. Audelia Mace DO; Dr. Mariluz Cisneros DO~ Signed [facility] Work Phone: 1(835) 144-389505-15-2023 Discharge summary Author Radha Mcgrath [facility] November 30, 2022 9:49am Note Date/Time November 30, 2022 9:49a m [facility] Physical Therapy [facility] [place] [address] / REHABILITATION SERVICES DISCHARGE SUMMARY MR#: [id number] Acct: [id number] Name: YADIRA PEREZ Rep #: [id number] : 1950 72 From: Radha Mcgrath PT, Cert. MDT Referring Dr.: Dr. Audelia Mace DO Status: REG RCR Insurance: MEDICARE PART A B COMMERCIAL OTHER It has been my pleasure to treat YADIRA PEREZ referred by Dr. 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 [place] [...] please feel free to call me at [phone]. Thank you for the referral of thispatient. Sincerely, Radha Mcgrath PT, Cert MDT Balance/Gait/Functional tests - Balance/Special Test Scores Lower Extremity Functional Score: 33 TUG Test Time Seconds: 19.28 Tug Test: 20-30sec.=variable mobility 30 Second Chair Rise Test Seconds: 9 <Electronically signed by Radha Mcgrath PT Cert. MDT> 11/30/22 0949 CC: Dr. Audelia Mace, DO ~ MONTEZ Signed [facility] Work Phone: 1([phone]) 718-731903-25-[address] Stoner [facility] October 10, 2022 11:46am Note Date/Time October 10, 2022 11: 37am [facility] Medical Records Department [address] [place] [address] Instructions for Home/Discharge Instructions 10/10/22 0936 MR#: [id number] Acct: [id number] Name: YADIRA PEREZ Rep #:[id number] : 1950 72 From: Raudel Michael PCP: Dr. Audelia Mace, Status:ADM IN Discharge Instructions Diet Discharge Diet: [...] Attending Provider: Raudel Stoner Primary Care Provider: Audelia Mace Consulting Providers: Rajat Dalal Discharge Orders/Prescriptions Prescriptions: [...] (CHRONIC Cough for 1month, PFT, non smoker) Audelia Mace DO [Primary Care Provider] - Disposition Disposition (needs filled in before D/C Order can be placed): Home, Self Care 10/10/22 1146<Electronically signed by Raudel Stoner MD>Raudel Stnoer MD CC: Dr. Audelia Mace DO; Dr. Rajat Dalal MD ~ Signed [facility] Work Phone: 1(798) 161-165303-24-[address] Stoner [facility] October 09, 2022 4:05pm Note Date/Time October 09, 2022 4:0 5pm [facility] Medical Records Department [address] [place] [address] Progress Note - Hospitalist 10/09/22 1553 MR#: [id number] Acct: [id number] Name: YADIRA PEREZ Rep #:[id number] : 1950 72 From: Raudel Michael PCP: Dr. Audelia Mace, DO Status:ADM IN Location: [place] [address] Reason for Visit Reason for Visit: Diagnoses [...] (Auto) 84.1 H, Lymph % (Auto) 7.7L, Blount % (Auto) 6.8, Eos % (Auto) 0.2, [...] Signed: Ruy Canales MD at 18:47 EDT Reading Location ID and State: [facility] / [place] Tel , Service support , Physical Exam Narrative Seen and examined. [...] territorial infarct. Charges/Coding Visit Charges Inpatient E&M: 90595 Subs Hosp L2 10/09/22 1605 <Electronically signed by Raudel Stoner MD> Cosigner Signature (if applicable): CC: ~ Signed [facility] Work Phone: 1(877) 153-826703-23-[address] Concepcion [facility] October 08, 2022 3:45pm Note Date/Time October 08, 2022 12: 19pm [facility] Medical Records Department [address] [place] [address] Emergency Department Summary 10/08/22 MR#: [id number] Acct: [id number] Name: YADIRA PEREZ Rep #:[id number] : 1950 72 From: Garry Hopson PCP: Dr. Audelia Mace DO Status:ADM IN Location: [address] History of Present Illness Chief Complaint: [...] per EMS. Prior similar symptoms: Yes PFSH PFS Medical History (Updated 10/08/22 @ 15:45 by [...] 1 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 status: retired current occupation: [employer] pets and animals: Yes Smoking Status: Never [...] Std Deviation 45.3 H RDW Coeff of Eduardo 12.7 Plt Count 243 MPV 10.1 Immature Gran % (Auto) 0.800 Neut % (Auto) 87.4 H Lymph % (Auto) 4.5 L Blount % (Auto) 6.4 Eos % (Auto) 0.3 [...] Pneumonia, Aphasia Disposition Disposition: Acute Care Hospital [facility] Discharge Date/Time: 10/08/22 15:37 What to do if you have Problems For any increased pain, shortness of breath, bleeding, nausea or vomiting, chestpain, or any unexpected problems, contact your Primary Care Provider. Call [facility] ([phone]) or report to the closest Emergency Room. Call 911 if necessary. 10/08/22 1545 <Electronically signed by Garry Concepcion DO> Cosigner Signature (if applicable): CC: Dr. Audelia Mace, ~ Signed [facility] Work Phone: 1(835) 126-179003-23-2023 History and physical note Author Dr. Dalal [facility] October 08, 2022 3:20pm Note Date/Time October 08, 2022 3:0 7pm [facility] Medical Records Department [address] [place] [address] H&P Exam - Hospitalist 10/08/22 1500 MR#: [id number] Acct: [id number] Name: YADIRA PEREZ Rep #:[id number] 00 : 1950 72 From: Rajat bolton MD PCP: Dr. Audelia Mace DO Status:REG ER Location: ED HPI - [...] of her presentation a strokealert was called, [facility] was able to evaluate her and felt that she would benefit from an MRI but otherwise did not feel like they were having an acute stroke. [facility] Medical History (Updated 10/08/22 @ 15:05 by [...] 1 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 status: retired current occupation: [employer] pets and animals: Yes Smoking Status: Never [...] 87.4 H, Lymph % (Auto) 4.5 L, Blount % (Auto) 6.4, Eos % (Auto) 0.3, [...] above Results were Read Back by Manfred Aaorn MD to Dr Jamey MD, and understanding [...] confirmed on 10/08/2022 12:43:31 (ET). Electronically Signed: Mafnred Aaron MD at 12:44 EDT , Chest [...] with colleagues Charges/Coding Visit Charges Inpatient E&M: 26052 Init Hosp L3 10/08/22 1520 <Electronically signed by Rajat Dalal MD> Cosigner Signature (if applicable): CC: Dr. Audelia Mace, DO; Dr. Rajat Dalal MD~ Signed [facility] Work Phone: Evaluation noteNo assessment information available [facility] Work Phone: Evaluation note* Diagnosis Onset Date Resolution Status Raynaud phenomenon chronic Facet arthritis of lumbosacral region acute [facility] Work Phone: Evaluation note* Diagnosis Onset Date Resolution Status Raynaud phenomenon chronic Facet arthritis of lumbosacral region acute Weakness of both lower extremities resolved [facility] Work Phone: Evaluation note* Diagnosis Onset Date Resolution Status Raynaud phenomenon chronic Facet arthritis of lumbosacral region acute Weakness of both lower extremities resolved Facet arthritis of lumbosacral region acute [facility] Work Phone: Evaluation note* Diagnosis Onset Date Resolution Status Facet arthritis of lumbosacral region acute Weakness of both lower extremities resolved Facet arthritis of lumbosacral region acute Mild cognitive impairment ac [place] Orthostatic hypotension acut e Anxiety chronic Depression chronic 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 Transient ischemic attack re solved [facility] Work Phone: Evaluation note* Diagnosis Onset Date Resolution Status Facet arthritis of lumbosacral region acute Mild cognitive impairment ac [place] Orthostatic hypotension acut e Anxiety chronic Depression chronic 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 Transient ischemic attack re solved [facility] Work Phone: Evaluation note* Diagnosis Onset Date Resolution Status Mild cognitive impairment ac [place] Orthostatic hypotension acut e Anxiety chronic Depression chronic 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 Transient ischemic attack re solved Acute bronchitis, unspecified acute Acute maxillary sinusitis, unspecified acute Acute alteration in mental status acute Dysarthria acute Hypoxia acute Nausea & vomiting acute Pneumonia acute Transient ischemic attack re solved [facility] Work Phone: Evaluation note* Diagnosis Onset Date Resolution Status Mild cognitive impairment ac [place] Orthostatic hypotension acut e Anxiety chronic Depression chronic 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 Transient ischemic attack re solved Acute bronchitis, unspecified acute Acute maxillary sinusitis, unspecified acute Acute alteration in mental status acute Aphasia acute Dysarthria acute Hypoxia acute Nausea & vomiting acute Pneumonia acute Transient ischemic attack re solved [facility] Work Phone: Evaluation note* Diagnosis Onset Date Resolution Status Mild cognitive impairment ac [place] Orthostatic hypotension acut e Anxiety chronic Depression chronic 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 Acute bronchitis, unspecified acute Acute maxillary sinusitis, unspecified acute Aphasia acute Dysarthria acute Hypoxia acute Nausea & vomiting acute Acute alteration in mental status resolved History of viral illness acu te [facility] Work Phone: Evaluation note* Diagnosis Onset Date Resolution Status Acute bronchitis, unspecified acute Acute maxillary sinusitis, unspecified acute Aphasia acute Dysarthria acute Hypoxia acute Nausea & vomiting acute Acute alteration in mental status resolved Transient ischemic attack re solved History of viral illness acu te Anxiety chronic Depression chronic Mild cognitive impairment ch ronic Multifactorial gait disorder chronic 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 [place] Transient ischemic attack re solved [facility] Work Phone: Evaluation note* Diagnosis Onset Date Resolution Status Acute bronchitis, unspecified acute Acute maxillary sinusitis, unspecified acute Aphasia acute Dysarthria acute Hypoxia acute Nausea & vomiting acute Acute alteration in mental status resolved Transient ischemic attack re solved History of viral illness acu te Anxiety chronic Depression chronic Mild cognitive impairment ch ronic Multifactorial gait disorder chronic 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 [place] Transient ischemic attack re solved Fatigue chronic [facility] Work Phone: Evaluation note* Diagnosis Onset Date Resolution Status Acute bronchitis, unspecified acute Acute maxillary sinusitis, unspecified acute Aphasia acute Dysarthria acute Hypoxia acute Nausea & vomiting acute Acute alteration in mental status resolved Transient ischemic attack re solved History of viral illness acu te Anxiety chronic Depression chronic Mild cognitive impairment ch ronic Multifactorial gait disorder chronic 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 [place] Transient ischemic attack re solved Fatigue chronic Fatigue chronic [facility] Work Phone: Evaluation note* Diagnosis Onset Date Resolution Status History of viral illness acu te Anxiety chronic Depression chronic Mild cognitive impairment ch ronic Multifactorial gait disorder chronic 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 [place] Transient ischemic attack re solved Fatigue chronic Fatigue chronic [facility] Work Phone: Evaluation note* Diagnosis Onset [...] chronic Peripheral vestibulopathy ch ronic Vertigo chronic [facility] Work Phone: Evaluation note* Diagnosis Onset [...] impairment ch ronic Multifactorial gait disorder chronic [facility] Work Phone: Evaluation note* Diagnosis Onset [...] sleep apnea) acute Obesity chronic Fatigue chronic [facility] Work Phone: Evaluation note* Diagnosis Onset Date Resolution Status Fatigue chronic MARTHA (obstructive sleep apnea) acute Fatigue chronic Anxiety chronic Fatigue chronic Mild cognitive impairment ch ronic Multifactorial gait disorder chronic Fatigue chronic [facility] Work Phone: Evaluation note* Diagnosis Onset Date Resolution Status MARTHA (obstructive sleep apnea) acute Fatigue chronic Anxiety chronic Fatigue chronic Mild cognitive impairment ch ronic Multifactorial gait disorder chronic Fatigue chronic Fatigue chronic [facility] Work Phone: Evaluation note* Diagnosis Onset Date Resolution Status MARTHA (obstructive sleep apnea) chronic Fatigue chronic Anxiety chronic Fatigue chronic Mild cognitive impairment ch ronic Multifactorial gait disorder chronic Fatigue chronic Fatigue chronic Obesity chronic MARTHA (obstructive sleep apnea) chronic [facility] Work Phone: History and physical note Author Dr. Dalal [facility] October 08, 2022 3:20pm Note Date/Time October 08, 2022 3:0 7pm [facility] Medical Records Department [address] [place] [address] H&P Exam - Hospitalist 10/08/22 1500 MR#: [id number] Acct: [id number] Name: YADIRA PEREZ Rep #:[id number] 00 : 1950 72 From: Rajat bolton MD PCP: Dr. Audelia Mace, DO Status:REG ER Location: ED HPI - [...] of her presentation a strokealert was called, [facility] was able to evaluate her and felt that she would benefit from an MRI but otherwise did not feel like they were having an acute stroke. [facility] Medical History (Updated 10/08/22 @ 15:05 by [...] 1 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 status: retired current occupation: [employer] pets and animals: Yes Smoking Status: Never smoker second hand exposure: No alcohol intake: never substance use type: does not use seatbelt use: always do you feel safe at home: Yes additional social history: - Riki TODD Constitutional Constitutional: Reports fatigue and weakness; Denies [...] 87.4 H, Lymph % (Auto) 4.5 L, Blount % (Auto) 6.4, Eos % (Auto) 0.3, [...] with colleagues Charges/Coding Visit Charges Inpatient E&M: 77402 Init Hosp L3 10/08/22 1520 <Electronically signed by Rajat Dalal MD> Cosigner Signature (if applicable): CC: Dr. Audelia Mace DO; Dr. Rajat Dalal MD~ Signed [facility] Work Phone: Hospital course Narrative No data available for this section [facility] Hospital Discharge instructions No data available for this section [facility] Progress note No data available for this section [facility] Reason for referral (narrative)No reason for referral information [facility] Work Phone: Summary Purpose Family History [...] November 24, 2020 11 :46am Power of Corn Chip Maker No November 24, 2020 11:46am Advance Directive Response Recorded Date/ Time Advance Directives No January 05 6:07pm Living Will No April 29 12:02pm Power of Corn Chip Maker No 2022 12:02pm Advance Directive Response Recorded Date/ Time Advance Directives No January 05 6:07pm Living Will No April 29 2:29pm Power of Corn Chip Maker No 2022 2:29pm Advance Directive Response Recorded Date/ Time Advance Directives No January 05 5:07pm Living Will No April 29 1:29pm Power of Corn Chip Maker No 2022 1:29pm Advance Directive Response Recorded Date/ Time Advance Directives No January 05 6:07pm Living Will No October 08, 2022 12:39pm Power of Corn Chip Maker No October 08 12:39pm Advance Directive Response Recorded Date/ Time Advance Directives No January 05 6:07pm Living Will No October 08, 2022 3:55pm Power of Corn Chip Maker No October 08 3:55pm Advance Directive Response Recorded Date/ Time Advance Directives No December 02 9:08am Living Will No December 02, 2022 9 :08am Power of Corn Chip Maker No December 02, 2022 9:08am Advance Directive Response Recorded Date/ Time Advance Directives No December 02 9:08am Living Will No February 22, 2023 2:32am Power of Corn Chip Maker No February 22 2:32am Advance Directive Response Recorded Date/ Time Advance Directives No December 02 9:08am Living Will No February 25 12:02pm Power of Corn Chip Maker No February 25, 023 12:02pm Advance Directive Response Recorded Date/ Time Advance Directives No December 02 8:08am Living Will No February 25 11:02am Power of Corn Chip Maker No February 25, 2 023 11:02am Advance Directive Response Recorded Date/ Time Living Will No February 25 12:02pm Do you have a Healthcare Power of Corn Chip Maker? No February 25, 2023 12:02pm Living Will No April 09, 2024 12:36pm Do you have a Healthcare Power of Corn Chip Maker? No April 09, 2024 12:36pm Living Will No July 26 11:30am Do you have a Healthcare Power of Corn Chip Maker? No July 26, 2024 11:30am Advance Directives No December 02 9:08am Advance Directive Response Recorded Date/ Time Living Will No February 25 12:02pm Do you have a Healthcare Power of Corn Chip Maker? No February 25, 2023 12:02pm Living Will No April 09, 2024 12:36pm Do you have a Healthcare Power of Corn Chip Maker? No April 09, 2024 12:36pm Advance Directives No December 02 9:08am Advance Directive Response Recorded Date/ Time Living Will No April 09, 2024 12:36pm Do you have a Healthcare Power of Corn Chip Maker? No April 09, 2024 12:36pm Advance Directives [...] Admit Date Personal history of colonic polyps Janua ry [...] MARTHA (obstructive sleep apnea) November 21 11:01am Chief Complaint Admit Date 4 M [...] m MARTHA (obstructive sleep apnea) November 21 025 11:01am Abnormality of gait and mobility November 10:24am Fibromyalgia November 28, 2024 10:24 am Left hip pain November 28, 2024 10:24 am Migraine headache November 28, 2024 10:24 am Anxiety November 28, 2024 10:24 am Fatigue November 28, 2024 10:24 am Chief Complaint Admit Date B12 September 19, 2024 1:10 pm FX [...] 2024 12:06 pm Chief Complaint Admit Date B12 September 19, 2024 1:10 pm FX [...] pm B12 December 21, 2024 12:51 pm Chief Complaint Admit Date B12 September 19, 2024 1:10 pm FX [...] pm B12 December 21, 2024 12:51 pm Cough, unspecified December 26, 2024 12:4 9pm PAIN- COPY PCP December 29, 2024 11:1 8am Reason for Visit Admit Date Fatigue September 19, 2024 1:10 pm Diverticulosis September 27, 2024 9:5 5am Personal history of colonic polyps September 27, 2024 9:55am Chronic constipation September 27, 2024 9: 55am Fatigue October 19, 2024 1:31 pm Fatigue November 20, 2024 12:59p m Obesity November 21, 2024 11:01a m MARTHA (obstructive sleep apnea) November 21, 025 11:01am Abnormality of gait and mobility November 10:24am Fibromyalgia November 28, 2024 10:24 am Left hip pain November 28, 2024 10:24 am Migraine headache November 28, 2024 10:24 am Anxiety November 28, 2024 10:24 am Fatigue November 28, 2024 10:24 am Fatigue December 21, 2024 12:51 pm Chief Complaint Admit Date Pre Colon September 27, 2024 9:5 5am PAIN- COPY PCP September 27, 2024 11: 06am B12 inject October 19, 2024 1:31 pm EORDER-LABS/ LOW BACK PAIN-XRAY November 142024 1:35pm B12 inject November 20, 2024 12:59p m 6 M FU May 6th, 2025 11:01a m 4 M FU November 28, 2024 10:24 am PAIN- COPY PCP November 28, 2024 3:20p m MARTHA December 06, 2024 12:06 pm B12 December 21, 2024 12:51 pm Cough, unspecified December 26, 2024 12:4 9pm PAIN- COPY PCP December 29, 2024 11:1 8am B12 inject January 22, 2025 1:00p m Reason for Visit Admit Date Diverticulosis September 27, 2024 9:5 5am Personal history of colonic polyps September 27, 2024 9:55am Chronic constipation September 27, 2024 9: 55am Fatigue October 19, 2024 1:31 pm Fatigue November 20, 2024 12:59p m Obesity November 21, 2024 11:01a m MARTHA (obstructive sleep apnea) November 21 025 11:01am Abnormality of gait and mobility November 10:24am Fibromyalgia November 28, 2024 10:24 am Left hip pain November 28, 2024 10:24 am Migraine headache November 28, 2024 10:24 am Anxiety November 28, 2024 10:24 am Fatigue November 28, 2024 10:24 am Fatigue December 21, 2024 12:51 pm Chief Complaint Admit Date B12 inject October 19, 2024 1:31 pm EORDER-LABS/ LOW BACK PAIN-XRAY November 142024 1:35pm B12 inject November 20, 2024 12:59p m 6 M FU November 21, 2024 11:01a m 4 M FU November 28, 2024 10:24 am PAIN- COPY PCP November 28, 2024 3:20p m MARTHA December 06, 2024 12:06 pm B12 December 21, 2024 12:51 pm Cough, unspecified December 26, 2024 12:4 9pm PAIN- COPY PCP December 29, 2024 11:1 8am B12 inject January 22, 2025 1:00p m 4 M FU January 26, 2025 9:51 am Reason for Visit Admit Date Fatigue October 19, 2024 1:31 pm Fatigue November 20, 2024 12:59p m Obesity November 21, 2024 11:01a m MARTHA (obstructive sleep apnea) November 21, 025 11:01am Abnormality of gait and mobility November 10:24am Fibromyalgia November 28, 2024 10:24 am Left hip pain November 28, 2024 10:24 am Migraine headache November 28, 2024 10:24 am Anxiety November 28, 2024 10:24 am Fatigue November 28, 2024 10:24 am Fatigue December 21, 2024 12:51 pm Fatigue January 22, 2025 1:00p m Dysphagia January 26, 2025 9:51 am Additional Source Comments INFORMATION SOURCE (unrecogn ized section and content) DATE CREATED AUTHOR 02/06/2020 [facility] DATE CREATED AUTHOR AUTHOR'S ORGANIZ ATION 02/04/2025 [facility] DATE CREATED AUTHOR AUTHOR'S ORGANIZ ATION 02/15/2025 [facility] Goals (unrecognized section and content) Goals may [...] may be documented in an alternate section No data available for this section Care Teams (unrecognized sec tion and content) Team Status: Active Member Role Status Dates Dr. Audelia Mace , DO Family Provider Active Dr. Audelia Mace , DO Primary Care Provider Active Team Status: Inactive Member Role Status Dates Dr. Audelia Maec , DO Primary Care Provider, Referrin g Provider Active Dr. Carlos Ferris , Attending Provider Active Team Status: Inactive Member Role Status Dates Dr. Audelia Mace , DO Primary Care Provider, Referrin g Provider Active Dr. Hoang Ugarte MD Attending Provider Active Team Status: Active Member Role Status Dates Dr. Audelia Mace DO Primary Care Provider Active Dr. Reggie Michele , DO Emergency Provider Active Dr. Raudel Stoner MD Admit Provider, A ttending Provider, Other Provider Active Team Status: Active Member Role Status Dates Dr. Audelia Mace , DO Primary Care Provider Active Dr. Ruy Harmon MD Attending Provider Active Team Status: Active Member Role Status Dates Dr. Audelia Mace DO Primary Care Provider Active Dr. Reggie Michele , DO Emergency Provider Active Dr. Raudel Stoner MD Admit Provider, Other Provider Active Dr. Audelia Olivo , DO Attending Provider, Other Pro vider Active Team Status: Inactive Member Role Status Dates Dr. Audelia Mace , DO Primary Care Provider, Attendin g Provider Active Team Status: Inactive Member Role Status Dates Dr. Audelia Mace , DO Primary Care Provider Active Dr. Reggie Michele , DO Emergency Provider Active Dr. Raudel Stoner MD Admit Provider, Other Provider Active Dr. Audelia Olivo , DO Attending Provider Active Team Status: Inactive Member Role Status Dates Dr. Audelia Mace , DO Primary Care Provider, Attendin g Provider Active Dr. Audelia Olivo , DO Referring Provider Active Team Status: Inactive Member Role Status Dates Dr. Audelia aMce DO Primary Care Provider Active Dr. Gerri Tejeda MD Attending Provider, Referring Provider Active Team Status: Active Member Role Status Dates Dr. Audelia Mace DO Primary Care Prov ider, Attending Provider, Referring Provider Active Team Status: Inactive Member Role Status Dates Dr. Audelia Mace DO Primary Care Provider Active Dr. Hoang Ugarte MD Attending Provider, Referring Provider Active Team Status: Active Member Role Status Dates Dr. Audelia Mace DO Primary Care Provider Active Dr. Ruy Harmon MD Attending Provider, Referring Provider Active Team Status: Active Member Role Status Dates Dr. Audelia Mace DO Primary Care Provider Active Dr. Gerri Tejeda MD Attending Provider, Referring Provider Active Team Status: Active Member Role Status Dates Dr. Audelia Mace DO Primary Care Provider Active Dr. Hoang Ugarte MD Attending Provider, Referring Provider Active Team Status: Active Member Role Status Dates Dr. Audelia Mace DO Primary Care Provider Active Dr. Ruy Harmon MD Attending Provider Active Dr. Hoang Ugarte MD Referring Provider Active Team Status: Inactive Member Role Status Dates Dr. Audelia Mace , DO Primary Care Provider, Referrin g Provider Active Elver Flores PA, PA Attending Provider Active Team Status: Active Member Role Status Dates Dr. Audelia Mace , DO Primary Care Provider Active Dr. Garry Concepcion DO Emergency Provider Active Dr. Rajat Dalal MD Attending Provider Active Team Status: Active Member Role Status Dates Dr. Audelia Mace , DO Primary Care Provider Active Dr. Garry Concepcion DO Emergency Provider Active Dr. Rajat Dalal MD Admit Provider, Attending Provider Active Team Status: Active Member Role Status Dates Dr. Audelia Mace , DO Primary Care Provider Active Dr. Garry Concepcion , DO Emergency Provider Active Dr. Rajat Dalal MD Admit Provider, Other Pro vider Active Dr. Raudel Stoner MD Attending Provider, Other Provi neva Active Team Status: Inactive Member Role Status Dates Dr. Audelia Mace , DO Primary Care Provider Active Dr. Garry Concepcion , DO Emergency Provider Active Dr. Rajat Dalal MD Admit Provider, Other Pro vider Active Dr. Raudel Stoner MD Attending Provider Active Team Status: Inactive Member Role Status Dates Dr. Audelia Mace , DO Primary Care Provider, Referrin g Provider Active Dr. Negrito Shi , DO Attending Provider Active Team Status: Inactive Member Role Status Dates Dr. Audelia Mace , DO Primary Care Prov ider, Attending Provider, Referring Provider Active Team Status: Inactive Member Role Status Dates Dr. Audelia Mace , DO Primary Care Provider, Referrin g Provider Active Shanel Bolton Active Dr. Hoang Ugarte MD Attending Provider Active Team Status: Inactive Member Role Status Dates Dr. Audelia Mace , DO Primary Care Provider Active Dr. Fili Faria MD Emergency Provider Active Team Status: Active Member Role Status Dates Dr. Audelia Mace , DO Primary Care Provider Active Dr. Mariluz Cisneros , DO Admit Pr ovider, Attending Provider, Other Provider Active Team Status: Inactive Member Role Status Dates Dr. Audelia Mace , DO Primary Care Provider Active Dr. Fili Faria MD Attending Provider, Emergency Provider Active Team Status: Inactive Member Role Status Dates Dr. Audelia Mace , DO Primary Care Provider Active Dr. Mariluz Cisneros , DO Admit Provider, Attend ing Provider Active Team Status: Inactive Member Role Status Dates Dr. Audelia Mace , Primary Care Provider Active Shanel Bolton Active Dr. Hoang Ugarte MD Attending Provider, Referring Provider Active Team Status: Inactive Member Role Status Dates Dr. Audelia Mace DO Primary Care Provider Active Dr. Mariluz Cisneros , DO Attending Provider, Re ferring Provider Active Team Status: Inactive Member Role Status Dates Dr. Audelia Mace , DO Primary Care Provider, Referrin g Provider Active Homa Ignacio DIRECTOR SAF[employer]NCIL, DIRECTOR SAF[employer]Y COUNCIL-C Attending Provider Active Team Status: Active Member Role Status Dates Dr. Audelia Mace DO Primary Care Provider Active Dr. Neftaly Horan , DO Attending Provider Active Team Status: Inactive Member Role Status Dates Dr. Audelia Mace , DO Primary Care Provider Active Dr. Pina Caballero DO Attending Provider, Referring Prov ider Active Team Status: Inactive Member Role Status Dates Dr. Audelia Mace DO Primary Care Provider Active Dr. Neftaly Horan , DO Attending Provider Active Team Status: Inactive Member Role Status Dates Dr. Audelia Mace DO Primary Care Provider Active Homa Ignacio DIRECTOR SAFETY COUNCIL, DIRECTOR SAFETY COUNCIL-C Attending Provider, Referrin g Provider Active Team Status: Inactive Member Role Status Dates Dr. Audelia Mace DO Primary Care Provider Active Start: June 21, 2024 End: June 21, 2024 Dr. Gerri Tejeda MD Attending Provider Active Start: June 21, 2024 End: June 21, 2024 Team Status: Inactive Member Role Status Dates Dr. Audelia Mace DO Primary Care Provider Active Start: June 23, 2024 End: June 23, 2024 Dr. Audelia Mace DO Attending Provider Active Start: June 23, 2024 End: June 23, 2024 Dr. Audelia Mace DO Referring Provider Active Start: June 23, 2024 End: June 23, 2024 Team Status: Inactive Member Role Status Dates Dr. Audelia Mace DO Primary Care Provider Active Start: June 26, 2024 End: June 26, 2024 Dr. Hoang Ugarte MD Attending Provider Active Start: June 26, 2024 End: June 26, 2024 Dr. Hoang Ugarte MD Referring Provider Active Start: June 26, 2024 End: June 26, 2024 Team Status: Inactive Member Role Status Dates Dr. Audelia Mace DO Primary Care Provider Active Start: June 27, 2024 End: June 27, 2024 Dr. Audelia Mace DO Attending Provider Active Start: June 27, 2024 End: June 27, 2024 Dr. Audelia Mace DO Referring Provider Active Start: June 27, 2024 End: June 27, 2024 Team Status: Active Member Role Status Dates Dr. Audelia Mace DO Primary Care Provider Active Start: June 28, 2024 [facility] Attending Provider Active Start: 2023 Team Status: Inactive Member Role Status Dates Dr. Audelia Mace DO Primary Care Provider Active Start: July 13, 2024 End: July 13, 2024 Dr. Hoang Ugarte MD Attending Provider Active Start: July 13, 2024 End: July 13, 2024 Dr. Hoang Ugarte MD Referring Provider Active Start: July 13, 2024 End: July 13, 2024 Team Status: Inactive Member Role Status Dates Dr. Audelia Mace DO Primary Care Provider Active Start: July 27, 2024 End: July 27, 2024 Dr. Audelia Mace DO Referring Provider Active Start: July 27, 2024 End: July 27, 2024 Dr. Naga Bates MD Attending Provider Active Start: July 27, 2024 End: July 27, 2024 Team Status: Active Member Role Status Dates Dr. Audelia Mace DO Primary Care Provider Active Start: July 27, 2024 Dr. Audelia Mace DO Referring Provider Active Start: July 27, 2024 Dr. Naga Bates MD Attending Provider Active Start: July 27, 2024 Dr. Naga Bates MD Other Provider Active Sta rt: July 27, 2024 Team Status: Inactive Member Role Status Dates Dr. Audelia Mace DO Primary Care Provider Active Start: July 31, 2024 End: July 31, 2024 Dr. Hoang Ugarte MD Attending Provider Active Start: July 31, 2024 End: July 31, 2024 Dr. Hoang Ugarte MD Referring Provider Active Start: July 31, 2024 End: July 31, 2024 Team Status: Inactive Member Role Status Dates Dr. Audelia Mace DO Primary Care Provider Active Start: August 09, 2024 End: August 09, 2024 Dr. Audelia Mace DO Attending Provider Active Start: August 09, 2024 End: August 09, 2024 Dr. Audelia Mace DO Referring Provider Active Start: August 09, 2024 End: August 09, 2024 Team Status: Inactive Member Role Status Dates Dr. Audelia Mace DO Primary Care Provider Active Start: September 19, 2024 End: September 19, 2024 Dr. Audelia Mace DO Referring Provider Active Start: September 19, 2024 End: September 19, 2024 Dr. Hoang Ugarte MD Attending Provider Active Start: September 19, 2024 End: September 19, 2024 Team Status: Inactive Member Role Status Dates Dr. Audelia Mace DO Primary Care Provider Active Start: September 20, 2024 End: September 20, 2024 Dr. Derik Pratt DO Attending Provider Active Start: September 20, 2024 End: September 20, 2024 Dr. Derik Pratt DO Referring Provider Active Start: September 20, 2024 End: September 20, 2024 Team Status: Inactive Member Role Status Dates Dr. Audelia Mace DO Primary Care Provider Active Start: September 27, 2024 End: September 27, 2024 Dr. Narciso Valderrama DO Attending Provider Active Start: September 27, 2024 End: September 27, 2024 Dr. Naga Bates MD Referring Provider Active Start: September 27, 2024 End: September 27, 2024 Team Status: Inactive Member Role Status Dates Dr. Audelia Mace DO Primary Care Provider Active Start: September 27, 2024 End: September 27, 2024 Dr. Gerri Tejeda MD Attending Provider Active Start: September 27, 2024 End: September 27, 2024 Dr. Gerri Tejeda MD Referring Provider Active Start: September 27, 2024 End: September 27, 2024 Team Status: Inactive Member Role Status Dates Dr. Audelia Mace DO Primary Care Provider Active Start: September 19, 2024 End: September 19, 2024 Dr. Hoang Ugarte MD Attending Provider Active Start: September 19, 2024 End: September 19, 2024 Dr. Hoang Ugarte MD Referring Provider Active Start: September 19, 2024 End: September 19, 2024 Team Status: Inactive Member Role Status Dates Dr. Audelia Mace DO Primary Care Provider Active Start: October 19, 2024 End: October 19, 2024 Dr. Hoang Ugarte MD Attending Provider Active Start: October 19, 2024 End: October 19, 2024 Dr. Hoang Ugarte MD Referring Provider Active Start: October 19, 2024 End: October 19, 2024 Team Status: Inactive Member Role Status Dates Dr. Audelia Mace DO Primary Care Provider Active Start: November 14, 2024 End: November 14, 2024 Dr. Audelia Mace DO Attending Provider Active Start: November 14, 2024 End: November 14, 2024 Dr. Audelia Mace DO Referring Provider Active Start: November 14, 2024 End: November 14, 2024 Dr. Hoang Ugarte MD Other Provider Active S tart: November 14, 2024 End: November 14, 2024 Team Status: Inactive Member Role Status Dates Dr. Audelia Mace DO Primary Care Provider Active Start: November 20, 2024 End: November 20, 2024 Dr. Audelia Mace DO Referring Provider Active Start: November 20, 2024 End: November 20, 2024 Dr. Hoang Ugarte MD Attending Provider Active Start: November 20, 2024 End: November 20, 2024 Team Status: Inactive Member Role Status Dates Dr. Audelia Mace DO Primary Care Provider Active Start: November 21, 2024 End: November 21, 2024 Dr. Audelia Mace DO Referring Provider Active Start: November 21, 2024 End: November 21, 2024 SNEHA Hoffman Attending Provider Active Start: November 21, 2024 End: November 21, 2024 Team Status: Active Member Role Status Dates Dr. Audelia Mace DO Primary Care Provider Active Team Status: Inactive Member Role Status Dates Dr. Audelia Mace DO Primary Care Provider Active Start: November 28, 2024 End: November 28, 2024 Dr. Audelia Mace DO Referring Provider Active Start: November 28, 2024 End: November 28, 2024 Dr. Hoang Ugarte MD Attending Provider Active Start: November 28, 2024 End: November 28, 2024 Team Status: Inactive Member Role Status Dates Dr. Audelia Mace DO Primary Care Provider Active Start: November 28, 2024 End: November 28, 2024 Dr. Gerri Tejeda MD Attending Provider Active Start: November 28, 2024 End: November 28, 2024 Dr. Gerri Tejeda MD Referring Provider Active Start: November 28, 2024 End: November 28, 2024 Team Status: Inactive Member Role Status Dates Dr. Audelia Mace DO Primary Care Provider Active Start: December 06, 2024 End: December 06, 2024 Slime Kellogg NP-C Attending Provider Active Start: December 06, 2024 End: December 06, 2024 Slime Kellogg NP-Josias Referring Provider Active Start: December 06, 2024 End: December 06, 2024 Team Status: Inactive Member Role Status Dates Dr. Audelia Mace DO Primary Care Provider Active Start: November 20, 2024 End: November 20, 2024 Dr. Hoang Ugarte MD Attending Provider Active Start: November 20, 2024 End: November 20, 2024 Dr. Hoang Ugarte MD Referring Provider Active Start: November 20, 2024 End: November 20, 2024 Team Status: Inactive Member Role Status Dates Dr. Audelia Mace DO Primary Care Provider Active Start: December 21, 2024 End: December 21, 2024 Dr. Audelia Mace DO Referring Provider Active Start: December 21, 2024 End: December 21, 2024 Dr. Hoang Ugarte MD Attending Provider Active Start: December 21, 2024 End: December 21, 2024 Team Status: Inactive Member Role Status Dates Dr. Audelia Mace DO Primary Care Provider Active Start: December 26, 2024 End: December 26, 2024 Dr. Audelia Mace DO Attending Provider Active Start: December 26, 2024 End: December 26, 2024 Dr. Audelia Mace DO Referring Provider Active Start: December 26, 2024 End: December 26, 2024 Team Status: Active Member Role Status Dates Dr. Audelia Mace DO Primary Care Provider Active Start: December 29, 2024 Dr. Gerri Tejeda MD Attending Provider Active Start: December 29, 2024 Dr. Gerri Tejeda MD Referring Provider Active Start: December 29, 2024 Team Status: Inactive Member Role Status Dates Dr. Audelia Mace DO Primary Care Provider Active Start: December 29, 2024 End: December 29, 2024 Dr. Gerri Tejeda MD Attending Provider Active Start: December 29, 2024 End: December 29, 2024 Dr. Gerri Tejeda MD Referring Provider Active Start: December 29, 2024 End: December 29, 2024 Team Status: Active Member Role/Relationship Status Dates Dr. Audelia Mace DO Primary Care Provider Active Team Status: Inactive Member Role/Relationship Status Dates Dr. Audelia Mace DO Primary Care Provider Active Start: September 27, 2024 End: September 27, 2024 Dr. Narciso Valderrama DO Attending Provider Active Start: September 27, 2024 End: September 27, 2024 Dr. Naga Bates MD Referring Provider Active Start: September 27, 2024 End: September 27, 2024 Team Status: Inactive Member Role/Relationship Status Dates Dr. Audelia Mace DO Primary Care Provider Active Start: September 27, 2024 End: September 27, 2024 Dr. Gerri Tejeda MD Attending Provider Active Start: September 27, 2024 End: September 27, 2024 Dr. Gerri Tejeda MD Referring Provider Active Start: September 27, 2024 End: September 27, 2024 Team Status: Inactive Member Role/Relationship Status Dates Dr. Audelia Mace DO Primary Care Provider Active Start: October 19, 2024 End: October 19, 2024 Dr. Hoang Ugarte MD Attending Provider Active Start: October 19, 2024 End: October 19, 2024 Dr. Hoang Ugarte MD Referring Provider Active Start: October 19, 2024 End: October 19, 2024 Team Status: Inactive Member Role/Relationship Status Dates Dr. Audelia Mace DO Primary Care Provider Active Start: November 14, 2024 End: November 14, 2024 Dr. Audelia Mace DO Attending Provider Active Start: November 14, 2024 End: November 14, 2024 Dr. Audelia Mace DO Referring Provider Active Start: November 14, 2024 End: November 14, 2024 Dr. Hoang Ugarte MD Other Provider Active S tart: November 14, 2024 End: November 14, 2024 Team Status: Inactive Member Role/Relationship Status Dates Dr. Audelia Mace DO Primary Care Provider Active Start: November 20, 2024 End: November 20, 2024 Dr. Hoang Ugarte MD Attending Provider Active Start: November 20, 2024 End: November 20, 2024 Dr. Hoang Ugarte MD Referring Provider Active Start: November 20, 2024 End: November 20, 2024 Team Status: Inactive Member Role/Relationship Status Dates Dr. Audelia Mace DO Primary Care Provider Active Start: November 21, 2024 End: November 21, 2024 Dr. Audelia Mace DO Referring Provider Active Start: November 21, 2024 End: November 21, 2024 ANDREW HoffmanC Attending Provider Active Start: November 21, 2024 End: November 21, 2024 Team Status: Inactive Member Role/Relationship Status Dates Dr. Audelia Mace DO Primary Care Provider Active Start: November 28, 2024 End: November 28, 2024 Dr. Audelia Mace DO Referring Provider Active Start: November 28, 2024 End: November 28, 2024 Dr. Hoang Ugarte MD Attending Provider Active Start: November 28, 2024 End: November 28, 2024 Team Status: Inactive Member Role/Relationship Status Dates Dr. Audelia Mace DO Primary Care Provider Active Start: November 28, 2024 End: November 28, 2024 Dr. Gerri Tejeda MD Attending Provider Active Start: November 28, 2024 End: November 28, 2024 Dr. Gerri Tejeda MD Referring Provider Active Start: November 28, 2024 End: November 28, 2024 Team Status: Inactive Member Role/Relationship Status Dates Dr. Audelia Mace DO Primary Care Provider Active Start: December 06, 2024 End: December 06, 2024 SNEHA Hoffman Attending Provider Active Start: December 06, 2024 End: December 06, 2024 SNEHA Hoffman Referring Provider Active Start: December 06, 2024 End: December 06, 2024 Team Status: Inactive Member Role/Relationship Status Dates Dr. Audelia Mace DO Primary Care Provider Active Start: December 21, 2024 End: December 21, 2024 Dr. Audelia Mace DO Referring Provider Active Start: December 21, 2024 End: December 21, 2024 Dr. Hoang Ugarte MD Attending Provider Active Start: December 21, 2024 End: December 21, 2024 Team Status: Inactive Member Role/Relationship Status Dates Dr. Audelia Mace DO Primary Care Provider Active Start: December 26, 2024 End: December 26, 2024 Dr. Audelia Mace DO Attending Provider Active Start: December 26, 2024 End: December 26, 2024 Dr. Audelia Mace DO Referring Provider Active Start: December 26, 2024 End: December 26, 2024 Team Status: Inactive Member Role/Relationship Status Dates Dr. Audelia Mace DO Primary Care Provider Active Start: December 29, 2024 End: December 29, 2024 Dr. Gerri Tejeda MD Attending Provider Active Start: December 29, 2024 End: December 29, 2024 Dr. Gerri Tejeda MD Referring Provider Active Start: December 29, 2024 End: December 29, 2024 Team Status: Inactive Member Role/Relationship Status Dates Dr. Audelia Mace DO Primary Care Provider Active Start: January 22, 2025 End: January 22, 2025 Dr. Audelia Mace DO Referring Provider Active Start: January 22, 2025 End: January 22, 2025 Dr. Hoang Ugarte MD Attending Provider Active Start: January 22, 2025 End: January 22, 2025 Team Status: Inactive Member Role/Relationship Status Dates Dr. Aduelia Mace DO Primary Care Provider Active Start: October 19, 2024 End: October 19, 2024 Dr. Hoang Ugarte MD Attending Provider Active Start: October 19, 2024 End: October 19, 2024 Dr. Hoang Ugarte MD Referring Provider Active Start: October 19, 2024 End: October 19, 2024 Team Status: Inactive Member Role/Relationship Status Dates Dr. Audelia Mace DO Primary Care Provider Active Start: November 14, 2024 End: November 14, 2024 Dr. Audelia Mace DO Attending Provider Active Start: November 14, 2024 End: November 14, 2024 Dr. Audelia Mace DO Referring Provider Active Start: November 14, 2024 End: November 14, 2024 Dr. Hoang Ugarte MD Other Provider Active S tart: November 14, 2024 End: November 14, 2024 Team Status: Inactive Member Role/Relationship Status Dates Dr. Audelia Mace DO Primary Care Provider Active Start: November 20, 2024 End: November 20, 2024 Dr. Hoang Ugarte MD Attending Provider Active Start: November 20, 2024 End: November 20, 2024 Dr. Hoang Ugarte MD Referring Provider Active Start: November 20, 2024 End: November 20, 2024 Team Status: Inactive Member Role/Relationship Status Dates Dr. Audelia Mace DO Primary Care Provider Active Start: November 21, 2024 End: November 21, 2024 Dr. Audelia Mace DO Referring Provider Active Start: November 21, 2024 End: November 21, 2024 SNEHA Hoffman Attending Provider Active Start: November 21, 2024 End: November 21, 2024 Team Status: Inactive Member Role/Relationship Status Dates Dr. Audelia Mace DO Primary Care Provider Active Start: November 28, 2024 End: November 28, 2024 Dr. Audelia Mace DO Referring Provider Active Start: November 28, 2024 End: November 28, 2024 Dr. Hoang Ugarte MD Attending Provider Active Start: November 28, 2024 End: November 28, 2024 Team Status: Inactive Member Role/Relationship Status Dates Dr. Audelia Mace DO Primary Care Provider Active Start: November 28, 2024 End: November 28, 2024 Dr. Gerri Tejeda MD Attending Provider Active Start: November 28, 2024 End: November 28, 2024 Dr. Gerri Tejeda MD Referring Provider Active Start: November 28, 2024 End: November 28, 2024 Team Status: Inactive Member Role/Relationship Status Dates Dr. Audelia Mace DO Primary Care Provider Active Start: December 06, 2024 End: December 06, 2024 SNEHA Hoffman Attending Provider Active Start: December 06, 2024 End: December 06, 2024 SNEHA Hoffman Referring Provider Active Start: December 06, 2024 End: December 06, 2024 Team Status: Inactive Member Role/Relationship Status Dates Dr. Audelia Mace DO Primary Care Provider Active Start: December 21, 2024 End: December 21, 2024 Dr. Hoang Ugarte MD Attending Provider Active Start: December 21, 2024 End: December 21, 2024 Dr. Honag Ugarte MD Referring Provider Active Start: December 21, 2024 End: December 21, 2024 Team Status: Inactive Member Role/Relationship Status Dates Dr. Audelia Mace DO Primary Care Provider Active Start: December 26, 2024 End: December 26, 2024 Dr. Audelia Mace DO Attending Provider Active Start: December 26, 2024 End: December 26, 2024 Dr. Audelia Mace DO Referring Provider Active Start: December 26, 2024 End: December 26, 2024 Team Status: Inactive Member Role/Relationship Status Dates Dr. Audelia Mace DO Primary Care Provider Active Start: December 29, 2024 End: December 29, 2024 Dr. Gerri Tejeda MD Attending Provider Active Start: December 29, 2024 End: December 29, 2024 Dr. Gerri Tejeda MD Referring Provider Active Start: December 29, 2024 End: December 29, 2024 Team Status: Inactive Member Role/Relationship Status Dates Dr. Audelia Mace DO Primary Care Provider Active Start: January 22, 2025 End: January 22, 2025 Dr. Audelia Mace DO Referring Provider Active Start: January 22, 2025 End: January 22, 2025 Dr. Hoang Ugarte MD Attending Provider Active Start: January 22, 2025 End: January 22, 2025 Team Status: Inactive Member Role/Relationship Status Dates Dr. Audelia Mace DO Primary Care Provider Active Start: January 26, 2025 End: January 26, 2025 Dr. Audelia Mace DO Referring Provider Active Start: January 26, 2025 End: January 26, 2025 Dr. Narciso Valderrama DO Attending Provider Active Start: January 26, 2025 End: January 26, 2025 FOR RECORDS PERTAINING TO PATIENTS WHO ARE [...] BE BASED ON THE PRIMARY CLINICAL RECORDS. [facility]. provides no warranty or guarantee of the accuracy or completeness of information in this document.
[2025-02-16] MEDS: Lidocaine Jelly 2% 20 ML Syringe (URO-JET) 1 APPLIC (07:15)
== END 2025-02-16 07:41 | disposition home or self-care (01) ==
PROVIDERS: PCP Family Medicine; Referring Provider Family Medicine; Visit Provider Internal Medicine Gastroenterology
PROC: F00ZJWZ Instrumental Swallowing and Oral Function Assessment using Swallowing Equipment (ICD-10-PCS; CPT 43235; principal; 2025-02-16 06:55)
DX: K22.2 Esophageal obstruction (principal)
CPT/HCPCS: 91010; 91013

== ENCOUNTER → 2025-03-20 | Outpatient (CLI) | payer MEDICARE, OTHER, SELFPAY ==
[2025-03-20 18:14] LABS: Hematocrit 37.0 % (37-47); Hemoglobin 11.9 g/dL (12.0-15.0); Immature Granulocytes Count 0.020 X10^3/uL (0.0-0.0); Mean Corp Hgb Conc 32.2 g/dL (32-36); Mean Corpuscular Volume 104.2 fL (81-99); Mean Platelet Vol. 11.3 fl (6.2-12.0); NRBC Flagged by Analyzer 0 % (0-5); Platelet Count 277 K/mm3 (150-450); RBC Distribution Width CV 13.0 % (11.6-14.6); RBC Distribution Width SD 49.5 fl (35.1-43.9); Red Blood Count 3.55 M/mm3 (4.2-5.4); White Blood Count 6.1 K/mm3 (4.4-11.0)
[2025-03-20 18:17] LABS: AST(SGOT) 24 U/L (<=31); Alanine Aminotransfer ALT/SGPT 15 U/L (<=34); Albumin, Serum 3.9 g/dL (3.4-4.8); Alkaline Phosphatase 55 U/L (35-104); Anion Gap 9 (5-15); BUN 19 mg/dL (4-19); BUN/Creat Ratio 17.7 RATIO (10-20); Calcium,Total 9.5 mg/dL (7.6-11.0); Carbon Dioxide 27.7 mmol/L (21.0-32.0); Chloride 102 mmol/L (98-108); Globulin 2.6 g/dL (2.2-4.2); Glucose 87 mg/dL (70-99); Potassium 4.4 mmol/L (3.3-5.1)
== END | disposition home or self-care (01) ==
LOC: MTLAB 14:17
PROVIDERS: PCP Family Medicine; Referring Provider Internal Medicine Rheumatology; Visit Provider Internal Medicine Rheumatology
DX: M06.4 Inflammatory polyarthropathy (principal); Z79.899 Other long term (current) drug therapy; R76.8 Other specified abnormal immunological findings in serum; M79.7 Fibromyalgia
CPT/HCPCS: 36415; 80053; 85025

== ENCOUNTER → 2025-04-24 | Outpatient (CLI) | payer MEDICARE, OTHER, SELFPAY ==
--- NOTE | 2025-04-24 11:17 | RAD_ITS ---
PROCEDURE: CHEST PA AND LATERAL 04/24/2025 REASON FOR EXAM: SOB, COUGH TECHNIQUE: Procedure Code: RADCXR Modality: DX Procedure: CHEST PA AND LATERAL COMPARISON: Frontal chest, 10/08/2022. FINDINGS: There is chronic elevation of the left hemidiaphragm with linear scarring in the left lung base. There is linear atelectasis in the right lung base. There is cardiomegaly. There is calcific vascular disease of the thoracic aorta. The upper abdominal bowel gas pattern is normal. There is multilevel degenerative disc disease of the thoracic spine. There is moderate arthritis of both glenohumeral joints. RAD/Chest PA and Lateral IMPRESSION: Scarring in the left lung base. Atelectasis in the right lung base. Other fin dings as noted. Reading Location: [id number]
== END | disposition home or self-care (01) ==
LOC: MTRAD 11:13
PROVIDERS: PCP Family Medicine; Referring Provider Nurse Practitioner Family; Visit Provider Nurse Practitioner Family
DX: R06.02 Shortness of breath (principal); R05.9 Cough, unspecified
CPT/HCPCS: 71046

== ENCOUNTER → 2025-05-21 | Outpatient (CLI) | payer MEDICARE, OTHER, SELFPAY ==
--- NOTE | 2025-05-21 14:31 | RAD_ITS ---
EXAM: XR Right Hip With Pelvis When Performed, 2 or 3 Views CLINICAL INDICATION: PAIN TECHNIQUE: Two or three views of the right hip with pelvis when performed. COMPARISON: No relevant prior studies available. FINDINGS: BONES/JOINTS: Total hip replacement. Intact hardware. Anatomic position. No acute fracture. No dislocation. SOFT TISSUES: Unremarkable. RAD/HIP, UNI W/ Pelvis 2-3 Views IMPRESSION: Postoperative changes as above. Reading Location: [facility]
[2025-05-21 18:04] LABS: Hematocrit 36.1 % (37-47); Hemoglobin 11.7 g/dL (12.0-15.0); Immature Granulocytes Count 0.030 X10^3/uL (0.0-0.0); Mean Corp Hgb Conc 32.4 g/dL (32-36); Mean Corpuscular Volume 102.8 fL (81-99); Mean Platelet Vol. 11.1 fl (6.2-12.0); NRBC Flagged by Analyzer 0 % (0-5); Platelet Count 266 K/mm3 (150-450); RBC Distribution Width CV 12.9 % (11.6-14.6); RBC Distribution Width SD 47.7 fl (35.1-43.9); Red Blood Count 3.51 M/mm3 (4.2-5.4); White Blood Count 5.8 K/mm3 (4.4-11.0)
[2025-05-21 18:13] LABS: AST(SGOT) 24 U/L (<=31); Alanine Aminotransfer ALT/SGPT 15 U/L (<=34); Albumin, Serum 3.7 g/dL (3.4-4.8); Alkaline Phosphatase 63 U/L (35-104); Anion Gap 8 (5-15); BUN 16 mg/dL (4-19); BUN/Creat Ratio 15.6 RATIO (10-20); Calcium,Total 9.4 mg/dL (7.6-11.0); Carbon Dioxide 28.7 mmol/L (21.0-32.0); Chloride 104 mmol/L (98-108); Globulin 2.3 g/dL (2.2-4.2); Glucose 86 mg/dL (70-99); Potassium 4.9 mmol/L (3.3-5.1)
== END | disposition home or self-care (01) ==
LOC: MTLAB 14:29
PROVIDERS: PCP Family Medicine; Referring Provider Clinical Nurse Specialist Adult Health; Visit Provider Clinical Nurse Specialist Adult Health
DX: M06.4 Inflammatory polyarthropathy (principal); Z79.899 Other long term (current) drug therapy; M25.559 Pain in unspecified hip; Z96.641 Presence of right artificial hip joint
CPT/HCPCS: 36415; 73502; 80053; 85025

== ENCOUNTER → 2025-05-30 | Outpatient (CLI) | payer MEDICARE, OTHER, SELFPAY ==
[2025-05-30 18:11] LABS: Pro- Brain NATRIURETIC PEPTIDE 469 pg/mL (<=1800)
[2025-06-04 11:08] LABS: Aspirgillus flavus Negative (Neg:<1:1); Aspirgillus fumigatus Negative (Neg:<1:1); Aspirgillus niger Negative (Neg:<1:1)
[2025-06-07 04:22] LABS: Ash, White <0.10 kU/L (Class 0); Black Walnut <0.10 kU/L (Class 0); Cat Hair / Dander,Stand <0.10 kU/L (Class 0); Cedar, Mountain <0.10 kU/L (Class 0); Cockroach, American <0.10 kU/L (Class 0); Dog Epithelia <0.10 kU/L (Class 0); Elm, American White <0.10 kU/L (Class 0); Mulberry, White <0.10 kU/L (Class 0); Oak, White <0.10 kU/L (Class 0); Pigweed, Rough <0.10 kU/L (Class 0); Ragweed, Short/Common <0.10 kU/L (Class 0); Sycamore, American <0.10 kU/L (Class 0)
== END | disposition home or self-care (01) ==
LOC: MTLAB 15:47
PROVIDERS: PCP Family Medicine; Referring Provider Nurse Practitioner Family; Visit Provider Nurse Practitioner Family
DX: R06.2 Wheezing (principal)
CPT/HCPCS: 36415; 82785; 83880; 86003; 86606

== ENCOUNTER → 2025-06-01 | Outpatient (CLI) | payer MEDICARE, OTHER, SELFPAY | END | disposition home or self-care (01) | LOC: PSN 08:22 | PROVIDERS: PCP Family Medicine; Referring Provider Nurse Practitioner Family; Visit Provider Nurse Practitioner Family | DX: R06.02 Shortness of breath (principal) | CPT/HCPCS: 94060; 94726; 94729 ==

== ENCOUNTER → 2025-06-08 | Outpatient (CLI) | payer MEDICARE, OTHER, SELFPAY ==
[2025-06-08 14:03] VITALS: PULSE 70; PULSE 71; PULSE 73; PULSE 75; PULSE 76; PULSE 77; PULSE 78; O2SAT 92; O2SAT 93; O2SAT 94; O2SAT 95; O2SAT 96; O2SAT 98
--- NOTE | 2025-06-15 09:20 | PCM.PSN.6M ---
PSN 6 Minute Walk Test 6 Minute Walk Test 6 Minute Walk Test: 6 Minute Walk Test PSN:6-Minute Walk Test Start: 06/08/25 14:03 Freq: Status: Active Protocol: [id number].6MINW Document 06/08/25 14:03 YAREDON (Rec: 06/08/25 14:17 SFENTON [id number]) 6 Minute Walk Test Date Performed 06/08/25 Time Performed 13:20 Height 5 ft 6 in Weight: 212 lb Weight in Pounds [address]: Slime [employer] Assistive device Walker used: Pre-test Oxygen Delivery Room Air Method Pulse Ox (%) 96 Pulse Rate (60-100 70 beats/min) Dyspnea Katy Scale ( 0.5 0-10) Exertion Katy Scale 6 (6-20) 1st minute Oxygen Delivery Room Air Method Pulse Ox (%) 95 Pulse Rate (60-100 77 beats/min) 2nd minute Oxygen Delivery Room Air Method Pulse Ox (%) 93 Pulse Rate (60-100 78 beats/min) Number of Rests 1 Taken Reported Symptoms Dizziness 3rd minute Oxygen Delivery Room Air Method Pulse Ox (%) 98 Pulse Rate (60-100 73 beats/min) 4th minute Oxygen Delivery Room Air Method Pulse Ox (%) 98 Pulse Rate (60-100 75 beats/min) 5th minute Oxygen Delivery Room Air Method Pulse Ox (%) 94 Pulse Rate (60-100 76 beats/min) 6th minute Oxygen Delivery Room Air Method Pulse Ox (%) 92 Pulse Rate (60-100 77 beats/min) Dyspnea Katy Scale ( 2 0-10) Exertion Katy Scale 14 (6-20) Post-test Oxygen Delivery Room Air Method Pulse Ox (%) 98 Pulse Rate (60-100 71 beats/min) Full Laps Walked 4 Partial Lap, Number 18 of Tiles Walked Total Distance 254 Walked (ft) Interpretation Interpretation: The patient ambulated 254 feet over the course of 6 minutes beginning on room air with the use of a walker. Pretesting oxygen saturation was noted to be 96% on room air. With ambulation, the lucia oxygen saturation was 92%. This represents a significant exertional oxygen desaturation, consistent with a pulmonary limitation to exercise tolerance. Recommendations Recommendations: There is no indication for the use of supplemental oxygen at this time. However, close interval follow-up is recommended, given the degree of oxygen desaturation noted during the study.
== END | disposition home or self-care (01) ==
LOC: PSN 13:11
PROVIDERS: PCP Family Medicine; Referring Provider Nurse Practitioner Family; Visit Provider Nurse Practitioner Family
DX: R06.2 Wheezing (principal); R06.02 Shortness of breath
CPT/HCPCS: 94618

== ENCOUNTER → 2025-07-09 | Outpatient (CLI) | payer MEDICARE, OTHER, SELFPAY ==
--- NOTE | 2025-07-09 10:12 | SP.MBSS_ITS ---
Modified Barium Swallow Patient Information Study Date: 07/09/25 Study Time: 10:30 Direct Billable Minutes: 106 Total Minutes procedure & reportin Diagnosis: Dysphagia R13.12 Referring Physician: Ronny Cole Reason for Referral: Re-assess aspiration risk w/ liquids and determine recommendations for least restrictive diet textures and compensatory strategies to improve swallowing safety. Medical History: The patient was referred for MBSS in December of 2024 by her PCP due to patient reports of coughing w/ food and drink, as well as heartburn. Of note, she had also been experiencing dysarthria, difficulty w/ word finding, difficulty w/ cognition, and gait difficulty w/ falls and was following w/ neurology w/ no definitive neurological diagnosis per pt. MBSS 12/26/2024 revealed moderate oropharyngeal dysphagia and esophageal dysphagia w/ Recommendations for the following: ??Regular Textures and Thin Liquids?Compensatory Strategies: Small Bites (Chew thoroughly), Small Sips (Effortful swallows), Slow Rate, Alternate bites/solids and sips/liquids and Sitting upright (During and 30-60min after meal)?GI Consult (Pt already follows w/ Dr. Valderrama for lower GI issues. Would NOT recommend esophagram due to high aspiration risk w/ sequential thin liquids.)?. The patient has followed w/ OP ST since MBSS for training in strategies to improve safety for po intake. Due to intermittent voice issues, she has also been referred to ENT by her OP UNISHEAR OPERATOR. She is now returning for repeat MBSS to determine if the pt is safe for participation in a barium esophagram. A recent esophagram was cancelled due to pt?s risk for aspiration w/ thin liquids as evidenced by her MBSS completed in December 2024. PMH: Rheumatoid arthritis, Wears glasses, Post-menopausal, Walker as ambulation aid, Bladder disease, Low iron, Back pain, Migraine headache, TIA, MARTHA, Heartburn, SOB on exertion, Anisocoria, Hypoxia, Dysarthria, Expressive aphasia, Anxiety and Depression, Vertigo, HTN, Mild cognitive impairment, Multi-factorial gait disorder, Hx of tonsillectomy - See EMR for full PMH. Current Diet Ordered: Regular textures / Thin liquids Dentition: Natural Teeth and Missing Teeth Mental Status: Impaired (MCI) Respiratory Status: Oxygenating on Room Air Penetration-Aspiration Scale Penetration-Aspiration Scale: OBJECTIVE ASSESSMENT OF SWALLOW FUNCTION (QUANTITATIVE ? PER TRIAL): PENETRATION / ASPIRATION SCALE (BERNARD): 1 = does not enter airway 2 = enters airway/above vocal folds/ejected 3 = enters airway/above vocal folds/not ejected 4 = enters airway/contacts vocal folds/ejected 5 = enters airway/contacts vocal folds/not ejected 6 = enters airway/below vocal folds/ejected 7 = enters airway/below vocal folds/not ejected despite effort 8 = enters airway/below vocal folds/no effort VIDEOFLOROSCOPIC SCALE SCORE (BERNARD): Grade I = aspiration of material that has penetrated into the laryngeal vestibule, intact cough reflex Grade II = aspiration < 10 % of the bolus, intact cough reflex Grade III = aspiration of < 10 % of the bolus, reduced cough reflex or aspiration of > 10 % of the bolus, intact cough reflex Grade IV = aspiration of > 10 % of the bolus, reduced cough reflex Penetration-Aspiration Scale Score Thin Liquid via teaspoon Chin tuck: Result: 2= enter airway/above vocal folds/ejected Thin Liquid via teaspoon Chin tuck Trial 2: Result: 2= enter airway/above vocal folds/ejected Thin Liquid via small single sip: cup Chin tuck: Result: 2= enter airway/above vocal folds/ejected Thin Liquid via single sip: straw Chin tuck: Result: 2= enter airway/above vocal folds/ejected Thin Liquid via single sip: straw: Result: 2= enter airway/above vocal folds/ejected Thin Liquid via sequential sips:straw Chin tuck: Result: 4= enters airway/contacts vocal folds/ejected Comment: Reflexive cough Shirley Thick Liquid via small single sip: cup: Result: 1= does not enter airway Pudding via teaspoon: Result: 1= does not enter airway Comment: Barium on vocal folds at the start of this trial, likely post prandial laryngeal penetration of residues of previous trials. Thin Liquid via single sip: straw Trial 2: Result: 3= enters airways/above vocal folds/not ejected Comment: Cued chin tuck, but pt was delayed in executing it. Thin Liquid via small single sip: cup Chin tuck Trial 2: Result: 2= enter airway/above vocal folds/ejected Thin Liquid and Barium Tablet w/ (partially executed) Chin Tuck: Result: 2= enter airway/above vocal folds/ejected Comment: Esophageal screen - Retention of barium tablet in the lower esophagus. Thin Liquid via small single sip: cup Chin tuck Trial 3: Result: 2= enter airway/above vocal folds/ejected Comment: Esophageal screen - Barium Liquid cleared through the LES; however, barium tablet remained in the lower esophagus. Pudding via teaspoon Trial 2: Result: 1= does not enter airway Comment: Esophageal screen - Pudding wash cleared the barium tablet through the LES. Mild retention of barium pudding in the lower esophagus. 1/2 Cookie: Result: 1= does not enter airway Oral Phase Labial Seal: Interlabial escape, no progression to anterior lip Tongue Control During Bolus Hold: Posterior escape of less than half of bolus Bolus Preparation/Mastication: Slow prolonged chewing/mashing with complete recollection Bolus Transport/Lingual Motion: Slowed tongue motion Oral Residue: Majority of bolus remaining (Piecemeal deglutition of cookie) Pharyngeal Phase Initiation of Pharyngeal Swallow: Bolus head at posterior laryngeal surgace of epiglottis Soft Palate Elevation: No bolus between soft palate and pharyngeal wall Laryngeal Elevation: Partial superior movement thyroid cart/partial apprx aryt- epig petiole Anterior Hyoid Excursion: Partial anterior movement Epiglottic Movement: Complete inversion Laryngeal Vestibule Closure at Height of Swallow: Incomplete; narrow column of air/contrast in laryngeal vestibule Pharyngeal Stripping Wave: Present - complete Pharyngoesophageal Segment Opening: Complete distension and complete duration; no obstruction of flow Tongue Base Retraction: Narrow column of contrast between tongue base & post. pharyngeal wall Pharyngeal Residue: Trace residue within or on pharyngeal structures Esophageal Phase Esophageal Clearance: Esophageal retention Diagnosis/Impression Diagnosis: Mild-moderate oropharyngeal dysphagia R13.12; Esophageal dysphagia R13.14 MBS Impressions: The oral phase is primarily marked by... -Decreased bolus control w/ premature posterior loss of <1/2 of thin liquids to the posterior surface of the epiglottis prior to swallow onset. -Slowed tongue motion for A-P transport. -Slowed, but complete mastication of cookie. Piecemeal deglutition of cookie. The pharyngeal phase is primarily marked by... -Mildly delayed swallow onset. -Mildly decreased pharyngeal motility due to decreased TB retraction w/ trace- mild pharyngeal residue. -Decreased airway closure due to decreased anterior hyoid excursion and laryngeal elevation. Deep laryngeal penetration of thin liquids to the vocal folds w/ complete ejection w/ sequential sips of thin liquids when utilizing chin tuck. Recommend small sips, one at a time w/ use of chin tuck to decrease risk for aspiration. The esophageal phase is primarily marked by... -Retention of barium tablet in the lower esophagus, which cleared through the LES when provided pudding wash; however, mild retention of pudding in the lower esophagus after the barium tablet cleared. Liquid wash was not effective to clear the barium tablet through the LES. Recommendations Diet: Regular Textures and Thin Liquids Comment: Medications whole in puree Compensatory Strategies: Small Bites (Chew thoroughly), Small Sips (Chin Tuck), Slow Rate, Alternate bites/solids and sips/liquids and Sitting upright (During and 30-60min after meal) Recommend Repeat Modified Barium Swallow: TBD Need for Skilled Speech Therapy Services: Yes Comment: Please follow up w/ OP UNISHEAR OPERATOR re: results of this MBSS. Would still hold on oropharyngeal strengthening prior to neurology determining the cause of her various neurological symptoms. Recommended Referrals: GI Consult (Continue to follow w/ OP GI as recommended by Dr. Valderrama. Would not recommend the patient for esophagram d/t aspiration risk w/ sequential sips of liquids. Several esophageal screens were taken during this study and are available to review in PACS.) Education Completed: 1. Described result of evaluation. and 2. Pt understands evaluation & agrees with goals and treatment plan. Comment: UNISHEAR OPERATOR called pt's OP UNISHEAR OPERATORAlana, and reviewed results of MBSS. Status Active ST Patient: Active Contact Information [facility] Speech Therapy:: Regina Chan M.A. [facility]-UNISHEAR OPERATOR? Speech-Language Pathologist?? [facility] [address] [place] [address]? [email or web address]?? [phone]
== END | disposition home or self-care (01) ==
LOC: RAD 10:20
PROVIDERS: PCP Family Medicine; Referring Provider Otolaryngology; Visit Provider Otolaryngology
DX: R13.10 Dysphagia, unspecified (principal)
CPT/HCPCS: 74230; 92611

== ENCOUNTER → 2025-07-10 | Outpatient (CLI) | payer MEDICARE, OTHER, SELFPAY ==
--- NOTE | 2025-07-10 09:31 | BI_ITS ---
EXAM: SCRN MAMM (CAD)W/SARATH BILAT DATE: 07/10/2025 CLINICAL HISTORY: F, Age 75 y/o , SCREENING TECHNIQUE: Procedure Code: [id number] Modality: MG Procedure: SCRN MAMM (CAD)W/SARATH BILAT COMPARISON: Prior exam(s) were compared FINDINGS: TISSUE DENSITY: There are scattered areas of fibroglandular density. Bilateral Breast Mammographic Findings: No significant masses, calcifications or other abnormalities are identified. BI/SCRN MAMM (CAD)W/SARATH BILAT IMPRESSION: No mammographic evidence of malignancy. OVERALL FINAL ASSESSMENT BI-RADS 1: NEGATIVE. RECOMMENDATION: Routine annual follow-up in 1 Year Additional Recommendation none A letter with findings and recommendations will be mailed to the patient. Reading Location: [id number]
== END | disposition home or self-care (01) ==
LOC: OPBI 09:25
PROVIDERS: PCP Family Medicine; Referring Provider Family Medicine; Visit Provider Family Medicine
DX: Z12.31 Encounter for screening mammogram for malignant neoplasm of breast (principal)
CPT/HCPCS: 77063; 77067

== ENCOUNTER 2025-07-16 09:30 | Outpatient (RCR) | payer MEDICARE, OTHER, SELFPAY ==
--- NOTE | 2025-04-17 15:56 | ST ---
[facility] Speech Pathology [address] [place] [address] Modified Barium Swallow Study MR#: [id number] Acct: [id number] Name: YADIRA PEREZ Rep #: [id number] : 1950 Age: 74 From: Regina Chan M.A., [facility] Modified Barium Swallow Patient Information Study Date: 12/26/24 Study Time: 13:00 Direct Billable Minutes: 120 Total Minutes procedure & reportin Diagnosis: R05.9; T17.908A Referring Physician: Carl Bourgeois Reason for Referral: The patient was referred for MBSS by her PCP due to patient reports of coughing w/ food and drink, especially drinks. Of note, she reports bad heartburn managed by [facility]. The patient verbalized various symptoms that have onset in the past few years and she feels are progressively worsening, including dysarthria, difficulty w/ word finding, difficulty w/ cognition, and gait difficulty w/ falls resulting in hitting her head (pt reports no LOC, no brain imaging immediately after falls). Patient did report hx of TIA. Due to these ongoing symptoms, she has been following w/ neurologist, Dr. Ugarte, for years and reports continuing to follow w/ him. She has no current definitive neurological diagnosis per patient report, but she follows for continued work up. Her next follow up is in 3-4 months. Medical History: PMH: Rheumatoid arthritis, Wears glasses, Post-menopausal, Walker as ambulation aid, Bladder disease, Low iron, Back pain, Migraine headache, TIA, MARTHA, Heartburn, SOB on exertion, Anisocoria, Hypoxia, Dysarthria, Expressive aphasia, Anxiety and Depression, Vertigo, HTN, Mild cognitive impairment, Multi-factorial gait disorder, Hx of tonsillectomy - See EMR for full PMH. Current Diet Ordered: Regular textures / Thin liquids Dentition: Natural Teeth and Missing Teeth Mental Status: Impaired (MCI) Respiratory Status: Oxygenating on Room Air Penetration-Aspiration Scale Penetration-Aspiration Scale: OBJECTIVE ASSESSMENT OF SWALLOW FUNCTION (QUANTITATIVE ? PER TRIAL): PENETRATION / ASPIRATION SCALE (BERNARD): 1 = does not enter airway 2 = enters airway/above vocal folds/ejected 3 = enters airway/above vocal folds/not ejected 4 = enters airway/contacts vocal folds/ejected 5 = enters airway/contacts vocal folds/not ejected 6 = enters airway/below vocal folds/ejected 7 = enters airway/below vocal folds/not ejected despite effort 8 = enters airway/below vocal folds/no effort VIDEOFLOROSCOPIC SCALE SCORE (BERNARD): Grade I = aspiration of material that has penetrated into the laryngeal vestibule, intact cough reflex Grade II = aspiration < 10 % of the bolus, intact cough reflex Grade III = aspiration of < 10 % of the bolus, reduced cough reflex or aspiration of > 10 % of the bolus, intact cough reflex Grade IV = aspiration of > 10 % of the bolus, reduced cough reflex Penetration-Aspiration Scale Score Thin Liquid via teaspoon: Result: 2= enter airway/above vocal folds/ejected Thin Liquid via teaspoon Trial 2: Result: 6= enters airway/below vocal folds/ejected Thin Liquid via large single sip: cup: Result: 5= enters airways/contacts vocal folds/not ejected (trace) Thin Liquid via large single sip: cup Effortful swallow: Result: 3= enters airways/above vocal folds/not ejected [employer] Thick Liquid via large single sip: cup: Result: 2= enter airway/above vocal folds/ejected Pudding via teaspoon: Result: 1= does not enter airway Comment: Esophageal screen - Retention in the middle and lower esophagus w/ min retrograde flow. Thin Liquid via single sip: straw: Result: 7= enters airways/below vocal folds/not ejected despite effort Comment: Large sip Esophageal screen - Liquid wash was mostly effective in clearing esophageal retention of the previous trial. Thin Liquid via single sip: straw Effortful swallow: Result: 2= enter airway/above vocal folds/ejected Comment: Cued small sip 1/2 Cookie coated in barium pudding: Result: 2= enter airway/above vocal folds/ejected (Trace barium on VF, [employer] suspects trace post prandial penetration of previous trial. Reflexive cough cleared trace barium from the laryngeal vestibule after swallowing the cookie.) Comment: Esophageal screen - Retention of cookie throughout the esophagus. Thin Liquid via small single sip: cup Effortful swallow: Result: 2= enter airway/above vocal folds/ejected Comment: Esophageal screen - Thin Liquid via small single sip: cup Chin tuck: Result: 2= enter airway/above vocal folds/ejected Thin Liquid via small single sip: cup Chin tuck Trial 2: Result: 2= enter airway/above vocal folds/ejected Oral Phase Labial Seal: No Labial Escape Tongue Control During Bolus Hold: Posterior escape of less than half of bolus Bolus Preparation/Mastication: Slow prolonged chewing/mashing with complete recollection Bolus Transport/Lingual Motion: Slowed tongue motion Oral Residue: Majority of bolus remaining (~50% of pudding and cookie bolus - piecemeal deglutition) Pharyngeal Phase Initiation of Pharyngeal Swallow: Bolus head in pyriforms (thin by tsp spilled to the vocal folds prior to swallow onset) Soft Palate Elevation: Trace column of contrast/air between soft palate and pharyngeal wall Laryngeal Elevation: Partial superior movement thyroid cart/partial apprx aryt-epig petiole Anterior Hyoid Excursion: Partial anterior movement Epiglottic Movement: Complete inversion Pharyngeal Stripping Wave: Present - diminished Pharyngoesophageal Segment Opening: Parital distension and partial duration; parital obstruction of flow Tongue Base Retraction: Narrow column of contrast between tongue base & post. pharyngeal wall Pharyngeal Residue: Collection of residue within or on pharyngeal structures Esophageal Phase Esophageal Clearance: Esophageal retention w/ retrograde flow below pharyngoesophageal seg. Diagnosis/Impression Diagnosis: Moderate oropharyngeal dysphagia R13.12; Esophageal dysphagia R13.14 Impression: The oral phase is primarily marked by... -Decreased bolus control w/ premature posterior loss of thin liquids by tsp to the vocal folds prior to swallow onset w/ reflexive coughing preventing aspiration. Decreased bolus control greatly increases aspiration risk. -Slowed tongue motion for A-P transport. -Slowed, but complete mastication of cookie. Piecemeal deglutition of pudding and cookie. The pharyngeal phase is primarily marked by... -Mildly delayed swallow onset. -Mildly decreased pharyngeal motility due to decreased TB retraction and pharyngeal stripping wave. -Decreased airway closure due to decreased anterior hyoid excursion and laryngeal elevation w/ aspiration of thin liquids via large straw sip. Use of decreased bolus size in addition to either effortful swallow or chin tuck decreased the patient's risk for aspiration. See full PAS scores and details above. The esophageal phase is primarily marked by... -Retention of pudding in the middle and lower esophagus w/ min retrograde flow, which mostly cleared w/ thin liquid wash. -Retention of cookie throughout the esophagus, which mostly cleared w/ thin liquid wash. Recommendations Diet: Regular Textures and Thin Liquids Compensatory Strategies: Small Bites (Chew thoroughly), Small Sips (Effortful swallows), Slow Rate, Alternate bites/solids and sips/liquids and Sitting upright (During and 30-60min after meal) Recommend Repeat Modified Barium Swallow: TBD Need for Skilled Speech Therapy Services: Yes Comment: -Train the patient in use of strategies to decrease risk for aspiration and reflux aspiration. Effortful swallow has been recommended to decrease risk for aspiration w/ liquids; however, if pt fatigues w/ effortful swallow, a chin tuck was also effective. She could consider alternating between use of these two strategies in attempt to reduce fatigue. -Ongoing assessment of diet tolerance of recommended textures. If poor diet tolerance, would consider downgrade to mildly thick liquids; however, pt expressed that hydration is of utmost importance to her, so [employer] [employer] recommended continuing w/ thin liquids and utilizing strategies to decrease aspiration risk. -Implement and educate about importance of thorough oral care routine. -Would hold on oropharyngeal exercise program until further neurological work up has been completed. Could consider participation in EMST to decrease aspiration risk and improve cough strength. -Would consider the patient for speech production and cognitive-linguistic assessment given dysarthria, expressive aphasia, and mild cognitive impairment. Recommended Referrals: GI Consult (Pt already follows w/ Dr. Valderrama for lower GI issues. Would NOT recommend esophagram due to high aspiration risk w/ sequential thin liquids.) Education Completed: 1. Described result of evaluation. and 2. Pt understands evaluation & agrees with goals and treatment plan. Status Active ST Patient: Active Contact Information [facility] Speech Therapy:: Regina Chan M.A. [facility]? Speech-Language Pathologist?? [facility] [address] [place] [address]? [email or web address]?? [phone]
--- NOTE | 2025-04-17 16:02 | HP.SP.EV_ITS ---
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 Other Relevant Medical History/Diagnoses/Surgery: YADIRA PEREZ is a 74 year old female who presents to [facility] for evaluation of oropharyngeal and esophageal dysphagia. Yadira attended the evaluation alone the first half of the evaluation and served as the historian. Her joined the evaluation after the case history was collected. Pt has not been following the swallowing strategies recommended after her MBSS on 12/26/24. Pt initially believed she was at a speech evaluation to assess her slurred speech and was unaware that the evaluation was to assess swallowing. Pt reported that she recently underwent esophageal manometry testing with Dr. Valderrama reportedly recommending consuming lemon juice or Botox. Reviewed GI notes and there was no reported recommendations following the manometry testing. Pt reported that her coughing is more frequent in the morning and certain foods such as ice cream and watermelon make it worse. Pt reported motor difficulties and discoordination. She frequently falls when trying to walk without assistance. Pt has no diagnosis regarding motor difficulty. Pt also reporting that her speech will slur intermittently throughout the day. ST can confirm this report because during case history, Pt's speech was initially slurred for about 15-20 min. and then cleared up and was WNL for the rest of the session. Observations of Pt's voice include: intermittent pitch breaks, intermittent breathiness, and intermittent reduced vocal intensity. Reviewed neurology notes from Dr. Ugarte and there has been no official neurological diagnosis at this time. She noted that she's been experiencing memory loss, but doesn't believe she has Alzheimer's. Pt claimed test results regarding Alzheimer's have not been revealed yet. Pt experienced a TIA on 04/29/22 and noted that her swallowing has been affected since then. Pt reported that she was tested for MS and Parkinson's which were both ruled out. Pt has not seen an ENT yet, but expressed interest in seeing one. ST endorsing considerations for ENT d/t pitch breaks, breathiness, and reduced vocal intensity that occur intermittently. Given Pt's risk for a spiration, would like to rule out any potential vocal pathologies. Smoking Status: Never smoker Diagnosis Diagnosis: Moderate oropharyngeal dysphagia and Esophageal dysphagia Pain Is pain an issue with your current prescribed condition?: No Personal Preferred language: Japanese Patient Allergies Allergies Allergies: Allergies codeine Allergy (Verified 02/21/25 11:14) Rash Subjective Dysphagia Symptoms Reported Symptoms/Problems with: Coughing, Choking and Difficulty Swallowing Liquids Current Diet Solids Current Diet: Regular Current Diet Liquids Current Liquids: Thin Comments Education on MBSS results from 12/26/24: -: Direct education provided re: Pt?s MBSS from 12/26/2024. Pt reporting that she has not been utilizing the swallowing strategies that were recommended at the time of her swallow study. Pt reports not recalling what the strategies were. Reviewed her MBSS results via discussing her anatomy, our body?s protection mechanisms during the swallow, along with evidence of aspiration observed during the swallow study. Answered all questions Pt had regarding her anatomy and observed strengths and deficits during the study. Discussed how swallow exercises were not recommended at the time of the study while neurology continues their workup. Discussed how swallowing exercises may be contraindicated depending on what her neurological diagnosis ends up being, so we will hold off on exercises at this time. Instead, we?ll use safe swallowing strategies recommended from the MBSS during PO intake to help manage penetration/aspiration symptoms. Objective Dysphagia Administered by Administered by: Self Thin Liquids Administred via: Cup Positioning: Chin Tuck Oral Transit: Delay > 5 seconds Bolus clearance: fully cleared Gagging: No Cough: immediate and productive Pharyngeal phase: suspect pharyngeal deficits and pooling gurgling laryngeal Patient Report: Pt reporting that she will often take a sip of water, swallow half of the bolus, hold the other half in her oral cavity and then swallow the second one separately. We discussed starting with a smaller sip so she would not have to piecemeal her sips and also lessen her risk of posterior loss of bolus w hich we observed on the MBSS. Pt functional in adapting sip size independently. ST providing positive feedback. Comments: Pt trialing sips of thin liquid via cup while implementing her first safe swallowing strategy: effortful swallow. Upon first sip, Pt tilting back her head to take a drink which resulted in immediate s/sx of penetration/aspiration hard, dry, productive cough. Wet vocal quality not observed although Pt reporting her voice does get gurgly at times. Corrected Pt on the head tilt and coached her on keeping a neutral head position. Pt trialing effortful swallow for 4 more swallows and she was functional in implementing a small sip with it. The effortful swallow appeared effective from the bedside. Pt reporting it felt better to her as well. She had no s/sx of penetration/aspiration on these four sips. Trialed second safe swallowing strategy via a chin tuck. On first sip, Pt accidentally attempting to combine chin tuck and effortful swallow which resulted in immediate hard, dry, productive cough. Wet vocal quality not observed although Pt reporting her voice does get gurgly at times. Reminded Pt to just use the chin tuck along with a small sip. Pt functional in adjusting and completed 4 more swallows with chin tucks independently. The chin tuck also appeared effective from the bedside. Pt reporting it felt better to her as well. She had no s/sx of penetration/aspiration on these four sips. Recommended Pt start with effortful swallow during meals and any PO intake, however if she notices herself fatiguing towards the end of a meal, switch to a chin tuck to help continue with protecting her airway. Wrote down the strategies for Pt to take home with her. Pt reporting understanding of how to implement the strategies at home. Impact Impact on Safety & Functioning: Risk for Aspiration and Risk for Inadequate Nutrition/Hydration Recommendations Swallowing Treatment: Yes Diet Texture Recommendations Liquids: Thin (Level 0) Safety Saftey Precautions/Swallowing Recommendations (Check all that Apply): 1 to 1 Close Supervision, Needs Verbal Cues to Use Recommended Strategies and Other (Specify Below) Results Swallowing Within Normal Limits: No Swallowing Diagnosis: Oropharyngeal Phase Dysphagia (R13.12) and Pharyngoesophageal Phase Dysphagia (R13.14) Severity: Moderate Objective Oral Motor Oral Status Dentition: WNL Labial Impairment: WNL Observation at Rest: WNL Closure: WNL Alternating Pucker/Retraction: WNL Involuntary Movement noted: No Lingual Impairment: WNL Protrusion: WNL Retraction: WNL Lateralization: WNL Involuntary Movement: No (No fasciculations present) Jaw Impairment: WNL Opening: WNL Closing: WNL Involuntary Movement: No Oral Motor Comments Comments: Pt with equal bilateral elevation of both the palatopharyngeal and palatoglossal arches. 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 Of note, she reports bad heartburn managed by [facility]. The patient verbalized various symptoms that have onset in the past few years and she feels are progressively worsening, including dysarthria, difficulty w/ word finding, difficulty w/ cognition, and gait difficulty w/ falls resulting in hitting her head (pt reports no LOC, no brain imaging immediately after falls). Patient did report hx of TIA. Due to these ongoing symptoms, she has been following w/ neurologist, Dr. Ugarte, for years and reports continuing to follow w/ him. She has no current definitive neurological diagnosis per patient report, but she follows for continued work up. Her next follow up is in 3-4 months. Medical History: PMH: Rheumatoid arthritis, Wears glasses, Post-menopausal, Walker as ambulation aid, Bladder disease, Low iron, Back pain, Migraine headache, TIA, MARTHA, Heartburn, SOB on exertion, Anisocoria, Hypoxia, Dysarthria, Expressive aphasia, Anxiety and Depression, Vertigo, HTN, Mild cognitive impairment, Multi-factorial gait disorder, Hx of tonsillectomy - See EMR for full PMH. Current Diet Ordered: Regular textures / Thin liquids Dentition: Natural Teeth and Missing Teeth Mental Status: Impaired (MCI) Respiratory Status: Oxygenating on Room Air Penetration-Aspiration Scale Penetration-Aspiration Scale: OBJECTIVE ASSESSMENT OF SWALLOW FUNCTION (QUANTITATIVE ? PER TRIAL): PENETRATION / ASPIRATION SCALE (BERNARD): 1 = does not enter airway 2 = enters airway/above vocal folds/ejected 3 = enters airway/above vocal folds/not ejected 4 = enters airway/contacts vocal folds/ejected 5 = enters airway/contacts vocal folds/not ejected 6 = enters airway/below vocal folds/ejected 7 = enters airway/below vocal folds/not ejected despite effort 8 = enters airway/below vocal folds/no effort VIDEOFLOROSCOPIC SCALE SCORE (BERNARD): Grade I = aspiration of material that has penetrated into the laryngeal vestibule, intact cough reflex Grade II = aspiration < 10 % of the bolus, intact cough reflex Grade III = aspiration of < 10 % of the bolus, reduced cough reflex or aspiration of > 10 % of the bolus, intact cough reflex Grade IV = aspiration of > 10 % of the bolus, reduced cough reflex Penetration-Aspiration Scale Score Thin Liquid via teaspoon: Result: 2= enter airway/above vocal folds/ejected Thin Liquid via teaspoon Trial 2: Result: 6= enters airway/below vocal folds/ejected Thin Liquid via large single sip: cup: Result: 5= enters airways/contacts vocal folds/not ejected (trace) Thin Liquid via large single sip: cup Effortful swallow: Result: 3= enters airways/above vocal folds/not ejected [place] Thick Liquid via large single sip: cup: Result: 2= enter airway/above vocal folds/ejected Pudding via teaspoon: Result: 1= does not enter airway Comment: Esophageal screen - Retention in the middle and lower esophagus w/ min retrograde flow. Thin Liquid via single sip: straw: Result: 7= enters airways/below vocal folds/not ejected despite effort Comment: Large sip Esophageal screen - Liquid wash was mostly effective in clearing esophageal retention of the previous trial. Thin Liquid via single sip: straw Effortful swallow: Result: 2= enter airway/above vocal folds/ejected Comment: Cued small sip 1/2 Cookie coated in barium pudding: Result: 2= enter airway/above vocal folds/ejected (Trace barium on VF, FRICTION WELDING MACHINE OPERATOR suspects trace post prandial penetration of previous trial. Reflexive cough cleared trace barium from the laryngeal vestibule after swallowing the cookie.) Comment: Esophageal screen - Retention of cookie throughout the esophagus. Thin Liquid via small single sip: cup Effortful swallow: Result: 2= enter airway/above vocal folds/ejected Comment: Esophageal screen - Thin Liquid via small single sip: cup Chin tuck: Result: 2= enter airway/above vocal folds/ejected Thin Liquid via small single sip: cup Chin tuck Trial 2: Result: 2= enter airway/above vocal folds/ejected Oral Phase Labial Seal: No Labial Escape Tongue Control During Bolus Hold: Posterior escape of less than half of bolus Bolus Preparation/Mastication: Slow prolonged chewing/mashing with complete recollection Bolus Transport/Lingual Motion: Slowed tongue motion Oral Residue: Majority of bolus remaining (~50% of pudding and cookie bolus - piecemeal deglutition) Pharyngeal Phase Initiation of Pharyngeal Swallow: Bolus head in pyriforms (thin by tsp spilled to the vocal folds prior to swallow onset) Soft Palate Elevation: Trace column of contrast/air between soft palate and pharyngeal wall Laryngeal Elevation: Partial superior movement thyroid cart/partial apprx aryt- epig petiole Anterior Hyoid Excursion: Partial anterior movement Epiglottic Movement: Complete inversion Pharyngeal Stripping Wave: Present - diminished Pharyngoesophageal Segment Opening: Parital distension and partial duration; parital obstruction of flow Tongue Base Retraction: Narrow column of contrast between tongue base & post. pharyngeal wall Pharyngeal Residue: Collection of residue within or on pharyngeal structures Esophageal Phase Esophageal Clearance: Esophageal retention w/ retrograde flow below pharyngoesophageal seg. Diagnosis/Impression Diagnosis: Moderate oropharyngeal dysphagia R13.12; Esophageal dysphagia R13.14 Impression: The oral phase is primarily marked by... -Decreased bolus control w/ premature posterior loss of thin liquids by tsp to the vocal folds prior to swallow onset w/ reflexive coughing preventing aspiration. Decreased bolus control greatly increases aspiration risk. -Slowed tongue motion for A-P transport. -Slowed, but complete mastication of cookie. Piecemeal deglutition of pudding and cookie. The pharyngeal phase is primarily marked by... -Mildly delayed swallow onset. -Mildly decreased pharyngeal motility due to decreased TB retraction and pharyngeal stripping wave. -Decreased airway closure due to decreased anterior hyoid excursion and laryngeal elevation w/ aspiration of thin liquids via large straw sip. Use of decreased bolus size in addition to either effortful swallow or chin tuck decreased the patient's risk for aspiration. See full PAS scores and details above. The esophageal phase is primarily marked by... -Retention of pudding in the middle and lower esophagus w/ min retrograde flow, which mostly cleared w/ thin liquid wash. -Retention of cookie throughout the esophagus, which mostly cleared w/ thin liquid wash. Recommendations Diet: Regular Textures and Thin Liquids Compensatory Strategies: Small Bites (Chew thoroughly), Small Sips (Effortful swallows), Slow Rate, Alternate bites/solids and sips/liquids and Sitting upright (During and 30-60min after meal) Recommend Repeat Modified Barium Swallow: TBD Need for Skilled Speech Therapy Services: Yes Comment: -Train the patient in use of strategies to decrease risk for aspiration and reflux aspiration. Effortful swallow has been recommended to decrease risk for aspiration w/ liquids; however, if pt fatigues w/ effortful swallow, a chin tuck was also effective. She could consider alternating between use of these two strategies in attempt to reduce fatigue. -Ongoing assessment of diet tolerance of recommended textures. If poor diet tolerance, would consider downgrade to mildly thick liquids; however, pt expressed that hydration is of utmost importance to her, so FRICTION WELDING MACHINE OPERATOR recommended continuing w/ thin liquids and utilizing strategies to decrease aspiration risk. -Implement and educate about importance of thorough oral care routine. -Would hold on oropharyngeal exercise program until further neurological work up has been completed. Could consider participation in EMST to decrease aspiration risk and improve cough strength. -Would consider the patient for speech production and cognitive-linguistic assessment given dysarthria, expressive aphasia, and mild cognitive impairment. Recommended Referrals: GI Consult (Pt already follows w/ Dr. Valderrama for lower GI issues. Would NOT recommend esophagram due to high aspiration risk w/ sequential thin liquids.) Education Completed: 1. Described result of evaluation. and 2. Pt understands evaluation & agrees with goals and treatment plan. Status Active ST Patient: Active Contact Information [facility] Speech Therapy:: Regina Chan M.A. [facility]-[employer] WELDING MACHINE OPERATOR? Speech-Language Pathologist?? [facility] [address] [place] [address]? [email or web address]?? [phone] Initialized on 04/17/25 15:56 - END OF NOTE Swallowing Performance Scale Swallowing Performance Scale Swallowing Performance Scale Result: 5 Moderate Reference: Neuro-QoL instrument Radiation Oncology Patient Plan Plan Plan: Will rx Pt for skilled outpatient tx to address deficits in oropharyngeal dysphagia. Pt would benefit from training and education re: implementing safe swallowing strategies and diet tolerance checks to aid in reduction of signs and symptoms of penetration/aspiration. Without skilled intervention, Pt is at risk for consuming a restrictive diet putting her at risk for aspiration pneumonia and atrophy of laryngeal musculature. Recommendations Treatment Warranted: Yes Treatment Warranted: Dysphagia Comment: - CONTINUE WITH NEUROLOGY AND GI - PARTICIPATE IN EVALUATION WITH ENT TO RULE OUT POTENTIAL VOCAL CORD PATHOLOGIES - PARTICIPATE IN FEES PROCEDURE SHOULD DYSPHAGIA SYMPTOMS PERSIST AFTER IMPL EMENTATION OF SAFE SWALLOWING STRATEGIES Progress Prognosis: Good Frequency Frequency: Monthly Additional (Frequency): - will increase visits if Pt requires closer monitoring Duration: 3 Months Patient/Family Goal Patient/Family Goal: Improve swallowing function Goals that are Established Determination:: Goals will be added/modified as deemed necessary and appropriate. Therapy will be discontinued when results of re-evaluation indicate therapy is no longer needed or lack of progress has been documented. Goal #1-5 Goal #1: Yadira will show understanding of safe swallowing strategies (i.e., small bites/drinks, slow rate of intake, effortful swallow, chin tuck) via self report of implementation at home across three monthly follow up appointments with 100% acc independently. Goal #2: Yadira will participate in meal analysis to determine carryover of safe swallowing strategies with 90% of her meal in at least two of three monthly follow up appointments. Education Patient has Indicated that the Following Identified Educational Needs: None The Patient has indicated that they have no educational or learning abilities that may effect their care.: Yes Patient Instruction Patient Education: Diagnosis, Treatment Plan and Goals Person Taught: Patient and Family Teaching Method: Discussion and Demonstration Response to teaching: Verbalize Understanding
--- NOTE | 2025-07-16 12:31 | HP.SP.DC_ITS ---
ST Discharge Summary Discharged: Discharge: SHITAL PEREZ is a 75 year old female who presented to [facility] Speech Therapy on 04/17/2025 following a diagnosis of dysphagia and previous participation in a modified barium swallow study which recommended intervention. Pt also thought she was at speech therapy because her speech will intermittently slur throughout the day. Discussed the speech deficits needed to be discussed with her neurologist. Therapy targeted implementing safe swallowing strategies of a chin tuck or effortful swallow but to hold on swallowing exercises d/t an undetermined neurological dx. We also completed several meal analyses where ST provided coaching on bite size, bolus control, and mixed texture strategies to implement while eating foods like soups, grapes, and watermelon. Today, 07/16/2025, we reviewed Pt's follow-up MBSS from last week that was recommended by Dr. Brice, ENT, after ST referred to him for voice breaks lasting for prolonged periods of time. Dr. Brice wanted Pt to participate in an esophagram, however given the results of the first and now second MBSS, Pt cont inues to be at risk for aspiration in this type of assessment. Created a handout detailing the recommendations which were to continue with chin tuck, taking medications with a puree, and spit more frequently when brushing her teeth and to swish and spit at the end to reduce residue. ST also offering suggestion of a nosey cup to reduce head back tilting when drinking out a cup. Lastly, ST recommending to cease meal time if Pt is starting to fatigue. Discussed that it could be beneficial to eat smaller, more frequent meals throughout the day vs. 2-3 big ones. Shital enquired about what we could do to prep her to participate in an esophagram with ST reporting we are unable to implement swallowing exercises at this time d/t neurology still considering a differential. Reviewed that Pt gets fatigued with meal time and how swallowing exercises can be contraindicated with certain neurological dx d/t increasing fatigue and weakening swallowing muscles, so since we do not have a dx at this time, it is safer to manage the dysphagia symptoms with strategies. Pt and expressing understanding. Recommended to continue with all specialists including, ENT, GI, pulmonology, and neurology to determine an appropriate diagnosis. Pt appropriate to d/c at this time d/t Pt showing understanding and implementation of all swallowing strategies. Discussed Pt returning to therapy in the future should she have a status change or a diagnosis has been determined. Pt agreeing to this POC. Thank you for allowing me to participate in the care of this patient.
== END 2025-07-16 13:43 | disposition home or self-care (01) ==
LOC: SP 09:30
PROVIDERS: PCP Family Medicine; Referring Provider Family Medicine; Visit Provider Family Medicine
DX: R13.10 Dysphagia, unspecified (principal); Z86.73 Personal history of transient ischemic attack (TIA), and cerebral infarction without residual deficits
CPT/HCPCS: 92526; 92610